=== PATIENT | female | born 1955 | race African-American/Black ===

== ENCOUNTER → 2016-11-05 | Outpatient (REF) | payer MEDICAID ==
[~2016-11-05] MED LIST: ACET-654 PO; AMLO10TA PO; AMLO5TAB2 PO; ATOR1TAB21 PO; ATOR40TA PO; BACL10TA PO; BACL10TA2 PO; CALC600T28 PO; CALC600T53 PO; CALC600T7 PO; COLA100C PO; COUM1TAB17 PO; FERR325T PO; GABA300C3 PO; GABA600T PO; HYDR200T3 PO; ISON300T4 PO; LIDO1OIN2 TOP; LISI10TA4 PO; MAPA325T2 PO; MILKSUS PO; PEG1POW PO; PYRI50TA PO; SENO8.6T10 PO; SERT25TA85 PO; ZOLO25TA PO
[2016-11-05 11:17] LABS: INR 2.64
== END ==
PROVIDERS: ATTEND Nurse Practitioner Family
DX: Z51.81 Encounter for therapeutic drug level monitoring (principal); Z79.01 Long term (current) use of anticoagulants; I63.9 Cerebral infarction, unspecified

== ENCOUNTER → 2016-11-26 | Outpatient (REF) | payer MEDICAID ==
[2016-11-26 09:39] LABS: INR 2.61
== END ==
PROVIDERS: ATTEND Nurse Practitioner Family
DX: Z51.81 Encounter for therapeutic drug level monitoring (principal); Z79.01 Long term (current) use of anticoagulants; Z86.73 Personal history of transient ischemic attack (TIA), and cerebral infarction without residual deficits

== ENCOUNTER → 2016-12-03 | Outpatient (REF) | payer MEDICAID ==
[2016-12-03 09:40] LABS: INR 2.55
== END ==
PROVIDERS: ATTEND Nurse Practitioner Family
DX: Z51.81 Encounter for therapeutic drug level monitoring (principal); S61.401A Unspecified open wound of right hand, initial encounter; X58.XXXA Exposure to other specified factors, initial encounter; Y92.9 Unspecified place or not applicable; Z79.01 Long term (current) use of anticoagulants

== ENCOUNTER → 2016-12-10 | Outpatient (REF) | payer MEDICAID ==
[2016-12-10 11:16] LABS: INR 4.9
== END ==
PROVIDERS: ATTEND Nurse Practitioner Family
DX: Z51.81 Encounter for therapeutic drug level monitoring (principal); Z79.01 Long term (current) use of anticoagulants; Z86.73 Personal history of transient ischemic attack (TIA), and cerebral infarction without residual deficits

== ENCOUNTER → 2016-12-16 | Outpatient (REF) | payer MEDICAID ==
[2016-12-16 11:02] LABS: INR 4.34
== END ==
PROVIDERS: ATTEND Nurse Practitioner Family
DX: Z51.81 Encounter for therapeutic drug level monitoring (principal); Z79.01 Long term (current) use of anticoagulants; Z86.73 Personal history of transient ischemic attack (TIA), and cerebral infarction without residual deficits

== ENCOUNTER → 2016-12-29 | Outpatient (CLI) | payer MEDICAID | LOC: M PT 09:46 | PROVIDERS: ATTEND Nurse Practitioner Family | DX: I69.359 Hemiplegia and hemiparesis following cerebral infarction affecting unspecified side (principal); R26.2 Difficulty in walking, not elsewhere classified ==

== ENCOUNTER → 2016-12-31 | Outpatient (REF) | payer MEDICAID ==
[~2016-12-31] MED LIST changes: +ALDA25TA4 PO; -COLA100C PO; +COLA100C3 PO; +COUM1TAB14 PO; +COUM2TAB10 PO; +GABA-282 PO; -GABA300C3 PO; +GLIP5TAB8 PO; +MELA5TAB14 PO; +NASA0.057; +REGL10TA6 PO; +SERT25TA PO; -SERT25TA85 PO; +SERT50TA PO; +ZOFR20TA PO
[2016-12-31 09:50] LABS: MEAN CORPUSCULAR HEMOGLOBIN 26.9 pg (27.0-33.0); MEAN CORPUSCULAR HGB CONC 32.2 g/dl (32.0-36.5); MEAN CORPUSCULAR VOLUME 83.4 fl (80.0-96.0); RED CELL DISTRIBUTION WIDTH 14.7 % (11.5-14.5); WHITE BLOOD COUNT 5.3 K/mm3 (4.0-10.0)
[2016-12-31 10:28] LABS: ALBUMIN 3.4 GM/DL (3.2-5.2); ALKALINE PHOSPHATASE 76 U/L (45-117); ALT/SGPT 38 U/L (12-78); ANION GAP 6 MEQ/L (8-16); AST/SGOT 25 U/L (15-37); BILIRUBIN,TOTAL 0.3 MG/DL (0.2-1.0); BLOOD UREA NITROGEN 14 MG/DL (7-18); CALCIUM LEVEL 8.4 MG/DL (8.8-10.2); CARBON DIOXIDE LEVEL 29 MEQ/L (21-32); CHLORIDE LEVEL 105 MEQ/L (98-107); CREATININE FOR GFR 0.97 MG/DL (0.55-1.02); GLOMERULAR FILTRATION RATE > 60.0 (>45); GLUCOSE, FASTING 178 MG/DL (80-110); POTASSIUM SERUM 4.5 MEQ/L (3.5-5.1); SODIUM LEVEL 140 MEQ/L (136-145); TOTAL PROTEIN 6.5 GM/DL (6.4-8.2)
== END ==
PROVIDERS: ATTEND Nurse Practitioner Family
DX: I10 Essential (primary) hypertension (principal)

== ENCOUNTER → 2017-02-04 | Outpatient (REF) | payer MEDICAID ==
[2017-02-04 10:38] LABS: INR 1.57
== END ==
PROVIDERS: ATTEND Nurse Practitioner Family
DX: Z51.81 Encounter for therapeutic drug level monitoring (principal); Z79.01 Long term (current) use of anticoagulants; Z86.73 Personal history of transient ischemic attack (TIA), and cerebral infarction without residual deficits

== ENCOUNTER → 2017-03-03 | Outpatient (REF) | payer MEDICAID ==
[2017-03-03 11:17] LABS: INR 1.95
== END ==
PROVIDERS: ATTEND Nurse Practitioner Family
DX: Z51.81 Encounter for therapeutic drug level monitoring (principal); Z79.01 Long term (current) use of anticoagulants; Z86.73 Personal history of transient ischemic attack (TIA), and cerebral infarction without residual deficits

== ENCOUNTER → 2017-03-23 | Outpatient (REF) | payer MEDICAID ==
[2017-03-23 18:42] LABS: CALCIUM OXALATE CRYSTALS SMALL
== END ==
PROVIDERS: ATTEND Nurse Practitioner Family
DX: N39.0 Urinary tract infection, site not specified (principal)

== ENCOUNTER → 2017-04-08 | Outpatient (REF) | payer MEDICAID ==
[2017-04-08 10:37] LABS: INR 2.86
== END ==
PROVIDERS: ATTEND Nurse Practitioner Family
DX: Z51.81 Encounter for therapeutic drug level monitoring (principal); Z79.01 Long term (current) use of anticoagulants; Z86.73 Personal history of transient ischemic attack (TIA), and cerebral infarction without residual deficits

== ENCOUNTER → 2017-05-06 | Outpatient (REF) | payer MEDICARE, MEDICAID ==
[~2017-05-06] MED LIST changes: -ACET-654 PO; +ACET1TAB17 PO; -ATOR40TA PO; +ATOR40TA75 PO; -BACL10TA PO; +BACL1TAB8 PO; +CALC1TAB74 PO; -CALC600T53 PO; -COLA100C3 PO; +COLA100C5 PO; -COUM2TAB10 PO; +COUM2TAB22 PO; +FERR1TAB8 PO; -FERR325T PO; -MELA5TAB14 PO; +MELA5TAB17 PO; +NASA0.0517; -NASA0.057
[2017-05-06 11:05] LABS: INR 2.35
== END ==
PROVIDERS: ATTEND Nurse Practitioner Family
DX: I48.91 Unspecified atrial fibrillation (principal)

== ENCOUNTER → 2017-06-03 | Outpatient (REF) | payer MEDICARE, MEDICAID ==
[2017-06-03 10:32] LABS: INR 2.18
== END ==
PROVIDERS: ATTEND Nurse Practitioner Family
DX: Z51.81 Encounter for therapeutic drug level monitoring (principal); Z79.01 Long term (current) use of anticoagulants; I48.2 Chronic atrial fibrillation

== ENCOUNTER → 2017-06-23 | Outpatient (REF) | payer MEDICARE, MEDICAID ==
[2017-06-23 11:26] LABS: MEAN CORPUSCULAR HGB CONC 31.8 g/dl (32.0-36.5); RED CELL DISTRIBUTION WIDTH 15.1 % (11.5-14.5); WHITE BLOOD COUNT 5.6 K/mm3 (4.0-10.0)
[2017-06-23 11:52] LABS: ALBUMIN 3.3 GM/DL (3.2-5.2); ALKALINE PHOSPHATASE 78 U/L (45-117); ALT/SGPT 39 U/L (12-78); ANION GAP 8 MEQ/L (8-16); AST/SGOT 23 U/L (15-37); BILIRUBIN,TOTAL 0.2 MG/DL (0.2-1.0); BLOOD UREA NITROGEN 12 MG/DL (7-18); CALCIUM LEVEL 8.9 MG/DL (8.8-10.2); CARBON DIOXIDE LEVEL 26 MEQ/L (21-32); CHLORIDE LEVEL 109 MEQ/L (98-107); CREATININE FOR GFR 0.95 MG/DL (0.55-1.02); GLOMERULAR FILTRATION RATE > 60.0 (>45); GLUCOSE, FASTING 122 MG/DL (80-110); POTASSIUM SERUM 4.4 MEQ/L (3.5-5.1); SODIUM LEVEL 143 MEQ/L (136-145); TOTAL PROTEIN 6.3 GM/DL (6.4-8.2)
== END ==
PROVIDERS: ATTEND Nurse Practitioner Family
DX: R13.10 Dysphagia, unspecified (principal); E11.9 Type 2 diabetes mellitus without complications

== ENCOUNTER → 2017-06-25 | Outpatient (CLI) | payer MEDICARE, MEDICAID ==
[~2017-06-25] MED LIST changes: +E-Z-PAQUE 96% w/w SUSP 176GM BTL As Ordered ONE; +VARIBAR NECTAR 40% w/v 240ML SUSP BTL As Ordered ONE; +VARIBAR PUDDING 40% w/v 230ML TUBE As Ordered ONE
--- NOTE | 2017-06-25 12:13 | REP ---
MODIFIED BARIUM SWALLOW: HISTORY: Dysphagia. History of stroke. Fluoroscopy time is 3 minutes 50 seconds. Cine fluoroscopy was utilized. FINDINGS: The study was performed in conjunction with the swallowing therapist. With the initial phase of the study, nectar consistency barium was given and there was some intraoral hesitancy. Mild laryngeal reflux was observed but no tracheal aspiration is seen. On the lateral radiograph there is degenerative disc disease at C4-5 and C5-6 and C6-7 with moderate anterior osteophyte formation at C5-6 and C6-7. These did not appear to interfere with deglutition. Subsequent ingestion of barium labeled material confirm the presence of a delay and hesitancy in intraoral transfer. Once initiated however, the swallowing reflex proceeded normally. No aspiration was seen. No other episodes of laryngeal penetration. IMPRESSION: Laryngeal reflux observed with thin liquid. There is delay in the oral and initiation phase of the barium swallow. Signed by Moises Muhammad MD 06/25/2017 01:59 P
== END ==
LOC: M RAD 10:21
PROVIDERS: ATTEND Nurse Practitioner Family
DX: R13.10 Dysphagia, unspecified (principal); K21.9 Gastro-esophageal reflux disease without esophagitis
CPT/HCPCS: 74230; 92611; G8996; G8997

== ENCOUNTER → 2017-07-01 | Outpatient (REF) | payer MEDICAID ==
[~2017-07-01] MED LIST changes: -E-Z-PAQUE 96% w/w SUSP 176GM BTL As Ordered ONE; -VARIBAR NECTAR 40% w/v 240ML SUSP BTL As Ordered ONE; -VARIBAR PUDDING 40% w/v 230ML TUBE As Ordered ONE
[2017-07-01 10:44] LABS: INR 1.98
== END ==
PROVIDERS: ATTEND Nurse Practitioner Family
DX: I48.91 Unspecified atrial fibrillation (principal)

== ENCOUNTER → 2017-07-14 | Outpatient (REF) | payer MEDICARE, MEDICAID ==
[2017-07-14 11:04] LABS: INR 2.53
== END ==
PROVIDERS: ATTEND Nurse Practitioner Family
DX: I48.91 Unspecified atrial fibrillation (principal)

== ENCOUNTER → 2017-08-11 | Outpatient (REF) | payer MEDICARE, MEDICAID ==
[2017-08-11 12:16] LABS: INR 2.48
== END ==
PROVIDERS: ATTEND Nurse Practitioner Family
DX: I48.91 Unspecified atrial fibrillation (principal)

== ENCOUNTER 2017-08-26 13:00 | Outpatient (RCR) | payer MEDICARE, MEDICAID | END 2017-09-01 | LOC: M ST 13:00 | PROVIDERS: ATTEND Nurse Practitioner Family | DX: R13.12 Dysphagia, oropharyngeal phase (principal) | CPT/HCPCS: 92526; 92610; G8996; G8997 ==

== ENCOUNTER 2017-09-02 12:50 | Outpatient (RCR) | payer MEDICARE, MEDICAID | END 2017-10-01 | LOC: M ST 12:50 | PROVIDERS: ATTEND Nurse Practitioner Family | DX: R13.12 Dysphagia, oropharyngeal phase (principal) | CPT/HCPCS: 92526; G8996; G8997; G8998 ==

== ENCOUNTER → 2017-09-08 | Outpatient (REF) | payer MEDICARE, MEDICAID ==
[2017-09-08 12:33] LABS: INR 2.01
== END ==
PROVIDERS: ATTEND Nurse Practitioner Family
DX: I48.91 Unspecified atrial fibrillation (principal)

== ENCOUNTER → 2017-09-23 | Outpatient (REF) | payer MEDICARE, MEDICAID | DX: F45.8 Other somatoform disorders (principal) | CPT/HCPCS: 70360 ==

== ENCOUNTER → 2017-09-29 | Outpatient (REF) | payer MEDICARE, MEDICAID ==
[2017-09-29 12:28] LABS: MEAN CORPUSCULAR HEMOGLOBIN 25.9 pg (27.0-33.0); MEAN CORPUSCULAR VOLUME 81.1 fl (80.0-96.0); PLATELET COUNT, AUTOMATED 292 10^3/uL (150-450); RED CELL DISTRIBUTION WIDTH 15.7 % (11.5-14.5); WHITE BLOOD COUNT 5.8 10^3/uL (4.0-10.0)
[2017-09-29 13:08] LABS: ALBUMIN 3.4 GM/DL (3.2-5.2); ALBUMIN/GLOBULIN RATIO 1.03 (1.00-1.93); ALKALINE PHOSPHATASE 69 U/L (45-117); ALT/SGPT 42 U/L (12-78); ANION GAP 11 MEQ/L (8-16); AST/SGOT 19 U/L (7-37); BILIRUBIN,TOTAL 0.2 MG/DL (0.2-1.0); BLOOD UREA NITROGEN 15 MG/DL (7-18); CALCIUM LEVEL 8.8 MG/DL (8.8-10.2); CARBON DIOXIDE LEVEL 25 MEQ/L (21-32); CHLORIDE LEVEL 106 MEQ/L (98-107); CREATININE FOR GFR 0.95 MG/DL (0.55-1.02); GLOMERULAR FILTRATION RATE > 60.0 (>45); GLUCOSE, FASTING 174 MG/DL (80-110); POTASSIUM SERUM 4.1 MEQ/L (3.5-5.1); SODIUM LEVEL 142 MEQ/L (136-145); TOTAL PROTEIN 6.7 GM/DL (6.4-8.2)
== END ==
PROVIDERS: ATTEND Nurse Practitioner Family
DX: E11.9 Type 2 diabetes mellitus without complications (principal)

== ENCOUNTER → 2017-10-06 | Outpatient (REF) | payer MEDICARE, MEDICAID ==
[2017-10-06 10:04] LABS: INR 2.56
== END ==
PROVIDERS: ATTEND Nurse Practitioner Family
DX: I48.91 Unspecified atrial fibrillation (principal); Z51.81 Encounter for therapeutic drug level monitoring; Z79.01 Long term (current) use of anticoagulants

== ENCOUNTER → 2017-11-03 | Outpatient (REF) | payer MEDICARE, MEDICAID ==
[2017-11-03 10:20] LABS: INR 2.73; PROTHROMBIN TIME 30.1 SECONDS (12.4-14.5)
== END ==
DX: I48.91 Unspecified atrial fibrillation (principal)
CPT/HCPCS: 85610

== ENCOUNTER → 2017-12-01 | Outpatient (REF) | payer MEDICARE, MEDICAID ==
[2017-12-01 11:29] LABS: HEMATOCRIT 38.7 % (36.0-47.0); HEMOGLOBIN 12.4 g/dl (12.0-16.0); MEAN CORPUSCULAR HEMOGLOBIN 25.8 pg (27.0-33.0); MEAN CORPUSCULAR VOLUME 80.6 fl (80.0-96.0); PLATELET COUNT, AUTOMATED 353 10^3/uL (150-450); RED CELL DISTRIBUTION WIDTH 15.4 % (11.5-14.5); WHITE BLOOD COUNT 6.5 10^3/uL (4.0-10.0)
[2017-12-01 11:40] LABS: INR 2.61
[2017-12-01 11:45] LABS: ESTIMATED AVERAGE GLUCOSE 123 MG/DL (60-110); HEMOGLOBIN A1c 5.9 %
[2017-12-01 12:00] LABS: ALBUMIN 4.3 GM/DL (3.2-5.2); ALBUMIN/GLOBULIN RATIO 1.26 (1.00-1.93); ALKALINE PHOSPHATASE 93 U/L (45-117); ALT/SGPT 49 U/L (12-78); ANION GAP 10 MEQ/L (8-16); AST/SGOT 27 U/L (7-37); BILIRUBIN,TOTAL 0.4 MG/DL (0.2-1.0); BLOOD UREA NITROGEN 14 MG/DL (7-18); CALCIUM LEVEL 8.9 MG/DL (8.8-10.2); CARBON DIOXIDE LEVEL 25 MEQ/L (21-32); CHLORIDE LEVEL 107 MEQ/L (98-107); CREATININE FOR GFR 1.16 MG/DL (0.55-1.30); GLOMERULAR FILTRATION RATE > 60.0 (>45); GLUCOSE, FASTING 100 MG/DL (70-100); POTASSIUM SERUM 4.1 MEQ/L (3.5-5.1); SODIUM LEVEL 142 MEQ/L (136-145); TOTAL PROTEIN 7.7 GM/DL (6.4-8.2)
== END ==
DX: I48.91 Unspecified atrial fibrillation (principal); R73.01 Impaired fasting glucose
CPT/HCPCS: 80053

== ENCOUNTER → 2017-12-29 | Outpatient (REF) | payer MEDICARE, MEDICAID ==
[2017-12-29 11:11] LABS: PROTHROMBIN TIME 23.4 SECONDS (12.4-14.5)
== END ==
DX: I48.91 Unspecified atrial fibrillation (principal)
CPT/HCPCS: 85610

== ENCOUNTER → 2018-02-09 | Outpatient (REF) | payer MEDICARE, MEDICAID ==
[2018-02-09 10:45] LABS: INR 2.52; PROTHROMBIN TIME 28.2 SECONDS (12.4-14.5)
== END ==
DX: I48.91 Unspecified atrial fibrillation (principal)
CPT/HCPCS: 85610

== ENCOUNTER → 2018-02-23 | Outpatient (REF) | payer MEDICARE, MEDICAID ==
[2018-02-23 10:53] LABS: PROTHROMBIN TIME 26.2 SECONDS (12.4-14.5)
== END ==
DX: I48.91 Unspecified atrial fibrillation (principal); Z51.81 Encounter for therapeutic drug level monitoring; Z79.01 Long term (current) use of anticoagulants
CPT/HCPCS: 85610

== ENCOUNTER → 2018-03-23 | Outpatient (REF) | payer MEDICARE, MEDICAID ==
[2018-03-23 09:56] LABS: INR 2.11; PROTHROMBIN TIME 24.4 SECONDS (12.4-14.5)
== END ==
DX: I48.91 Unspecified atrial fibrillation (principal); Z79.01 Long term (current) use of anticoagulants
CPT/HCPCS: 85610

== ENCOUNTER → 2018-04-20 | Outpatient (REF) | payer MEDICARE, MEDICAID ==
[2018-04-20 10:02] LABS: INR 2.84
== END ==
DX: I48.91 Unspecified atrial fibrillation (principal); Z79.01 Long term (current) use of anticoagulants
CPT/HCPCS: 85610

== ENCOUNTER → 2018-04-30 | Outpatient (REF) | payer MEDICARE, MEDICAID ==
[2018-04-30 10:50] LABS: ESTIMATED AVERAGE GLUCOSE 103 MG/DL (60-110); HEMOGLOBIN A1c 5.2 %
[2018-04-30 11:02] LABS: ALBUMIN 3.4 GM/DL (3.2-5.2); ALKALINE PHOSPHATASE 80 U/L (45-117); ALT/SGPT 43 U/L (12-78); ANION GAP 9 MEQ/L (8-16); AST/SGOT 22 U/L (7-37); BILIRUBIN,TOTAL 0.2 MG/DL (0.2-1.0); BLOOD UREA NITROGEN 12 MG/DL (7-18); CALCIUM LEVEL 8.4 MG/DL (8.8-10.2); CARBON DIOXIDE LEVEL 27 MEQ/L (21-32); CHLORIDE LEVEL 108 MEQ/L (98-107); CREATININE FOR GFR 0.89 MG/DL (0.55-1.30); GLOMERULAR FILTRATION RATE > 60.0 (>45); GLUCOSE, FASTING 127 MG/DL (70-100); POTASSIUM SERUM 4.5 MEQ/L (3.5-5.1); SODIUM LEVEL 144 MEQ/L (136-145); TOTAL PROTEIN 6.5 GM/DL (6.4-8.2)
== END ==
DX: E11.9 Type 2 diabetes mellitus without complications (principal)
CPT/HCPCS: 80053

== ENCOUNTER → 2018-05-18 | Outpatient (REF) | payer MEDICARE, MEDICAID ==
[2018-05-18 09:40] LABS: INR 2.43; PROTHROMBIN TIME 26.9 SECONDS (12.1-14.4)
== END ==
DX: I48.91 Unspecified atrial fibrillation (principal)
CPT/HCPCS: 85610

== ENCOUNTER 2018-06-25 17:07 | Emergency (ER) | payer MEDICARE, MEDICAID ==
[2018-06-25 18:29] LABS: BASO % 0.3 % (0.0-1.0); EOS # 0.1 10^3/uL (0.0-0.50); EOS % 1.2 % (0.0-3.0); HEMATOCRIT 39.9 % (36.0-47.0); HEMOGLOBIN 12.7 g/dl (12.0-15.5); IMMATURE GRANULOCYTE % 0.2 % (0-3.0); LYMPH # 3.5 10^3/uL (1.5-4.5); LYMPH % 54.4 % (24.0-44.0); MEAN CORPUSCULAR HEMOGLOBIN 25.9 pg (27.0-33.0); MEAN CORPUSCULAR HGB CONC 31.8 g/dl (32.0-36.5); MEAN CORPUSCULAR VOLUME 81.4 fl (80.0-96.0); MONO # 0.6 10^3/uL (0.0-0.8); MONO % 9.6 % (0.0-5.0); NEUTROPHILS # 2.2 10^3/uL (1.8-7.7); NEUTROPHILS % 34.3 % (36.0-66.0); PLATELET COUNT, AUTOMATED 315 10^3/uL (150-450); RED CELL DISTRIBUTION WIDTH 15.5 % (11.5-14.5); WHITE BLOOD COUNT 6.4 10^3/uL (4.0-10.0)
[2018-06-25 18:42] LABS: INR 2.62; PROTHROMBIN TIME 28.6 SECONDS (12.1-14.4)
[2018-06-25 18:43] LABS: PARTIAL THROMBOPLASTIN TIME 38.2 SECONDS (25.4-37.6)
[2018-06-25 18:51] LABS: ERYTHROCYTE SEDIMENTATION RATE 27 mm/hr (0-30)
[2018-06-25 18:58] LABS: ALBUMIN 3.7 GM/DL (3.2-5.2); ALBUMIN/GLOBULIN RATIO 0.93 (1.00-1.93); ALKALINE PHOSPHATASE 90 U/L (45-117); ALT/SGPT 46 U/L (12-78); ANION GAP 7 MEQ/L (8-16); AST/SGOT 24 U/L (7-37); BILIRUBIN,DIRECT < 0.1 MG/DL (0.0-0.2); BILIRUBIN,TOTAL 0.2 MG/DL (0.2-1.0); BLOOD UREA NITROGEN 15 MG/DL (7-18); C REACTIVE PROTEIN QUANTITATIV 1.18 MG/DL (0.00-0.30); CALCIUM LEVEL 9.2 MG/DL (8.8-10.2); CARBON DIOXIDE LEVEL 27 MEQ/L (21-32); CHLORIDE LEVEL 108 MEQ/L (98-107); CK-MB VALUE MASS < 1.0 NG/ML (<3.6); CPK CREATINE PHOSPHOKINASE 196 U/L (26-192); CREATININE FOR GFR 1.06 MG/DL (0.55-1.30); GLOMERULAR FILTRATION RATE > 60.0 (>45); GLUCOSE, FASTING 88 MG/DL (70-100); MB/CK RELATIVE INDEX 0.51 (< OR =4); SODIUM LEVEL 142 MEQ/L (136-145); TOTAL PROTEIN 7.7 GM/DL (6.4-8.2); TROPONIN I < 0.02 NG/ML (< 0.10)
[2018-06-25] MEDS: METOCLOPRAMIDE INJ 10MG/2ML VIAL (J2765) IV ×2 (19:15)
[2018-06-25] MEDS: KETOROLAC 30 MG/ML VIAL (J1885) IV ×2 (19:15)
== END 2018-06-25 22:48 | disposition home or self-care (01) ==
LOC: M ED 17:07
DX: R51 Headache (principal); I10 Essential (primary) hypertension; E78.5 Hyperlipidemia, unspecified; Z86.73 Personal history of transient ischemic attack (TIA), and cerebral infarction without residual deficits; M32.9 Systemic lupus erythematosus, unspecified
CPT/HCPCS: J1885

== ENCOUNTER → 2018-06-25 | Outpatient (REF) | payer MEDICARE, MEDICAID ==
[2018-06-25 10:37] LABS: INR 2.77; PROTHROMBIN TIME 29.8 SECONDS (12.1-14.4)
== END ==
DX: I48.91 Unspecified atrial fibrillation (principal)
CPT/HCPCS: 85610

== ENCOUNTER → 2018-07-20 | Outpatient (REF) | payer MEDICARE, MEDICAID ==
[2018-07-20 10:25] LABS: INR 2.64; PROTHROMBIN TIME 28.7 SECONDS (12.1-14.4)
== END ==
DX: I48.91 Unspecified atrial fibrillation (principal); Z79.01 Long term (current) use of anticoagulants
CPT/HCPCS: 85610

== ENCOUNTER → 2018-08-17 | Outpatient (REF) | payer MEDICARE, MEDICAID ==
[2018-08-17 10:09] LABS: INR 2.61; PROTHROMBIN TIME 28.5 SECONDS (12.1-14.4)
== END ==
DX: I48.91 Unspecified atrial fibrillation (principal)
CPT/HCPCS: 85610

== ENCOUNTER → 2018-09-14 | Outpatient (REF) | payer MEDICARE, MEDICAID ==
[2018-09-14 14:15] LABS: INR 2.74; PROTHROMBIN TIME 29.6 SECONDS (12.1-14.4)
== END ==
DX: I48.91 Unspecified atrial fibrillation (principal); Z79.01 Long term (current) use of anticoagulants
CPT/HCPCS: 85610

== ENCOUNTER → 2018-10-01 | Outpatient (CLI) | payer MEDICARE, MEDICAID | LOC: M SMT 13:14 | DX: M41.9 Scoliosis, unspecified (principal); M54.6 Pain in thoracic spine | CPT/HCPCS: 72072 ==

== ENCOUNTER → 2018-10-12 | Outpatient (REF) | payer MEDICARE, MEDICAID ==
[~2018-10-12] MED LIST changes: -ACET1TAB17 PO; +ACET1TAB55 PO; -AMLO5TAB2 PO; +AMLO5TAB4 PO; +COUM6TAB PO; -GABA-282 PO; +GABA-843 PO; +METF500T13 PO; +MILK12002 PO; -MILKSUS PO; +MUCI600T31 PO; +OMEP10CASR PO; -ZOFR20TA PO; +ZOFR4TAB16 PO; +ZOLO100T PO
[2018-10-12 10:10] LABS: HEMATOCRIT 37.6 % (36.0-47.0); HEMOGLOBIN 11.9 g/dl (12.0-15.5); MEAN CORPUSCULAR HEMOGLOBIN 25.6 pg (27.0-33.0); MEAN CORPUSCULAR HGB CONC 31.6 g/dl (32.0-36.5); MEAN CORPUSCULAR VOLUME 80.9 fl (80.0-96.0); PLATELET COUNT, AUTOMATED 312 10^3/uL (150-450); RED BLOOD COUNT 4.65 10^6/uL (4.00-5.40); WHITE BLOOD COUNT 5.7 10^3/uL (4.0-10.0)
[2018-10-12 10:25] LABS: INR 2.52; PROTHROMBIN TIME 27.7 SECONDS (12.1-14.4)
[2018-10-12 10:42] LABS: ALBUMIN 3.6 GM/DL (3.2-5.2); ALT/SGPT 68 U/L (12-78); BILIRUBIN,TOTAL 0.3 MG/DL (0.2-1.0); BLOOD UREA NITROGEN 18 MG/DL (7-18); CALCIUM LEVEL 8.7 MG/DL (8.8-10.2); CARBON DIOXIDE LEVEL 27 MEQ/L (21-32); CHLORIDE LEVEL 105 MEQ/L (98-107); CHOLESTEROL LEVEL 149 MG/DL (<200); CREATININE FOR GFR 1.03 MG/DL (0.55-1.30); GLOMERULAR FILTRATION RATE > 60.0 (>45); GLUCOSE, FASTING 115 MG/DL (70-100); HDL CHOLESTEROL 56 MG/DL (>40); LDL CHOLESTEROL 73 MG/DL (<100); NON-HDL-C 93 MG/DL; POTASSIUM SERUM 4.1 MEQ/L (3.5-5.1); SODIUM LEVEL 141 MEQ/L (136-145); TOTAL PROTEIN 6.8 GM/DL (6.4-8.2); TRIGLYCERIDES LEVEL 99 MG/DL (<150)
== END ==
PROVIDERS: ATTEND Nurse Practitioner Family
DX: I48.91 Unspecified atrial fibrillation (principal); Z79.899 Other long term (current) drug therapy

== ENCOUNTER 2018-12-06 11:29 | Day surgery (SDC) | payer MEDICARE, MEDICAID ==
[~2018-12-06] VITALS: Ht 165.1 cm; Wt 93.0 kg
[~2018-12-06 11:29] MED LIST changes: -AMLO5TAB4 PO; +AMLO5TAB6 PO; -GABA600T PO; +GABA600T4 PO; +LIDOCAINE 2% INJ 100 MG/5 ML SDV (FOR ANES.) As Ordered ONE; +MILK120011 PO; -MILK12002 PO; +NS 1,000 ML IV ONE; +PROPOFOL 200 MG/20 ML VIAL As Ordered ONE; +TYLE1TAB5 PO
--- NOTE | 2018-12-06 13:05 | ROOR ---
Patient Name: Meghan Brown Procedure Date: 12/06/2018 12:24 PM Date of : 1955 Age: 63 Room: [facility] Gender: Female Note Status: Finalized Procedure: Total Colonoscopy to Cecum + Cold Snare Polypectomy + Hemoclips Indications: High risk colon cancer surveillance: Personal history of colonic polyps, Last colonoscopy: 2015 Providers: Noé Sellers MD Referring MD: BONIFACIO HARRINGTON JR, MD Requesting Provider: Medicines: Monitored Anesthesia Care Complications: No immediate complications. Procedure: Pre-Anesthesia Assessment: - The heart rate, respiratory rate, oxygen saturations, blood pressure, adequacy of pulmonary ventilation, and response to care were monitored throughout the procedure. The Colonoscope was introduced through the anus and advanced to the cecum, identified by appendiceal orifice and ileocecal valve. The colonoscopy was performed without difficulty. The patient tolerated the procedure well. The quality of the bowel preparation was good. Findings: The perianal and digital rectal examinations were normal. Non-bleeding internal hemorrhoids were found during retroflexion. The hemorrhoids were small and Grade I (internal hemorrhoids that do not prolapse). Multiple small and large-mouthed diverticula were found in the recto-sigmoid colon, sigmoid colon and descending colon. A small polyp was found in the proximal ascending colon. The polyp was sessile. The polyp was removed with a cold snare. Resection and retrieval were complete. A large polyp was found in the distal ascending colon. The polyp was sessile. The polyp was removed with a cold snare. Polyp resection was incomplete. The resected tissue was retrieved. To prevent bleeding after the polypectomy, two hemostatic clips were successfully placed (MR conditional). There was no bleeding at the end of the procedure. The exam was otherwise without abnormality on direct and retroflexion views. Impression: - Non-bleeding internal hemorrhoids. - Diverticulosis in the recto-sigmoid colon, in the sigmoid colon and in the descending colon. - One small polyp in the proximal ascending colon, removed with a cold snare. Resected and retrieved. - One large polyp in the distal ascending colon, removed with a cold snare. Incomplete resection. Resected tissue retrieved. Clips (MR conditional) were placed. - The examination was otherwise normal on direct and retroflexion views. - The exam was otherwise normal to the cecum. Recommendation: - Patient has a contact number available for emergencies. The signs and symptoms of potential delayed complications were discussed with the patient. Return to normal activities tomorrow. Written discharge instructions were provided to the patient. - High fiber diet. - Discharge patient to home. - Resume Coumadin (warfarin) at prior dose today. - Await pathology results. - Telephone GI clinic for pathology results in 1 week. - Repeat colonoscopy in 3 months for surveillance based on pathology results. - Return to referring physician. - The findings and recommendations were discussed with the patient's family. Noé Sellers MD Noé Sellers MD 12/06/2018 1:04:53 PM This report has been signed electronically. Number of Addenda: 0 Note Initiated On: 12/06/2018 12:24 PM Estimated Blood Loss: Estimated blood loss: none.
[2018-12-06 14:30] VITALS: BP 143/78
== END 2018-12-06 16:05 | disposition home or self-care (01) ==
LOC: M OPP 11:29
PROVIDERS: ATTEND Internal Medicine Gastroenterology
DX: Z12.11 Encounter for screening for malignant neoplasm of colon (principal); Z86.010 Personal history of colon polyps; K64.0 First degree hemorrhoids; D12.2 Benign neoplasm of ascending colon; K57.30 Diverticulosis of large intestine without perforation or abscess without bleeding; I48.91 Unspecified atrial fibrillation; E11.9 Type 2 diabetes mellitus without complications; Z86.73 Personal history of transient ischemic attack (TIA), and cerebral infarction without residual deficits; Z79.899 Other long term (current) drug therapy; Z88.8 Allergy status to other drugs, medicaments and biological substances

== ENCOUNTER 2019-01-10 10:23 | Emergency (ER) | payer MEDICARE, MEDICAID ==
[~2019-01-10] VITALS: Ht 167.6 cm; Wt 88.6 kg
[~2019-01-10 10:23] MED LIST changes: -LIDOCAINE 2% INJ 100 MG/5 ML SDV (FOR ANES.) As Ordered ONE; -NS 1,000 ML IV ONE; -PROPOFOL 200 MG/20 ML VIAL As Ordered ONE
[2019-01-10] MEDS ORDERED: MORPHINE 2 MG/ML 1ML SYRINGE (J2270) IV ONE (11:00)
[2019-01-10] MEDS ORDERED: ONDANSETRON 4MG/2ML VIAL (J2405) IV ONE (11:00)
[2019-01-10 11:52] LABS: BASO % 0.5 % (0.0-1.0); EOS # 0.1 10^3/uL (0.0-0.50); EOS % 1.7 % (0.0-3.0); HEMATOCRIT 36.5 % (36.0-47.0); HEMOGLOBIN 11.5 g/dl (12.0-15.5); LYMPH # 2.8 10^3/uL (1.5-4.5); LYMPH % 46.9 % (24.0-44.0); MEAN CORPUSCULAR HEMOGLOBIN 25.4 pg (27.0-33.0); MEAN CORPUSCULAR HGB CONC 31.5 g/dl (32.0-36.5); MEAN CORPUSCULAR VOLUME 80.8 fl (80.0-96.0); MONO # 0.6 10^3/uL (0.0-0.8); MONO % 10.7 % (0.0-5.0); NEUTROPHILS # 2.4 10^3/uL (1.8-7.7); PLATELET COUNT, AUTOMATED 294 10^3/uL (150-450); RED BLOOD COUNT 4.52 10^6/uL (4.00-5.40); WHITE BLOOD COUNT 5.9 10^3/uL (4.0-10.0)
[2019-01-10 12:27] LABS: ALBUMIN 3.6 GM/DL (3.2-5.2); ALT/SGPT 46 U/L (12-78); BILIRUBIN,DIRECT < 0.1 MG/DL (0.0-0.2); BILIRUBIN,TOTAL 0.2 MG/DL (0.2-1.0); BLOOD UREA NITROGEN 15 MG/DL (7-18); CALCIUM LEVEL 8.6 MG/DL (8.8-10.2); CARBON DIOXIDE LEVEL 25 MEQ/L (21-32); CHLORIDE LEVEL 109 MEQ/L (98-107); CPK CREATINE PHOSPHOKINASE 259 U/L (26-192); CREATININE FOR GFR 1.24 MG/DL (0.55-1.30); GLOMERULAR FILTRATION RATE 56.5 (>45); GLUCOSE, FASTING 188 MG/DL (70-100); LIPASE 160 U/L (73-393); MB/CK RELATIVE INDEX 0.42 (< OR =4); SODIUM LEVEL 141 MEQ/L (136-145); TOTAL PROTEIN 7.2 GM/DL (6.4-8.2); TROPONIN I < 0.02 NG/ML (< 0.10)
[2019-01-10] MEDS ORDERED: COUM1TAB14 PO (12:39)
[2019-01-10] MEDS ORDERED: EUCE12CR TOP (12:39)
[2019-01-10] MEDS ORDERED: GABA-843 PO (12:39)
[2019-01-10] MEDS ORDERED: COUM6TAB PO (12:39)
[2019-01-10] MEDS ORDERED: SPIR-10 PO (12:39)
[2019-01-10] MEDS ORDERED: MELA2.5C3 PO (12:39)
[2019-01-10] MEDS ORDERED: HYDR25TAB PO (12:39)
[2019-01-10] MEDS ORDERED: MILK120011 PO (12:51)
[2019-01-10] MEDS ORDERED: MUCI600T31 PO (12:51)
[2019-01-10] MEDS ORDERED: GLIP5TAB8 PO (12:51)
[2019-01-10] MEDS ORDERED: SERT-138 PO (12:51)
[2019-01-10] MEDS ORDERED: ACET500T15 PO ×2 (12:51)
[2019-01-10] MEDS ORDERED: REGL10TA6 PO (12:51)
[2019-01-10] MEDS ORDERED: BENG1CRE3 TOP (12:51)
[2019-01-10] MEDS ORDERED: ATOR40TA75 PO (12:51)
[2019-01-10] MEDS ORDERED: ONDA4TAB5 PO (12:51)
[2019-01-10] MEDS ORDERED: MIRA3350 PO (12:51)
[2019-01-10] MEDS ORDERED: OCEA0.654 (12:51)
[2019-01-10] MEDS ORDERED: FERR1TAB8 PO (12:51)
[2019-01-10] MEDS ORDERED: VITA100T96 PO (12:51)
[2019-01-10] MEDS ORDERED: METF500T13 PO (12:51)
[2019-01-10] MEDS ORDERED: OMEP20CA3 PO (12:51)
[2019-01-10] MEDS ORDERED: TYLE1TAB5 PO (12:51)
[2019-01-10] MEDS ORDERED: HYDR200T3 PO (12:51)
[2019-01-10] MEDS ORDERED: MELA5TAB17 PO (12:51)
--- NOTE | 2019-01-10 15:05 | REP ---
LIMITED ABDOMINAL ULTRASOUND: 01/10/2019. CLINICAL HISTORY: Possible cholecystitis. COMPARISON: CT 07/24/2016. FINDINGS: Liver is homogeneous and hyperechoic throughout consistent with fatty infiltration. No focal hepatic mass. No significant intrahepatic biliary dilation or perihepatic ascites. The gallbladder shows normal wall thickness. There is no stone, sludge, pericholecystic fluid or sonographic Goncalves sign. The common bile duct is 7.5 mm, at or slightly above the upper limits of normal for age. No filling defects seen. That portion of pancreas seen is unremarkable but limited by bowel gas shadowing. Overall, no focal lesion seen. Right kidney 10.7 x 4.5 x 3.6 cm. No right upper quadrant free fluid. IMPRESSION: 1. Diffuse fatty infiltration liver without focal hepatic mass, any significant intrahepatic biliary dilatation nor adjacent ascites. 2. Gallbladder without stone, sludge, wall thickening or other acute finding. No sonographic Goncalves sign. 3. Common duct is 7.5 mm at or just above the upper limits of normal but without visible filling defect. 4. Pancreas limited in evaluation but those segments seen are unremarkable. The right kidney also unremarkable. Electronically Signed by Oscar Portillo MD 01/10/2019 07:56 P
[2019-01-10] MEDS ORDERED: ACETAMINOPHEN TAB 650MG DOSE (2X325MG) PO ONE (15:15)
[2019-01-10 17:40] VITALS: BP 140/73
== END 2019-01-10 17:45 | disposition home or self-care (01) ==
LOC: M ED 10:23 → EDBD 10:23 → M ED 17:45
DX: R10.9 Unspecified abdominal pain (principal); K76.0 Fatty (change of) liver, not elsewhere classified; E66.9 Obesity, unspecified; I10 Essential (primary) hypertension; I69.354 Hemiplegia and hemiparesis following cerebral infarction affecting left non-dominant side; E78.5 Hyperlipidemia, unspecified; M19.90 Unspecified osteoarthritis, unspecified site; M32.9 Systemic lupus erythematosus, unspecified; Z79.01 Long term (current) use of anticoagulants; Z79.899 Other long term (current) drug therapy; Z79.84 Long term (current) use of oral hypoglycemic drugs; Z98.890 Other specified postprocedural states; Z88.8 Allergy status to other drugs, medicaments and biological substances
CPT/HCPCS: 36415; 76705; 80048; 80076; 81001; 82550; 82553; 83690; 84484; 85025; 93041; 96374; 96375; 99284; J2270; J2405

== ENCOUNTER → 2019-01-25 | Outpatient (REF) | payer MEDICARE, MEDICAID ==
[~2019-01-25] MED LIST changes: +ACET500T15 PO; +BENG1CRE3 TOP; +EUCE12CR TOP; +HYDR25TAB PO; +MELA2.5C3 PO; +MIRA3350 PO; +OCEA0.654; +OMEP20CA3 PO; +ONDA4TAB5 PO; +SERT-138 PO; +SPIR-10 PO; +VITA100T96 PO
[2019-01-25 18:11] LABS: BASO % 0.3 % (0.0-1.0); EOS # 0.1 10^3/uL (0.0-0.50); LYMPH # 3.4 10^3/uL (1.5-4.5); LYMPH % 49.1 % (24.0-44.0); MEAN CORPUSCULAR HEMOGLOBIN 25.1 pg (27.0-33.0); MEAN CORPUSCULAR HGB CONC 31.6 g/dl (32.0-36.5); MEAN CORPUSCULAR VOLUME 79.5 fl (80.0-96.0); MONO # 0.7 10^3/uL (0.0-0.8); MONO % 9.4 % (0.0-5.0); NEUTROPHILS # 2.8 10^3/uL (1.8-7.7); NEUTROPHILS % 40.2 % (36.0-66.0); PLATELET COUNT, AUTOMATED 328 10^3/uL (150-450); RED BLOOD COUNT 4.78 10^6/uL (4.00-5.40)
[2019-01-25 18:48] LABS: ALBUMIN 4.1 GM/DL (3.2-5.2); BILIRUBIN,TOTAL 0.2 MG/DL (0.2-1.0); CALCIUM LEVEL 9.3 MG/DL (8.8-10.2); CHOLESTEROL RISK RATIO 2.728 (<5); CREATININE FOR GFR 1.17 MG/DL (0.55-1.30); FREE T4 0.83 NG/DL (0.76-1.46); GLOMERULAR FILTRATION RATE 49.9 (>45); MAGNESIUM LEVEL 1.9 MG/DL (1.8-2.4); PERCENT SATURATION 30.1 % (13.2-45.0); POTASSIUM SERUM 4.6 MEQ/L (3.5-5.1); THYROID STIMULATING HORMONE 2.22 uIU/ML (0.358-3.740); TOTAL PROTEIN 7.4 GM/DL (6.4-8.2)
[2019-01-25 18:50] LABS: APPEARANCE, URINE CLEAR (CLEAR); BACTERIA, URINE AUTO 1+ (NEGATIVE); BILIRUBIN, URINE AUTO NEGATIVE (NEGATIVE); BLOOD, URINE BLOOD 1+ (NEGATIVE); COLOR, URINE YELLOW (YELLOW); GLUCOSE, URINE (UA) AUTO 3+ mg/dL (NEGATIVE); KETONE, URINE AUTO NEGATIVE (NEGATIVE); LEUKOCYTE ESTERASE, URINE AUTO NEGATIVE (NEGATIVE); MUCUS, URINE SMALL (NEGATIVE); NITRITE, URINE AUTO NEGATIVE (NEGATIVE); PROTEIN, URINE AUTO NEGATIVE (NEGATIVE); RBC, URINE AUTO 9 /HPF (0-3); SPECIFIC GRAVITY URINE AUTO 1.023 (1.002-1.035); SQUAMOUS EPITHELIAL CELL UR AU 3 /HPF (0-6); UROBILINOGEN, URINE AUTO 0.2 mg/dL (0.0-2.0); WBC, URINE AUTO 0 /HPF (0-3)
[2019-01-25 18:55] LABS: MALB URINE SIEMENS 27.2 MG/L; MAU/CREAT RATIO 24.5 MCG/MG (0.0-30.0)
[2019-01-25 18:57] LABS: HEMOGLOBIN A1c 6.8 %
== END ==
LOC: M SFHCPLAZ 15:23
PROVIDERS: ATTEND Nurse Practitioner Family
DX: E11.9 Type 2 diabetes mellitus without complications (principal); D50.9 Iron deficiency anemia, unspecified; E78.5 Hyperlipidemia, unspecified; I10 Essential (primary) hypertension

== ENCOUNTER → 2019-02-15 | Outpatient (REF) | payer MEDICARE, MEDICAID ==
[~2019-02-15] MED LIST changes: -EUCE12CR TOP; +HYDR1CRE95 TOP; +ISON300T18 PO; -ISON300T4 PO; -PYRI50TA PO; +PYRI50TA5 PO; +SERT-141 PO; -SERT25TA PO; +SERT25TA85 PO; -SERT50TA PO; +VITA100T77 PO; -VITA100T96 PO
[2019-02-15 12:06] LABS: APPEARANCE, URINE HAZY (CLEAR); BACTERIA, URINE AUTO NEGATIVE (NEGATIVE); BILIRUBIN, URINE AUTO NEGATIVE (NEGATIVE); BLOOD, URINE BLOOD 1+ (NEGATIVE); COLOR, URINE YELLOW (YELLOW); GLUCOSE, URINE (UA) AUTO NEGATIVE (NEGATIVE); KETONE, URINE AUTO NEGATIVE (NEGATIVE); LEUKOCYTE ESTERASE, URINE AUTO NEGATIVE (NEGATIVE); MUCUS, URINE SMALL (NEGATIVE); NITRITE, URINE AUTO NEGATIVE (NEGATIVE); PROTEIN, URINE AUTO NEGATIVE (NEGATIVE); RBC, URINE AUTO 0 /HPF (0-3); SPECIFIC GRAVITY URINE AUTO 1.021 (1.002-1.035); SQUAMOUS EPITHELIAL CELL UR AU 3 /HPF (0-6); WBC, URINE AUTO 0 /HPF (0-3)
[2019-02-15 12:32] LABS: COMPLEMENT C3 170 MG/DL (90-180); COMPLEMENT C4 41 MG/DL (10-40); CPK CREATINE PHOSPHOKINASE 397 U/L (26-192); MB/CK RELATIVE INDEX 0.43 (< OR =4); TROPONIN I < 0.02 NG/ML (< 0.10)
[2019-02-17 00:06] LABS: ANA (HEP2) Negative (.)
== END ==
LOC: M SFHCPLAZ 09:41
PROVIDERS: ATTEND Nurse Practitioner Family
DX: M32.9 Systemic lupus erythematosus, unspecified (principal); R07.89 Other chest pain; I69.351 Hemiplegia and hemiparesis following cerebral infarction affecting right dominant side; Z51.81 Encounter for therapeutic drug level monitoring; Z79.01 Long term (current) use of anticoagulants

== ENCOUNTER → 2019-04-19 | Outpatient (REF) | payer MEDICARE, MEDICAID ==
[~2019-04-19] MED LIST changes: +CHLO25TA PO; +FLON1SPR NARES; +JARD1TAB3 PO; -MELA5TAB17 PO; +MELA5TAB31 PO; +MILKSUS3 PO; -OMEP20CA3 PO; +OMEP20CA4 PO; +SITA50TAB PO; +TELM1TAB33 PO; +WARF-23 PO; +ZANT150T40 PO
[2019-04-19 09:49] LABS: INR 1.53; PARTIAL THROMBOPLASTIN TIME 30.3 SECONDS (25.4-37.6); PROTHROMBIN TIME 18.6 SECONDS (12.1-14.4)
== END ==
PROVIDERS: ATTEND Nurse Practitioner Family
DX: Z79.01 Long term (current) use of anticoagulants (principal)

== ENCOUNTER → 2019-05-12 | Outpatient (REF) | payer MEDICARE, MEDICAID ==
[~2019-05-12] MED LIST changes: -FLON1SPR NARES; -TELM1TAB33 PO; -WARF-23 PO; -ZANT150T40 PO
[2019-05-12 15:57] LABS: BASO % 0.4 % (0.0-1.0); EOS # 0.1 10^3/uL (0.0-0.50); EOS % 1.6 % (0.0-3.0); HEMATOCRIT 40.3 % (36.0-47.0); HEMOGLOBIN 12.5 g/dl (12.0-15.5); LYMPH # 2.9 10^3/uL (1.5-4.5); LYMPH % 42.6 % (24.0-44.0); MEAN CORPUSCULAR HEMOGLOBIN 26.3 pg (27.0-33.0); MEAN CORPUSCULAR VOLUME 84.8 fl (80.0-96.0); MONO # 0.6 10^3/uL (0.0-0.8); MONO % 9.3 % (0.0-5.0); NEUTROPHILS # 3.1 10^3/uL (1.8-7.7); NEUTROPHILS % 45.8 % (36.0-66.0); PLATELET COUNT, AUTOMATED 321 10^3/uL (150-450); RED BLOOD COUNT 4.75 10^6/uL (4.00-5.40); WHITE BLOOD COUNT 6.9 10^3/uL (4.0-10.0)
[2019-05-12 16:03] LABS: INR 1.87; PROTHROMBIN TIME 21.3 SECONDS (11.8-14.0)
[2019-05-12 16:04] LABS: PARTIAL THROMBOPLASTIN TIME 34.2 SECONDS (25.0-38.4)
[2019-05-12 16:10] LABS: ALBUMIN 3.9 GM/DL (3.2-5.2); BILIRUBIN,TOTAL 0.2 MG/DL (0.2-1.0); CALCIUM LEVEL 9.4 MG/DL (8.8-10.2); CREATININE FOR GFR 1.26 MG/DL (0.55-1.30); GLOMERULAR FILTRATION RATE 45.8 (>45); MAGNESIUM LEVEL 2.1 MG/DL (1.8-2.4); POTASSIUM SERUM 4.2 MEQ/L (3.5-5.1); TOTAL PROTEIN 7.3 GM/DL (6.4-8.2)
[2019-05-12 16:24] LABS: HEMOGLOBIN A1c 5.4 %
== END ==
LOC: M SFHCPLAZ 12:58
PROVIDERS: ATTEND Family Medicine
DX: Z01.818 Encounter for other preprocedural examination (principal); E11.9 Type 2 diabetes mellitus without complications; I10 Essential (primary) hypertension; D50.9 Iron deficiency anemia, unspecified
CPT/HCPCS: 36415; 80053; 82607; 83036; 83735; 85025; 85046; 85610; 85730; G0463

== ENCOUNTER → 2019-05-19 | Outpatient (REF) | payer MEDICARE, MEDICAID ==
[2019-05-24 14:41] LABS: HPV HYBRID CAPTURE II Negative (Negative)
== END ==
LOC: M SFHCWAGY 13:46
PROVIDERS: ATTEND Nurse Practitioner Women's Health
DX: Z01.419 Encounter for gynecological examination (general) (routine) without abnormal findings (principal)
CPT/HCPCS: 87624; G0101; G0123

== ENCOUNTER → 2019-06-01 | Outpatient (REF) | payer MEDICARE, MEDICAID ==
[~2019-06-01] MED LIST changes: +FLON1SPR NARES; +TELM1TAB33 PO; +WARF-23 PO; +ZANT150T40 PO
[2019-06-01 11:41] LABS: INR 1.69; PROTHROMBIN TIME 19.6 SECONDS (11.8-14.0)
== END ==
PROVIDERS: ATTEND Nurse Practitioner Family
DX: I48.91 Unspecified atrial fibrillation (principal); Z79.01 Long term (current) use of anticoagulants

== ENCOUNTER → 2019-06-14 | Outpatient (REF) | payer MEDICARE, MEDICAID ==
[2019-06-14 10:00] LABS: INR 2.11; PROTHROMBIN TIME 23.5 SECONDS (11.8-14.0)
== END ==
PROVIDERS: ATTEND Nurse Practitioner Family
DX: Z51.81 Encounter for therapeutic drug level monitoring (principal); Z79.01 Long term (current) use of anticoagulants

== ENCOUNTER → 2019-06-15 | Outpatient (REF) | payer MEDICARE, MEDICAID ==
[~2019-06-15] MED LIST changes: +ACET-1146 PO; +CHLO125TA PO; +MELA1TAB9 PO; +METF-791 PO; +OMEP1CAP73 PO; -OMEP20CA4 PO; +OMEP40CA97 PO; +ONDA-83 PO; -ONDA4TAB5 PO
[2019-06-15 10:26] LABS: BASO % 0.5 % (0.0-1.0); EOS # 0.2 10^3/uL (0.0-0.50); EOS % 2.4 % (0.0-3.0); HEMATOCRIT 39.4 % (36.0-47.0); HEMOGLOBIN 12.5 g/dl (12.0-15.5); LYMPH # 3.1 10^3/uL (1.5-4.5); LYMPH % 50.2 % (24.0-44.0); MEAN CORPUSCULAR HEMOGLOBIN 26.3 pg (27.0-33.0); MEAN CORPUSCULAR HGB CONC 31.7 g/dl (32.0-36.5); MEAN CORPUSCULAR VOLUME 82.9 fl (80.0-96.0); MONO # 0.6 10^3/uL (0.0-0.8); MONO % 9.1 % (0.0-5.0); NEUTROPHILS # 2.3 10^3/uL (1.8-7.7); NEUTROPHILS % 37.6 % (36.0-66.0); PLATELET COUNT, AUTOMATED 336 10^3/uL (150-450); RED BLOOD COUNT 4.75 10^6/uL (4.00-5.40); WHITE BLOOD COUNT 6.2 10^3/uL (4.0-10.0)
[2019-06-15 10:40] LABS: INR 2.02; PARTIAL THROMBOPLASTIN TIME 34.8 SECONDS (25.0-38.4); PROTHROMBIN TIME 22.6 SECONDS (11.8-14.0)
[2019-06-15 11:06] LABS: ALBUMIN 3.6 GM/DL (3.2-5.2); BILIRUBIN,TOTAL 0.2 MG/DL (0.2-1.0); CALCIUM LEVEL 9.3 MG/DL (8.8-10.2); CHOLESTEROL RISK RATIO 2.982 (<5); CREATININE FOR GFR 1.1 MG/DL (0.55-1.30); FREE T4 0.8 NG/DL (0.76-1.46); GLOMERULAR FILTRATION RATE 53.4 (>45); MAGNESIUM LEVEL 2.3 MG/DL (1.8-2.4); POTASSIUM SERUM 4.4 MEQ/L (3.5-5.1); THYROID STIMULATING HORMONE 2.65 uIU/ML (0.358-3.740); TOTAL PROTEIN 6.9 GM/DL (6.4-8.2)
[2019-06-15 12:03] LABS: HEMOGLOBIN A1c 5.2 %
[2019-06-15 12:36] LABS: MALB URINE SIEMENS 23.7 MG/L; MAU/CREAT RATIO 23.2 MCG/MG (0.0-30.0)
== END ==
PROVIDERS: ATTEND Nurse Practitioner Family
DX: I10 Essential (primary) hypertension (principal); E78.5 Hyperlipidemia, unspecified; E11.9 Type 2 diabetes mellitus without complications; D50.9 Iron deficiency anemia, unspecified; Z79.01 Long term (current) use of anticoagulants; Z12.31 Encounter for screening mammogram for malignant neoplasm of breast; Z78.0 Asymptomatic menopausal state

== ENCOUNTER → 2019-06-15 | Outpatient (CLI) | payer MEDICARE, MEDICAID ==
[~2019-06-15] MED LIST changes: -ACET-1146 PO; -CHLO125TA PO; -MELA1TAB9 PO; -METF-791 PO; -OMEP1CAP73 PO; +OMEP20CA4 PO; -OMEP40CA97 PO; -ONDA-83 PO; +ONDA4TAB5 PO
--- NOTE | 2019-06-15 15:50 | REPMRS ---
Patient History The patient states she has not had a clinical breast exam in over a year. Patient is postmenopausal. No known family history of cancer. No Hormone Replacement Therapy Digital Woman Screen Mammo: June 15, 2019 - Exam #: [id number] Bilateral CC and MLO view(s) were taken. Technologist: Kay Márquez, Technologist Prior study comparison: May 15, 2016, bilateral digital mammo screening bilat, performed at [facility]. FINDINGS: There are scattered fibroglandular densities. There has been no change in the appearance of the mammogram from the prior studies. There is a mild amount of scattered fibroglandular density which is fairly symmetric. There is no interval development of dominant mass, architectural distortion, or grouped microcalcification suggestive of malignancy. 3-D tomosynthesis shows no additional findings. Assessment: BI-RADS/ACR category 1 mammogram. Negative Mammogram. Recommendation Routine screening mammogram of both breasts in 1 year (for women over age 40). This patient's Lifetime Breast Cancer Risk is estimated at 3.4 %. This mammogram was interpreted with the aid of an FDA-approved computer-aided dectection system. Electronically Signed By: Eriberto Muhammad MD 06/15/19 [id number]
== END ==
LOC: M WHC 11:06
PROVIDERS: ATTEND Nurse Practitioner Family
DX: Z12.31 Encounter for screening mammogram for malignant neoplasm of breast (principal); Z78.0 Asymptomatic menopausal state

== ENCOUNTER 2019-06-20 07:21 | Day surgery (SDC) | payer MEDICARE, MEDICAID ==
[~2019-06-20] VITALS: Ht 167.6 cm; Wt 95.3 kg
--- NOTE | 2019-06-20 09:43 | ROOR ---
Patient Name: Meghan Brown Procedure Date: 06/20/2019 8:53 AM Date of : 1955 Age: 64 Room: [facility] Gender: Female Note Status: Finalized Procedure: Total Colonoscopy to Cecum + Cold Snare Polypectomy + Hemoclips + APC Indications: High risk colon cancer surveillance: Personal history of adenoma with villous component Providers: Noé Sellers MD Referring MD: Rebecca Agrawal Requesting Provider: Medicines: Monitored Anesthesia Care Complications: No immediate complications. Procedure: Pre-Anesthesia Assessment: - The heart rate, respiratory rate, oxygen saturations, blood pressure, adequacy of pulmonary ventilation, and response to care were monitored throughout the procedure. The Colonoscope was introduced through the anus and advanced to the cecum, identified by appendiceal orifice and ileocecal valve. The colonoscopy was performed without difficulty. The patient tolerated the procedure well. The quality of the bowel preparation was excellent. Findings: The perianal and digital rectal examinations were normal. Non-bleeding internal hemorrhoids were found during retroflexion. The hemorrhoids were small and Grade I (internal hemorrhoids that do not prolapse). Multiple small and large-mouthed diverticula were found in the recto-sigmoid colon, sigmoid colon and descending colon. A large polyp was found in the ascending colon distal ascending colon. The polyp was sessile. The polyp was removed with a cold snare. Resection and retrieval were complete. Coagulation for tissue destruction using argon plasma at 0.8 liters/minute and 20 nix was successful. To prevent bleeding after the polypectomy, five hemostatic clips were successfully placed (MR conditional). There was no bleeding at the end of the procedure. The exam was otherwise without abnormality on direct and retroflexion views. Impression: - Non-bleeding internal hemorrhoids. - Diverticulosis in the recto-sigmoid colon, in the sigmoid colon and in the descending colon. - One large polyp in the ascending colon in the distal ascending colon, removed with a cold snare. Resected and retrieved. Treated with argon plasma coagulation (APC). Clips (MR conditional) were placed. - The examination was otherwise normal on direct and retroflexion views. - The exam was otherwise normal to the cecum. Recommendation: - Patient has a contact number available for emergencies. The signs and symptoms of potential delayed complications were discussed with the patient. Return to normal activities tomorrow. Written discharge instructions were provided to the patient. - High fiber diet. - Discharge patient to home. - Resume Coumadin (warfarin) at prior dose today. - Await pathology results. - Telephone GI clinic for pathology results in 1 week. - Repeat colonoscopy in 1 year for surveillance based on pathology results. - Return to referring physician. - The findings and recommendations were discussed with the patient's family. Noé Sellers MD Noé Sellers MD 06/20/2019 9:42:53 AM Electronically signed by Noé Sellers MD Number of Addenda: 0 Note Initiated On: 06/20/2019 8:53 AM Estimated Blood Loss: Estimated blood loss: none.
[2019-06-20 10:00] VITALS: BP 151/70
[2019-06-20] MEDS ORDERED: NS 1,000 ML IV ONE (14:00)
== END 2019-06-20 10:30 | disposition home or self-care (01) ==
LOC: M OPP 07:21
PROVIDERS: ATTEND Internal Medicine Gastroenterology
DX: Z86.010 Personal history of colon polyps (principal); K64.0 First degree hemorrhoids; D12.2 Benign neoplasm of ascending colon; K57.30 Diverticulosis of large intestine without perforation or abscess without bleeding; I48.91 Unspecified atrial fibrillation; I10 Essential (primary) hypertension; E11.9 Type 2 diabetes mellitus without complications; Z88.8 Allergy status to other drugs, medicaments and biological substances; Z79.01 Long term (current) use of anticoagulants; Z79.899 Other long term (current) drug therapy; Z09 Encounter for follow-up examination after completed treatment for conditions other than malignant neoplasm

== ENCOUNTER → 2019-07-19 | Outpatient (REF) | payer MEDICARE, MEDICAID ==
[~2019-07-19] MED LIST changes: +ACET-1146 PO; +CHLO125TA PO; +MELA1TAB9 PO; +METF-791 PO; +OMEP1CAP73 PO; -OMEP20CA4 PO; +OMEP40CA97 PO; +ONDA-83 PO; -ONDA4TAB5 PO
[2019-07-19 10:22] LABS: INR 2.37; PROTHROMBIN TIME 25.7 SECONDS (11.8-14.0)
== END ==
PROVIDERS: ATTEND Nurse Practitioner Family
DX: Z79.01 Long term (current) use of anticoagulants (principal)

== ENCOUNTER 2019-07-22 14:08 | Emergency (ER) | payer MEDICARE, MEDICAID ==
[~2019-07-22] VITALS: Ht 167.6 cm; Wt 70.9 kg
[~2019-07-22 14:08] MED LIST changes: -ACET-1146 PO; -CHLO125TA PO; -MELA1TAB9 PO; -METF-791 PO; -OMEP1CAP73 PO; +OMEP20CA4 PO; -OMEP40CA97 PO; -ONDA-83 PO; +ONDA4TAB5 PO
--- NOTE | 2019-07-22 14:40 | REP ---
CT BRAIN WITHOUT CONTRAST: CT brain performed without IV contrast. There is mild atrophy. There is an old left basal ganglia, internal capsule in centrum semiovale infarct which is unchanged since the prior study of 06/25/2018. There is no acute intracranial hemorrhage, midline shift or mass effect. There is some mixed vacuo dilatation of the lateral ventricle. No skull fracture is seen. There is no extra-axial fluid collection. IMPRESSION: No evidence of acute bleed or fracture. Old left-sided infarct unchanged. Electronically Signed by Larry Walls MD 07/22/2019 06:53 P
--- NOTE | 2019-07-22 14:47 | REP ---
CT CERVICAL SPINE WITHOUT CONTRAST: CT cervical spine performed in the axial plane. Sagittal and coronal reconstruction images are performed. There is no compression fracture or malalignment with normal cervical lordosis. There is no prevertebral soft tissue swelling. There is moderate spurring of C4-C7 both anteriorly and posteriorly with mild disc space narrowing and subchondral sclerosis at these levels. There is spurring and sclerosis at the posterior facet joints diffusely. No abnormal density is seen in the spinal canal. IMPRESSION: Diffuse degenerative changes. No fracture or dislocation. Electronically Signed by Larry Walls MD 07/22/2019 06:53 P
[2019-07-22] MEDS ORDERED: MELA1TAB9 PO (15:25)
[2019-07-22] MEDS ORDERED: ACET0.052 PO (15:25)
[2019-07-22] MEDS ORDERED: OMEP40CA2 PO (15:25)
[2019-07-22] MEDS ORDERED: METF-791 PO (15:25)
[2019-07-22] MEDS ORDERED: CHLO125TA PO (15:25)
[2019-07-22] MEDS ORDERED: MILKSUS3 PO (15:25)
[2019-07-22 15:41] LABS: BASO % 0.3 % (0.0-1.0); EOS # 0.1 10^3/uL (0.0-0.5); EOS % 1.5 % (0.0-3.0); HEMATOCRIT 39.4 % (36.0-47.0); HEMOGLOBIN 12.6 g/dl (12.0-15.5); LYMPH # 2.7 10^3/uL (1.5-5.0); LYMPH % 46.2 % (24.0-44.0); MEAN CORPUSCULAR VOLUME 81.2 fl (80.0-96.0); MONO # 0.5 10^3/uL (0.0-0.8); MONO % 9.2 % (0.0-5.0); NEUTROPHILS # 2.5 10^3/uL (1.5-8.5); NEUTROPHILS % 42.6 % (36.0-66.0); PLATELET COUNT, AUTOMATED 293 10^3/uL (150-450); RED BLOOD COUNT 4.85 10^6/uL (4.00-5.40); WHITE BLOOD COUNT 5.9 10^3/uL (4.0-10.0)
[2019-07-22 15:49] LABS: INR 1.99; PROTHROMBIN TIME 22.4 SECONDS (11.8-14.0)
[2019-07-22 15:50] LABS: PARTIAL THROMBOPLASTIN TIME 31.5 SECONDS (25.0-38.4)
--- NOTE | 2019-07-22 16:00 | REP ---
REASON: Pain after trauma. FINDINGS: No acute fracture or destructive osseous lesion. Electronically Signed by Lacho Kelly DO 07/22/2019 04:39 P
--- NOTE | 2019-07-22 16:01 | REP ---
Right humerus two views : There is no fracture or dislocation. Mineralization and joint spaces are normal. There are no calcifications or foreign bodies. Impression: Negative right humerus . Electronically Signed by Larry Rhoades MD 07/22/2019 03:52 P
--- NOTE | 2019-07-22 16:15 | REP ---
Left upper extremity duplex Doppler venous ultrasound. Real time compression and duplex Doppler evaluation of the left upper extremity deep venous system is performed. The left subclavian, jugular, axillary, brachial, basilic and cephalic veins are fully compressible where accessible with transducer pressure, and demonstrate no intraluminal thrombus and normal venous waveforms. There is no evidence of deep venous thrombosis. Impression: No evidence of deep venous thrombosis of the left upper extremity deep vein system. Electronically Signed by Larry Walls MD 07/22/2019 04:07 P
[2019-07-22 17:40] VITALS: BP 116/59
== END 2019-07-22 19:01 | disposition home or self-care (01) ==
LOC: EDBD 14:08 → M ED 14:08
DX: S09.90XA Unspecified injury of head, initial encounter (principal); S40.022A Contusion of left upper arm, initial encounter; W01.0XXA Fall on same level from slipping, tripping and stumbling without subsequent striking against object, initial encounter; Y92.121 Bathroom in nursing home as the place of occurrence of the external cause; E11.9 Type 2 diabetes mellitus without complications; I10 Essential (primary) hypertension; G47.00 Insomnia, unspecified; E78.9 Disorder of lipoprotein metabolism, unspecified; F33.9 Major depressive disorder, recurrent, unspecified; Z79.899 Other long term (current) drug therapy; Z79.84 Long term (current) use of oral hypoglycemic drugs; Z79.01 Long term (current) use of anticoagulants; Z88.8 Allergy status to other drugs, medicaments and biological substances; Z87.891 Personal history of nicotine dependence
CPT/HCPCS: 36415; 70450; 72125; 73060; 73090; 85025; 85610; 85730; 93971; 99284; G0463

== ENCOUNTER → 2019-07-26 | Outpatient (REF) | payer MEDICARE, MEDICAID ==
[~2019-07-26] MED LIST changes: +ACET0.052 PO; +CHLO125TA PO; +MELA1TAB9 PO; +METF-791 PO; +OMEP40CA2 PO
[2019-07-26 11:08] LABS: INR 2.49; PROTHROMBIN TIME 26.8 SECONDS (11.8-14.0)
== END ==
PROVIDERS: ATTEND Nurse Practitioner Family
DX: Z79.01 Long term (current) use of anticoagulants (principal)

== ENCOUNTER → 2019-08-16 | Outpatient (REF) | payer MEDICARE, MEDICAID ==
[2019-08-16 09:36] LABS: INR 2.02; PROTHROMBIN TIME 22.6 SECONDS (11.8-14.0)
== END ==
PROVIDERS: ATTEND Nurse Practitioner Family
DX: I48.91 Unspecified atrial fibrillation (principal)

== ENCOUNTER → 2019-08-31 | Outpatient (REF) | payer MEDICARE, MEDICAID ==
[~2019-08-31] MED LIST changes: +ACET-1146 PO; -ACET0.052 PO; -OMEP40CA2 PO; +OMEP40CA97 PO
[2019-08-31 10:13] LABS: HEMOGLOBIN A1c 8.9 %
[2019-08-31 10:23] LABS: CALCIUM LEVEL 10.3 MG/DL (8.8-10.2); CREATININE FOR GFR 1.43 MG/DL (0.55-1.30); GLOMERULAR FILTRATION RATE 39.5 (>45); POTASSIUM SERUM 3.6 MEQ/L (3.5-5.1); THYROID STIMULATING HORMONE 1.83 uIU/ML (0.358-3.740); THYROXINE (T4) 8.2 UG/DL (4.5-12.0)
== END ==
PROVIDERS: ATTEND Nurse Practitioner Family
DX: E11.9 Type 2 diabetes mellitus without complications (principal)

== ENCOUNTER → 2019-10-03 | Outpatient (REF) | payer MEDICARE, MEDICAID ==
[2019-10-03 15:50] LABS: ALBUMIN 3.9 GM/DL (3.2-5.2); BILIRUBIN,TOTAL 0.4 MG/DL (0.2-1.0); CALCIUM LEVEL 9.4 MG/DL (8.8-10.2); CREATININE FOR GFR 1.05 MG/DL (0.55-1.30); GLOMERULAR FILTRATION RATE 56.3 (>45); TOTAL PROTEIN 7.2 GM/DL (6.4-8.2)
[2019-10-03 15:58] LABS: HEMOGLOBIN A1c 8.1 %
== END ==
LOC: M SFHCPLAZ 13:41
PROVIDERS: ATTEND Nurse Practitioner Family
DX: E11.9 Type 2 diabetes mellitus without complications (principal)

== ENCOUNTER → 2019-10-12 | Outpatient (REF) | payer MEDICARE, MEDICAID ==
[~2019-10-12] MED LIST changes: +OMEP-172 PO; -OMEP20CA4 PO
== END ==
PROVIDERS: ATTEND Nurse Practitioner Family
DX: Z53.9 Procedure and treatment not carried out, unspecified reason (principal)

== ENCOUNTER → 2019-10-20 | Outpatient (REF) | payer MEDICARE, MEDICAID ==
[2019-10-20 10:04] LABS: BASO % 0.5 % (0.0-1.0); EOS # 0.1 10^3/uL (0.0-0.5); EOS % 2.2 % (0.0-3.0); HEMATOCRIT 37.3 % (36.0-47.0); HEMOGLOBIN 11.4 g/dl (12.0-15.5); LYMPH # 3.1 10^3/uL (1.5-5.0); LYMPH % 52.4 % (24.0-44.0); MEAN CORPUSCULAR HEMOGLOBIN 25.3 pg (27.0-33.0); MEAN CORPUSCULAR HGB CONC 30.6 g/dl (32.0-36.5); MEAN CORPUSCULAR VOLUME 82.9 fl (80.0-96.0); MONO # 0.6 10^3/uL (0.0-0.8); MONO % 10.1 % (0.0-5.0); NEUTROPHILS # 2.1 10^3/uL (1.5-8.5); NEUTROPHILS % 34.6 % (36.0-66.0); PLATELET COUNT, AUTOMATED 283 10^3/uL (150-450)
[2019-10-20 10:18] LABS: HEMOGLOBIN A1c 7.4 %
[2019-10-20 10:57] LABS: ALBUMIN 3.3 GM/DL (3.2-5.2); ALT/SGPT 20 U/L (12-78); BILIRUBIN,TOTAL 0.3 MG/DL (0.2-1.0); BLOOD UREA NITROGEN 19 MG/DL (7-18); CALCIUM LEVEL 8.8 MG/DL (8.8-10.2); CARBON DIOXIDE LEVEL 26 MEQ/L (21-32); CHLORIDE LEVEL 106 MEQ/L (98-107); CHOLESTEROL LEVEL 132 MG/DL (<200); CHOLESTEROL RISK RATIO 2.808 (<5); CREATININE FOR GFR 0.92 MG/DL (0.55-1.30); FERRITIN 129 NG/ML (8-252); FREE T4 0.68 NG/DL (0.76-1.46); GLOMERULAR FILTRATION RATE > 60.0 (>45); GLUCOSE, FASTING 73 MG/DL (70-100); HDL CHOLESTEROL 47 MG/DL (>40); LDL CHOLESTEROL 63 MG/DL (<100); NON-HDL-C 85 MG/DL; POTASSIUM SERUM 4.6 MEQ/L (3.5-5.1); SODIUM LEVEL 140 MEQ/L (136-145); TOTAL PROTEIN 6.3 GM/DL (6.4-8.2); TRIGLYCERIDES LEVEL 112 MG/DL (<150)
== END ==
PROVIDERS: ATTEND Nurse Practitioner Family
DX: D50.9 Iron deficiency anemia, unspecified (principal); I10 Essential (primary) hypertension; E78.5 Hyperlipidemia, unspecified; E11.9 Type 2 diabetes mellitus without complications

== ENCOUNTER → 2019-10-25 | Outpatient (REF) | payer MEDICARE, MEDICAID ==
[2019-10-27 10:23] LABS: INR 2.44; PROTHROMBIN TIME 26.3 SECONDS (11.8-14.0)
== END ==
PROVIDERS: ATTEND Nurse Practitioner Family
DX: Z51.81 Encounter for therapeutic drug level monitoring (principal); I69.359 Hemiplegia and hemiparesis following cerebral infarction affecting unspecified side; Z79.01 Long term (current) use of anticoagulants

== ENCOUNTER → 2019-10-27 | Outpatient (REF) | payer MEDICARE, MEDICAID | PROVIDERS: ATTEND Specialist | DX: Z51.81 Encounter for therapeutic drug level monitoring (principal); Z79.899 Other long term (current) drug therapy ==

== ENCOUNTER → 2019-11-24 | Outpatient (REF) | payer MEDICARE, MEDICAID ==
[~2019-11-24] MED LIST changes: -OMEP-172 PO; +OMEP1CAP73 PO; +ONDA-83 PO; -ONDA4TAB5 PO
[2019-11-24 10:14] LABS: INR 2.24; PROTHROMBIN TIME 24.6 SECONDS (11.8-14.0)
== END ==
PROVIDERS: ATTEND Nurse Practitioner Family
DX: Z51.81 Encounter for therapeutic drug level monitoring (principal)

== ENCOUNTER → 2019-12-22 | Outpatient (REF) | payer MEDICARE, MEDICAID ==
[2019-12-22 10:01] LABS: INR 2.34; PROTHROMBIN TIME 25.5 SECONDS (11.8-14.0)
== END ==
PROVIDERS: ATTEND Nurse Practitioner Family
DX: Z51.81 Encounter for therapeutic drug level monitoring (principal); Z79.01 Long term (current) use of anticoagulants

== ENCOUNTER → 2020-01-20 | Outpatient (REF) | payer MEDICARE, MEDICAID ==
[2020-01-20 10:10] LABS: INR 2.4
== END ==
PROVIDERS: ATTEND Nurse Practitioner Family
DX: I69.351 Hemiplegia and hemiparesis following cerebral infarction affecting right dominant side (principal); Z79.01 Long term (current) use of anticoagulants

== ENCOUNTER → 2020-02-17 | Outpatient (REF) | payer MEDICARE, MEDICAID ==
[2020-02-17 12:33] LABS: INR 2.83; PROTHROMBIN TIME 29.7 SECONDS (11.8-14.0)
== END ==
PROVIDERS: ATTEND Physician Assistant Medical
DX: Z51.81 Encounter for therapeutic drug level monitoring (principal); Z79.01 Long term (current) use of anticoagulants

== ENCOUNTER → 2020-02-29 | Outpatient (REF) | payer MEDICARE, MEDICAID ==
[2020-02-29 09:51] LABS: BASO % 0.5 % (0.0-1.0); EOS # 0.2 10^3/uL (0.0-0.5); EOS % 2.8 % (0.0-3.0); HEMATOCRIT 33.8 % (36.0-47.0); HEMOGLOBIN 10.6 g/dl (12.0-15.5); LYMPH % 48.3 % (24.0-44.0); MEAN CORPUSCULAR HEMOGLOBIN 25.8 pg (27.0-33.0); MEAN CORPUSCULAR HGB CONC 31.4 g/dl (32.0-36.5); MEAN CORPUSCULAR VOLUME 82.2 fl (80.0-96.0); MONO # 0.6 10^3/uL (0.0-0.8); MONO % 10.5 % (0.0-5.0); NEUTROPHILS # 2.3 10^3/uL (1.5-8.5); NEUTROPHILS % 37.6 % (36.0-66.0); PLATELET COUNT, AUTOMATED 299 10^3/uL (150-450); RED BLOOD COUNT 4.11 10^6/uL (4.00-5.40); WHITE BLOOD COUNT 6.1 10^3/uL (4.0-10.0)
== END ==
PROVIDERS: ATTEND Physician Assistant Medical
DX: I10 Essential (primary) hypertension (principal)

== ENCOUNTER → 2020-03-19 | Outpatient (REF) | payer MEDICARE, MEDICAID ==
[~2020-03-19] MED LIST changes: -MAPA325T2 PO; +MAPA325T8 PO; -METF-791 PO; +METF-838 PO
[2020-03-19 12:42] LABS: BASO % 0.4 % (0.0-1.0); EOS # 0.1 10^3/uL (0.0-0.5); EOS % 3.1 % (0.0-3.0); HEMATOCRIT 35.9 % (36.0-47.0); HEMOGLOBIN 11.1 g/dl (12.0-15.5); LYMPH # 2.3 10^3/uL (1.5-5.0); LYMPH % 50.1 % (24.0-44.0); MEAN CORPUSCULAR HEMOGLOBIN 25.6 pg (27.0-33.0); MEAN CORPUSCULAR HGB CONC 30.9 g/dl (32.0-36.5); MEAN CORPUSCULAR VOLUME 82.7 fl (80.0-96.0); MONO # 0.4 10^3/uL (0.0-0.8); MONO % 9.3 % (0.0-5.0); NEUTROPHILS # 1.7 10^3/uL (1.5-8.5); NEUTROPHILS % 36.9 % (36.0-66.0); PLATELET COUNT, AUTOMATED 297 10^3/uL (150-450); RED BLOOD COUNT 4.34 10^6/uL (4.00-5.40); WHITE BLOOD COUNT 4.5 10^3/uL (4.0-10.0)
[2020-03-19 12:54] LABS: INR 2.54; PROTHROMBIN TIME 27.2 SECONDS (11.8-14.0)
[2020-03-19 13:18] LABS: ALBUMIN 3.4 GM/DL (3.2-5.2); BILIRUBIN,TOTAL 0.2 MG/DL (0.2-1.0); CALCIUM LEVEL 8.6 MG/DL (8.8-10.2); CHOLESTEROL RISK RATIO 2.666 (<5); CREATININE FOR GFR 1.09 MG/DL (0.55-1.30); FREE T4 0.74 NG/DL (0.76-1.46); POTASSIUM SERUM 3.8 MEQ/L (3.5-5.1); THYROID STIMULATING HORMONE 0.852 uIU/ML (0.358-3.740); TOTAL PROTEIN 6.6 GM/DL (6.4-8.2)
[2020-03-19 13:34] LABS: HEMOGLOBIN A1c 4.3 %
== END ==
PROVIDERS: ATTEND Physician Assistant Medical
DX: Z51.81 Encounter for therapeutic drug level monitoring (principal); Z79.899 Other long term (current) drug therapy

== ENCOUNTER → 2020-04-03 | Outpatient (REF) | payer MEDICARE, MEDICAID ==
[~2020-04-03] MED LIST changes: -COUM1TAB14 PO; +COUM4TAB8 PO; -COUM6TAB PO; +COUM6TAB10 PO; +FAMO20TA PO; +GLIM2TAB4 PO
[2020-04-03 14:44] LABS: BASO % 0.3 % (0.0-1.0); EOS # 0.2 10^3/uL (0.0-0.5); EOS % 2.6 % (0.0-3.0); HEMATOCRIT 38.5 % (36.0-47.0); LYMPH # 3.3 10^3/uL (1.5-5.0); LYMPH % 43.4 % (24.0-44.0); MEAN CORPUSCULAR HEMOGLOBIN 25.9 pg (27.0-33.0); MEAN CORPUSCULAR HGB CONC 31.2 g/dl (32.0-36.5); MONO # 0.8 10^3/uL (0.0-0.8); MONO % 10.4 % (0.0-5.0); NEUTROPHILS # 3.3 10^3/uL (1.5-8.5); PLATELET COUNT, AUTOMATED 353 10^3/uL (150-450); RED BLOOD COUNT 4.64 10^6/uL (4.00-5.40); WHITE BLOOD COUNT 7.7 10^3/uL (4.0-10.0)
[2020-04-03 14:54] LABS: INR 2.45; PROTHROMBIN TIME 26.4 SECONDS (11.8-14.0)
[2020-04-03 14:55] LABS: PARTIAL THROMBOPLASTIN TIME 37.4 SECONDS (25.0-38.4)
[2020-04-03 14:59] LABS: HEMOGLOBIN A1c 4.8 %
[2020-04-03 15:07] LABS: ALBUMIN 3.9 GM/DL (3.2-5.2); BILIRUBIN,TOTAL 0.2 MG/DL (0.2-1.0); CALCIUM LEVEL 8.9 MG/DL (8.8-10.2); CREATININE FOR GFR 1.39 MG/DL (0.55-1.30); GLOMERULAR FILTRATION RATE 40.8 (>45); POTASSIUM SERUM 4.1 MEQ/L (3.5-5.1); TOTAL PROTEIN 7.5 GM/DL (6.4-8.2)
== END ==
LOC: M SFHCPLAZ 12:34
PROVIDERS: ATTEND Family Medicine
DX: D50.9 Iron deficiency anemia, unspecified (principal); N18.3 Chronic kidney disease, stage 3 (moderate); E11.9 Type 2 diabetes mellitus without complications; I48.0 Paroxysmal atrial fibrillation
CPT/HCPCS: 36415; 80053; 82728; 83036; 85025; 85046; 85610; 85730; G0463

== ENCOUNTER → 2020-04-07 | Outpatient (CLI) | payer MEDICARE, MEDICAID | LOC: M LABSMTC 08:47 | PROVIDERS: ATTEND Anesthesiology | DX: Z01.818 Encounter for other preprocedural examination (principal); Z11.59 Encounter for screening for other viral diseases | CPT/HCPCS: C9803; U0003 ==

== ENCOUNTER 2020-04-10 12:21 | Day surgery (SDC) | payer MEDICARE, MEDICAID ==
[~2020-04-10] VITALS: Ht 167.6 cm; Wt 88.5 kg
[~2020-04-10 12:21] MED LIST changes: +NS 1,000 ML IV ONE
[2020-04-10] MEDS ORDERED: propofoL 200 MG/20 ML VIAL As Ordered ONE ×2 (13:11→13:53)
[2020-04-10] MEDS ORDERED: LIDOCAINE 2% 100MG/5ML SDV (FOR ANES.) As Ordered ONE (13:11)
--- NOTE | 2020-04-10 14:14 | ROOR ---
Patient Name: Meghan Brown Procedure Date: 04/10/2020 1:24 PM Date of : 1955 Age: 64 Room: [facility] Gender: Female Note Status: Finalized Procedure: Total Colonoscopy to Cecum + Cold Snare Polypectomy Indications: High risk colon cancer surveillance: Personal history of adenoma with villous component Providers: Noé Sellers MD Referring MD: Rebecca Agrawal Requesting Provider: Medicines: Monitored Anesthesia Care Complications: No immediate complications. Procedure: Pre-Anesthesia Assessment: - The heart rate, respiratory rate, oxygen saturations, blood pressure, adequacy of pulmonary ventilation, and response to care were monitored throughout the procedure. The Colonoscope was introduced through the anus and advanced to the cecum, identified by appendiceal orifice and ileocecal valve. The colonoscopy was performed without difficulty. The patient tolerated the procedure well. The quality of the bowel preparation was excellent. Findings: The perianal and digital rectal examinations were normal. Non-bleeding internal hemorrhoids were found during retroflexion. The hemorrhoids were small and Grade I (internal hemorrhoids that do not prolapse). Multiple small-mouthed diverticula were found in the recto-sigmoid colon, sigmoid colon and descending colon. A large polyp was found in the proximal ascending colon. The polyp was carpet-like. The polyp was removed with a cold snare. Polyp resection was incomplete. The resected tissue was retrieved. The exam was otherwise without abnormality on direct and retroflexion views. Impression: - Non-bleeding internal hemorrhoids. - Diverticulosis in the recto-sigmoid colon, in the sigmoid colon and in the descending colon. - One large polyp in the proximal ascending colon, removed with a cold snare. Incomplete resection. Resected tissue retrieved. - The examination was otherwise normal on direct and retroflexion views. - The exam was otherwise normal to the cecum. Recommendation: - Patient has a contact number available for emergencies. The signs and symptoms of potential delayed complications were discussed with the patient. Return to normal activities tomorrow. Written discharge instructions were provided to the patient. - High fiber diet. - Discharge patient to home. - Continue present medications. - Await pathology results. - Telephone GI clinic for pathology results in 1 week. - Repeat colonoscopy in 3 months for surveillance based on pathology results. - Resume Coumadin (warfarin) at prior dose tomorrow. - Telephone GI clinic for pathology results in 1 week. Noé Sellers MD Noé Sellers MD 04/10/2020 2:13:53 PM Electronically signed by Noé Sellers MD Number of Addenda: 0 Note Initiated On: 04/10/2020 1:24 PM Estimated Blood Loss: Estimated blood loss: none.
[2020-04-10 15:03] VITALS: BP 117/72
== END 2020-04-10 15:05 | disposition home or self-care (01) ==
LOC: M OPP 12:21
PROVIDERS: ATTEND Internal Medicine Gastroenterology
DX: D12.2 Benign neoplasm of ascending colon (principal); K57.30 Diverticulosis of large intestine without perforation or abscess without bleeding; K64.0 First degree hemorrhoids; Z86.010 Personal history of colon polyps; D64.9 Anemia, unspecified; E11.9 Type 2 diabetes mellitus without complications; J44.9 Chronic obstructive pulmonary disease, unspecified; I48.91 Unspecified atrial fibrillation; Z79.01 Long term (current) use of anticoagulants; Z79.84 Long term (current) use of oral hypoglycemic drugs; Z79.899 Other long term (current) drug therapy; Z88.8 Allergy status to other drugs, medicaments and biological substances; Z91.040 Latex allergy status

== ENCOUNTER → 2020-04-23 | Outpatient (REF) | payer MEDICARE, MEDICAID ==
[~2020-04-23] MED LIST changes: -NS 1,000 ML IV ONE
[2020-04-23 11:13] LABS: INR 1.72; PROTHROMBIN TIME 19.9 SECONDS (11.8-14.0)
== END ==
PROVIDERS: ATTEND Physician Assistant Medical
DX: Z51.81 Encounter for therapeutic drug level monitoring (principal)

== ENCOUNTER → 2020-04-30 | Outpatient (REF) | payer MEDICARE, MEDICAID ==
[2020-04-30 11:08] LABS: INR 2.36; PROTHROMBIN TIME 25.6 SECONDS (11.8-14.0)
== END ==
PROVIDERS: ATTEND Physician Assistant Medical
DX: Z79.01 Long term (current) use of anticoagulants (principal)

== ENCOUNTER → 2020-05-28 | Outpatient (REF) | payer MEDICARE, MEDICAID ==
[~2020-05-28] MED LIST changes: +AMLO1TAB24 PO; -AMLO5TAB6 PO; +CALC-212 PO; -CALC600T7 PO; -MELA5TAB31 PO; +MELA5TAB36 PO; +METF-839 PO; +TRIA1CR80 TOP
[2020-06-22 20:44] LABS: INR 2.21
== END ==
LOC: M SFHCPLAZ 10:57
PROVIDERS: ATTEND Physician Assistant Medical
DX: Z79.01 Long term (current) use of anticoagulants (principal)

== ENCOUNTER → 2020-06-14 | Outpatient (REF) | payer MEDICARE, MEDICAID ==
[2020-08-25 10:34] LABS: INR 1.8; PROTHROMBIN TIME 21.3 SECONDS (12.5-14.3)
[2020-08-25 10:38] LABS: BASO % 0.3 % (0.0-1.0); EOS # 0.2 10^3/uL (0.0-0.5); EOS % 3.8 % (0.0-3.0); HEMATOCRIT 32.6 % (36.0-47.0); HEMOGLOBIN 10.2 g/dl (12.0-15.5); LYMPH # 2.7 10^3/uL (1.5-5.0); LYMPH % 46.3 % (24.0-44.0); MEAN CORPUSCULAR HEMOGLOBIN 25.5 pg (27.0-33.0); MEAN CORPUSCULAR HGB CONC 31.3 g/dl (32.0-36.5); MEAN CORPUSCULAR VOLUME 81.5 fl (80.0-96.0); MONO # 0.7 10^3/uL (0.0-0.8); MONO % 12.1 % (0.0-5.0); NEUTROPHILS # 2.2 10^3/uL (1.5-8.5); NEUTROPHILS % 37.5 % (36.0-66.0); PLATELET COUNT, AUTOMATED 275 10^3/uL (150-450); WHITE BLOOD COUNT 5.9 10^3/uL (4.0-10.0)
[2020-09-08 12:10] LABS: ALBUMIN 3.3 GM/DL (3.2-5.2); BILIRUBIN,TOTAL 0.3 MG/DL (0.2-1.0); CALCIUM LEVEL 8.9 MG/DL (8.8-10.2); CREATININE FOR GFR 1.2 MG/DL (0.55-1.30); GLOMERULAR FILTRATION RATE 48.1 (>45); POTASSIUM SERUM 3.8 MEQ/L (3.5-5.1); TOTAL PROTEIN 6.4 GM/DL (6.4-8.2)
== END ==
PROVIDERS: ATTEND Physician Assistant Medical
DX: Z79.01 Long term (current) use of anticoagulants (principal); E11.9 Type 2 diabetes mellitus without complications; I10 Essential (primary) hypertension

== ENCOUNTER → 2020-06-19 | Outpatient (REF) | payer MEDICARE, MEDICAID ==
[2020-08-08 19:07] LABS: INR 2.12; PROTHROMBIN TIME 24.2 SECONDS (12.5-14.3)
== END ==
PROVIDERS: ATTEND Family Medicine
DX: Z79.01 Long term (current) use of anticoagulants (principal)

== ENCOUNTER → 2020-06-28 | Outpatient (REF) | payer MEDICARE, MEDICAID ==
[2020-06-28 11:29] LABS: INR 2.37; PROTHROMBIN TIME 26.4 SECONDS (11.8-14.0)
== END ==
PROVIDERS: ATTEND Physician Assistant Medical
DX: Z79.01 Long term (current) use of anticoagulants (principal)

== ENCOUNTER → 2020-07-18 | Outpatient (REF) | payer MEDICARE, MEDICAID ==
[2020-07-18 11:26] LABS: INR 2.51; PROTHROMBIN TIME 27.7 SECONDS (11.8-14.0)
== END ==
PROVIDERS: ATTEND Physician Assistant Medical
DX: I48.91 Unspecified atrial fibrillation (principal)

== ENCOUNTER → 2020-08-15 | Outpatient (REF) | payer MEDICARE, MEDICAID ==
[2020-08-15 10:56] LABS: INR 2.31; PROTHROMBIN TIME 25.9 SECONDS (12.5-14.3)
== END ==
PROVIDERS: ATTEND Physician Assistant Medical
DX: I48.91 Unspecified atrial fibrillation (principal)

== ENCOUNTER 2020-08-17 07:05 | Emergency (ER) | payer MEDICARE, MEDICAID ==
[~2020-08-17] VITALS: Ht 167.6 cm; Wt 92.5 kg
[~2020-08-17 07:05] MED LIST changes: -METF-839 PO; -TRIA1CR80 TOP
[2020-08-17] MEDS ORDERED: NS 1,000 ML IV ONE (07:30)
[2020-08-17] MEDS ORDERED: ISOVUE-370 76% 100ML VIAL As Ordered ONE (07:45)
[2020-08-17 07:57] LABS: BASO % 0.3 % (0.0-1.0); EOS # 0.2 10^3/uL (0.0-0.5); EOS % 3.6 % (0.0-3.0); HEMATOCRIT 41.3 % (36.0-47.0); HEMOGLOBIN 13.1 g/dl (12.0-15.5); LYMPH # 2.2 10^3/uL (1.5-5.0); LYMPH % 32.6 % (24.0-44.0); MEAN CORPUSCULAR HEMOGLOBIN 25.4 pg (27.0-33.0); MEAN CORPUSCULAR HGB CONC 31.7 g/dl (32.0-36.5); MEAN CORPUSCULAR VOLUME 80.2 fl (80.0-96.0); MONO # 0.5 10^3/uL (0.0-0.8); NEUTROPHILS # 3.7 10^3/uL (1.5-8.5); NEUTROPHILS % 55.3 % (36.0-66.0); PLATELET COUNT, AUTOMATED 324 10^3/uL (150-450); RED BLOOD COUNT 5.15 10^6/uL (4.00-5.40); WHITE BLOOD COUNT 6.6 10^3/uL (4.0-10.0)
[2020-08-17] MEDS ORDERED: TRIA1CR80 TOP (08:10)
[2020-08-17] MEDS ORDERED: METF-839 PO (08:10)
[2020-08-17 08:14] LABS: ALBUMIN 3.9 GM/DL (3.2-5.2); ALT/SGPT 32 U/L (12-78); BILIRUBIN,DIRECT 0.1 MG/DL (0.0-0.2); BILIRUBIN,TOTAL 0.2 MG/DL (0.2-1.0); CK-MB VALUE MASS < 1.0 NG/ML (<3.6); CPK CREATINE PHOSPHOKINASE 127 U/L (26-192); LIPASE 262 U/L (73-393); MB/CK RELATIVE INDEX 0.79 (< OR =4); TOTAL PROTEIN 7.3 GM/DL (6.4-8.2); TROPONIN I < 0.02 NG/ML (< 0.10)
[2020-08-17] MEDS ORDERED: HumuLIN R (REGULAR) INSULIN (NovoLIN R) **100U/ML** PER UNIT IV ONE (09:15)
--- NOTE | 2020-08-17 09:20 | REPVR ---
PROCEDURE INFORMATION: Exam: CT Abdomen And Pelvis With Contrast Exam date and time: 08/17/2020 8:37 AM Age: 65 years old Clinical indication: Abdominal pain; Generalized TECHNIQUE: Imaging protocol: Computed tomography of the abdomen and pelvis with intravenous contrast. Coronal and sagittal reformats were created and reviewed. Radiation optimization: All CT scans at this facility use at least one of these dose optimization techniques: automated exposure control; mA and/or kV adjustment per patient size (includes targeted exams where dose is matched to clinical indication); or iterative reconstruction. Contrast material: ISOVUE 370; Contrast volume: 100 ml; Contrast route: INTRAVENOUS (IV); COMPARISON: CT ABD PELVIS WITH CONTRAST 07/24/2016 4:34 PM FINDINGS: Lungs: The visualized lung bases are unremarkable. Liver: The hepatic parenchyma is relatively diffusely hypoattenuating compared to the splenic parenchyma and while nonspecific, given the phase of intravenous contrast, hepatic steatosis is a possibility. Gallbladder and bile ducts: The gallbladder is contracted. No intrahepatic or extrahepatic bile duct dilation. Pancreas: Pancreas is unremarkable. Spleen: Spleen is unremarkable. Adrenals: Adrenal glands are unremarkable. Kidneys and ureters: Chronic focal atrophy of the left kidney lower pole anteriorly is redemonstrated. No hydronephrosis. No nephrolithiasis. Left kidney subcentimeter round hypoattenuating lesion is too small to characterize, probably a cyst. No ureteral calculus or abnormal dilation. Stomach and bowel: The stomach is decompressed; this limits evaluation of its wall thickness. Colonic diverticula are present without evidence of acute diverticulitis. Terminal ileal diverticula. No evidence of small bowel inflammation or obstruction. Appendix: The appendix is visualized and has a normal appearance. Intraperitoneal space: No free intraperitoneal fluid. No pneumoperitoneum. Vasculature: Vascular calcifications are noted within the anatomic pelvis. Atherosclerosis. No abdominal aortic aneurysm. Lymph nodes: No enlarged lymph nodes. Urinary bladder: Urinary bladder is unremarkable. Reproductive: The uterus and adenexa are unremarkable. Bones/joints: Multilevel degenerative spine disease. Bilateral hip osteoarthritis. Soft tissues: Unremarkable. IMPRESSION: 1. Bowel diverticulosis without evidence of acute diverticulitis. 2. Possible hepatic steatosis. Electronically signed by: Tyler Palacio On 08/17/2020 09:19:57 AM
[2020-08-17 09:53] LABS: INR 2.43
[2020-08-17] MEDS ORDERED: GLIM2TAB4 PO (13:22)
[2020-08-17] MEDS ORDERED: GLIMEPIRIDE 2 MG TAB PO STA (14:20)
[2020-08-17 15:15] VITALS: BP 153/80
--- NOTE | 2020-08-18 07:37 | ECGEPIP ---
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
== END 2020-08-17 15:41 | disposition home or self-care (01) ==
LOC: M ED 07:05
DX: E11.65 Type 2 diabetes mellitus with hyperglycemia (principal); R10.9 Unspecified abdominal pain; K57.30 Diverticulosis of large intestine without perforation or abscess without bleeding; I48.91 Unspecified atrial fibrillation; I10 Essential (primary) hypertension; E78.5 Hyperlipidemia, unspecified; M32.9 Systemic lupus erythematosus, unspecified; Z79.01 Long term (current) use of anticoagulants; Z79.84 Long term (current) use of oral hypoglycemic drugs; Z79.899 Other long term (current) drug therapy
CPT/HCPCS: 36415; 74177; 80047; 80076; 82550; 82553; 83605; 83690; 84484; 85025; 85610; 93005; 93041; 96361; 96374; 99285; Q9967

== ENCOUNTER → 2020-08-20 | Outpatient (REF) | payer MEDICARE, MEDICAID ==
[~2020-08-20] MED LIST changes: +METF-839 PO; +TRIA1CR80 TOP
[2020-08-20 13:42] LABS: ALBUMIN 3.6 GM/DL (3.2-5.2); BILIRUBIN,TOTAL 0.3 MG/DL (0.2-1.0); CALCIUM LEVEL 9.5 MG/DL (8.8-10.2); CREATININE FOR GFR 1.45 MG/DL (0.55-1.30); GLOMERULAR FILTRATION RATE 38.7 (>45); POTASSIUM SERUM 3.9 MEQ/L (3.5-5.1); TOTAL PROTEIN 6.9 GM/DL (6.4-8.2)
[2020-08-20 13:52] LABS: HEMOGLOBIN A1c 7.8 %
== END ==
PROVIDERS: ATTEND Nurse Practitioner Family
DX: R19.7 Diarrhea, unspecified (principal); E11.9 Type 2 diabetes mellitus without complications

== ENCOUNTER → 2020-09-04 | Outpatient (CLI) | payer MEDICARE, MEDICAID ==
--- NOTE | 2020-09-04 10:09 | REP ---
INDICATION: CKD. COMPARISON: Cortical atrophy the anterior cortex thinning right is is in alex the evidence little plaque since. FINDINGS: Scanning at the level of the urinary bladder shows no abnormality. There is a small bladder diverticulum seen. Renal cortical echogenicity pattern is normal bilaterally and contours are smooth. There is no evidence of hydronephrosis, cyst, mass, or calculus in either kidney. The right kidney measures 10.7 x 5.3 x 4.0 cm. Left renal dimensions are 10.0 x 5.1 x 4.9 cm. Renal artery Doppler sonography: Peak systolic flow velocity in the abdominal aorta at the level of the main renal arteries is recorded at 61.5 centimeters/second. This is normal. Peak systolic flow velocity in the left main renal artery is 102.5 centimeters/second and that in the right 127.7 centimeters/second. Renal to aortic flow velocity ratios are therefore normal measured at 2.1 on the right and 1.7 on the left. Resistive indices and acceleration times are measured in the intralobar arteries of the upper, mid, and lower pole of each kidney in these values are normal bilaterally. IMPRESSION: Normal urinary tract sonography. There is no evidence of renal artery stenosis. A small bladder diverticulum is noted incidentally. <Electronically signed by Eriberto Muhammad > 09/04/20 [id number]
== END ==
LOC: M RAD 07:56
PROVIDERS: ATTEND Nurse Practitioner Family
DX: N18.30 Chronic kidney disease, stage 3 unspecified (principal); N32.3 Diverticulum of bladder

== ENCOUNTER → 2020-09-11 | Outpatient (REF) | payer MEDICARE, MEDICAID ==
[2020-09-11 10:44] LABS: BASO % 0.7 % (0.0-1.0); EOS # 0.4 10^3/uL (0.0-0.5); EOS % 6.6 % (0.0-3.0); HEMATOCRIT 35.5 % (36.0-47.0); HEMOGLOBIN 11.1 g/dl (12.0-15.5); LYMPH # 2.6 10^3/uL (1.5-5.0); LYMPH % 46.9 % (24.0-44.0); MEAN CORPUSCULAR HEMOGLOBIN 25.2 pg (27.0-33.0); MEAN CORPUSCULAR HGB CONC 31.3 g/dl (32.0-36.5); MEAN CORPUSCULAR VOLUME 80.5 fl (80.0-96.0); MONO # 0.5 10^3/uL (0.0-0.8); MONO % 9.3 % (0.0-5.0); NEUTROPHILS % 36.3 % (36.0-66.0); PLATELET COUNT, AUTOMATED 245 10^3/uL (150-450); RED BLOOD COUNT 4.41 10^6/uL (4.00-5.40); WHITE BLOOD COUNT 5.5 10^3/uL (4.0-10.0)
[2020-09-11 10:52] LABS: INR 1.86; PROTHROMBIN TIME 21.8 SECONDS (12.5-14.3)
[2020-09-11 11:03] LABS: HEMOGLOBIN A1c 8.4 %
[2020-09-11 11:20] LABS: BLOOD UREA NITROGEN 16 MG/DL (7-18); CARBON DIOXIDE LEVEL 26 MEQ/L (21-32); CHLORIDE LEVEL 105 MEQ/L (98-107); CREATININE FOR GFR 0.98 MG/DL (0.55-1.30); GLOMERULAR FILTRATION RATE > 60.0 (>45); GLUCOSE, FASTING 326 MG/DL (70-100); POTASSIUM SERUM 4.2 MEQ/L (3.5-5.1); SODIUM LEVEL 139 MEQ/L (136-145)
[2020-09-11 11:21] LABS: ALBUMIN 3.1 GM/DL (3.2-5.2); ALT/SGPT 20 U/L (12-78); BILIRUBIN,TOTAL 0.3 MG/DL (0.2-1.0); CALCIUM LEVEL 8.6 MG/DL (8.8-10.2); CHOLESTEROL LEVEL 131 MG/DL (<200); CHOLESTEROL RISK RATIO 2.673 (<5); FREE T4 0.93 NG/DL (0.76-1.46); HDL CHOLESTEROL 49 MG/DL (>40); LDL CHOLESTEROL 66 MG/DL (<100); NON-HDL-C 82 MG/DL; TOTAL PROTEIN 5.7 GM/DL (6.4-8.2); TRIGLYCERIDES LEVEL 81 MG/DL (<150)
== END ==
PROVIDERS: ATTEND Nurse Practitioner Family
DX: E78.5 Hyperlipidemia, unspecified (principal); E11.9 Type 2 diabetes mellitus without complications; I10 Essential (primary) hypertension; D50.9 Iron deficiency anemia, unspecified; Z79.01 Long term (current) use of anticoagulants

== ENCOUNTER → 2020-09-18 | Outpatient (CLI) | payer MEDICARE, MEDICAID ==
--- NOTE | 2020-09-18 16:22 | REPMRS ---
Patient History The patient states she has not had a clinical breast exam in over a year. No known family history of cancer. No Hormone Replacement Therapy 3D TOMOSYNTHESIS WAS PERFORMED. The Sean Zamarripa lifetime risk for breast cancer is 3.3%. Volpara breast density c. Digital Woman Screen Mammo: September 18, 2020 - Exam #: [id number] Bilateral CC and MLO view(s) were taken. Technologist: Astrid Darby, Technologist Prior study comparison: June 15, 2019, bilateral digital woman screen mammo performed at [facility]. May 15, 2016, bilateral digital mammo screening bilat, performed at [facility]. FINDINGS: The breast tissue is heterogeneously dense. This may lower the sensitivity of mammography. There has been no change in the appearance of the mammogram from the prior studies. There is a moderate amount of residual fibroglandular tissue which is fairly symmetric. There is no interval development of dominant mass, areas of architectural distortion, or clustered microcalcification typical of malignancy. Assessment: BI-RADS/ACR category 1 mammogram. Negative Mammogram. Recommendation Routine screening mammogram in 1 year (for women over age 40). This mammogram was interpreted with the aid of an FDA-approved computer-aided dectection system. Electronically Signed By: Larry Walls MD 09/18/20 [id number]
== END ==
LOC: M WHC 12:36
PROVIDERS: ATTEND Nurse Practitioner Family
DX: Z12.31 Encounter for screening mammogram for malignant neoplasm of breast (principal)

== ENCOUNTER → 2020-09-26 | Outpatient (REF) | payer MEDICARE, MEDICAID ==
[2020-09-26 10:52] LABS: INR 2.1
== END ==
PROVIDERS: ATTEND Nurse Practitioner Family
DX: Z79.01 Long term (current) use of anticoagulants (principal)

== ENCOUNTER → 2020-10-17 | Outpatient (REF) | payer MEDICARE, MEDICAID | PROVIDERS: ATTEND Internal Medicine | DX: Z20.828 Contact with and (suspected) exposure to other viral communicable diseases (principal) ==

== ENCOUNTER → 2020-10-19 | Outpatient (REF) | payer MEDICARE, MEDICAID ==
[2020-10-19 15:10] LABS: INR 2.76; PROTHROMBIN TIME 29.8 SECONDS (12.5-14.3)
== END ==
PROVIDERS: ATTEND Nurse Practitioner Family
DX: Z51.81 Encounter for therapeutic drug level monitoring (principal); Z79.899 Other long term (current) drug therapy

== ENCOUNTER → 2020-10-22 | Outpatient (REF) | payer MEDICARE, MEDICAID | PROVIDERS: ATTEND Internal Medicine | DX: Z20.828 Contact with and (suspected) exposure to other viral communicable diseases (principal) ==

== ENCOUNTER → 2020-10-24 | Outpatient (REF) | payer MEDICARE, MEDICAID ==
[2020-10-24 11:16] LABS: INR 3.14
== END ==
PROVIDERS: ATTEND Nurse Practitioner Family
DX: Z51.81 Encounter for therapeutic drug level monitoring (principal); Z79.899 Other long term (current) drug therapy

== ENCOUNTER → 2020-10-29 | Outpatient (REF) | payer MEDICARE, MEDICAID | PROVIDERS: ATTEND Internal Medicine | DX: Z20.828 Contact with and (suspected) exposure to other viral communicable diseases (principal) ==

== ENCOUNTER → 2020-11-05 | Outpatient (REF) | payer MEDICARE, MEDICAID | PROVIDERS: ATTEND Internal Medicine | DX: Z11.52 Encounter for screening for COVID-19 (principal) ==

== ENCOUNTER → 2020-11-07 | Outpatient (CLI) | payer MEDICARE, MEDICAID ==
[~2020-11-07] MED LIST changes: +GABA-282 PO; -GABA-843 PO; +HYDR-3490 PO; -HYDR25TAB PO; +LISI10TA22 PO; -LISI10TA4 PO; -MELA2.5C3 PO; +MELA2.5C4 PO
--- NOTE | 2020-11-07 14:06 | REPPI ---
INDICATION: SHORTNESS OF BREATH COMPARISON: 06/25/2018 TECHNIQUE: PA and lateral. FINDINGS: The mediastinum and cardiac silhouette are normal. The lung figueroa are clear and without acute consolidation, effusion, or pneumothorax. The skeletal structures are intact and normal. IMPRESSION: No acute cardiopulmonary process. <Electronically signed by Bernabe Chery > 11/07/20 [id number]
[2020-11-07 15:26] LABS: BASO % 0.5 % (0.0-1.0); EOS # 0.5 10^3/uL (0.0-0.5); EOS % 6.1 % (0.0-3.0); HEMATOCRIT 40.7 % (36.0-47.0); HEMOGLOBIN 12.4 g/dl (12.0-15.5); LYMPH % 41.1 % (24.0-44.0); MEAN CORPUSCULAR HEMOGLOBIN 25.8 pg (27.0-33.0); MEAN CORPUSCULAR HGB CONC 30.5 g/dl (32.0-36.5); MEAN CORPUSCULAR VOLUME 84.6 fl (80.0-96.0); MONO # 0.6 10^3/uL (0.0-0.8); MONO % 8.7 % (0.0-5.0); NEUTROPHILS # 3.2 10^3/uL (1.5-8.5); NEUTROPHILS % 43.3 % (36.0-66.0); PLATELET COUNT, AUTOMATED 310 10^3/uL (150-450); RED BLOOD COUNT 4.81 10^6/uL (4.00-5.40); WHITE BLOOD COUNT 7.4 10^3/uL (4.0-10.0)
[2020-11-07 15:42] LABS: INR 4.07; PROTHROMBIN TIME 40.5 SECONDS (12.5-14.3)
== END ==
LOC: M PLAIMG 13:28
PROVIDERS: ATTEND Nurse Practitioner Family
DX: R06.02 Shortness of breath (principal); Z79.01 Long term (current) use of anticoagulants

== ENCOUNTER → 2020-11-09 | Outpatient (REF) | payer MEDICARE, MEDICAID ==
[~2020-11-09] MED LIST changes: -HYDR-3490 PO; +HYDR25TAB PO; -LISI10TA22 PO; +LISI10TA4 PO
[2020-11-09 09:54] LABS: INR 2.83; PROTHROMBIN TIME 30.4 SECONDS (12.5-14.3)
== END ==
PROVIDERS: ATTEND Nurse Practitioner Family
DX: Z79.01 Long term (current) use of anticoagulants (principal)

== ENCOUNTER → 2020-11-12 | Outpatient (REF) | payer MEDICARE, MEDICAID | PROVIDERS: ATTEND Internal Medicine | DX: Z20.822 Contact with and (suspected) exposure to COVID-19 (principal) ==

== ENCOUNTER → 2020-11-16 | Outpatient (CLI) | payer MEDICARE, MEDICAID | LOC: M LABSMTC 09:30 | PROVIDERS: ATTEND Anesthesiology | DX: Z01.812 Encounter for preprocedural laboratory examination (principal); Z20.822 Contact with and (suspected) exposure to COVID-19 ==

== ENCOUNTER → 2020-11-19 | Outpatient (REF) | payer MEDICARE, MEDICAID ==
[2020-11-19 12:14] LABS: INR 3.17; PROTHROMBIN TIME 33.3 SECONDS (12.5-14.3)
== END ==
PROVIDERS: ATTEND Nurse Practitioner Family
DX: Z79.01 Long term (current) use of anticoagulants (principal)

== ENCOUNTER → 2020-11-19 | Outpatient (REF) | payer MEDICARE, MEDICAID | PROVIDERS: ATTEND Internal Medicine | DX: Z20.822 Contact with and (suspected) exposure to COVID-19 (principal) ==

== ENCOUNTER 2020-11-21 06:35 | Day surgery (SDC) | payer MEDICARE, MEDICAID ==
[~2020-11-21] VITALS: Ht 167.6 cm; Wt 95.2 kg
[~2020-11-21 06:35] MED LIST changes: +HYDR-3490 PO; -HYDR25TAB PO; +LISI10TA22 PO; -LISI10TA4 PO; +NS 1,000 ML IV ONE
--- OUTSIDE RECORDS SUMMARY | 2020-11-21 06:40 | CCD ---
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 Active 351019545 Problem Diabetes mellitus, type 2 E11.9 Active 946786 06 Problem SLE (systemic lupus erythematosus) M32.9 Activ e 58935406 Problem Hyperlipidemia E78.5 Active 68952713 Problem Fe deficiency anemia D50.9 Active 07501701 Problem Insomnia G47.00 Active 302502238 Problem Essential hypertension I10 Active 44800048 Problem 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 Active 622844078 Problem senior care current use of anticoagulant Z79.01 A ctive 402523681 Problem Seasonal allergic rhinitis, unspecified trigger J3 0.2 Active 620714551 Problem Chronic kidney disease (CKD), stage 3 (moderate) N 18.3 Active 189482637 Problem Major depressive disorder F32.9 Active 536170 000 Problem Encounter for therapeutic drug level monitoring Z5 1.81 Active 623193831 Problem Gastroesophageal reflux disease K21.9 Active 484359564 Problem Chronic kidney disease, stage 3 N18.3 Active 350664979 Problem Paroxysmal atrial fibrillation I48.0 Active 2 78195298 Problem Tubulovillous adenoma of colon D12.6 Active 4 15986773 Problem Iron deficiency anemia, unspecified iron deficiency an emia type D50.9 Active 45102316 ALLERGIES Allergen (clinical drug ingredient) Drug/Non Drug Allergy do cumented on EMR Reaction Allergy Type Onset Date Status lisinopril Lisinopril([facility] Code:[address]-59) unknown Drug Allergy Active ENCOUNTERS from 1955 to 2020-11-10 Encounter Location Date Provider Diagnosis [facility] [address] [place] [address] Nov, 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 Z 79.01 ; Hemiplegia of dominant side following cerebrovascular accident (CVA) I69.359 and Encounter for therapeutic drug level monitoring Z51.81 IMMUNIZATIONS Vaccine Route Administration Date Status Influenza (Pharmacy Given) Unknown Aug 17, 2018 Admin istered Influenza (Pharmacy Given) Unknown Aug 27, 2017 Admin istered Influenza (Pharmacy Given) Unknown Oct 18, 2015 Admin istered SOCIAL HISTORY Tobacco Use: Social History Observation Description Date Details (start date - stop date) Former Smoker Sex Assigned At : Social History Observation Description Sex Assigned At Unknown Education: Question Answer Notes Level of Education: Not finished High School Language: Question Answer Notes Languages spoken: Nepali Anabaptism: Question Answer Notes Anabaptism No amish beliefs that would impact health care. Sexual Hx: Question Answer Notes Had sex in the last 12 months (vaginal, oral, or anal)? No LMP: post-menopause Have you ever had an STD? Yes Chlamydia? Yes Alcohol Screening: Question Answer Notes Did you have a drink containing alcohol in the past year? No Points 0 Interpretation Negative Tobacco Use: Question Answer Notes Are you a: former smoker How long has it been since you last smoked? 1-5 years REASON FOR REFERRAL No Information VITAL SIGNS No information MEDICATIONS Medication SIG (Take, Route, Frequency, Duration) Notes Start Da te End Date Status Sertraline HCl 100 MG 1 tablet Orally Once a day for 30 day(s) Active Flonase Allergy Relief 50 MCG/ACT 1 spray in each nost ril Nasally Once a day for 30 day(s) Active Famotidine 20 MG 1 tablet at bedtime Orally Once a day for 30 day(s) Active Omeprazole 40 MG 1 capsule 30 minutes before morning meal Orally Once a day for 30 day(s) Active Tylenol Extra Strength 500 MG 2 tablet Orally bid for 30 Days Sep, Active Tylenol PM Extra Strength 500-25 MG 2 tablet at bedti me Orally before bedtime as needed for sleep for 30 days May, Active Atorvastatin Calcium 40 MG 1 tablet Orally Once a day for 30 Days Active Melatonin 5 MG 1 tablet in the evening Orally Once a day for 30 day(s ) Active Telmisartan 20 MG 1 tab Orally Once a day for 30 day(s) Active Jardiance 25 MG 1 tablet Orally Once a day for 90 day(s) Active Lantus SoloStar 100 UNIT/ML 30 units Subcutaneous Daily for 30 D ays Aug, Active Hydroxychloroquine Sulfate 200 MG as directed Orally Daily for 3 0 Days Jan, Active MiraLax - 1 packet mixed with 8 ounces of fluid Or ally Once a day for 30 day(s) Active Gabapentin 100 MG 1 capsule Orally three times a day for 30 Days Active Warfarin Sodium 5 MG 1 tablet Orally Once a day for 14 day(s) Nov, Active Januvia 50 MG as directed Orally Act eligio Ferrous Sulfate 325 (65 Fe) MG 1 tablet Orally Once a day for 30 Days Active PROCEDURES No Information RESULTS No Results REASON FOR VISIT PT/INR MEDICAL (GENERAL) HISTORY Type Description Date Medical History T2DM NID Medical History Hyperlipidemia Medical History MDD Medical History SLE Medical History hypertension, essential Medical History ho 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 Sellers polyps-tubulovillus adenoma- repeat 12/2018 - tubular/tubulovillus adenoma 07/2016 Surgical History Tubal ligation Hospitalization History stroke 12/04/14 Goals Section No Information Health Concerns No Information MEDICAL EQUIPMENT No Information MENTAL STATUS No Information FUNCTIONAL STATUS No Information ASSESSMENTS Encounter Date Diagnosis Assessment Notes Treatment Notes Treatm ent Clinical Notes Nov, senior care current use of anticoagulant (ICD-10 - Z79.01) Nov, Hemiplegia of dominant side following cerebrovascular accident (CVA) (ICD-10 - I69.359) Nov, Encounter for therapeutic drug level celena lópez (ICD-10 - Z51.81) PLAN OF TREATMENT Medication Medication Name Sig Start Date Stop Date Warfarin Sodium 5 MG 1 tablet Orally Once a day for 14 day(s) Nov, Future Test Test Name Order Date PT-INR [id number] Next Appt Details Provider Name:Gloria Agrawal, 2020-0 5-11 02:30:00 PM, [address] [place], [address], Insurance Providers Payer Name Payer Address Payer Phone Insured Name Patient Relati onship to Insured Coverage Start Date Coverage End Date MEDICAID [employer] [address] [facility] [id number] [place] MEDICARE Part A and B [address] [place] [address] [place]
--- OUTSIDE RECORDS SUMMARY | 2020-11-21 06:40 | CCD ---
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 Active 134870037 Problem Diabetes mellitus, type 2 E11.9 Active 059013 06 Problem SLE (systemic lupus erythematosus) M32.9 Activ e 45641145 Problem Hyperlipidemia E78.5 Active 02930406 Problem Fe deficiency anemia D50.9 Active 44695257 Problem Insomnia G47.00 Active 512327386 Problem Essential hypertension I10 Active 99350717 Problem 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 Active 980590712 Problem alf current use of anticoagulant Z79.01 A ctive 711996432 Problem Seasonal allergic rhinitis, unspecified trigger J3 0.2 Active 685842904 Problem Chronic kidney disease (CKD), stage 3 (moderate) N 18.3 Active 148090265 Problem Major depressive disorder F32.9 Active 857850 000 Problem Encounter for therapeutic drug level monitoring Z5 1.81 Active 949402919 Problem Gastroesophageal reflux disease K21.9 Active 723611869 Problem Chronic kidney disease, stage 3 N18.3 Active 424338009 Problem Paroxysmal atrial fibrillation I48.0 Active 2 08554524 Problem Tubulovillous adenoma of colon D12.6 Active 4 14646952 Problem Iron deficiency anemia, unspecified iron deficiency an emia type D50.9 Active 27708674 ALLERGIES Allergen (clinical drug ingredient) Drug/Non Drug Allergy do cumented on EMR Reaction Allergy Type Onset Date Status lisinopril Lisinopril([facility] Code:[address]-96) unknown Drug Allergy Active ENCOUNTERS from 1955 to 2020-11-13 Encounter Location Date Provider Diagnosis [facility] [address] [place] [address] Nov, Gloria Agrawal Diabetes mellitus, type 2 E11.9 IMMUNIZATIONS Vaccine Route Administration Date Status Influenza [...] School Language: Question Answer Notes Languages spoken: Belarusian Yarsani: Question Answer Notes Yarsani No gnosticism beliefs that would impact health care. Sexual [...] Notes Start Da te End Date Status Flonase Allergy Relief 50 MCG/ACT 1 spray in each nost ril Nasally Once a day for 30 day(s) Active BD AutoShield Duo 30G X 5 MM as directed E11.9 Daily for 30 Days Nov, Active Omeprazole 40 MG 1 capsule 30 minutes before morning meal Orally Once a day for 30 day(s) Active Telmisartan 20 MG 1 tab Orally Once a day for 30 day(s) Active Sertraline HCl 100 MG 1 tablet Orally [...] a day for 30 day(s ) Active Hydroxychloroquine Sulfate 200 MG as directed Orally Daily for 3 0 Days Jan, Active Gabapentin 100 MG 1 capsule Orally three times a day for 30 Days Active MiraLax - 1 packet mixed with 8 ounces of fluid Or ally Once a day for 30 day(s) Active Lantus SoloStar 100 UNIT/ML 30 units Subcutaneous Daily for 30 D ays Aug, Active Jardiance 25 MG 1 tablet Orally Once a day for 90 day(s) Active Ferrous Sulfate 325 (65 Fe) MG 1 tablet Orally Once a day for 30 Days Active Warfarin Sodium 5 MG 1 tablet Orally Once a day for 14 day(s) Nov, Active Famotidine 20 MG 1 tablet at bedtime Orally Once a day for 30 day(s) Active Januvia 50 MG as directed Orally Once a day for 30 Days Active PROCEDURES No Information RESULTS No Results REASON FOR VISIT Meds MEDICAL (GENERAL) HISTORY Type Description Date Medical [...] Treatment Notes Treatm ent Clinical Notes Nov, Diabetes mellitus, type 2 (ICD-10 - E11.9) PLAN OF TREATMENT Medication Medication Name Sig Start Date Stop Date Lantus SoloStar 100 UNIT/ML 30 units Subcutaneous Daily for 30 Days Aug, Warfarin Sodium 5 MG 1 tablet Orally Once a day for 14 day(s) Nov, BD AutoShield Duo 30G X 5 MM as directed E11.9 Daily for 30 Days Nov, Januvia 50 MG as directed Orally Once a day for 30 Days Next Appt Details Provider Name:Gloria Agrawal, 2020-0 5-11 02:30:00 PM, [address] [place], [address], Insurance Providers Payer Name Payer Address Payer Phone Insured Name Patient Relati onship to Insured Coverage Start Date Coverage End Date MEDICAID [employer] [address] [facility] [id number] [place] MEDICARE Part A and B [address] [facility] [address] [phone] [place]
--- OUTSIDE RECORDS SUMMARY | 2020-11-21 06:40 | CCD ---
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 Active 174719836 Problem Diabetes mellitus, type 2 E11.9 Active 682111 06 Problem SLE (systemic lupus erythematosus) M32.9 Activ e 01489181 Problem Hyperlipidemia E78.5 Active 52615143 Problem Fe deficiency anemia D50.9 Active 69573866 Problem Insomnia G47.00 Active 603979936 Problem Essential hypertension I10 Active 11983110 Problem 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 Active 018256596 Problem retirement current use of anticoagulant Z79.01 A ctive 215878953 Problem Seasonal allergic rhinitis, unspecified trigger J3 0.2 Active 132230042 Problem Chronic kidney disease (CKD), stage 3 (moderate) N 18.3 Active 556434610 Problem Major depressive disorder F32.9 Active 262551 000 Problem Encounter for therapeutic drug level monitoring Z5 1.81 Active 741568283 Problem Gastroesophageal reflux disease K21.9 Active 152452350 Problem Chronic kidney disease, stage 3 N18.3 Active 354353297 Problem Paroxysmal atrial fibrillation I48.0 Active 2 17267492 Problem Tubulovillous adenoma of colon D12.6 Active 4 50102458 Problem Iron deficiency anemia, unspecified iron deficiency an emia type D50.9 Active 79051668 ALLERGIES Allergen (clinical drug ingredient) Drug/Non Drug Allergy do cumented on EMR Reaction Allergy Type Onset Date Status lisinopril Lisinopril([facility] Code:[address]-17) unknown Drug Allergy Active ENCOUNTERS from 1955 to 2020-11-10 Encounter Location Date Provider Diagnosis [facility] [address] [place] [address] Nov, Gloria Wilsonterell IMMUNIZATIONS Vaccine Route Administration Date Status Influenza [...] School Language: Question Answer Notes Languages spoken: Malawian Oriental Orthodox: Question Answer Notes Oriental Orthodox No episcopal beliefs that would impact health care. Sexual [...] No Information FUNCTIONAL STATUS No Information ASSESSMENTS No Information PLAN OF TREATMENT Medication Medication Name Sig Start Date Stop Date Warfarin Sodium 5 MG 1 tablet Orally Once a day for 14 day(s) Nov, Next Appt Details Provider Name:Gloria Agrawal, 2020-0 5-11 02:30:00 PM, [address] [place], [address], Insurance Providers Payer Name Payer Address Payer Phone Insured Name Patient Relati onship to Insured Coverage Start Date Coverage End Date MEDICAID [employer] [address] [facility] [address] [place] MEDICARE Part A and B [address] [facility] [address] [place] self
--- OUTSIDE RECORDS SUMMARY | 2020-11-21 06:40 | CCD ---
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 Active 454791584 Problem Diabetes mellitus, type 2 E11.9 Active 780716 06 Problem SLE (systemic lupus erythematosus) M32.9 Activ e 23646448 Problem Hyperlipidemia E78.5 Active 16096701 Problem Fe deficiency anemia D50.9 Active 37937804 Problem Insomnia G47.00 Active 213474384 Problem Essential hypertension I10 Active 26086818 Problem 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 Active 751000200 Problem 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 Z79.01 A ctive 777345422 Problem Seasonal allergic rhinitis, unspecified trigger J3 0.2 Active 113760126 Problem Chronic kidney disease (CKD), stage 3 (moderate) N 18.3 Active 087721809 Problem Major depressive disorder F32.9 Active 627513 000 Problem Encounter for therapeutic drug level monitoring Z5 1.81 Active 985000383 Problem Gastroesophageal reflux disease K21.9 Active 478737350 Problem Chronic kidney disease, stage 3 N18.3 Active 211437201 Problem Paroxysmal atrial fibrillation I48.0 Active 2 62592220 Problem Tubulovillous adenoma of colon D12.6 Active 4 49835845 Problem Iron deficiency anemia, unspecified iron deficiency an emia type D50.9 Active 37881786 ALLERGIES Allergen (clinical drug ingredient) Drug/Non Drug Allergy do cumented on EMR Reaction Allergy Type Onset Date Status lisinopril Lisinopril([facility] Code:[address]-14) unknown Drug Allergy Active ENCOUNTERS from 1955 to 2020-11-15 Encounter Location Date Provider Diagnosis [facility] [address] [place] [address] 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 (ICD-10 - Z79.) Addendum note to 11/07/2020: instruction on Warfaring prior to colonoscopy: The patient will take her last dose of warfarin 2 days before her procedure and restart it the PM of the procedure Nov, Hemiplegia of dominant side following cerebrovascular accident (CVA) (ICD-10 - I69.359) Nov, Colon cancer screening (ICD-10 - Z12.11) PLAN OF TREATMENT Medication Medication Name Sig [...] Orally Once a day for 30 Days Treatment Notes Assessment Notes Clinical Notes 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 A ddendum note to 11/07/2020: instruction on Warfaring prior to colonoscopy: The patient will take her last dose of warfarin 2 days before her procedure and restart it the PM of the procedure Next Appt Details Provider Name:Gloria Nghia, 2020-0 03-12 02:30:00 PM, [address] [place], [address], Insurance Providers Payer Name Payer Address Payer Phone Insured Name Patient Relati onship to Insured Coverage Start Date Coverage End Date MEDICAID [employer] [address] [facility] [id number] [place] MEDICARE Part A and B [address] [facility] [address] [phone] [place]
--- OUTSIDE RECORDS SUMMARY | 2020-11-21 06:40 | CCD ---
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 Active 152437892 Problem Diabetes mellitus, type 2 E11.9 Active 866165 06 Problem SLE (systemic lupus erythematosus) M32.9 Activ e 11417623 Problem Hyperlipidemia E78.5 Active 28361392 Problem Fe deficiency anemia D50.9 Active 85850866 Problem Insomnia G47.00 Active 250322871 Problem Essential hypertension I10 Active 85238958 Problem 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 Active 038321111 Problem residential current use of anticoagulant Z79.01 A ctive 073449468 Problem Seasonal allergic rhinitis, unspecified trigger J3 0.2 Active 335472765 Problem Chronic kidney disease (CKD), stage 3 (moderate) N 18.3 Active 445207009 Problem Major depressive disorder F32.9 Active 458740 000 Problem Encounter for therapeutic drug level monitoring Z5 1.81 Active 289123385 Problem Gastroesophageal reflux disease K21.9 Active 864864689 Problem Chronic kidney disease, stage 3 N18.3 Active 606790933 Problem Paroxysmal atrial fibrillation I48.0 Active 2 65545352 Problem Tubulovillous adenoma of colon D12.6 Active 4 78364528 Problem Iron deficiency anemia, unspecified iron deficiency an emia type D50.9 Active 78429150 ALLERGIES Allergen (clinical drug ingredient) Drug/Non Drug Allergy do cumented on EMR Reaction Allergy Type Onset Date Status lisinopril Lisinopril([facility] [place] Code:[address]-38) unknown Drug Allergy Active ENCOUNTERS from 1955 to 2020-10-22 Encounter Location Date Provider Diagnosis [facility] [place] [address] Oct, 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 Sexual [...] Notes Start Da te End Date Status Atorvastatin Calcium 40 MG 1 tablet Orally Once a day for 30 Days Active Sertraline HCl 100 MG 1 tablet Orally Once a day Unknown Warfarin Sodium 5 MG 1 tablet Orally Sun, Thu, Thu, Thursday for 3 0 day(s) Oct, Active Bengay Greaseless 10-15 % apply to affected right shou lder Externally bid for 30 Days Sep, Unknown MiraLax - 1 packet mixed with 8 ounces of fluid Or ally Once a day for 30 day(s) Unknown Atorvastatin Calcium 40 MG 1 tablet Orally Once a day Unknown Acetaminophen 500 MG 1 capsule as needed Orally every 6 hrs Unknown Melatonin 5 MG 1 tablet at bedtime as needed with food Orally Once a day Unknown Novuvia 50 MG 1 tablet Orally Once a day for 30 Days Unknown Sertraline HCl 100 MG 1 tablet Orally Once a day for 30 day(s) Unknown Lantus SoloStar 100 UNIT/ML 30 units Subcutaneous Daily for 30 D ays Aug, Unknown BD Ultra-fine Pen [place] 32G 4mm as directed E11.9 Daily for 30 Days Unknown Gabapentin 300 MG 1 cap Oral three times daily for 30 days Unknown Flonase Allergy Relief 50 MCG/ACT 1 spray in each nost ril Nasally Once a day for 30 Days Unknown Jardiance 25 MG 1 tablet Orally Once a day for 30 day(s) Unknown Warfarin Sodium 7.5 MG 1 tablet / Orally O nce a day / for 30 day(s) Sep, Active Omeprazole 40 MG 1 capsule Orally Once a day 30 minutes before lunch for 30 day(s) Unknown Famotidine 20 MG 1 tablet at bedtime Orally Once a day for 30 day(s) Active May Have - extension of santi chair fran trivedi to extend length for legs _ _ for 999 days March, Unknown Tylenol PM Extra Strength 500-25 MG 2 tablet at bedti me Orally before bedtime as needed for sleep for 30 days May, Unknown Tylenol Extra Strength 500 MG 2 tablet Orally bid for 30 Days Sep, Unknown Eucerin - as directed Externally Un known Jardiance 25 MG 1 tablet Orally Once a day for 90 day(s) Active Milk of Magnesia 400 MG/5ML 5 ml at least 4 hours betw een doses as needed Orally Four times a day Unknown Ferrous Sulfate 325 (65 Fe) MG 1 tablet Orally Once a day for 30 Days Active Telmisartan 20 MG 1 tab Orally Once a day for 30 day(s) Active Hydroxychloroquine Sulfate 200 MG 1 tablet with food or milk Orally Once a day Unknown Hydroxychloroquine Sulfate 200 MG as directed Orally Daily for 3 0 Days Jan, Active Gabapentin 100 MG 1 capsule Orally three times a day for 30 Days Active PROCEDURES [...] Notes Treatment Notes Treatm ent Clinical Notes Oct, 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 (ICD-10 - Z79.01) Oct, Hemiplegia of dominant side following cerebrovascular accident (CVA) (ICD-10 - I69.359) Oct, Gastroesophageal reflux disease (ICD-10 - K21.9) PLAN OF TREATMENT Medication Medication Name Sig Start Date Stop Date Hydroxychloroquine Sulfate 200 MG as directed Orally Daily f or 30 Days Jan, Gabapentin 100 MG 1 capsule Orally three times a day for 30 Days Ferrous Sulfate 325 (65 Fe) MG 1 tablet Orally Once a day for 30 Days Telmisartan 20 MG 1 tab Orally Once a day for 30 day(s) Atorvastatin Calcium 40 MG 1 tablet Orally Once a day for 30 Day s Warfarin Sodium 7.5 MG 1 tablet tu/Thurs Orally O nce a day /thurs for 30 day(s) Sep, Famotidine 20 MG 1 tablet at bedtime Orally Once a day for 30 da y(s) Warfarin Sodium 5 MG 1 tablet Orally Sun, Thu, Thu, Thursday f or 30 day(s) Oct, Jardiance 25 MG 1 tablet Orally Once a day for 90 day(s) Future Test Test Name Order Date PT-INR [id number] Next Appt Details Provider Name:Gloria Agrawal, 1- 01:00:00 PM, [address] [place], [address], Provider Name:Gloria Agrawal, 2020-0 03-12 02:30:00 PM, [address] [place], [address], Insurance Providers Payer Name Payer Address Payer Phone Insured Name Patient Relati onship to Insured Coverage Start Date Coverage End Date MEDICAID [employer] [address] [facility] [id number] [place] MEDICARE Part A and B [address] [facility] [phone] [phone] [place] self
--- OUTSIDE RECORDS SUMMARY | 2020-11-21 06:40 | CCD ---
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 Active 186279759 Problem Diabetes mellitus, type 2 E11.9 Active 746576 06 Problem SLE (systemic lupus erythematosus) M32.9 Activ e 17877867 Problem Hyperlipidemia E78.5 Active 90863690 Problem Fe deficiency anemia D50.9 Active 11673338 Problem Insomnia G47.00 Active 111168370 Problem Essential hypertension I10 Active 73602961 Problem 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 Active 429301426 Problem [facility] current use of anticoagulant Z79.01 A ctive 043931353 Problem Seasonal allergic rhinitis, unspecified trigger J3 0.2 Active 502896116 Problem Chronic kidney disease (CKD), stage 3 (moderate) N 18.3 Active 135644483 Problem Major depressive disorder F32.9 Active 779901 000 Problem Encounter for therapeutic drug level monitoring Z5 1.81 Active 066592359 Problem Gastroesophageal reflux disease K21.9 Active 275201988 Problem Chronic kidney disease, stage 3 N18.3 Active 513685690 Problem Paroxysmal atrial fibrillation I48.0 Active 2 08426866 Problem Tubulovillous adenoma of colon D12.6 Active 4 29120197 Problem Iron deficiency anemia, unspecified iron deficiency an emia type D50.9 Active 36170154 ALLERGIES Allergen (clinical drug ingredient) Drug/Non Drug Allergy do cumented on EMR Reaction Allergy Type Onset Date Status lisinopril Lisinopril([facility] [place] Code:[address]-79) unknown Drug Allergy Active ENCOUNTERS from 1955 to 2020-11-12 Encounter Location Date Provider Diagnosis [facility] Edgar [address] [place] [address] Nov, Gloria Agrawal Shortness of breath R06.02 ; [facility] c urrent use of anticoagulant Z79.01 ; Hemiplegia of dominant side following cerebrovascular accident (CVA) I69.359 and Insomnia G47.00 IMMUNIZATIONS Vaccine Route Administration Date Status Influenza [...] School Language: Question Answer Notes Languages spoken: Welsh Zoroastrian: Question Answer Notes Zoroastrian No anabaptist beliefs that would impact health care. Sexual [...] REASON FOR REFERRAL No Information VITAL SIGNS Weight 201 lbs Nov, Height 68 in Nov, BMI 30.56 kg/m2 Nov, Heart Rate 88 /min Nov, Respiratory Rate 18 /min Nov, Temperature 98.1 degrees Fahrenheit Nov, Oximetry 99 Nov, Blood pressure systolic 124 mm Hg Nov, Blood pressure diastolic 74 mm Hg Nov, MEDICATIONS Medication SIG (Take, Route, Frequency, Duration) [...] 30 Days Active PROCEDURES No Information RESULTS Component Value Reference Range NT-PRO BNP Reviewed date:11/07/2020 17:11:06 Interpretation: Performing Lab:[facility] LABORATORY [address] [facility] [address] , ,[place] [address] NT-PRO BNP 25 <125 CBC with Differential Reviewed date:11/07/2020 17:11:01 Interpretation: Performing Lab:[facility] access hospital LABORATORY [address] [facility] [address] , ,[facility] WHITE BLOOD COUNT 7.4 4.0-10.0 RED BLOOD COUNT 4.81 4.00-5.40 HEMOGLOBIN 12.4 12.0-15.5 HEMATOCRIT 40.7 36.0-47.0 MEAN CORPUSCULAR VOLUME 84.6 80.0-96.0 MEAN CORPUSCULAR HEMOGLOBIN 25.8 27.0-33.0 MEAN CORPUSCULAR HGB CONC 30.5 32.0-36.5 RED CELL DISTRIBUTION WIDTH 15.9 11.5-14.5 PLATELET COUNT, AUTOMATED 310 150-450 NEUTROPHILS % 43.3 36.0-66.0 LYMPH % 41.1 24.0-44.0 MONO % 8.7 0.0-5.0 EOS % 6.1 0.0-3.0 BASO % 0.5 0.0-1.0 NEUTROPHILS # 3.2 1.5-8.5 LYMPH # 3.0 1.5-5.0 MONO # 0.6 0.0-0.8 EOS # 0.5 0.0-0.5 BASO # 0.0 0.0-0.2 PT-INR Fingerstick Reviewed date:11/07/2020 13:45:48 Interpretation: Performing Lab:[facility], ,[facility] INR 6.1 Verified Patient's Name and Current Dose 1 7.5 Tue/thur/Sat Current Dose 2 5 mg ROW Tab Strength 5 mg/7.5 Indication for Anticoagulation Stroke Recent Bleeding no Internal QC Acceptable (Y/N) yes Therapeutic Range 2-3 Education Given (Date / Initials) New Dose 1 hold x2 days New Dose 2 Weekly Total Next PT-INR 3 days - - REASON FOR VISIT pre-op needs coumadin instructiions MEDICAL (GENERAL) HISTORY Type Description Date Medical [...] Treatment Notes Treatm ent Clinical Notes Nov, Shortness of breath (ICD-10 - R06.02) office O2 sat 99%. Labs/x-ray to risk stratify favor deconditioning contingency: cardiology/pulmonology Nov, [facility] current use of anticoagulant (ICD-10 - Z79.01) supratherpeutic range 6.1. obtain lab draw Hold today/tomorrow repeat lab 11/09/20 Nov, Hemiplegia of dominant side following cerebrovascular accident (CVA) (ICD-10 - I69.359) powered wheel chair Nov, Insomnia (ICD-10 - G47.00) given persistent ongoing insomnia and day time sleepiness. referral to pulmonology for Sleep study PLAN OF TREATMENT Medication Medication Name Sig Start Date Stop Date Warfarin Sodium 5 MG 1 tablet Orally Once a day for 14 day(s) Nov, Treatment Notes Assessment Notes Clinical Notes Shortness of breath office O2 sat 99%.La bs/x-ray to risk stratifyfavor deconditioningcontingency: cardiology/pulmonology [facility] current use of anticoagulant s upratherpeutic range 6.1. obtain lab drawHold today/tomorrowrepeat lab 11/09/20 Hemiplegia of dominant side following cerebrovascular accide nt (CVA) powered wheel chair Insomnia given persistent june oing insomnia and day time sleepiness.referral to pulmonology for Sleep study Treatment Notes Test Name Order Date Chest X-ray PA and lateral 2020-11-12 Future Test Test Name Order Date PT-INR [id number] PT-INR [id number] Next Appt Details Reason: Provider Name:Gloria Agrawal, 03-12 02:30:00 PM, [address] [place], [address], Insurance Providers Payer Name Payer Address Payer Phone Insured Name Patient Relati onship to Insured Coverage Start Date Coverage End Date MEDICARE Part A and B [facility] [address] [place] [phone] [place] MEDICA[employer] [address] [facility] [id number] [place] self
--- OUTSIDE RECORDS SUMMARY | 2020-11-21 06:41 | CCD ---
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 Active 875373597 Problem Diabetes mellitus, type 2 E11.9 Active 899708 06 Problem SLE (systemic lupus erythematosus) M32.9 Activ e 20007102 Problem Hyperlipidemia E78.5 Active 01327642 Problem Fe deficiency anemia D50.9 Active 30538287 Problem Insomnia G47.00 Active 356201280 Problem Essential hypertension I10 Active 91436832 Problem 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 Active 783851720 Problem half-way current use of anticoagulant Z79.01 A ctive 208977358 Problem Seasonal allergic rhinitis, unspecified trigger J3 0.2 Active 672115518 Problem Chronic kidney disease (CKD), stage 3 (moderate) N 18.3 Active 930771031 Problem Major depressive disorder F32.9 Active 944013 000 Problem Encounter for therapeutic drug level monitoring Z5 1.81 Active 597432910 Problem Gastroesophageal reflux disease K21.9 Active 185276896 Problem Chronic kidney disease, stage 3 N18.3 Active 288679132 Problem Paroxysmal atrial fibrillation I48.0 Active 2 50496703 Problem Tubulovillous adenoma of colon D12.6 Active 4 55332697 Problem Iron deficiency anemia, unspecified iron deficiency an emia type D50.9 Active 05161721 ALLERGIES Allergen (clinical drug ingredient) Drug/Non Drug Allergy do cumented on EMR Reaction Allergy Type Onset Date Status lisinopril Lisinopril([facility] Code:[address]-76) unknown Drug Allergy Active ENCOUNTERS from 1955 to 2020-10-10 Encounter Location Date Provider Diagnosis [facility] Edgar [address] [place] [address] Oct, Gloria Agrawal IMMUNIZATIONS Vaccine Route Administration Date Status Influenza [...] School Language: Question Answer Notes Languages spoken: British Rastafari: Question Answer Notes Rastafari No yazidism beliefs that would impact health care. Sexual [...] Once a day for 30 day(s) Unknown Melatonin 5 MG 1 tablet at bedtime as needed with food Orally Once a day Unknown MiraLax - 1 packet mixed with 8 ounces of fluid Or ally Once a day for 30 day(s) Unknown Gabapentin 100 MG 1 capsule Orally three times a day for 30 Days Unknown Tylenol PM Extra Strength 500-25 MG 2 tablet at bedti me Orally before bedtime as needed for sleep for 30 days May, Unknown Atorvastatin Calcium 40 MG 1 tablet Orally Once a day Unknown Hydroxychloroquine Sulfate 200 MG as directed Orally Daily Jan, Unknown Telmisartan 20 MG 1 tab Orally Once a day for 30 day(s) Unknown Januvia 50 MG 1 tablet Orally Once a day for 30 Days Unknown Omeprazole 40 MG 1 capsule Orally Once a day 30 minutes before lunch for 30 day(s) Unknown Lantus SoloStar 100 UNIT/ML 30 units Subcutaneous Daily for 30 D ays Aug, Unknown BD Ultra-fine Pen [place] 32G 4mm as directed E11.9 Daily for 30 Days Unknown Warfarin Sodium 5 MG 1 tablet Orally Sun, Thu, Wed, Thursday for 3 0 day(s) Oct, Active Warfarin Sodium 7.5 MG 1 tablet / Orally O nce a day / for 30 day(s) Sep, Active Flonase Allergy Relief 50 MCG/ACT 1 spray in each nost ril Nasally Once a day for 30 Days Unknown Ferrous Sulfate 325 (65 Fe) MG 1 tablet Orally Once a day Unknown Bengay Greaseless 10-15 % apply to affected right shou lder Externally bid for 30 Days Sep, Unknown Famotidine 20 MG 1 tablet at bedtime as needed Orally Onc e a day for 30 day(s) Unknown Atorvastatin Calcium 40 MG 1 tablet Orally Once a day for 30 Days Active Tylenol Extra Strength 500 MG 2 tablet Orally bid for 30 Days Sep, Unknown Sertraline HCl 100 MG 1 tablet Orally Once a day Unknown Gabapentin 300 MG 1 cap Oral three times daily for 30 days Unknown Acetaminophen 500 MG 1 capsule as needed Orally every 6 hrs Unknown May Have - extension of santi chair fran trivedi to extend length for legs _ _ for 999 days March, Unknown Milk of Magnesia 400 MG/5ML 5 ml at least 4 hours betw een doses as needed Orally Four times a day Unknown Jardiance 25 MG 1 tablet Orally Once a day for 90 day(s) Unknown Eucerin - as directed Externally Un known Jardiance 25 MG 1 tablet Orally Once a day for 30 day(s) Unknown Hydroxychloroquine Sulfate 200 MG 1 tablet with food or milk Orally Once a day Unknown PROCEDURES No Information RESULTS No Results REASON FOR VISIT colonoscopy MEDICAL (GENERAL) HISTORY Type Description Date Medical History T2DM NID Medical History Hyperlipidemia Medical History MDD Medical History SLE Medical History hypertension, essential Medical History ho 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 R Hemiplegia of RUE, hemiparesis [...] Warfarin Sodium 5 MG 1 tablet Orally Thu, Thu, Thu, Thursday f or 30 day(s) Oct, Warfarin Sodium 7.5 MG 1 tablet /Th Orally O nce a day Tu/th for 30 day(s) Sep, Atorvastatin Calcium 40 MG 1 tablet Orally Once a day for 30 Day s Next Appt Details Provider Name:Gloria Agrawal 1-06 01:00:00 PM, [address] [place] [address], [address], Provider Name:Gloria Agrawal 5-11 02:30:00 PM, [address] [place] [address], [phone], Insurance Providers Payer Name Payer Address Payer Phone Insured Name Patient Relati onship to Insured Coverage Start Date Coverage End Date MEDICARE Part A and B [address] [facility] [id number] [place] MEDICAID [employer] [address] [facility] [address] [place]
--- OUTSIDE RECORDS SUMMARY | 2020-11-21 06:41 | CCD ---
Author Author [facility] Organization 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 Active 724391392 Problem Diabetes mellitus, type 2 E11.9 Active 025608 06 Problem SLE (systemic lupus erythematosus) M32.9 Activ e 23156526 Problem Hyperlipidemia E78.5 Active 65963857 Problem Fe deficiency anemia D50.9 Active 06837273 Problem Insomnia G47.00 Active 457171901 Problem Essential hypertension I10 Active 93916935 Problem 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 Active 049392602 Problem half-way current use of anticoagulant Z79.01 A ctive 717749992 Problem Seasonal allergic rhinitis, unspecified trigger J3 0.2 Active 007083152 Problem Chronic kidney disease (CKD), stage 3 (moderate) N 18.3 Active 056051587 Problem Major depressive disorder F32.9 Active 915057 000 Problem Encounter for therapeutic drug level monitoring Z5 1.81 Active 634500690 Problem Gastroesophageal reflux disease K21.9 Active 696179240 Problem Chronic kidney disease, stage 3 N18.3 Active 795083040 Problem Paroxysmal atrial fibrillation I48.0 Active 2 43223850 Problem Tubulovillous adenoma of colon D12.6 Active 4 86688032 Problem Iron deficiency anemia, unspecified iron deficiency an emia type D50.9 Active 07220755 ALLERGIES Allergen (clinical drug ingredient) Drug/Non Drug Allergy do cumented on EMR Reaction Allergy Type Onset Date Status lisinopril Lisinopril([facility] Code:[address]-37) unknown Drug Allergy Active ENCOUNTERS from 1955 to 2020-10-12 Encounter Location Date Provider Diagnosis [facility] [place] [address] Oct, Gloria Agrawal SLE (systemic lupus erythematosus) M32.9 ; Chronic right shoulder pain M25.511 ; Diabetes mellitus, type 2 E11.9 and Essential hypertension I10 IMMUNIZATIONS Vaccine Route Administration Date Status Influenza [...] School Language: Question Answer Notes Languages spoken: Gambian Bahai: Question Answer Notes Bahai No anglican beliefs that would impact health care. Sexual [...] with food Orally Once a day Unknown Januvia 50 MG 1 tablet Orally Once a day for 30 Days Unknown Sertraline HCl 100 MG 1 tablet Orally Once a day for 30 day(s) Unknown Lantus SoloStar 100 UNIT/ML 30 units Subcutaneous Daily for 30 D ays Aug, Unknown BD Ultra-fine Pen [place] 32G 4mm as directed E11.9 Daily for 30 Days Unknown Gabapentin 300 MG 1 cap Oral three times daily for 30 days Unknown Flonase Allergy Relief 50 MCG/ACT 1 spray in each nost ril Nasally Once a day for 30 Days Unknown Ferrous Sulfate 325 (65 Fe) MG 1 tablet Orally Once a day for 30 Days Active Warfarin Sodium 7.5 MG 1 tablet tu/Th Orally O nce a day / for 30 day(s) Sep, Active Omeprazole 40 MG 1 capsule Orally Once a day 30 minutes before lunch for 30 day(s) Unknown Eucerin - as directed Externally Un known May Have - extension of santi chair fran semarc to extend length for legs _ _ for 999 days March, Unknown Tylenol PM Extra Strength 500-25 MG 2 tablet at bedti me Orally before bedtime as needed for sleep for 30 days May, Unknown Tylenol Extra Strength 500 MG 2 tablet Orally bid for 30 Days Sep, Unknown Jardiance 25 MG 1 tablet Orally Once a day for 30 day(s) Unknown Jardiance 25 MG 1 tablet Orally Once a day for 90 day(s) Active Milk of Magnesia 400 MG/5ML 5 ml at least 4 hours betw een doses as needed Orally Four times a day Unknown Hydroxychloroquine Sulfate 200 MG 1 tablet with food or milk Orally Once a day Unknown Telmisartan 20 MG 1 tab Orally Once a day for 30 day(s) Active Famotidine 20 MG 1 tablet at bedtime as needed Orally Onc e a day for 30 day(s) Active Hydroxychloroquine Sulfate 200 MG as directed Orally Daily for 3 0 Days Jan, Active Gabapentin 100 MG 1 capsule Orally three times a day for 30 Days Active PROCEDURES No Information RESULTS No Results REASON FOR VISIT Multiple refills MEDICAL (GENERAL) HISTORY Type Description Date Medical [...] Treatment Notes Treatm ent Clinical Notes Oct, SLE (systemic lupus erythematosus) (ICD-10 - M32 .9) Oct, Chronic right shoulder pain (ICD-10 - M25.511) Oct, Diabetes mellitus, type 2 (ICD-10 - E11.9) Oct, Essential hypertension (ICD-10 - I10) PLAN OF TREATMENT Medication Medication Name Sig Start Date Stop Date Hydroxychloroquine Sulfate 200 MG as directed Orally Daily f or 30 Days Jan, Gabapentin 100 MG 1 capsule Orally three times a day for 30 Days Famotidine 20 MG 1 tablet at bedtime as needed Orally Onc e a day for 30 day(s) Telmisartan 20 MG 1 tab Orally Once a day for 30 day(s) Atorvastatin Calcium 40 MG 1 tablet Orally Once a day for 30 Day s Warfarin Sodium 7.5 MG 1 tablet tu/Thurs Orally O nce a day Tu/thurs for 30 day(s) Sep, Ferrous Sulfate 325 (65 Fe) MG 1 tablet Orally Once a day for 30 Days Warfarin Sodium 5 MG 1 tablet Orally Sun, Thu, Thu, Thursday f or 30 day(s) Oct, Jardiance 25 MG 1 tablet Orally Once a day for 90 day(s) Next Appt Details Provider Name:Gloria Agrawal 2020-0 1-06 01:00:00 PM, [address] [place], [address], Provider Name:Gloria Agrawal 2020-03-12 02:30:00 PM, [address] [place], [address], Insurance Providers Payer Name Payer Address Payer Phone Insured Name Patient Relati onship to Insured Coverage Start Date Coverage End Date MEDICAID [id number] [address] [facility] [address] [place] MEDICARE Part A and B [address] [facility] [address] [phone] [place] self
--- OUTSIDE RECORDS SUMMARY | 2020-11-21 06:41 | CCD ---
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 Active 204349323 Problem Diabetes mellitus, type 2 E11.9 Active 974644 06 Problem SLE (systemic lupus erythematosus) M32.9 Activ e 26271090 Problem Hyperlipidemia E78.5 Active 35789162 Problem Fe deficiency anemia D50.9 Active 24038475 Problem Insomnia G47.00 Active 706874745 Problem Essential hypertension I10 Active 92623288 Problem 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 Active 925892686 Problem [facility] current use of anticoagulant Z79.01 A ctive 981981602 Problem Seasonal allergic rhinitis, unspecified trigger J3 0.2 Active 436100671 Problem Chronic kidney disease (CKD), stage 3 (moderate) N 18.3 Active 329930155 Problem Major depressive disorder F32.9 Active 373635 000 Problem Encounter for therapeutic drug level monitoring Z5 1.81 Active 467407087 Problem Gastroesophageal reflux disease K21.9 Active 658113256 Problem Chronic kidney disease, stage 3 N18.3 Active 242207510 Problem Paroxysmal atrial fibrillation I48.0 Active 2 05269170 Problem Tubulovillous adenoma of colon D12.6 Active 4 67461101 Problem Iron deficiency anemia, unspecified iron deficiency an emia type D50.9 Active 98092131 ALLERGIES Allergen (clinical drug ingredient) Drug/Non Drug Allergy do cumented on EMR Reaction Allergy Type Onset Date Status lisinopril Lisinopril([facility] Code:[address]-72) unknown Drug Allergy Active ENCOUNTERS from 1955 to 2020-09-24 Encounter Location Date Provider Diagnosis [facility] [place] [address] Sep, Gloria Agrawal IMMUNIZATIONS Vaccine Route Administration Date [...] School Language: Question Answer Notes Languages spoken: Maldivian Roman Catholic: Question Answer Notes Roman Catholic No temple beliefs that would impact health care. Sexual [...] Notes Start Da te End Date Status Januvia 50 MG 1 tablet Orally Once a day for 30 Days Active Sertraline HCl 100 MG 1 tablet Orally Once a day for 30 day(s) Active Omeprazole 40 MG 1 capsule Orally Once a day 30 minutes before lunch for 30 day(s) Active Hydroxychloroquine Sulfate 200 MG as directed Orally Daily Jan, Active Lantus SoloStar 100 UNIT/ML 30 units Subcutaneous Daily for 30 D ays Aug, Active Ferrous Sulfate 325 (65 Fe) MG 1 tablet Orally Once a day Active Telmisartan 20 MG 1 tab Orally Once a day for 30 day(s) Active Coumadin 4 MG 1 tablet Orally 6 mg Tues 4 mg ROW for 30 day(s) Active Milk of Magnesia 400 MG/5ML 5 ml at least 4 hours betw een doses as needed Orally Four times a day Active Jardiance 25 MG 1 tablet Orally Once a day for 30 day(s) Active Sertraline HCl 100 MG 1 tablet Orally Once a day Active Eucerin - as directed Externally Ac tive Flonase Allergy Relief 50 MCG/ACT 1 spray in each nost ril Nasally Once a day for 30 Days Active Famotidine 20 MG 1 tablet at bedtime as needed Orally Onc e a day for 30 day(s) Active Hydroxychloroquine Sulfate 200 MG 1 tablet with food or milk Orally Once a day Active May Have - extension of santi chair fran trivedi to extend length for legs _ _ for 999 days March, Active MiraLax - 1 packet mixed with 8 ounces of fluid Or ally Once a day for 30 day(s) Active Gabapentin 300 MG 1 cap Oral three times daily for 30 days Active Atorvastatin Calcium 40 MG 1 tablet Orally Once a day for 30 Days Active BD Ultra-fine Pen [place] 32G 4mm as directed E11.9 Daily for 30 Days Active Acetaminophen 500 MG 1 capsule as needed Orally every 6 hrs Active Atorvastatin Calcium 40 MG 1 tablet Orally Once a day Active Tylenol Extra Strength 500 MG 2 tablet Orally bid for 30 Days Sep, Active Tylenol PM Extra Strength 500-25 MG 2 tablet at bedti me Orally before bedtime as needed for sleep for 30 days May, Active Melatonin 5 MG 1 tablet at bedtime as needed with food Orally Once a day Active Warfarin Sodium 7.5 MG 1 tablet tues/Thurs Orally O nce a day Tu/thurs for 30 day(s) Sep, Active Gabapentin 100 MG 1 capsule Orally three times a day for 30 Days Active Jardiance 25 MG 1 tablet Orally Once a day for 90 day(s) Active Bengay Greaseless 10-15 % apply to affected right shou lder Externally bid for 30 Days Sep, Active PROCEDURES No Information RESULTS No Results REASON FOR VISIT Tylenol PM Extra Strength 500-25 MG Tablet MEDICAL (GENERAL) HISTORY Type Description Date Medical [...] Medication Name Sig Start Date Stop Date Gabapentin 100 MG 1 capsule Orally three times a day for 30 Days Bengay Greaseless 10-15 % apply to affected right shou lder Externally bid for 30 Days Sep, Hydroxychloroquine Sulfate 200 MG 1 tablet with food or milk Orally Once a day Melatonin 5 MG 1 tablet at bedtime as needed with food Orally O nce a day Telmisartan 20 MG 1 tab Orally Once a day for 30 day(s) Januvia 50 MG 1 tablet Orally Once a day for 30 Days Tylenol PM Extra Strength 500-25 MG 2 tablet at bedti me Orally before bedtime as needed for sleep for 30 days May, Atorvastatin Calcium 40 MG 1 tablet Orally Once a day Omeprazole 40 MG 1 capsule Orally Once a day 30 minutes before lunch for 30 day(s) Tylenol Extra Strength 500 MG 2 tablet Orally bid for 30 Days Sep, Lantus SoloStar 100 UNIT/ML 30 units Subcutaneous Daily for 30 Days Aug, BD Ultra-fine Pen [place] 32G 4mm as directed E11.9 Daily for 30 Days Jardiance 25 MG 1 tablet Orally Once a day for 30 day(s) Sertraline HCl 100 MG 1 tablet Orally Once a day Coumadin 4 MG 1 tablet Orally 6 mg Tues 4 mg ROW for 30 day(s) Next Appt Details Provider Name:Gloria Nghia, 5- 02:30:00 PM, [address] [place], [address], Insurance Providers Payer Name Payer Address Payer Phone Insured Name Patient Relati onship to Insured Coverage Start Date Coverage End Date MEDICAID [employer] [address] [facility] [address] [place] MEDICARE Part A and B [address] [facility] [address] [phone] [place] self
--- OUTSIDE RECORDS SUMMARY | 2020-11-21 06:41 | CCD ---
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 Active 075763586 Problem Diabetes mellitus, type 2 E11.9 Active 103930 06 Problem SLE (systemic lupus erythematosus) M32.9 Activ e 88891388 Problem Hyperlipidemia E78.5 Active 14119506 Problem Fe deficiency anemia D50.9 Active 60695555 Problem Insomnia G47.00 Active 944294361 Problem Essential hypertension I10 Active 82996421 Problem 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 Active 240773214 Problem senior care current use of anticoagulant Z79.01 A ctive 647111003 Problem Seasonal allergic rhinitis, unspecified trigger J3 0.2 Active 464963397 Problem Chronic kidney disease (CKD), stage 3 (moderate) N 18.3 Active 719907565 Problem Major depressive disorder F32.9 Active 912014 000 Problem Encounter for therapeutic drug level monitoring Z5 1.81 Active 916485128 Problem Gastroesophageal reflux disease K21.9 Active 412527747 Problem Chronic kidney disease, stage 3 N18.3 Active 346383233 Problem Paroxysmal atrial fibrillation I48.0 Active 2 43541586 Problem Tubulovillous adenoma of colon D12.6 Active 4 19576696 Problem Iron deficiency anemia, unspecified iron deficiency an emia type D50.9 Active 66052073 ALLERGIES Allergen (clinical drug ingredient) Drug/Non Drug Allergy do cumented on EMR Reaction Allergy Type Onset Date Status lisinopril Lisinopril([facility] Code:[address]-43) unknown Drug Allergy Active ENCOUNTERS from 1955 to 2020-10-06 Encounter Location Date Provider Diagnosis [facility] [place] [address] Oct, 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 (ICD-10 - Z79.01) Oct, Hemiplegia of dominant side following cerebrovascular accident (CVA) (ICD-10 - I69.359) Oct, Encounter for therapeutic drug level mon itoring (ICD-10 - Z51.81) PLAN OF TREATMENT Medication Medication Name Sig Start Date Stop Date Warfarin Sodium 7.5 MG 1 tablet tues/Thurs Orally O nce a day Tues/thurs for 30 day(s) Sep, Warfarin Sodium 5 MG 1 tablet Orally Once a day for 30 day(s) Oct, Atorvastatin Calcium 40 MG 1 tablet Orally Once a day for 30 Day s Treatment Notes Test Name Order Date PT-INR 2020-10-06 Future Test Test Name Order Date PT-INR [id number] Next Appt Details Provider Name:Gloria Lindoyane, 03-12 02:30:00 PM, [address] [place], [address], Insurance Providers Payer Name Payer Address Payer Phone Insured Name Patient Relati onship to Insured Coverage Start Date Coverage End Date MEDICARE Part A and B [address] [facility] [address] [phone] [place] MEDICAID [employer] [address] [facility] [address] [place]
--- OUTSIDE RECORDS SUMMARY | 2020-11-21 06:41 | CCD ---
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 Active 279397575 Problem Diabetes mellitus, type 2 E11.9 Active 520760 06 Problem SLE (systemic lupus erythematosus) M32.9 Activ e 46784221 Problem Hyperlipidemia E78.5 Active 32417996 Problem Fe deficiency anemia D50.9 Active 00512949 Problem Insomnia G47.00 Active 122810389 Problem Essential hypertension I10 Active 62388329 Problem 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 Active 648839677 Problem senior living current use of anticoagulant Z79.01 A ctive 283590898 Problem Seasonal allergic rhinitis, unspecified trigger J3 0.2 Active 920245820 Problem Chronic kidney disease (CKD), stage 3 (moderate) N 18.3 Active 244156617 Problem Major depressive disorder F32.9 Active 123284 000 Problem Encounter for therapeutic drug level monitoring Z5 1.81 Active 439209216 Problem Gastroesophageal reflux disease K21.9 Active 700551041 Problem Chronic kidney disease, stage 3 N18.3 Active 630978984 Problem Paroxysmal atrial fibrillation I48.0 Active 2 73913780 Problem Tubulovillous adenoma of colon D12.6 Active 4 00416754 Problem Iron deficiency anemia, unspecified iron deficiency an emia type D50.9 Active 26244260 ALLERGIES Allergen (clinical drug ingredient) Drug/Non Drug Allergy do cumented on EMR Reaction Allergy Type Onset Date Status lisinopril Lisinopril([facility] Code:[address]-85) unknown Drug Allergy Active ENCOUNTERS from 1955 to 2020-09-21 Encounter Location Date Provider Diagnosis [facility] [place] [address] Sep, Gloria Agrawal Hemiplegia of dominant side following ce rebrovascular accident (CVA) I69.359 ; Therapeutic drug monitoring Z51.81 and senior living current use of anticoagulant Z79.01 IMMUNIZATIONS Vaccine Route Administration Date Status Influenza [...] School Language: Question Answer Notes Languages spoken: Irish Confucianist: Question Answer Notes Confucianist No holiness beliefs that would impact health care. Sexual [...] Eucerin - as directed Externally Ac tive Tylenol PM Extra Strength 500-25 MG 2 tablet at bedti me Orally before bedtime as needed for sleep for 30 days May, Active Flonase Allergy Relief 50 MCG/ACT 1 spray in each nost ril Nasally Once a day for 30 Days Active Hydroxychloroquine Sulfate 200 MG 1 tablet [...] for 30 Days Active BD Ultra-fine Pen [place] 32G 4mm as directed E11.9 Daily for 30 Days Active Acetaminophen 500 MG 1 capsule as needed Orally every 6 hrs Active Atorvastatin Calcium 40 MG 1 tablet Orally Once a day Active Tylenol Extra Strength 500 MG 2 tablet Orally bid for 30 Days Sep, Active Famotidine 20 MG 1 tablet at bedtime as needed Orally Onc e a day for 30 day(s) Active Melatonin 5 MG 1 tablet at [...] Notes Treatment Notes Treatm ent Clinical Notes Sep, Hemiplegia of dominant side following cerebrovascular accident (CVA) (ICD-10 - I69.359) Sep, Therapeutic drug monitoring (ICD-10 - Z51.81) 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, 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 - Z79.01) PLAN OF TREATMENT Medication Medication Name Sig Start Date Stop Date Gabapentin 100 MG 1 capsule Orally three times a day for 30 Days Bengay Greaseless 10-15 % apply to affected right shou lder Externally bid for 30 Days 16 Sep, 2020 Hydroxychloroquine Sulfate 200 MG 1 tablet with food or milk Orally Once a day Melatonin 5 MG 1 tablet at bedtime as needed with food Orally O nce a day Lantus SoloStar 100 UNIT/ML 30 units Subcutaneous Daily for 30 Days 20 Aug, 2020 Telmisartan 20 MG 1 tab Orally Once a day for 30 day(s) Tylenol Extra Strength 500 MG 2 tablet Orally bid for 30 Days 1 8 Sep, 2020 Atorvastatin Calcium 40 MG 1 tablet Orally Once a day Januvia 50 MG 1 tablet Orally Once a day for 30 Days Omeprazole 40 MG 1 capsule Orally Once a day 30 minutes before lunch for 30 day(s) Jardiance 25 MG 1 tablet Orally Once a day for 30 day(s) Coumadin 4 MG 1 tablet Orally 6 mg Tues 4 mg ROW for 30 day(s) BD Ultra-fine Pen [place] 32G 4mm as directed E11.9 Daily for 30 Days Sertraline HCl 100 MG 1 tablet Orally Once a day Treatment Notes Test Name Order Date PT-INR 2020-09-21 Future Test Test Name Order Date PT-INR [id number] Next Appt Details Provider Name:Gloria Agrawal, 03-12 02:30:00 PM, [address] [place], [address], Insurance Providers Payer Name Payer Address Payer Phone Insured Name Patient Relati onship to Insured Coverage Start Date Coverage End Date MEDICARE Part A and B [address] [facility] [address] [phone] [place] MEDICAID [employer] [address] [facility] [id number] [place]
--- OUTSIDE RECORDS SUMMARY | 2020-11-21 06:41 | CCD ---
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 Active 218997366 Problem Diabetes mellitus, type 2 E11.9 Active 753610 06 Problem SLE (systemic lupus erythematosus) M32.9 Activ e 36451026 Problem Hyperlipidemia E78.5 Active 79365489 Problem Fe deficiency anemia D50.9 Active 97387066 Problem Insomnia G47.00 Active 972101779 Problem Essential hypertension I10 Active 01614374 Problem 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 Active 703536138 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 A ctive 675050076 Problem Seasonal allergic rhinitis, unspecified trigger J3 0.2 Active 559478891 Problem Chronic kidney disease (CKD), stage 3 (moderate) N 18.3 Active 753027582 Problem Major depressive disorder F32.9 Active 884827 000 Problem Encounter for therapeutic drug level monitoring Z5 1.81 Active 000899354 Problem Gastroesophageal reflux disease K21.9 Active 876080265 Problem Chronic kidney disease, stage 3 N18.3 Active 999654758 Problem Paroxysmal atrial fibrillation I48.0 Active 2 55214890 Problem Tubulovillous adenoma of colon D12.6 Active 4 15764812 Problem Iron deficiency anemia, unspecified iron deficiency an emia type D50.9 Active 42169873 ALLERGIES Allergen (clinical drug ingredient) Drug/Non Drug Allergy do cumented on EMR Reaction Allergy Type Onset Date Status lisinopril Lisinopril([facility] Code:[address]-31) unknown Drug Allergy Active ENCOUNTERS from 1955 to 2020-10-12 Encounter Location Date Provider Diagnosis [facility] [address] [place] [address] Oct, Gloria Agrawal Fe deficiency anemia D50.9 IMMUNIZATIONS Vaccine Route Administration Date Status Influenza [...] School Language: Question Answer Notes Languages spoken: Kittitian Hinduism: Question Answer Notes Hinduism No congregational beliefs that would impact health care. Sexual [...] D ays Aug, Unknown BD Ultra-fine Pen [place] 32G 4mm as directed E11.9 Daily for [...] tablet tues/Thurs Orally O nce a day Tu/th for 30 day(s) Sep, Active Omeprazole 40 [...] Information RESULTS No Results REASON FOR VISIT Iron MEDICAL (GENERAL) HISTORY Type Description Date Medical [...] Treatment Notes Treatm ent Clinical Notes Oct, Fe deficiency anemia (ICD-10 - D50.9) PLAN OF TREATMENT Medication Medication Name Sig [...] s Warfarin Sodium 7.5 MG 1 tablet /Thurs Orally O nce a day Tu/th for 30 day(s) Sep, Ferrous Sulfate 325 (65 Fe) MG 1 tablet Orally Once a day for 30 Days Warfarin Sodium 5 MG 1 tablet Orally Sun, Thu, Thu, Thursday f or 30 day(s) Oct, Jardiance 25 MG 1 tablet Orally Once a day for 90 day(s) Next Appt Details Provider Name:Gloria Agrawal 11-07 01:00:00 PM, [address] [place] [address], [phone], Provider Name:Gloria Agrawal - 02:30:00 PM, [address] [place] [address], [phone], Insurance Providers Payer Name Payer Address Payer Phone Insured Name Patient Relati onship to Insured Coverage Start Date Coverage End Date MEDICARE Part A and B [address] [place] [phone] GRAY JOHNSON MEDICAID [employer] [address] [facility] [address] GRAY JOHNSON self
--- OUTSIDE RECORDS SUMMARY | 2020-11-21 06:41 | CCD ---
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 Active 710956003 Problem Diabetes mellitus, type 2 E11.9 Active 458212 06 Problem SLE (systemic lupus erythematosus) M32.9 Activ e 18043107 Problem Hyperlipidemia E78.5 Active 26095327 Problem Fe deficiency anemia D50.9 Active 07726434 Problem Insomnia G47.00 Active 609639703 Problem Essential hypertension I10 Active 62165078 Problem 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 Active 022170035 Problem halfway current use of anticoagulant Z79.01 A ctive 243273519 Problem Seasonal allergic rhinitis, unspecified trigger J3 0.2 Active 278317982 Problem Chronic kidney disease (CKD), stage 3 (moderate) N 18.3 Active 201332398 Problem Major depressive disorder F32.9 Active 328904 000 Problem Encounter for therapeutic drug level monitoring Z5 1.81 Active 207920133 Problem Gastroesophageal reflux disease K21.9 Active 756257947 Problem Chronic kidney disease, stage 3 N18.3 Active 523437008 Problem Paroxysmal atrial fibrillation I48.0 Active 2 73015544 Problem Tubulovillous adenoma of colon D12.6 Active 4 31299932 Problem Iron deficiency anemia, unspecified iron deficiency an emia type D50.9 Active 32007772 ALLERGIES Allergen (clinical drug ingredient) Drug/Non Drug Allergy do cumented on EMR Reaction Allergy Type Onset Date Status lisinopril Lisinopril([facility] Code:[address]-89) unknown Drug Allergy Active ENCOUNTERS from 1955 to 2020-10-09 Encounter Location Date Provider Diagnosis [facility] [address] [place] [address] Oct, Gloria Agrawal IMMUNIZATIONS Vaccine Route Administration [...] School Language: Question Answer Notes Languages spoken: [place] Citizen Worship: Question Answer Notes Worship No orthodoxy beliefs that would impact health care. Sexual [...] D ays Aug, Unknown BD Ultra-fine Pen [place] 32G 4mm as directed E11.9 Daily for 30 Days Unknown Warfarin Sodium 5 MG 1 tablet Orally Sun, Thu, Wed, Thursday for 3 0 day(s) Oct, Active Warfarin Sodium 7.5 MG 1 tablet tu/ Orally O nce a day / for [...] RESULTS No Results REASON FOR VISIT coumadin clarification MEDICAL (GENERAL) HISTORY Type Description Date Medical [...] Oct, Warfarin Sodium 7.5 MG 1 tablet / Orally O nce a day Tu/th for 30 day(s) Sep, Atorvastatin Calcium 40 MG 1 tablet Orally Once a day for 30 Day s Next Appt Details Provider Name:Gloria Agrawal 1-06 01:00:00 PM, [address] [place] [address], [phone], Provider Name:Gloria Agrawal 5-11 02:30:00 PM, [address] [place] [address], [phone], Insurance Providers Payer Name Payer Address Payer Phone Insured Name Patient Relati onship to Insured Coverage Start Date Coverage End Date MEDICAID [employer] [address] [facility] [address] GARY BROWN MEDICARE Part A and B [address] [facility] [address] GRAY BROWN
--- OUTSIDE RECORDS SUMMARY | 2020-11-21 06:41 | CCD ---
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 Active 486640422 Problem Diabetes mellitus, type 2 E11.9 Active 632388 06 Problem SLE (systemic lupus erythematosus) M32.9 Activ e 80280002 Problem Hyperlipidemia E78.5 Active 98553797 Problem Fe deficiency anemia D50.9 Active 50580128 Problem Insomnia G47.00 Active 098588325 Problem Essential hypertension I10 Active 51116840 Problem 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 Active 200929772 Problem longterm current use of anticoagulant Z79.01 A ctive 281138547 Problem Seasonal allergic rhinitis, unspecified trigger J3 0.2 Active 198901279 Problem Chronic kidney disease (CKD), stage 3 (moderate) N 18.3 Active 464519757 Problem Major depressive disorder F32.9 Active 530144 000 Problem Encounter for therapeutic drug level monitoring Z5 1.81 Active 581273632 Problem Gastroesophageal reflux disease K21.9 Active 147884701 Problem Chronic kidney disease, stage 3 N18.3 Active 776017270 Problem Paroxysmal atrial fibrillation I48.0 Active 2 87931848 Problem Tubulovillous adenoma of colon D12.6 Active 4 12888555 Problem Iron deficiency anemia, unspecified iron deficiency an emia type D50.9 Active 31335989 ALLERGIES Allergen (clinical drug ingredient) Drug/Non Drug Allergy do cumented on EMR Reaction Allergy Type Onset Date Status lisinopril Lisinopril([facility] Code:[address]-50) unknown Drug Allergy Active ENCOUNTERS from 1955 to 2020-10-06 Encounter Location Date Provider Diagnosis [facility] [address] [facility] [place] [address] Oct, Gloria Agrawal IMMUNIZATIONS Vaccine Route Administration [...] School Language: Question Answer Notes Languages spoken: Swedish Evangelical: Question Answer Notes Evangelical No hinduism beliefs that would impact health care. Sexual [...] D ays Aug, Unknown BD Ultra-fine Pen [place] 32G 4mm as directed E11.9 Daily for 30 Days Unknown Warfarin Sodium 7.5 MG 1 tablet tues/Thurs Orally O nce a day Tues/thurs for 30 day(s) Sep, Active Warfarin Sodium [...] Information RESULTS No Results REASON FOR VISIT atorvastatin MEDICAL (GENERAL) HISTORY Type Description Date Medical [...] Day s Next Appt Details Provider Name:Gloria Kennedyangella, 1-0 5-11 02:30:00 PM, [address] [place], [address], Insurance Providers Payer Name Payer Address Payer Phone Insured Name Patient Relati onship to Insured Coverage Start Date Coverage End Date MEDICAID [employer] [address] [facility] [id number] GRAY BRWON MEDICARE Part A and B [address] [facility] [phone] GRAY BROWN
--- OUTSIDE RECORDS SUMMARY | 2020-11-21 06:41 | CCD ---
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 Active 654438939 Problem Diabetes mellitus, type 2 E11.9 Active 891950 06 Problem SLE (systemic lupus erythematosus) M32.9 Activ e 56274878 Problem Hyperlipidemia E78.5 Active 18235300 Problem Fe deficiency anemia D50.9 Active 57429675 Problem Insomnia G47.00 Active 296424023 Problem Essential hypertension I10 Active 14500746 Problem 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 Active 922072262 Problem custodial current use of anticoagulant Z79.01 A ctive 927954107 Problem Seasonal allergic rhinitis, unspecified trigger J3 0.2 Active 680610974 Problem Chronic kidney disease (CKD), stage 3 (moderate) N 18.3 Active 380489722 Problem Major depressive disorder F32.9 Active 711018 000 Problem Encounter for therapeutic drug level monitoring Z5 1.81 Active 303644839 Problem Gastroesophageal reflux disease K21.9 Active 079179738 Problem Chronic kidney disease, stage 3 N18.3 Active 654508210 Problem Paroxysmal atrial fibrillation I48.0 Active 2 29957439 Problem Tubulovillous adenoma of colon D12.6 Active 4 09892446 Problem Iron deficiency anemia, unspecified iron deficiency an emia type D50.9 Active 12448723 ALLERGIES Allergen (clinical drug ingredient) Drug/Non Drug Allergy do cumented on EMR Reaction Allergy Type Onset Date Status lisinopril Lisinopril([facility] Code:[address]-12) unknown Drug Allergy Active ENCOUNTERS from 1955 to 2020-09-20 Encounter Location Date Provider Diagnosis [facility] [address] [facility] [place] [address] Sep, Gloria Agrawal Diabetes mellitus, type 2 E11.9 ; Essent ial hypertension I10 ; Hemiplegia and hemiparesis f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.351 ; SLE (systemic lupus erythematosus) M32.9 ; Hyperlipidemia E78.5 ; custodial current use of anticoagulant Z79.01 ; Insomnia G47.00 ; Gastroesophageal reflux disease K21.9 ; Fe deficiency anemia D50.9 ; Major depressive disorder F32.9 ; Breast cancer screening Z12.31 ; Cervical cancer screening Z12.4 ; Colon cancer screening Z12.11 ; Chronic right shoulder pain M25.511 and Chronic kidney disease (CKD), stage 3 (moderate) N18.3 IMMUNIZATIONS Vaccine Route Administration Date Status Influenza [...] School Language: Question Answer Notes Languages spoken: Maori Roman Catholic: Question Answer Notes Roman Catholic No zoroastrianism beliefs that would impact health care. Sexual [...] No Information VITAL SIGNS Weight 201 lbs Sep, Height 68 in Sep, BMI 30.56 kg/m2 Sep, Heart Rate 92 /min Sep, Respiratory Rate 16 /min Sep, Temperature 98.6 degrees Fahrenheit Sep, Oximetry 98% Sep, Blood pressure systolic 144 mm Hg Sep, Blood pressure diastolic 78 mm Hg Sep, MEDICATIONS Medication SIG (Take, Route, Frequency, Duration) [...] for 30 Days Active BD Ultra-fine Pen [place] 32G 4mm as directed E11.9 Daily for [...] day / for 30 day(s) Sep, Active Gabapentin 100 MG 1 capsule Orally three times a day for 30 Days Active Jardiance 25 MG 1 tablet Orally Once a day for 90 day(s) Active Bengay Greaseless 10-15 % apply to affected right shou lder Externally bid for 30 Days Sep, Active PROCEDURES No Information RESULTS No Results REASON FOR VISIT 6 month f/u MEDICAL (GENERAL) HISTORY Type Description Date Medical [...] Treatment Notes Treatm ent Clinical Notes Sep, Diabetes mellitus, type 2 (ICD-10 - E11.9) 09/2020 Increase lantus to 30 units, jardiance 25mg, Januvia 50mg 08/2020 7.8 HBSs 500 given CKD decline renal function med adjusted. Insurance not covering Tresiba. lantus, 08/2020 stop metformin (GLADYS) REJI referral in place for Dr. Jorge 09/2020 8.4 08/2020 7.8 04/2020 4.8 06/2019 5.2 stop stagliptin, decrease met 750 Daily, continue jardiance 25 mg 03/2019 jard 25 QD, sitagliptin 50mg QD, Met 1000mg/daily 01/2019 Start jardiance, sitagliptin, continue Met 1000 daily (stop glipizide) 12/2018 Alc 6.8, Insulin 95.5, STEFANO 24 16 Sep, 2020 Essential hypertension (ICD-10 - I10) 09/2020 Renal US: No RAYMON 03/2019 Tolerating CTD 12.5, Telm 20 mg Stable HBPs therefore continue 01/2019 reviewed [facility] been on HCT, Spirno for HTN. no evidence of CHF (start ARB given DM, CTD) 06/2019 16, 1.1, k 4.4, Mg 2.2 12/2018 1.1, 16, K 4.6, Mg 1.6 16 Sep, 2020 Hemiplegia and 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 (ICD-10 - I69.351) continue use of walker for ambulation 03/22/2019 Meghan is ambulatory. Exhibits weakness or deformity of the foot, ankle and knee and has the potential for functional benefit with orthotic treatment. Meghan has been prefabricated AFO and it is not longer appropriated for her. she presents with a triplanar deformity while wearing the Prefabricated AFO. The condition necessitating the need for the orthosis is expected to exist for more than 6 months wheel chair use walker for ambulation R arm hemiplegia c R leg hemiparesis Independent c [facility] available in [facility] as of 11/2015 patient is continued on coumadin for therapeutic rx of Stroke. No documentation of A-fib. EKG tracing consistently with NSR. 08/2015 EKG: NSR Sep, SLE (systemic lupus erythematosus) (ICD-10 - M32 .9) stable on current regimen 01/2019 DANIEL hep2 negative, C3, C4 unremarkable. therefore consult to Rheum for consult opinion +/- to continue Hydroxychloroquine no initial labs/diagnosis records not available. Sep, Hyperlipidemia (ICD-10 - E78.5) continue current regimen 08/2020 89, 58, 128 12/2018 72, 59, 150 16 Sep, 2020 custodial current use of anticoagulant (ICD-10 - Z79.01) continue coumadin INR therapeutic range Sep, Insomnia (ICD-10 - G47.00) +/- effect on melatonin Sep, Gastroesophageal reflux disease (ICD-10 - K21.9) omepr 40mg, Sep, Fe deficiency anemia (ICD-10 - D50.9) stable on current regimen stop fe given constipation 06/2019 12.5 MCV 82.5, Ret 1.2 12/2018 12, MCV 79 , Ferr 198, TIBC 289 Sep, Major depressive disorder (ICD-10 - F32.9) stable mood Sep, Breast cancer screening (ICD-10 - Z12.31) 09/2020 order given 06/2019 Bi-rads 1` 05/2016 Bi-RADS - 1 Sep, Cervical cancer screening (ICD-10 - Z12.4) 05/2019 HPV/Pap: negative Sep, Colon cancer screening (ICD-10 - Z12.11) given pathology report patient due for 3month surveilllance scope. therefore referral to Dr. Sellers given ongoing RLQ pain/diarrhea although CTabd/pelvis unrevealing 04/2020: Proximal ascending colon, tubulovillous adenoma, biopsy/incomplete resection:Multiple fragments of villous and tubulovillous adenoma. 12/2018 Tubulovillous adneoma. repeat 03/[address] Church Sep, Chronic right shoulder pain (ICD-10 - M25.511) ongoing R shoulder blade pain add Bengay Favor R shoulder strain given RUE hemiplegia s/p Stroke defes further PT/OT 09/2018 thoracic spine x-ray: Normal 12/2015 R shoulder x-ray: normal Sep, Chronic kidney disease (CKD), stage 3 (m oderate) (ICD-10 - N18.3) 09/2020 Renal US: No RAYMON 08/2020 1.4/ 38 GFR 38 04/2020 1.3/ 40 GFR 40 03/2020 1.020 GFR 54 PLAN OF TREATMENT Medication Medication Name Sig [...] units Subcutaneous Daily for 30 Days Aug, Telmisartan 20 MG 1 tab Orally Once [...] ROW for 30 day(s) BD Ultra-fine Pen [place] 32G 4mm as directed E11.9 Daily for 30 Days Sertraline HCl 100 MG 1 tablet Orally Once a day Treatment Notes Assessment Notes Clinical Notes Chronic right shoulder pain ongoing R sh oulder blade pain add BengayFavor R shoulder strain given RUE hemiplegia s/p Strokedefes further PT/OT09/2018 thoracic spine x-ray: Normal12/2015 R shoulder x-ray: normal Diabetes mellitus, type 2 09/2020 Increa se lantus to 30 units, jardiance 25mg, Januvia 50mg08/2020 7.8 HBSs 500 given CKD decline renal function med adjusted. Insurance not covering Tresiba. lantus,08/2020 stop metformin (GLADYS)REJI referral in place for Dr. Jorge09/2020 8.410 7. 4. 5.2 stop stagliptin, decrease met 750 Daily, continue jardiance 25 mg03/2019 jard 25 QD, sitagliptin 50mg QD, Met 1000mg/daily01/2019 Start jardiance, sitagliptin, continue Met 1000 daily (stop glipizide)12/2018 Alc 6.8, Insulin 95.5, STEFANO 24 Colon cancer screening given pathology r eport patient due for 3month surveilllance scope. therefore referral to Dr. Sellers given ongoing RLQ pain/diarrheaalthough CTabd/pelvis unrevealing04/2020: Proximal ascending colon, tubulovillous adenoma, biopsy/incomplete resection:Multiple fragments of villous and tubulovillous adenoma.12/2018 Tubulovillous adneoma. repeat 03/[address] Church Essential hypertension 09/2020 Renal US: No RAS03/2019 Tolerating CTD 12.5, Telm 20 mg Stable HBPs therefore continue01/2019 reviewed [facility] been on HCT, Spirno for HTN. no evidence of CHF (start ARB given DM, CTD)06/2019 16, 1.1, k 4.4, Mg 2. 1.1, 16, K 4.6, Mg 1.6 Hemiplegia and hemiparesis following cer ebral infarction affecting right dominant side continue use of walker for a mbulation03/22/2019 Meghan is ambulatory. Exhibits weakness or deformity of the foot, ankle and knee and has the potential for functional benefit with orthotic treatment. Meghan has been prefabricated AFO and it is not longer appropriated for her. she presents with a triplanar deformity while wearing the Prefabricated AFO. The condition necessitating the need for the orthosis is expected to exist for more than 6 monthswheel chair usewalker for ambulationR arm hemiplegia c R leg hemiparesisIndependent c [facility] as of 11/2015 patient is continued on coumadin for therapeutic rx of Stroke.No documentation of A-fib. EKG tracing consistently with NSR.08/2015 EKG: NSR Chronic kidney disease (CKD), stage 3 (moderate) 09/2020 Renal US: No RAS10 1.4/ 38 GFR 386 1.3/ 40 GFR 405/2019 1.020 GFR 54 SLE (systemic lupus erythematosus) stabl e on current regimen01/2019 DANIEL hep2 negative, C3, C4 unremarkable. therefore consult to Rheum for consult opinion +/- to continue Hydroxychloroquineno initial labs/diagnosis records not availabl e. 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 12, MCV 79 , Ferr 198, TIBC 289 Major depressive disorder stable mood Treatment Notes Test Name Order Date PLZ Digital Mammo Screening Bilat 2020-09-20 Future Test Test Name Order Date Comprehensive Metabolic Profile (CMP) [id number] MICROALBUMIN RANDOM [id number] HEMOGLOBIN A1c [id number] MAGNESIUM LEVEL [id number] LIPID PANEL (CARDIAC RISK) [id number] Reticulocyte Count Sysmex [id number] FREE T4 & TSH PANEL [id number] Next Appt Details Med eval appt 03/2021 Reason: Provider Name:Gloria Wilsonterell, 03-12 02:30:00 PM, [address] [place], [address], Insurance Providers Payer Name Payer Address Payer Phone Insured Name Patient Relati onship to Insured Coverage Start Date Coverage End Date MEDICARE Part A and B [address] [facility] [id number] MEGHAN BROWN MEDICAID [facility] [address] [facility] [id number] MEGHAN BROWN
--- OUTSIDE RECORDS SUMMARY | 2020-11-21 06:41 | CCD ---
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 Active 858167572 Problem Diabetes mellitus, type 2 E11.9 Active 990828 06 Problem SLE (systemic lupus erythematosus) M32.9 Activ e 03714545 Problem Hyperlipidemia E78.5 Active 15825930 Problem Fe deficiency anemia D50.9 Active 93398308 Problem Insomnia G47.00 Active 629889641 Problem Essential hypertension I10 Active 41039696 Problem 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 Active 027053724 Problem nursing home current use of anticoagulant Z79.01 A ctive 584131122 Problem Seasonal allergic rhinitis, unspecified trigger J3 0.2 Active 674652525 Problem Chronic kidney disease (CKD), stage 3 (moderate) N 18.3 Active 591153338 Problem Major depressive disorder F32.9 Active 659363 000 Problem Encounter for therapeutic drug level monitoring Z5 1.81 Active 584026701 Problem Gastroesophageal reflux disease K21.9 Active 634119505 Problem Chronic kidney disease, stage 3 N18.3 Active 276712272 Problem Paroxysmal atrial fibrillation I48.0 Active 2 53091901 Problem Tubulovillous adenoma of colon D12.6 Active 4 37730512 Problem Iron deficiency anemia, unspecified iron deficiency an emia type D50.9 Active 31124082 ALLERGIES Allergen (clinical drug ingredient) Drug/Non Drug Allergy do cumented on EMR Reaction Allergy Type Onset Date Status lisinopril Lisinopril([facility] Code:[address]-36) unknown Drug Allergy Active ENCOUNTERS from 1955 to 2020-10-08 Encounter Location Date Provider Diagnosis [facility] [address] [place] [address] Oct, Gloria Agrawal IMMUNIZATIONS Vaccine Route Administration [...] School Language: Question Answer Notes Languages spoken: Moldovan Baptist: Question Answer Notes Baptist No holiness beliefs that would impact health [...] D ays Aug, Unknown BD Ultra-fine Pen [place] 32G 4mm as directed E11.9 Daily for [...] Information RESULTS No Results REASON FOR VISIT atorva needs refill MEDICAL (GENERAL) HISTORY Type Description Date Medical [...] Oct, Warfarin Sodium 7.5 MG 1 tablet tues/Th Orally O nce a day Tues/th for 30 day(s) Sep, Atorvastatin Calcium 40 MG 1 tablet Orally Once a day for 30 Day s Next Appt Details Provider Name:Gloria Kennedyangella, 2020-0 5-11 02:30:00 PM, [address] [place], [address], Insurance Providers Payer Name Payer Address Payer Phone Insured Name Patient Relati onship to Insured Coverage Start Date Coverage End Date MEDICAID [employer] [address] [facility] [id number] [place] MEDICARE Part A and B [address] [facility] [address] G[place] BROWN
--- OUTSIDE RECORDS SUMMARY | 2020-11-21 06:41 | CCD ---
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 Active 559798295 Problem Diabetes mellitus, type 2 E11.9 Active 182803 06 Problem SLE (systemic lupus erythematosus) M32.9 Activ e 54096244 Problem Hyperlipidemia E78.5 Active 80351378 Problem Fe deficiency anemia D50.9 Active 63114143 Problem Insomnia G47.00 Active 444457924 Problem Essential hypertension I10 Active 28309021 Problem 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 Active 338328805 Problem intermediate current use of anticoagulant Z79.01 A ctive 501486286 Problem Seasonal allergic rhinitis, unspecified trigger J3 0.2 Active 837332600 Problem Chronic kidney disease (CKD), stage 3 (moderate) N 18.3 Active 403650797 Problem Major depressive disorder F32.9 Active 481386 000 Problem Encounter for therapeutic drug level monitoring Z5 1.81 Active 049128540 Problem Gastroesophageal reflux disease K21.9 Active 881013978 Problem Chronic kidney disease, stage 3 N18.3 Active 323105546 Problem Paroxysmal atrial fibrillation I48.0 Active 2 87577333 Problem Tubulovillous adenoma of colon D12.6 Active 4 54716128 Problem Iron deficiency anemia, unspecified iron deficiency an emia type D50.9 Active 45179637 ALLERGIES Allergen (clinical drug ingredient) Drug/Non Drug Allergy do cumented on EMR Reaction Allergy Type Onset Date Status lisinopril Lisinopril([facility] Code:[address]-63) unknown Drug Allergy Active ENCOUNTERS from 1955 to 2020-09-19 Encounter Location Date Provider Diagnosis [facility] [place] [address] Sep, Gloria Agrawal IMMUNIZATIONS Vaccine Route Administration [...] School Language: Question Answer Notes Languages spoken: Colombian Sikhism: Question Answer Notes Sikhism No muslim beliefs that would impact health care. Sexual [...] for 30 Days Active BD Ultra-fine Pen [place] 32G 4mm as directed E11.9 Daily for [...] RESULTS No Results REASON FOR VISIT Tylenol ES MEDICAL (GENERAL) HISTORY Type Description Date Medical [...] tablet Orally bid for 30 Days Sep, Atorvastatin Calcium 40 MG 1 tablet [...] ROW for 30 day(s) BD Ultra-fine Pen [place] 32G 4mm as directed E11.9 Daily for 30 Days Sertraline HCl 100 MG 1 tablet Orally Once a day Next Appt Details Provider Name:Gloria Agrawal, 2020- 5-11 02:30:00 PM, [address] [place], [address], Insurance Providers Payer Name Payer Address Payer Phone Insured Name Patient Relati onship to Insured Coverage Start Date Coverage End Date MEDICARE Part A and B [address] [facility] [address] [phone] [facility] MEDICAID [employer] [address] [facility] [address] G[place] self
--- OUTSIDE RECORDS SUMMARY | 2020-11-21 06:42 | CCD ---
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 Active 373949617 Problem Diabetes mellitus, type 2 E11.9 Active 028707 06 Problem SLE (systemic lupus erythematosus) M32.9 Activ e 28146240 Problem Hyperlipidemia E78.5 Active 95022139 Problem Fe deficiency anemia D50.9 Active 94263944 Problem Insomnia G47.00 Active 121981454 Problem Essential hypertension I10 Active 45666681 Problem 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 Active 721661721 Problem senior care current use of anticoagulant Z79.01 A ctive 240513459 Problem Seasonal allergic rhinitis, unspecified trigger J3 0.2 Active 319407608 Problem Chronic kidney disease (CKD), stage 3 (moderate) N 18.3 Active 553417932 Problem Major depressive disorder F32.9 Active 652423 000 Problem Encounter for therapeutic drug level monitoring Z5 1.81 Active 633209760 Problem Gastroesophageal reflux disease K21.9 Active 524217729 Problem Chronic kidney disease, stage 3 N18.3 Active 123077191 Problem Paroxysmal atrial fibrillation I48.0 Active 2 32482754 Problem Tubulovillous adenoma of colon D12.6 Active 4 61778459 Problem Iron deficiency anemia, unspecified iron deficiency an emia type D50.9 Active 32840637 ALLERGIES Allergen (clinical drug ingredient) Drug/Non Drug Allergy do cumented on EMR Reaction Allergy Type Onset Date Status lisinopril Lisinopril([facility] Code:[address]-60) unknown Drug Allergy Active ENCOUNTERS from 1955 to 2020-08-22 Encounter Location Date Provider Diagnosis [facility] Edgar [facility] [place] [address] Aug, Gloria Agrawal IMMUNIZATIONS Vaccine Route Administration Date [...] School Language: Question Answer Notes Languages spoken: [place] Mosque: Question Answer Notes Mosque No zoroastrianism beliefs that would impact health [...] MEDICATIONS Medication SIG (Take, Route, Frequency, Duration) Start Date En d Date Status Lantus SoloStar 100 UNIT/ML 20 units Subcutaneous Daily for 30 Days Aug, Active Milk of Magnesia 400 MG/5ML 5 ml at least 4 hours betw een doses as needed Orally Four times a day Active Atorvastatin Calcium 40 MG 1 tablet Orally Once a day Active Acetaminophen 500 MG 1 capsule as needed Orally every 6 hrs Active Gabapentin 100 MG 1 capsule Orally three times a day for 30 Days Active Januvia 50 MG 1 tablet Orally Once a day for 30 Days Aug, Active Sertraline HCl 100 MG 1 tablet Orally Once a day for 30 day(s) Active Eucerin - as directed Externally Activ e May Have - extension of santi chair fran sey to extend length for legs _ _ for 999 days March, Active Hydroxychloroquine Sulfate 200 MG as directed Orally Daily Jan, Active BD Ultra-fine Pen [place] 32G 4mm as directed E11.9 Daily fo r 30 Days Aug, Active Melatonin 5 MG 1 tablet at bedtime as needed with food Orally Once a day Active Omeprazole 40 MG 1 capsule Orally Once a day 30 minutes before lunch for 30 day(s) Active Jardiance 25 MG 1 tablet Orally Once a day for 30 Days Active Ferrous Sulfate 325 (65 Fe) MG 1 tablet Orally Once a day Active Ferrous Sulfate 325 (65 Fe) MG 1 tablet Orally Once a day Active Gabapentin 300 MG 1 cap Oral three times daily for 30 days Active Chlorthalidone 25 MG 1/2 tab Orally every morning for 90 day(s) Active Hydroxychloroquine Sulfate 200 MG 1 tablet with food or milk Orally Once a day Active MiraLax - 1 packet mixed with 8 ounces of fluid Or ally Once a day for 30 day(s) Active Flonase Allergy Relief 50 MCG/ACT 1 spray in each nost ril Nasally Once a day for 30 Days Active Metformin HCl 500 MG 1 tab Orally bid for 30 Days Active Tylenol PM Extra Strength 500-25 MG 2 tablet at bedti me Orally before bedtime as needed for sleep for 30 days May, Active Coumadin 4 MG 1 tablet Orally 6 mg Tues 4 mg ROW Active Atorvastatin Calcium 40 MG 1 tablet Orally Once a day for 30 Days Active Telmisartan 20 MG 1 tab Orally Once a day for 30 day(s) Active Sertraline HCl 100 MG 1 tablet Orally Once a day Active Famotidine 20 MG 1 tablet at bedtime as needed Orally Onc e a day for 30 day(s) Active PROCEDURES No Information RESULTS No Results REASON FOR VISIT Medications MEDICAL (GENERAL) HISTORY Type Description Date Medical [...] Medication Name Sig Start Date Stop Date Telmisartan 20 MG 1 tab Orally Once a day for 30 day(s) Sertraline HCl 100 MG 1 tablet Orally Once a day Omeprazole 40 MG 1 capsule Orally Once a day 30 minutes before lunch for 30 day(s) Januvia 50 MG 1 tablet Orally Once a day for 30 Days Aug, 020 Coumadin 4 MG 1 tablet Orally 6 mg Tues 4 mg ROW BD Ultra-fine Pen [place] 32G 4mm as directed E11.9 Daily fo r 30 Days Aug, Hydroxychloroquine Sulfate 200 MG 1 tablet with food or milk Orally Once a day Gabapentin 100 MG 1 capsule Orally three times a day for 30 Days Ferrous Sulfate 325 (65 Fe) MG 1 tablet Orally Once a day Melatonin 5 MG 1 tablet at bedtime as needed with food Orally O nce a day Lantus SoloStar 100 UNIT/ML 20 units Subcutaneous Daily for 30 Days Aug, Atorvastatin Calcium 40 MG 1 tablet Orally Once a day Next Appt Details Provider Name:Gloria Agrawal 2019-11 11:00:00 AM, [address] [place], [address], Insurance Providers Payer Name Payer Address Payer Phone Insured Name Patient Relati onship to Insured Coverage Start Date Coverage End Date MEDICAID [employer] [place] [address] [facility] [id number] [phone] [place] MEDICARE Part A and B [address] [facility] [phone] G[place]
--- OUTSIDE RECORDS SUMMARY | 2020-11-21 06:42 | CCD ---
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 Active 704755554 Problem Diabetes mellitus, type 2 E11.9 Active 484058 06 Problem SLE (systemic lupus erythematosus) M32.9 Activ e 37904676 Problem Hyperlipidemia E78.5 Active 22746536 Problem Fe deficiency anemia D50.9 Active 95295765 Problem Insomnia G47.00 Active 233420615 Problem Essential hypertension I10 Active 96563213 Problem 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 Active 441386572 Problem long-term current use of anticoagulant Z79.01 A ctive 990848827 Problem Seasonal allergic rhinitis, unspecified trigger J3 0.2 Active 806828218 Problem Chronic kidney disease (CKD), stage 3 (moderate) N 18.3 Active 622268576 Problem Major depressive disorder F32.9 Active 098964 000 Problem Encounter for therapeutic drug level monitoring Z5 1.81 Active 082003563 Problem Gastroesophageal reflux disease K21.9 Active 341889698 Problem Chronic kidney disease, stage 3 N18.3 Active 724192437 Problem Paroxysmal atrial fibrillation I48.0 Active 2 20147168 Problem Tubulovillous adenoma of colon D12.6 Active 4 32329543 Problem Iron deficiency anemia, unspecified iron deficiency an emia type D50.9 Active 11046874 ALLERGIES Allergen (clinical drug ingredient) Drug/Non Drug Allergy do cumented on EMR Reaction Allergy Type Onset Date Status lisinopril Lisinopril([facility] Code:[address]-52) unknown Drug Allergy Active ENCOUNTERS from 1955 to 2020-08-25 Encounter Location Date Provider Diagnosis [facility] Edgar [facility] [place] [address] Aug, Gloria Agrawal Diabetes mellitus, type 2 E11.9 ; Diarrh ea, unspecified R19.7 ; Essential hypertension I10 ; Hemiplegia and hemiparesis f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.351 ; SLE (systemic lupus erythematosus) M32.9 ; Hyperlipidemia E78.5 ; long-term current use of anticoagulant Z79.01 ; Insomnia [...] School Language: Question Answer Notes Languages spoken: Anguillan Buddhism: Question Answer Notes Buddhism No scientologist beliefs that would impact health care. Sexual [...] FOR REFERRAL No Information VITAL SIGNS Weight 197.8 lbs Aug, Height 68 in Aug, BMI 30.07 kg/m2 Aug, Heart Rate 95 /min Aug, Respiratory Rate 18 /min Aug, Temperature 97.1 degrees Fahrenheit Aug, Oximetry 98 Aug, Blood pressure systolic 124 mm Hg Aug, Blood pressure diastolic 74 mm Hg Aug, MEDICATIONS Medication SIG (Take, Route, Frequency, Duration) [...] Eucerin - as directed Externally Activ e March Have - extension of santi chair fran trivedi to extend length for legs _ _ for 999 days March, Active Hydroxychloroquine Sulfate 200 MG as directed Orally Daily Jan, Active BD Ultra-fine Pen [place] 32G 4mm as directed E11.9 Daily fo [...] Information RESULTS No Results REASON FOR VISIT [facility] blood sugars MEDICAL (GENERAL) HISTORY Type Description Date Medical [...] STATUS No Information ASSESSMENTS Encounter Date Diagnosis Notes Aug, long-term current use of anticoagulant ( ICD-10 - Z79.01) Aug, Hyperlipidemia (ICD-10 - E78.5) Aug, Gastroesophageal reflux disease (ICD-10 - K21.9) Aug, Insomnia (ICD-10 - G47.00) Aug, Essential hypertension (ICD-10 - I10) Aug, Colon cancer screening (ICD-10 - Z12.11) Aug, Cervical cancer screening (ICD-10 - Z12. 4) Aug, SLE (systemic lupus erythematosus) (ICD- 10 - M32.9) Aug, Chronic kidney disease (CKD), stage 3 (m oderate) (ICD-10 - N18.3) Aug, Hemiplegia and 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 (ICD-10 - I69.351) Aug, Chronic right shoulder pain (ICD-10 - M2 5.511) Aug, Major depressive disorder (ICD-10 - F32. 9) Aug, Fe deficiency anemia (ICD-10 - D50.9) Aug, Diarrhea, unspecified (ICD-10 - R19.7) Aug, Diabetes mellitus, type 2 (ICD-10 - E11. 9) Aug, Breast cancer screening (ICD-10 - Z12.31 ) PLAN OF TREATMENT Medication Medication Name Sig [...] Tues 4 mg ROW BD Ultra-fine Pen [place] 32G 4mm as directed E11.9 Daily fo [...] day Treatment Notes Assessment Notes Clinical Notes Colon cancer screening given pathology r eport patient due for 3month surveilllance scope. therefore referral to Dr. Sellers given ongoing RLQ pain/diarrheaalthough CTabd/pelvis unrevealing04/2020: Proximal ascending colon, tubulovillous adenoma, biopsy/incomplete resection:Multiple fragments of villous and tubulovillous adenoma.12/2018 Tubulovillous adneoma. repeat 03/[address] Church Diabetes mellitus, type 2 08/2020 sudden spike of HBS08/2020 7.8 HBSs 500 given CKD decline renal function med adjusted. start Tresiba 15 units/ DPP4. stop metformin/jardiancecontinue HBS bid c/b in 3 days04/2020 4. 5.2 stop stagliptin, decrease met 750 Daily, continue jardiance 25 mg03/2019 jard 25 QD, sitagliptin 50mg QD, Met 1000mg/daily01/2019 Start jardiance, sitagliptin, continue Met 1000 daily (stop glipizide)12/2018 Alc 6.8, Insulin 95.5, STEFANO 24 Cervical cancer screening 05/2019 HPV/Pap : negative Diarrhea, unspecified obtain GI panel as per prior order08/17/2020 CT/Abd: Bowel diverticulosis without evidence of acute diverticulitis. Possible hepatic steatosis Chronic kidney disease (CKD), stage 3 (moderate) given progressive worsening Kidney impairement obtain Renal USmeds renally dosedavoid NSAIDS/Nephrotoxic agentsfavor Diabetic ydlfqvgkopb63/2020 1.4/ 38 GFR 386 1.3/ 40 GFR 405/2019 1.0/20 GFR 54 Essential hypertension 08/2020 stop CTD given CKD, continue Telmisartan03/2019 Tolerating CTD 12.5, Telm 20 mg Stable HBPs therefore continue01/2019 reviewed [facility] records been on HCT, Spirno for HTN. no evidence of CHF (start ARB given DM, CTD)06/2019 16, 1.1, k 4.4, Mg 2. 1.1, 16, K 4.6, Mg 1.6 Chronic right shoulder pain ongoing R sh oulder blade painFavor R shoulder strain given RUE hemiplegia s/p Strokedefes further PT/OT09/2018 thoracic spine x-ray: Normal12/2015 R shoulder x-ray: normal Hemiplegia and hemiparesis following cer ebral infarction affecting right dominant side 03/22/2019 Meghan is ambulat ory. Exhibits weakness or deformity of the foot, [...] ambulationR arm hemiplegia c [facility] is continued on coumadin for therapeutic rx of Stroke.No documentation of A-fib. EKG tracing consistently with NSR.08/2015 EKG: NSR SLE (systemic lupus erythematosus) stabl e on current regimen01/2019 DANIEL hep2 negative, C3, C4 unremarkable. therefore consult to Rheum for consult opinion +/- to continue Hydroxychloroquineno initial labs/diagnosis records not availabl e. 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 12, MCV 79 , Ferr 198, TIBC 289 Treatment Notes Test Name Order Date [facility] RENAL US WITH RENAL ARTERY DOPPLER 2020-08-25 PLZ Digital Mammo Screening Bilat 2020-08-25 Future Test Test Name Order Date Comprehensive Metabolic Profile (CMP) [id number] Next Appt Details 6 Weeks Reason: Provider Name:Gloria Agrawal 2019-11 11:00:00 AM, [address] [place], [address], Insurance Providers Payer Name Payer Address Payer Phone Insured Name Patient Relati onship to Insured Coverage Start Date Coverage End Date MEDICARE Part A and B [address] [facility] [id number] [phone] [place] MEDICAID [facility] [address] [facility] [id number] [place] BROWN
--- OUTSIDE RECORDS SUMMARY | 2020-11-21 06:42 | CCD ---
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 Active 562012511 Problem Diabetes mellitus, type 2 E11.9 Active 875898 06 Problem SLE (systemic lupus erythematosus) M32.9 Activ e 84986702 Problem Hyperlipidemia E78.5 Active 40243253 Problem Fe deficiency anemia D50.9 Active 05334833 Problem Insomnia G47.00 Active 449560758 Problem Essential hypertension I10 Active 13540948 Problem 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 Active 632631939 Problem intermediate current use of anticoagulant Z79.01 A ctive 251227938 Problem Seasonal allergic rhinitis, unspecified trigger J3 0.2 Active 693370330 Problem Chronic kidney disease (CKD), stage 3 (moderate) N 18.3 Active 907431565 Problem Major depressive disorder F32.9 Active 951303 000 Problem Encounter for therapeutic drug level monitoring Z5 1.81 Active 209307334 Problem Gastroesophageal reflux disease K21.9 Active 803188004 Problem Chronic kidney disease, stage 3 N18.3 Active 203753247 Problem Paroxysmal atrial fibrillation I48.0 Active 2 63132312 Problem Tubulovillous adenoma of colon D12.6 Active 4 84750080 Problem Iron deficiency anemia, unspecified iron deficiency an emia type D50.9 Active 87768586 ALLERGIES Allergen (clinical drug ingredient) Drug/Non Drug Allergy do cumented on EMR Reaction Allergy Type Onset Date Status lisinopril Lisinopril([facility] Code:[address]-45) unknown Drug Allergy Active ENCOUNTERS from 1955 to 2020-08-22 Encounter Location Date Provider Diagnosis [facility] [place] [address] Aug, Gloria Agrawal Paroxysmal atrial fibrillation I48.0 and Encounter for therapeutic drug level monitoring [...] Language: Question Answer Notes Languages spoken: French Baptism: Question Answer Notes Baptism No gnosticist beliefs that would impact health care. Sexual [...] Orally Daily Jan, Active BD Ultra-fine Pen [place] 32G 4mm as directed E11.9 Daily fo [...] Information RESULTS No Results REASON FOR VISIT inr MEDICAL (GENERAL) HISTORY Type Description Date Medical [...] Information ASSESSMENTS Encounter Date Diagnosis Notes Aug, Encounter for therapeutic drug level mon itoring (ICD-10 - Z51.81) Aug, Paroxysmal atrial fibrillation (ICD-10 - I48.0) PLAN OF TREATMENT Medication Medication Name Sig [...] Tues 4 mg ROW BD Ultra-fine Pen [place] 32G 4mm as directed E11.9 Daily fo [...] MG 1 tablet Orally Once a day Future Test Test Name Order Date PT-INR [id number] Next Appt Details Provider Name:Gloria Lindoyane, 2019-11 11:00:00 AM, [address] [place], [address], Insurance Providers Payer Name Payer Address Payer Phone Insured Name Patient Relati onship to Insured Coverage Start Date Coverage End Date MEDICARE Part A and B [address] [facility] [place] [place] [address] G[place] MEDICAID [employer] [address] [facility] [id number] [place]OWN
--- OUTSIDE RECORDS SUMMARY | 2020-11-21 06:42 | CCD ---
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 Active 943121029 Problem Diabetes mellitus, type 2 E11.9 Active 183506 06 Problem SLE (systemic lupus erythematosus) M32.9 Activ e 22003771 Problem Hyperlipidemia E78.5 Active 70464627 Problem Fe deficiency anemia D50.9 Active 93130520 Problem Insomnia G47.00 Active 434950555 Problem Essential hypertension I10 Active 82143447 Problem 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 Active 783346538 Problem assisted current use of anticoagulant Z79.01 A ctive 146252698 Problem Seasonal allergic rhinitis, unspecified trigger J3 0.2 Active 871435094 Problem Chronic kidney disease (CKD), stage 3 (moderate) N 18.3 Active 894827524 Problem Major depressive disorder F32.9 Active 116717 000 Problem Encounter for therapeutic drug level monitoring Z5 1.81 Active 937568075 Problem Gastroesophageal reflux disease K21.9 Active 635509946 Problem Chronic kidney disease, stage 3 N18.3 Active 327114978 Problem Paroxysmal atrial fibrillation I48.0 Active 2 95918790 Problem Tubulovillous adenoma of colon D12.6 Active 4 88126939 Problem Iron deficiency anemia, unspecified iron deficiency an emia type D50.9 Active 91113476 ALLERGIES Allergen (clinical drug ingredient) Drug/Non Drug Allergy do cumented on EMR Reaction Allergy Type Onset Date Status lisinopril Lisinopril([facility] Code:[id number]) unknown Drug Allergy Active ENCOUNTERS from 1955 to 2020-09-12 Encounter Location Date Provider Diagnosis [facility] [place] [address] Sep, 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 Sexual [...] Duration) Start Date En d Date Status Jardiance 25 MG 1 tablet Orally Once a day for 90 day(s) Active Acetaminophen 500 MG 1 capsule as needed Orally every 6 hrs Active Lantus SoloStar 100 UNIT/ML 30 units Subcutaneous Daily for 30 Days Aug, Active MiraLax - 1 packet mixed with 8 ounces of fluid Or ally Once a day for 30 day(s) Active Sertraline HCl 100 MG 1 tablet Orally Once a day for 30 day(s) Active Eucerin - as directed Externally Activ e Warfarin Sodium 7.5 MG 1 tablet tues/Thurs Orally O nce a day Tues/thurs for 30 day(s) 10 Sep, 2020 Active Milk of Magnesia 400 MG/5ML 5 ml at least 4 hours betw een doses as needed Orally Four times a day Active BD Ultra-fine Pen [place] 32G 4mm as directed E11.9 Daily fo r 30 Days Aug, Active Gabapentin 100 MG 1 capsule Orally three times a day for 30 Days Active Januvia 50 MG 1 tablet Orally Once a day for 30 Days Aug, Active May Have - extension of santi chair fran trivedi to extend length for legs _ _ for 999 days March, Active Chlorthalidone 25 MG 1/2 tab Orally every morning for 90 day(s) Active Melatonin 5 MG 1 tablet at bedtime as needed with food Orally Once a day Active Flonase Allergy Relief 50 MCG/ACT 1 spray in each nost ril Nasally Once a day for 30 Days Active Metformin HCl 500 MG 1 tab Orally bid for 30 Days Active Hydroxychloroquine Sulfate 200 MG 1 tablet with food or milk Orally Once a day Active Tylenol PM Extra Strength 500-25 MG 2 tablet at bedti me Orally before bedtime as needed for sleep for 30 days May, Active Ferrous Sulfate 325 (65 Fe) MG 1 tablet Orally Once a day Active Hydroxychloroquine Sulfate 200 MG as directed Orally Daily Jan, Active Ferrous Sulfate 325 (65 Fe) MG 1 tablet Orally Once a day Active Gabapentin 300 MG 1 cap Oral three times daily for 30 days Active Atorvastatin Calcium 40 MG 1 tablet Orally Once a day Active Omeprazole 40 MG 1 capsule Orally Once a day 30 minutes before lunch for 30 day(s) Active Coumadin 4 MG [...] AF, paroxysmal Surgical History Colonoscopy - Dr. Slelers polyps-tubulovillus adenoma- repeat 12/2018 - tubular/tubulovillus adenoma 07/2016 Surgical History Tubal ligation Hospitalization History stroke 12/04/14 Goals Section No Information Health Concerns No Information MEDICAL EQUIPMENT No Information MENTAL STATUS No Information FUNCTIONAL STATUS No Information ASSESSMENTS Encounter Date Diagnosis Notes Sep, Encounter for therapeutic drug level mon itoring (ICD-10 - Z51.81) Sep, Paroxysmal atrial fibrillation (ICD-10 - I48.0) Sep, Hemiplegia and 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 (ICD-10 - I69.351) Sep, assisted current use of anticoagulant ( ICD-10 - Z79.01) PLAN OF TREATMENT Medication Medication Name Sig Start Date Stop Date Telmisartan 20 MG 1 tab Orally Once a day for 30 day(s) Sertraline HCl 100 MG 1 tablet Orally Once a day Omeprazole 40 MG 1 capsule Orally Once a day 30 minutes before lunch for 30 day(s) Coumadin 4 MG 1 tablet Orally 6 mg Tues 4 mg ROW Warfarin Sodium 7.5 MG 1 tablet tues/Thurs Orally O nce a day Tu/thurs for 30 day(s) Sep, Jardiance 25 MG 1 tablet Orally Once a day for 90 day(s) Ferrous Sulfate 325 (65 Fe) MG 1 tablet Orally Once a day Melatonin 5 MG 1 tablet at bedtime as needed with food Orally O nce a day Lantus SoloStar 100 UNIT/ML 30 units Subcutaneous Daily for 30 Days Aug, Atorvastatin Calcium 40 MG 1 tablet Orally Once a day Gabapentin 100 MG 1 capsule Orally three times a day for 30 Days Januvia 50 MG 1 tablet Orally Once a day for 30 Days Aug, 020 Hydroxychloroquine Sulfate 200 MG 1 tablet with food or milk Orally Once a day BD Ultra-fine Pen [place] 32G 4mm as directed E11.9 Daily fo r 30 Days Aug, Treatment Notes Test Name Order Date PT-INR 2020-09-12 Future Test Test Name Order Date PT-INR [id number] Next Appt Details Provider Name:Gloria Agrawal, 2019-11 11:00:00 AM, [address] [place], [address], Insurance Providers Payer Name Payer Address Payer Phone Insured Name Patient Relati onship to Insured Coverage Start Date Coverage End Date MEDICARE Part A and B [address] [facility] [phone] [place] [employer] [facility] [address] [facility] [id number] [place]
--- OUTSIDE RECORDS SUMMARY | 2020-11-21 06:43 | CCD ---
Author Author [facility] Organization [facility] Address Unknown Phone Unavailable Care Team Providers Care Gunner'S Mate Name Role Phone Glenna Sellers MD Unavailable Unavailable Glenna Sellers MD Unavailable Unavailable Glenna Sellers MD Unavailable Unavailable Glenna Sellers MD Unavailable Unavailable Glenna Sellers MD Unavailable Unavailable Glenna Sellers MD Unavailable Unavailable Glenna Sellers MD Unavailable Unavailable Glenna Sellers MD Unavailable Unavailable Glenna Sellers MD Unavailable Unavailable Glenna Sellers MD Unavailable Unavailable Glenna Sellers MD Unavailable Unavailable Glenna Sellers MD Unavailable Unavailable Glenna Sellers MD Unavailable Unavailable Glenna Sellers MD Unavailable Unavailable Glenna Sellers MD Unavailable Unavailable Glenna Sellers MD Unavailable Unavailable Glenna Sellers MD Unavailable Unavailable Marlo, S Noé MD Unavailable Unavailable Marlo, S Noé MD Unavailable Unavailable Marlo, S Noé MD Unavailable Unavailable Marlo, S Noé MD Unavailable Unavailable Marlo, S Noé MD Unavailable Unavailable Marlo, S Noé MD Unavailable Unavailable Marlo, S Noé MD Unavailable Unavailable Marlo, S Noé MD Unavailable Unavailable Marlo, S Noé MD Unavailable Unavailable Marlo, S Noé MD Unavailable Unavailable Marlo, S Noé MD Unavailable Unavailable Marlo, S Noé MD Unavailable Unavailable Marlo, S Noé MD Unavailable Unavailable Marlo, S Noé MD Unavailable Unavailable Marlo, S Noé MD Unavailable Unavailable Marlo, S Noé MD Unavailable Unavailable Marlo, S Noé MD Unavailable Unavailable Marlo, S Noé MD Unavailable Unavailable Marlo, S Noé MD Unavailable Unavailable Marlo, S Noé MD Unavailable Unavailable Marlo, S Noé MD Unavailable Unavailable Marlo, S Noé MD Unavailable Unavailable Marlo, S Noé MD Unavailable Unavailable Marlo, S Noé MD Unavailable Unavailable Marlo, S Noé MD Unavailable Unavailable Marlo, S Noé MD Unavailable Unavailable Marlo, S Noé MD Unavailable Unavailable Marlo, S Noé MD Unavailable Unavailable Marlo, S Noé MD Unavailable Unavailable Marlo, S Noé MD Unavailable Unavailable Marlo, S Noé MD Unavailable Unavailable [facility] Unavailable Unavailable Re-disclosure Warning The records that you are about to access may contain information from federally-assisted alcohol or drug abuse programs. If such information is present, then the following federally mandated warning applies: This information has been disclosed to you from records protected by federal confidentiality rules (42 CFR part 2). The federal rules prohibit you from making any further disclosure of this information unless further disclosure is expressly permitted by the written consent of the person to whom it pertains or as otherwise permitted by 42 CFR part 2. A general authorization for the release of medical or other information is NOT sufficient for this purpose. The Federal rules restrict any use of the information to criminally investigate or prosecute any alcohol or drug abuse patient.The records that you are about to access may contain highly sensitive health information, the redisclosure of which is protected by Article 27-F of the [facility] Public Health law. If you continue you may have access to information: Regarding HIV / AIDS; Provided by facilities licensed or operated by the [facility] Office of Mental Health; or Provided by the [facility] Office for People With Developmental Disabilities. If such information is present, then the following [facility] mandated warning applies: This information has been disclosed to you from confidential records which are protected by state law. State law prohibits you from making any further disclosure of this information without the specific written consent of the person to whom it pertains, or as otherwise permitted by law. Any unauthorized further disclosure in violation of state law may result in a fine or correction sentence or both. A general authorization for the release of medical or other information is NOT sufficient authorization for further disc losure. Allergies and Adverse Reactions Type Description Substance Reaction Status Data Source(s ) lisinopril Lisinopril Lisinopril unknown Active eCW1 ([facility]) Family History Family Member Name Family Member Gender Family Member Status Date o f Status Description Data Source(s) Unknown Male Problem MEDENT ([facility]) Unknown Unknown Problem MEDENT ([facility], ) Encounters Encounter Providers Location Date Indications Data Source(s ) Unknown [address] [facility] [id number] 11/14/2020 12:00:00 AM EST eCW1 ([facility]) Unknown [address] [facility] [address] 11/13/2020 12:00:00 AM EST eCW1 ([facility]) Unknown [address] [facility] [address] 11/09/2020 12:00:00 AM EST eCW1 ([facility]) Unknown [address] [facility] [address] 11/08/2020 12:00:00 AM EST eCW1 ([facility]) Office Visit, Est Pt., Level 4 [address] [place] [address] 11/07/2020 12:00:00 AM EST eCW1 ([facility]) Unknown [address] [facility] [address] 10/22/2020 12:00:00 AM EST eCW1 ([facility]) Unknown [address] [facility] [place] [address] 10/12/2020 12:00:00 AM EST eCW1 ([facility]) [place] [address] [place] [address] 10/12/2020 12:00:00 AM EST eCW1 ([facility]) [place] [address] [place] [address] 10/09/2020 12:00:00 AM EST eCW1 ([facility]) Unknown [address] [place] [address] 10/08/2020 12:00:00 AM EST eCW1 ([facility]) [place] [address] [place] [address] 10/08/2020 12:00:00 AM EST eCW1 ([facility]) Unknown [address] [place] [place] [address] 10/05/2020 12:00:00 AM EST eCW1 ([facility]) Unknown [address] [place] [place] [address] 10/04/2020 12:00:00 AM EST eCW1 ([facility]) Unknown [address] [place] [place] [address] 09/24/2020 12:00:00 AM EST eCW1 ([facility]) [place] [address] [facility] [place] [address] 09/21/2020 12:00:00 AM EST eCW1 ([facility]) Unknown [address] [place] [place] [address] 09/19/2020 12:00:00 AM EST eCW1 ([facility]) Office Visit, Est Pt., Level 4 PC [address] [place] [address] 09/17/2020 12:00:00 AM EST eCW1 ([facility]) Unknown [address] [place] [place] [address] 09/11/2020 12:00:00 AM EST eCW1 ([facility]) Unknown [address] [place] [place] [address] 08/22/2020 12:00:00 AM EDT eCW1 ([facility]) Unknown [address] [place] [place] [address] 08/21/2020 12:00:00 AM EDT eCW1 ([facility]) Unknown [address] [place] [place] [address] 08/21/2020 12:00:00 AM EDT eCW1 ([facility]) Office Visit, Est Pt., Level 4 PC [address] [place] [address] 08/20/2020 12:00:00 AM EDT eCW1 ([facility]) Unknown [address] [place] [place] [address] 08/17/2020 12:00:00 AM EDT eCW1 ([facility]) Unknown [address] [place] [place] [address] 08/15/2020 12:00:00 AM EDT eCW1 ([facility]) Unknown [address] [place] [place] [address] 08/15/2020 12:00:00 AM EDT eCW1 ([facility]) Unknown [address] [place] [place] [address] 08/13/2020 12:00:00 AM EDT eCW1 ([facility]) Unknown [address] [place] [place] [address] 08/08/2020 12:00:00 AM EDT eCW1 ([facility]) Unknown [address] [place] [place] [address] 08/06/2020 12:00:00 AM EDT eCW1 ([facility]) Unknown [address] [place] [place] [address] 08/02/2020 12:00:00 AM EDT eCW1 ([facility]) [facility] [place] [address] [place] [address] 06/13/2020 12:00:00 AM EDT eCW1 ([facility]) Outpatient Attender: Noé Sellers MD Main Office 2020 10:45:00 AM EDT MEDENT ([facility]) Unknown [address] [place] [address] 04/23/2020 12:00:00 AM EDT eCW1 ([facility]) [facility] [place] [address] [place] [address] 04/19/2020 12:00:00 AM EDT eCW1 ([facility]) Outpatient Attender: ELSY DEWEY 04/10/2020 07:45:56 PM EDT [facility] Unknown [address] [place], [facility] [address] 04/10/2020 12:00:00 AM EDT eCW1 ([facility]) [facility] [address] [place] [address] 04/06/2020 12:00:00 AM EDT eCW1 ([facility]) Unknown [address] [place] [place] [address] 04/03/2020 12:00:00 AM EDT eCW1 ([facility]) Unknown [address] [place] [place] [address] 04/03/2020 12:00:00 AM EDT eCW1 ([facility]) Office Visit, Est Pt., Level 5 PC [address] [place] [address] 04/03/2020 12:00:00 AM EDT eCW1 ([facility]) Outpatient Attender: ELSY DEWEY 03/31/2020 12:14:11 AM EDT [facility] [address] [place] [place] [address] 03/29/2020 12:00:00 AM EDT eCW1 ([facility]) Outpatient Attender: Noé Sellers MD Main Office 03/27/2020 02:45:00 PM EDT MEDENT ([facility]) [facility] [address] [place] [address] 03/21/2020 12:00:00 AM EDT eCW1 ([facility]) [facility] [address] [place] [place] [address] 03/20/2020 12:00:00 AM EDT eCW1 ([facility]) [facility] [address] [place] [address], [place] [address] 03/19/2020 12:00:00 AM EDT eCW1 ([facility]) [facility] [address] [place] [place] [address] 03/19/2020 12:00:00 AM EDT eCW1 ([facility]) [facility] [address] [place] [place] [address] 03/14/2020 12:00:00 AM EDT eCW1 ([facility]) [facility] [address] [place] [address], [place] [address] 03/06/2020 12:00:00 AM EDT eCW1 ([facility]) [facility] [address] [place] [address], [place] [address] 03/01/2020 12:00:00 AM EDT eCW1 ([facility]) [facility] [address] [place] [address], [place] [address] 02/28/2020 12:00:00 AM EDT eCW1 ([facility]) [facility] [address] [place] [address], [place] [address] 02/23/2020 12:00:00 AM EDT eCW1 ([facility]) [facility] [address] [place] [address], [place] [address] 02/21/2020 12:00:00 AM EDT eCW1 ([facility]) [facility] [address] [place] [address], [place] [address] 02/17/2020 12:00:00 AM EDT eCW1 ([facility]) [facility] [address] [place] [address], [place] [address] 02/13/2020 12:00:00 AM EDT eCW1 ([facility]) [facility] [address] [place] [address], [place] [address] 02/10/2020 12:00:00 AM EDT eCW1 ([facility]) [facility] [address] [place] [address], [place] [address] 01/31/2020 12:00:00 AM EDT eCW1 ([facility]) [facility] [address] [place] [address], [place] [address] 01/27/2020 12:00:00 AM EDT eCW1 ([facility]) [facility] [address] [place] [address], [place] [address] 01/24/2020 12:00:00 AM EDT eCW1 ([facility]) [facility] [address] [place] [address], [place] [address] 01/20/2020 12:00:00 AM EDT eCW1 ([facility]) [facility] [address] [place] [address], [place] [address] 01/13/2020 12:00:00 AM EDT eCW1 ([facility]) [address] [address] 12/23/2019 12:00:00 AM EST eCW1 ([facility]) [facility] [address] [place] [address], [place] [address] 12/09/2019 12:00:00 AM EST eCW1 ([facility]) [address] [address] 12/01/2019 12:00:00 AM EST eCW1 ([facility]) [address] [address] 11/25/2019 12:00:00 AM EST eCW1 ([facility]) [facility] [address] [place] [address], [place] [address] 11/18/2019 12:00:00 AM EST eCW1 ([facility]) [facility] [address] [place] [address], [place] [address] 11/17/2019 12:00:00 AM EST eCW1 ([facility]) [facility] [address] [place] [address], [place] [address] 11/16/2019 12:00:00 AM EST eCW1 ([facility]) [facility] [address] [place] [address], [place] [address] 11/14/2019 12:00:00 AM EST eCW1 ([facility]) [address] [address] 11/01/2019 12:00:00 AM EST eCW1 ([facility]) [address] [address] 10/28/2019 12:00:00 AM EST eCW1 ([facility]) [address] [address] 10/20/2019 12:00:00 AM EST [facility]CW1 [facility] [address] [address] 10/12/2019 12:00:00 AM EST eCW1 ([facility]) [address] [address] 10/06/2019 12:00:00 AM EST eCW1 ([facility]) [address] [address] 10/03/2019 12:00:00 AM EST eCW1 ([facility]) [address] [address] 10/03/2019 12:00:00 AM EST eCW1 ([facility]) [facility] [place] [address] [place] [address] 10/03/2019 12:00:00 AM EST eCW1 ([facility]) [facility] [place] [address] [place] [address] 09/28/2019 12:00:00 AM EST eCW1 ([facility]) Immunizations Vaccine Date Status Description Data Source(s) INFLUENZA VIRUS VACCINE QUADRIVAL [id number](6 MOS AND UP)/PF 08/16/2020 12:00:00 AM EDT completed [facility] Medications Medication Brand Name Start Date Product Form Dose Route Admi nistrative Instructions Pharmacy Instructions Status Indications Reaction Description Data Source(s) BD AutoShield Duo 30G X 5 MM BD AutoShield Duo 30G X 5 MM 12:00:00 AM EST active BD AutoShield Duo 30G X 5 MM eCW1 ([facility]) BD AutoShield Duo 30G X 5 MM BD AutoShield Duo 30G X 5 MM 12:00:00 AM EST active BD AutoShield Duo 30G X 5 MM eCW1 ([facility]) Warfarin Sodium 5 MG Oral Tablet Warfarin Sodium 5 MG 2020 12:00:00 AM EST 1.0 {tablet} active Warfarin So dium 5 MG eCW1 ([facility]) Warfarin Sodium 5 MG Oral Tablet Warfarin Sodium 5 MG 2020 12:00:00 AM EST 1.0 {tablet} active Warfarin So dium 5 MG eCW1 ([facility]) Warfarin Sodium 5 MG Oral Tablet Warfarin Sodium 5 MG 2020 12:00:00 AM EST 1.0 {tablet} active Warfarin So dium 5 MG eCW1 ([facility]) Warfarin Sodium 5 MG Oral Tablet Warfarin Sodium 5 MG 2020 12:00:00 AM EST 1.0 {tablet} active Warfarin So dium 5 MG eCW1 ([facility]) Warfarin Sodium 5 MG Oral Tablet Warfarin Sodium 5 MG 01/08/ 2021 12:00:00 AM EST 1.0 {tablet} active Warfarin So dium 5 MG eCW1 ([facility]) Warfarin Sodium 5 MG Oral Tablet Warfarin Sodium 5 MG 2019 12:00:00 AM EST 1.0 {tablet} active Warfarin So dium 5 MG eCW1 ([facility]) Warfarin Sodium 5 MG Oral Tablet Warfarin Sodium 5 MG 2019 12:00:00 AM EST 1.0 {tablet} active Warfarin So dium 5 MG eCW1 ([facility]) Warfarin Sodium 5 MG Oral Tablet Warfarin Sodium 5 MG 2019 12:00:00 AM EST 1.0 {tablet} active Warfarin So dium 5 MG eCW1 ([facility]) Warfarin Sodium 5 MG Oral Tablet Warfarin Sodium 5 MG 2019 12:00:00 AM EST 1.0 {tablet} active Warfarin So dium 5 MG eCW1 ([facility]) Warfarin Sodium 5 MG Oral Tablet Warfarin Sodium 5 MG 2019 12:00:00 AM EST 1.0 {tablet} active Warfarin So dium 5 MG eCW1 ([facility]) Warfarin Sodium 5 MG Oral Tablet Warfarin Sodium 5 MG 2019 12:00:00 AM EST 1.0 {tablet} active Warfarin So dium 5 MG eCW1 ([facility]) Warfarin Sodium 5 MG Oral Tablet Warfarin Sodium 5 MG 2019 12:00:00 AM EST 1.0 {tablet} active Warfarin So dium 5 MG eCW1 ([facility]) Warfarin Sodium 5 MG Oral Tablet Warfarin Sodium 5 MG 2019 12:00:00 AM EST 1.0 {tablet} active Warfarin So dium 5 MG eCW1 ([facility]) Tylenol Extra Strength 500 MG Tylenol Extra Strength 500 MG 09/19/2020 12:00:00 AM EST 2.0 {tablet} active Tylenol Ext ra Strength 500 MG eCW1 ([facility]) Tylenol Extra Strength 500 MG Tylenol Extra Strength 500 MG 09/19/2020 12:00:00 AM EST 2.0 {tablet} active Tylenol Ext ra Strength 500 MG eCW1 ([facility]) Tylenol Extra Strength 500 MG Tylenol Extra Strength 500 MG 09/19/2020 12:00:00 AM EST 2.0 {tablet} active Tylenol Ext ra Strength 500 MG eCW1 ([facility]) Tylenol Extra Strength 500 MG Tylenol Extra Strength 500 MG 09/19/2020 12:00:00 AM EST 2.0 {tablet} active Tylenol Ext ra Strength 500 MG eCW1 ([facility]) Tylenol Extra Strength 500 MG Tylenol Extra Strength 500 MG 09/19/2020 12:00:00 AM EST 2.0 {tablet} active Tylenol Ext ra Strength 500 MG eCW1 ([facility]) Tylenol Extra Strength 500 MG Tylenol Extra Strength 500 MG 09/19/2020 12:00:00 AM EST 2.0 {tablet} active Tylenol Ext ra Strength 500 MG eCW1 ([facility]) Tylenol Extra Strength 500 MG Tylenol Extra Strength 500 MG 09/19/2020 12:00:00 AM EST 2.0 {tablet} active Tylenol Ext ra Strength 500 MG eCW1 ([facility]) Tylenol Extra Strength 500 MG Tylenol Extra Strength 500 MG 09/19/2020 12:00:00 AM EST 2.0 {tablet} active Tylenol Ext ra Strength 500 MG eCW1 ([facility]) Tylenol Extra Strength 500 MG Tylenol Extra Strength 500 MG 09/19/2020 12:00:00 AM EST 2.0 {tablet} active Tylenol Ext ra Strength 500 MG eCW1 ([facility]) Tylenol Extra Strength 500 MG Tylenol Extra Strength 500 MG 09/19/2020 12:00:00 AM EST 2.0 {tablet} active Tylenol Ext ra Strength 500 MG eCW1 ([facility]) Tylenol Extra Strength 500 MG Tylenol Extra Strength 500 MG 09/19/2020 12:00:00 AM EST 2.0 {tablet} active Tylenol Ext ra Strength 500 MG eCW1 ([facility]) Tylenol Extra Strength 500 MG Tylenol Extra Strength 500 MG 09/19/2020 12:00:00 AM EST 2.0 {tablet} active Tylenol Ext ra Strength 500 MG eCW1 ([facility]) Tylenol Extra Strength 500 MG Tylenol Extra Strength 500 MG 09/19/2020 12:00:00 AM EST 2.0 {tablet} active Tylenol Ext ra Strength 500 MG eCW1 ([facility]) Tylenol Extra Strength 500 MG Tylenol Extra Strength 500 MG 09/19/2020 12:00:00 AM EST 2.0 {tablet} active Tylenol Ext ra Strength 500 MG eCW1 ([facility]) Tylenol Extra Strength 500 MG Tylenol Extra Strength 500 MG 09/19/2020 12:00:00 AM EST 2.0 {tablet} active Tylenol Ext ra Strength 500 MG eCW1 ([facility]) Tylenol Extra Strength 500 MG Tylenol Extra Strength 500 MG 09/19/2020 12:00:00 AM EST 2.0 {tablet} active Tylenol Ext ra Strength 500 MG eCW1 ([facility]) Tylenol Extra Strength 500 MG Tylenol Extra Strength 500 MG 09/19/2020 12:00:00 AM EST 2.0 {tablet} active Tylenol Ext ra Strength 500 MG eCW1 ([facility]) Menthol 100 MG/ML / methyl salicylate 15 0 MG/ML Topical Cream Bengay Greaseless 10-15 % Bengay Greaseless 10-15 % 09/17/2020 12:00:00 AM EST active Bengay Greaseless 10-15 % eCW1 ([facility]) Menthol 100 MG/ML / methyl salicylate 15 0 MG/ML Topical Cream Bengay Greaseless 10-15 % Bengay Greaseless 10-15 % 09/17/2020 12:00:00 AM EST active Bengay Greaseless 10-15 % eCW1 ([facility]) Menthol 100 MG/ML / methyl salicylate 15 0 MG/ML Topical Cream Bengay Greaseless 10-15 % Bengay Greaseless 10-15 % 09/17/2020 12:00:00 AM EST active Bengay Greaseless 10-15 % eCW1 ([facility]) Menthol 100 MG/ML / methyl salicylate 15 0 MG/ML Topical Cream Bengay Greaseless 10-15 % Bengay Greaseless 10-15 % 09/17/2020 12:00:00 AM EST active Bengay Greaseless 10-15 % eCW1 ([facility]) Menthol 100 MG/ML / methyl salicylate 15 0 MG/ML Topical Cream Bengay Greaseless 10-15 % Bengay Greaseless 10-15 % 09/17/2020 12:00:00 AM EST active Bengay Greaseless 10-15 % eCW1 ([facility]) Menthol 100 MG/ML / methyl salicylate 15 0 MG/ML Topical Cream Bengay Greaseless 10-15 % Bengay Greaseless 10-15 % 09/17/2020 12:00:00 AM EST active Bengay Greaseless 10-15 % eCW1 ([facility]) Menthol 100 MG/ML / methyl salicylate 15 0 MG/ML Topical Cream Bengay Greaseless 10-15 % Bengay Greaseless 10-15 % 09/17/2020 12:00:00 AM EST active Bengay Greaseless 10-15 % eCW1 ([facility]) Menthol 100 MG/ML / methyl salicylate 15 0 MG/ML Topical Cream Bengay Greaseless 10-15 % Bengay Greaseless 10-15 % 09/17/2020 12:00:00 AM EST active Bengay Greaseless 10-15 % eCW1 ([facility]) Menthol 100 MG/ML / methyl salicylate 15 0 MG/ML Topical Cream Bengay Greaseless 10-15 % Bengay Greaseless 10-15 % 09/17/2020 12:00:00 AM EST active Bengay Greaseless 10-15 % eCW1 ([facility]) Menthol 100 MG/ML / methyl salicylate 15 0 MG/ML Topical Cream Bengay Greaseless 10-15 % Bengay Greaseless 10-15 % 09/17/2020 12:00:00 AM EST active Bengay Greaseless 10-15 % eCW1 ([facility]) Menthol 100 MG/ML / methyl salicylate 15 0 MG/ML Topical Cream Bengay Greaseless 10-15 % Bengay Greaseless 10-15 % 09/17/2020 12:00:00 AM EST active Bengay Greaseless 10-15 % eCW1 ([facility]) Menthol 100 MG/ML / methyl salicylate 15 0 MG/ML Topical Cream Bengay Greaseless 10-15 % Bengay Greaseless 10-15 % 09/17/2020 12:00:00 AM EST active Bengay Greaseless 10-15 % eCW1 ([facility]) Warfarin Sodium 7.5 MG Oral Tablet Warfarin Sodium 7.5 MG 12:00:00 AM EST active Warfarin Sodium 7 .5 MG eCW1 ([facility]) Warfarin Sodium 7.5 MG Oral Tablet Warfarin Sodium 7.5 MG 12:00:00 AM EST active Warfarin Sodium 7 .5 MG eCW1 ([facility]) Warfarin Sodium 7.5 MG Oral Tablet Warfarin Sodium 7.5 MG 12:00:00 AM EST active Warfarin Sodium 7 .5 MG eCW1 ([facility]) Warfarin Sodium 7.5 MG Oral Tablet Warfarin Sodium 7.5 MG 12:00:00 AM EST active Warfarin Sodium 7 .5 MG eCW1 ([facility]) Warfarin Sodium 7.5 MG Oral Tablet Warfarin Sodium 7.5 MG 12:00:00 AM EST active Warfarin Sodium 7 .5 MG eCW1 ([facility]) Warfarin Sodium 7.5 MG Oral Tablet Warfarin Sodium 7.5 MG 12:00:00 AM EST active Warfarin Sodium 7 .5 MG eCW1 ([facility]) Warfarin Sodium 7.5 MG Oral Tablet Warfarin Sodium 7.5 MG 12:00:00 AM EST active Warfarin Sodium 7 .5 MG eCW1 ([facility]) Warfarin Sodium 7.5 MG Oral Tablet Warfarin Sodium 7.5 MG 12:00:00 AM EST active Warfarin Sodium 7 .5 MG eCW1 ([facility]) Warfarin Sodium 7.5 MG Oral Tablet Warfarin Sodium 7.5 MG 12:00:00 AM EST active Warfarin Sodium 7 .5 MG eCW1 ([facility]) Warfarin Sodium 7.5 MG Oral Tablet Warfarin Sodium 7.5 MG 12:00:00 AM EST active Warfarin Sodium 7 .5 MG eCW1 ([facility]) Warfarin Sodium 7.5 MG Oral Tablet Warfarin Sodium 7.5 MG 12:00:00 AM EST active Warfarin Sodium 7 .5 MG eCW1 ([facility]) Warfarin Sodium 7.5 MG Oral Tablet Warfarin Sodium 7.5 MG 12:00:00 AM EST active Warfarin Sodium 7 .5 MG eCW1 ([facility]) Warfarin Sodium 7.5 MG Oral Tablet Warfarin Sodium 7.5 MG 12:00:00 AM EST active Warfarin Sodium 7 .5 MG eCW1 ([facility]) 3 ML Insulin Glargine 100 UNT/ML Pen Inj marlen [Lantus] Lantus SoloStar 100 UNIT/ML Lantus SoloStar 100 UNIT/ML 08/21/2020 12:00:00 AM EDT active Lantus SoloStar 100 UNIT/ML eCW1 (On license of [facility]) 3 ML Insulin Glargine 100 UNT/ML Pen Inj marlen [Lantus] Lantus SoloStar 100 UNIT/ML Lantus SoloStar 100 UNIT/ML 08/21/2020 12:00:00 AM EDT active Lantus SoloStar 100 UNIT/ML eCW1 (On license of [facility]) 3 ML Insulin Glargine 100 UNT/ML Pen Inj marlen [Lantus] Lantus SoloStar 100 UNIT/ML Lantus SoloStar 100 UNIT/ML 08/21/2020 12:00:00 AM EDT active Lantus SoloStar 100 UNIT/ML eCW1 (On license of [facility]) 3 ML Insulin Glargine 100 UNT/ML Pen Inj marlen [Lantus] Lantus SoloStar 100 UNIT/ML Lantus SoloStar 100 UNIT/ML 08/21/2020 12:00:00 AM EDT active Lantus SoloStar 100 UNIT/ML eCW1 (On license of [facility]) 3 ML Insulin Glargine 100 UNT/ML Pen Inj marlen [Lantus] Lantus SoloStar 100 UNIT/ML Lantus SoloStar 100 UNIT/ML 08/21/2020 12:00:00 AM EDT active Lantus SoloStar 100 UNIT/ML eCW1 (On license of [facility]) 3 ML Insulin Glargine 100 UNT/ML Pen Inj marlen [Lantus] Lantus SoloStar 100 UNIT/ML Lantus SoloStar 100 UNIT/ML 08/21/2020 12:00:00 AM EDT active Lantus SoloStar 100 UNIT/ML eCW1 (On license of [facility]) 3 ML Insulin Glargine 100 UNT/ML Pen Inj marlen [Lantus] Lantus SoloStar 100 UNIT/ML Lantus SoloStar 100 UNIT/ML 08/21/2020 12:00:00 AM EDT active Lantus SoloStar 100 UNIT/ML eCW1 (On license of [facility]) 3 ML Insulin Glargine 100 UNT/ML Pen Inj marlen [Lantus] Lantus SoloStar 100 UNIT/ML Lantus SoloStar 100 UNIT/ML 08/21/2020 12:00:00 AM EDT active Lantus SoloStar 100 UNIT/ML eCW1 (On license of [facility]) 3 ML Insulin Glargine 100 UNT/ML Pen Inj marlen [Lantus] Lantus SoloStar 100 UNIT/ML Lantus SoloStar 100 UNIT/ML 08/21/2020 12:00:00 AM EDT active Lantus SoloStar 100 UNIT/ML eCW1 (On license of [facility]) 3 ML Insulin Glargine 100 UNT/ML Pen Inj marlen [Lantus] Lantus SoloStar 100 UNIT/ML Lantus SoloStar 100 UNIT/ML 08/21/2020 12:00:00 AM EDT active Lantus SoloStar 100 UNIT/ML eCW1 (On license of [facility]) 3 ML Insulin Glargine 100 UNT/ML Pen Inj marlen [Lantus] Lantus SoloStar 100 UNIT/ML Lantus SoloStar 100 UNIT/ML 08/21/2020 12:00:00 AM EDT active Lantus SoloStar 100 UNIT/ML eCW1 (On license of [facility]) 3 ML Insulin Glargine 100 UNT/ML Pen Inj marlen [Lantus] Lantus SoloStar 100 UNIT/ML Lantus SoloStar 100 UNIT/ML 08/21/2020 12:00:00 AM EDT active Lantus SoloStar 100 UNIT/ML eCW1 (On license of [facility]) 3 ML Insulin Glargine 100 UNT/ML Pen Inj marlen [Lantus] Lantus SoloStar 100 UNIT/ML Lantus SoloStar 100 UNIT/ML 08/21/2020 12:00:00 AM EDT active Lantus SoloStar 100 UNIT/ML eCW1 (On license of [facility]) 3 ML Insulin Glargine 100 UNT/ML Pen Inj marlen [Lantus] Lantus SoloStar 100 UNIT/ML Lantus SoloStar 100 UNIT/ML 08/21/2020 12:00:00 AM EDT active Lantus SoloStar 100 UNIT/ML eCW1 (On license of [facility]) 3 ML Insulin Glargine 100 UNT/ML Pen Inj marlen [Lantus] Lantus SoloStar 100 UNIT/ML Lantus SoloStar 100 UNIT/ML 08/21/2020 12:00:00 AM EDT active Lantus SoloStar 100 UNIT/ML eCW1 (On license of [facility]) 3 ML Insulin Glargine 100 UNT/ML Pen Inj marlen [Lantus] Lantus SoloStar 100 UNIT/ML Lantus SoloStar 100 UNIT/ML 08/21/2020 12:00:00 AM EDT active Lantus SoloStar 100 UNIT/ML eCW1 (On license of [facility]) 3 ML Insulin Glargine 100 UNT/ML Pen Inj marlen [Lantus] Lantus SoloStar 100 UNIT/ML Lantus SoloStar 100 UNIT/ML 08/21/2020 12:00:00 AM EDT active Lantus SoloStar 100 UNIT/ML eCW1 (On license of [facility]) 3 ML Insulin Glargine 100 UNT/ML Pen Inj marlen [Lantus] Lantus SoloStar 100 UNIT/ML Lantus SoloStar 100 UNIT/ML 08/21/2020 12:00:00 AM EDT active Lantus SoloStar 100 UNIT/ML eCW1 (On license of [facility]) 3 ML Insulin Glargine 100 UNT/ML Pen Inj marlen [Lantus] Lantus SoloStar 100 UNIT/ML Lantus SoloStar 100 UNIT/ML 08/21/2020 12:00:00 AM EDT active Lantus SoloStar 100 UNIT/ML eCW1 (On license of [facility]) 3 ML Insulin Glargine 100 UNT/ML Pen Inj marlen [Lantus] Lantus SoloStar 100 UNIT/ML Lantus SoloStar 100 UNIT/ML 08/21/2020 12:00:00 AM EDT active Lantus SoloStar 100 UNIT/ML eCW1 (On license of [facility]) 3 ML Insulin Glargine 100 UNT/ML Pen Inj marlen [Lantus] Lantus SoloStar 100 UNIT/ML Lantus SoloStar 100 UNIT/ML 08/21/2020 12:00:00 AM EDT active Lantus SoloStar 100 UNIT/ML eCW1 (On license of [facility]) 3 ML Insulin Glargine 100 UNT/ML Pen Inj marlen [Lantus] Lantus SoloStar 100 UNIT/ML Lantus SoloStar 100 UNIT/ML 08/21/2020 12:00:00 AM EDT active Lantus SoloStar 100 UNIT/ML eCW1 (On license of [facility]) sitagliptin 50 MG Oral Tablet [Januvia] Januvia 50 MG Januvi a 50 MG 08/20/2020 12:00:00 AM EDT 1.0 {tablet} active Ja meghan 50 MG eCW1 ([facility]) BD Ultra-fine Pen Stout 32G 4mm UNK 08/20/2020 12:00:00 AM EDT active BD Ultra-fine Pen Stout 32G 4m m eCW1 ([facility]) sitagliptin 50 MG Oral Tablet [Januvia] Januvia 50 MG Januvi a 50 MG 08/20/2020 12:00:00 AM EDT 1.0 {tablet} active Ja meghan 50 MG eCW1 ([facility]) sitagliptin 50 MG Oral Tablet [Januvia] Januvia 50 MG Januvi a 50 MG 08/20/2020 12:00:00 AM EDT 1.0 {tablet} active Ja meghan 50 MG eCW1 ([facility]) BD Ultra-fine Pen Stout 32G 4mm UNK 08/20/2020 12:00:00 AM EDT active BD Ultra-fine Pen Stout 32G 4m m eCW1 ([facility]) sitagliptin 50 MG Oral Tablet [Januvia] Januvia 50 MG Januvi a 50 MG 08/20/2020 12:00:00 AM EDT 1.0 {tablet} active Ja meghan 50 MG eCW1 ([facility]) BD Ultra-fine Pen Stout 32G 4mm UNK 08/20/2020 12:00:00 AM EDT active BD Ultra-fine Pen Stout 32G 4m m eCW1 ([facility]) BD Ultra-fine Pen Stout 32G 4mm UNK 08/20/2020 12:00:00 AM EDT active BD Ultra-fine Pen Stout 32G 4m m eCW1 ([facility]) BD Ultra-fine Pen Stout 32G 4mm UNK 08/20/2020 12:00:00 AM EDT active BD Ultra-fine Pen Stout 32G 4m m eCW1 ([facility]) sitagliptin 50 MG Oral Tablet [Januvia] Januvia 50 MG Januvi a 50 MG 08/20/2020 12:00:00 AM EDT 1.0 {tablet} active Ja meghan 50 MG eCW1 ([facility]) Acetaminophen 500 MG / Diphenhydramine H ydrochloride 25 MG Oral Tablet [Tylenol PM] Tylenol PM Extra Strength 500-25 MG Tylenol PM Extra Strength 500-25 MG 05/02/2020 12:00:00 AM EDT 2.0 {tablet_at_bedtime} active Tylenol PM Extra Strength 500-25 MG eCW1 ([facility]) Acetaminophen 500 MG / Diphenhydramine H ydrochloride 25 MG Oral Tablet [Tylenol PM] Tylenol PM Extra Strength 500-25 MG Tylenol PM Extra Strength 500-25 MG 05/02/2020 12:00:00 AM EDT 2.0 {tablet_at_bedtime} active Tylenol PM Extra Strength 500-25 MG eCW1 ([facility]) Acetaminophen 500 MG / Diphenhydramine H ydrochloride 25 MG Oral Tablet [Tylenol PM] Tylenol PM Extra Strength 500-25 MG Tylenol PM Extra Strength 500-25 MG 05/02/2020 12:00:00 AM EDT 2.0 {tablet_at_bedtime} active Tylenol PM Extra Strength 500-25 MG eCW1 ([facility]) Acetaminophen 500 MG / Diphenhydramine H ydrochloride 25 MG Oral Tablet [Tylenol PM] Tylenol PM Extra Strength 500-25 MG Tylenol PM Extra Strength 500-25 MG 05/02/2020 12:00:00 AM EDT 2.0 {tablet_at_bedtime} active Tylenol PM Extra Strength 500-25 MG eCW1 ([facility]) Acetaminophen 500 MG / Diphenhydramine H ydrochloride 25 MG Oral Tablet [Tylenol PM] Tylenol PM Extra Strength 500-25 MG Tylenol PM Extra Strength 500-25 MG 05/02/2020 12:00:00 AM EDT 2.0 {tablet_at_bedtime} active Tylenol PM Extra Strength 500-25 MG eCW1 ([facility]) Acetaminophen 500 MG / Diphenhydramine H ydrochloride 25 MG Oral Tablet [Tylenol PM] Tylenol PM Extra Strength 500-25 MG Tylenol PM Extra Strength 500-25 MG 05/02/2020 12:00:00 AM EDT 2.0 {tablet_at_bedtime} active Tylenol PM Extra Strength 500-25 MG eCW1 ([facility]) Acetaminophen 500 MG / Diphenhydramine H ydrochloride 25 MG Oral Tablet [Tylenol PM] Tylenol PM Extra Strength 500-25 MG Tylenol PM Extra Strength 500-25 MG 05/02/2020 12:00:00 AM EDT 2.0 {tablet_at_bedtime} active Tylenol PM Extra Strength 500-25 MG eCW1 ([facility]) Acetaminophen 500 MG / Diphenhydramine H ydrochloride 25 MG Oral Tablet [Tylenol PM] Tylenol PM Extra Strength 500-25 MG Tylenol PM Extra Strength 500-25 MG 05/02/2020 12:00:00 AM EDT 2.0 {tablet_at_bedtime} active Tylenol PM Extra Strength 500-25 MG eCW1 ([facility]) Acetaminophen 500 MG / Diphenhydramine H ydrochloride 25 MG Oral Tablet [Tylenol PM] Tylenol PM Extra Strength 500-25 MG Tylenol PM Extra Strength 500-25 MG 05/02/2020 12:00:00 AM EDT 2.0 {tablet_at_bedtime} active Tylenol PM Extra Strength 500-25 MG eCW1 ([facility]) Acetaminophen 500 MG / Diphenhydramine H ydrochloride 25 MG Oral Tablet [Tylenol PM] Tylenol PM Extra Strength 500-25 MG Tylenol PM Extra Strength 500-25 MG 05/02/2020 12:00:00 AM EDT 2.0 {tablet_at_bedtime} active Tylenol PM Extra Strength 500-25 MG eCW1 ([facility]) Acetaminophen 500 MG / Diphenhydramine H ydrochloride 25 MG Oral Tablet [Tylenol PM] Tylenol PM Extra Strength 500-25 MG Tylenol PM Extra Strength 500-25 MG 05/02/2020 12:00:00 AM EDT 2.0 {tablet_at_bedtime} active Tylenol PM Extra Strength 500-25 MG eCW1 ([facility]) Acetaminophen 500 MG / Diphenhydramine H ydrochloride 25 MG Oral Tablet [Tylenol PM] Tylenol PM Extra Strength 500-25 MG Tylenol PM Extra Strength 500-25 MG 05/02/2020 12:00:00 AM EDT 2.0 {tablet_at_bedtime} active Tylenol PM Extra Strength 500-25 MG eCW1 ([facility]) Acetaminophen 500 MG / Diphenhydramine H ydrochloride 25 MG Oral Tablet [Tylenol PM] Tylenol PM Extra Strength 500-25 MG Tylenol PM Extra Strength 500-25 MG 05/02/2020 12:00:00 AM EDT 2.0 {tablet_at_bedtime} active Tylenol PM Extra Strength 500-25 MG eCW1 ([facility]) Acetaminophen 500 MG / Diphenhydramine H ydrochloride 25 MG Oral Tablet [Tylenol PM] Tylenol PM Extra Strength 500-25 MG Tylenol PM Extra Strength 500-25 MG 05/02/2020 12:00:00 AM EDT 2.0 {tablet_at_bedtime} active Tylenol PM Extra Strength 500-25 MG eCW1 ([facility]) Acetaminophen 500 MG / Diphenhydramine H ydrochloride 25 MG Oral Tablet [Tylenol PM] Tylenol PM Extra Strength 500-25 MG Tylenol PM Extra Strength 500-25 MG 05/02/2020 12:00:00 AM EDT 2.0 {tablet_at_bedtime} active Tylenol PM Extra Strength 500-25 MG eCW1 ([facility]) Acetaminophen 500 MG / Diphenhydramine H ydrochloride 25 MG Oral Tablet [Tylenol PM] Tylenol PM Extra Strength 500-25 MG Tylenol PM Extra Strength 500-25 MG 05/02/2020 12:00:00 AM EDT 2.0 {tablet_at_bedtime} active Tylenol PM Extra Strength 500-25 MG eCW1 ([facility]) Acetaminophen 500 MG / Diphenhydramine H ydrochloride 25 MG Oral Tablet [Tylenol PM] Tylenol PM Extra Strength 500-25 MG Tylenol PM Extra Strength 500-25 MG 05/02/2020 12:00:00 AM EDT 2.0 {tablet_at_bedtime} active Tylenol PM Extra Strength 500-25 MG eCW1 ([facility]) Acetaminophen 500 MG / Diphenhydramine H ydrochloride 25 MG Oral Tablet [Tylenol PM] Tylenol PM Extra Strength 500-25 MG Tylenol PM Extra Strength 500-25 MG 05/02/2020 12:00:00 AM EDT 2.0 {tablet_at_bedtime} active Tylenol PM Extra Strength 500-25 MG eCW1 ([facility]) Acetaminophen 500 MG / Diphenhydramine H ydrochloride 25 MG Oral Tablet [Tylenol PM] Tylenol PM Extra Strength 500-25 MG Tylenol PM Extra Strength 500-25 MG 05/02/2020 12:00:00 AM EDT 2.0 {tablet_at_bedtime} active Tylenol PM Extra Strength 500-25 MG eCW1 ([facility]) Acetaminophen 500 MG / Diphenhydramine H ydrochloride 25 MG Oral Tablet [Tylenol PM] Tylenol PM Extra Strength 500-25 MG Tylenol PM Extra Strength 500-25 MG 05/02/2020 12:00:00 AM EDT 2.0 {tablet_at_bedtime} active Tylenol PM Extra Strength 500-25 MG eCW1 ([facility]) Acetaminophen 500 MG / Diphenhydramine H ydrochloride 25 MG Oral Tablet [Tylenol PM] Tylenol PM Extra Strength 500-25 MG Tylenol PM Extra Strength 500-25 MG 05/02/2020 12:00:00 AM EDT 2.0 {tablet_at_bedtime} active Tylenol PM Extra Strength 500-25 MG eCW1 ([facility]) Acetaminophen 500 MG / Diphenhydramine H ydrochloride 25 MG Oral Tablet [Tylenol PM] Tylenol PM Extra Strength 500-25 MG Tylenol PM Extra Strength 500-25 MG 05/02/2020 12:00:00 AM EDT 2.0 {tablet_at_bedtime} active Tylenol PM Extra Strength 500-25 MG eCW1 ([facility]) Acetaminophen 500 MG / Diphenhydramine H ydrochloride 25 MG Oral Tablet [Tylenol PM] Tylenol PM Extra Strength 500-25 MG Tylenol PM Extra Strength 500-25 MG 05/02/2020 12:00:00 AM EDT 2.0 {tablet_at_bedtime} active Tylenol PM Extra Strength 500-25 MG eCW1 ([facility]) Acetaminophen 500 MG / Diphenhydramine H ydrochloride 25 MG Oral Tablet [Tylenol PM] Tylenol PM Extra Strength 500-25 MG Tylenol PM Extra Strength 500-25 MG 05/02/2020 12:00:00 AM EDT 2.0 {tablet_at_bedtime} active Tylenol PM Extra Strength 500-25 MG eCW1 ([facility]) Acetaminophen 500 MG / Diphenhydramine H ydrochloride 25 MG Oral Tablet [Tylenol PM] Tylenol PM Extra Strength 500-25 MG Tylenol PM Extra Strength 500-25 MG 05/02/2020 12:00:00 AM EDT 2.0 {tablet_at_bedtime} active Tylenol PM Extra Strength 500-25 MG eCW1 ([facility]) Acetaminophen 500 MG / Diphenhydramine H ydrochloride 25 MG Oral Tablet [Tylenol PM] Tylenol PM Extra Strength 500-25 MG Tylenol PM Extra Strength 500-25 MG 05/02/2020 12:00:00 AM EDT 2.0 {tablet_at_bedtime} active Tylenol PM Extra Strength 500-25 MG eCW1 ([facility]) Acetaminophen 500 MG / Diphenhydramine H ydrochloride 25 MG Oral Tablet [Tylenol PM] Tylenol PM Extra Strength 500-25 MG Tylenol PM Extra Strength 500-25 MG 05/02/2020 12:00:00 AM EDT 2.0 {tablet_at_bedtime} active Tylenol PM Extra Strength 500-25 MG eCW1 ([facility]) Acetaminophen 500 MG / Diphenhydramine H ydrochloride 25 MG Oral Tablet [Tylenol PM] Tylenol PM Extra Strength 500-25 MG Tylenol PM Extra Strength 500-25 MG 05/02/2020 12:00:00 AM EDT 2.0 {tablet_at_bedtime} active Tylenol PM Extra Strength 500-25 MG eCW1 ([facility]) Acetaminophen 500 MG / Diphenhydramine H ydrochloride 25 MG Oral Tablet [Tylenol PM] Tylenol PM Extra Strength 500-25 MG Tylenol PM Extra Strength 500-25 MG 05/02/2020 12:00:00 AM EDT 2.0 {tablet_at_bedtime} active Tylenol PM Extra Strength 500-25 MG eCW1 ([facility]) Suprep Bowel Prep Kit Suprep Bowel Prep Kit 03/27/2020 12:00:00 AM EDT completed MEDENT ([facility]) May Have - UNK 03/20/2020 12:00:00 AM EDT active May Have - eCW1 ([facility]) May Have - UNK 03/20/2020 12:00:00 AM EDT active May Have - eCW1 ([facility]) May Have - UNK 03/20/2020 12:00:00 AM EDT active May Have - eCW1 ([facility]) May Have - UNK 03/20/2020 12:00:00 AM EDT active May Have - eCW1 ([facility]) May Have - UNK 03/20/2020 12:00:00 AM EDT active May Have - eCW1 ([facility]) May Have - UNK 03/20/2020 12:00:00 AM EDT active May Have - eCW1 ([facility]) May Have - UNK 03/20/2020 12:00:00 AM EDT active May Have - eCW1 ([facility]) May Have - UNK 03/20/2020 12:00:00 AM EDT active May Have - eCW1 ([facility]) May Have - UNK 03/20/2020 12:00:00 AM EDT active May Have - eCW1 ([facility]) May Have - UNK 03/20/2020 12:00:00 AM EDT active May Have - eCW1 ([facility]) May Have - UNK 03/20/2020 12:00:00 AM EDT active May Have - eCW1 ([facility]) May Have - UNK 03/20/2020 12:00:00 AM EDT active May Have - eCW1 ([facility]) May Have - UNK 03/20/2020 12:00:00 AM EDT active extension of santi chair spenserey to extend length for legs eCW1 ([facility]) May Have - UNK 03/20/2020 12:00:00 AM EDT active May Have - eCW1 ([facility]) May Have - UNK 03/20/2020 12:00:00 AM EDT active May Have - eCW1 ([facility]) May Have - UNK 03/20/2020 12:00:00 AM EDT active May Have - eCW1 ([facility]) May Have - UNK 03/20/2020 12:00:00 AM EDT active May Have - eCW1 ([facility]) May Have - UNK 03/20/2020 12:00:00 AM EDT active May Have - eCW1 ([facility]) May Have - UNK 03/20/2020 12:00:00 AM EDT active May Have - eCW1 ([facility]) May Have - UNK 03/20/2020 12:00:00 AM EDT active May Have - eCW1 ([facility]) May Have - UNK 03/20/2020 12:00:00 AM EDT active May Have - eCW1 ([facility]) May Have - UNK 03/20/2020 12:00:00 AM EDT active May Have - eCW1 ([facility]) May Have - UNK 03/20/2020 12:00:00 AM EDT active May Have - eCW1 ([facility]) May Have - UNK 03/20/2020 12:00:00 AM EDT active May Have - eCW1 ([facility]) May Have - UNK 03/20/2020 12:00:00 AM EDT active May Have - eCW1 ([facility]) May Have - UNK 03/20/2020 12:00:00 AM EDT active May Have - eCW1 ([facility]) May Have - UNK 03/20/2020 12:00:00 AM EDT active May Have - eCW1 ([facility]) May Have - UNK 03/20/2020 12:00:00 AM EDT active May Have - eCW1 ([facility]) May Have - UNK 03/20/2020 12:00:00 AM EDT active May Have - eCW1 ([facility]) May Have - UNK 03/20/2020 12:00:00 AM EDT active May Have - eCW1 ([facility]) telmisartan 20 MG Oral Tablet Telmisartan 20 MG Telmisartan 20 MG 03/14/2020 12:00:00 AM EDT active Telmisar mock 20 MG eCW1 ([facility]) telmisartan 20 MG Oral Tablet Telmisartan 20 MG Telmisartan 20 MG 03/14/2020 12:00:00 AM EDT active Telmisar mock 20 MG eCW1 ([facility]) telmisartan 20 MG Oral Tablet Telmisartan 20 MG Telmisartan 20 MG 03/14/2020 12:00:00 AM EDT active 1 tab e CW1 ([facility]) telmisartan 20 MG Oral Tablet Telmisartan 20 MG Telmisartan 20 MG 03/14/2020 12:00:00 AM EDT active Telmisar mock 20 MG eCW1 ([facility]) telmisartan 20 MG Oral Tablet Telmisartan 20 MG Telmisartan 20 MG 03/14/2020 12:00:00 AM EDT active 1 tab e CW1 ([facility]) telmisartan 20 MG Oral Tablet Telmisartan 20 MG Telmisartan 20 MG 03/14/2020 12:00:00 AM EDT active Telmisar mock 20 MG eCW1 ([facility]) telmisartan 20 MG Oral Tablet Telmisartan 20 MG Telmisartan 20 MG 03/14/2020 12:00:00 AM EDT active Telmisar mock 20 MG eCW1 ([facility]) telmisartan 20 MG Oral Tablet Telmisartan 20 MG Telmisartan 20 MG 03/14/2020 12:00:00 AM EDT active Telmisar mock 20 MG eCW1 ([facility]) telmisartan 20 MG Oral Tablet Telmisartan 20 MG Telmisartan 20 MG 03/14/2020 12:00:00 AM EDT active Telmisar mock 20 MG eCW1 ([facility]) telmisartan 20 MG Oral Tablet Telmisartan 20 MG Telmisartan 20 MG 03/14/2020 12:00:00 AM EDT active Telmisar mock 20 MG eCW1 ([facility]) telmisartan 20 MG Oral Tablet Telmisartan 20 MG Telmisartan 20 MG 03/14/2020 12:00:00 AM EDT active Telmisar mock 20 MG eCW1 ([facility]) telmisartan 20 MG Oral Tablet Telmisartan 20 MG Telmisartan 20 MG 03/14/2020 12:00:00 AM EDT active Telmisar mock 20 MG eCW1 ([facility]) telmisartan 20 MG Oral Tablet Telmisartan 20 MG Telmisartan 20 MG 03/14/2020 12:00:00 AM EDT active Telmisar mock 20 MG eCW1 ([facility]) telmisartan 20 MG Oral Tablet Telmisartan 20 MG Telmisartan 20 MG 03/14/2020 12:00:00 AM EDT active Telmisar mock 20 MG eCW1 ([facility]) Hydroxychloroquine Sulfate 200 MG Oral Tablet Hydroxychloroq uine Sulfate 200 MG 02/28/2020 12:00:00 AM EDT active Hydroxychloroquine Sulfate 200 MG eCW1 ([facility]) Hydroxychloroquine Sulfate 200 MG Oral Tablet Hydroxychloroq uine Sulfate 200 MG 02/28/2020 12:00:00 AM EDT active Hydroxychloroquine Sulfate 200 MG eCW1 ([facility]) Hydroxychloroquine Sulfate 200 MG Oral Tablet Hydroxychloroq uine Sulfate 200 MG 02/28/2020 12:00:00 AM EDT active Hydroxychloroquine Sulfate 200 MG eCW1 ([facility]) Hydroxychloroquine Sulfate 200 MG Oral Tablet Hydroxychloroq uine Sulfate 200 MG 02/28/2020 12:00:00 AM EDT active Hydroxychloroquine Sulfate 200 MG eCW1 ([facility]) Hydroxychloroquine Sulfate 200 MG Oral Tablet Hydroxychloroq uine Sulfate 200 MG 02/28/2020 12:00:00 AM EDT active Hydroxychloroquine Sulfate 200 MG eCW1 ([facility]) Hydroxychloroquine Sulfate 200 MG Oral Tablet Hydroxychloroq uine Sulfate 200 MG 02/28/2020 12:00:00 AM EDT active as directed eCW1 ([facility]) Hydroxychloroquine Sulfate 200 MG Oral Tablet Hydroxychloroq uine Sulfate 200 MG 02/28/2020 12:00:00 AM EDT active Hydroxychloroquine Sulfate 200 MG eCW1 ([facility]) Hydroxychloroquine Sulfate 200 MG Oral Tablet Hydroxychloroq uine Sulfate 200 MG 02/28/2020 12:00:00 AM EDT active Hydroxychloroquine Sulfate 200 MG eCW1 ([facility]) Hydroxychloroquine Sulfate 200 MG Oral Tablet Hydroxychloroq uine Sulfate 200 MG 02/28/2020 12:00:00 AM EDT active Hydroxychloroquine Sulfate 200 MG eCW1 ([facility]) Hydroxychloroquine Sulfate 200 MG Oral Tablet Hydroxychloroq uine Sulfate 200 MG 02/28/2020 12:00:00 AM EDT active Hydroxychloroquine Sulfate 200 MG eCW1 ([facility]) Hydroxychloroquine Sulfate 200 MG Oral Tablet Hydroxychloroq uine Sulfate 200 MG 02/28/2020 12:00:00 AM EDT active Hydroxychloroquine Sulfate 200 MG eCW1 ([facility]) Hydroxychloroquine Sulfate 200 MG Oral Tablet Hydroxychloroq uine Sulfate 200 MG 02/28/2020 12:00:00 AM EDT active Hydroxychloroquine Sulfate 200 MG eCW1 ([facility]) Hydroxychloroquine Sulfate 200 MG Oral Tablet Hydroxychloroq uine Sulfate 200 MG 02/28/2020 12:00:00 AM EDT active Hydroxychloroquine Sulfate 200 MG eCW1 ([facility]) Hydroxychloroquine Sulfate 200 MG Oral Tablet Hydroxychloroq uine Sulfate 200 MG 02/28/2020 12:00:00 AM EDT active Hydroxychloroquine Sulfate 200 MG eCW1 ([facility]) Hydroxychloroquine Sulfate 200 MG Oral Tablet Hydroxychloroq uine Sulfate 200 MG 02/28/2020 12:00:00 AM EDT active as directed eCW1 ([facility]) Hydroxychloroquine Sulfate 200 MG Oral Tablet Hydroxychloroq uine Sulfate 200 MG 02/28/2020 12:00:00 AM EDT active Hydroxychloroquine Sulfate 200 MG eCW1 ([facility]) Hydroxychloroquine Sulfate 200 MG Oral Tablet Hydroxychloroq uine Sulfate 200 MG 02/28/2020 12:00:00 AM EDT active Hydroxychloroquine Sulfate 200 MG eCW1 ([facility]) Hydroxychloroquine Sulfate 200 MG Oral Tablet Hydroxychloroq uine Sulfate 200 MG 02/28/2020 12:00:00 AM EDT active Hydroxychloroquine Sulfate 200 MG eCW1 ([facility]) Hydroxychloroquine Sulfate 200 MG Oral Tablet Hydroxychloroq uine Sulfate 200 MG 02/28/2020 12:00:00 AM EDT active Hydroxychloroquine Sulfate 200 MG eCW1 ([facility]) Hydroxychloroquine Sulfate 200 MG Oral Tablet Hydroxychloroq uine Sulfate 200 MG 02/28/2020 12:00:00 AM EDT active Hydroxychloroquine Sulfate 200 MG eCW1 ([facility]) Hydroxychloroquine Sulfate 200 MG Oral Tablet Hydroxychloroq uine Sulfate 200 MG 02/28/2020 12:00:00 AM EDT active Hydroxychloroquine Sulfate 200 MG eCW1 ([facility]) Hydroxychloroquine Sulfate 200 MG Oral Tablet Hydroxychloroq uine Sulfate 200 MG 02/28/2020 12:00:00 AM EDT active Hydroxychloroquine Sulfate 200 MG eCW1 ([facility]) Hydroxychloroquine Sulfate 200 MG Oral Tablet Hydroxychloroq uine Sulfate 200 MG 02/28/2020 12:00:00 AM EDT active Hydroxychloroquine Sulfate 200 MG eCW1 ([facility]) Hydroxychloroquine Sulfate 200 MG Oral Tablet Hydroxychloroq uine Sulfate 200 MG 02/28/2020 12:00:00 AM EDT active Hydroxychloroquine Sulfate 200 MG eCW1 ([facility]) Hydroxychloroquine Sulfate 200 MG Oral Tablet Hydroxychloroq uine Sulfate 200 MG 02/28/2020 12:00:00 AM EDT active Hydroxychloroquine Sulfate 200 MG eCW1 ([facility]) Hydroxychloroquine Sulfate 200 MG Oral Tablet Hydroxychloroq uine Sulfate 200 MG 02/28/2020 12:00:00 AM EDT active Hydroxychloroquine Sulfate 200 MG eCW1 ([facility]) Hydroxychloroquine Sulfate 200 MG Oral Tablet Hydroxychloroq uine Sulfate 200 MG 02/28/2020 12:00:00 AM EDT active Hydroxychloroquine Sulfate 200 MG eCW1 ([facility]) Hydroxychloroquine Sulfate 200 MG Oral Tablet Hydroxychloroq uine Sulfate 200 MG 02/28/2020 12:00:00 AM EDT active Hydroxychloroquine Sulfate 200 MG eCW1 ([facility]) Hydroxychloroquine Sulfate 200 MG Oral Tablet Hydroxychloroq uine Sulfate 200 MG 02/28/2020 12:00:00 AM EDT active Hydroxychloroquine Sulfate 200 MG eCW1 ([facility]) Hydroxychloroquine Sulfate 200 MG Oral Tablet Hydroxychloroq uine Sulfate 200 MG 02/28/2020 12:00:00 AM EDT active Hydroxychloroquine Sulfate 200 MG eCW1 ([facility]) Hydroxychloroquine Sulfate 200 MG Oral Tablet Hydroxychloroq uine Sulfate 200 MG 02/28/2020 12:00:00 AM EDT active Hydroxychloroquine Sulfate 200 MG eCW1 ([facility]) Hydroxychloroquine Sulfate 200 MG Oral Tablet Hydroxychloroq uine Sulfate 200 MG 02/28/2020 12:00:00 AM EDT active Hydroxychloroquine Sulfate 200 MG eCW1 ([facility]) Hydroxychloroquine Sulfate 200 MG Oral Tablet Hydroxychloroq uine Sulfate 200 MG 02/28/2020 12:00:00 AM EDT active Hydroxychloroquine Sulfate 200 MG eCW1 ([facility]) Hydroxychloroquine Sulfate 200 MG Oral Tablet Hydroxychloroq uine Sulfate 200 MG 02/28/2020 12:00:00 AM EDT active Hydroxychloroquine Sulfate 200 MG eCW1 ([facility]) Hydroxychloroquine Sulfate 200 MG Oral Tablet Hydroxychloroq uine Sulfate 200 MG 02/28/2020 12:00:00 AM EDT active Hydroxychloroquine Sulfate 200 MG eCW1 ([facility]) Hydroxychloroquine Sulfate 200 MG Oral Tablet Hydroxychloroq uine Sulfate 200 MG 02/28/2020 12:00:00 AM EDT active Hydroxychloroquine Sulfate 200 MG eCW1 ([facility]) Omeprazole 40 MG Delayed Release Oral Capsule Omeprazole 40 MG 02/24/2020 12:00:00 AM EDT 1.0 {capsule} active O meprazole 40 MG eCW1 ([facility]) Omeprazole 40 MG Delayed Release Oral Capsule Omeprazole 40 MG 02/24/2020 12:00:00 AM EDT 1.0 {capsule} active O meprazole 40 MG eCW1 ([facility]) Omeprazole 40 MG Delayed Release Oral Capsule Omeprazole 40 MG 02/24/2020 12:00:00 AM EDT 1.0 {capsule} active O meprazole 40 MG eCW1 ([facility]) Omeprazole 40 MG Delayed Release Oral Capsule Omeprazole 40 MG 02/24/2020 12:00:00 AM EDT active 1 capsul e eCW1 ([facility]) Omeprazole 40 MG Delayed Release Oral Capsule Omeprazole 40 MG 02/24/2020 12:00:00 AM EDT 1.0 {capsule} active O meprazole 40 MG eCW1 ([facility]) Omeprazole 40 MG Delayed Release Oral Capsule Omeprazole 40 MG 02/24/2020 12:00:00 AM EDT 1.0 {capsule} active O meprazole 40 MG eCW1 ([facility]) Omeprazole 40 MG Delayed Release Oral Capsule Omeprazole 40 MG 02/24/2020 12:00:00 AM EDT 1.0 {capsule} active O meprazole 40 MG eCW1 ([facility]) Omeprazole 40 MG Delayed Release Oral Capsule Omeprazole 40 MG 02/24/2020 12:00:00 AM EDT 1.0 {capsule} active O meprazole 40 MG eCW1 ([facility]) Omeprazole 40 MG Delayed Release Oral Capsule Omeprazole 40 MG 02/24/2020 12:00:00 AM EDT 1.0 {capsule} active O meprazole 40 MG eCW1 ([facility]) Omeprazole 40 MG Delayed Release Oral Capsule Omeprazole 40 MG 02/24/2020 12:00:00 AM EDT 1.0 {capsule} active O meprazole 40 MG eCW1 ([facility]) Omeprazole 40 MG Delayed Release Oral Capsule Omeprazole 40 MG 02/24/2020 12:00:00 AM EDT active 1 capsul e eCW1 ([facility]) Omeprazole 40 MG Delayed Release Oral Capsule Omeprazole 40 MG 02/24/2020 12:00:00 AM EDT 1.0 {capsule} active O meprazole 40 MG eCW1 ([facility]) Omeprazole 40 MG Delayed Release Oral Capsule Omeprazole 40 MG 02/24/2020 12:00:00 AM EDT 1.0 {capsule} active O meprazole 40 MG eCW1 ([facility]) Omeprazole 40 MG Delayed Release Oral Capsule Omeprazole 40 MG 02/24/2020 12:00:00 AM EDT 1.0 {capsule} active O meprazole 40 MG eCW1 ([facility]) Melatonin 5 MG Melatonin 5 MG 02/21/2020 12:00:00 AM EDT 1.0 {tablet_at_bedtime_as_needed_with_food} active Melatonin 5 MG eCW1 ([facility]) Melatonin 5 MG Melatonin 5 MG 02/21/2020 12:00:00 AM EDT 1.0 {tablet_at_bedtime_as_needed_with_food} active Melatonin 5 MG eCW1 ([facility]) Melatonin 5 MG Melatonin 5 MG 02/21/2020 12:00:00 AM EDT active 1 tablet at bedtime as needed with food eCW1 ([facility]) Melatonin 5 MG Melatonin 5 MG 02/21/2020 12:00:00 AM EDT 1.0 {tablet_at_bedtime_as_needed_with_food} active Melatonin 5 MG eCW1 ([facility]) Melatonin 5 MG Melatonin 5 MG 02/21/2020 12:00:00 AM EDT 1.0 {tablet_at_bedtime_as_needed_with_food} active Melatonin 5 MG eCW1 ([facility]) Melatonin 5 MG Melatonin 5 MG 02/21/2020 12:00:00 AM EDT 1.0 {tablet_at_bedtime_as_needed_with_food} active Melatonin 5 MG eCW1 ([facility]) Melatonin 5 MG Melatonin 5 MG 02/21/2020 12:00:00 AM EDT 1.0 {tablet_at_bedtime_as_needed_with_food} active Melatonin 5 MG eCW1 ([facility]) Melatonin 5 MG Melatonin 5 MG 02/21/2020 12:00:00 AM EDT 1.0 {tablet_at_bedtime_as_needed_with_food} active Melatonin 5 MG eCW1 ([facility]) Melatonin 5 MG Melatonin 5 MG 02/21/2020 12:00:00 AM EDT 1.0 {tablet_at_bedtime_as_needed_with_food} active Melatonin 5 MG eCW1 ([facility]) Melatonin 5 MG Melatonin 5 MG 02/21/2020 12:00:00 AM EDT active 1 tablet at bedtime as needed with food eCW1 ([facility]) Melatonin 5 MG Melatonin 5 MG 02/21/2020 12:00:00 AM EDT 1.0 {tablet_at_bedtime_as_needed_with_food} active Melatonin 5 MG eCW1 ([facility]) Melatonin 5 MG Melatonin 5 MG 02/21/2020 12:00:00 AM EDT 1.0 {tablet_at_bedtime_as_needed_with_food} active Melatonin 5 MG eCW1 ([facility]) Melatonin 5 MG Melatonin 5 MG 02/21/2020 12:00:00 AM EDT 1.0 {tablet_at_bedtime_as_needed_with_food} active Melatonin 5 MG eCW1 ([facility]) Melatonin 5 MG Melatonin 5 MG 02/21/2020 12:00:00 AM EDT 1.0 {tablet_at_bedtime_as_needed_with_food} active Melatonin 5 MG eCW1 ([facility]) Famotidine 20 MG Oral Tablet Famotidine 20 MG 11/14/2019 12:00:[address] active 1 tablet at bedtime as ne eded eCW1 ([facility]) Famotidine 20 MG Oral Tablet Famotidine 20 MG 11/14/2019 12:00:[address] active 1 tablet eCW1 ([facility]) Insurance Providers Payer name Policy type / Coverage type Policy ID Covered constitution party ID Covered constitution party's relationship to poe Policy Poe Plan Information EMEDNY [id number] SP [id number] MEDICARE [id number] SP [id number] MEDICARE C [id number] S [id number] MEDICAID M [id number] Medicaid P [id number] S [id number] MEDICAID [id number] SP [id number] ANSI-Medicaid [id number] ANSI-Medicare Part B [id number] ANSI-Medicaid [id number] ANSI-Medicare Part B [id number] ANSI-Medicaid [id number] ANSI-Medicare Part B [id number] ANSI-Medicare Part B [id number] ANSI-Medicaid [id number] ANSI-Medicaid [id number] ANSI-Medicare Part B [id number] ANSI-Medicare Part B [id number] ANSI-Medicaid [id number] ANSI-Medicare Part B [id number] ANSI-Medicaid [id number] ANSI-Medicaid [id number] ANSI-Medicare Part B [id number] ANSI-Medicare Part B [id number] ANSI-Medicaid [id number] ANSI-Medicare Part B [id number] ANSI-Medicaid [id number] ANSI-Medicaid [id number] ANSI-Medicare Part B [id number] ANSI-Medicare Part B [id number] ANSI-Medicaid [id number] MEDICARE [id number] SP [id number] MEDICAID [id number] SP [id number] ANSI-Medicare Part B [id number] ANSI-Medicaid [id number] ANSI-Medicare Part B [id number] ANSI-Medicaid [id number] ANSI-Medicaid [id number] ANSI-Medicare Part B [id number] ANSI-Medicaid [id number] ANSI-Medicare Part B [id number] ANSI-Medicaid [id number] ANSI-Medicare Part B [id number] ANSI-Medicaid [id number] ANSI-Medicare Part B [id number] ANSI-Medicaid [id number] ANSI-Medicare Part B [id number] Medicaid [place] Medigap Part B [id number] Self [id number] Medicare [facility] Medicare Primary [id number] Self [id number] ANSI-Medicaid [id number] ANSI-Medicare Part B [id number] ANSI-Medicare Part B [id number] ANSI-Medicaid [id number] ANSI-Medicare Part B [id number] ANSI-Medicaid [id number] ANSI-Medicare Part B [id number] ANSI-Medicaid [id number] ANSI-Medicaid [id number] ANSI-Medicare Part B [id number] ANSI-Medicaid [id number] ANSI-Medicare Part B [id number] ANSI-Medicaid [id number] ANSI-Medicare Part B [id number] MEDICAID [id number] SP [id number] MEDICARE [id number] ANSI-Medicaid [id number] ANSI-Medicare Part B [id number] ANSI-Medicare Part B [id number] ANSI-Medicaid [id number] ANSI-Medicare Part B [id number] ANSI-Medicaid [id number] ANSI-Medicaid [id number] ANSI-Medicare Part B [id number] ANSI-Medicaid [id number] ANSI-Medicare Part B [id number] ANSI-Medicaid [id number] ANSI-Medicare Part B [id number] ANSI-Medicare Part B [id number] ANSI-Medicaid [id number] ANSI-Medicare Part B [id number] ANSI-Medicaid [id number] Medicaid [place] Med[place] Part B [id number] Self [id number] Medicare [facility] Medicare Primary [id number] Self [id number] Medicaid Medigap Part B [id number] Self [id number] Medicare [facility] Medicare Primary [id number] Self [id number] Medicaid Medigap Part B [id number] Self [id number] [place] Primary [id number] Self [id number] Medicaid Medigap Part B [id number] Self [id number] [place] Primary [id number] Self [id number] MEDICARE C [id number] S [id number] A Medicaid Medigap Part B [id number] Self [id number] [place] Primary [id number] Self [id number] Medicaid Medigap Part B [id number] Self [id number] [place] Primary [id number] Self [id number] Medicaid Medigap Part B [id number] Self [id number] [place] Primary [id number] Self [id number] [place] Medicare Primary [id number] Self [id number] Medicaid Medigap Part B [id number] Self [id number] [place] Primary [id number] Self [id number] MEDICAID M [id number] Self [id number] Medicaid Medicaid [id number] Self [id number] Medicaid Medicaid [id number] Self [id number] Medicaid Medicaid [id number] Self [id number] Medicaid Medicaid [id number] Self [id number] MEDICAID [id number] MEDICAID [id number] SP [id number] [facility] MCDHMO UNAVAILABLE SP UNAVAILABLE Medicaid Medicaid 1 1 Self 1 1 [facility] I [id number] Self [id number] [facility] Community Plan(Medicaid) [id number] 18 [id number] [facility] I [id number] Self [id number] [facility] I [id number] Self [id number] MEDICAID M [id number] Self [id number] [facility] [id number] Self [id number] [facility] Community Plan [id number] 18 [id number] [facility] PLAN [facility] [id number] Problems, Conditions, and Diagnoses Code Display Name Description Problem Type Effective Dates Data Source(s) Z51.81 [id number] Encounter for therapeutic drug level rinku toring Problem 08/22/2020 12:00:00 AM EDT eCW1 ([facility]) N18.3 Chronic kidney disease stage 3 Chronic k idney disease (CKD), stage 3 (moderate) Problem 08/20/2020 12:00:00 AM EDT eCW1 ([facility]) D50.9 [id number] Iron deficiency anemia, unspecif ied iron deficiency anemia type Problem 04/03/2020 12:00:00 AM EDT eCW1 ([facility]) D12.6 029956178 Tubulovillous adenoma of colon Problem 04/03/2020 12:00:00 AM EDT eCW1 ([facility]) D50.9 50651532 Iron deficiency anemia, unspecif ied iron deficiency anemia type Problem 04/03/2020 12:00:00 AM EDT eCW1 ([facility]) D12.6 384501875 Tubulovillous adenoma of colon Problem 04/03/2020 12:00:00 AM EDT eCW1 ([facility]) I48.0 954934736 Paroxysmal atrial fibrillation Problem 02/17/2020 12:00:00 AM EDT eCW1 ([facility]) I48.0 107934148 Paroxysmal atrial fibrillation Problem 02/17/2020 12:00:00 AM EDT eCW1 ([facility]) Surgeries/Procedures Procedure Description Date Indications Data Source(s) COLSC FLX PROX SPLENIC FLXR RMVL LES SNARE TQ 04/10/20 12:00:00 AM EDT [facility] ([facility]) Office Visit, Est Pt., Level 4 PC 03/20/2020 12:00:00 AM EDT eCW1 ([facility]) AntiCoag Mgmt Pt for Warfarin 03/19/2020 12:00:00 AM E DT eCW1 ([facility]) PHYSICIAN TELEPHONE EVALUATION 5-10 MIN 03/19/2020 12: 00:00 AM EDT eCW1 ([facility]) PHYSICIAN TELEPHONE EVALUATION 11-20 MIN 02/17/2020 12 :00:00 AM EDT eCW1 ([facility]) PROTHROMBIN TIME 11/01/2019 12:00:00 AM EST eCW1 ([facility]) Office Visit, Est Pt., Level 3 PC 10/03/2019 12:00:00 AM EST eCW1 ([facility]) Results ID Date Data Source [id number] 11/16/2020 10:00:00 AM EST [facility] Name Value Range Interpretation Code Description Data Cintia rce(s) Supporting Document(s) SARS coronavirus 2 RNA Not Detected [facility] [place] This lab was ordered by [facility] and reported by [facility]. ID Date Data Source [id number] 11/12/2020 06:00:00 AM EST [facility] Name Value Range Interpretation Code Description Data Cintia rce(s) Supporting Document(s) SARS coronavirus 2 RNA Not Detected [facility] [place] This lab was ordered by [facility] and reported by [facility]. ID Date Data Source CBC with Differential 11/07/2020 12:00:00 AM EST eCW1 ([facility]) Name Value Range Interpretation Code Description Data Cintia rce(s) Supporting Document(s) 7.4 4.0-10.0 WHITE BLOOD COUNT eCW1 (On license of [facility]) 4.81 4.00-5.40 RED BLOOD COUNT eCW1 ([facility]) 12.4 12.0-15.5 HEM[facility]GLOBIN [facility] 40.7 36.0-47.0 HEMATOCRIT eCW1 ([facility] 84.6 80.0-96.0 MEAN CORPUSCULAR VOLUME e CW1 ([facility]) 30.5 32.0-36.5 MEAN CORPUSCULAR HGB CONC eCW1 ([facility]) 25.8 27.0-33.0 MEAN CORPUSCULAR HEMOGLOB IN eCW1 ([facility]) 41.1 24.0-44.0 LYMPH % eCW1 ([facility]) 43.3 36.0-66.0 NEUTROPHILS % eCW1 ([facility]) 15.9 11.5-14.5 RED CELL DISTRIBUTION WID TH eCW1 ([facility]) 310 150-450 PLATELET COUNT, AUTOMATED eCW1 ([facility]) 8.7 0.0-5.0 MONO % eCW1 ([facility]) 0.5 0.0-1.0 BASO % eCW1 ([facility]) 6.1 0.0-3.0 EOS % eCW1 ([facility]) 3.2 1.5-8.5 NEUTROPHILS # eCW1 ([facility]) 0.5 0.0-0.5 EOS # [facility] [facility]) 0.0 0.0-0.2 BASO # eCW1 ([facility]) 0.6 0.0-0.8 MONO # eCW1 ([facility]) 3.0 1.5-5.0 LYMPH # eCW1 ([facility]) ID Date Data Source NT-PRO BNP 11/07/2020 12:00:00 AM EST eCW1 ([facility]) Name Value Range Interpretation Code Description Data Cintia rce(s) Supporting Document(s) 25 <125 NT[facility]PRO [facility] ID Date Data Source [id number] 11/05/2020 07:30:00 AM EST [facility] Name Value Range Interpretation Code Description Data Cintia rce(s) Supporting Document(s) SARS coronavirus 2 RNA Not Detected [facility] [place] This lab was ordered by [facility] and reported by [facility]. ID Date Data Source [id number] 10/29/2020 07:35:00 AM EST [facility] Name Value Range Interpretation Code Description Data Cintia rce(s) Supporting Document(s) SARS coronavirus 2 RNA [facility] This lab was ordered by [facility] and reported by [facility]. ID Date Data Source [id number] 10/22/2020 09:30:00 AM EST [facility] Name Value Range Interpretation Code Description Data Cintia rce(s) Supporting Document(s) SARS coronavirus 2 RNA [facility] This lab was ordered by [facility] and reported by [facility]. ID Date Data Source [id number] 10/17/2020 11:35:00 AM EST [facility] Name Value Range Interpretation Code Description Data Cintia rce(s) Supporting Document(s) SARS coronavirus 2 RNA [facility] This lab was ordered by [facility] and reported by [facility]. ID Date Data Source [id number] 10/17/2020 12:00:00 AM EST [facility] Name Value Range Interpretation Code Description Data Cintia rce(s) Supporting Document(s) SARS-CoV2 Rapid Antigen [facility] This lab was ordered by [facility] and reported by [facility]. ID Date Data Source [id number] 10/12/2020 02:42:00 PM EST [facility] Name Value Range Interpretation Code Description Data Cintia rce(s) Supporting Document(s) SARS coronavirus 2 RNA [facility] This lab was ordered by [facility] and reported by [facility]. ID Date Data Source [id number] 04/19/2020 12:00:00 AM EDT [facility] Name Value Range Interpretation Code Description Data Cintia rce(s) Supporting Document(s) 2019-nCoV N XXX Ql ALYSHA N2 [facility] [place] This lab was ordered by [facility] and reported by [facility]. ID Date Data Source [id number] 04/10/2020 01:43:00 PM EDT [facility] ([facility]) Name Value Range Interpretation Code Description Data Cintia rce(s) Supporting Document(s) Surgical pathology study Laboratory test result [facility]) FINAL DIAGNOSIS Proximal ascending colon, tubulovillous adenoma, biopsy/incomplete resection: Multiple fragments of villous and tubulovillous adenoma. 04/12/2020 - 143 CLINICAL DIAGNOSIS Tubulovillous adenoma, anemia, ascending colon polyp 04/11/2020 - 1057 GROSS DIAGNOSIS Received in formalin labeled "cold snare tubulovillous adenoma proximal ascending colon" is an approximately 1.5 x 1 x 0.8 cm aggregate of polyp fragments. Submitted all in one. LISSETTE 04/12/2020 - 143 Signed Nataly Frias MD 04/12/2020 143 ID Date Data Source [id number] 04/07/2020 12:00:00 AM EDT [facility] Name Value Range Interpretation Code Description Data Cintia rce(s) Supporting Document(s) SARS CORONAVIRUS 2 RNA [facility] This lab was ordered by [facility] and reported by [facility]. ID Date Data Source Comprehensive Metabolic Profile (CMP) 10/03/2019 12:00:00 AM EST eCW1 ([facility]) Name Value Range Interpretation Code Description Data Cintia rce(s) Supporting Document(s) 63 70-100 GLUCOSE, FASTING eCW1 ([facility]) 141 136-145 SODIUM LEVEL eCW1 ([facility]) 14 7-18 BLOOD UREA NITROGEN eCW1 ([facility]) 56.3 >45 GLOMERULAR FILTRATION RATE eCW 1 ([facility]) 1.05 0.55-1.30 CREATININE FOR GFR eCW1 ([facility]) 26 21-32 CARBON DIOXIDE LEVEL eCW1 ([facility]) 9.4 8.8-10.2 CALCIUM LEVEL eCW1 ([facility]) 4.0 3.5-5.1 POTASSIUM SERUM eCW1 ([facility]) 104 98-107 CHLORIDE LEVEL eCW1 ([facility]) 30 12-78 ALT/SGPT eCW1 ([facility]) 22 7-37 AST/SGOT eCW1 ([facility]) 81 45-117 ALKALINE PHOSPHATASE eCW1 ([facility]) 3.9 3.2-5.2 ALBUMIN eCW1 ([facility]) 1.18 1.00-1.93 ALBUMIN/GLOBULIN RATIO eCW1 ([facility]) 7.2 6.4-8.2 TOTAL PROTEIN eCW1 ([facility]) 0.4 0.2-1.0 BILIRUBIN,TOTAL eCW1 ([facility]) ID Date Data Source [id number] 10/03/2019 12:00:00 AM EST eCW1 ([facility]) Name Value Range Interpretation Code Description Data Cintia rce(s) Supporting Document(s) Hemoglobin A1c/Hemoglobin.total in Blood 8.1 HEMOGLOBIN A1c eCW1 ([facility]) Procedure Social History Code Duration Value Status Description Data Source(s ) Smoking 11/07/2020 12:00:00 AM EST Former Smoker completed Former Smoker eCW1 ([facility]) Smoking 11/07/2020 12:00:00 AM EST Former Smoker completed Former Smoker eCW1 ([facility]) Smoking 11/07/2020 12:00:00 AM EST Former Smoker completed Former Smoker eCW1 ([facility]) Smoking 11/07/2020 12:00:00 AM EST Former Smoker completed Former Smoker eCW1 ([facility]) Smoking 11/07/2020 12:00:00 AM EST Former Smoker completed Former Smoker eCW1 ([facility]) Smoking 09/26/2020 12:00:00 AM EST Former Smoker completed Former Smoker eCW1 ([facility]) Smoking 09/26/2020 12:00:00 AM EST Former Smoker completed Former Smoker eCW1 ([facility]) Smoking 09/26/2020 12:00:00 AM EST Former Smoker completed Former Smoker eCW1 ([facility]) Smoking 09/26/2020 12:00:00 AM EST Former Smoker completed Former Smoker eCW1 ([facility]) Smoking 09/26/2020 12:00:00 AM EST Former Smoker completed Former Smoker eCW1 ([facility]) Smoking 09/26/2020 12:00:00 AM EST Former Smoker completed Former Smoker eCW1 ([facility]) Smoking 09/26/2020 12:00:00 AM EST Former Smoker completed Former Smoker eCW1 ([facility]) Smoking 09/26/2020 12:00:00 AM EST Former Smoker completed Former Smoker eCW1 ([facility]) Smoking 09/17/2020 12:00:00 AM EST Former Smoker completed Former Smoker eCW1 ([facility]) Smoking 09/17/2020 12:00:00 AM EST Former Smoker completed Former Smoker eCW1 ([facility]) Smoking 09/17/2020 12:00:00 AM EST Former Smoker completed Former Smoker eCW1 ([facility]) Smoking 09/17/2020 12:00:00 AM EST Former Smoker completed Former Smoker eCW1 ([facility]) Smoking 08/20/2020 12:00:00 AM EDT Former Smoker completed Former Smoker eCW1 ([facility]) Smoking 08/20/2020 12:00:00 AM EDT Former Smoker completed Former Smoker eCW1 ([facility]) Smoking 08/20/2020 12:00:00 AM EDT Former Smoker completed Former Smoker eCW1 ([facility]) Smoking 08/20/2020 12:00:00 AM EDT Former Smoker completed Former Smoker eCW1 ([facility]) Smoking 08/20/2020 12:00:00 AM EDT Former Smoker completed Former Smoker eCW1 ([facility]) Smoking 04/03/2020 12:00:00 AM EDT Former Smoker completed Former Smoker eCW1 ([facility]) Smoking 04/03/2020 12:00:00 AM EDT Former Smoker completed Former Smoker eCW1 ([facility]) Smoking 04/03/2020 12:00:00 AM EDT Former Smoker completed Former Smoker eCW1 ([facility]) Smoking 04/03/2020 12:00:00 AM EDT Former Smoker completed Former Smoker eCW1 ([facility]) Smoking 04/03/2020 12:00:00 AM EDT Former Smoker completed Former Smoker eCW1 ([facility]) Smoking 04/03/2020 12:00:00 AM EDT Former Smoker completed Former Smoker eCW1 ([facility]) Smoking 04/03/2020 12:00:00 AM EDT Former Smoker completed Former Smoker eCW1 ([facility]) Smoking 04/03/2020 12:00:00 AM EDT Former Smoker completed Former Smoker eCW1 ([facility]) Smoking 04/03/2020 12:00:00 AM EDT Former Smoker completed Former Smoker eCW1 ([facility]) Smoking 04/03/2020 12:00:00 AM EDT Former Smoker completed Former Smoker eCW1 ([facility]) Smoking 04/03/2020 12:00:00 AM EDT Former Smoker completed Former Smoker eCW1 ([facility]) Vital Signs ID Date Data Source UNK Name Value Range Interpretation Code Description Data Source(s) Diastolic blood pressure 74 mm[Hg] 74 mm[Hg] eCW1 ([facility]) Systolic blood pressure 124 mm[Hg] 124 mm[Hg] e CW1 ([facility]) Body temperature 98.1 [degF] 98.1 [degF] eCW1 ( [facility]) Respiratory rate 18 /min 18 /min eCW1 ([facility]) Heart rate 88 /min 88 /min eCW1 ([facility]) Body mass index (BMI) [Ratio] 30.56 kg/m2 30.56 kg/m2 eCW1 ([facility]) Body height 68 [in_i] 68 [in_i] eCW1 ([facility]) Body weight 201 [lb_av] 201 [lb_av] eCW1 ([facility]) Diastolic blood pressure 78 mm[Hg] 78 mm[Hg] eCW1 ([facility]) Systolic blood pressure 144 mm[Hg] 144 mm[Hg] e CW1 ([facility]) Body temperature 98.6 [degF] 98.6 [degF] eCW1 ( [facility]) Respiratory rate 16 /min 16 /min eCW1 ([facility]) Heart rate 92 /min 92 /min eCW1 ([facility]) Body mass index (BMI) [Ratio] 30.56 kg/m2 30.56 kg/m2 eCW1 ([facility]) Body height 68 [in_i] 68 [in_i] eCW1 ([facility]) Body weight 201 [lb_av] 201 [lb_av] eCW1 ([facility]) Diastolic blood pressure 74 mm[Hg] 74 mm[Hg] eCW1 ([facility]) Systolic blood pressure 124 mm[Hg] 124 mm[Hg] e CW1 ([facility]) Body temperature 97.1 [degF] 97.1 [degF] eCW1 ( [facility]) Respiratory rate 18 /min 18 /min eCW1 ([facility]) Heart rate 95 /min 95 /min eCW1 ([facility]) Body mass index (BMI) [Ratio] 30.07 kg/m2 30.07 kg/m2 eCW1 ([facility]) Body height 68 [in_i] 68 [in_i] eCW1 ([facility]) Body weight 197.8 [lb_av] 197.8 [lb_av] eCW1 ([facility]) Systolic blood pressure 140 mm[Hg] 140 mm[Hg] M EDENT ([facility]) Body weight 203.00 [lb_av] 203.00 [lb_av] MEDEN T ([facility]) Body height 66 [in_i] 66 [in_i] [facility]) 5'6" Body weight 92.081 kg 92.081 kg [facility] ([facility] Body mass index (BMI) [Ratio] 32.8 kg/m2 32.8 k g/m2 [facility] ([facility]) Heart rate 80 /min 80 /min [facility] ([facility]) Diastolic blood pressure 91 mm[Hg] 91 mm[Hg] [facility] ([facility]) Diastolic blood pressure 62 mm[Hg] 62 mm[Hg] eCW1 ([facility]) Systolic blood pressure 120 mm[Hg] 120 mm[Hg] e CW1 ([facility]) Body temperature 99.0 [degF] 99.0 [degF] eCW1 ( [facility]) Respiratory rate 20 /min 20 /min eCW1 ([facility]) Heart rate 90 /min 90 /min eCW1 ([facility]) Body mass index (BMI) [Ratio] 30.38 kg/m2 30.38 kg/m2 eCW1 ([facility]) Body height 68 [in_i] 68 [in_i] eCW1 ([facility]) Body weight 199.8 [lb_av] 199.8 [lb_av] eCW1 ([facility]) Body weight 92.081 kg 92.081 kg MEDENT ([facility]) Body mass index (BMI) [Ratio] 32.8 kg/m2 32.8 k g/m2 [facility] ([facility]) Heart rate 83 /min 83 /min [facility] ([facility]) Diastolic blood pressure 75 mm[Hg] 75 mm[Hg] MEDENT ([facility]) Systolic blood pressure 114 mm[Hg] 114 mm[Hg] M EDENT ([facility]) Body weight 203.00 [lb_av] 203.00 [lb_av] MEDEN T ([facility]) Temp 96.8 Body height 66 [in_i] 66 [in_i] [facility] 5'6" Diastolic blood pressure 66 mm[Hg] 66 mm[Hg] eCW1 ([facility]) Systolic blood pressure 118 mm[Hg] 118 mm[Hg] e CW1 ([facility]) Body temperature 96.4 [degF] 96.4 [degF] eCW1 ( [facility]) Respiratory rate 17 /min 17 /min eCW1 ([facility]) Heart rate 102 /min 102 /min eCW1 ([facility]) Body mass index (BMI) [Ratio] 30.56 kg/m2 30.56 kg/m2 eCW1 ([facility]) Body height 68 [in_us] 68 [in_us] eCW1 ([facility]) Body weight Measured 201 [lb_av] 201 [lb_av] eC W1 ([facility]) Diastolic blood pressure 76 mm[Hg] 76 mm[Hg] eCW1 ([facility]) Systolic blood pressure 118 mm[Hg] 118 mm[Hg] e CW1 ([facility]) Body temperature 96.6 [degF] 96.6 [degF] eCW1 ( [facility]) Respiratory rate 18 /min 18 /min eCW1 ([facility]) Heart rate 100 /min 100 /min eCW1 ([facility]) Body mass index (BMI) [Ratio] 29.92 kg/m2 29.92 kg/m2 eCW1 ([facility]) Body height 68 [in_us] 68 [in_us] eCW1 ([facility]) Body weight Measured 196.8 [lb_av] 196.8 [lb_av ] eCW1 ([facility]) Patient Treatment Plan of Care Planned Activity Planned Date Details Description Data Source (s) BD AutoShield Duo 30G X 5 MM 11/13/2020 12:00:00 AM EST eCW1 ([facility]) BD AutoShield Duo 30G X 5 MM 11/13/2020 12:00:00 AM EST eCW1 ([facility]) Warfarin Sodium 5 MG Oral Tablet 11/09/2020 12:00:00 AM EST eCW1 ([facility]) Warfarin Sodium 5 MG Oral Tablet 11/09/2020 12:00:00 AM EST eCW1 ([facility]) Warfarin Sodium 5 MG Oral Tablet 11/09/2020 12:00:00 AM EST eCW1 ([facility]) Warfarin Sodium 5 MG Oral Tablet 11/09/2020 12:00:00 AM EST eCW1 ([facility]) Warfarin Sodium 5 MG Oral Tablet 11/09/2020 12:00:00 AM EST eCW1 ([facility]) Warfarin Sodium 5 MG Oral Tablet 10/08/2020 12:00:00 AM EST eCW1 ([facility]) Warfarin Sodium 5 MG Oral Tablet 10/08/2020 12:00:00 AM EST eCW1 ([facility]) Warfarin Sodium 5 MG Oral Tablet 10/08/2020 12:00:00 AM EST eCW1 ([facility]) Warfarin Sodium 5 MG Oral Tablet 10/08/2020 12:00:00 AM EST eCW1 ([facility]) Warfarin Sodium 5 MG Oral Tablet 10/08/2020 12:00:00 AM EST eCW1 ([facility]) Warfarin Sodium 5 MG Oral Tablet 10/08/2020 12:00:00 AM EST eCW1 ([facility]) Warfarin Sodium 5 MG Oral Tablet 10/05/2020 12:00:00 AM EST eCW1 ([facility]) Warfarin Sodium 5 MG Oral Tablet 10/05/2020 12:00:00 AM EST eCW1 ([facility]) Tylenol Extra Strength 500 MG 09/19/2020 12:00:00 AM EST eCW1 ([facility]) Tylenol Extra Strength 500 MG 09/19/2020 12:00:00 AM EST eCW1 ([facility]) Tylenol Extra Strength 500 MG 09/19/2020 12:00:00 AM EST eCW1 ([facility]) Tylenol Extra Strength 500 MG 09/19/2020 12:00:00 AM EST eCW1 ([facility]) Menthol 100 MG/ML / methyl salicylate 150 MG/ML Topica l Cream 09/17/2020 12:00:00 AM EST eCW1 ([facility]) Menthol 100 MG/ML / methyl salicylate 150 MG/ML Topica l Cream 09/17/2020 12:00:00 AM EST eCW1 ([facility]) Menthol 100 MG/ML / methyl salicylate 150 MG/ML Topica l Cream 09/17/2020 12:00:00 AM EST eCW1 ([facility]) Menthol 100 MG/ML / methyl salicylate 150 MG/ML Topica l Cream 09/17/2020 12:00:00 AM EST eCW1 ([facility]) Warfarin Sodium 7.5 MG Oral Tablet 09/11/2020 12:00:00 AM EST eCW1 ([facility]) Warfarin Sodium 7.5 MG Oral Tablet 09/11/2020 12:00:00 AM EST eCW1 ([facility]) Warfarin Sodium 7.5 MG Oral Tablet 09/11/2020 12:00:00 AM EST eCW1 ([facility]) Warfarin Sodium 7.5 MG Oral Tablet 09/11/2020 12:00:00 AM EST eCW1 ([facility]) Warfarin Sodium 7.5 MG Oral Tablet 09/11/2020 12:00:00 AM EST eCW1 ([facility]) Warfarin Sodium 7.5 MG Oral Tablet 09/11/2020 12:00:00 AM EST eCW1 ([facility]) Warfarin Sodium 7.5 MG Oral Tablet 09/11/2020 12:00:00 AM EST eCW1 ([facility]) Warfarin Sodium 7.5 MG Oral Tablet 09/11/2020 12:00:00 AM EST eCW1 ([facility]) Warfarin Sodium 7.5 MG Oral Tablet 09/11/2020 12:00:00 AM EST eCW1 ([facility]) 3 ML Insulin Glargine 100 UNT/ML Pen Injector [Lantus] 08/21/2020 12:00:00 AM EDT eCW1 ([facility]) 3 ML Insulin Glargine 100 UNT/ML Pen Injector [Lantus] 08/21/2020 12:00:00 AM EDT eCW1 ([facility]) 3 ML Insulin Glargine 100 UNT/ML Pen Injector [Lantus] 08/21/2020 12:00:00 AM EDT eCW1 ([facility]) 3 ML Insulin Glargine 100 UNT/ML Pen Injector [Lantus] 08/21/2020 12:00:00 AM EDT eCW1 ([facility]) 3 ML Insulin Glargine 100 UNT/ML Pen Injector [Lantus] 08/21/2020 12:00:00 AM EDT eCW1 ([facility]) 3 ML Insulin Glargine 100 UNT/ML Pen Injector [Lantus] 08/21/2020 12:00:00 AM EDT eCW1 ([facility]) 3 ML Insulin Glargine 100 UNT/ML Pen Injector [Lantus] 08/21/2020 12:00:00 AM EDT eCW1 ([facility]) 3 ML Insulin Glargine 100 UNT/ML Pen Injector [Lantus] 08/21/2020 12:00:00 AM EDT eCW1 ([facility]) 3 ML Insulin Glargine 100 UNT/ML Pen Injector [Lantus] 08/21/2020 12:00:00 AM EDT eCW1 ([facility]) 3 ML Insulin Glargine 100 UNT/ML Pen Injector [Lantus] 08/21/2020 12:00:00 AM EDT eCW1 ([facility]) 3 ML Insulin Glargine 100 UNT/ML Pen Injector [Lantus] 08/21/2020 12:00:00 AM EDT eCW1 ([facility]) sitagliptin 50 MG Oral Tablet [Januvia] 08/20/2020 12:00:00 AM EDT eCW1 ([facility]) BD Ultra-fine Pen Stout 32G 4mm 08/20/2020 12:00:00 AM EDT eCW1 ([facility]) BD Ultra-fine Pen Stout 32G 4mm 08/20/2020 12:00:00 AM EDT eCW1 ([facility]) sitagliptin 50 MG Oral Tablet [Januvia] 08/20/2020 12:00:00 AM EDT eCW1 ([facility]) BD Ultra-fine Pen Stout 32G 4mm 08/20/2020 12:00:00 AM EDT eCW1 ([facility]) sitagliptin 50 MG Oral Tablet [Januvia] 08/20/2020 12:00:00 AM EDT eCW1 ([facility]) BD Ultra-fine Pen Stout 32G 4mm 08/20/2020 12:00:00 AM EDT eCW1 ([facility]) sitagliptin 50 MG Oral Tablet [Januvia] 08/20/2020 12:00:00 AM EDT eCW1 ([facility]) BD Ultra-fine Pen Stout 32G 4mm 08/20/2020 12:00:00 AM EDT eCW1 ([facility]) sitagliptin 50 MG Oral Tablet [Januvia] 08/20/2020 12:00:00 AM EDT eCW1 ([facility]) Acetaminophen 500 MG / Diphenhydramine H ydrochloride 25 MG Oral Tablet [Tylenol PM] 05/02/2020 12:00:00 AM EDT eCW1 ([facility]) Acetaminophen 500 MG / Diphenhydramine H ydrochloride 25 MG Oral Tablet [Tylenol PM] 05/02/2020 12:00:00 AM EDT eCW1 ([facility]) Acetaminophen 500 MG / Diphenhydramine H ydrochloride 25 MG Oral Tablet [Tylenol PM] 05/02/2020 12:00:00 AM EDT eCW1 ([facility]) Acetaminophen 500 MG / Diphenhydramine H ydrochloride 25 MG Oral Tablet [Tylenol PM] 05/02/2020 12:00:00 AM EDT eCW1 ([facility]) Acetaminophen 500 MG / Diphenhydramine H ydrochloride 25 MG Oral Tablet [Tylenol PM] 05/02/2020 12:00:00 AM EDT eCW1 ([facility]) Acetaminophen 500 MG / Diphenhydramine H ydrochloride 25 MG Oral Tablet [Tylenol PM] 05/02/2020 12:00:00 AM EDT eCW1 ([facility]) Acetaminophen 500 MG / Diphenhydramine H ydrochloride 25 MG Oral Tablet [Tylenol PM] 05/02/2020 12:00:00 AM EDT eCW1 ([facility]) Acetaminophen 500 MG / Diphenhydramine H ydrochloride 25 MG Oral Tablet [Tylenol PM] 05/02/2020 12:00:00 AM EDT eCW1 ([facility]) May Have - 03/20/2020 12:00:00 AM EDT e CW1 ([facility]) telmisartan 20 MG Oral Tablet 03/14/2020 12:00:00 AM EDT eCW1 ([facility]) telmisartan 20 MG Oral Tablet 03/14/2020 12:00:00 AM EDT eCW1 ([facility]) telmisartan 20 MG Oral Tablet 03/14/2020 12:00:00 AM EDT eCW1 ([facility]) telmisartan 20 MG Oral Tablet 03/14/2020 12:00:00 AM EDT eCW1 ([facility]) telmisartan 20 MG Oral Tablet 03/14/2020 12:00:00 AM EDT eCW1 ([facility]) telmisartan 20 MG Oral Tablet 03/14/2020 12:00:00 AM EDT eCW1 ([facility]) telmisartan 20 MG Oral Tablet 03/14/2020 12:00:00 AM EDT eCW1 ([facility]) telmisartan 20 MG Oral Tablet 03/14/2020 12:00:00 AM EDT eCW1 ([facility]) telmisartan 20 MG Oral Tablet 03/14/2020 12:00:00 AM EDT eCW1 ([facility]) telmisartan 20 MG Oral Tablet 03/14/2020 12:00:00 AM EDT eCW1 ([facility]) telmisartan 20 MG Oral Tablet 03/14/2020 12:00:00 AM EDT eCW1 ([facility]) telmisartan 20 MG Oral Tablet 03/14/2020 12:00:00 AM EDT eCW1 ([facility]) telmisartan 20 MG Oral Tablet 03/14/2020 12:00:00 AM EDT eCW1 ([facility]) telmisartan 20 MG Oral Tablet 03/14/2020 12:00:00 AM EDT eCW1 ([facility]) Hydroxychloroquine Sulfate 200 MG Oral Tablet 02/28/2020 12:00:00 A M EDT eCW1 ([facility]) Hydroxychloroquine Sulfate 200 MG Oral Tablet 02/28/2020 12:00:00 A M EDT eCW1 ([facility]) Hydroxychloroquine Sulfate 200 MG Oral Tablet 02/28/2020 12:00:00 A M EDT eCW1 ([facility]) Hydroxychloroquine Sulfate 200 MG Oral Tablet 02/28/2020 12:00:00 A M EDT eCW1 ([facility]) Hydroxychloroquine Sulfate 200 MG Oral Tablet 02/28/2020 12:00:00 A M EDT eCW1 ([facility]) Hydroxychloroquine Sulfate 200 MG Oral Tablet 02/28/2020 12:00:00 A M EDT eCW1 ([facility]) Hydroxychloroquine Sulfate 200 MG Oral Tablet 02/28/2020 12:00:00 A M EDT eCW1 ([facility]) Hydroxychloroquine Sulfate 200 MG Oral Tablet 02/28/2020 12:00:00 A M EDT eCW1 ([facility]) Hydroxychloroquine Sulfate 200 MG Oral Tablet 02/28/2020 12:00:00 A M EDT eCW1 ([facility]) Hydroxychloroquine Sulfate 200 MG Oral Tablet 02/28/2020 12:00:00 A M EDT eCW1 ([facility]) Hydroxychloroquine Sulfate 200 MG Oral Tablet 02/28/2020 12:00:00 A M EDT eCW1 ([facility]) Hydroxychloroquine Sulfate 200 MG Oral Tablet 02/28/2020 12:00:00 A M EDT eCW1 ([facility]) Hydroxychloroquine Sulfate 200 MG Oral Tablet 02/28/2020 12:00:00 A M EDT eCW1 ([facility]) Hydroxychloroquine Sulfate 200 MG Oral Tablet 02/28/2020 12:00:00 A M EDT eCW1 ([facility]) Hydroxychloroquine Sulfate 200 MG Oral Tablet 02/28/2020 12:00:00 A M EDT eCW1 ([facility]) Hydroxychloroquine Sulfate 200 MG Oral Tablet 02/28/2020 12:00:00 A M EDT eCW1 ([facility]) Hydroxychloroquine Sulfate 200 MG Oral Tablet 02/28/2020 12:00:00 A M EDT eCW1 ([facility]) Omeprazole 40 MG Delayed Release Oral Capsule 02/24/2020 12:00:00 A M EDT eCW1 ([facility]) Melatonin 5 MG 02/21/2020 12:00:00 AM EDT eCW1 ([facility]) Melatonin 5 MG 02/21/2020 12:00:00 AM EDT eCW1 ([facility]) Famotidine 20 MG Oral Tablet 11/14/2019 12:00:00 AM EST eCW1 ([facility]) Famotidine 20 MG Oral Tablet 11/14/2019 12:00:00 AM EST eCW1 ([facility])
[2020-11-21] MEDS ORDERED: propofoL 200 MG/20 ML VIAL As Ordered ONE (07:15)
[2020-11-21] MEDS ORDERED: LIDOCAINE 2% 100MG/5ML SDV (FOR ANES.) As Ordered ONE ×2 (07:15→07:42)
--- NOTE | 2020-11-21 08:16 | ROOR ---
Patient Name: Meghan Brown Procedure Date: 11/21/2020 7:29 AM Date of : 1955 Age: 65 Room: [facility] Gender: Female Note Status: Finalized Procedure: Total Colonoscopy to Cecum + Cold Snare Polypectomy + APC Indications: High risk colon cancer surveillance: Personal history of colonic polyps, High risk colon cancer surveillance: Personal history of adenoma with villous component Providers: Noé Sellers MD Referring MD: Rebecca Agrawal Requesting Provider: Medicines: Monitored Anesthesia Care Complications: No immediate complications. Procedure: Pre-Anesthesia Assessment: - The heart rate, respiratory rate, oxygen saturations, blood pressure, adequacy of pulmonary ventilation, and response to care were monitored throughout the procedure. The Colonoscope was introduced through the anus and advanced to the cecum, identified by appendiceal orifice and ileocecal valve. The colonoscopy was performed without difficulty. The patient tolerated the procedure well. The quality of the bowel preparation was excellent. Findings: The perianal and digital rectal examinations were normal. Multiple small and large-mouthed diverticula were found in the recto-sigmoid colon, sigmoid colon and descending colon. A large polyp was found in the hepatic flexure. The polyp was carpet-like. The polyp was removed with a cold snare. Resection and retrieval were complete. Coagulation for tissue destruction using argon plasma at 0.8 liters/minute and 20 nix was successful. The exam was otherwise without abnormality on direct and retroflexion views. Impression: - Diverticulosis in the recto-sigmoid colon, in the sigmoid colon and in the descending colon. - One large polyp at the hepatic flexure, removed with a cold snare. Resected and retrieved. Treated with argon plasma coagulation (APC). - The examination was otherwise normal on direct and retroflexion views. - The exam was otherwise normal to the cecum. Recommendation: - Patient has a contact number available for emergencies. The signs and symptoms of potential delayed complications were discussed with the patient. Return to normal activities tomorrow. Written discharge instructions were provided to the patient. - High fiber diet. - Discharge patient to home. - Resume Coumadin (warfarin) at prior dose today. - Await pathology results. - Telephone GI clinic for pathology results in 1 week. - Return to my office in 3 months. - Repeat colonoscopy for surveillance based on pathology results. - The findings and recommendations were discussed with the patient. Procedure Code(s): --- Professional --- 22611, Colonoscopy, flexible; with ablation of tumor(s), polyp(s), or other lesion(s) (includes pre- and post-dilation and guide wire passage, when performed) Diagnosis Code(s): --- Professional --- K63.5, Polyp of colon Z86.010, Personal history of colonic polyps K57.30, Diverticulosis of large intestine without perforation or abscess without bleeding CPT copyright 2019 [employer]. All rights reserved. The codes documented in this report are preliminary and upon corporate scheduler review may be revised to meet current compliance requirements. Noé Sellers MD Noé Sellers MD 11/21/2020 8:15:36 AM Electronically signed by Noé Sellers MD Number of Addenda: 0 Note Initiated On: 11/21/2020 7:29 AM Estimated Blood Loss: Estimated blood loss: none.
[2020-11-21 09:45] VITALS: BP 132/86
== END 2020-11-21 11:30 | disposition home or self-care (01) ==
LOC: M OPP 06:35
PROVIDERS: ATTEND Internal Medicine Gastroenterology
DX: Z12.11 Encounter for screening for malignant neoplasm of colon (principal); Z86.010 Personal history of colon polyps; D12.3 Benign neoplasm of transverse colon; K57.30 Diverticulosis of large intestine without perforation or abscess without bleeding; I48.91 Unspecified atrial fibrillation; I10 Essential (primary) hypertension; E78.5 Hyperlipidemia, unspecified; E11.9 Type 2 diabetes mellitus without complications; R12 Heartburn; D50.9 Iron deficiency anemia, unspecified; M19.90 Unspecified osteoarthritis, unspecified site; M32.9 Systemic lupus erythematosus, unspecified; F41.9 Anxiety disorder, unspecified; F32.9 Major depressive disorder, single episode, unspecified; G47.00 Insomnia, unspecified; Z86.73 Personal history of transient ischemic attack (TIA), and cerebral infarction without residual deficits; Z79.01 Long term (current) use of anticoagulants; Z79.84 Long term (current) use of oral hypoglycemic drugs; Z79.899 Other long term (current) drug therapy; Z88.8 Allergy status to other drugs, medicaments and biological substances; Z91.040 Latex allergy status

== ENCOUNTER → 2020-11-23 | Outpatient (REF) | payer MEDICARE, MEDICAID ==
[~2020-11-23] MED LIST changes: -HYDR-3490 PO; +HYDR25TAB PO; -LISI10TA22 PO; +LISI10TA4 PO; -NS 1,000 ML IV ONE
[2020-11-23 10:38] LABS: INR 1.65; PROTHROMBIN TIME 19.9 SECONDS (12.5-14.3)
== END ==
PROVIDERS: ATTEND Nurse Practitioner Family
DX: I48.91 Unspecified atrial fibrillation (principal); Z79.899 Other long term (current) drug therapy

== ENCOUNTER → 2020-11-26 | Outpatient (REF) | payer MEDICARE, MEDICAID | PROVIDERS: ATTEND Internal Medicine | DX: Z20.822 Contact with and (suspected) exposure to COVID-19 (principal) ==

== ENCOUNTER → 2020-12-03 | Outpatient (REF) | payer MEDICARE, MEDICAID | PROVIDERS: ATTEND Internal Medicine | DX: Z11.52 Encounter for screening for COVID-19 (principal) ==

== ENCOUNTER → 2020-12-07 | Outpatient (REF) | payer MEDICARE, MEDICAID ==
[~2020-12-07] MED LIST changes: +HYDR-3490 PO; -HYDR25TAB PO; +LISI10TA22 PO; -LISI10TA4 PO
[2020-12-07 10:01] LABS: INR 2.57; PROTHROMBIN TIME 28.2 SECONDS (12.5-14.3)
== END ==
PROVIDERS: ATTEND Nurse Practitioner Family
DX: I69.359 Hemiplegia and hemiparesis following cerebral infarction affecting unspecified side (principal)

== ENCOUNTER → 2020-12-10 | Outpatient (REF) | payer MEDICARE, MEDICAID | PROVIDERS: ATTEND Internal Medicine | DX: Z20.822 Contact with and (suspected) exposure to COVID-19 (principal) ==

== ENCOUNTER → 2020-12-17 | Outpatient (REF) | payer MEDICARE, MEDICAID | PROVIDERS: ATTEND Internal Medicine | DX: Z20.822 Contact with and (suspected) exposure to COVID-19 (principal) ==

== ENCOUNTER → 2021-01-04 | Outpatient (REF) | payer MEDICARE, MEDICAID ==
[~2021-01-04] MED LIST changes: -PEG1POW PO; +POLY17PO18 PO
[2021-01-04 11:42] LABS: INR 2.51; PROTHROMBIN TIME 27.7 SECONDS (12.5-14.3)
== END ==
PROVIDERS: ATTEND Nurse Practitioner Family
DX: Z51.81 Encounter for therapeutic drug level monitoring (principal); Z79.01 Long term (current) use of anticoagulants

== ENCOUNTER → 2021-01-15 | Outpatient (REF) | payer MEDICARE, MEDICAID ==
[2021-01-15 11:22] LABS: ALBUMIN 3.3 GM/DL (3.2-5.2); BILIRUBIN,TOTAL 0.2 MG/DL (0.2-1.0); CALCIUM LEVEL 8.9 MG/DL (8.8-10.2); CREATININE FOR GFR 1.19 MG/DL (0.55-1.30); FREE T4 0.67 NG/DL (0.76-1.46); GLOMERULAR FILTRATION RATE 48.6 (>45); MAGNESIUM LEVEL 2.4 MG/DL (1.8-2.4); THYROID STIMULATING HORMONE 1.28 uIU/ML (0.358-3.740); TOTAL PROTEIN 6.3 GM/DL (6.4-8.2)
[2021-01-15 11:59] LABS: HEMOGLOBIN A1c 5.5 %
== END ==
PROVIDERS: ATTEND Nurse Practitioner Family
DX: E11.9 Type 2 diabetes mellitus without complications (principal); I10 Essential (primary) hypertension; E78.5 Hyperlipidemia, unspecified; D50.9 Iron deficiency anemia, unspecified

== ENCOUNTER → 2021-01-25 | Outpatient (CLI) | payer MEDICARE, MEDICAID ==
--- NOTE | 2021-01-25 17:27 | REPPI ---
INDICATION: BACK PAIN. COMPARISON: None. TECHNIQUE: Five views lumbosacral spine. The lateral view is limited as it is somewhat oblique. FINDINGS: There is no evidence of compression fracture or malalignment. There is mild diffuse spurring. There is mild disc space narrowing and subchondral sclerosis at L5-S1. There is sclerosis and spurring at the posterior facet joints at that level as well. The posterior elements appear intact. There are moderate degenerative changes at both hip joints. IMPRESSION: Degenerative changes without evidence of compression fracture or malalignment. <Electronically signed by Larry Walls > 01/25/21 [id number]
== END ==
LOC: M PLAIMG 15:06
PROVIDERS: ATTEND Nurse Practitioner Family
DX: M54.5 Low back pain (principal)

== ENCOUNTER → 2021-02-01 | Outpatient (REF) | payer MEDICARE, MEDICAID ==
[2021-02-01 12:21] LABS: INR 2.17; PROTHROMBIN TIME 24.7 SECONDS (12.5-14.3)
== END ==
PROVIDERS: ATTEND Nurse Practitioner Family
DX: Z79.01 Long term (current) use of anticoagulants (principal)

== ENCOUNTER → 2021-03-05 | Outpatient (REF) | payer MEDICARE, MEDICAID ==
[2021-03-05 10:55] LABS: INR 2.45; PROTHROMBIN TIME 27.2 SECONDS (12.5-14.3)
== END ==
PROVIDERS: ATTEND Nurse Practitioner Family
DX: G81.90 Hemiplegia, unspecified affecting unspecified side (principal); Z79.899 Other long term (current) drug therapy

== ENCOUNTER → 2021-03-08 | Outpatient (REF) | payer MEDICARE, MEDICAID ==
[2021-03-08 11:17] LABS: HEMOGLOBIN A1c 5.4 %
[2021-03-08 11:22] LABS: ALT/SGPT 22 U/L (12-78); BILIRUBIN,TOTAL 0.2 MG/DL (0.2-1.0); BLOOD UREA NITROGEN 11 MG/DL (7-18); CALCIUM LEVEL 8.8 MG/DL (8.8-10.2); CARBON DIOXIDE LEVEL 29 MEQ/L (21-32); CHLORIDE LEVEL 109 MEQ/L (98-107); CREATININE FOR GFR 0.98 MG/DL (0.55-1.30); GLOMERULAR FILTRATION RATE > 60.0 (>45); GLUCOSE, FASTING 136 MG/DL (70-100); SODIUM LEVEL 142 MEQ/L (136-145)
[2021-03-08 11:23] LABS: ALBUMIN 3.2 GM/DL (3.2-5.2); CHOLESTEROL LEVEL 162 MG/DL (<200); CHOLESTEROL RISK RATIO 3.375 (<5); HDL CHOLESTEROL 48 MG/DL (>40); LDL CHOLESTEROL 88 MG/DL (<100); MAGNESIUM LEVEL 2.2 MG/DL (1.8-2.4); NON-HDL-C 114 MG/DL; TOTAL PROTEIN 6.2 GM/DL (6.4-8.2); TRIGLYCERIDES LEVEL 129 MG/DL (<150)
== END ==
PROVIDERS: ATTEND Nurse Practitioner Family
DX: E11.9 Type 2 diabetes mellitus without complications (principal); I10 Essential (primary) hypertension; D50.9 Iron deficiency anemia, unspecified; E78.5 Hyperlipidemia, unspecified

== ENCOUNTER → 2021-03-15 | Outpatient (CLI) | payer MEDICARE, MEDICAID ==
--- NOTE | 2021-03-15 12:59 | REPVR ---
PROCEDURE INFORMATION: Exam: CT Head Without Contrast Exam date and time: 03/15/2021 12:42 PM Age: 65 years old Clinical indication: Other: Headaches TECHNIQUE: Imaging protocol: Computed tomography of the head without contrast. Radiation optimization: All CT scans at this facility use at least one of these dose optimization techniques: automated exposure control; mA and/or kV adjustment per patient size (includes targeted exams where dose is matched to clinical indication); or iterative reconstruction. COMPARISON: CT Head without contrast 07/22/2019 2:11 PM FINDINGS: Brain: Stable chronic hypodense infarction in the left deep frontal white matter extending into the basal ganglia with adjacent volume loss changes. There is mild ill-defined patchy hypodensity within the bilateral cerebral periventricular white matter, consistent with chronic microvascular ischemic changes. There is mild diffuse cerebral atrophy present, consistent with this patient's age. Cerebral ventricles: The ventricular system demonstrates mild diffuse compensatory enlargement. Bones/joints: Unremarkable. No acute fracture. Paranasal sinuses: Visualized sinuses are unremarkable. No fluid levels. Mastoid air cells: Visualized mastoid air cells are well aerated. Soft tissues: Unremarkable. IMPRESSION: 1. No acute infarction, masses or hemorrhage is seen. No acute intracranial abnormality is identified. 2. Diffuse age-related cerebral atrophy and mild chronic microvascular white matter ischemic changes. 3. There has been no adverse interval change since the previous study. 4. Stable chronic hypodense infarction in the left deep frontal white matter extending into the basal ganglia with adjacent volume loss changes. Electronically signed by: Krishna Phillip On 03/15/2021 12:59:35 PM
== END ==
LOC: M RAD 12:31
PROVIDERS: ATTEND Nurse Practitioner Family
DX: R51.9 Headache, unspecified (principal)

== ENCOUNTER → 2021-04-05 | Outpatient (REF) | payer MEDICARE, MEDICAID ==
[~2021-04-05] MED LIST changes: +AMBI5TAB PO; +ATOR80TA59 PO; +ECOT81TA5 PO; +EUCECRE8 TP; +GABA-1171 PO; +LANTINJ4 SC; +MUSCCRE9 EX; +OMEP40CA4 PO; -OMEP40CA97 PO; +QC A650T3 PO; +TELM1TAB35 PO; +TRAZ-186 PO; +TRAZ-252 PO
[2021-04-05 10:15] LABS: INR 2.4; PROTHROMBIN TIME 26.7 SECONDS (12.5-14.3)
== END ==
PROVIDERS: ATTEND Nurse Practitioner Family
DX: Z51.81 Encounter for therapeutic drug level monitoring (principal); Z79.899 Other long term (current) drug therapy

== ENCOUNTER 2021-04-07 13:27 | Emergency (ER) | payer MEDICARE, MEDICAID ==
[~2021-04-07] VITALS: Ht 167.6 cm; Wt 99.5 kg
[~2021-04-07 13:27] MED LIST changes: -AMBI5TAB PO; -ATOR80TA59 PO; -ECOT81TA5 PO; -EUCECRE8 TP; -GABA-1171 PO; -LANTINJ4 SC; -MUSCCRE9 EX; -OMEP40CA4 PO; +OMEP40CA97 PO; -QC A650T3 PO; -TELM1TAB35 PO; -TRAZ-186 PO; -TRAZ-252 PO
[2021-04-07 14:24] LABS: BASO % 0.3 % (0.0-1.0); EOS # 0.3 10^3/uL (0.0-0.5); EOS % 4.3 % (0.0-3.0); HEMOGLOBIN 11.7 g/dl (12.0-15.5); LYMPH # 2.5 10^3/uL (1.5-5.0); LYMPH % 40.8 % (24.0-44.0); MEAN CORPUSCULAR HEMOGLOBIN 25.2 pg (27.0-33.0); MEAN CORPUSCULAR HGB CONC 30.8 g/dl (32.0-36.5); MEAN CORPUSCULAR VOLUME 81.9 fl (80.0-96.0); MONO # 0.6 10^3/uL (0.0-0.8); MONO % 9.7 % (2.0-8.0); NEUTROPHILS # 2.7 10^3/uL (1.5-8.5); NEUTROPHILS % 44.7 % (36.0-66.0); PLATELET COUNT, AUTOMATED 286 10^3/uL (150-450); RED BLOOD COUNT 4.64 10^6/uL (4.00-5.40); WHITE BLOOD COUNT 6.1 10^3/uL (4.0-10.0)
[2021-04-07 15:06] LABS: ALBUMIN 3.6 GM/DL (3.2-5.2); ALT/SGPT 34 U/L (12-78); BILIRUBIN,DIRECT < 0.1 MG/DL (0.0-0.2); BILIRUBIN,TOTAL 0.4 MG/DL (0.2-1.0); BLOOD UREA NITROGEN 14 MG/DL (7-18); CALCIUM LEVEL 8.9 MG/DL (8.8-10.2); CARBON DIOXIDE LEVEL 27 MEQ/L (21-32); CHLORIDE LEVEL 110 MEQ/L (98-107); CREATININE FOR GFR 1.05 MG/DL (0.55-1.30); FREE T4 0.88 NG/DL (0.76-1.46); GLOMERULAR FILTRATION RATE 56.2 (>45); GLUCOSE, FASTING 99 MG/DL (70-100); LIPASE 127 U/L (73-393); POTASSIUM SERUM 4.1 MEQ/L (3.5-5.1); SODIUM LEVEL 143 MEQ/L (136-145); THYROID STIMULATING HORMONE 0.863 uIU/ML (0.358-3.740); TOTAL PROTEIN 6.9 GM/DL (6.4-8.2)
--- NOTE | 2021-04-07 15:10 | REP ---
INDICATION: injury COMPARISON: None. TECHNIQUE: AP and lateral views of the right femur. FINDINGS: Degenerative changes at the hip. Visualized portions of the femur are intact and without acute fracture. IMPRESSION: Limited examination without evidence for acute fracture. <Electronically signed by Bernabe Chery > 04/07/21 2201
--- NOTE | 2021-04-07 15:17 | REP ---
INDICATION: injury COMPARISON: None. TECHNIQUE: AP, lateral, bilateral oblique views of the right knee. FINDINGS: Age-related osteopenia and tricompartmental osteoarthritic degenerative changes. Lateral view demonstrates prepatellar swelling. No effusion. No acute fracture or dislocation. IMPRESSION: Degenerative changes. Soft tissue swelling. No acute fracture or dislocation. <Electronically signed by Bernabe Chery > 04/07/21 [id number]
--- NOTE | 2021-04-07 15:18 | REP ---
INDICATION: injury COMPARISON: None. TECHNIQUE: AP and lateral right tibia/fibula. FINDINGS: Age-related osteopenia and degenerative changes at the knee and ankle. No obvious acute fracture or dislocation. No subcutaneous emphysema or foreign body. IMPRESSION: . No obvious acute fracture or dislocation. <Electronically signed by Bernabe Chery > 04/07/21 4002
--- NOTE | 2021-04-07 15:19 | REP ---
INDICATION: CHEST PAIN COMPARISON: 11/07/2020 TECHNIQUE: Portable AP view of the chest FINDINGS: The mediastinum and cardiac silhouette are stable and within normal limits for portable technique. The lung figueroa are clear without acute consolidation, effusion, or pneumothorax. Skeletal structures are intact. IMPRESSION: No acute cardiopulmonary process appreciated. <Electronically signed by Bernabe Chery > 04/07/21 [id number]
--- NOTE | 2021-04-07 15:21 | REP ---
INDICATION: injury COMPARISON: None. TECHNIQUE: AP, lateral, bilateral oblique views right foot. FINDINGS: Age-related osteopenia and osteoarthritic degenerative changes including hallux valgus deformity. No obvious acute fracture or dislocation. No subcutaneous emphysema or foreign body. IMPRESSION: . No acute fracture or dislocation. <Electronically signed by Bernabe Chery > 04/07/21 [id number]
[2021-04-07 15:29] LABS: INR 2.89; PROTHROMBIN TIME 30.9 SECONDS (12.5-14.3)
[2021-04-07 15:30] LABS: PARTIAL THROMBOPLASTIN TIME 38.8 SECONDS (24.2-38.5)
[2021-04-07] MEDS ORDERED: ZOLO100T PO (18:55)
[2021-04-07] MEDS ORDERED: ECOT81TA5 PO (18:55)
[2021-04-07] MEDS ORDERED: AMBI5TAB PO (18:55)
[2021-04-07] MEDS ORDERED: ATOR80TA59 PO (18:55)
[2021-04-07] MEDS ORDERED: MUSCCRE9 EX (18:55)
[2021-04-07] MEDS ORDERED: TRAZ-252 PO (18:55)
[2021-04-07] MEDS ORDERED: TRAZ-186 PO (18:55)
[2021-04-07] MEDS ORDERED: QC A650T3 PO (18:57)
[2021-04-07] MEDS ORDERED: TELM1TAB35 PO (19:03)
[2021-04-07] MEDS ORDERED: EUCECRE8 TP (19:03)
[2021-04-07] MEDS ORDERED: LANTINJ4 SC (19:03)
[2021-04-07] MEDS ORDERED: SITA50TAB PO (19:03)
[2021-04-07] MEDS ORDERED: GABA-1171 PO (19:03)
--- NOTE | 2021-04-07 19:36 | ECGEPIP ---
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
--- NOTE | 2021-04-07 19:37 | ECGEPIP ---
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
[2021-04-07 21:51] VITALS: BP 166/69
== END 2021-04-07 22:30 | disposition home or self-care (01) ==
LOC: EDBD 13:27 → M ED 13:27
DX: S80.11XA Contusion of right lower leg, initial encounter (principal); V00.838A Other accident with motorized mobility scooter, initial encounter; R07.9 Chest pain, unspecified; M16.11 Unilateral primary osteoarthritis, right hip; M17.11 Unilateral primary osteoarthritis, right knee; E11.9 Type 2 diabetes mellitus without complications; I10 Essential (primary) hypertension; I48.91 Unspecified atrial fibrillation; E78.5 Hyperlipidemia, unspecified; M32.9 Systemic lupus erythematosus, unspecified; Z79.01 Long term (current) use of anticoagulants; Z79.84 Long term (current) use of oral hypoglycemic drugs; Z79.899 Other long term (current) drug therapy; Z91.040 Latex allergy status; Z79.82 Long term (current) use of aspirin

== ENCOUNTER → 2021-05-08 | Outpatient (REF) | payer MEDICARE, MEDICAID ==
[~2021-05-08] MED LIST changes: +AMBI5TAB PO; +ATOR80TA59 PO; +ECOT81TA5 PO; +EUCECRE8 TP; +GABA-1171 PO; +LANTINJ4 SC; +MUSCCRE9 EX; +OMEP40CA4 PO; -OMEP40CA97 PO; +QC A650T3 PO; +TELM1TAB35 PO; +TRAZ-186 PO; +TRAZ-252 PO
[2021-05-08 11:13] LABS: INR 2.97; PROTHROMBIN TIME 31.6 SECONDS (12.5-14.3)
== END ==
PROVIDERS: ATTEND Nurse Practitioner Family
DX: Z51.81 Encounter for therapeutic drug level monitoring (principal); Z79.01 Long term (current) use of anticoagulants

== ENCOUNTER → 2021-06-05 | Outpatient (REF) | payer MEDICARE, MEDICAID ==
[2021-06-05 11:01] LABS: INR 3.2
== END ==
PROVIDERS: ATTEND Nurse Practitioner Family
DX: Z51.81 Encounter for therapeutic drug level monitoring (principal); Z79.899 Other long term (current) drug therapy

== ENCOUNTER → 2021-07-03 | Outpatient (REF) | payer MEDICARE, MEDICAID ==
[~2021-07-03] MED LIST changes: +BISA10SU PR; +HYDR-643 PO; +SENN-52 PO; +SUCR1ORA PO
[2021-07-03 11:18] LABS: INR 3.25; PROTHROMBIN TIME 33.5 SECONDS (12.7-14.5)
== END ==
PROVIDERS: ATTEND Nurse Practitioner Family
DX: Z79.01 Long term (current) use of anticoagulants (principal)

== ENCOUNTER → 2021-07-24 | Outpatient (CLI) | payer MEDICARE, MEDICAID ==
[~2021-07-24] MED LIST changes: -BISA10SU PR; -SENN-52 PO; -SUCR1ORA PO
== END ==
LOC: M LABSMTC 09:19
PROVIDERS: ATTEND Anesthesiology
DX: Z01.812 Encounter for preprocedural laboratory examination (principal); Z20.822 Contact with and (suspected) exposure to COVID-19

== ENCOUNTER 2021-07-29 08:01 | Day surgery (SDC) | payer MEDICARE, MEDICAID ==
[~2021-07-29] VITALS: Ht 167.6 cm; Wt 99.3 kg
[~2021-07-29 08:01] MED LIST changes: +NS 1,000 ML IV ONE
[2021-07-29] MEDS ORDERED: propofoL 200 MG/20 ML VIAL As Ordered ONE ×2 (09:33→09:37)
[2021-07-29] MEDS ORDERED: LIDOCAINE 2% 100MG/5ML SDV (FOR ANES.) As Ordered ONE (09:33)
--- NOTE | 2021-07-29 09:43 | ROOR ---
Patient Name: Meghan Brown Procedure Date: 07/29/2021 9:19 AM Date of : 1955 Age: 66 Room: [facility] Gender: Female Note Status: Finalized Procedure: Total Colonoscopy to Cecum + Biopsy Polypectomy Indications: High risk colon cancer surveillance: Personal history of adenoma with villous component Providers: Noé Sellers MD Referring MD: Rebecca Agrawal Requesting Provider: Medicines: Monitored Anesthesia Care Complications: No immediate complications. Procedure: Pre-Anesthesia Assessment: - The heart rate, respiratory rate, oxygen saturations, blood pressure, adequacy of pulmonary ventilation, and response to care were monitored throughout the procedure. The Colonoscope was introduced through the anus and advanced to the cecum, identified by appendiceal orifice and ileocecal valve. The colonoscopy was performed without difficulty. The patient tolerated the procedure well. The quality of the bowel preparation was excellent. Findings: The perianal and digital rectal examinations were normal. Non-bleeding internal hemorrhoids were found during retroflexion. The hemorrhoids were small and Grade I (internal hemorrhoids that do not prolapse). Multiple small and large-mouthed diverticula were found in the recto-sigmoid colon, sigmoid colon and descending colon. A medium polyp was found in the proximal ascending colon. The polyp was carpet-like. Biopsies were taken with a cold forceps for histology. The exam was otherwise without abnormality on direct and retroflexion views. Impression: - Non-bleeding internal hemorrhoids. - Diverticulosis in the recto-sigmoid colon, in the sigmoid colon and in the descending colon. - One medium polyp in the proximal ascending colon. Biopsied. - The examination was otherwise normal on direct and retroflexion views. - The exam was otherwise normal to the cecum. Recommendation: - Patient has a contact number available for emergencies. The signs and symptoms of potential delayed complications were discussed with the patient. Return to normal activities tomorrow. Written discharge instructions were provided to the patient. - High fiber diet. - Discharge patient to home. - Continue present medications. - Await pathology results. - Telephone GI clinic for pathology results in 1 week. - Repeat colonoscopy for surveillance based on pathology results. - Return to referring physician. - Resume Coumadin (warfarin) at prior dose today. - The findings and recommendations were discussed with the patient. Procedure Code(s): --- Professional --- 26958, Colonoscopy, flexible; with biopsy, single or multiple Diagnosis Code(s): --- Professional --- Z86.010, Personal history of colonic polyps K64.0, First degree hemorrhoids K63.5, Polyp of colon K57.30, Diverticulosis of large intestine without perforation or abscess without bleeding CPT copyright 2019 [employer]. All rights reserved. The codes documented in this report are preliminary and upon net manager review may be revised to meet current compliance requirements. Noé Sellers MD Noé Sellers MD 07/29/2021 9:43:21 AM Electronically signed by Noé Sellers MD Number of Addenda: 0 Note Initiated On: 07/29/2021 9:19 AM Estimated Blood Loss: Estimated blood loss: none.
[2021-07-29 09:45] VITALS: BP 123/58
== END 2021-07-29 09:57 | disposition home or self-care (01) ==
LOC: M OPP 08:01
PROVIDERS: ATTEND Internal Medicine Gastroenterology
DX: Z86.010 Personal history of colon polyps (principal); D12.2 Benign neoplasm of ascending colon; K64.0 First degree hemorrhoids; K57.30 Diverticulosis of large intestine without perforation or abscess without bleeding; I10 Essential (primary) hypertension; E78.5 Hyperlipidemia, unspecified; E11.9 Type 2 diabetes mellitus without complications; K21.9 Gastro-esophageal reflux disease without esophagitis; M19.90 Unspecified osteoarthritis, unspecified site; F41.9 Anxiety disorder, unspecified; J44.9 Chronic obstructive pulmonary disease, unspecified; Z88.8 Allergy status to other drugs, medicaments and biological substances; Z91.040 Latex allergy status; Z79.01 Long term (current) use of anticoagulants; Z79.4 Long term (current) use of insulin; Z79.82 Long term (current) use of aspirin; Z79.899 Other long term (current) drug therapy

== ENCOUNTER → 2021-08-05 | Outpatient (REF) | payer MEDICARE, MEDICAID ==
[~2021-08-05] MED LIST changes: -NS 1,000 ML IV ONE
[2021-08-05 10:53] LABS: INR 2.3; PROTHROMBIN TIME 25.7 SECONDS (12.7-14.5)
== END ==
PROVIDERS: ATTEND Nurse Practitioner Family
DX: I48.91 Unspecified atrial fibrillation (principal)

== ENCOUNTER → 2021-09-04 | Outpatient (REF) | payer MEDICARE, MEDICAID ==
[2021-09-04 12:52] LABS: INR 2.98; PROTHROMBIN TIME 31.3 SECONDS (12.7-14.5)
== END ==
PROVIDERS: ATTEND Nurse Practitioner Family
DX: I48.91 Unspecified atrial fibrillation (principal)

== ENCOUNTER 2021-09-16 17:36 | Inpatient (IN) | payer MEDICARE, MEDICAID ==
[~2021-09-16] VITALS: Ht 167.6 cm; Wt 97.2 kg
[2021-09-16] VITALS (7 sets, daily range): BP systolic 141–175; BP diastolic 76–88
[~2021-09-16 17:36] MED LIST changes: -BISA10SU PR; -SENN-52 PO; -SUCR1ORA PO
[2021-09-16] MEDS ORDERED: PANTOPRAZOLE 40MG VIAL (C9113 PER 1) IV ONE (17:50)
[2021-09-16 18:18] LABS: HEMATOCRIT 24.1 % (36.0-47.0); MEAN CORPUSCULAR HEMOGLOBIN 17.6 pg (27.0-33.0); MEAN CORPUSCULAR VOLUME 65.3 fl (80.0-96.0); PLATELET COUNT, AUTOMATED 347 10^3/uL (150-450); RED BLOOD COUNT 3.69 10^6/uL (4.00-5.40); WHITE BLOOD COUNT 7.8 10^3/uL (4.0-10.0)
[2021-09-16 18:19] LABS: HEMOGLOBIN 6.5 g/dl (12.0-15.5)
[2021-09-16 18:34] LABS: INR 2.82
[2021-09-16 18:53] LABS: ALBUMIN 3.5 GM/DL (3.2-5.2); BILIRUBIN,TOTAL 0.2 MG/DL (0.2-1.0); CALCIUM LEVEL 8.7 MG/DL (8.8-10.2); CREATININE FOR GFR 1.24 MG/DL (0.55-1.30); GLOMERULAR FILTRATION RATE 46.2 (>45); POTASSIUM SERUM 4.4 MEQ/L (3.5-5.1); TOTAL PROTEIN 6.8 GM/DL (6.4-8.2)
[2021-09-16] MEDS ORDERED: GLUCOSE 4GM CHEW TABLET PO PRN (19:10)
[2021-09-16] MEDS ORDERED: LR 1,000 ML IV SCH (19:10)
[2021-09-16] MEDS ORDERED: GLUCAGON INJ 1MG VIAL SC PRN (19:10)
[2021-09-16] MEDS ORDERED: DEXTROSE 50% 50 ML SYRINGE IV PRN (19:10)
[2021-09-16] MEDS ORDERED: MAALOX 30 ML SUSP *UDC PO PRN (19:10)
[2021-09-16 19:11] LABS: RSV AMPLIFICATION NEGATIVE (NEGATIVE)
--- NOTE | 2021-09-16 19:17 | HPEPDOC ---
[facility] Medical History & Physical Date of Admission Sep 17, 2021 Date of Service: Sep 17, 2021 Attending Physician: LUIS ALBERTO MAZARIEGOS MD History and Physical CHIEF COMPLAINT: [66 y/o female c/o extreme fatigue x2 days] HISTORY OF PRESENT ILLNESS: [This is a 66 y/o female resident of [facility] with a pmh of cva w residual r side weakness, hld, a-fib on coumadin, htn, copd, gerd, ckd3, dm2, lupus, depression/anxiety who presents to our ED for evaluation of extreme fatigue for the past two days. Patient states that symptoms began suddenly and she simply feels very fatigued and has not had the energy to get out of bed for the past 2-3 days. Patient states that she has been experiencing some mild cold/flu symptoms such as runny nose, dry cough and some mild wheezing that she also feels as though are adding to her fatigue. Patient also admits to some abdominal bloating, dysuria. Patient admits to some recent runny green stools. Patient, at the time of my exam, denies any dizziness, lightheadedness, chest pain, palpitations, chest tightness, abd pain, n/v, constipation, pedal edema, calf pain. Per ED staff report from [facility], patient has been having dark stool for the past two days.] PAST MEDICAL HISTORY: 1. [See HPI PAST SURGICAL HISTORY: 1. [Tubal ligation]. SOCIAL HISTORY: Tobacco use:[Denies] ETOH: [Denies] Illicit drug use: [Denies] FAMILY HISTORY: Reviewed - none pertinent ALLERGIES: Please see below. REVIEW OF SYSTEMS: CONSTITUTIONAL: [See HPI]. HEENT: [See HPI]. CARDIOVASCULAR: [Denies chest pain, palpitations]. RESPIRATORY: [See HPI]. GASTROINTESTINAL: [See HPI]. GENITOURINARY: [Admits to dysuria]. SKIN: [Denies rash]. MUSCULOSKELETAL: [Denies acute joint/back pain]. NEUROLOGICAL: [Denies syncope, paresthesias]. ENDOCRINE: [Hx of DM]. HEMATOLOGIC/LYMPHATIC: [Denies hx of vte]. HOME MEDICATIONS: Please see below. PHYSICAL EXAMINATION: VITAL SIGNS: Please see below. GENERAL APPEARANCE: [This is a pleasant 66 y/o female who is alert and oriented to all questioning. She does not appear to be in any acute distress]. HEENT: [No mass or lesion. EOMI. No scleral icterus. Nares patent. Oral mucosa moist]. CARDIOVASCULAR: [Regular rate, rhythm. No murmurs, rubs, gallops]. LUNGS: [Good air flow b/l. No wheezing, rales, rhonchi]. ABDOMEN: [Soft, nontender]. MUSCULOSKELETAL: [No joint deformity noted]. EXTREMITIES: [Mild edema noted to R leg. Patient tells me this is chronic since her CVA. No overlying skin changes. Pulses intact]. NEUROLOGICAL: [Speech clear. A+Ox3. No focal deficits]. PSYCHIATRIC: [Mood and affect appear appropriate]. LABORATORY DATA: See below. IMAGING: [CT Abd/pelvis: FINDINGS: LUNG BASES: No infiltrate or effusion. - VASCULAR: Visualized cardiac size is at the upper end of normal. Trace pericardial effusion is seen. No abdominoaortic aneurysm, dissection or retroperitoneal hematoma. There is atherosclerosis. - PERITONEAL : No free air or free fluid. - GI: No hiatal hernia. The stomach contains some contrast and gas. The stomach is not sufficiently distended to evaluate wall thickening. The proximal duodenum appears slightly thick-walled. This could be artifactual secondary to insufficient distention. If there are related symptoms, consider dedicated evaluation. - No appearance of a small-bowel obstruction. No focal mesenteric inflammation. No mesenteric lymphadenopathy by size criteria. - Scattered fecal material and gas slightly distending portions of the colon and rectum could be correlated for mild constipation. Perianal inflammation cannot be excluded. There is diverticulosis but no evidence of acute diverticulitis.. The appendix does not appear inflamed. - HEPATOBILIARY, PANCREAS, SPLEEN: Hepatic length is 16 cm. Evaluation of hepatic parenchyma is slightly compromised by beam hardening artifacts. No calcified gallstones or significant biliary dilation. No pancreatic inflammation. Spleen not enlarged. - ADRENALS, KIDNEYS, BLADDER, RETROPERITONEAL: Adrenals within normal limits. No hydronephrosis. Symmetric renal enhancement. Areas of cortical thinning involving the left kidney may be related to scarring or developmental. No perivesical stranding. No bladder wall thickening. - PELVIC: No dominant cystic pelvic mass seen. Gas within the vagina may be iatrogenic. - MUSCULOSKELETAL: Tiny fat containing umbilical hernia. Subcutaneous stranding along the lateral aspects of the lower abdominal body wall bilaterally are of uncertain significance. This could be due to edema, cellulitis or soft tissue contusions. Degenerative changes of the spine are noted. Severe osteoarthritic changes of the hips. No acute fracture or suspicious bone lesion. - IMPRESSION: No free-air, free-fluid or focal mesenteric inflammation. Nonspecific gastrointestinal findings to be correlated clinically are discussed above. - Other incidental findings discussed above.] MICROBIOLOGY: Please see below. ASSESSMENT: [This is a 66 y/o female resident of [facility] with a pmh of cva w residual r side weakness, hld, a-fib on coumadin, htn, copd, gerd, ckd3, dm2, lupus, depression/anxiety who presents to our ED for evaluation of extreme fatigue for the past two days. Per ED staff report from [facility], patient has been having dark stool for the past two days. Patient's hb found to be acutely low at 6.5 in our ED]. . PLAN: 1. [Acute anemia - Unclear etiology at this time. Most likely slow gi bleed as patient is on warfarin. [facility] staff state patient was having dark stools, however patient tells different story. - Patient passed no dark stools or BRBPR in the ED - 2u prbc ordered - Repeat cbc in the am - GI panel, stool occult exams ordered - holding patient's coumadin d/t possible bleeding. Last INR 2.8 - protonix bid, carafate qid - ivf - admit to med surg for w/u and tx 2. Cold/flu sx - no fever/white count/adventitious lung sounds - Respiratory panel negative - supportive care 3. A-fib - pt rate controlled in the ed - holding patients coumadin as stated 4. DM2 - hypoglycemic protocol - sliding scale insulin - continue at home basal insulin - continue gabapentin 5. HLD - continue atorvastatin 6. HTN - continue telmisartan 7. GERD - continue famotidine 8. Lupus - continue plaquenil 9. Hx of cva - continue asa 10. Anxiety/depression - continue atarax, trazodone, zoloft, ambien DVT prophylaxis - mechanical for now]. Vital Signs Vital Signs Date Time Temp Pulse Resp B/P (MAP) Pulse Ox O2 Delivery O2 Flow Rate FiO2 09/16/21 18:36 79 100 09/16/21 18:30 143/76 (98) 09/16/21 17:49 98.0 98 Room Air Laboratory Data Labs 24H Laboratory Tests 2 09/16/21 18:08: Nucleated Red Blood Cells % (auto) 0.6H, Prothrombin Time 30.0H, Prothromb Time International Ratio 2.82, Anion Gap 4L, Glomerular Filtration Rate 46.2, Calcium Level 8.7L, Total Bilirubin 0.2, Aspartate Amino Transf (AST/SGOT) 23, Alanine Aminotransferase (ALT/SGPT) 24, Alkaline Phosphatase 93, Total Protein 6.8, Albumin 3.5, Albumin/Globulin Ratio 1.1L, Coronavirus (COVID-19)(PCR) NEGATIVE, Influenza Type A (RT-PCR) NEGATIVE, Influenza Type B (RT-PCR) NEGATIVE, Respiratory Syncytial Virus (PCR) NEGATIVE CBC/BMP Laboratory Tests 09/16/21 18:08 Home Medications Scheduled Acetaminophen (Acetaminophen 8 Hour) 650 Mg Tablet.er, 650 MG PO TID Aspirin (Ecotrin) 81 Mg Tablet.dr, 81 MG PO DAILY Atorvastatin Calcium (Atorvastatin Calcium) 80 Mg Tablet, 80 MG PO QHS Empagliflozin (Jardiance) 25 Mg Tablet, 25 MG PO DAILY Famotidine (Famotidine) 20 Mg Tablet, 20 MG PO QHS Fluticasone Propionate (Flonase Allergy Relief) 9.9 Ml [place].susp, 1 SPRAY [place]ARES DAILY Gabapentin (Gabapentin) 100 Mg Capsule, 100 MG PO TID Hydroxychloroquine Sulfate (Hydroxychloroquine Sulfate) 200 Mg Tab, 200 MG PO DAILY Insulin Glargine,Hum.rec.anlog (Lantus Solostar) 100 Unit/1 Ml Insuln.pen, 30 SC QHS Omeprazole (Omeprazole) 40 Mg Capsule.dr, 40 MG PO DAILY TAKES 30 MINUTES PRIOR TO LUNCH Sertraline Hcl (Zoloft) 100 Mg Tablet, 100 MG PO QHS Sitagliptin (Januvia) 50 Mg Tablet, 50 MG PO QHS Telmisartan (Telmisartan) 40 Mg Tablet, 40 MG PO DAILY Trazodone HCl (Trazodone HCl) 50 Mg Tablet, 50 MG PO QHS Triamcinolone Acet (Triamcinolone Acetonide 0.1% Crm) 80 Gm Cream..g., 1 DOSE TOP BID APPLY TO BACK Warfarin Sodium (Warfarin Sodium) 5 Mg Tablet, 5 MG PO QPM Zolpidem Tartrate (Ambien) 5 Mg Tablet, 5 MG PO QHS Scheduled PRN Hydroxyzine HCl (Hydroxyzine HCl) 10 Mg Tablet, 20 MG PO Q6HP PRN for ITCHING Lanolin Alcohol/Mo/W.pet/[place] (Eucerin Creme) 454 Gm Cream..g., 1 APPLIC TP BID PRN for ITCHING Magnesium Hydroxide (Milk of Magnesia) 400 Mg/5 Ml Oral.susp, 30 ML PO DAILY PRN for CONSTIPATION Methyl Salicylate/Menthol (Muscle Rub Cream) 85 Gm Cream..g., 1 APPLIC EX ASDI RECTED PRN for PAIN Polyethylene Glycol 3350 (Miralax) 1 Pow Pow, 17 GM PO DAILY PRN for CONSTIPATION Allergies Coded Allergies: lisinopril (Verified Allergy, Unknown, 09/16/21) latex (Verified Adverse Reaction, Unknown, does not like smell, 09/16/21) A-FIB/CHADSVASC A-FIB History Current/History of A-Fib/PAF?: Yes Current PO Anticoag Therapy: No (held for evaluation of bleeding) HIMA CARDOZA Sep 16, 2021 19:17
[2021-09-16] MEDS ORDERED: ISOVUE-370 76% 100ML VIAL As Ordered ONE (19:41)
[2021-09-16] MEDS: GASTROGRAFIN SOLUTION 30ML PO SCH (20:00)
--- OUTSIDE RECORDS SUMMARY | 2021-09-16 20:12 | CCD | Continuity of Care Document ---
Author Author Meghan SELLERS M.D. Organization Unknown Address [address] [place] [id number] Phone [phone] Care Team Providers Care Figure Model Name Role Phone Rebecca AgrawalP AUTM Problems Active Problems Provider Date Screening for malignant neoplasm of colon Noé guy M.D. Onset: 11/23/2018 Social History Type Date Description Comments Sex Unknown ETOH Use Denies alcohol use Tobacco Use Start: Unknown End: Unknown Patient is a former smoker QUIT 2014 Allergies and adverse reactions Active Allergies Criticality Reaction | Severity Comments Date Lisinopril Unable to assess criticality 04/30/2016 Latex Unable to assess criticality 03/27/2020 Medications Active Medications SIG Qnty Indications Ordering Provide r Date Suprep Bowel Prep Kit 17.5-3.13-1.6GM/177ML Solution use as directed 354ml Noé Sellers M.D. 07/24/2021 Jardiance 25mg Tablets Unknown Aspirin Ec Low Dose 81mg Tablets DR Unknown Flonase Allergy Relief 50mcg/Act Suspension Unknown Lantus Solostar 100U nit/ML Solution Pen-Inject Soosairayane,Ashley SR. [employer]BI[employer] MANAGER Warfarin Sodium 5mg Tablets Soosairayane,Rebecca Hyatt SR. [employer]BILE MANAGER Famotidine 20mg Tablets Soosairayane,Rebecca Hyatt [facility] Zolpidem Tartrate 5mg Tablets Soosairayane,Rebecca Hyatt SR. [employer] MOBILE MANAGER Trazodone HCL 50mg Tablets Soosairayane,Rebecca Hyatt [facility] Milk Of Magnesia 400mg/5ML Suspension Unknown Telmisartan 20mg Tablets Unknown Januvia 50mg Tablets Unknown Miralax 3350NF Powder mix one capful (17gm) in 8 ounces of water and drink once daily Unknown Eucerin Intensive Repair Lotion Unknown Gabapentin 300mg Capsules Unknown Omeprazole 20mg Capsules DR Unknown Acetaminophen Extra Strength 500mg/15ML Liquid Unknown Sertraline HCL 100mg Tablets Unknown Atorvastatin Calcium 40mg Tablets Unknown Hydroxychloroquine Sulfate 200mg T ablets Unknown Immunizations Description No Information Available Vital Signs Date Vital Result Comment 06/06/2021 11:54am Height 66 inches 5'6" Weight 217.00 lb Stated BP Systolic 125 mmHg BP Diastolic 76 mmHg Heart Rate 74 /min BMI (Body Mass Index) 35.0 kg/m2 Weight 98.431 kg Body Temperature 98.1 F 2020 11:44am Height 66 inches 5'6" Weight 203.00 lb BP Systolic 140 mmHg BP Diastolic 91 mmHg Heart Rate 80 /min BMI (Body Mass Index) 32.8 kg/m2 Weight 92.081 kg Results Test Acquired Date Facility Test Result H/L Range Note Laboratory test finding 07/29/2021 [facility] [address] [place] [address] Pathology Request For Service (SEE NOTE) 1, 2 1 FINAL DIAGNOSIS Mid ascending colon polyps, polypectomy: Tubular adenoma, fragments. 07/30/2021 - 104 CLINICAL DIAGNOSIS Right sided polyp 07/29/2021 - 1504 GROSS DIAGNOSIS Received in formalin labeled "mid ascending colon polyps" and consists of fragments of tissue 0.3 x 0.2 x 0.1 cm. in aggregate. All in one. -OA 07/29/2021 - 150 Signed OBIE CESPEDES MD 07/30/2021 1045 2 07/30/21 (ThuJul 30) 04:17 PM NOÉ SELLERS Tubular adenoma midascending colon Need to scope in 6 months Procedures Date Code Description Status 07/29/2021 63586 Colonoscopy Flexible W/Biopsy Co mpleted 06/06/2021 55916 Office/Outpatient Established Lo w MDM 20-29 Min Completed Medical Devices Description No Information Available Encounters Type Date Location Provider Dx Diagnosis Office Visit 06/06/2021 11:00a Main Office Noé Sellers M.D. D 37.4 Neoplasm of uncertain behavior of colon Assessments Date Code Description Provider 07/29/2021 Z86.010 Personal history of colonic poly ps Noé Sellers M.D. 07/29/2021 D12.2 Benign neoplasm of ascending col on Noé Sellers M.D. 07/29/2021 K64.0 First degree hemorrhoids Noé Sellers M.D. 07/29/2021 K57.30 Diverticulosis of la rge intestine without perforation or abscess without bleeding Noé Sellers M.D. 06/06/2021 D37.4 Neoplasm of uncertain behavior o f colon Noé Sellers M.D. Plan of Treatment 06/06/2021 - Noé Sellers M.D.* D37.4 Neoplasm of uncertain behavior of colon* Comments:* 66 yo female who presented for a colonoscopy due to a h/o colonic polyps-tubullovillous adenoma-hepatic flexure. Last scope was in 2020. Pt is c/o right sided abdominal pain. No weight loss, change in bowel habits, or rectal bleeding. No family h/o colon cancer. No h/o chest pain, or sob. Pt had a large sessile polyp in the ascending colon. This area of the colon has been worked on for 4 yrs. Path never shows dysplasia, only a tubullovillous adenoma. Pt has had a previous cva, with a dense deficit of her right side. Plan:1. Colonoscopy2. Informed consent given.3. Pt. advised to stop asa, plavix, and anticoagulation at least 3 to 5 days before the procedure. Functional Status Description No Information Available Mental Status Description No Information Available Referrals Description No Information Available
--- OUTSIDE RECORDS SUMMARY | 2021-09-16 20:12 | CCD ---
Author Author [facility] Organization [facility] Address Unknown Phone Unavailable Care Team Providers Care Cardiac Cath Lab Technologist Name Role Phone Gloria Agrawal Unavailable PROBLEMS Type Condition ICD9-CM Code GDV18-TY Code Onset Dates Condition S tatus W/U Status Risk SNOMED Code Notes Problem Diabetes mellitus, type 2 E11.9 Active confirmed 13956845 Problem SLE (systemic lupus erythematosus) M32.9 Activ e confirmed 13298416 Problem Major depressive disorder F32.9 Active confirmed 310201664 Problem Gastroesophageal reflux disease K21.9 Active confi rmed 605652081 Problem Fe deficiency anemia D50.9 Active confirmed 99193577 Problem 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 Active confirmed 355359475 Problem Essential hypertension I10 Active confirmed 62491375 Problem Hyperlipidemia E78.5 Active confirmed 90361 004 Problem snf current use of anticoagulant Z79.01 A ctive confirmed 975022231 Problem Seasonal allergic rhinitis, unspecified trigger J3 0.2 Active confirmed 790994766 Problem Chronic kidney disease, stage 3 N18.3 Active confi rmed 056207442 Problem Encounter for therapeutic drug level monitoring Z5 1.81 Active confirmed 812455175 Problem 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 Active confirmed 869787459 Problem Constipation K59.00 Active confirmed 0058951 8 Problem Insomnia G47.00 Active confirmed 509628618 Problem Paroxysmal atrial fibrillation I48.0 Active confir med 036016694 Problem Iron deficiency anemia, unspecified iron deficiency an emia type D50.9 Active confirmed 32622724 Problem Tubulovillous adenoma of colon D12.6 Active confir med 467505668 Problem Chronic kidney disease (CKD), stage 3 (moderate) N 18.3 Active confirmed 415779289 ALLERGIES Allergen (clinical drug ingredient) Drug/Non Drug Allergy do cumented on EMR Reaction Allergy Type Onset Date Status lisinopril Lisinopril([facility] Code:[address]-59) unknown Drug Allergy Active ENCOUNTERS from 1955 to 2021-07-05 Encounter Location Date Provider Diagnosis [address] [phone] [place] [address] Jul, Gloria Agrawal Insomnia G47.00 IMMUNIZATIONS Vaccine Route Administration Date Status Influenza Pharmacy Given Unknown Aug 17, 2018 Adminis tered Influenza Pharmacy Given Unknown Aug 27, 2017 Adminis tered Influenza Pharmacy Given Unknown Oct 18, 2015 Adminis tered SOCIAL HISTORY Tobacco Use: Social History Observation Description Date Details (start date - stop date) Former Smoker Sex Assigned At : Social History Observation Description Sex Assigned At Unknown Education: Question Answer Notes Level of Education: Not finished High School Language: Question Answer Notes Languages spoken: Uzbek Shinto: Question Answer Notes Shinto No faith beliefs that would impact health care. Sexual [...] Notes Start Da te End Date Status BD Ultra-fine Pen [place] 32G 4mm as directed E11.9 Daily for 30 Days Active Jardiance 25 MG 1 tablet Orally Once a day for 30 day(s) Active MiraLax 17 GM/SCOOP as directed Orally Once a day at HS for 30 D ays Dec, Active Omeprazole 40 MG 1 capsule Orally Once a day 30 minutes before lunch for 30 day(s) Active Atorvastatin Calcium 40 MG 1 tablet Orally Once a day Active Warfarin Sodium 5 MG 1 tablet Orally Once a day for 30 Days Nov, Active Hydroxychloroquine Sulfate 200 MG 1 tablet with food or milk Orally Once a day Active Lantus SoloStar 100 UNIT/ML 30 units Subcutaneous Daily for 30 Days Active Telmisartan 40 MG 1 tab Orally Once a day for 30 day(s) Active traMADol HCl 50 MG 1 tablet as needed Orally Once a day Apr, Active [place] Greaseless 10-15 % apply to affected right shou lder Externally bid for 30 Days Active Famotidine 20 MG 1 tablet Orally Once a day at HS Active Gabapentin 100 MG 1 cap Orally three times daily Active Sertraline HCl 100 MG 1 tablet Orally Once a day for 30 Days Active Tylenol 325 MG 2 tab Orally tid for 30 Days Active Flonase Allergy Relief 50 MCG/ACT 1 spray in each nost ril Nasally Once a day for 30 day(s) Active traZODone HCl 50 MG 1 tablet at bedtime as neede d Orally Once a day for 30 day(s) Active Eucerin - as directed Externally Ac tive Gabapentin 100 MG 1 capsule Orally three times a day for 30 Days Active Ambien 5 MG 1 tablet at bedtime Orally O nce a day as needed for insomnia. MDD=1 for 30 Days Jul, Active traZODone HCl 50 MG 1 tablet at bedtime as neede d Orally Once a day for 30 day(s) Active Milk of Magnesia 400 MG/5ML 5 ml at least 4 hours betw een doses as needed Orally Four times a day Active Hydroxychloroquine Sulfate 200 MG as directed Orally Daily for 3 0 Days Jan, Active Januvia 50 MG as directed Orally Once a day for 30 Days Active Aspirin 81 MG 1 tablet Orally Once a day for 30 day(s) March, Active Januvia 50 MG 1 tablet Orally Once a day for 30 Days Active PROCEDURES No Information RESULTS No Results REASON FOR VISIT refill MEDICAL (GENERAL) HISTORY Type Description Date [...] History Colonoscopy - Dr. Sellers polyps-tubulovillus adenoma- - tubular/tubulovillus adenoma 07/2016/12/2018/11/2020 Surgical History Tubal ligation Hospitalization History stroke 12/04/14 Goals Section No Information Health Concerns No Information MEDICAL EQUIPMENT No Information MENTAL STATUS No Information FUNCTIONAL STATUS No Information ASSESSMENTS Encounter Date Diagnosis Assessment Notes Treatment Notes Treatm ent Clinical Notes Jul, Insomnia (ICD-10 - G47.00) PLAN OF TREATMENT Medication Medication Name Sig Start Date Stop Date Aspirin 81 MG 1 tablet Orally Once a day for 30 day(s) March, Januvia 50 MG 1 tablet Orally Once a day for 30 Days Gabapentin 100 MG 1 capsule Orally three times a day for 30 Days Famotidine 20 MG 1 tablet Orally Once a day at HS BD Ultra-fine Pen [place] 32G 4mm as directed E11.9 Daily for 30 Days Jardiance 25 MG 1 tablet Orally Once a day for 30 day(s) MiraLax 17 GM/SCOOP as directed Orally Once a day at HS for 30 Days Dec, Omeprazole 40 MG 1 capsule Orally Once a day 30 minutes before lunch for 30 day(s) Warfarin Sodium 5 MG 1 tablet Orally Once a day for 30 Days 2020 Lantus SoloStar 100 UNIT/ML 30 units Subcutaneous Daily for 30 D ays Beng[place] Greaseless 10-15 % apply to affected right shou lder Externally bid for 30 Days Tylenol 325 MG 2 tab Orally tid for 30 Days Ambien 5 MG 1 tablet at bedtime Orally O nce a day as needed for insomnia. MDD=1 for 30 Days Jul, traMADol HCl 50 MG 1 tablet as needed Orally Once a day Apr, Hydroxychloroquine Sulfate 200 MG 1 tablet with food or milk Orally Once a day Telmisartan 40 MG 1 tab Orally Once a day for 30 day(s) Atorvastatin Calcium 40 MG 1 tablet Orally Once a day Sertraline HCl 100 MG 1 tablet Orally Once a day for 30 Days traZODone HCl 50 MG 1 tablet at bedtime as neede d Orally Once a day for 30 day(s) Next Appt Details Provider Name:Gloria Agrawal, 2020-11 02:30:00 PM, [address], , [place], [address], Insurance Providers Payer Name Payer Address Payer Phone Insured Name Patient Relati onship to Insured Coverage Start Date Coverage End Date MEDICARE Part A and B [address] [facility] [id number] [place] [employer] [address] [facility] [id number] [place] self
--- OUTSIDE RECORDS SUMMARY | 2021-09-16 20:12 | CCD ---
Author Author [facility] Organization [facility] Address Unknown Phone Unavailable Care Team Providers Care Manager Of Quality Name Role Phone Gloria Agrawal Unavailable PROBLEMS Type Condition ICD9-CM Code [id number] Code Onset Dates Condition S tatus W/U Status Risk SNOMED Code Notes Problem Diabetes mellitus, type 2 E11.9 Active confirmed 42151145 Problem SLE (systemic lupus erythematosus) M32.9 Activ e confirmed 54888057 Problem Major depressive disorder F32.9 Active confirmed 176915002 Problem Gastroesophageal reflux disease K21.9 Active confi rmed 898514870 Problem Fe deficiency anemia D50.9 Active confirmed 92284865 Problem 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 Active confirmed 842276283 Problem Essential hypertension I10 Active confirmed 01195232 Problem Hyperlipidemia E78.5 Active confirmed 35680 004 Problem [facility] current use of anticoagulant Z79.01 A ctive confirmed 091355254 Problem Seasonal allergic rhinitis, unspecified trigger J3 0.2 Active confirmed 571869556 Problem Chronic kidney disease, stage 3 N18.3 Active confi rmed 670481661 Problem Encounter for therapeutic drug level monitoring Z5 1.81 Active confirmed 047351092 Problem 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 Active confirmed 699744694 Problem Constipation K59.00 Active confirmed 6987236 8 Problem Insomnia G47.00 Active confirmed 263254295 Problem Paroxysmal atrial fibrillation I48.0 Active confir med 496085844 Problem Iron deficiency anemia, unspecified iron deficiency an emia type D50.9 Active confirmed 81602730 Problem Tubulovillous adenoma of colon D12.6 Active confir med 763144171 Problem Chronic kidney disease (CKD), stage 3 (moderate) N 18.3 Active confirmed 103430803 ALLERGIES Allergen (clinical drug ingredient) Drug/Non Drug Allergy do cumented on EMR Reaction Allergy Type Onset Date Status lisinopril Lisinopril([facility] Code:[address]-13) unknown Drug Allergy Active ENCOUNTERS from 1955 to 2021-07-02 Encounter Location Date Provider Diagnosis [address] [phone] [place] [address] Jun, Gloria Agrawla Diabetes mellitus, type 2 E1 1.9 IMMUNIZATIONS Vaccine Route Administration Date Status Influenza [...] School Language: Question Answer Notes Languages spoken: Libyan Yazidi: Question Answer Notes Yazidi No restorationist beliefs that would impact health care. Sexual [...] te End Date Status BD Ultra-fine Pen [place] 32G 4mm as directed E11.9 Daily for [...] Once a day for 30 day(s) Active Bengay Greaseless 10-15 % apply to affected right shou lder Externally bid for 30 Days Active traZODone HCl 50 MG 1 tablet at bedtime as neede d Orally Once a day for 30 day(s) Active Milk of Magnesia 400 MG/5ML 5 ml at least 4 hours betw een doses as needed Orally Four times a day Active Flonase Allergy Relief 50 MCG/ACT 1 spray in each nost ril Nasally Once a day for 30 day(s) Active Sertraline HCl 100 MG 1 tablet Orally Once a day for 30 Days Active Gabapentin 100 MG 1 capsule Orally three times a day for 30 Days Active traMADol HCl 50 MG 1 tablet as needed Orally Once a day Apr, Active traZODone HCl 50 MG 1 tablet at bedtime as neede d Orally Once a day for 30 day(s) Active Eucerin - as directed Externally Ac tive Famotidine 20 MG 1 tablet Orally Once a day at HS Active Gabapentin 100 MG 1 cap Orally three times daily Active Tylenol 325 MG 2 tab Orally tid for 30 Days Active Ambien 5 MG 1 tablet at bedtime Orally O nce a day as needed for insomnia. MDD=1 for 30 Days Jun, Active Hydroxychloroquine Sulfate 200 MG as directed [...] Information RESULTS No Results REASON FOR VISIT needles MEDICAL (GENERAL) HISTORY Type Description Date Medical [...] Notes Treatment Notes Treatm ent Clinical Notes Jun, Diabetes mellitus, type 2 (ICD-10 - E11.9) PLAN OF TREATMENT Medication Medication Name Sig Start Date Stop Date Aspirin 81 MG 1 tablet Orally Once a day for 30 day(s) March, Januvia 50 MG 1 tablet Orally Once a day for 30 Days Famotidine 20 MG 1 tablet Orally Once a day at HS Ambien 5 MG 1 tablet at bedtime Orally O nce a day as needed for insomnia. MDD=1 for 30 Days Jun, BD Ultra-fine Pen [place] 32G 4mm as directed E11.9 Daily for [...] units Subcutaneous Daily for 30 D ays Tylenol 325 MG 2 tab Orally tid for 30 Days Gabapentin 100 MG 1 capsule Orally three times a day for 30 Days traMADol HCl 50 MG 1 tablet as needed Orally Once a day Apr, Bengay Greaseless 10-15 % apply to affected right shou lder Externally bid for 30 Days Hydroxychloroquine Sulfate 200 MG 1 tablet with [...] Provider Name:Gloria Agrawal, 2020-11 02:30:00 PM, [address] [facility], , [place], [address], Insurance Providers Payer Name Payer Address Payer Phone Insured Name Patient Relati onship to Insured Coverage Start Date Coverage End Date MEDICARE Part A and B [address] [facility] [phone] [place] MEDICAID [employer] [address] [facility] [id number] [place] self
--- OUTSIDE RECORDS SUMMARY | 2021-09-16 20:12 | CCD ---
Author Author [facility] Organization [facility] Address Unknown Phone Unavailable Care Team Providers Care District Traffic Chief Name Role Phone Gloria Agrawal Unavailable PROBLEMS Type Condition ICD9-CM Code [id number] Code Onset Dates Condition S tatus W/U Status Risk SNOMED Code Notes Problem Diabetes mellitus, type 2 E11.9 Active confirmed 41013665 Problem SLE (systemic lupus erythematosus) M32.9 Activ e confirmed 10461812 Problem Major depressive disorder F32.9 Active confirmed 726155675 Problem Gastroesophageal reflux disease K21.9 Active confi rmed 838303513 Problem Fe deficiency anemia D50.9 Active confirmed 83553573 Problem 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 Active confirmed 575275450 Problem Essential hypertension I10 Active confirmed 90735218 Problem Hyperlipidemia E78.5 Active confirmed 01352 004 Problem [facility]f current use of anticoagulant Z79.01 A ctive confirmed 932013055 Problem Seasonal allergic rhinitis, unspecified trigger J3 0.2 Active confirmed 273277998 Problem Chronic kidney disease, stage 3 N18.3 Active confi rmed 899006458 Problem Encounter for therapeutic drug level monitoring Z5 1.81 Active confirmed 896314065 Problem 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 Active confirmed 242607510 Problem Constipation K59.00 Active confirmed 4111173 8 Problem Insomnia G47.00 Active confirmed 312920328 Problem Paroxysmal atrial fibrillation I48.0 Active confir med 672515443 Problem Iron deficiency anemia, unspecified iron deficiency an emia type D50.9 Active confirmed 77004517 Problem Tubulovillous adenoma of colon D12.6 Active confir med 608190827 Problem Chronic kidney disease (CKD), stage 3 (moderate) N 18.3 Active confirmed 004654854 ALLERGIES Allergen (clinical drug ingredient) Drug/Non Drug Allergy do cumented on EMR Reaction Allergy Type Onset Date Status lisinopril Lisinopril([facility] Code:[address]-66) unknown Drug Allergy Active ENCOUNTERS from 1955 to 2021-07-05 Encounter Location Date Provider Diagnosis [id number] [facility] [phone] [place] [address] Jul, Gloria Agrawal Hemiplegia of dominant side following cerebrovascular accident (CVA) I69.359 and watermelon inspector current use of anticoagulant Z79.01 IMMUNIZATIONS Vaccine [...] School Language: Question Answer Notes Languages spoken: Comoran Yazidism: Question Answer Notes Yazidism No protestant beliefs that would impact health care. Sexual [...] te End Date Status BD Ultra-fine Pen [place] 32G 4mm as directed E11.9 Daily for [...] Treatment Notes Treatm ent Clinical Notes Jul, Hemiplegia of dominant side following cerebrovascular accident (CVA) (ICD-10 - I69.359) Jul, watermelon inspector current use of anticoagulant (ICD-10 - Z79.01) [...] a day at HS BD Ultra-fine Pen [place] 32G 4mm as directed E11.9 Daily for [...] Orally Once a day for 30 day(s) Future Test Test Name Order Date PT-INR [id number] Next Appt Details Provider Name:Gloria Agrawal, 2020-11 02:30:00 PM, [address] [facility], , [place], [address], Insurance Providers Payer Name Payer Address Payer Phone Insured Name Patient Relati onship to Insured Coverage Start Date Coverage End Date MEDICARE Part A and B [address] [facility] [phone] [employer] MEDICAID [facility] [address] [facility] [address] [place] self
--- OUTSIDE RECORDS SUMMARY | 2021-09-16 20:12 | CCD ---
Author Author [facility] Organization [facility] Address Unknown Phone Unavailable Care Team Providers Care Tool Machine Shop Supervisor Name Role Phone Gloria Agrawal Unavailable PROBLEMS Type Condition ICD9-CM Code [id number] Code Onset Dates Condition S tatus W/U Status Risk SNOMED Code Notes Problem Diabetes mellitus, type 2 E11.9 Active confirmed 90446330 Problem SLE (systemic lupus erythematosus) M32.9 Activ e confirmed 72908727 Problem Major depressive disorder F32.9 Active confirmed 368550663 Problem Gastroesophageal reflux disease K21.9 Active confi rmed 670350432 Problem Fe deficiency anemia D50.9 Active confirmed 73306121 Problem 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 Active confirmed 096920571 Problem Essential hypertension I10 Active confirmed 29707299 Problem Hyperlipidemia E78.5 Active confirmed 10780 004 Problem [facility] current use of anticoagulant Z79.01 A ctive confirmed 864835413 Problem Seasonal allergic rhinitis, unspecified trigger J3 0.2 Active confirmed 964880747 Problem Chronic kidney disease, stage 3 N18.3 Active confi rmed 368896369 Problem Encounter for therapeutic drug level monitoring Z5 1.81 Active confirmed 007111190 Problem 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 Active confirmed 341630918 Problem Constipation K59.00 Active confirmed 3334742 8 Problem Insomnia G47.00 Active confirmed 106317804 Problem Paroxysmal atrial fibrillation I48.0 Active confir med 948184094 Problem Iron deficiency anemia, unspecified iron deficiency an emia type D50.9 Active confirmed 33578446 Problem Tubulovillous adenoma of colon D12.6 Active confir med 792786841 Problem Chronic kidney disease (CKD), stage 3 (moderate) N 18.3 Active confirmed 064780047 ALLERGIES Allergen (clinical drug ingredient) Drug/Non Drug Allergy do cumented on EMR Reaction Allergy Type Onset Date Status lisinopril Lisinopril([facility] Code:[address]-61) unknown Drug Allergy Active ENCOUNTERS from 1955 to 2021-06-17 Encounter Location Date Provider Diagnosis [address] [phone] [place] [address] Jun, Gloria Agrawal Essential hypertension I10 ; Insomnia G47.00 ; Major depressive disorder F32.9 ; Gastroesophageal reflux disease K21.9 and Diabetes mellitus, type 2 E11.9 IMMUNIZATIONS Vaccine [...] School Language: Question Answer Notes Languages spoken: Kenyan Hinduism: Question Answer Notes Hinduism No taoism beliefs that would impact health care. Sexual [...] Notes Start Da te End Date Status Hydroxychloroquine Sulfate 200 MG 1 tablet with food or milk Orally Once a day Active Jardiance 25 MG 1 tablet Orally Once a day for 30 day(s) Active MiraLax 17 GM/SCOOP as directed Orally Once a day at HS for 30 D ays Dec, Active Omeprazole 40 MG 1 capsule Orally Once a day 30 minutes before lunch for 30 day(s) Active Telmisartan 40 MG 1 tab Orally Once a day for 30 day(s) Active Warfarin Sodium 5 MG 1 tablet Orally Once a day for 30 Days Nov, Active Atorvastatin Calcium 40 MG 1 tablet Orally Once a day Active Lantus SoloStar 100 UNIT/ML 30 units Subcutaneous Daily for 30 Days Active traZODone HCl 50 [...] needed Orally Once a day Apr, Active BD Ultra-fine Pen [place] 32G 4mm as directed E11.9 Daily for 30 Days Active Eucerin - as directed Externally Ac [...] Treatment Notes Treatm ent Clinical Notes Jun, Essential hypertension (ICD-10 - I10) Jun, Insomnia (ICD-10 - G47.00) Jun, Major depressive disorder (ICD-10 - F32.9) Jun, Gastroesophageal reflux disease (ICD-10 - K21.9) Jun, Diabetes mellitus, type 2 (ICD-10 - [...] for insomnia. MDD=1 for 30 Days Jun, Hydroxychloroquine Sulfate 200 MG 1 tablet with food or milk Orally Once a day Jardiance 25 MG 1 tablet Orally Once [...] shou lder Externally bid for 30 Days Atorvastatin Calcium 40 MG 1 tablet Orally Once a day traZODone HCl 50 MG 1 tablet at bedtime as neede d Orally Once a day for 30 day(s) Telmisartan 40 MG 1 tab Orally Once a day for 30 day(s) Sertraline HCl 100 MG 1 tablet Orally Once a day for 30 Days BD Ultra-fine Pen [place] 32G 4mm as directed E11.9 Daily for 30 Days Next Appt Details Provider Name:Gloria Agrawal, 2020-11 02:30:00 PM, [address] [facility], , [place], [address], Insurance Providers Payer Name Payer Address Payer Phone Insured Name Patient Relati onship to Insured Coverage Start Date Coverage End Date MEDICARE Part A and B [address] [facility] [phone] [employer] MEDICAID [employer] [address] [facility] [address] [place]
--- OUTSIDE RECORDS SUMMARY | 2021-09-16 20:12 | CCD ---
Author Author [facility] Organization [facility] Address Unknown Phone Unavailable Care Team Providers Care Map And Chart Mounter Name Role Phone Gloria Agrawal Unavailable PROBLEMS Type Condition ICD9-CM Code [id number] Code Onset Dates Condition S tatus W/U Status Risk SNOMED Code Notes Problem Diabetes mellitus, type 2 E11.9 Active confirmed 47870350 Problem SLE (systemic lupus erythematosus) M32.9 Activ e confirmed 14829833 Problem Major depressive disorder F32.9 Active confirmed 231221103 Problem Gastroesophageal reflux disease K21.9 Active confi rmed 934856050 Problem Fe deficiency anemia D50.9 Active confirmed 71242563 Problem 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 Active confirmed 212888288 Problem Essential hypertension I10 Active confirmed 30625810 Problem Hyperlipidemia E78.5 Active confirmed 14415 004 Problem shelter current use of anticoagulant Z79.01 A ctive confirmed 940727459 Problem Seasonal allergic rhinitis, unspecified trigger J3 0.2 Active confirmed 913032591 Problem Chronic kidney disease, stage 3 N18.3 Active confi rmed 270198394 Problem Encounter for therapeutic drug level monitoring Z5 1.81 Active confirmed 449689739 Problem 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 Active confirmed 695366324 Problem Constipation K59.00 Active confirmed 2803353 8 Problem Insomnia G47.00 Active confirmed 913771766 Problem Paroxysmal atrial fibrillation I48.0 Active confir med 288413711 Problem Iron deficiency anemia, unspecified iron deficiency an emia type D50.9 Active confirmed 93105097 Problem Tubulovillous adenoma of colon D12.6 Active confir med 719316337 Problem Chronic kidney disease (CKD), stage 3 (moderate) N 18.3 Active confirmed 425942619 ALLERGIES Allergen (clinical drug ingredient) Drug/Non Drug Allergy do cumented on EMR Reaction Allergy Type Onset Date Status lisinopril Lisinopril([facility] Code:[address]-88) unknown Drug Allergy Active ENCOUNTERS from 1955 to 2021-08-26 Encounter Location Date Provider Diagnosis [address] [phone] [place] [address] Aug, Gloria Wilsontacosyane Hyperlipidemia E78.5 ; Diabe wendy mellitus, type 2 E11.9 and SLE (systemic lupus erythematosus) M32.9 IMMUNIZATIONS Vaccine Route Administration Date Status Influenza [...] School Language: Question Answer Notes Languages spoken: Omani Congregation: Question Answer Notes Congregation No evangelical beliefs that would impact health care. Sexual [...] for 30 Days Active BD Ultra-fine Pen [place] 32G 4mm as directed E11.9 Daily for 30 Days Active traZODone HCl 50 MG 1 tablet at bedtime as neede d Orally Once a day for 30 day(s) Active Hydroxychloroquine Sulfate 200 MG 1 tablet with food o r milk Orally Once a day for 30 Days Active Omeprazole 40 MG 1 capsule Orally Once a day 30 minutes before lunch for 30 day(s) Active Atorvastatin Calcium 40 MG 1 tablet Orally Once a day for 30 Days Active Eucerin - as directed Externally Ac tive Gabapentin 100 MG 1 cap Orally three times daily for 30 Days Active Jardiance 25 MG 1 tablet Orally Once a day for 30 day(s) Active traMADol HCl 50 MG 1 tablet as needed Orally Once a day Apr, Active Bengay Greaseless 10-15 % apply to affected right shou lder Externally bid for 30 Days Active Famotidine 20 MG 1 tablet Orally Once a day at HS Active MiraLax 17 GM/SCOOP as directed Orally Once a day at HS for 30 D ays Dec, Active Lantus SoloStar 100 UNIT/ML 30 units Subcutaneous Daily for 30 Days Active Tylenol 325 MG 2 tab Orally tid for 30 Days Active Flonase Allergy Relief 50 MCG/ACT 1 spray in each nost ril Nasally Once a day for 30 day(s) Active Ambien 5 MG 1 tablet at bedtime Orally O nce a day as needed for insomnia. MDD=1 for 30 Days Aug, Active Warfarin Sodium 5 MG 1 tablet Orally Once a day for 30 Days Nov, Active Gabapentin 100 MG 1 capsule Orally three times a day for 30 Days Active Telmisartan 40 MG [...] Information RESULTS No Results REASON FOR VISIT refills MEDICAL (GENERAL) HISTORY Type Description Date [...] Notes Treatment Notes Treatm ent Clinical Notes Aug, Hyperlipidemia (ICD-10 - E78.5) Aug, Diabetes mellitus, type 2 (ICD-10 - E11.9) Aug, SLE (systemic lupus erythematosus) (ICD-10 - M32 .9) PLAN OF TREATMENT Medication Medication Name Sig Start Date Stop Date Aspirin 81 MG 1 tablet Orally Once a day for 30 day(s) March, Januvia 50 MG 1 tablet Orally Once a day for 30 Days Gabapentin 100 MG 1 capsule Orally three times a day for 30 Days Famotidine 20 MG 1 tablet Orally Once a day at HS traZODone HCl 50 MG 1 tablet at bedtime as neede d Orally Once a day for 30 day(s) Hydroxychloroquine Sulfate 200 MG 1 tablet with food o r milk Orally Once a day for 30 Days Telmisartan 40 MG 1 tab Orally Once a day for 30 day(s) Warfarin Sodium 5 MG 1 tablet Orally Once a day for 30 Days 2020 Gabapentin 100 MG 1 cap Orally three times daily for 30 Days BD Ultra-fine Pen [place] 32G 4mm as directed E11.9 Daily for 30 Days Bengay Greaseless 10-15 % apply to affected right shou lder Externally bid for 30 Days Tylenol 325 MG 2 tab Orally tid for 30 Days Atorvastatin Calcium 40 MG 1 tablet Orally Once a day for 30 Day s MiraLax 17 GM/SCOOP as directed Orally Once a day at HS for 30 Days Dec, traMADol HCl 50 MG 1 tablet as needed Orally Once a day Apr, Sertraline HCl 100 MG 1 tablet Orally Once a day for 30 Days Jardiance 25 MG 1 tablet Orally Once a day for 30 day(s) Omeprazole 40 MG 1 capsule Orally Once a day 30 minutes before lunch for 30 day(s) Lantus SoloStar 100 UNIT/ML 30 units Subcutaneous Daily for 30 D ays Ambien 5 MG 1 tablet at bedtime Orally O nce a day as needed for insomnia. MDD=1 for 30 Days Aug, Next Appt Details Provider Name:Gloria Agrawal, 2020-11 02:30:00 PM, [address] [facility], , [place], [address], Insurance Providers Payer Name Payer Address Payer Phone Insured Name Patient Relati onship to Insured Coverage Start Date Coverage End Date MEDICARE Part A and B [address] [facility] [phone] [place] MEDICAID [employer] [address] [facility] [address] [place]
--- OUTSIDE RECORDS SUMMARY | 2021-09-16 20:12 | CCD ---
Continuity of Care Document (CCD) Created on: 07/30/2021 Meghan Brown External Reference #: [id number] : 1955 Sex: Female Author Author Meghan SELLERS M.D. Organization Unknown Address [address] [place] [address] Phone [phone] Care Team Providers Care Examiner Rating Clerk Name Role Phone Rebecca AgrawalP AUTM [phone] Problems Active Problems Provider Date Screening for [...] Lantus Solostar 100U nit/ML Solution Pen-Inject Soosairayane,Ashley [employer] Warfarin Sodium 5mg Tablets Soosairayane,Rebecca Hyatt [employer] Famotidine 20mg Tablets Soosairayane,Rebecca Hyatt [facility] Zolpidem Tartrate 5mg Tablets Soosairayane,Rebecca Hyatt [employer] Trazodone HCL 50mg Tablets Soosairayane,Rebecca Hyatt [facility] Milk Of Magnesia 400mg/5ML Suspension Unknown Telmisartan [...] H/L Range Note Laboratory test finding 07/29/2021 [facility] [address] [place] [address] Pathology Request For Service (SEE NOTE) 1, [...] months Procedures Date Code Description Status 07/29/2021 88541 Colonoscopy Flexible W/Biopsy Co mpleted 06/06/2021 01398 Office/Outpatient Established Lo w MDM 20-29 Min [...]
--- OUTSIDE RECORDS SUMMARY | 2021-09-16 20:12 | CCD ---
Author Author [facility] Organization [facility] Address Unknown Phone Unavailable Care Team Providers Care Financial Accounting Manager Name Role Phone Jovan Nguyen Unavailable PROBLEMS Type Condition ICD9-CM Code QKI82-EL Code Onset Dates Condition S tatus W/U Status Risk SNOMED Code Notes Problem Diabetes mellitus, type 2 E11.9 Active confirmed 72916627 Problem SLE (systemic lupus erythematosus) M32.9 Activ e confirmed 72027804 Problem Major depressive disorder F32.9 Active confirmed 822778759 Problem Gastroesophageal reflux disease K21.9 Active confi rmed 885768288 Problem Fe deficiency anemia D50.9 Active confirmed 65097477 Problem 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 Active confirmed 394688589 Problem Essential hypertension I10 Active confirmed 50887436 Problem Hyperlipidemia E78.5 Active confirmed 09088 004 Problem manager linux current use of anticoagulant Z79.01 A ctive confirmed 108969418 Problem Seasonal allergic rhinitis, unspecified trigger J3 0.2 Active confirmed 818572080 Problem Chronic kidney disease, stage 3 N18.3 Active confi rmed 061697089 Problem Encounter for therapeutic drug level monitoring Z5 1.81 Active confirmed 806464792 Problem 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 Active confirmed 476471564 Problem Constipation K59.00 Active confirmed 4029629 8 Problem Insomnia G47.00 Active confirmed 443728276 Problem Paroxysmal atrial fibrillation I48.0 Active confir med 861876476 Problem Iron deficiency anemia, unspecified iron deficiency an emia type D50.9 Active confirmed 30836568 Problem Tubulovillous adenoma of colon D12.6 Active confir med 471863877 Problem Chronic kidney disease (CKD), stage 3 (moderate) N 18.3 Active confirmed 222319498 ALLERGIES Allergen (clinical drug ingredient) Drug/Non Drug Allergy do cumented on EMR Reaction Allergy Type Onset Date Status lisinopril Lisinopril([facility] Code:[address]-14) unknown Drug Allergy Active ENCOUNTERS from 1955 to 2021-08-28 Encounter Location Date Provider Diagnosis [address] [phone] [place] [address] Aug, Jovan Nguyen Hyperlipidemia E78.5 IMMUNIZATIONS Vaccine Route Administration Date Status Influenza [...] School Language: Question Answer Notes Languages spoken: Azerbaijani Jehovah'S Witness: Question Answer Notes Jehovah'S Witness No anabaptist beliefs that would impact health [...] Notes Start Da te End Date Status traZODone HCl 50 MG 1 tablet at [...] a day for 30 Days Nov, Active Eucerin - as directed Externally Ac tive Atorvastatin Calcium 80 MG 1 tablet Orally Once a day for 30 day (s) Aug, Active Sertraline HCl 100 MG 1 tablet Orally Once a day for 30 Days Active BD Ultra-fine Pen [place] 32G 4mm as directed E11.9 Daily for 30 Days Active Omeprazole 40 MG 1 capsule Orally Once a day 30 minutes before lunch for 30 day(s) Active Bengay Greaseless 10-15 [...] insomnia. MDD=1 for 30 Days Aug, Active Gabapentin 100 MG 1 capsule Orally three times a day for 30 Days Active traMADol HCl 50 MG 1 tablet as needed Orally Once a day Apr, Active Jardiance 25 MG 1 tablet Orally Once a day for 30 day(s) Active Lantus SoloStar 100 UNIT/ML 30 units Subcutaneous Daily for 30 Days Active Famotidine 20 MG 1 tablet Orally Once a day at HS Active MiraLax 17 GM/SCOOP as directed Orally Once a day at HS for 30 D ays Dec, Active Tylenol 325 MG 2 tab Orally tid for 30 Days Active Januvia 50 MG as directed Orally Once a day for 30 Days Active Aspirin 81 MG 1 tablet Orally Once a day for 30 day(s) March, Active Hydroxychloroquine Sulfate 200 MG as directed Orally Daily for 3 0 Days Jan, Active Januvia 50 MG 1 tablet Orally Once a day for 30 Days Active Gabapentin 100 MG 1 cap Orally three times daily for 30 Days Active PROCEDURES No Information RESULTS No Results REASON FOR VISIT Med clarification MEDICAL (GENERAL) HISTORY Type Description Date [...] Clinical Notes Aug, Hyperlipidemia (ICD-10 - E78.5) PLAN OF TREATMENT Medication Medication Name Sig Start Date Stop Date Januvia 50 MG 1 tablet Orally Once a day for 30 Days Gabapentin 100 MG 1 cap Orally three times daily for 30 Days Famotidine 20 MG 1 tablet Orally Once a day at HS Aspirin 81 MG 1 tablet Orally Once a day for 30 day(s) March, Telmisartan 40 MG 1 tab Orally Once a day for 30 day(s) Warfarin Sodium 5 MG 1 tablet Orally Once a day for 30 Days 2020 MiraLax 17 GM/SCOOP as directed Orally Once a day at HS for 30 Days Dec, Lantus SoloStar 100 UNIT/ML 30 units Subcutaneous Daily for 30 D ays BD Ultra-fine Pen [place] 32G 4mm as directed E11.9 Daily for 30 Days Hydroxychloroquine Sulfate 200 MG 1 tablet with food o r milk Orally Once a day for 30 Days Tylenol 325 MG 2 tab Orally tid for 30 Days Gabapentin 100 MG 1 capsule Orally three times a day for 30 Days Atorvastatin Calcium 80 MG 1 tablet Orally Once a day for 30 day(s) Aug, traMADol HCl 50 MG 1 tablet as needed Orally Once a day Apr, Bengay Greaseless 10-15 % apply to affected right shou lder Externally bid for 30 Days traZODone HCl 50 MG 1 tablet at bedtime as neede d Orally Once a day for 30 day(s) Omeprazole 40 MG 1 capsule Orally Once a day 30 minutes before lunch for 30 day(s) Sertraline HCl 100 MG 1 tablet Orally Once a day for 30 Days Ambien 5 MG 1 tablet at bedtime Orally O nce a day as needed for insomnia. MDD=1 for 30 Days Aug, Jardiance 25 MG 1 tablet Orally Once a day for 30 day(s) Next Appt Details Provider Name:Gloria Agrawal, 2020-11 02:30:00 PM, [address] [facility], , [place], [address], Insurance Providers Payer Name Payer Address Payer Phone Insured Name Patient Relati onship to Insured Coverage Start Date Coverage End Date MEDICAID [employer] [address] [facility] [id number] [place] MEDICARE Part A and B [address] [facility] [address] [place] self
--- OUTSIDE RECORDS SUMMARY | 2021-09-16 20:12 | CCD ---
Author Author [facility] Organization [facility] Address Unknown Phone Unavailable Care Team Providers Care Nascar Racer Name Role Phone Gloria Agrawal Unavailable PROBLEMS Type Condition ICD9-CM Code [id number] Code Onset Dates Condition S tatus W/U Status Risk SNOMED Code Notes Problem Diabetes mellitus, type 2 E11.9 Active confirmed 72886024 Problem SLE (systemic lupus erythematosus) M32.9 Activ e confirmed 39197479 Problem Major depressive disorder F32.9 Active confirmed 886314769 Problem Gastroesophageal reflux disease K21.9 Active confi rmed 724568526 Problem Fe deficiency anemia D50.9 Active confirmed 20251539 Problem 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 Active confirmed 076160686 Problem Essential hypertension I10 Active confirmed 55216214 Problem Hyperlipidemia E78.5 Active confirmed 45447 004 Problem prison current use of anticoagulant Z79.01 A ctive confirmed 941289557 Problem Seasonal allergic rhinitis, unspecified trigger J3 0.2 Active confirmed 354773817 Problem Chronic kidney disease, stage 3 N18.3 Active confi rmed 751975120 Problem Encounter for therapeutic drug level monitoring Z5 1.81 Active confirmed 942585129 Problem 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 Active confirmed 566767039 Problem Constipation K59.00 Active confirmed 1677116 8 Problem Insomnia G47.00 Active confirmed 072521435 Problem Paroxysmal atrial fibrillation I48.0 Active confir med 999198841 Problem Iron deficiency anemia, unspecified iron deficiency an emia type D50.9 Active confirmed 80593411 Problem Tubulovillous adenoma of colon D12.6 Active confir med 005871617 Problem Chronic kidney disease (CKD), stage 3 (moderate) N 18.3 Active confirmed 035212812 ALLERGIES Allergen (clinical drug ingredient) Drug/Non Drug Allergy do cumented on EMR Reaction Allergy Type Onset Date Status lisinopril Lisinopril([facility] Code:[address]-55) unknown Drug Allergy Active ENCOUNTERS from 1955 to 2021-08-06 Encounter Location Date Provider Diagnosis [address] [phone] [place] [address] Aug, Gloria Agrawal Insomnia G47.00 IMMUNIZATIONS Vaccine Route [...] School Language: Question Answer Notes Languages spoken: Spanish Christian: Question Answer Notes Christian No jainism beliefs that would impact health care. Sexual [...] or milk Orally Once a day Active Ambien 5 MG 1 tablet at bedtime Orally O nce a day as needed for insomnia. MDD=1 for 30 Days Aug, Active BD Ultra-fine Pen [place] 32G 4mm as directed E11.9 Daily for 30 Days Active Jardiance 25 MG 1 tablet Orally Once a day for 30 day(s) Active Telmisartan 40 MG [...] 1 cap Orally three times daily Active Eucerin - as directed Externally Ac tive Tylenol 325 MG 2 tab Orally tid for 30 Days Active Flonase Allergy Relief 50 MCG/ACT 1 spray in each nost ril Nasally Once a day for 30 day(s) Active Sertraline HCl 100 MG 1 tablet Orally Once a day for 30 Days Active Omeprazole 40 MG 1 capsule Orally Once a day 30 minutes before lunch for 30 day(s) Active Gabapentin 100 MG 1 capsule Orally three times a day for 30 Days Active MiraLax 17 GM/SCOOP as directed Orally Once a day at HS for 30 D ays Dec, Active traZODone HCl 50 MG 1 tablet [...] Treatment Notes Treatm ent Clinical Notes Aug, Insomnia (ICD-10 - G47.00) PLAN OF TREATMENT [...] tablet Orally Once a day at HS Hydroxychloroquine Sulfate 200 MG 1 tablet with food or milk Orally Once a day Ambien 5 MG 1 tablet at bedtime Orally O nce a day as needed for insomnia. MDD=1 for 30 Days Aug, BD Ultra-fine Pen [place] 32G 4mm as directed E11.9 Daily for [...] 2 tab Orally tid for 30 Days MiraLax 17 GM/SCOOP as directed Orally Once a day at HS for 30 Days Dec, traMADol HCl 50 MG 1 tablet as needed Orally Once a day Apr, Atorvastatin Calcium 40 MG 1 tablet Orally [...] Provider Name:Gloria Agrawal, 2020-11 02:30:00 PM, [address] [facility], , [place], [address], Insurance Providers Payer Name Payer Address Payer Phone Insured Name Patient Relati onship to Insured Coverage Start Date Coverage End Date MEDICARE Part A and B [address] [facility] [id number] [place] MEDICAID [employer] [address] [facility] [id number] [place] self
--- OUTSIDE RECORDS SUMMARY | 2021-09-16 20:12 | CCD ---
Author Author [facility] Organization [facility] Address Unknown Phone Unavailable Care Team Providers Care Identification Clerk Name Role Phone Gloria Agrawal Unavailable PROBLEMS Type Condition ICD9-CM Code OMS25-PD Code Onset Dates Condition S tatus W/U Status Risk SNOMED Code Notes Problem Diabetes mellitus, type 2 E11.9 Active confirmed 89927908 Problem SLE (systemic lupus erythematosus) M32.9 Activ e confirmed 41495245 Problem Major depressive disorder F32.9 Active confirmed 893729531 Problem Gastroesophageal reflux disease K21.9 Active confi rmed 799446822 Problem Fe deficiency anemia D50.9 Active confirmed 05061265 Problem 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 Active confirmed 804437449 Problem Essential hypertension I10 Active confirmed 17368346 Problem Hyperlipidemia E78.5 Active confirmed 91316 004 Problem [facility] current use of anticoagulant Z79.01 A ctive confirmed 722291390 Problem Seasonal allergic rhinitis, unspecified trigger J3 0.2 Active confirmed 437448740 Problem Chronic kidney disease, stage 3 N18.3 Active confi rmed 568621605 Problem Encounter for therapeutic drug level monitoring Z5 1.81 Active confirmed 702842042 Problem 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 Active confirmed 053786256 Problem Constipation K59.00 Active confirmed 9930807 8 Problem Insomnia G47.00 Active confirmed 438591860 Problem Paroxysmal atrial fibrillation I48.0 Active confir med 784769879 Problem Iron deficiency anemia, unspecified iron deficiency an emia type D50.9 Active confirmed 95279619 Problem Tubulovillous adenoma of colon D12.6 Active confir med 743620273 Problem Chronic kidney disease (CKD), stage 3 (moderate) N 18.3 Active confirmed 456912339 ALLERGIES Allergen (clinical drug ingredient) Drug/Non Drug Allergy do cumented on EMR Reaction Allergy Type Onset Date Status lisinopril Lisinopril([facility]NOTE 2] Code:[address]-02) unknown Drug Allergy Active ENCOUNTERS from 1955 to 2021-09-12 Encounter Location Date Provider Diagnosis [place] [id number] [phone] [place] [address] Sep, Gloria Kennedyangella Diabetes mellitus, type 2 E1 1.9 ; Essential hypertension I10 ; Hemiplegia and hemiparesis f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.351 ; SLE (systemic lupus erythematosus) M32.9 ; Hyperlipidemia E78.5 ; Insomnia G47.00 ; Gastroesophageal reflux disease K21.9 ; Fe deficiency anemia D50.9 ; Major depressive disorder F32.9 ; Cervical cancer screening Z12.4 ; Colon cancer screening Z12.11 ; Chronic right shoulder pain M25.511 ; Chronic kidney disease (CKD), stage 3 (moderate) N18.3 ; Tubulovillous adenoma polyp of colon D12.6 and Constipation K59.00 IMMUNIZATIONS Vaccine Route Administration Date Status Influenza [...] School Language: Question Answer Notes Languages spoken: Puerto Rican Methodist: Question Answer Notes Methodist No jehovah's witness beliefs that would impact health care. Sexual [...] FOR REFERRAL No Information VITAL SIGNS Weight 218 lbs Sep, Weight-kg 98.88 kg Sep, Height 68 in Sep, BMI 33.14 kg/m2 Sep, Heart Rate 102 /min Sep, Respiratory Rate 18 /min Sep, Temperature 97.4 degrees Fahrenheit Sep, Oximetry 97% Sep, Blood pressure systolic 134 mm Hg Sep, Blood pressure diastolic 80 mm Hg Sep, MEDICATIONS Medication SIG (Take, Route, Frequency, Duration) Notes Start Da te End Date Status Flonase Allergy Relief 50 MCG/ACT 1 spray in each nost ril Nasally Once a day for 30 day(s) Active Gabapentin 100 MG 1 cap Orally three times daily for 30 Days Active Atorvastatin Calcium 40 MG 1 tablet Orally Once a day Active Hydroxychloroquine Sulfate 200 MG as directed Orally Daily for 3 0 Days Jan, Active Warfarin Sodium 5 MG 1 tablet Orally Once a day for 30 Days Nov, Active Atorvastatin Calcium 80 MG 1 tablet Orally Once a day for 30 day (s) Aug, Active traMADol HCl 50 MG 1 tablet as needed Orally Once a day Active Jardiance 25 MG 1 tablet Orally Once a day for 30 day(s) Active BD Ultra-fine Pen [place] 32G 4mm as directed E11.9 Daily for 30 Days Active traZODone HCl 50 MG 1 tablet at bedtime as neede d Orally Once a day for 30 day(s) Active MiraLax 17 GM/SCOOP as directed Orally Once a day at HS for 30 Days Active Famotidine 20 MG 1 tablet Orally Once a day at HS Active Sertraline HCl 100 MG 1 tablet Orally Once a day Active Lantus SoloStar 100 UNIT/ML 30 units Subcutaneous Daily for 30 Days Active Milk of Magnesia 400 MG/5ML 5 ml at least 4 hours betw een doses as needed Orally Four times a day Active traZODone HCl 50 MG 1 tablet at bedtime as neede d Orally Once a day for 30 day(s) Active Januvia 50 MG 1 tablet Orally Once a day for 30 Days Active Januvia [...] or milk Orally Once a day Active Eucerin - as directed Externally Ac tive Ambien 5 MG 1 tablet at bedtime Orally Once a day Active Gabapentin 100 MG 1 capsule Orally three times a day for 30 Days Active Aspirin 81 MG 1 tablet Orally Once a day for 30 day(s) Active Bengay Greaseless 10-15 % apply to affected right shou lder Externally bid for 30 Days Active Tylenol 325 MG 2 tab Orally tid for 30 Days Active PROCEDURES No Information RESULTS No Results REASON FOR VISIT MED EVAL MEDICAL (GENERAL) HISTORY Type Description Date Medical [...] Diabetes mellitus, type 2 (ICD-10 - E11.9) Advised exercise/dietary hernán MENDOZA referral in place for Dr. Jorge lantus to 30 units, jardiance 25mg, Januvia 50mg 12/2020 A1c 5.5 , increase weight gain17 ibs in 2 months 08/2020 7.8 HBSs 500 given GLADYS med adjusted. stop metformin, CTD. (Insurance not covering Tresiba) therefore lantus 09/2020 8.4 08/2020 7.8 04/2020 4.8 08 Sep, 2021 Essential hypertension (ICD-10 - I10) 12/2020 elevated 150/90 increase to 40mg contingency: amlodipine 09/2020 Renal US: No RAYMON 03/2019 Tolerating CTD 12.5, Telm 20 mg Stable HBPs therefore continue 01/2019 reviewed [facility] been on HCT, Spirno for HTN. no evidence of CHF (start ARB given DM, CTD) 06/2019 16, 1.1, k 4.4, Mg 2.2 12/2018 1.1, 16, K 4.6, Mg 1.6 Sep, Hemiplegia and hemiparesis f ollowing cerebral [...] AD[facility] available in [facility] as of 11/2015 patient is continued on coumadin for therapeutic rx of Stroke. No documentation of A-fib. EKG tracing consistently with NSR. 08/2015 EKG: NSR Sep, SLE (systemic lupus erythematosus) (ICD-10 - M32 .9) stable on current regimen Needs REJI given [facility] use of high risk medication ] 01/2019 DANIEL hep2 negative, C3, C4 unremarkable. therefore consult to Rheum for consult opinion +/- to continue Hydroxychloroquine no initial labs/diagnosis records not available. Sep, Hyperlipidemia (ICD-10 - E78.5) continue current regimen 12/2020 85, 59, 166 06/2019 89, 58, 128 12/2018 72, 59, 150 Sep, Insomnia (ICD-10 - G47.00) stable on current regimen Sep, Gastroesophageal reflux disease (ICD-10 - K21.9) omepr 40mg, Sep, Fe deficiency anemia (ICD-10 - D50.9) 06/2019 12.5 MCV 82.5, Ret 1.2 12/2018 12, MCV 79 , Ferr 198, TIBC 289 Sep, Major depressive disorder (ICD-10 - F32.9) stable mood Sep, Cervical cancer screening (ICD-10 - Z12.4) 05/2019 HPV/Pap: negative Sep, Colon cancer screening (ICD-10 - Z12.11) 11/2020: pathology: tubulovillous fragment. 11/2020: Diverticulosis in the recto-sigmoid colon, in the sigmoid colon and in the descending colon.One large polyp at the hepatic flexure, removed with a cold snare. Resected and retrieved. Treated with argon plasma coagulation (APC). 04/2020: Proximal ascending colon, tubulovillous adenoma, biopsy/incomplete resection: Multiple fragments of villous and tubulovillous adenoma. 12/2018 [...] 38 04/2020 1.3/ 40 GFR 40 03/2020 1.0/20 GFR 54 Sep, Tubulovillous adenoma polyp of colon (ICD-10 - D 12.6) 11/2020: pathology: tubulovillous fragment. 11/2020: Diverticulosis in the recto-sigmoid colon, in the sigmoid colon and in the descending colon.One large polyp at the hepatic flexure, removed with a cold snare. Resected and retrieved. Treated with argon plasma coagulation (APC). 04/2020: Proximal ascending colon, tubulovillous adenoma, biopsy/incomplete resection: Multiple fragments of villous and tubulovillous adenoma. Sep, Constipation (ICD-10 - K59.00) miralax daily PLAN OF TREATMENT Medication Medication Name Sig Start Date Stop Date Bengay Greaseless 10-15 % apply to affected right shou lder Externally bid for 30 Days Tylenol 325 MG 2 tab Orally tid for 30 Days Aspirin 81 MG 1 tablet Orally Once a day for 30 day(s) Gabapentin 100 MG 1 capsule Orally three times a day for 30 Days MiraLax 17 GM/SCOOP as directed Orally Once a day at HS for 30 D ays Omeprazole 40 MG 1 capsule Orally Once a day 30 minutes before lunch for 30 day(s) Famotidine 20 MG 1 tablet Orally Once a day at HS BD Ultra-fine Pen [place] 32G 4mm as directed E11.9 Daily for 30 Days Jardiance 25 MG 1 tablet Orally Once a day for 30 day(s) Sertraline HCl 100 MG 1 tablet Orally Once a day Ambien 5 MG 1 tablet at bedtime Orally Once a day traZODone HCl 50 MG 1 tablet at bedtime as neede d Orally Once a day for 30 day(s) Telmisartan 40 MG 1 tab Orally Once a day for 30 day(s) Januvia 50 MG 1 tablet Orally Once a day for 30 Days Hydroxychloroquine Sulfate 200 MG 1 tablet with food or milk Orally Once a day Lantus SoloStar 100 UNIT/ML 30 units Subcutaneous Daily for 30 D ays traMADol HCl 50 MG 1 tablet as needed Orally Once a day Atorvastatin Calcium 40 MG 1 tablet Orally Once a day Treatment Notes Assessment Notes Clinical Notes Tubulovillous adenoma polyp of colon 11/03 021: pathology: tubulovillous fragment.11/2020: Diverticulosis in the recto-sigmoid colon, in the sigmoid colon and in the descending colon.One large polyp at the hepatic flexure, removed with a cold snare. Resected and retrieved. Treated with argon plasma coagulation (APC).04/2020: Proximal ascending colon, tubulovillous adenoma, biopsy/incomplete resection: Multiple fragments of villous and tubulovillous adenoma. Diabetes mellitus, type 2 Advised exerci se/dietary chagnesDEE referral in place for Dr. Russo to 30 units, jardiance 25mg, Januvia 50mg12/2020 A1c 5.5 , increase weight gain17 ibs in 2 eidgjs67/2020 7.8 HBSs 500 given GLADYS med adjusted. stop metformin, CTD. (Insurance not covering Tresiba) therefore pswqyq16/2020 8.410 7. 4.8 Chronic kidney disease (CKD), stage 3 (moderate) 09/2020 Renal US: No RAS08/2020 1.4/ 38 GFR 386/2019 1.3/ 40 GFR 405/2019 1.0/20 GFR 54 Essential hypertension 12/2020 elevated 1 50/90 increase to 40mgcontingency: zymcmuwotz84/2020 Renal US: No RAS03/2019 Tolerating CTD 12.5, Telm 20 mg Stable HBPs therefore continue01/2019 reviewed [facility] records been on HCT, Spirno for [...] ambulationR arm hemiplegia c [facility] as of 11/2015 patient is continued on coumadin for therapeutic rx of Stroke.No documentation of A-fib. EKG tracing consistently with NSR.08/2015 EKG: NSR Constipation miralax daily SLE (systemic lupus erythematosus) stabl e on current regimenNeeds REJI given [facility] use of high risk medication]01/2019 DANIEL hep2 negative, C3, C4 unremarkable. therefore consult to Rheum for consult opinion +/- to continue Hydroxychloroquineno initial labs/diagnosis records not available. Hyperlipidemia continue current reg imen12/2020 85, 59, 1668 89, 58, 1283/2019 72, 59, 150 Insomnia stable on current re gimen Gastroesophageal reflux disease omepr 40 mg, Chronic right shoulder pain ongoing R sh oulder blade pain add BengayFavor R shoulder strain given RUE hemiplegia s/p Strokedefes further PT/OT09/2018 thoracic spine x-ray: Normal12/2015 R shoulder x-ray: normal Colon cancer screening 11/2020: pathology : tubulovillous fragment.11/2020: Diverticulosis in the recto-sigmoid colon, in the sigmoid colon and in the descending colon.One large polyp at the hepatic flexure, removed with a cold snare. Resected and retrieved. Treated with argon plasma coagulation (APC).04/2020: Proximal ascending colon, tubulovillous adenoma, biopsy/incomplete resection: Multiple fragments of villous and tubulovillous adenoma.12/2018 Tubulovillous adneoma. repeat 03/[address] Church Fe deficiency anemia 06/2019 12.5 MCV 82. 5, Ret 1. 12, MCV 79 , Ferr 198, TIBC 289 Major depressive disorder stable mood Cervical cancer screening 05/2019 HPV/Pap : negative Pending Tests Test Name Order Date HEMOGLOBIN A1c 2021-09-09 Comprehensive Metabolic Profile (CMP) 2021-09-09 MICROALBUMIN RANDOM 2021-09-09 CBC with Differential 2021-09-09 FERRITIN 2021-09-09 LIPID PANEL (CARDIAC RISK) 2021-09-09 FREE T4 & TSH PANEL 2021-09-09 Next Appt Details 6 Months Reason: Provider Name:Gloriamarc Agrawal, 03-11 11:00:00 AM, [address], , [place], [address], Insurance Providers Payer Name Payer Address Payer Phone Insured Name Patient Relati onship to Insured Coverage Start Date Coverage End Date MEDICAID [employer] [address] [facility] [address] [place] MEDICARE Part A and B [address] [facility] [id number] [place]
--- OUTSIDE RECORDS SUMMARY | 2021-09-16 20:12 | CCD | Continuity of Care Document ---
Author Author Meghan SELLERS M.D. Organization Unknown Address [address] [place] [address] Phone [phone] Care Team Providers Care House Detective Name Role Phone Rebecca AgrawalP AUTM Problems [...] Lantus Solostar 100U nit/ML Solution Pen-Inject Soosairayane,Ashley SCENE AND LIGHTING DESIGN LECTURER Warfarin Sodium 5mg Tablets Soosairayane,Rebecca Hyatt [employer] AND L[employer] DESIGN LECTURER Famotidine 20mg Tablets Soosairayane,Rebecca Hyatt [facility] Zolpidem Tartrate 5mg Tablets Soosairayane,Rebecca Hyatt [employer]ENE AND LIGHTING DESIGN LECTURER Trazodone HCL 50mg Tablets Soosairayane,Rebecca Hyatt [facility] Milk Of Magnesia 400mg/5ML Suspension Unknown [...] H/L Range Note Laboratory test finding 07/29/2021 [facility] [address] [place] [address] Pathology Request For Service (SEE NOTE) 1, [...] months Procedures Date Code Description Status 07/29/2021 23776 Colonoscopy Flexible W/Biopsy Co mpleted 06/06/2021 72378 Office/Outpatient Established Lo w MDM 20-29 Min [...]
--- OUTSIDE RECORDS SUMMARY | 2021-09-16 20:12 | CCD ---
Author Author [facility] Organization [facility] Address Unknown Phone Unavailable Care Team Providers Care Architectural Design Lecturer Name Role Phone Gloria Agrawal Unavailable PROBLEMS Type Condition ICD9-CM Code [id number] Code Onset Dates Condition S tatus W/U Status Risk SNOMED Code Notes Problem Diabetes mellitus, type 2 E11.9 Active confirmed 25058456 Problem SLE (systemic lupus erythematosus) M32.9 Activ e confirmed 50211453 Problem Major depressive disorder F32.9 Active confirmed 707310094 Problem Gastroesophageal reflux disease K21.9 Active confi rmed 815168762 Problem Fe deficiency anemia D50.9 Active confirmed 67143020 Problem 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 Active confirmed 969655779 Problem Essential hypertension I10 Active confirmed 61497160 Problem Hyperlipidemia E78.5 Active confirmed 66435 004 Problem longterm current use of anticoagulant Z79.01 A ctive confirmed 605059865 Problem Seasonal allergic rhinitis, unspecified trigger J3 0.2 Active confirmed 210567402 Problem Chronic kidney disease, stage 3 N18.3 Active confi rmed 220711154 Problem Encounter for therapeutic drug level monitoring Z5 1.81 Active confirmed 694076353 Problem 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 Active confirmed 453918731 Problem Constipation K59.00 Active confirmed 2871919 8 Problem Insomnia G47.00 Active confirmed 668993430 Problem Paroxysmal atrial fibrillation I48.0 Active confir med 593696898 Problem Iron deficiency anemia, unspecified iron deficiency an emia type D50.9 Active confirmed 76888607 Problem Tubulovillous adenoma of colon D12.6 Active confir med 025800131 Problem Chronic kidney disease (CKD), stage 3 (moderate) N 18.3 Active confirmed 049161238 ALLERGIES Allergen (clinical drug ingredient) Drug/Non Drug Allergy do cumented on EMR Reaction Allergy Type Onset Date Status lisinopril Lisinopril([facility] Code:[address]-43) unknown Drug Allergy Active ENCOUNTERS from 1955 to 2021-08-07 Encounter Location Date Provider Diagnosis [place] [id number] [facility] [phone] [place] [address] Aug, Gloria Wilsontacosyane Hemiplegia of dominant side following cerebrovascular accident (CVA) I69.359 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 Z79.01 IMMUNIZATIONS Vaccine [...] School Language: Question Answer Notes Languages spoken: Lao Voodoo: Question Answer Notes Voodoo No orthodoxy beliefs that would impact health [...] 30 Days Aug, Active BD Ultra-fine Pen [place] 32G 4mm as directed E11.9 Daily for [...] Treatment Notes Treatm ent Clinical Notes Aug, Hemiplegia of dominant side following cerebrovascular accident (CVA) (ICD-10 - I69.359) Aug, intermediate project manager current use of anticoagulant (ICD-10 - Z79.01) [...] for 30 Days Aug, BD Ultra-fine Pen [place] 32G 4mm as directed E11.9 Daily for [...] Orally Once a day for 30 Days Future Test Test Name Order Date PT-INR [id number] Next Appt Details Provider Name:Gloria Agrawal, 2020-11 02:30:00 PM, [address] [facility], , [place], [address], Insurance Providers Payer Name Payer Address Payer Phone Insured Name Patient Relati onship to Insured Coverage Start Date Coverage End Date MEDICAID [facility] [address] [facility] [id number] [place] MEDICARE Part A and B [address] [facility] [id number] [place] self
--- OUTSIDE RECORDS SUMMARY | 2021-09-16 20:12 | CCD ---
Author Author [facility] Organization [facility] Address Unknown Phone Unavailable Care Team Providers Care Sign Manufacturer Name Role Phone Gloria Agrawal Unavailable PROBLEMS Type Condition ICD9-CM Code ZAU23-TD Code Onset Dates Condition S tatus W/U Status Risk SNOMED Code Notes Problem Diabetes mellitus, type 2 E11.9 Active confirmed 18966980 Problem SLE (systemic lupus erythematosus) M32.9 Activ e confirmed 46774955 Problem Major depressive disorder F32.9 Active confirmed 555135694 Problem Gastroesophageal reflux disease K21.9 Active confi rmed 988408781 Problem Fe deficiency anemia D50.9 Active confirmed 45611853 Problem 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 Active confirmed 465014244 Problem Essential hypertension I10 Active confirmed 82480179 Problem Hyperlipidemia E78.5 Active confirmed 82954 004 Problem FDC current use of anticoagulant Z79.01 A ctive confirmed 134530517 Problem Seasonal allergic rhinitis, unspecified trigger J3 0.2 Active confirmed 009992090 Problem Chronic kidney disease, stage 3 N18.3 Active confi rmed 803259733 Problem Encounter for therapeutic drug level monitoring Z5 1.81 Active confirmed 598678862 Problem 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 Active confirmed 493665775 Problem Constipation K59.00 Active confirmed 8913577 8 Problem Insomnia G47.00 Active confirmed 763166746 Problem Paroxysmal atrial fibrillation I48.0 Active confir med 759832637 Problem Iron deficiency anemia, unspecified iron deficiency an emia type D50.9 Active confirmed 16553529 Problem Tubulovillous adenoma of colon D12.6 Active confir med 365797248 Problem Chronic kidney disease (CKD), stage 3 (moderate) N 18.3 Active confirmed 302221401 ALLERGIES Allergen (clinical drug ingredient) Drug/Non Drug Allergy do cumented on EMR Reaction Allergy Type Onset Date Status lisinopril Lisinopril([facility] Code:[address]-56) unknown Drug Allergy Active ENCOUNTERS from 1955 to 2021-09-03 Encounter Location Date Provider Diagnosis [address] [phone] [place] [address] Sep, Gloria Agrawal Insomnia G47.00 IMMUNIZATIONS Vaccine Route [...] School Language: Question Answer Notes Languages spoken: Yakut Mandaen: Question Answer Notes Mandaen No zoroastrian beliefs that would impact health care. Sexual [...] Notes Start Da te End Date Status Telmisartan 40 MG 1 tab Orally Once a day for 30 day(s) Active Hydroxychloroquine Sulfate 200 MG 1 tablet with food o r milk Orally Once a day for 30 Days Active Ambien 5 MG 1 tablet at bedtime Orally O nce a day as needed for insomnia. MDD=1 for 30 Days Sep, Active Warfarin Sodium 5 MG 1 tablet Orally Once a day for 30 Days Nov, Active Sertraline HCl 100 MG 1 tablet Orally Once a day for 30 Days Active Atorvastatin Calcium 80 MG 1 tablet Orally Once a day for 30 day (s) Aug, Active traZODone HCl 50 MG 1 tablet at bedtime as neede d Orally Once a day for 30 day(s) Active BD Ultra-fine Pen [place] 32G 4mm as directed E11.9 Daily for 30 Days Active Eucerin - as directed Externally Ac tive Beng[place] Greaseless 10-15 % apply to affected [...] needed Orally Once a day Apr, Active Omeprazole 40 MG 1 capsule Orally Once a day 30 minutes before lunch for 30 day(s) Active Lantus SoloStar 100 [...] Treatment Notes Treatm ent Clinical Notes Sep, Insomnia (ICD-10 - G47.00) PLAN OF TREATMENT Medication Medication Name Sig Start Date Stop Date Januvia 50 MG 1 tablet Orally Once a day for 30 Days Gabapentin 100 MG 1 cap Orally three times daily for 30 Days Famotidine 20 MG 1 tablet Orally Once a day at HS Aspirin 81 MG 1 tablet Orally Once a day for 30 day(s) March, Ambien 5 MG 1 tablet at bedtime Orally O nce a day as needed for insomnia. MDD=1 for 30 Days Sep, Warfarin Sodium 5 MG 1 tablet Orally Once a day for 30 Days 2020 MiraLax 17 GM/SCOOP as directed Orally Once a day at HS for 30 Days Dec, Lantus SoloStar 100 UNIT/ML 30 units Subcutaneous Daily for 30 D ays BD Ultra-fine Pen [place] 32G 4mm as directed E11.9 Daily for [...] shou lder Externally bid for 30 Days Telmisartan 40 MG 1 tab Orally Once a day for 30 day(s) Sertraline HCl 100 MG 1 tablet Orally Once a day for 30 Days traZODone HCl 50 MG 1 tablet at bedtime as neede d Orally Once a day for 30 day(s) Jardiance 25 MG 1 tablet Orally Once a day for 30 day(s) Omeprazole 40 MG 1 capsule Orally Once a day 30 minutes before lunch for 30 day(s) Next Appt Details Provider Name:Gloria Agrawal, 2020-11 02:30:00 PM, [address] [facility], , [place], [address], Insurance Providers Payer Name Payer Address Payer Phone Insured Name Patient Relati onship to Insured Coverage Start Date Coverage End Date MEDICAID [employer] [address] [facility] [id number] [place] MEDICARE Part A and B [address] [facility] [phone] [place]
--- OUTSIDE RECORDS SUMMARY | 2021-09-16 20:14 | CCD ---
Author Author [facility] Organization [facility] Address Unknown Phone Unavailable Care Team Providers Care Assistant Operator Name Role Phone Glenna Sellers MD Unavailable [...] Unavailable Unavailable Glenna Sellers MD Unavailable Unavailable MarloGlenna MD Unavailable Unavailable Marlo S Noé YOO Unavailable Unavailable Marlo, S Noé MD Unavailable Unavailable Marlo S Noé YOO Unavailable Unavailable Marlo, S Noé YOO Unavailable Unavailable Marlo S Noé MD Unavailable Unavailable Marlo, S Noé MD Unavailable Unavailable Marlo, S Noé MD Unavailable Unavailable Marlo, S Noé MD Unavailable Unavailable Marlo, S Noé MD Unavailable Unavailable Marlo, S Noé MD Unavailable Unavailable Marlo, S Noé MD Unavailable Unavailable Marlo, S Noé MD Unavailable Unavailable Marlo, S Noé MD Unavailable Unavailable Marlo, S Noé Unavailable Unavailable Marlo, S Noé MD Unavailable Unavailable Marlo, S Noé MD Unavailable Unavailable Marlo, S Noé YOO Unavailable Unavailable Marlo, S Noé YOO Unavailable Unavailable Marlo, S Noé YOO Unavailable Unavailable Marlo, S Noé YOO Unavailable Unavailable Marlo, S Noé MD Unavailable Unavailable Marlo, S Noé YOO Unavailable Unavailable Marlo, S Noé YOO Unavailable Unavailable Marlo S Noé YOO Unavailable Unavailable Marlo S Noé YOO Unavailable Unavailable Marlo S Noé YOO Unavailable Unavailable Marlo S Noé YOO Unavailable Unavailable Marlo S Noé YOO Unavailable Unavailable Marlo, S Noé YOO Unavailable Unavailable Marlo, S Noé YOO Unavailable Unavailable Hegard, Josselyn DATA WAREHOUSE ARCHITECT Unavailable Unavailable Hegard, Josselyn DATA WAREHOUSE ARCHITECT Unavailable Unavailable Hegard, Josselyn DATA WAREHOUSE ARCHITECT Unavailable Unavailable Hegard, Josselyn DATA WAREHOUSE ARCHITECT Unavailable Unavailable Hegard, Josselyn DATA WAREHOUSE ARCHITECT Unavailable Unavailable Hegard, Josselyn DATA WAREHOUSE ARCHITECT Unavailable Unavailable Hegard, Josselyn DATA WAREHOUSE ARCHITECT Unavailable Unavailable Hegard, Josselyn DATA WAREHOUSE ARCHITECT Unavailable Unavailable Hegard, Josselyn DATA WAREHOUSE ARCHITECT Unavailable Unavailable Hegard, Josselyn DATA WAREHOUSE ARCHITECT Unavailable Unavailable Hegard, Josselyn DATA WAREHOUSE ARCHITECT Unavailable Unavailable Hegard, Josselyn DATA WAREHOUSE ARCHITECT Unavailable Unavailable Hegard, Josselyn DATA WAREHOUSE ARCHITECT Unavailable Unavailable Hegard, Josselyn DATA WAREHOUSE ARCHITECT Unavailable Unavailable Hegard, Josselyn DATA WAREHOUSE ARCHITECT Unavailable Unavailable Hegard, Josselyn DATA WAREHOUSE ARCHITECT Unavailable Unavailable Hegard, Josselyn DATA WAREHOUSE ARCHITECT Unavailable Unavailable Re-disclosure Warning The records that [...] is protected by Article 27-F of the [facility] Public Health law. If you continue you may have access to information: Regarding HIV / AIDS; Provided by facilities licensed or operated by the [facility] Office of Mental Health; or Provided by the [facility] Office for People With Developmental Disabilities. If such information is present, then the following [facility] mandated warning applies: This information has [...] law may result in a fine or care home sentence or both. A general authorization for the release of medical or other information is NOT sufficient authorization for further disc losure. Family History Family Member Name Family Member Gender Family Member Status Date o f Status Description Data Source(s) Unknown Male Problem MEDENT ([facility]) Unknown Unknown Problem MEDENT ([facility], ) Encounters Encounter Providers Location Date Indications Data Source(s ) Office Visit, Est Pt., Level [address] PC [address] [place] [address] 09/09/2021 12:00:00 AM EST eCW1 ([facility]) Unknown [address] [facility] [address] 09/04/2021 12:00:00 AM EDT eCW1 ([facility]) Unknown [address] [facility] [address] 09/03/2021 12:00:00 AM EDT [facility] [place] [address] [facility] [address] 08/29/2021 12:00:00 AM EDT eCW1 ([facility] [place] [address] [facility] [address] 08/27/2021 12:00:00 AM EDT eCW1 ([facility]) [place] [address] [facility] [address] 08/26/2021 12:00:00 AM EDT eCW1 ([facility]) Unknown [address] [facility] [address] 08/07/2021 12:00:00 AM EDT eCW1 ([facility]) [place] [address] [facility] [place] [address] 08/06/2021 12:00:00 AM EDT eCW1 ([facility]) [place] [address] [facility] [place] [address] 07/05/2021 12:00:00 AM EDT eCW1 ([facility]) Unknown [address] [facility] [place] [address] 07/03/2021 12:00:00 AM EDT eCW1 ([facility]) [place] [address] [facility] [address] 07/02/2021 12:00:00 AM EDT eCW1 ([facility]) Unknown [address] [facility] [place] [address] 06/17/2021 12:00:00 AM EDT eCW1 ([facility]) Outpatient Attender: Noé Sellers MD Main Office 06/06/2021 11:00:00 AM EDT MEDENT ([facility]) (PT/INR TV) Telephone Encounter Visit [address] [place] [address] 06/05/2021 12:00:00 AM EDT eCW1 ([facility]) Unknown [address] [facility] [place] [address] 06/03/2021 12:00:00 AM EDT [facility]CW1 [facility] Outpatient Attender: Josselyn GALLEGOP Main Office 0 05/30/2021 11:15:00 AM EDT MEDENT ([facility]) Office Visit, Est Pt., Level 4 PC [address] [place] [address] 05/24/2021 12:00:00 AM EDT eCW1 ([facility]) Unknown [address] [facility] [address] 05/09/2021 12:00:00 AM EDT eCW1 [facility] Office Visit, Est Pt., Level 3 PC [address] [place] [address] 04/15/2021 12:00:00 AM EDT eCW1 ([facility]) Unknown [address] [facility] [address] 04/10/2021 12:00:00 AM EDT eCW1 [facility] Unknown [address] [facility] [address] 04/10/2021 12:00:00 AM EDT eCW1 [facility] Unknown [address] [facility] [address] 03/29/2021 12:00:00 AM EDT eCW1 ([facility] Office Visit, Est Pt., Level 4 PC [address] [place] [address] 03/12/2021 12:00:00 AM EDT eCW1 ([facility]) Unknown [address] [facility] [address] 03/05/2021 12:00:00 AM EDT eCW1 ([facility] Unknown [address] [place] [address] 03/05/2021 12:00:00 AM EDT eCW1 [facility]) Unknown [address] [facility] [place] [address] 03/05/2021 12:00:00 AM EDT eCW1 ([facility]) Unknown [address] [facility] [place] [address] 02/05/2021 12:00:00 AM EDT eCW1 ([facility]) Unknown [address] [facility] [place] [address] 01/24/2021 12:00:00 AM EDT eCW1 ([facility]) Unknown [address] [facility] [place] [address] 01/23/2021 12:00:00 AM EDT eCW1 ([facility]) Office Visit, Est Pt., Level 4 PC [address] [place] [address] 01/22/2021 12:00:00 AM EDT eCW1 ([facility]) Unknown [address] [facility] [place] [address] 01/11/2021 12:00:00 AM EST eCW1 ([facility]) Unknown [address] [facility] [address] 01/07/2021 12:00:00 AM EST eCW1 ([facility]) Unknown [address] [facility] [place] [address] 01/04/2021 12:00:00 AM EST eCW1 ([facility]) Unknown [address] [facility] [address] 01/02/2021 12:00:00 AM EST eCW1 ([facility]) Unknown [address] [facility] [place] [address] 01/01/2021 12:00:00 AM EST eCW1 ([facility]) Unknown [address] [facility] [place] [address] 12/31/2020 12:00:00 AM EST eCW1 ([facility]) Unknown [address] [facility] [place] [address] 12/24/2020 12:00:00 AM EST eCW1 ([facility]) Unknown [address] [facility] [place] [address] 12/17/2020 12:00:00 AM EST eCW1 ([facility]) Unknown [address] [facility] [place] [address] 12/07/2020 12:00:00 AM EST eCW1 ([facility]) Unknown [address] [facility] [place] [address] 11/30/2020 12:00:00 AM EST eCW1 ([facility]) Unknown [address] [facility] [place] [address] 11/23/2020 12:00:00 AM EST eCW1 ([facility]) Unknown [address] [facility] [place] [address] 11/14/2020 12:00:00 AM EST eCW1 ([facility]) Unknown [address] [facility] [place] [address] 11/13/2020 12:00:00 AM EST eCW1 ([facility]) Unknown [address] [facility] [place] [address] 11/09/2020 12:00:00 AM EST eCW1 ([facility]) Unknown [address] [facility] [place] [address] 11/08/2020 12:00:00 AM EST eCW1 ([facility]) Office Visit, Est Pt., Level 4 PC [address] [place] [address] 11/07/2020 12:00:00 AM EST eCW1 ([facility]) Unknown [address] [facility] [place] [address] 10/22/2020 12:00:00 AM EST eCW1 ([facility]) Unknown [address] [facility] [place] [address] 10/12/2020 12:00:00 AM EST eCW1 ([facility]) Unknown [address] [facility] [place] [address] 10/12/2020 12:00:00 AM EST eCW1 ([facility]) Unknown [address] [facility] [place] [address] 10/09/2020 12:00:00 AM EST eCW1 ([facility]) Unknown [address] [facility] [place] [address] 10/08/2020 12:00:00 AM EST eCW1 ([facility]) Unknown [address] [facility] [place] [address] 10/08/2020 12:00:00 AM EST eCW1 ([facility]) Unknown [address] [facility] [place] [address] 10/05/2020 12:00:00 AM EST eCW1 ([facility]) Unknown [address] [facility] [place] [address] 10/04/2020 12:00:00 AM EST eCW1 ([facility]) Unknown [address] [facility] [place] [address] 09/24/2020 12:00:00 AM EST [facility]CW1 [facility] [place] [address] [facility] [place] [address] 09/21/2020 12:00:00 AM EST eCW1 ([facility]) Unknown [address] [facility] [place] [address] 09/19/2020 12:00:00 AM EST eCW1 ([facility]) Office Visit, Est Pt., Level 4 PC [address] [place] [address] 09/17/2020 12:00:00 AM EST eCW1 ([facility]) Unknown [address] [facility] [place] [address] 09/11/2020 12:00:00 AM EST eCW1 ([facility]) Unknown [address] [facility] [place] [address] 08/22/2020 12:00:00 AM EDT eCW1 ([facility]) Unknown [address] [facility] [place] [address] 08/21/2020 12:00:00 AM EDT [facility] [place] [address] [facility] [place] [address] 08/21/2020 12:00:00 AM EDT eCW1 ([facility]) Office Visit, Est Pt., Level 4 PC [address] [place] [address] 08/20/2020 12:00:00 AM EDT eCW1 ([facility]) Unknown [address] [facility] [place] [address] 08/17/2020 12:00:00 AM EDT eCW1 [facility] Unknown [address] [facility] [place] [address] 08/15/2020 12:00:00 AM EDT eCW1 [facility]) Unknown [address] [facility] [place] [address] 08/15/2020 12:00:00 AM EDT eCW1 ([facility]) Unknown [address] [facility] [place] [address] 08/13/2020 12:00:00 AM EDT eCW1 [facility]) [place] [address] [facility] [place] [address] 08/08/2020 12:00:00 AM EDT eCW1 ([facility]) Unknown [address] [facility] [place] [address] 08/06/2020 12:00:00 AM EDT eCW1 ([facility]) Unknown [address] [facility] [place] [address] 08/02/2020 12:00:00 AM EDT eCW1 [facility]) Immunizations Vaccine Date Status Description Data Source(s) COVID-19 VACCINE Moderna 04/24/2021 12:00:00 AM EDT completed [facility] Vaccine Series Complete: YESThis Data wa s Submitted to [facility] Via [employer]. COVID-19 VACCINE Moderna 03/21/2021 12:00:00 AM EDT completed [facility] Vaccine Series Complete: NOThis Data was Submitted to [facility] Via [employer]. INFLUENZA VIRUS VACCINE QUADRIVAL [id number](6 MOS AND UP)/PF 08/16/2020 12:00:00 AM EDT completed [facility] Medications Medication Brand Name Start Date Product Form Dose Route Admi nistrative Instructions Pharmacy Instructions Status Indications Reaction Description Data Source(s) Zolpidem tartrate 5 MG Oral Tablet [Ambien] Ambien 5 MG Ambi en 5 MG 09/03/2021 12:00:00 AM EDT 1.0 {tablet_at_bedtime} active Ambien 5 MG eCW1 ([facility]) Zolpidem tartrate 5 MG Oral Tablet [Ambien] Ambien 5 MG Ambi en 5 MG 09/03/2021 12:00:00 AM EDT 1.0 {tablet_at_bedtime} active Ambien 5 MG eCW1 ([facility]) atorvastatin 80 MG Oral Tablet Atorvastatin Calcium 80 MG Atorvastatin Calcium 80 MG 08/28/2021 12:00:00 AM EDT 1.0 {tablet} activ e Atorvastatin Calcium 80 MG eCW1 ([facility]) atorvastatin 80 MG Oral Tablet Atorvastatin Calcium 80 MG Atorvastatin Calcium 80 MG 08/28/2021 12:00:00 AM EDT 1.0 {tablet} activ e Atorvastatin Calcium 80 MG eCW1 ([facility]) atorvastatin 80 MG Oral Tablet Atorvastatin Calcium 80 MG Atorvastatin Calcium 80 MG 08/28/2021 12:00:00 AM EDT 1.0 {tablet} activ e Atorvastatin Calcium 80 MG eCW1 ([facility]) atorvastatin 80 MG Oral Tablet Atorvastatin Calcium 80 MG Atorvastatin Calcium 80 MG 08/28/2021 12:00:00 AM EDT 1.0 {tablet} activ e Atorvastatin Calcium 80 MG eCW1 ([facility]) atorvastatin 80 MG Oral Tablet Atorvastatin Calcium 80 MG Atorvastatin Calcium 80 MG 08/28/2021 12:00:00 AM EDT 1.0 {tablet} activ e Atorvastatin Calcium 80 MG eCW1 ([facility]) Zolpidem tartrate 5 MG Oral Tablet [Ambien] Ambien 5 MG Ambi en 5 MG 08/06/2021 12:00:00 AM EDT 1.0 {tablet_at_bedtime} active Ambien 5 MG eCW1 ([facility]) Zolpidem tartrate 5 MG Oral Tablet [Ambien] Ambien 5 MG Ambi en 5 MG 08/06/2021 12:00:00 AM EDT 1.0 {tablet_at_bedtime} active Ambien 5 MG eCW1 ([facility]) Zolpidem tartrate 5 MG Oral Tablet [Ambien] Ambien 5 MG Ambi en 5 MG 08/06/2021 12:00:00 AM EDT 1.0 {tablet_at_bedtime} active Ambien 5 MG eCW1 ([facility]) Zolpidem tartrate 5 MG Oral Tablet [Ambien] Ambien 5 MG Ambi en 5 MG 08/06/2021 12:00:00 AM EDT 1.0 {tablet_at_bedtime} active Ambien 5 MG eCW1 ([facility]) Zolpidem tartrate 5 MG Oral Tablet [Ambien] Ambien 5 MG Ambi en 5 MG 08/06/2021 12:00:00 AM EDT 1.0 {tablet_at_bedtime} active Ambien 5 MG eCW1 ([facility]) Suprep Bowel Prep Kit Suprep Bowel Prep Kit 07/24/2021 12:00:00 AM EDT active MEDENT ([facility]) Zolpidem tartrate 5 MG Oral Tablet [Ambien] Ambien 5 MG Ambi en 5 MG 07/05/2021 12:00:00 AM EDT 1.0 {tablet_at_bedtime} active Ambien 5 MG eCW1 ([facility]) Zolpidem tartrate 5 MG Oral Tablet [Ambien] Ambien 5 MG Ambi en 5 MG 07/05/2021 12:00:00 AM EDT 1.0 {tablet_at_bedtime} active Ambien 5 MG eCW1 ([facility]) Zolpidem tartrate 5 MG Oral Tablet [Ambien] Ambien 5 MG Ambi en 5 MG 06/03/2021 12:00:00 AM EDT 1.0 {tablet_at_bedtime} active Ambien 5 MG eCW1 ([facility]) Zolpidem tartrate 5 MG Oral Tablet [Ambien] Ambien 5 MG Ambi en 5 MG 06/03/2021 12:00:00 AM EDT 1.0 {tablet_at_bedtime} active Ambien 5 MG eCW1 ([facility]) Zolpidem tartrate 5 MG Oral Tablet [Ambien] Ambien 5 MG Ambi en 5 MG 06/03/2021 12:00:00 AM EDT 1.0 {tablet_at_bedtime} active Ambien 5 MG eCW1 ([facility]) Zolpidem tartrate 5 MG Oral Tablet [Ambien] Ambien 5 MG Ambi en 5 MG 06/03/2021 12:00:00 AM EDT 1.0 {tablet_at_bedtime} active Ambien 5 MG eCW1 ([facility]) Hydroxyzine Hydrochloride 10 MG Oral Tablet Hydroxyzine HCL 05/30/2021 12:00:00 AM EDT ORAL active [facility] ([facility]) tramadol hydrochloride 50 MG Oral Tablet traMADol HCl 50 MG traMADol HCl 50 MG 04/10/2021 12:00:00 AM EDT 1.0 {tablet_as_needed} active traMADol HCl 50 MG eCW1 ([facility]) tramadol hydrochloride 50 MG Oral Tablet traMADol HCl 50 MG traMADol HCl 50 MG 04/10/2021 12:00:00 AM EDT 1.0 {tablet_as_needed} active traMADol HCl 50 MG eCW1 ([facility]) tramadol hydrochloride 50 MG Oral Tablet traMADol HCl 50 MG traMADol HCl 50 MG 04/10/2021 12:00:00 AM EDT 1.0 {tablet_as_needed} active traMADol HCl 50 MG eCW1 ([facility]) tramadol hydrochloride 50 MG Oral Tablet traMADol HCl 50 MG traMADol HCl 50 MG 04/10/2021 12:00:00 AM EDT 1.0 {tablet_as_needed} active traMADol HCl 50 MG eCW1 ([facility]) tramadol hydrochloride 50 MG Oral Tablet traMADol HCl 50 MG traMADol HCl 50 MG 04/10/2021 12:00:00 AM EDT 1.0 {tablet_as_needed} active traMADol HCl 50 MG eCW1 ([facility]) tramadol hydrochloride 50 MG Oral Tablet traMADol HCl 50 MG traMADol HCl 50 MG 04/10/2021 12:00:00 AM EDT 1.0 {tablet_as_needed} active traMADol HCl 50 MG eCW1 ([facility]) tramadol hydrochloride 50 MG Oral Tablet traMADol HCl 50 MG traMADol HCl 50 MG 04/10/2021 12:00:00 AM EDT 1.0 {tablet_as_needed} active traMADol HCl 50 MG eCW1 ([facility]) tramadol hydrochloride 50 MG Oral Tablet traMADol HCl 50 MG traMADol HCl 50 MG 04/10/2021 12:00:00 AM EDT 1.0 {tablet_as_needed} active traMADol HCl 50 MG eCW1 ([facility]) tramadol hydrochloride 50 MG Oral Tablet traMADol HCl 50 MG traMADol HCl 50 MG 04/10/2021 12:00:00 AM EDT 1.0 {tablet_as_needed} active traMADol HCl 50 MG eCW1 ([facility]) tramadol hydrochloride 50 MG Oral Tablet traMADol HCl 50 MG traMADol HCl 50 MG 04/10/2021 12:00:00 AM EDT 1.0 {tablet_as_needed} active traMADol HCl 50 MG eCW1 ([facility]) tramadol hydrochloride 50 MG Oral Tablet traMADol HCl 50 MG traMADol HCl 50 MG 04/10/2021 12:00:00 AM EDT 1.0 {tablet_as_needed} active traMADol HCl 50 MG eCW1 ([facility]) tramadol hydrochloride 50 MG Oral Tablet traMADol HCl 50 MG traMADol HCl 50 MG 04/10/2021 12:00:00 AM EDT 1.0 {tablet_as_needed} active traMADol HCl 50 MG eCW1 ([facility]) tramadol hydrochloride 50 MG Oral Tablet traMADol HCl 50 MG traMADol HCl 50 MG 04/10/2021 12:00:00 AM EDT 1.0 {tablet_as_needed} active traMADol HCl 50 MG eCW1 ([facility]) tramadol hydrochloride 50 MG Oral Tablet traMADol HCl 50 MG traMADol HCl 50 MG 04/10/2021 12:00:00 AM EDT 1.0 {tablet_as_needed} active traMADol HCl 50 MG eCW1 ([facility]) tramadol hydrochloride 50 MG Oral Tablet traMADol HCl 50 MG traMADol HCl 50 MG 04/10/2021 12:00:00 AM EDT 1.0 {tablet_as_needed} active traMADol HCl 50 MG eCW1 ([facility]) tramadol hydrochloride 50 MG Oral Tablet traMADol HCl 50 MG traMADol HCl 50 MG 04/10/2021 12:00:00 AM EDT 1.0 {tablet_as_needed} active traMADol HCl 50 MG eCW1 ([facility]) tramadol hydrochloride 50 MG Oral Tablet traMADol HCl 50 MG traMADol HCl 50 MG 04/10/2021 12:00:00 AM EDT 1.0 {tablet_as_needed} active traMADol HCl 50 MG eCW1 ([facility]) tramadol hydrochloride 50 MG Oral Tablet traMADol HCl 50 MG traMADol HCl 50 MG 04/10/2021 12:00:00 AM EDT 1.0 {tablet_as_needed} active traMADol HCl 50 MG eCW1 ([facility]) Aspirin 81 MG Delayed Release Oral Tablet Aspirin 81 MG 03/12/2021 12:00:00 AM EDT 1.0 {tablet} active Aspirin 81 MG eCW1 ([facility]) Aspirin 81 MG Delayed Release Oral Tablet Aspirin 81 MG 03/12/2021 12:00:00 AM EDT 1.0 {tablet} active Aspirin 81 MG eCW1 ([facility]) Aspirin 81 MG Delayed Release Oral Tablet Aspirin 81 MG 03/12/2021 12:00:00 AM EDT 1.0 {tablet} active Aspirin 81 MG eCW1 ([facility]) Aspirin 81 MG Delayed Release Oral Tablet Aspirin 81 MG 03/12/2021 12:00:00 AM EDT 1.0 {tablet} active Aspirin 81 MG eCW1 ([facility]) Aspirin 81 MG Delayed Release Oral Tablet Aspirin 81 MG 03/12/2021 12:00:00 AM EDT 1.0 {tablet} active Aspirin 81 MG eCW1 ([facility]) Zolpidem tartrate 5 MG Oral Tablet [Ambien] Ambien 5 MG Ambi en 5 MG 03/12/2021 12:00:00 AM EDT 1.0 {tablet_at_bedtime} active Ambien 5 MG eCW1 ([facility]) Aspirin 81 MG Delayed Release Oral Tablet Aspirin 81 MG 03/12/2021 12:00:00 AM EDT 1.0 {tablet} active Aspirin 81 MG eCW1 ([facility]) Aspirin 81 MG Delayed Release Oral Tablet Aspirin 81 MG 03/12/2021 12:00:00 AM EDT 1.0 {tablet} active Aspirin 81 MG eCW1 ([facility]) Aspirin 81 MG Delayed Release Oral Tablet Aspirin 81 MG 03/12/2021 12:00:00 AM EDT 1.0 {tablet} active Aspirin 81 MG eCW1 ([facility]) Aspirin 81 MG Delayed Release Oral Tablet Aspirin 81 MG 03/12/2021 12:00:00 AM EDT 1.0 {tablet} active Aspirin 81 MG eCW1 ([facility]) Aspirin 81 MG Delayed Release Oral Tablet Aspirin 81 MG 03/12/2021 12:00:00 AM EDT 1.0 {tablet} active Aspirin 81 MG eCW1 ([facility]) Zolpidem tartrate 5 MG Oral Tablet [Ambien] Ambien 5 MG Ambi en 5 MG 03/12/2021 12:00:00 AM EDT 1.0 {tablet_at_bedtime} active Ambien 5 MG eCW1 ([facility]) Zolpidem tartrate 5 MG Oral Tablet [Ambien] Ambien 5 MG Ambi en 5 MG 03/12/2021 12:00:00 AM EDT 1.0 {tablet_at_bedtime} active Ambien 5 MG eCW1 ([facility]) Aspirin 81 MG Delayed Release Oral Tablet Aspirin 81 MG 03/12/2021 12:00:00 AM EDT 1.0 {tablet} active Aspirin 81 MG eCW1 ([facility]) Aspirin 81 MG Delayed Release Oral Tablet Aspirin 81 MG 03/12/2021 12:00:00 AM EDT 1.0 {tablet} active Aspirin 81 MG eCW1 ([facility]) Aspirin 81 MG Delayed Release Oral Tablet Aspirin 81 MG 03/12/2021 12:00:00 AM EDT 1.0 {tablet} active Aspirin 81 MG eCW1 ([facility]) Zolpidem tartrate 5 MG Oral Tablet [Ambien] Ambien 5 MG Ambi en 5 MG 03/12/2021 12:00:00 AM EDT 1.0 {tablet_at_bedtime} active Ambien 5 MG eCW1 ([facility]) Aspirin 81 MG Delayed Release Oral Tablet Aspirin 81 MG 03/12/2021 12:00:00 AM EDT 1.0 {tablet} active Aspirin 81 MG eCW1 ([facility]) Aspirin 81 MG Delayed Release Oral Tablet Aspirin 81 MG 03/12/2021 12:00:00 AM EDT 1.0 {tablet} active Aspirin 81 MG eCW1 ([facility]) Aspirin 81 MG Delayed Release Oral Tablet Aspirin 81 MG 03/12/2021 12:00:00 AM EDT 1.0 {tablet} active Aspirin 81 MG eCW1 ([facility]) Aspirin 81 MG Delayed Release Oral Tablet Aspirin 81 MG 03/12/2021 12:00:00 AM EDT 1.0 {tablet} active Aspirin 81 MG eCW1 ([facility]) Zolpidem tartrate 5 MG Oral Tablet [Ambien] Ambien 5 MG Ambi en 5 MG 03/12/2021 12:00:00 AM EDT 1.0 {tablet_at_bedtime} active Ambien 5 MG eCW1 ([facility]) Aspirin 81 MG Delayed Release Oral Tablet Aspirin 81 MG 03/12/2021 12:00:00 AM EDT 1.0 {tablet} active Aspirin 81 MG eCW1 ([facility]) Aspirin 81 MG Delayed Release Oral Tablet Aspirin 81 MG 03/12/2021 12:00:00 AM EDT 1.0 {tablet} active Aspirin 81 MG eCW1 ([facility]) Zolpidem tartrate 5 MG Oral Tablet [Ambien] Ambien 5 MG Ambi en 5 MG 03/12/2021 12:00:00 AM EDT 1.0 {tablet_at_bedtime} active Ambien 5 MG eCW1 ([facility]) Zolpidem tartrate 5 MG Oral Tablet [Ambien] Ambien 5 MG Ambi en 5 MG 03/12/2021 12:00:00 AM EDT 1.0 {tablet_at_bedtime} active Ambien 5 MG eCW1 ([facility]) Aspirin 81 MG Delayed Release Oral Tablet Aspirin 81 MG 03/12/2021 12:00:00 AM EDT 1.0 {tablet} active Aspirin 81 MG eCW1 ([facility]) 8 HR Acetaminophen 650 MG Extended Release Oral Tablet Acetaminophen ER 650 MG Acetaminophen ER 650 MG 01/24/2021 12:00:00 AM EDT active Acetaminophen ER 650 MG eCW1 ([facility]) 8 HR Acetaminophen 650 MG Extended Release Oral Tablet Acetaminophen ER 650 MG Acetaminophen ER 650 MG 01/24/2021 12:00:00 AM EDT active Acetaminophen ER 650 MG eCW1 ([facility]) 8 HR Acetaminophen 650 MG Extended Release Oral Tablet Acetaminophen ER 650 MG Acetaminophen ER 650 MG 01/24/2021 12:00:00 AM EDT active Acetaminophen ER 650 MG eCW1 ([facility]) 8 HR Acetaminophen 650 MG Extended Release Oral Tablet Acetaminophen ER 650 MG Acetaminophen ER 650 MG 01/24/2021 12:00:00 AM EDT active Acetaminophen ER 650 MG eCW1 ([facility]) 8 HR Acetaminophen 650 MG Extended Release Oral Tablet Acetaminophen ER 650 MG Acetaminophen ER 650 MG 01/24/2021 12:00:00 AM EDT active Acetaminophen ER 650 MG eCW1 ([facility]) 8 HR Acetaminophen 650 MG Extended Release Oral Tablet Acetaminophen ER 650 MG Acetaminophen ER 650 MG 01/24/2021 12:00:00 AM EDT active Acetaminophen ER 650 MG eCW1 ([facility]) Acetaminophen 325 MG Oral Tablet [Tylenol] Tylenol 325 MG Ty lenol 325 MG 01/23/2021 12:00:00 AM EDT active Tylenol 325 MG eCW1 ([facility]) Acetaminophen 325 MG Oral Tablet [Tylenol] Tylenol 325 MG Ty lenol 325 MG 01/23/2021 12:00:00 AM EDT active Tylenol 325 MG eCW1 ([facility]) Acetaminophen 325 MG Oral Tablet [Tylenol] Tylenol 325 MG Ty lenol 325 MG 01/23/2021 12:00:00 AM EDT active Tylenol 325 MG eCW1 ([facility]) Acetaminophen 325 MG Oral Tablet [Tylenol] Tylenol 325 MG Ty lenol 325 MG 01/23/2021 12:00:00 AM EDT active Tylenol 325 MG eCW1 ([facility]) Acetaminophen 325 MG Oral Tablet [Tylenol] Tylenol 325 MG Ty lenol 325 MG 01/23/2021 12:00:00 AM EDT active Tylenol 325 MG eCW1 ([facility]) Acetaminophen 325 MG Oral Tablet [Tylenol] Tylenol 325 MG Ty lenol 325 MG 01/23/2021 12:00:00 AM EDT active Tylenol 325 MG eCW1 ([facility]) Acetaminophen 325 MG Oral Tablet [Tylenol] Tylenol 325 MG Ty lenol 325 MG 01/23/2021 12:00:00 AM EDT active Tylenol 325 MG eCW1 ([facility]) Trazodone Hydrochloride 50 MG Oral Tablet TraZODone HC l 50 MG TraZODone HCl 50 MG 01/22/2021 12:00:00 AM EDT 1.0 {tablet_at_bedtime_as_needed} active TraZODone HCl 50 MG eCW1 ([facility]) Trazodone Hydrochloride 50 MG Oral Tablet TraZODone HC l 50 MG TraZODone HCl 50 MG 01/22/2021 12:00:00 AM EDT 1.0 {tablet_at_bedtime_as_needed} active TraZODone HCl 50 MG eCW1 ([facility]) Trazodone Hydrochloride 50 MG Oral Tablet TraZODone HC l 50 MG TraZODone HCl 50 MG 01/22/2021 12:00:00 AM EDT 1.0 {tablet_at_bedtime_as_needed} active TraZODone HCl 50 MG eCW1 ([facility]) Trazodone Hydrochloride 50 MG Oral Tablet TraZODone HC l 50 MG TraZODone HCl 50 MG 01/22/2021 12:00:00 AM EDT 1.0 {tablet_at_bedtime_as_needed} active TraZODone HCl 50 MG eCW1 ([facility]) Trazodone Hydrochloride 50 MG Oral Tablet TraZODone HC l 50 MG TraZODone HCl 50 MG 01/22/2021 12:00:00 AM EDT 1.0 {tablet_at_bedtime_as_needed} active TraZODone HCl 50 MG eCW1 ([facility]) Trazodone Hydrochloride 50 MG Oral Tablet TraZODone HC l 50 MG TraZODone HCl 50 MG 01/22/2021 12:00:00 AM EDT 1.0 {tablet_at_bedtime_as_needed} active TraZODone HCl 50 MG eCW1 ([facility]) Trazodone Hydrochloride 50 MG Oral Tablet TraZODone HC l 50 MG TraZODone HCl 50 MG 01/22/2021 12:00:00 AM EDT 1.0 {tablet_at_bedtime_as_needed} active TraZODone HCl 50 MG eCW1 ([facility]) POLYETHYLENE GLYCOL 3350 142 MG/ML Oral Solution [Celeste lax] MiraLax 17 GM/SCOOP MiraLax 17 GM/SCOOP 01/01/2021 12:00:00 AM EST active MiraLax 17 GM/SCOOP eCW1 ([facility]) POLYETHYLENE GLYCOL 3350 142 MG/ML Oral Solution [Celeste lax] MiraLax 17 GM/SCOOP MiraLax 17 GM/SCOOP 01/01/2021 12:00:00 AM EST active MiraLax 17 GM/SCOOP eCW1 ([facility]) POLYETHYLENE GLYCOL 3350 142 MG/ML Oral Solution [Celeste lax] MiraLax 17 GM/SCOOP MiraLax 17 GM/SCOOP 01/01/2021 12:00:00 AM EST active MiraLax 17 GM/SCOOP eCW1 ([facility]) POLYETHYLENE GLYCOL 3350 142 MG/ML Oral Solution [Celeste lax] MiraLax 17 GM/SCOOP MiraLax 17 GM/SCOOP 01/01/2021 12:00:00 AM EST active MiraLax 17 GM/SCOOP eCW1 ([facility]) POLYETHYLENE GLYCOL 3350 142 MG/ML Oral Solution [Celeste lax] MiraLax 17 GM/SCOOP MiraLax 17 GM/SCOOP 01/01/2021 12:00:00 AM EST active MiraLax 17 GM/SCOOP eCW1 ([facility]) POLYETHYLENE GLYCOL 3350 142 MG/ML Oral Solution [Celeste lax] MiraLax 17 GM/SCOOP MiraLax 17 GM/SCOOP 01/01/2021 12:00:00 AM EST active MiraLax 17 GM/SCOOP eCW1 ([facility]) POLYETHYLENE GLYCOL 3350 142 MG/ML Oral Solution [Celeste lax] MiraLax 17 GM/SCOOP MiraLax 17 GM/SCOOP 01/01/2021 12:00:00 AM EST active MiraLax 17 GM/SCOOP eCW1 ([facility]) POLYETHYLENE GLYCOL 3350 142 MG/ML Oral Solution [Celeste lax] MiraLax 17 GM/SCOOP MiraLax 17 GM/SCOOP 01/01/2021 12:00:00 AM EST active MiraLax 17 GM/SCOOP eCW1 ([facility]) POLYETHYLENE GLYCOL 3350 142 MG/ML Oral Solution [Celeste lax] MiraLax 17 GM/SCOOP MiraLax 17 GM/SCOOP 01/01/2021 12:00:00 AM EST active MiraLax 17 GM/SCOOP eCW1 ([facility]) POLYETHYLENE GLYCOL 3350 142 MG/ML Oral Solution [Celeste lax] MiraLax 17 GM/SCOOP MiraLax 17 GM/SCOOP 01/01/2021 12:00:00 AM EST active MiraLax 17 GM/SCOOP eCW1 ([facility]) POLYETHYLENE GLYCOL 3350 142 MG/ML Oral Solution [Celeste lax] MiraLax 17 GM/SCOOP MiraLax 17 GM/SCOOP 01/01/2021 12:00:00 AM EST active MiraLax 17 GM/SCOOP eCW1 ([facility]) POLYETHYLENE GLYCOL 3350 142 MG/ML Oral Solution [Celeste lax] MiraLax 17 GM/SCOOP MiraLax 17 GM/SCOOP 01/01/2021 12:00:00 AM EST active MiraLax 17 GM/SCOOP eCW1 ([facility]) POLYETHYLENE GLYCOL 3350 142 MG/ML Oral Solution [Celeste lax] MiraLax 17 GM/SCOOP MiraLax 17 GM/SCOOP 01/01/2021 12:00:00 AM EST active MiraLax 17 GM/SCOOP eCW1 ([facility]) POLYETHYLENE GLYCOL 3350 142 MG/ML Oral Solution [Celeste lax] MiraLax 17 GM/SCOOP MiraLax 17 GM/SCOOP 01/01/2021 12:00:00 AM EST active MiraLax 17 GM/SCOOP eCW1 ([facility]) POLYETHYLENE GLYCOL 3350 142 MG/ML Oral Solution [Celeste lax] MiraLax 17 GM/SCOOP MiraLax 17 GM/SCOOP 01/01/2021 12:00:00 AM EST active MiraLax 17 GM/SCOOP eCW1 ([facility]) POLYETHYLENE GLYCOL 3350 142 MG/ML Oral Solution [Celeste lax] MiraLax 17 GM/SCOOP MiraLax 17 GM/SCOOP 01/01/2021 12:00:00 AM EST active MiraLax 17 GM/SCOOP eCW1 ([facility]) POLYETHYLENE GLYCOL 3350 142 MG/ML Oral Solution [Celeste lax] MiraLax 17 GM/SCOOP MiraLax 17 GM/SCOOP 01/01/2021 12:00:00 AM EST active MiraLax 17 GM/SCOOP eCW1 ([facility]) POLYETHYLENE GLYCOL 3350 142 MG/ML Oral Solution [Celeste lax] MiraLax 17 GM/SCOOP MiraLax 17 GM/SCOOP 01/01/2021 12:00:00 AM EST active MiraLax 17 GM/SCOOP eCW1 ([facility]) POLYETHYLENE GLYCOL 3350 142 MG/ML Oral Solution [Celeste lax] MiraLax 17 GM/SCOOP MiraLax 17 GM/SCOOP 01/01/2021 12:00:00 AM EST active MiraLax 17 GM/SCOOP eCW1 ([facility]) POLYETHYLENE GLYCOL 3350 142 MG/ML Oral Solution [Celeste lax] MiraLax 17 GM/SCOOP MiraLax 17 GM/SCOOP 01/01/2021 12:00:00 AM EST active MiraLax 17 GM/SCOOP eCW1 ([facility]) POLYETHYLENE GLYCOL 3350 142 MG/ML Oral Solution [Celeste lax] MiraLax 17 GM/SCOOP MiraLax 17 GM/SCOOP 01/01/2021 12:00:00 AM EST active MiraLax 17 GM/SCOOP eCW1 ([facility]) POLYETHYLENE GLYCOL 3350 142 MG/ML Oral Solution [Celeste lax] MiraLax 17 GM/SCOOP MiraLax 17 GM/SCOOP 01/01/2021 12:00:00 AM EST active MiraLax 17 GM/SCOOP eCW1 ([facility]) POLYETHYLENE GLYCOL 3350 142 MG/ML Oral Solution [Celeste lax] MiraLax 17 GM/SCOOP MiraLax 17 GM/SCOOP 01/01/2021 12:00:00 AM EST active MiraLax 17 GM/SCOOP eCW1 ([facility]) POLYETHYLENE GLYCOL 3350 142 MG/ML Oral Solution [Celeste lax] MiraLax 17 GM/SCOOP MiraLax 17 GM/SCOOP 01/01/2021 12:00:00 AM EST active MiraLax 17 GM/SCOOP eCW1 ([facility]) POLYETHYLENE GLYCOL 3350 142 MG/ML Oral Solution [Celeste lax] MiraLax 17 GM/SCOOP MiraLax 17 GM/SCOOP 01/01/2021 12:00:00 AM EST active MiraLax 17 GM/SCOOP eCW1 ([facility]) POLYETHYLENE GLYCOL 3350 142 MG/ML Oral Solution [Celeste lax] MiraLax 17 GM/SCOOP MiraLax 17 GM/SCOOP 01/01/2021 12:00:00 AM EST active MiraLax 17 GM/SCOOP eCW1 ([facility]) May Have - UNK 12/24/2020 12:00:00 AM EST active May Have - eCW1 ([facility]) May Have - UNK 12/24/2020 12:00:00 AM EST active May Have - eCW1 ([facility]) May Have - UNK 12/24/2020 12:00:00 AM EST active May Have - eCW1 ([facility]) May Have - UNK 12/24/2020 12:00:00 AM EST active May Have - eCW1 ([facility]) May Have - UNK 12/24/2020 12:00:00 AM EST active May Have - eCW1 ([facility]) May Have - UNK 12/24/2020 12:00:00 AM EST active May Have - eCW1 ([facility]) May Have - UNK 12/24/2020 12:00:00 AM EST active May Have - eCW1 ([facility]) May Have 1 UNK 11/30/2020 12:00:00 AM EST active May Have 1 eCW1 ([facility]) May Have 1 UNK 11/30/2020 12:00:00 AM EST active May Have 1 eCW1 ([facility]) May Have 1 UNK 11/30/2020 12:00:00 AM EST active May Have 1 eCW1 ([facility]) May Have 1 UNK 11/30/2020 12:00:00 AM EST active May Have 1 eCW1 ([facility]) May Have 1 UNK 11/30/2020 12:00:00 AM EST active May Have 1 eCW1 ([facility]) May Have 1 UNK 11/30/2020 12:00:00 AM EST active May Have 1 eCW1 ([facility]) May Have 1 UNK 11/30/2020 12:00:00 AM EST active May Have 1 eCW1 ([facility]) May Have 1 UNK 11/30/2020 12:00:00 AM EST active May Have 1 eCW1 ([facility]) May Have 1 UNK 11/30/2020 12:00:00 AM EST active May Have 1 eCW1 ([facility]) May Have 1 UNK 11/30/2020 12:00:00 AM EST active May Have 1 eCW1 ([facility]) BD AutoShield Duo 30G X 5 MM BD AutoShield Duo 30G X 5 MM 12:00:00 AM EST active BD AutoShield Duo 30G X 5 MM eCW1 ([facility]) BD AutoShield Duo 30G X 5 MM BD AutoShield Duo 30G X 5 MM 12:00:00 AM EST active BD AutoShield Duo 30G X 5 MM eCW1 ([facility]) BD AutoShield Duo 30G X 5 MM BD AutoShield Duo 30G X 5 MM 12:00:00 AM EST active BD AutoShield Duo 30G X 5 MM eCW1 ([facility]) BD AutoShield Duo 30G X 5 MM BD AutoShield Duo 30G X 5 MM 12:00:00 AM EST active BD AutoShield Duo 30G X 5 MM eCW1 ([facility]) BD AutoShield Duo 30G X 5 MM BD AutoShield Duo 30G X 5 MM 12:00:00 AM EST active BD AutoShield Duo 30G X 5 MM eCW1 ([facility]) BD AutoShield Duo 30G X 5 MM BD AutoShield Duo 30G X 5 MM 12:00:00 AM EST active BD AutoShield Duo 30G X 5 MM eCW1 ([facility]) BD AutoShield Duo 30G X 5 MM BD AutoShield Duo 30G X 5 MM 12:00:00 AM EST active BD AutoShield Duo 30G X 5 MM eCW1 ([facility]) BD AutoShield Duo 30G X 5 MM BD AutoShield Duo 30G X 5 MM 12:00:00 AM EST active BD AutoShield Duo 30G X 5 MM eCW1 ([facility]) BD AutoShield Duo 30G X 5 MM BD AutoShield Duo 30G X 5 MM 12:00:00 AM EST active BD AutoShield Duo 30G X 5 MM eCW1 ([facility]) BD AutoShield Duo 30G X 5 MM BD AutoShield Duo 30G X 5 MM 12:00:00 AM EST active BD AutoShield Duo 30G X 5 MM eCW1 ([facility]) BD AutoShield Duo 30G X 5 MM BD AutoShield Duo 30G X 5 MM 12:00:00 AM EST active BD AutoShield Duo 30G X 5 MM eCW1 ([facility]) BD AutoShield Duo 30G X 5 MM BD AutoShield Duo 30G X 5 MM 12:00:00 AM EST active BD AutoShield Duo 30G X 5 MM eCW1 ([facility]) BD AutoShield Duo 30G X 5 MM BD AutoShield Duo 30G X 5 MM 12:00:00 AM EST active BD AutoShield Duo 30G X 5 MM eCW1 ([facility]) Warfarin Sodium 5 MG Oral Tablet Warfarin Sodium 5 MG 2020 12:00:00 AM EST 1.0 {tablet} active Warfarin So dium 5 MG eCW1 ([facility]) Warfarin Sodium 5 MG Oral Tablet Warfarin Sodium 5 MG 2020 12:00:00 AM EST 1.0 {tablet} active Warfarin So dium 5 MG eCW1 ([facility]) Warfarin Sodium 5 MG Oral Tablet Warfarin Sodium 5 MG 2020 12:00:00 AM EST 1.0 {tablet} active Warfarin So dium 5 MG eCW1 ([facility]) Warfarin Sodium 5 MG Oral Tablet Warfarin Sodium 5 MG 2020 12:00:00 AM EST 1.0 {tablet} active Warfarin So dium 5 MG eCW1 ([facility]) Warfarin Sodium 5 MG Oral Tablet Warfarin Sodium 5 MG 2020 12:00:00 AM EST 1.0 {tablet} active Warfarin So dium 5 MG eCW1 ([facility]) Warfarin Sodium 5 MG Oral Tablet Warfarin Sodium 5 MG 2020 12:00:00 AM EST 1.0 {tablet} active Warfarin So dium 5 MG eCW1 ([facility]) Warfarin Sodium 5 MG Oral Tablet Warfarin Sodium 5 MG 2020 12:00:00 AM EST 1.0 {tablet} active Warfarin So dium 5 MG eCW1 ([facility]) Warfarin Sodium 5 MG Oral Tablet Warfarin Sodium 5 MG 2020 12:00:00 AM EST 1.0 {tablet} active Warfarin So dium 5 MG eCW1 ([facility]) Warfarin Sodium 5 MG Oral Tablet Warfarin Sodium 5 MG 2020 12:00:00 AM EST 1.0 {tablet} active Warfarin So dium 5 MG eCW1 ([facility]) Warfarin Sodium 5 MG Oral Tablet Warfarin Sodium 5 MG 2020 12:00:00 AM EST 1.0 {tablet} active Warfarin So dium 5 MG eCW1 ([facility]) Warfarin Sodium 5 MG Oral Tablet Warfarin Sodium 5 MG 2020 12:00:00 AM EST 1.0 {tablet} active Warfarin So dium 5 MG eCW1 ([facility]) Warfarin Sodium 5 MG Oral Tablet Warfarin Sodium 5 MG 2020 12:00:00 AM EST 1.0 {tablet} active Warfarin So dium 5 MG eCW1 ([facility]) Warfarin Sodium 5 MG Oral Tablet Warfarin Sodium 5 MG 2020 12:00:00 AM EST 1.0 {tablet} active Warfarin So dium 5 MG eCW1 ([facility]) Warfarin Sodium 5 MG Oral Tablet Warfarin Sodium 5 MG 2020 12:00:00 AM EST 1.0 {tablet} active Warfarin So dium 5 MG eCW1 ([facility]) Warfarin Sodium 5 MG Oral Tablet Warfarin Sodium 5 MG 2020 12:00:00 AM EST 1.0 {tablet} active Warfarin So dium 5 MG eCW1 ([facility]) Warfarin Sodium 5 MG Oral Tablet Warfarin Sodium 5 MG 2020 12:00:00 AM EST 1.0 {tablet} active Warfarin So dium 5 MG eCW1 ([facility]) Warfarin Sodium 5 MG Oral Tablet Warfarin Sodium 5 MG 2020 12:00:00 AM EST 1.0 {tablet} active Warfarin So dium 5 MG eCW1 ([facility]) Warfarin Sodium 5 MG Oral Tablet Warfarin Sodium 5 MG 2020 12:00:00 AM EST 1.0 {tablet} active Warfarin So dium 5 MG eCW1 ([facility]) Warfarin Sodium 5 MG Oral Tablet Warfarin Sodium 5 MG 2020 12:00:00 AM EST 1.0 {tablet} active Warfarin So dium 5 MG eCW1 ([facility]) Warfarin Sodium 5 MG Oral Tablet Warfarin Sodium 5 MG 2020 12:00:00 AM EST 1.0 {tablet} active Warfarin So dium 5 MG eCW1 ([facility]) Warfarin Sodium 5 MG Oral Tablet Warfarin Sodium 5 MG 2020 12:00:00 AM EST 1.0 {tablet} active Warfarin So dium 5 MG eCW1 ([facility]) Warfarin Sodium 5 MG Oral Tablet Warfarin Sodium 5 MG 2020 12:00:00 AM EST 1.0 {tablet} active Warfarin So dium 5 MG eCW1 ([facility]) Warfarin Sodium 5 MG Oral Tablet Warfarin Sodium 5 MG 2020 12:00:00 AM EST 1.0 {tablet} active Warfarin So dium 5 MG eCW1 ([facility]) Warfarin Sodium 5 MG Oral Tablet Warfarin Sodium 5 MG 2020 12:00:00 AM EST 1.0 {tablet} active Warfarin So dium 5 MG eCW1 ([facility]) Warfarin Sodium 5 MG Oral Tablet Warfarin Sodium 5 MG 2020 12:00:00 AM EST 1.0 {tablet} active Warfarin So dium 5 MG eCW1 ([facility]) Warfarin Sodium 5 MG Oral Tablet Warfarin Sodium 5 MG 2020 12:00:00 AM EST 1.0 {tablet} active Warfarin So dium 5 MG eCW1 ([facility]) Warfarin Sodium 5 MG Oral Tablet Warfarin Sodium 5 MG 2020 12:00:00 AM EST 1.0 {tablet} active Warfarin So dium 5 MG eCW1 ([facility]) Warfarin Sodium 5 MG Oral Tablet Warfarin Sodium 5 MG 2020 12:00:00 AM EST 1.0 {tablet} active Warfarin So dium 5 MG eCW1 ([facility]) Warfarin Sodium 5 MG Oral Tablet Warfarin Sodium 5 MG 2020 12:00:00 AM EST 1.0 {tablet} active Warfarin So dium 5 MG eCW1 ([facility]) Warfarin Sodium 5 MG Oral Tablet Warfarin Sodium 5 MG 2020 12:00:00 AM EST 1.0 {tablet} active Warfarin So dium 5 MG eCW1 ([facility]) Warfarin Sodium 5 MG Oral Tablet Warfarin Sodium 5 MG 2020 12:00:00 AM EST 1.0 {tablet} active Warfarin So dium 5 MG eCW1 ([facility]) Warfarin Sodium 5 MG Oral Tablet Warfarin Sodium 5 MG 2020 12:00:00 AM EST 1.0 {tablet} active Warfarin So dium 5 MG eCW1 ([facility]) Warfarin Sodium 5 MG Oral Tablet Warfarin Sodium 5 MG 2020 12:00:00 AM EST 1.0 {tablet} active Warfarin So dium 5 MG eCW1 ([facility]) Warfarin Sodium 5 MG Oral Tablet Warfarin Sodium 5 MG 2020 12:00:00 AM EST 1.0 {tablet} active Warfarin So dium 5 MG eCW1 ([facility]) Warfarin Sodium 5 MG Oral Tablet Warfarin Sodium 5 MG 2020 12:00:00 AM EST 1.0 {tablet} active Warfarin So dium 5 MG eCW1 ([facility]) Warfarin Sodium 5 MG Oral Tablet Warfarin Sodium 5 MG 2020 12:00:00 AM EST 1.0 {tablet} active Warfarin So dium 5 MG eCW1 ([facility]) Warfarin Sodium 5 MG Oral Tablet Warfarin Sodium 5 MG 2020 12:00:00 AM EST 1.0 {tablet} active Warfarin So dium 5 MG eCW1 ([facility]) Suprep Bowel Prep Kit Suprep Bowel Prep Kit 11/05/2020 12:00:00 AM EST active [facility] ([facility]) Warfarin Sodium 5 MG Oral Tablet Warfarin Sodium 5 MG 2019 12:00:00 AM EST 1.0 {tablet} active Warfarin So dium 5 MG eCW1 ([facility]) Warfarin Sodium 5 MG Oral Tablet Warfarin Sodium 5 MG 2019 12:00:00 AM EST 1.0 {tablet} active Warfarin So dium 5 MG eCW1 ([facility]) Warfarin Sodium 5 MG Oral Tablet Warfarin Sodium 5 MG 2019 12:00:00 AM EST 1.0 {tablet} active Warfarin So dium 5 MG eCW1 ([facility]) Warfarin Sodium 5 MG Oral Tablet Warfarin Sodium 5 MG 2019 12:00:00 AM EST 1.0 {tablet} active Warfarin So dium 5 MG eCW1 ([facility]) Warfarin Sodium 5 MG Oral Tablet Warfarin Sodium 5 MG 2019 12:00:00 AM EST 1.0 {tablet} active Warfarin So dium 5 MG eCW1 ([facility]) Warfarin Sodium 5 MG Oral Tablet Warfarin Sodium 5 MG 2019 12:00:00 AM EST 1.0 {tablet} active Warfarin So dium 5 MG eCW1 ([facility]) Warfarin Sodium 5 MG Oral Tablet Warfarin Sodium 5 MG 2019 12:00:00 AM EST 1.0 {tablet} active Warfarin So dium 5 MG eCW1 ([facility]) Warfarin Sodium 5 MG Oral Tablet Warfarin Sodium 5 MG 2019 12:00:00 AM EST 1.0 {tablet} active Warfarin So dium 5 MG eCW1 ([facility]) Tylenol Extra Strength 500 MG Tylenol Extra Strength 500 MG 09/19/2020 12:00:00 AM EST 2.0 {tablet} active Tylenol Ext ra Strength 500 MG eCW1 ([facility]) Tylenol Extra Strength 500 MG Tylenol Extra Strength 500 MG 09/19/2020 12:00:00 AM EST 2.0 {tablet} active Tylenol Ext ra Strength 500 MG eCW1 ([facility]) Tylenol Extra Strength 500 MG Tylenol Extra Strength 500 MG 09/19/2020 12:00:00 AM EST 2.0 {tablet} active Tylenol Ext ra Strength 500 MG eCW1 ([facility]) Tylenol Extra Strength 500 MG Tylenol Extra Strength 500 MG 09/19/2020 12:00:00 AM EST 2.0 {tablet} active Tylenol Ext ra Strength 500 MG eCW1 ([facility]) Tylenol Extra Strength 500 MG Tylenol Extra Strength 500 MG 09/19/2020 12:00:00 AM EST 2.0 {tablet} active Tylenol Ext ra Strength 500 MG eCW1 ([facility]) Tylenol Extra Strength 500 MG Tylenol Extra Strength 500 MG 09/19/2020 12:00:00 AM EST 2.0 {tablet} active Tylenol Ext ra Strength 500 MG eCW1 ([facility]) Tylenol Extra Strength 500 MG Tylenol Extra Strength 500 MG 09/19/2020 12:00:00 AM EST 2.0 {tablet} active Tylenol Ext ra Strength 500 MG eCW1 ([facility]) Tylenol Extra Strength 500 MG Tylenol Extra Strength 500 MG 09/19/2020 12:00:00 AM EST 2.0 {tablet} active Tylenol Ext ra Strength 500 MG eCW1 ([facility]) Tylenol Extra Strength 500 MG Tylenol Extra Strength 500 MG 09/19/2020 12:00:00 AM EST 2.0 {tablet} active Tylenol Ext ra Strength 500 MG eCW1 ([facility]) Tylenol Extra Strength 500 MG Tylenol Extra Strength 500 MG 09/19/2020 12:00:00 AM EST 2.0 {tablet} active Tylenol Ext ra Strength 500 MG eCW1 ([facility]) Tylenol Extra Strength 500 MG Tylenol Extra Strength 500 MG 09/19/2020 12:00:00 AM EST 2.0 {tablet} active Tylenol Ext ra Strength 500 MG eCW1 ([facility]) Tylenol Extra Strength 500 MG Tylenol Extra Strength 500 MG 09/19/2020 12:00:00 AM EST 2.0 {tablet} active Tylenol Ext ra Strength 500 MG eCW1 ([facility]) Tylenol Extra Strength 500 MG Tylenol Extra Strength 500 MG 09/19/2020 12:00:00 AM EST 2.0 {tablet} active Tylenol Ext ra Strength 500 MG eCW1 ([facility]) Tylenol Extra Strength 500 MG Tylenol Extra Strength 500 MG 09/19/2020 12:00:00 AM EST 2.0 {tablet} active Tylenol Ext ra Strength 500 MG eCW1 ([facility]) Tylenol Extra Strength 500 MG Tylenol Extra Strength 500 MG 09/19/2020 12:00:00 AM EST 2.0 {tablet} active Tylenol Ext ra Strength 500 MG eCW1 ([facility]) Tylenol Extra Strength 500 MG Tylenol Extra Strength 500 MG 09/19/2020 12:00:00 AM EST 2.0 {tablet} active Tylenol Ext ra Strength 500 MG eCW1 ([facility]) Tylenol Extra Strength 500 MG Tylenol Extra Strength 500 MG 09/19/2020 12:00:00 AM EST 2.0 {tablet} active Tylenol Ext ra Strength 500 MG eCW1 ([facility]) Tylenol Extra Strength 500 MG Tylenol Extra Strength 500 MG 09/19/2020 12:00:00 AM EST 2.0 {tablet} active Tylenol Ext ra Strength 500 MG eCW1 ([facility]) Tylenol Extra Strength 500 MG Tylenol Extra Strength 500 MG 09/19/2020 12:00:00 AM EST 2.0 {tablet} active Tylenol Ext ra Strength 500 MG eCW1 ([facility]) Tylenol Extra Strength 500 MG Tylenol Extra Strength 500 MG 09/19/2020 12:00:00 AM EST 2.0 {tablet} active Tylenol Ext ra Strength 500 MG eCW1 ([facility]) Tylenol Extra Strength 500 MG Tylenol Extra Strength 500 MG 09/19/2020 12:00:00 AM EST 2.0 {tablet} active Tylenol Ext ra Strength 500 MG eCW1 ([facility]) Tylenol Extra Strength 500 MG Tylenol Extra Strength 500 MG 09/19/2020 12:00:00 AM EST 2.0 {tablet} active Tylenol Ext ra Strength 500 MG eCW1 ([facility]) Tylenol Extra Strength 500 MG Tylenol Extra Strength 500 MG 09/19/2020 12:00:00 AM EST 2.0 {tablet} active Tylenol Ext ra Strength 500 MG eCW1 ([facility]) Tylenol Extra Strength 500 MG Tylenol Extra Strength 500 MG 09/19/2020 12:00:00 AM EST 2.0 {tablet} active Tylenol Ext ra Strength 500 MG eCW1 ([facility]) Tylenol Extra Strength 500 MG Tylenol Extra Strength 500 MG 09/19/2020 12:00:00 AM EST 2.0 {tablet} active Tylenol Ext ra Strength 500 MG eCW1 ([facility]) Tylenol Extra Strength 500 MG Tylenol Extra Strength 500 MG 09/19/2020 12:00:00 AM EST 2.0 {tablet} active Tylenol Ext ra Strength 500 MG eCW1 ([facility]) Tylenol Extra Strength 500 MG Tylenol Extra Strength 500 MG 09/19/2020 12:00:00 AM EST 2.0 {tablet} active Tylenol Ext ra Strength 500 MG eCW1 ([facility]) Tylenol Extra Strength 500 MG Tylenol Extra Strength 500 MG 09/19/2020 12:00:00 AM EST 2.0 {tablet} active Tylenol Ext ra Strength 500 MG eCW1 ([facility]) Menthol 100 MG/ML / methyl salicylate 15 0 MG/ML Topical Cream Bengay Greaseless 10-15 % Bengay Greaseless 10-15 % 09/17/2020 12:00:00 AM EST active Bengay Greaseless 10-15 % eCW1 ([facility]) Menthol 100 MG/ML / methyl salicylate 15 0 MG/ML Topical Cream Bengay Greaseless 10-15 % Bengay Greaseless 10-15 % 09/17/2020 12:00:00 AM EST active Bengay Greaseless 10-15 % eCW1 ([facility]) Menthol 100 MG/ML / methyl salicylate 15 0 MG/ML Topical Cream Bengay Greaseless 10-15 % Bengay Greaseless 10-15 % 09/17/2020 12:00:00 AM EST active Bengay Greaseless 10-15 % eCW1 ([facility]) Menthol 100 MG/ML / methyl salicylate 15 0 MG/ML Topical Cream Bengay Greaseless 10-15 % Bengay Greaseless 10-15 % 09/17/2020 12:00:00 AM EST active Bengay Greaseless 10-15 % eCW1 ([facility]) Menthol 100 MG/ML / methyl salicylate 15 0 MG/ML Topical Cream Bengay Greaseless 10-15 % Bengay Greaseless 10-15 % 09/17/2020 12:00:00 AM EST active Bengay Greaseless 10-15 % eCW1 ([facility]) Menthol 100 MG/ML / methyl salicylate 15 0 MG/ML Topical Cream Bengay Greaseless 10-15 % Bengay Greaseless 10-15 % 09/17/2020 12:00:00 AM EST active Bengay Greaseless 10-15 % eCW1 ([facility]) Menthol 100 MG/ML / methyl salicylate 15 0 MG/ML Topical Cream Bengay Greaseless 10-15 % Bengay Greaseless 10-15 % 09/17/2020 12:00:00 AM EST active Bengay Greaseless 10-15 % eCW1 ([facility]) Menthol 100 MG/ML / methyl salicylate 15 0 MG/ML Topical Cream Bengay Greaseless 10-15 % Bengay Greaseless 10-15 % 09/17/2020 12:00:00 AM EST active Bengay Greaseless 10-15 % eCW1 ([facility]) Menthol 100 MG/ML / methyl salicylate 15 0 MG/ML Topical Cream Bengay Greaseless 10-15 % Bengay Greaseless 10-15 % 09/17/2020 12:00:00 AM EST active Bengay Greaseless 10-15 % eCW1 ([facility]) Menthol 100 MG/ML / methyl salicylate 15 0 MG/ML Topical Cream Bengay Greaseless 10-15 % Bengay Greaseless 10-15 % 09/17/2020 12:00:00 AM EST active Bengay Greaseless 10-15 % eCW1 ([facility]) Menthol 100 MG/ML / methyl salicylate 15 0 MG/ML Topical Cream Bengay Greaseless 10-15 % Bengay Greaseless 10-15 % 09/17/2020 12:00:00 AM EST active Bengay Greaseless 10-15 % eCW1 ([facility]) Menthol 100 MG/ML / methyl salicylate 15 0 MG/ML Topical Cream Bengay Greaseless 10-15 % Bengay Greaseless 10-15 % 09/17/2020 12:00:00 AM EST active Bengay Greaseless 10-15 % eCW1 ([facility]) Warfarin Sodium 7.5 MG Oral Tablet Warfarin Sodium 7.5 MG 12:00:00 AM EST active Warfarin Sodium 7 .5 MG eCW1 ([facility]) Warfarin Sodium 7.5 MG Oral Tablet Warfarin Sodium 7.5 MG 12:00:00 AM EST active Warfarin Sodium 7 .5 MG eCW1 ([facility]) Warfarin Sodium 7.5 MG Oral Tablet Warfarin Sodium 7.5 MG 12:00:00 AM EST active Warfarin Sodium 7 .5 MG eCW1 ([facility]) Warfarin Sodium 7.5 MG Oral Tablet Warfarin Sodium 7.5 MG 12:00:00 AM EST active Warfarin Sodium 7 .5 MG eCW1 ([facility]) Warfarin Sodium 7.5 MG Oral Tablet Warfarin Sodium 7.5 MG 12:00:00 AM EST active Warfarin Sodium 7 .5 MG eCW1 ([facility]) Warfarin Sodium 7.5 MG Oral Tablet Warfarin Sodium 7.5 MG 12:00:00 AM EST active Warfarin Sodium 7 .5 MG eCW1 ([facility]) Warfarin Sodium 7.5 MG Oral Tablet Warfarin Sodium 7.5 MG 12:00:00 AM EST active Warfarin Sodium 7 .5 MG eCW1 ([facility]) Warfarin Sodium 7.5 MG Oral Tablet Warfarin Sodium 7.5 MG 12:00:00 AM EST active Warfarin Sodium 7 .5 MG eCW1 ([facility]) Warfarin Sodium 7.5 MG Oral Tablet Warfarin Sodium 7.5 MG 12:00:00 AM EST active Warfarin Sodium 7 .5 MG eCW1 ([facility]) Warfarin Sodium 7.5 MG Oral Tablet Warfarin Sodium 7.5 MG 12:00:00 AM EST active Warfarin Sodium 7 .5 MG eCW1 ([facility]) Warfarin Sodium 7.5 MG Oral Tablet Warfarin Sodium 7.5 MG 12:00:00 AM EST active Warfarin Sodium 7 .5 MG eCW1 ([facility]) Warfarin Sodium 7.5 MG Oral Tablet Warfarin Sodium 7.5 MG 12:00:00 AM EST active Warfarin Sodium 7 .5 MG eCW1 ([facility]) Warfarin Sodium 7.5 MG Oral Tablet Warfarin Sodium 7.5 MG 12:00:00 AM EST active Warfarin Sodium 7 .5 MG eCW1 ([facility]) doxycycline hyclate 100 MG Oral Tablet Doxycycline Hyclate 1 11/03/2019 12:00:00 AM EST ORAL active MEDENT ([facility]) 3 ML Insulin Glargine 100 UNT/ML Pen Inj marlen [Lantus] Lantus SoloStar 100 UNIT/ML Lantus SoloStar 100 UNIT/ML 08/21/2020 12:00:00 AM EDT active Lantus SoloStar 100 UNIT/ML eCW1 ([facility]) 3 ML Insulin Glargine 100 UNT/ML Pen Inj marlen [Lantus] Lantus SoloStar 100 UNIT/ML Lantus SoloStar 100 UNIT/ML 08/21/2020 12:00:00 AM EDT active Lantus SoloStar 100 UNIT/ML eCW1 ([facility]) 3 ML Insulin Glargine 100 UNT/ML Pen Inj marlen [Lantus] Lantus SoloStar 100 UNIT/ML Lantus SoloStar 100 UNIT/ML 08/21/2020 12:00:00 AM EDT active Lantus SoloStar 100 UNIT/ML eCW1 ([facility]) 3 ML Insulin Glargine 100 UNT/ML Pen Inj marlen [Lantus] Lantus SoloStar 100 UNIT/ML Lantus SoloStar 100 UNIT/ML 08/21/2020 12:00:00 AM EDT active Lantus SoloStar 100 UNIT/ML eCW1 ([facility]) 3 ML Insulin Glargine 100 UNT/ML Pen Inj marlen [Lantus] Lantus SoloStar 100 UNIT/ML Lantus SoloStar 100 UNIT/ML 08/21/2020 12:00:00 AM EDT active Lantus SoloStar 100 UNIT/ML eCW1 ([facility]) 3 ML Insulin Glargine 100 UNT/ML Pen Inj marlen [Lantus] Lantus SoloStar 100 UNIT/ML Lantus SoloStar 100 UNIT/ML 08/21/2020 12:00:00 AM EDT active Lantus SoloStar 100 UNIT/ML eCW1 ([facility]) 3 ML Insulin Glargine 100 UNT/ML Pen Inj marlen [Lantus] Lantus SoloStar 100 UNIT/ML Lantus SoloStar 100 UNIT/ML 08/21/2020 12:00:00 AM EDT active Lantus SoloStar 100 UNIT/ML eCW1 ([facility]) 3 ML Insulin Glargine 100 UNT/ML Pen Inj marlen [Lantus] Lantus SoloStar 100 UNIT/ML Lantus SoloStar 100 UNIT/ML 08/21/2020 12:00:00 AM EDT active Lantus SoloStar 100 UNIT/ML eCW1 ([facility]) 3 ML Insulin Glargine 100 UNT/ML Pen Inj marlen [Lantus] Lantus SoloStar 100 UNIT/ML Lantus SoloStar 100 UNIT/ML 08/21/2020 12:00:00 AM EDT active Lantus SoloStar 100 UNIT/ML eCW1 ([facility]) 3 ML Insulin Glargine 100 UNT/ML Pen Inj marlen [Lantus] Lantus SoloStar 100 UNIT/ML Lantus SoloStar 100 UNIT/ML 08/21/2020 12:00:00 AM EDT active Lantus SoloStar 100 UNIT/ML eCW1 ([facility]) 3 ML Insulin Glargine 100 UNT/ML Pen Inj marlen [Lantus] Lantus SoloStar 100 UNIT/ML Lantus SoloStar 100 UNIT/ML 08/21/2020 12:00:00 AM EDT active Lantus SoloStar 100 UNIT/ML eCW1 ([facility]) 3 ML Insulin Glargine 100 UNT/ML Pen Inj marlen [Lantus] Lantus SoloStar 100 UNIT/ML Lantus SoloStar 100 UNIT/ML 08/21/2020 12:00:00 AM EDT active Lantus SoloStar 100 UNIT/ML eCW1 ([facility]) 3 ML Insulin Glargine 100 UNT/ML Pen Inj marlen [Lantus] Lantus SoloStar 100 UNIT/ML Lantus SoloStar 100 UNIT/ML 08/21/2020 12:00:00 AM EDT active Lantus SoloStar 100 UNIT/ML eCW1 ([facility]) 3 ML Insulin Glargine 100 UNT/ML Pen Inj marlen [Lantus] Lantus SoloStar 100 UNIT/ML Lantus SoloStar 100 UNIT/ML 08/21/2020 12:00:00 AM EDT active Lantus SoloStar 100 UNIT/ML eCW1 ([facility]) 3 ML Insulin Glargine 100 UNT/ML Pen Inj marlen [Lantus] Lantus SoloStar 100 UNIT/ML Lantus SoloStar 100 UNIT/ML 08/21/2020 12:00:00 AM EDT active Lantus SoloStar 100 UNIT/ML eCW1 ([facility]) 3 ML Insulin Glargine 100 UNT/ML Pen Inj marlen [Lantus] Lantus SoloStar 100 UNIT/ML Lantus SoloStar 100 UNIT/ML 08/21/2020 12:00:00 AM EDT active Lantus SoloStar 100 UNIT/ML eCW1 ([facility]) 3 ML Insulin Glargine 100 UNT/ML Pen Inj marlen [Lantus] Lantus SoloStar 100 UNIT/ML Lantus SoloStar 100 UNIT/ML 08/21/2020 12:00:00 AM EDT active Lantus SoloStar 100 UNIT/ML eCW1 ([facility]) 3 ML Insulin Glargine 100 UNT/ML Pen Inj marlen [Lantus] Lantus SoloStar 100 UNIT/ML Lantus SoloStar 100 UNIT/ML 08/21/2020 12:00:00 AM EDT active Lantus SoloStar 100 UNIT/ML eCW1 ([facility]) 3 ML Insulin Glargine 100 UNT/ML Pen Inj mralen [Lantus] Lantus SoloStar 100 UNIT/ML Lantus SoloStar 100 UNIT/ML 08/21/2020 12:00:00 AM EDT active Lantus SoloStar 100 UNIT/ML eCW1 ([facility]) 3 ML Insulin Glargine 100 UNT/ML Pen Inj marlen [Lantus] Lantus SoloStar 100 UNIT/ML Lantus SoloStar 100 UNIT/ML 08/21/2020 12:00:00 AM EDT active Lantus SoloStar 100 UNIT/ML eCW1 ([facility]) 3 ML Insulin Glargine 100 UNT/ML Pen Inj marlen [Lantus] Lantus SoloStar 100 UNIT/ML Lantus SoloStar 100 UNIT/ML 08/21/2020 12:00:00 AM EDT active Lantus SoloStar 100 UNIT/ML eCW1 ([facility]) 3 ML Insulin Glargine 100 UNT/ML Pen Inj marlen [Lantus] Lantus SoloStar 100 UNIT/ML Lantus SoloStar 100 UNIT/ML 08/21/2020 12:00:00 AM EDT active Lantus SoloStar 100 UNIT/ML eCW1 ([facility]) 3 ML Insulin Glargine 100 UNT/ML Pen Inj marlen [Lantus] Lantus SoloStar 100 UNIT/ML Lantus SoloStar 100 UNIT/ML 08/21/2020 12:00:00 AM EDT active Lantus SoloStar 100 UNIT/ML eCW1 ([facility]) 3 ML Insulin Glargine 100 UNT/ML Pen Inj marlen [Lantus] Lantus SoloStar 100 UNIT/ML Lantus SoloStar 100 UNIT/ML 08/21/2020 12:00:00 AM EDT active Lantus SoloStar 100 UNIT/ML eCW1 ([facility]) 3 ML Insulin Glargine 100 UNT/ML Pen Inj marlen [Lantus] Lantus SoloStar 100 UNIT/ML Lantus SoloStar 100 UNIT/ML 08/21/2020 12:00:00 AM EDT active Lantus SoloStar 100 UNIT/ML eCW1 ([facility]) 3 ML Insulin Glargine 100 UNT/ML Pen Inj marlen [Lantus] Lantus SoloStar 100 UNIT/ML Lantus SoloStar 100 UNIT/ML 08/21/2020 12:00:00 AM EDT active Lantus SoloStar 100 UNIT/ML eCW1 ([facility]) 3 ML Insulin Glargine 100 UNT/ML Pen Inj marlen [Lantus] Lantus SoloStar 100 UNIT/ML Lantus SoloStar 100 UNIT/ML 08/21/2020 12:00:00 AM EDT active Lantus SoloStar 100 UNIT/ML eCW1 ([facility]) 3 ML Insulin Glargine 100 UNT/ML Pen Inj marlen [Lantus] Lantus SoloStar 100 UNIT/ML Lantus SoloStar 100 UNIT/ML 08/21/2020 12:00:00 AM EDT active Lantus SoloStar 100 UNIT/ML eCW1 ([facility]) 3 ML Insulin Glargine 100 UNT/ML Pen Inj marlen [Lantus] Lantus SoloStar 100 UNIT/ML Lantus SoloStar 100 UNIT/ML 08/21/2020 12:00:00 AM EDT active Lantus SoloStar 100 UNIT/ML eCW1 ([facility]) 3 ML Insulin Glargine 100 UNT/ML Pen Inj marlen [Lantus] Lantus SoloStar 100 UNIT/ML Lantus SoloStar 100 UNIT/ML 08/21/2020 12:00:00 AM EDT active Lantus SoloStar 100 UNIT/ML eCW1 ([facility]) 3 ML Insulin Glargine 100 UNT/ML Pen Inj marlen [Lantus] Lantus SoloStar 100 UNIT/ML Lantus SoloStar 100 UNIT/ML 08/21/2020 12:00:00 AM EDT active Lantus SoloStar 100 UNIT/ML eCW1 ([facility]) 3 ML Insulin Glargine 100 UNT/ML Pen Inj marlen [Lantus] Lantus SoloStar 100 UNIT/ML Lantus SoloStar 100 UNIT/ML 08/21/2020 12:00:00 AM EDT active Lantus SoloStar 100 UNIT/ML eCW1 ([facility]) 3 ML Insulin Glargine 100 UNT/ML Pen Inj marlen [Lantus] Lantus SoloStar 100 UNIT/ML Lantus SoloStar 100 UNIT/ML 08/21/2020 12:00:00 AM EDT active Lantus SoloStar 100 UNIT/ML eCW1 ([facility]) BD Ultra-fine Pen [place] 32G 4mm UNK 08/20/2020 12:00:00 AM EDT active BD Ultra-fine Pen [place] 32G 4m m eCW1 ([facility]) BD Ultra-fine Pen [place] 32G 4mm UNK 08/20/2020 12:00:00 AM EDT active BD Ultra-fine Pen [place] 32G 4m m eCW1 ([facility]) sitagliptin 50 MG Oral Tablet [Januvia] Januvia 50 MG Januvi a 50 MG 08/20/2020 12:00:00 AM EDT 1.0 {tablet} active Ja meghan 50 MG eCW1 ([facility]) BD Ultra-fine Pen [place] 32G 4mm UNK 08/20/2020 12:00:00 AM EDT active BD Ultra-fine Pen [place] 32G 4m m eCW1 ([facility]) sitagliptin 50 MG Oral Tablet [Januvia] Januvia 50 MG Januvi a 50 MG 08/20/2020 12:00:00 AM EDT 1.0 {tablet} active Ja meghan 50 MG eCW1 ([facility]) sitagliptin 50 MG Oral Tablet [Januvia] Januvia 50 MG Januvi a 50 MG 08/20/2020 12:00:00 AM EDT 1.0 {tablet} active Ja meghan 50 MG eCW1 ([facility]) sitagliptin 50 MG Oral Tablet [Januvia] Januvia 50 MG Januvi a 50 MG 08/20/2020 12:00:00 AM EDT 1.0 {tablet} active Ja meghan 50 MG eCW1 ([facility]) sitagliptin 50 MG Oral Tablet [Novuvia] Januvia 50 MG Januvi a 50 MG 08/20/2020 12:00:00 AM EDT 1.0 {tablet} active Ja meghan 50 MG eCW1 ([facility]) BD Ultra-fine Pen [place] 32G 4mm UNK 08/20/2020 12:00:00 AM EDT active BD Ultra-fine Pen [place] 32G 4m m eCW1 ([facility]) BD Ultra-fine Pen [place] 32G 4mm UNK 08/20/2020 12:00:00 AM EDT active BD Ultra-fine Pen [place] 32G 4m m eCW1 ([facility]) Colloidal oatmeal 10 MG/ML Topical Cream [Eucerin Ecze ma Relief] Eucerin Eczema Relief 07/18/2020 12:00:00 AM EDT active MEDENT ([facility]) Insurance Providers Payer name Policy type / Coverage type Policy ID Covered alliance party ID Covered alliance party's relationship to matt Policy Matt Plan Information [facility] I [id number] Self [id number] [facility] [id number] Self [id number] MEDICAID M [id number] Self [id number] [facility] I [id number] Self [id number] [facility] I [id number] Self [id number] MEDICAID M [id number] Self [id number] Medicaid P [id number] S [id number] MEDICAID [id number] SP [id number] MEDICAID [id number] SP [id number] MEDICAID [id number] SP [id number] MEDICARE [id number] SP [id number] A MEDICAID [id number] ANSI-Medicare Part B [id number] ANSI-Medicaid [id number] ANSI-Medicaid [id number] ANSI-Medicare Part B [id number] ANSI-Medicare Part B [id number] ANSI-Medicaid [id number] ANSI-Medicare Part B [id number] ANSI-Medicaid [id number] ANSI-Medicaid [id number] ANSI-Medicare Part B [id number] ANSI-Medicare Part B [id number] ANSI-Medicaid [id number] ANSI-Medicare Part B [id number] ANSI-Medicaid [id number] ANSI-Medicaid [id number] ANSI-Medicare Part B [id number] ANSI-Medicare Part B [id number] ANSI-Medicaid [id number] MEDICARE [id number] SP [id number] A ANSI-Medicare Part B [id number] ANSI-Medicaid [id number] ANSI-Medicare Part B [id number] ANSI-Medicaid [id number] ANSI-Medicaid [id number] ANSI-Medicare Part B [id number] ANSI-Medicaid [id number] ANSI-Medicare Part B [id number] ANSI-Medicaid [id number] ANSI-Medicare Part B [id number] ANSI-Medicaid [id number] ANSI-Medicare Part B [id number] ANSI-Medicaid [id number] ANSI-Medicare Part B [id number] Medicaid [facility] Part B [id number] Self [id number] Medicare [employer] [employer] Primary [id number] Self [id number] ANSI-Medicaid [id number] ANSI-Medicare Part B [id number] ANSI-Medicare Part B [id number] ANSI-Medicaid [id number] ANSI-Medicare Part B [id number] ANSI-Medicaid [id number] ANSI-Medicare Part B [id number] ANSI-Medicaid [id number] ANSI-Medicaid [id number] ANSI-Medicare Part B [id number] ANSI-Medicaid [id number] ANSI-Medicare Part B [id number] ANSI-Medicaid [id number] ANSI-Medicare Part B [id number] ANSI-Medicaid [id number] ANSI-Medicare Part B [id number] ANSI-Medicare Part B [id number] ANSI-Medicaid [id number] ANSI-Medicare Part B [id number] ANSI-Medicaid [id number] ANSI-Medicaid [id number] ANSI-Medicare Part B [id number] ANSI-Medicaid [id number] ANSI-Medicare Part B [id number] ANSI-Medicaid [id number] ANSI-Medicare Part B [id number] ANSI-Medicare Part B [id number] ANSI-Medicaid [id number] ANSI-Medicare Part B [id number] ANSI-Medicaid [id number] Medicaid ID [place] Part B [id number]9 .[id number] Self [id number] [place] [id number] 2.0.1.852999.3.227.99.6619.10972.0 Self [id number] Medicaid Medigap Part B [id number] 84.0 Self [id number] Medicare Natl Govt Serv Medicare Primary [id number] Self [id number] Medicaid Medigap Part B [id number]1 84.0 Self [id number] Medicare Natl Govt Serv Medicare Primary [id number] Self [id number] Medicaid Medigap Part B [id number]1 84.0 Self [id number] Medicare [facility] Govt Serv Medicare Primary [id number] 2..840.1.305694.3.227.99.4595.09845.0 Self [id number] MEDICARE C [id number] S [id number] A Medicaid Medigap Part B [id number]595.281 84.0 Self [id number] Medicare [facility] Govt Serv Medicare Primary [id number]595.03729.0 Self [id number] Medicaid Medigap Part B [id number] 2.840.1.447942.3.227.99.4595.281 84.0 Self [id number] Medicare [facility] Medicare Primary [id number] 2.840.1.273151.3.227.99.4595.84243.0 Self [id number] Medicaid Medigap Part B [id number]595.281 84.0 Self [id number] Medicare [facility] Medicare Primary [id number]595.70304.0 Self [id number] [place] Primary [id number] 2.840.1.106222.3.227.99.8646.334386.0 Self [id number] Medicaid Medigap Part B [id number] 2.840.1.001578.3.227.99.4595.281 84.0 Self [id number] Medicare [facility] Govt Servic Medicare Primary [id number] 2.840.1.503036.3.227.99.4595.05283.0 Self [id number] Medicaid Medicaid [id number] 2.840.1.366308.3.227.99.4595.30996.0 Self [id number] Medicaid Medicaid [id number]9.4595.42489.0 Self [id number] Medicaid Medicaid [id number] 2.16.840.1.758259.3.227.99.4595.90364.0 Self [id number] Medicaid Medicaid [id number] 2.16.840.1.093902.3.227.99.4595.20833.0 Self [id number] [facility] PLAN MCDHMO UNAVAILABLE SP UNAVAILABLE Medicaid Medicaid 1 1 2.16.840.1.300680.3.227.99.4595.89981.0 Self 1 1 [facility] Community Plan(Medicaid) [id number] 18 [id number] [facility] Plan [id number] 18 [id number] [facility] MEDICAID [id number] SP [id number] M [facility] PLAN [facility] [id number] S [id number] MEDICARE [id number] SP [id number] [place] [id number] SP [id number] MEDICARE C [id number] S [id number] MEDICAID M [id number] S [id number] MEDICAID [id number] SP [id number] ANS-Medicaid [id number] ANSI-Medicare Part [id number] ANSI-Medicaid [id number] ANSI-Medicare Part B [id number] ANSI-Medicaid [id number] [facility] [id number] Problems, Conditions, and Diagnoses Code Display Name Description Problem Type Effective Dates Data Source(s) K59.00 Constipation Constipation Problem 05/24/2021 12:00:00 A M EDT eCW1 ([facility]) Z51.81 [id number] Encounter for therapeutic drug level rinku toring Problem 08/22/2020 12:00:00 AM EDT eCW1 ([facility]) N18.3 Chronic kidney disease stage 3 Chronic k idney disease (CKD), stage 3 (moderate) Problem 08/20/2020 12:00:00 AM EDT eCW1 ([facility]) Surgeries/Procedures Procedure Description Date Indications Data Source(s) COLONOSCOPY W/BIOPSY SINGLE/MULTIPLE 07/29/2021 12:00: 00 AM EDT MEDENT ([facility]) OFFICE OUTPATIENT VISIT 15 MINUTES 06/06/2021 12:00:00 AM EDT MEDENT ([facility]) INCISION & DRAINAGE ABSCESS SIMPLE/SINGLE 05/30/2021 1 2:00:00 AM EDT MEDENT ([facility]) OFFICE OUTPATIENT VISIT 25 MINUTES 05/30/2021 12:00:00 AM EDT MEDENT ([facility]) COLSC FLX PROX SPLENIC FLXR RMVL LES SNARE TQ 11/21/19 12:00:00 AM EST MEDENT ([facility]) Results ID Date Data Source [id number] 07/29/2021 09:38:00 AM EDT MEDENT ([facility]) Name Value Range Interpretation Code Description Data Cintia rce(s) Supporting Document(s) Surgical pathology study Laboratory test result MEDENT ([facility]) FINAL DIAGNOSIS Mid ascending colon polyps, polypectomy: Tubular adenoma, fragments. 07/30/2021 - 1044 CLINICAL DIAGNOSIS Right sided polyp 07/29/2021 - 1505 GROSS DIAGNOSIS Received in formalin labeled "mid ascending colon polyps" and consists of fragments of tissue 0.3 x 0.2 x 0.1 cm. in aggregate. All in one. -OA 07/29/2021 - 1505 Signed OBIE CESPEDES MD 07/30/2021 1045 ID Date Data Source [id number] 07/24/2021 09:15:00 AM EDT [facility] Name Value Range Interpretation Code Description Data Cintia rce(s) Supporting Document(s) SARS-CoV-2 (COVID-19) RNA [Presence] in Respiratory specimen by ALYSHA with probe detection Not Detected [facility] This lab was ordered by [facility] and reported by [employer]. ID Date Data Source [facility] CT Head without contrast 03/15/2021 12:00:00 AM EDT eCW1 ([facility]) Name Value Range Interpretation Code Description Data Cintia rce(s) Supporting Document(s) [facility] CT Head without contrast e CW1 ([facility]) ID Date Data Source PLZ SPINE LS COMPLETE 01/25/2021 12:00:00 AM EDT eCW1 ([facility]) Name Value Range Interpretation Code Description Data Cintia rce(s) Supporting Document(s) PLZ SPINE LS COMPLETE eCW1 ([facility]) ID Date Data Source [id number] 12/17/2020 10:00:00 AM EST [facility] Name Value Range Interpretation Code Description Data Cintia rce(s) Supporting Document(s) SARS coronavirus 2 RNA Not Detected [facility] This lab was ordered by [facility] and reported by [facility]. ID Date Data Source [id number] 12/10/2020 09:30:00 AM EST [facility] Name Value Range Interpretation Code Description Data Cintia rce(s) Supporting Document(s) SARS coronavirus 2 RNA Not Detected [facility] This lab was ordered by [facility] and reported by [facility]. ID Date Data Source [id number] 12/03/2020 09:00:00 AM EST [facility] Name Value Range Interpretation Code Description Data Cintia rce(s) Supporting Document(s) SARS coronavirus 2 RNA Not Detected [facility] This lab was ordered by [facility] and reported by [facility]. ID Date Data Source [id number] 11/26/2020 01:00:00 PM EST [facility] Name Value Range Interpretation Code Description Data Cintia rce(s) Supporting Document(s) SARS coronavirus 2 RNA Not Detected [facility] This lab was ordered by [facility] and reported by [facility]. ID Date Data Source [id number] 11/21/2020 08:07:00 AM EST MEDENT ([facility]) Name Value Range Interpretation Code Description Data Cintia rce(s) Supporting Document(s) Surgical pathology study [facility] FINAL DIAGNOSIS Colon, hepatic flexure polyp, polypectomy: Fragments of tubulovillous adenoma 11/22/2020 - 1137 CLINICAL DIAGNOSIS H/O tubulovillous adenoma hepatic flexure 11/21/2020 - 1416 GROSS DIAGNOSIS Received in formalin labeled "polyp hepatic flexure" and consists of multiple fragments of tissue 0.5 x 0.5 x 0.2 cm. in aggregate. All in one. -OA 11/22/2020 - 1137 Signed OBIE CESPEDES MD 11/22/2020 1138 ID Date Data Source [id number] 11/19/2020 06:25:00 AM EST [facility] Name Value Range Interpretation Code Description Data Cintia rce(s) Supporting Document(s) SARS coronavirus 2 RNA Not Detected [facility] This lab was ordered by [facility] and reported by [facility]. ID Date Data Source [id number] 11/16/2020 10:00:00 AM EST [facility] Name Value Range Interpretation Code Description Data Cintia rce(s) Supporting Document(s) SARS coronavirus 2 RNA Not Detected [facility] This lab was ordered by [facility] and reported by [facility]. ID Date Data Source [id number] 11/12/2020 06:00:00 AM EST [facility] Name Value Range Interpretation Code Description Data Cintia rce(s) Supporting Document(s) SARS coronavirus 2 RNA Not Detected [facility] This lab was ordered by [facility] and reported by [facility]. ID Date Data Source CBC with Differential 11/07/2020 12:00:00 AM EST eCW1 ([facility]) Name Value Range Interpretation Code Description Data Cintia rce(s) Supporting Document(s) 7.4 4.0-10.0 WHITE BLOOD COUNT eCW1 ([facility]) 4.81 4.00-5.40 RED BLOOD COUNT eCW1 ([facility]) 12.4 12.0-15.5 HEMOGLOBIN eCW1 ([facility]) 40.7 36.0-47.0 HEMATOCRIT eCW1 ([facility]) 84.6 80.0-96.0 MEAN CORPUSCULAR VOLUME e CW1 ([facility]) 30.5 32.0-36.5 MEAN CORPUSCULAR HGB CONC eCW1 ([facility]) 25.8 27.0-33.0 MEAN CORPUSCULAR HEMOGLOB IN eCW1 ([facility]) 41.1 24.0-44.0 LYMPH % eCW1 ([facility]) 43.3 36.0-66.0 NEUTROPHILS % eCW1 ([facility]) 15.9 11.5-14.5 RED CELL DISTRIBUTION WID TH eCW1 ([facility]) 310 150-450 PLATELET COUNT, AUTOMATED eCW1 ([facility]) 8.7 0.0-5.0 MONO % eCW1 ([facility]) 0.5 0.0-1.0 BASO % eCW1 ([facility]) 6.1 0.0-3.0 EOS % eCW1 ([facility]) 3.2 1.5-8.5 NEUTROPHILS # eCW1 ([facility]) 0.5 0.0-0.5 EOS # eCW1 ([facility]) 0.0 0.0-0.2 BASO # eCW1 ([facility]) 0.6 0.0-0.8 MONO # eCW1 ([facility]) 3.0 1.5-5.0 LYMPH # eCW1 ([facility]) ID Date Data Source [id number] 11/07/2020 12:00:00 AM EST eCW1 ([facility]) Name Value Range Interpretation Code Description Data Cintia rce(s) Supporting Document(s) 25 <125 NT-PRO BNP eCW1 ([facility]) ID Date Data Source [id number] 11/05/2020 07:30:00 AM EST [facility] Name Value Range Interpretation Code Description Data Cintia rce(s) Supporting Document(s) SARS coronavirus 2 RNA Not Detected [facility] This lab was ordered by [facility] and reported by [facility]. ID Date Data Source [id number] 10/29/2020 07:35:00 AM EST [facility] Name Value Range Interpretation Code Description Data Cintia rce(s) Supporting Document(s) SARS coronavirus 2 RNA [facility] This lab was ordered by [facility] and reported by [facility]. ID Date Data Source [id number] 10/22/2020 09:30:00 AM EST [facility] Name Value Range Interpretation Code Description Data Cintia rce(s) Supporting Document(s) SARS coronavirus 2 RNA [facility] This lab was ordered by [facility] and reported by [facility]. ID Date Data Source [id number] 10/17/2020 11:35:00 AM EST [facility] Name Value Range Interpretation Code Description Data Cintia rce(s) Supporting Document(s) SARS coronavirus 2 RNA [facility] This lab was ordered by [facility] and reported by [facility]. ID Date Data Source [id number] 10/17/2020 12:00:00 AM EST [facility] Name Value Range Interpretation Code Description Data Cintia rce(s) Supporting Document(s) SARS-CoV2 Rapid Antigen [facility] This lab was ordered by [facility] and reported by [facility]. ID Date Data Source [id number] 10/12/2020 02:42:00 PM EST [facility] Name Value Range Interpretation Code Description Data Cintia rce(s) Supporting Document(s) SARS coronavirus 2 RNA [facility] This lab was ordered by [facility] and reported by [facility]. Procedure Social History Code Duration Value Status Description Data Source(s ) Smoking 09/09/2021 12:00:00 AM EST Former Smoker completed Former Smoker eCW1 ([facility]) Smoking 05/24/2021 12:00:00 AM EDT Former Smoker completed Former Smoker eCW1 ([facility]) Smoking 05/24/2021 12:00:00 AM EDT Former Smoker completed Former Smoker eCW1 ([facility]) Smoking 05/24/2021 12:00:00 AM EDT Former Smoker completed Former Smoker eCW1 ([facility]) Smoking 05/24/2021 12:00:00 AM EDT Former Smoker completed Former Smoker eCW1 ([facility]) Smoking 05/24/2021 12:00:00 AM EDT Former Smoker completed Former Smoker eCW1 ([facility]) Smoking 05/24/2021 12:00:00 AM EDT Former Smoker completed Former Smoker eCW1 ([facility]) Smoking 05/24/2021 12:00:00 AM EDT Former Smoker completed Former Smoker eCW1 ([facility]) Smoking 05/24/2021 12:00:00 AM EDT Former Smoker completed Former Smoker eCW1 ([facility]) Smoking 05/24/2021 12:00:00 AM EDT Former Smoker completed Former Smoker eCW1 ([facility]) Smoking 05/24/2021 12:00:00 AM EDT Former Smoker completed Former Smoker eCW1 ([facility]) Smoking 05/24/2021 12:00:00 AM EDT Former Smoker completed Former Smoker eCW1 ([facility]) Smoking 05/24/2021 12:00:00 AM EDT Former Smoker completed Former Smoker eCW1 ([facility]) Smoking 05/24/2021 12:00:00 AM EDT Former Smoker completed Former Smoker eCW1 ([facility]) Smoking 05/24/2021 12:00:00 AM EDT Former Smoker completed Former Smoker eCW1 ([facility]) Smoking 04/15/2021 12:00:00 AM EDT Former Smoker completed Former Smoker eCW1 ([facility]) Smoking 04/15/2021 12:00:00 AM EDT Former Smoker completed Former Smoker eCW1 ([facility]) Smoking 03/12/2021 12:00:00 AM EDT Former Smoker completed Former Smoker eCW1 ([facility]) Smoking 03/12/2021 12:00:00 AM EDT Former Smoker completed Former Smoker eCW1 ([facility]) Smoking 03/12/2021 12:00:00 AM EDT Former Smoker completed Former Smoker eCW1 ([facility]) Smoking 03/12/2021 12:00:00 AM EDT Former Smoker completed Former Smoker eCW1 ([facility]) Smoking 01/23/2021 12:00:00 AM EDT Former Smoker completed Former Smoker eCW1 ([facility]) Smoking 01/23/2021 12:00:00 AM EDT Former Smoker completed Former Smoker eCW1 ([facility]) Smoking 01/23/2021 12:00:00 AM EDT Former Smoker completed Former Smoker eCW1 ([facility]) Smoking 01/23/2021 12:00:00 AM EDT Former Smoker completed Former Smoker eCW1 ([facility]) Smoking 01/23/2021 12:00:00 AM EDT Former Smoker completed Former Smoker eCW1 ([facility]) Smoking 01/23/2021 12:00:00 AM EDT Former Smoker completed Former Smoker eCW1 ([facility]) Smoking 01/23/2021 12:00:00 AM EDT Former Smoker completed Former Smoker eCW1 ([facility]) Smoking 11/07/2020 12:00:00 AM EST Former Smoker completed Former Smoker eCW1 ([facility]) Smoking 11/07/2020 12:00:00 AM EST Former Smoker completed Former Smoker eCW1 ([facility]) Smoking 11/07/2020 12:00:00 AM EST Former Smoker completed Former Smoker eCW1 ([facility]) Smoking 11/07/2020 12:00:00 AM EST Former Smoker completed Former Smoker eCW1 ([facility]) Smoking 11/07/2020 12:00:00 AM EST Former Smoker completed Former Smoker eCW1 ([facility]) Smoking 11/07/2020 12:00:00 AM EST Former Smoker completed Former Smoker eCW1 ([facility]) Smoking 11/07/2020 12:00:00 AM EST Former Smoker completed Former Smoker eCW1 ([facility]) Smoking 11/07/2020 12:00:00 AM EST Former Smoker completed Former Smoker eCW1 ([facility]) Smoking 11/07/2020 12:00:00 AM EST Former Smoker completed Former Smoker eCW1 ([facility]) Smoking 11/07/2020 12:00:00 AM EST Former Smoker completed Former Smoker eCW1 ([facility]) Smoking 11/07/2020 12:00:00 AM EST Former Smoker completed Former Smoker eCW1 ([facility]) Smoking 11/07/2020 12:00:00 AM EST Former Smoker completed Former Smoker eCW1 ([facility]) Smoking 11/07/2020 12:00:00 AM EST Former Smoker completed Former Smoker eCW1 ([facility]) Smoking 11/07/2020 12:00:00 AM EST Former Smoker completed Former Smoker eCW1 ([facility]) Smoking 11/07/2020 12:00:00 AM EST Former Smoker completed Former Smoker eCW1 ([facility]) Smoking 11/07/2020 12:00:00 AM EST Former Smoker completed Former Smoker eCW1 ([facility]) Smoking 09/26/2020 12:00:00 AM EST Former Smoker completed Former Smoker eCW1 ([facility]) Smoking 09/26/2020 12:00:00 AM EST Former Smoker completed Former Smoker eCW1 ([facility]) Smoking 09/26/2020 12:00:00 AM EST Former Smoker completed Former Smoker eCW1 ([facility]) Smoking 09/26/2020 12:00:00 AM EST Former Smoker completed Former Smoker eCW1 ([facility]) Smoking 09/26/2020 12:00:00 AM EST Former Smoker completed Former Smoker eCW1 ([facility]) Smoking 09/26/2020 12:00:00 AM EST Former Smoker completed Former Smoker eCW1 ([facility]) Smoking 09/26/2020 12:00:00 AM EST Former Smoker completed Former Smoker eCW1 ([facility]) Smoking 09/26/2020 12:00:00 AM EST Former Smoker completed Former Smoker eCW1 ([facility]) Smoking 09/17/2020 12:00:00 AM EST Former Smoker completed Former Smoker eCW1 ([facility]) Smoking 09/17/2020 12:00:00 AM EST Former Smoker completed Former Smoker eCW1 ([facility]) Smoking 09/17/2020 12:00:00 AM EST Former Smoker completed Former Smoker eCW1 ([facility]) Smoking 09/17/2020 12:00:00 AM EST Former Smoker completed Former Smoker eCW1 ([facility]) Smoking 08/20/2020 12:00:00 AM EDT Former Smoker completed Former Smoker eCW1 ([facility]) Smoking 08/20/2020 12:00:00 AM EDT Former Smoker completed Former Smoker eCW1 ([facility]) Smoking 08/20/2020 12:00:00 AM EDT Former Smoker completed Former Smoker eCW1 ([facility]) Smoking 08/20/2020 12:00:00 AM EDT Former Smoker completed Former Smoker eCW1 ([facility]) Smoking 08/20/2020 12:00:00 AM EDT Former Smoker completed Former Smoker eCW1 ([facility]) Vital Signs ID Date Data Source UNK Name Value Range Interpretation Code Description Data Source(s) Body weight 218 [lb_av] 218 [lb_av] eCW1 ([facility]) Body weight 98.88 kg 98.88 kg eCW1 ([facility]) Body height 68 [in_i] 68 [in_i] W1 ([facility]) Body mass index (BMI) [Ratio] 33.14 kg/m2 33.14 kg/m2 W1 ([facility]) Body temperature 97.4 [degF] 97.4 [degF] W1 ( [facility]) Systolic blood pressure 134 mm[Hg] 134 mm[Hg] e CW1 ([facility]) Diastolic blood pressure 80 mm[Hg] 80 mm[Hg] eCW1 ([facility]) Heart rate 102 /min 102 /min eCW1 ([facility]) Respiratory rate 18 /min 18 /min eCW1 ([facility]) Body height 66 [in_i] 66 [in_i] MEDENT ([facility]) 5'6" Body weight 217.00 [lb_av] 217.00 [lb_av] MEDEN T ([facility]) Stated Diastolic blood pressure 76 mm[Hg] 76 mm[Hg] MEDENT ([facility]) Heart rate 74 /min 74 /min [facility] ([facility]) Systolic blood pressure 125 mm[Hg] 125 mm[Hg] M EDENT ([facility]) Body mass index (BMI) [Ratio] 35.0 kg/m2 35.0 k g/m2 MEDENT ([facility]) Body weight 98.431 kg 98.431 kg MEDENT ([facility]) Body temperature 98.1 [degF] 98.1 [degF] MEDENT ([facility]) Systolic blood pressure 130 mm[Hg] 130 mm[Hg] M EDENT ([facility]) Diastolic blood pressure 65 mm[Hg] 65 mm[Hg] MEDENT ([facility]) Body temperature 97.0 [degF] 97.0 [degF] MEDENT ([facility]) Heart rate 68 /min 68 /min MEDENT ([facility]) Body weight 216 [lb_av] 216 [lb_av] eCW1 ([facility]) Body height 68 [in_i] 68 [in_i] eCW1 ([facility]) Body mass index (BMI) [Ratio] 32.84 kg/m2 32.84 kg/m2 eCW1 ([facility]) Heart rate 78 /min 78 /min eCW1 ([facility]) Respiratory rate 18 /min 18 /min eCW1 ([facility]) Body temperature 98.3 [degF] 98.3 [degF] eCW1 ( [facility]) Systolic blood pressure 134 mm[Hg] 134 mm[Hg] e CW1 ([facility]) Diastolic blood pressure 62 mm[Hg] 62 mm[Hg] eCW1 ([facility]) Body weight 216 [lb_av] 216 [lb_av] eCW1 ([facility]) Body height 68 [in_i] 68 [in_i] eCW1 ([facility]) Body mass index (BMI) [Ratio] 32.84 kg/m2 32.84 kg/m2 eCW1 ([facility]) Heart rate 98 /min 98 /min eCW1 ([facility]) Respiratory rate 18 /min 18 /min eCW1 ([facility]) Body temperature 98.1 [degF] 98.1 [degF] eCW1 ( [facility]) Systolic blood pressure 140 mm[Hg] 140 mm[Hg] e CW1 ([facility]) Diastolic blood pressure 90 mm[Hg] 90 mm[Hg] eCW1 ([facility]) Body weight 219 [lb_av] 219 [lb_av] eCW1 ([facility]) Body height 68 [in_i] 68 [in_i] eCW1 ([facility]) Body mass index (BMI) [Ratio] 33.30 kg/m2 33.30 kg/m2 eCW1 ([facility]) Heart rate 103 /min 103 /min eCW1 ([facility]) Respiratory rate 18 /min 18 /min eCW1 ([facility]) Body temperature 97.8 [degF] 97.8 [degF] eCW1 ( [facility]) Systolic blood pressure 140 mm[Hg] 140 mm[Hg] e CW1 ([facility]) Diastolic blood pressure 80 mm[Hg] 80 mm[Hg] eCW1 ([facility]) Body weight 218.8 [lb_av] 218.8 [lb_av] eCW1 ([facility]) Body height 68 [in_i] 68 [in_i] eCW1 ([facility]) Body mass index (BMI) [Ratio] 33.26 kg/m2 33.26 kg/m2 eCW1 ([facility]) Heart rate 100 /min 100 /min eCW1 ([facility]) Respiratory rate 18 /min 18 /min eCW1 ([facility]) Body temperature 98 [degF] 98 [degF] eCW1 ([facility]) Systolic blood pressure 150 mm[Hg] 150 mm[Hg] e CW1 ([facility]) Diastolic blood pressure 90 mm[Hg] 90 mm[Hg] eCW1 ([facility]) Body height 68 [in_i] 68 [in_i] eCW1 ([facility]) Body weight 201 [lb_av] 201 [lb_av] eCW1 ([facility]) Body mass index (BMI) [Ratio] 30.56 kg/m2 30.56 kg/m2 eCW1 ([facility]) Heart rate 88 /min 88 /min eCW1 ([facility]) Respiratory rate 18 /min 18 /min eCW1 ([facility]) Body temperature 98.1 [degF] 98.1 [degF] eCW1 ( [facility]) Systolic blood pressure 124 mm[Hg] 124 mm[Hg] e CW1 ([facility]) Diastolic blood pressure 74 mm[Hg] 74 mm[Hg] eCW1 ([facility]) Body weight 190.00 [lb_av] 190.00 [lb_av] MEDEN T ([facility]) Body temperature 98.9 [degF] 98.9 [degF] MEDENT ([facility]) Respiratory rate 17 /min 17 /min MEDENT ( [facility]) Diastolic blood pressure 78 mm[Hg] 78 mm[Hg] eCW1 ([facility]) Body weight 201 [lb_av] 201 [lb_av] eCW1 ([facility]) Body height 68 [in_i] 68 [in_i] eCW1 ([facility]) Body mass index (BMI) [Ratio] 30.56 kg/m2 30.56 kg/m2 eCW1 ([facility]) Heart rate 92 /min 92 /min eCW1 ([facility]) Respiratory rate 16 /min 16 /min eCW1 ([facility]) Body temperature 98.6 [degF] 98.6 [degF] eCW1 ( [facility]) Systolic blood pressure 144 mm[Hg] 144 mm[Hg] e CW1 ([facility]) Body weight 197.8 [lb_av] 197.8 [lb_av] eCW1 ([facility]) Body height 68 [in_i] 68 [in_i] eCW1 ([facility]) Body mass index (BMI) [Ratio] 30.07 kg/m2 30.07 kg/m2 eCW1 ([facility]) Heart rate 95 /min 95 /min eCW1 ([facility]) Systolic blood pressure 124 mm[Hg] 124 mm[Hg] e CW1 ([facility]) Diastolic blood pressure 74 mm[Hg] 74 mm[Hg] eCW1 ([facility]) Respiratory rate 18 /min 18 /min eCW1 ([facility]) Body temperature 97.1 [degF] 97.1 [degF] eCW1 ( [facility]) Patient Treatment Plan of Care Planned Activity Planned Date Details Description Data Source (s) Zolpidem tartrate 5 MG Oral Tablet [Ambien] 09/03/2021 12:00:00 AM EDT eCW1 ([facility]) Zolpidem tartrate 5 MG Oral Tablet [Ambien] 09/03/2021 12:00:00 AM EDT eCW1 ([facility]) atorvastatin 80 MG Oral Tablet 08/28/2021 12:00:00 AM EDT eCW1 ([facility]) atorvastatin 80 MG Oral Tablet 08/28/2021 12:00:00 AM EDT eCW1 ([facility]) atorvastatin 80 MG Oral Tablet 08/28/2021 12:00:00 AM EDT eCW1 ([facility]) atorvastatin 80 MG Oral Tablet 08/28/2021 12:00:00 AM EDT eCW1 ([facility]) Zolpidem tartrate 5 MG Oral Tablet [Ambien] 08/06/2021 12:00:00 AM EDT eCW1 ([facility]) Zolpidem tartrate 5 MG Oral Tablet [Ambien] 08/06/2021 12:00:00 AM EDT eCW1 ([facility]) Zolpidem tartrate 5 MG Oral Tablet [Ambien] 08/06/2021 12:00:00 AM EDT eCW1 ([facility]) Zolpidem tartrate 5 MG Oral Tablet [Ambien] 08/06/2021 12:00:00 AM EDT eCW1 ([facility]) Zolpidem tartrate 5 MG Oral Tablet [Ambien] 08/06/2021 12:00:00 AM EDT eCW1 ([facility]) Zolpidem tartrate 5 MG Oral Tablet [Ambien] 07/05/2021 12:00:00 AM EDT eCW1 ([facility]) Zolpidem tartrate 5 MG Oral Tablet [Ambien] 07/05/2021 12:00:00 AM EDT eCW1 ([facility]) Zolpidem tartrate 5 MG Oral Tablet [Ambien] 06/03/2021 12:00:00 AM EDT eCW1 ([facility]) Zolpidem tartrate 5 MG Oral Tablet [Ambien] 06/03/2021 12:00:00 AM EDT eCW1 ([facility]) Zolpidem tartrate 5 MG Oral Tablet [Ambien] 06/03/2021 12:00:00 AM EDT eCW1 ([facility]) Zolpidem tartrate 5 MG Oral Tablet [Ambien] 06/03/2021 12:00:00 AM EDT eCW1 ([facility]) tramadol hydrochloride 50 MG Oral Tablet 04/10/2021 12:00:00 AM EDT eCW1 ([facility]) tramadol hydrochloride 50 MG Oral Tablet 04/10/2021 12:00:00 AM EDT eCW1 ([facility]) tramadol hydrochloride 50 MG Oral Tablet 04/10/2021 12:00:00 AM EDT eCW1 ([facility]) tramadol hydrochloride 50 MG Oral Tablet 04/10/2021 12:00:00 AM EDT eCW1 ([facility]) tramadol hydrochloride 50 MG Oral Tablet 04/10/2021 12:00:00 AM EDT eCW1 ([facility]) tramadol hydrochloride 50 MG Oral Tablet 04/10/2021 12:00:00 AM EDT eCW1 ([facility]) tramadol hydrochloride 50 MG Oral Tablet 04/10/2021 12:00:00 AM EDT eCW1 ([facility]) tramadol hydrochloride 50 MG Oral Tablet 04/10/2021 12:00:00 AM EDT eCW1 ([facility]) tramadol hydrochloride 50 MG Oral Tablet 04/10/2021 12:00:00 AM EDT eCW1 ([facility]) tramadol hydrochloride 50 MG Oral Tablet 04/10/2021 12:00:00 AM EDT eCW1 ([facility]) tramadol hydrochloride 50 MG Oral Tablet 04/10/2021 12:00:00 AM EDT eCW1 ([facility]) tramadol hydrochloride 50 MG Oral Tablet 04/10/2021 12:00:00 AM EDT eCW1 ([facility]) tramadol hydrochloride 50 MG Oral Tablet 04/10/2021 12:00:00 AM EDT eCW1 ([facility]) tramadol hydrochloride 50 MG Oral Tablet 04/10/2021 12:00:00 AM EDT eCW1 ([facility]) tramadol hydrochloride 50 MG Oral Tablet 04/10/2021 12:00:00 AM EDT eCW1 ([facility]) tramadol hydrochloride 50 MG Oral Tablet 04/10/2021 12:00:00 AM EDT eCW1 ([facility]) Aspirin 81 MG Delayed Release Oral Tablet 03/12/2021 12:00:00 AM ED T eCW1 ([facility]) Aspirin 81 MG Delayed Release Oral Tablet 03/12/2021 12:00:00 AM ED T eCW1 ([facility]) Aspirin 81 MG Delayed Release Oral Tablet 03/12/2021 12:00:00 AM ED T eCW1 ([facility]) Aspirin 81 MG Delayed Release Oral Tablet 03/12/2021 12:00:00 AM ED T eCW1 ([facility]) Aspirin 81 MG Delayed Release Oral Tablet 03/12/2021 12:00:00 AM ED T eCW1 ([facility]) Aspirin 81 MG Delayed Release Oral Tablet 03/12/2021 12:00:00 AM ED T eCW1 ([facility]) Aspirin 81 MG Delayed Release Oral Tablet 03/12/2021 12:00:00 AM ED T eCW1 ([facility]) Aspirin 81 MG Delayed Release Oral Tablet 03/12/2021 12:00:00 AM ED T eCW1 ([facility]) Aspirin 81 MG Delayed Release Oral Tablet 03/12/2021 12:00:00 AM ED T eCW1 ([facility]) Aspirin 81 MG Delayed Release Oral Tablet 03/12/2021 12:00:00 AM ED T eCW1 ([facility]) Aspirin 81 MG Delayed Release Oral Tablet 03/12/2021 12:00:00 AM ED T eCW1 ([facility]) Aspirin 81 MG Delayed Release Oral Tablet 03/12/2021 12:00:00 AM ED T eCW1 ([facility]) Zolpidem tartrate 5 MG Oral Tablet [Ambien] 03/12/2021 12:00:00 AM EDT eCW1 ([facility]) Aspirin 81 MG Delayed Release Oral Tablet 03/12/2021 12:00:00 AM ED T eCW1 ([facility]) Aspirin 81 MG Delayed Release Oral Tablet 03/12/2021 12:00:00 AM ED T eCW1 ([facility]) Aspirin 81 MG Delayed Release Oral Tablet 03/12/2021 12:00:00 AM ED T eCW1 ([facility]) Aspirin 81 MG Delayed Release Oral Tablet 03/12/2021 12:00:00 AM ED T eCW1 ([facility]) Zolpidem tartrate 5 MG Oral Tablet [Ambien] 03/12/2021 12:00:00 AM EDT eCW1 ([facility]) Zolpidem tartrate 5 MG Oral Tablet [Ambien] 03/12/2021 12:00:00 AM EDT eCW1 ([facility]) Zolpidem tartrate 5 MG Oral Tablet [Ambien] 03/12/2021 12:00:00 AM EDT eCW1 ([facility]) Zolpidem tartrate 5 MG Oral Tablet [Ambien] 03/12/2021 12:00:00 AM EDT eCW1 ([facility]) Zolpidem tartrate 5 MG Oral Tablet [Ambien] 03/12/2021 12:00:00 AM EDT eCW1 ([facility]) Aspirin 81 MG Delayed Release Oral Tablet 03/12/2021 12:00:00 AM ED T eCW1 ([facility]) Zolpidem tartrate 5 MG Oral Tablet [Ambien] 03/12/2021 12:00:00 AM EDT eCW1 ([facility]) Aspirin 81 MG Delayed Release Oral Tablet 03/12/2021 12:00:00 AM ED T eCW1 ([facility]) 8 HR Acetaminophen 650 MG Extended Release Oral Tablet 01/24/2021 12:00:00 AM EDT eCW1 ([facility]) 8 HR Acetaminophen 650 MG Extended Release Oral Tablet 01/24/2021 12:00:00 AM EDT eCW1 ([facility]) 8 HR Acetaminophen 650 MG Extended Release Oral Tablet 01/24/2021 12:00:00 AM EDT eCW1 ([facility]) 8 HR Acetaminophen 650 MG Extended Release Oral Tablet 01/24/2021 12:00:00 AM EDT eCW1 ([facility]) 8 HR Acetaminophen 650 MG Extended Release Oral Tablet 01/24/2021 12:00:00 AM EDT eCW1 ([facility]) 8 HR Acetaminophen 650 MG Extended Release Oral Tablet 01/24/2021 12:00:00 AM EDT eCW1 ([facility]) Acetaminophen 325 MG Oral Tablet [Tylenol] 01/23/2021 12:00:00 AM E DT eCW1 ([facility]) Acetaminophen 325 MG Oral Tablet [Tylenol] 01/23/2021 12:00:00 AM E DT eCW1 ([facility]) Acetaminophen 325 MG Oral Tablet [Tylenol] 01/23/2021 12:00:00 AM E DT eCW1 ([facility]) Acetaminophen 325 MG Oral Tablet [Tylenol] 01/23/2021 12:00:00 AM E DT eCW1 ([facility]) Acetaminophen 325 MG Oral Tablet [Tylenol] 01/23/2021 12:00:00 AM E DT eCW1 ([facility]) Acetaminophen 325 MG Oral Tablet [Tylenol] 01/23/2021 12:00:00 AM E DT eCW1 ([facility]) Acetaminophen 325 MG Oral Tablet [Tylenol] 01/23/2021 12:00:00 AM E DT eCW1 ([facility]) Trazodone Hydrochloride 50 MG Oral Tablet 01/22/2021 12:00:00 AM ED T eCW1 ([facility]) Trazodone Hydrochloride 50 MG Oral Tablet 01/22/2021 12:00:00 AM ED T eCW1 ([facility]) Trazodone Hydrochloride 50 MG Oral Tablet 01/22/2021 12:00:00 AM ED T eCW1 ([facility]) Trazodone Hydrochloride 50 MG Oral Tablet 01/22/2021 12:00:00 AM ED T eCW1 ([facility]) Trazodone Hydrochloride 50 MG Oral Tablet 01/22/2021 12:00:00 AM ED T eCW1 ([facility]) Trazodone Hydrochloride 50 MG Oral Tablet 01/22/2021 12:00:00 AM ED T eCW1 ([facility]) Trazodone Hydrochloride 50 MG Oral Tablet 01/22/2021 12:00:00 AM ED T eCW1 ([facility]) POLYETHYLENE GLYCOL 3350 142 MG/ML Oral Solution [Celeste lax] 01/01/2021 12:00:00 AM EST eCW1 ([facility]) POLYETHYLENE GLYCOL 3350 142 MG/ML Oral Solution [Celeste lax] 01/01/2021 12:00:00 AM EST eCW1 ([facility]) POLYETHYLENE GLYCOL 3350 142 MG/ML Oral Solution [Celeste lax] 01/01/2021 12:00:00 AM EST eCW1 ([facility]) POLYETHYLENE GLYCOL 3350 142 MG/ML Oral Solution [Celeste lax] 01/01/2021 12:00:00 AM EST eCW1 ([facility]) POLYETHYLENE GLYCOL 3350 142 MG/ML Oral Solution [Celeste lax] 01/01/2021 12:00:00 AM EST eCW1 ([facility]) POLYETHYLENE GLYCOL 3350 142 MG/ML Oral Solution [Celeste lax] 01/01/2021 12:00:00 AM EST eCW1 ([facility]) POLYETHYLENE GLYCOL 3350 142 MG/ML Oral Solution [Celeste lax] 01/01/2021 12:00:00 AM EST eCW1 ([facility]) POLYETHYLENE GLYCOL 3350 142 MG/ML Oral Solution [Celeste lax] 01/01/2021 12:00:00 AM EST eCW1 ([facility]) POLYETHYLENE GLYCOL 3350 142 MG/ML Oral Solution [Celeste lax] 01/01/2021 12:00:00 AM EST eCW1 ([facility]) POLYETHYLENE GLYCOL 3350 142 MG/ML Oral Solution [Celeste lax] 01/01/2021 12:00:00 AM EST eCW1 ([facility]) POLYETHYLENE GLYCOL 3350 142 MG/ML Oral Solution [Celeste lax] 01/01/2021 12:00:00 AM EST eCW1 ([facility]) POLYETHYLENE GLYCOL 3350 142 MG/ML Oral Solution [Celeste lax] 01/01/2021 12:00:00 AM EST eCW1 ([facility]) POLYETHYLENE GLYCOL 3350 142 MG/ML Oral Solution [Celeste lax] 01/01/2021 12:00:00 AM EST eCW1 ([facility]) POLYETHYLENE GLYCOL 3350 142 MG/ML Oral Solution [Celeste lax] 01/01/2021 12:00:00 AM EST eCW1 ([facility]) POLYETHYLENE GLYCOL 3350 142 MG/ML Oral Solution [Celeste lax] 01/01/2021 12:00:00 AM EST eCW1 ([facility]) POLYETHYLENE GLYCOL 3350 142 MG/ML Oral Solution [Celeste lax] 01/01/2021 12:00:00 AM EST eCW1 ([facility]) POLYETHYLENE GLYCOL 3350 142 MG/ML Oral Solution [Celeste lax] 01/01/2021 12:00:00 AM EST eCW1 ([facility]) POLYETHYLENE GLYCOL 3350 142 MG/ML Oral Solution [Celeste lax] 01/01/2021 12:00:00 AM EST eCW1 ([facility]) POLYETHYLENE GLYCOL 3350 142 MG/ML Oral Solution [Celeste lax] 01/01/2021 12:00:00 AM EST eCW1 ([facility]) POLYETHYLENE GLYCOL 3350 142 MG/ML Oral Solution [Celeste lax] 01/01/2021 12:00:00 AM EST eCW1 ([facility]) May Have - 12/24/2020 12:00:00 AM EST e CW1 ([facility]) May Have - 12/24/2020 12:00:00 AM EST e CW1 ([facility]) May Have - 12/24/2020 12:00:00 AM EST e CW1 ([facility]) May Have - 12/24/2020 12:00:00 AM EST e CW1 ([facility]) May Have - 12/24/2020 12:00:00 AM EST e CW1 ([facility]) May Have - 12/24/2020 12:00:00 AM EST e CW1 ([facility]) May Have - 12/24/2020 12:00:00 AM EST e CW1 ([facility]) May Have 1 11/30/2020 12:00:00 AM EST e CW1 ([facility]) May Have 11/30/2020 12:00:00 AM EST e CW1 ([facility]) May Have 1 11/30/2020 12:00:00 AM EST e CW1 ([facility]) May Have 11/30/2020 12:00:00 AM EST e CW1 ([facility]) May Have 1 11/30/2020 12:00:00 AM EST e CW1 ([facility]) May Have 11/30/2020 12:00:00 AM EST e CW1 ([facility]) May Have 11/30/2020 12:00:00 AM EST e CW1 ([facility]) May Have 11/30/2020 12:00:00 AM EST e CW1 ([facility]) May Have 11/30/2020 12:00:00 AM EST e CW1 ([facility]) May Have 11/30/2020 12:00:00 AM EST e CW1 ([facility]) BD AutoShield Duo 30G X 5 MM 11/13/2020 12:00:00 AM EST eCW1 ([facility]) BD AutoShield Duo 30G X 5 MM 11/13/2020 12:00:00 AM EST eCW1 ([facility]) BD AutoShield Duo 30G X 5 MM 11/13/2020 12:00:00 AM EST eCW1 ([facility]) BD AutoShield Duo 30G X 5 MM 11/13/2020 12:00:00 AM EST eCW1 ([facility]) BD AutoShield Duo 30G X 5 MM 11/13/2020 12:00:00 AM EST eCW1 ([facility]) BD AutoShield Duo 30G X 5 MM 11/13/2020 12:00:00 AM EST eCW1 ([facility]) BD AutoShield Duo 30G X 5 MM 11/13/2020 12:00:00 AM EST eCW1 ([facility]) BD AutoShield Duo 30G X 5 MM 11/13/2020 12:00:00 AM EST eCW1 ([facility]) BD AutoShield Duo 30G X 5 MM 11/13/2020 12:00:00 AM EST eCW1 ([facility]) BD AutoShield Duo 30G X 5 MM 11/13/2020 12:00:00 AM EST eCW1 ([facility]) BD AutoShield Duo 30G X 5 MM 11/13/2020 12:00:00 AM EST eCW1 ([facility]) BD AutoShield Duo 30G X 5 MM 11/13/2020 12:00:00 AM EST eCW1 ([facility]) BD AutoShield Duo 30G X 5 MM 11/13/2020 12:00:00 AM EST eCW1 ([facility]) Warfarin Sodium 5 MG Oral Tablet 11/09/2020 12:00:00 AM EST eCW1 ([facility]) Warfarin Sodium 5 MG Oral Tablet 11/09/2020 12:00:00 AM EST eCW1 ([facility]) Warfarin Sodium 5 MG Oral Tablet 11/09/2020 12:00:00 AM EST eCW1 ([facility]) Warfarin Sodium 5 MG Oral Tablet 11/09/2020 12:00:00 AM EST eCW1 ([facility]) Warfarin Sodium 5 MG Oral Tablet 11/09/2020 12:00:00 AM EST eCW1 ([facility]) Warfarin Sodium 5 MG Oral Tablet 11/09/2020 12:00:00 AM EST eCW1 ([facility]) Warfarin Sodium 5 MG Oral Tablet 11/09/2020 12:00:00 AM EST eCW1 ([facility]) Warfarin Sodium 5 MG Oral Tablet 11/09/2020 12:00:00 AM EST eCW1 ([facility]) Warfarin Sodium 5 MG Oral Tablet 11/09/2020 12:00:00 AM EST eCW1 ([facility]) Warfarin Sodium 5 MG Oral Tablet 11/09/2020 12:00:00 AM EST eCW1 ([facility]) Warfarin Sodium 5 MG Oral Tablet 11/09/2020 12:00:00 AM EST eCW1 ([facility]) Warfarin Sodium 5 MG Oral Tablet 11/09/2020 12:00:00 AM EST eCW1 ([facility]) Warfarin Sodium 5 MG Oral Tablet 11/09/2020 12:00:00 AM EST eCW1 ([facility]) Warfarin Sodium 5 MG Oral Tablet 11/09/2020 12:00:00 AM EST eCW1 ([facility]) Warfarin Sodium 5 MG Oral Tablet 11/09/2020 12:00:00 AM EST eCW1 ([facility]) Warfarin Sodium 5 MG Oral Tablet 11/09/2020 12:00:00 AM EST eCW1 ([facility]) Warfarin Sodium 5 MG Oral Tablet 11/09/2020 12:00:00 AM EST eCW1 ([facility]) Warfarin Sodium 5 MG Oral Tablet 11/09/2020 12:00:00 AM EST eCW1 ([facility]) Warfarin Sodium 5 MG Oral Tablet 11/09/2020 12:00:00 AM EST eCW1 ([facility]) Warfarin Sodium 5 MG Oral Tablet 11/09/2020 12:00:00 AM EST eCW1 ([facility]) Warfarin Sodium 5 MG Oral Tablet 11/09/2020 12:00:00 AM EST eCW1 ([facility]) Warfarin Sodium 5 MG Oral Tablet 11/09/2020 12:00:00 AM EST eCW1 ([facility]) Warfarin Sodium 5 MG Oral Tablet 11/09/2020 12:00:00 AM EST eCW1 ([facility]) Warfarin Sodium 5 MG Oral Tablet 11/09/2020 12:00:00 AM EST eCW1 ([facility]) Warfarin Sodium 5 MG Oral Tablet 11/09/2020 12:00:00 AM EST eCW1 ([facility]) Warfarin Sodium 5 MG Oral Tablet 11/09/2020 12:00:00 AM EST eCW1 ([facility]) Warfarin Sodium 5 MG Oral Tablet 11/09/2020 12:00:00 AM EST eCW1 ([facility]) Warfarin Sodium 5 MG Oral Tablet 10/08/2020 12:00:00 AM EST eCW1 ([facility]) Warfarin Sodium 5 MG Oral Tablet 10/08/2020 12:00:00 AM EST eCW1 ([facility]) Warfarin Sodium 5 MG Oral Tablet 10/08/2020 12:00:00 AM EST eCW1 ([facility]) Warfarin Sodium 5 MG Oral Tablet 10/08/2020 12:00:00 AM EST eCW1 ([facility]) Warfarin Sodium 5 MG Oral Tablet 10/08/2020 12:00:00 AM EST eCW1 ([facility]) Warfarin Sodium 5 MG Oral Tablet 10/08/2020 12:00:00 AM EST eCW1 ([facility]) Warfarin Sodium 5 MG Oral Tablet 10/05/2020 12:00:00 AM EST eCW1 ([facility]) Warfarin Sodium 5 MG Oral Tablet 10/05/2020 12:00:00 AM EST eCW1 ([facility]) Tylenol Extra Strength 500 MG 09/19/2020 12:00:00 AM EST eCW1 ([facility]) Tylenol Extra Strength 500 MG 09/19/2020 12:00:00 AM EST eCW1 ([facility]) Tylenol Extra Strength 500 MG 09/19/2020 12:00:00 AM EST eCW1 ([facility]) Tylenol Extra Strength 500 MG 09/19/2020 12:00:00 AM EST eCW1 ([facility]) Menthol 100 MG/ML / methyl salicylate 150 MG/ML Topica l Cream 09/17/2020 12:00:00 AM EST eCW1 ([facility]) Menthol 100 MG/ML / methyl salicylate 150 MG/ML Topica l Cream 09/17/2020 12:00:00 AM EST eCW1 ([facility]) Menthol 100 MG/ML / methyl salicylate 150 MG/ML Topica l Cream 09/17/2020 12:00:00 AM EST eCW1 ([facility]) Menthol 100 MG/ML / methyl salicylate 150 MG/ML Topica l Cream 09/17/2020 12:00:00 AM EST eCW1 ([facility]) Warfarin Sodium 7.5 MG Oral Tablet 09/11/2020 12:00:00 AM EST eCW1 ([facility]) Warfarin Sodium 7.5 MG Oral Tablet 09/11/2020 12:00:00 AM EST eCW1 ([facility]) Warfarin Sodium 7.5 MG Oral Tablet 09/11/2020 12:00:00 AM EST eCW1 ([facility]) Warfarin Sodium 7.5 MG Oral Tablet 09/11/2020 12:00:00 AM EST eCW1 ([facility]) Warfarin Sodium 7.5 MG Oral Tablet 09/11/2020 12:00:00 AM EST eCW1 ([facility]) Warfarin Sodium 7.5 MG Oral Tablet 09/11/2020 12:00:00 AM EST eCW1 ([facility]) Warfarin Sodium 7.5 MG Oral Tablet 09/11/2020 12:00:00 AM EST eCW1 ([facility]) Warfarin Sodium 7.5 MG Oral Tablet 09/11/2020 12:00:00 AM EST eCW1 ([facility]) Warfarin Sodium 7.5 MG Oral Tablet 09/11/2020 12:00:00 AM EST eCW1 ([facility]) 3 ML Insulin Glargine 100 UNT/ML Pen Injector [Lantus] 08/21/2020 12:00:00 AM EDT eCW1 ([facility]) 3 ML Insulin Glargine 100 UNT/ML Pen Injector [Lantus] 08/21/2020 12:00:00 AM EDT eCW1 ([facility]) 3 ML Insulin Glargine 100 UNT/ML Pen Injector [Lantus] 08/21/2020 12:00:00 AM EDT eCW1 ([facility]) 3 ML Insulin Glargine 100 UNT/ML Pen Injector [Lantus] 08/21/2020 12:00:00 AM EDT eCW1 ([facility]) 3 ML Insulin Glargine 100 UNT/ML Pen Injector [Lantus] 08/21/2020 12:00:00 AM EDT eCW1 ([facility]) 3 ML Insulin Glargine 100 UNT/ML Pen Injector [Lantus] 08/21/2020 12:00:00 AM EDT eCW1 ([facility]) 3 ML Insulin Glargine 100 UNT/ML Pen Injector [Lantus] 08/21/2020 12:00:00 AM EDT eCW1 ([facility]) 3 ML Insulin Glargine 100 UNT/ML Pen Injector [Lantus] 08/21/2020 12:00:00 AM EDT eCW1 ([facility]) 3 ML Insulin Glargine 100 UNT/ML Pen Injector [Lantus] 08/21/2020 12:00:00 AM EDT eCW1 ([facility]) 3 ML Insulin Glargine 100 UNT/ML Pen Injector [Lantus] 08/21/2020 12:00:00 AM EDT eCW1 ([facility]) 3 ML Insulin Glargine 100 UNT/ML Pen Injector [Lantus] 08/21/2020 12:00:00 AM EDT eCW1 ([facility]) 3 ML Insulin Glargine 100 UNT/ML Pen Injector [Lantus] 08/21/2020 12:00:00 AM EDT eCW1 ([facility]) 3 ML Insulin Glargine 100 UNT/ML Pen Injector [Lantus] 08/21/2020 12:00:00 AM EDT eCW1 ([facility]) 3 ML Insulin Glargine 100 UNT/ML Pen Injector [Lantus] 08/21/2020 12:00:00 AM EDT eCW1 ([facility]) 3 ML Insulin Glargine 100 UNT/ML Pen Injector [Lantus] 08/21/2020 12:00:00 AM EDT eCW1 ([facility]) 3 ML Insulin Glargine 100 UNT/ML Pen Injector [Lantus] 08/21/2020 12:00:00 AM EDT eCW1 ([facility]) 3 ML Insulin Glargine 100 UNT/ML Pen Injector [Lantus] 08/21/2020 12:00:00 AM EDT eCW1 ([facility]) 3 ML Insulin Glargine 100 UNT/ML Pen Injector [Lantus] 08/21/2020 12:00:00 AM EDT eCW1 ([facility]) 3 ML Insulin Glargine 100 UNT/ML Pen Injector [Lantus] 08/21/2020 12:00:00 AM EDT eCW1 ([facility]) 3 ML Insulin Glargine 100 UNT/ML Pen Injector [Lantus] 08/21/2020 12:00:00 AM EDT eCW1 ([facility]) 3 ML Insulin Glargine 100 UNT/ML Pen Injector [Lantus] 08/21/2020 12:00:00 AM EDT eCW1 ([facility]) 3 ML Insulin Glargine 100 UNT/ML Pen Injector [Lantus] 08/21/2020 12:00:00 AM EDT eCW1 ([facility]) sitagliptin 50 MG Oral Tablet [Januvia] 08/20/2020 12:00:00 AM EDT eCW1 ([facility]) BD Ultra-fine Pen [place] 32G 4mm 08/20/2020 12:00:00 AM EDT eCW1 ([facility]) BD Ultra-fine Pen [place] 32G 4mm 08/20/2020 12:00:00 AM EDT eCW1 ([facility]) sitagliptin 50 MG Oral Tablet [Januvia] 08/20/2020 12:00:00 AM EDT eCW1 ([facility]) BD Ultra-fine Pen [place] 32G 4mm 08/20/2020 12:00:00 AM EDT eCW1 ([facility]) sitagliptin 50 MG Oral Tablet [Novuvia] 08/20/2020 12:00:00 AM EDT eCW1 ([facility]) BD Ultra-fine Pen [place] 32G 4mm 08/20/2020 12:00:00 AM EDT eCW1 ([facility]) sitagliptin 50 MG Oral Tablet [Novuvia] 08/20/2020 12:00:00 AM EDT eCW1 ([facility]) BD Ultra-fine Pen [place] 32G 4mm 08/20/2020 12:00:00 AM EDT eCW1 ([facility]) sitagliptin 50 MG Oral Tablet [Novuvia] 08/20/2020 12:00:00 AM EDT eCW1 ([facility])
[2021-09-16] MEDS ORDERED: HOME MED LIST COMPLETE! XX SCH (20:15)
--- OUTSIDE RECORDS SUMMARY | 2021-09-16 20:16 | CCD ---
Author Author [facility] Organization [facility] Address Unknown Phone Unavailable Care Team Providers Care Manager Of Warehouse Name Role Phone Glenna Sellers MD Unavailable [...] Unavailable Marlo, S Noé MD Unavailable Unavailable Malro, S Noé Unavailable Unavailable Marlo, S Noé [...] S Noé YOO Unavailable Unavailable Hegard, Josselyn DISPATCHER REFINERY Unavailable Unavailable Hegard, Josselyn DISPATCHER REFINERY Unavailable Unavailable Hegard, Josselyn DISPATCHER REFINERY Unavailable Unavailable Hegard, Josselyn DISPATCHER REFINERY Unavailable Unavailable Hegard, Josselyn DISPATCHER REFINERY Unavailable Unavailable Hegard, Josselyn DISPATCHER REFINERY Unavailable Unavailable Hegard, Josselyn DISPATCHER REFINERY Unavailable Unavailable Hegard, Josselyn DISPATCHER REFINERY Unavailable Unavailable Hegard, Josselyn DISPATCHER REFINERY Unavailable Unavailable Hegard, Josselyn DISPATCHER REFINERY Unavailable Unavailable Hegard, Josselyn DISPATCHER REFINERY Unavailable Unavailable Hegard, Josselyn DISPATCHER REFINERY Unavailable Unavailable Hegard, Josselyn DISPATCHER REFINERY Unavailable Unavailable Hegard, Josselyn DISPATCHER REFINERY Unavailable Unavailable Hegard, Josselyn DISPATCHER REFINERY Unavailable Unavailable Hegard, Josselyn DISPATCHER REFINERY Unavailable Unavailable Hegard, Josselyn DISPATCHER REFINERY Unavailable Unavailable Re-disclosure Warning The records that [...] is protected by Article 27-F of the [facility] Public Health law. If you continue you may have access to information: Regarding HIV / AIDS; Provided by facilities licensed or operated by the [facility] Office of Mental Health; or Provided by the [facility] Office for People With Developmental Disabilities. If such information is present, then the following [facility] mandated warning applies: This information has [...] law may result in a fine or long-term sentence or both. A general authorization for the release of medical or other information is NOT sufficient authorization for further disc losure. Family History Family Member Name Family Member Gender Family Member Status Date o f Status Description Data Source(s) Unknown Male Problem MEDENT ([facility]) Unknown Unknown Problem MEDENT ([facility], ) Encounters Encounter Providers Location Date Indications Data Source(s ) Office Visit, Est Pt., Level 4 PC [address] [place] [address] 09/09/2021 12:00:00 AM EST eCW1 ([facility]) Unknown [address] [facility] [address] 09/04/2021 12:00:00 AM EDT eCW1 ([facility] hospital) Unknown [address] [facility] [address] 09/03/2021 12:00:00 AM EDT eCW1 ([facility]) [place] [address] [facility] [address] 08/29/2021 12:00:00 AM EDT eCW1 ([facility]) [place] [address] [facility] [address] 08/27/2021 12:00:00 AM EDT eCW1 ([facility]) [place] [address] [facility] [address] 08/26/2021 12:00:00 AM EDT eCW1 ([facility]) Unknown [address] [facility] [address] 08/07/2021 12:00:00 AM EDT eCW1 ([facility]) [place] [address] [facility] [address] 08/06/2021 12:00:00 AM EDT eCW1 ([facility]) Unknown [address] [facility] [place] [address] 07/05/2021 12:00:00 AM EDT eCW1 ([facility]) Unknown [address] [facility] [place] [address] 07/03/2021 12:00:00 AM EDT eCW1 ([facility]) [place] [address] [facility] [address] 07/02/2021 12:00:00 AM EDT eCW1 ([facility]) Unknown [address] [facility] [place] [address] 06/17/2021 12:00:00 AM EDT eCW1 ([facility]) Outpatient Attender: Noé Sellers MD Main Office 06/06/2021 11:00:00 AM EDT MEDENT ([facility]) (PT/INR TV) Telephone Encounter Visit [address] [place] [address] 06/05/2021 12:00:00 AM EDT eCW1 ([facility]) Unknown [address] [facility] [place] [address] 06/03/2021 12:00:00 AM EDT eCW1 ([facility]) Outpatient Attender: Josselyn GALLEGOP Main Office 0 05/30/2021 11:15:00 AM EDT MEDENT ([facility]) Office Visit, Est Pt., Level 4 PC [address] [place] [address] 05/24/2021 12:00:00 AM EDT eCW1 ([facility]) Unknown [address] [facility] [address] 05/09/2021 12:00:00 AM EDT eCW1 ([facility] Office Visit, Est Pt., Level 3 PC [address] [place] [address] 04/15/2021 12:00:00 AM EDT eCW1 ([facility]) Unknown [address] [facility] [address] 04/10/2021 12:00:00 AM EDT eCW1 ([facility]) Unknown [address] [facility] [address] 04/10/2021 12:00:00 AM EDT eCW1 ([facility]) Unknown [address] [facility] [address] 03/29/2021 12:00:00 AM EDT eCW1 ([facility]) Office Visit, Est Pt., Level 4 PC [address] [place] [address] 03/12/2021 12:00:00 AM EDT eCW1 ([facility]) Unknown [address] [facility] [address] 03/05/2021 12:00:00 AM EDT eCW1 ([facility]) Unknown [address] [place] [address] 03/05/2021 12:00:00 AM EDT eCW1 ([facility]) Unknown [address] [facility] [place] [address] 03/05/2021 12:00:00 AM EDT eCW1 ([facility]) [place] [address] [facility] [address] 02/05/2021 12:00:00 AM EDT eCW1 ([facility]) Unknown [address] [facility] [address] 01/24/2021 12:00:00 AM EDT eCW1 ([facility]) Unknown [address] [facility] [address] 01/23/2021 12:00:00 AM EDT eCW1 ([facility]) Office Visit, Est Pt., Level 4 PC [address] [place] [address] 01/22/2021 12:00:00 AM EDT eCW1 ([facility]) Unknown [address] [facility] [address] 01/11/2021 12:00:00 AM EST eCW1 ([facility]) Unknown [address] [facility] [address] 01/07/2021 12:00:00 AM EST eCW1 ([facility]) Unknown [address] [facility] [address] 01/04/2021 12:00:00 AM EST eCW1 ([facility]) Unknown [address] [facility] [address] 01/02/2021 12:00:00 AM EST eCW1 ([facility]) Unknown [address] [facility] [address] 01/01/2021 12:00:00 AM EST eCW1 ([facility]) Unknown [address] [facility] [address] 12/31/2020 12:00:00 AM EST eCW1 ([facility]) Unknown [address] [facility] [address] 12/24/2020 12:00:00 AM EST eCW1 ([facility]) Unknown [address] [facility] [address] 12/17/2020 12:00:00 AM EST eCW1 ([facility]) Unknown [address] [facility] [address] 12/07/2020 12:00:00 AM EST eCW1 ([facility]) Unknown [address] [facility] [address] 11/30/2020 12:00:00 AM EST eCW1 ([facility]) Unknown [address] [facility] [address] 11/23/2020 12:00:00 AM EST eCW1 ([facility]) Unknown [address] [facility] [address] 11/14/2020 12:00:00 AM EST eCW1 ([facility]) Unknown [address] [facility] [place] [address] 11/13/2020 12:00:00 AM EST eCW1 ([facility]) Unknown [address] [facility] [address] 11/09/2020 12:00:00 AM EST eCW1 ([facility]) Unknown [address] [facility] [place] [address] 11/08/2020 12:00:00 AM EST eCW1 ([facility]) Office Visit, Est Pt., Level 4 PC [address] [place] [address] 11/07/2020 12:00:00 AM EST eCW1 ([facility]) Unknown [address] [facility] [place] [address] 10/22/2020 12:00:00 AM EST eCW1 ([facility]) Unknown [address] [facility] [place] [address] 10/12/2020 12:00:00 AM EST eCW1 ([facility]) Unknown [address] [facility] [place] [address] 10/12/2020 12:00:00 AM EST eCW1 ([facility]) Unknown [address] [facility] [place] [address] 10/09/2020 12:00:00 AM EST eCW1 ([facility]) Unknown [address] [facility] [place] [address] 10/08/2020 12:00:00 AM EST eCW1 ([facility]) Unknown [address] [facility] [place] [address] 10/08/2020 12:00:00 AM EST eCW1 ([facility]) Unknown [address] [facility] [place] [address] 10/05/2020 12:00:00 AM EST eCW1 ([facility]) Unknown [address] [facility] [place] [address] 10/04/2020 12:00:00 AM EST eCW1 ([facility]) Unknown [address] [facility] [place] [address] 09/24/2020 12:00:00 AM EST [facility]CW[facility] [place] [address] [facility] [place] [address] 09/21/2020 12:00:00 AM EST eCW1 [facility]) Unknown [address] [facility] [place] [address] 09/19/2020 12:00:00 AM EST eCW1 ([facility]) Office Visit, Est Pt., Level 4 PC [address] [place] [address] 09/17/2020 12:00:00 AM EST eCW1 ([facility]) Unknown [address] [facility] [place] [address] 09/11/2020 12:00:00 AM EST eCW1 ([facility]) Unknown [address] [facility] [place] [address] 08/22/2020 12:00:00 AM EDT eCW1 ([facility]) [place] [address] [facility] [place] [address] 08/21/2020 12:00:00 AM EDT eCW1 ([facility]) [place] [address] [facility] [place] [address] 08/21/2020 12:00:00 AM EDT eCW1 ([facility]) Office Visit, Est Pt., Level 4 PC [address] [place] [address] 08/20/2020 12:00:00 AM EDT eCW1 ([facility]) Unknown [address] [facility] [place] [address] 08/17/2020 12:00:00 AM EDT eCW1 ([facility]) Unknown [address] [facility] [place] [address] 08/15/2020 12:00:00 AM EDT eCW1 ([facility]) Unknown [address] [facility] [place] [address] 08/15/2020 12:00:00 AM EDT eCW1 ([facility]) Unknown [address] [facility] [address] 08/13/2020 12:00:00 AM EDT eCW1 ([facility]) Unknown [address] [facility] [place] [address] 08/08/2020 12:00:00 AM EDT eCW1 ([facility]) Unknown [address] [facility] [place] [address] 08/06/2020 12:00:00 AM EDT eCW1 ([facility]) Unknown [address] [facility] [place] [address] 08/02/2020 12:00:00 AM EDT eCW1 ([facility]) Immunizations Vaccine Date Status Description Data Source(s) COVID-19 VACCINE Moderna 04/24/2021 12:00:00 AM EDT completed [facility] Vaccine Series Complete: YESThis Data wa s Submitted to [facility] [employer]. COVID-19 VACCINE Moderna 03/21/2021 12:00:00 AM EDT completed [facility] Vaccine Series Complete: NOThis Data was Submitted to [facility] [employer]. INFLUENZA VIRUS VACCINE QUADRIVAL [id number](6 MOS AND UP)/PF 08/16/2020 12:00:00 AM EDT completed [facility] Medications Medication Brand Name Start Date Product Form Dose Route Admi nistrative Instructions Pharmacy Instructions Status Indications Reaction Description Data Source(s) Zolpidem tartrate 5 MG Oral Tablet [Ambien] Ambien 5 MG Ambi en 5 MG 09/03/2021 12:00:00 AM EDT 1.0 {tablet_at_bedtime} active Ambien 5 MG eCW1 ([facility]) Zolpidem tartrate 5 MG Oral Tablet [Ambien] Ambien 5 MG Ambi en 5 MG 09/03/2021 12:00:00 AM EDT 1.0 {tablet_at_bedtime} active Ambien 5 MG eCW1 ([facility]) atorvastatin 80 MG Oral Tablet Atorvastatin Calcium 80 MG Atorvastatin Calcium 80 MG 08/28/2021 12:00:00 AM EDT 1.0 {tablet} activ e Atorvastatin Calcium 80 MG eCW1 ([facility]) atorvastatin 80 MG Oral Tablet Atorvastatin Calcium 80 MG Atorvastatin Calcium 80 MG 08/28/2021 12:00:00 AM EDT 1.0 {tablet} activ e Atorvastatin Calcium 80 MG eCW1 ([facility]) atorvastatin 80 MG Oral Tablet Atorvastatin Calcium 80 MG Atorvastatin Calcium 80 MG 08/28/2021 12:00:00 AM EDT 1.0 {tablet} activ e Atorvastatin Calcium 80 MG eCW1 ([facility]) atorvastatin 80 MG Oral Tablet Atorvastatin Calcium 80 MG Atorvastatin Calcium 80 MG 08/28/2021 12:00:00 AM EDT 1.0 {tablet} activ e Atorvastatin Calcium 80 MG eCW1 ([facility]) atorvastatin 80 MG Oral Tablet Atorvastatin Calcium 80 MG Atorvastatin Calcium 80 MG 08/28/2021 12:00:00 AM EDT 1.0 {tablet} activ e Atorvastatin Calcium 80 MG eCW1 ([facility]) Zolpidem tartrate 5 MG Oral Tablet [Ambien] Ambien 5 MG Ambi en 5 MG 08/06/2021 12:00:00 AM EDT 1.0 {tablet_at_bedtime} active Ambien 5 MG eCW1 ([facility]) Zolpidem tartrate 5 MG Oral Tablet [Ambien] Ambien 5 MG Ambi en 5 MG 08/06/2021 12:00:00 AM EDT 1.0 {tablet_at_bedtime} active Ambien 5 MG eCW1 ([facility]) Zolpidem tartrate 5 MG Oral Tablet [Ambien] Ambien 5 MG Ambi en 5 MG 08/06/2021 12:00:00 AM EDT 1.0 {tablet_at_bedtime} active Ambien 5 MG eCW1 ([facility]) Zolpidem tartrate 5 MG Oral Tablet [Ambien] Ambien 5 MG Ambi en 5 MG 08/06/2021 12:00:00 AM EDT 1.0 {tablet_at_bedtime} active Ambien 5 MG eCW1 ([facility]) Zolpidem tartrate 5 MG Oral Tablet [Ambien] Ambien 5 MG Ambi en 5 MG 08/06/2021 12:00:00 AM EDT 1.0 {tablet_at_bedtime} active Ambien 5 MG eCW1 ([facility]) Suprep Bowel Prep Kit Suprep Bowel Prep Kit 07/24/2021 12:00:00 AM EDT active MEDENT ([facility]) Zolpidem tartrate 5 MG Oral Tablet [Ambien] Ambien 5 MG Ambi en 5 MG 07/05/2021 12:00:00 AM EDT 1.0 {tablet_at_bedtime} active Ambien 5 MG eCW1 ([facility]) Zolpidem tartrate 5 MG Oral Tablet [Ambien] Ambien 5 MG Ambi en 5 MG 07/05/2021 12:00:00 AM EDT 1.0 {tablet_at_bedtime} active Ambien 5 MG eCW1 ([facility]) Zolpidem tartrate 5 MG Oral Tablet [Ambien] Ambien 5 MG Ambi en 5 MG 06/03/2021 12:00:00 AM EDT 1.0 {tablet_at_bedtime} active Ambien 5 MG eCW1 ([facility]) Zolpidem tartrate 5 MG Oral Tablet [Ambien] Ambien 5 MG Ambi en 5 MG 06/03/2021 12:00:00 AM EDT 1.0 {tablet_at_bedtime} active Ambien 5 MG eCW1 ([facility]) Zolpidem tartrate 5 MG Oral Tablet [Ambien] Ambien 5 MG Ambi en 5 MG 06/03/2021 12:00:00 AM EDT 1.0 {tablet_at_bedtime} active Ambien 5 MG eCW1 ([facility]) Zolpidem tartrate 5 MG Oral Tablet [Ambien] Ambien 5 MG Ambi en 5 MG 06/03/2021 12:00:00 AM EDT 1.0 {tablet_at_bedtime} active Ambien 5 MG eCW1 ([facility]) Hydroxyzine Hydrochloride 10 MG Oral Tablet Hydroxyzine HCL 05/30/2021 12:00:00 AM EDT ORAL active [facility]ENT ([facility]) tramadol hydrochloride 50 MG Oral Tablet traMADol HCl 50 MG traMADol HCl 50 MG 04/10/2021 12:00:00 AM EDT 1.0 {tablet_as_needed} active traMADol HCl 50 MG eCW1 ([facility]) tramadol hydrochloride 50 MG Oral Tablet traMADol HCl 50 MG traMADol HCl 50 MG 04/10/2021 12:00:00 AM EDT 1.0 {tablet_as_needed} active traMADol HCl 50 MG eCW1 ([facility]) tramadol hydrochloride 50 MG Oral Tablet traMADol HCl 50 MG traMADol HCl 50 MG 04/10/2021 12:00:00 AM EDT 1.0 {tablet_as_needed} active traMADol HCl 50 MG eCW1 ([facility]) tramadol hydrochloride 50 MG Oral Tablet traMADol HCl 50 MG traMADol HCl 50 MG 04/10/2021 12:00:00 AM EDT 1.0 {tablet_as_needed} active traMADol HCl 50 MG eCW1 ([facility]) tramadol hydrochloride 50 MG Oral Tablet traMADol HCl 50 MG traMADol HCl 50 MG 04/10/2021 12:00:00 AM EDT 1.0 {tablet_as_needed} active traMADol HCl 50 MG eCW1 ([facility]) tramadol hydrochloride 50 MG Oral Tablet traMADol HCl 50 MG traMADol HCl 50 MG 04/10/2021 12:00:00 AM EDT 1.0 {tablet_as_needed} active traMADol HCl 50 MG eCW1 ([facility]) tramadol hydrochloride 50 MG Oral Tablet traMADol HCl 50 MG traMADol HCl 50 MG 04/10/2021 12:00:00 AM EDT 1.0 {tablet_as_needed} active traMADol HCl 50 MG eCW1 ([facility]) tramadol hydrochloride 50 MG Oral Tablet traMADol HCl 50 MG traMADol HCl 50 MG 04/10/2021 12:00:00 AM EDT 1.0 {tablet_as_needed} active traMADol HCl 50 MG eCW1 ([facility]) tramadol hydrochloride 50 MG Oral Tablet traMADol HCl 50 MG traMADol HCl 50 MG 04/10/2021 12:00:00 AM EDT 1.0 {tablet_as_needed} active traMADol HCl 50 MG eCW1 ([facility]) tramadol hydrochloride 50 MG Oral Tablet traMADol HCl 50 MG traMADol HCl 50 MG 04/10/2021 12:00:00 AM EDT 1.0 {tablet_as_needed} active traMADol HCl 50 MG eCW1 ([facility]) tramadol hydrochloride 50 MG Oral Tablet traMADol HCl 50 MG traMADol HCl 50 MG 04/10/2021 12:00:00 AM EDT 1.0 {tablet_as_needed} active traMADol HCl 50 MG eCW1 ([facility]) tramadol hydrochloride 50 MG Oral Tablet traMADol HCl 50 MG traMADol HCl 50 MG 04/10/2021 12:00:00 AM EDT 1.0 {tablet_as_needed} active traMADol HCl 50 MG eCW1 ([facility]) tramadol hydrochloride 50 MG Oral Tablet traMADol HCl 50 MG traMADol HCl 50 MG 04/10/2021 12:00:00 AM EDT 1.0 {tablet_as_needed} active traMADol HCl 50 MG eCW1 ([facility]) tramadol hydrochloride 50 MG Oral Tablet traMADol HCl 50 MG traMADol HCl 50 MG 04/10/2021 12:00:00 AM EDT 1.0 {tablet_as_needed} active traMADol HCl 50 MG eCW1 ([facility]) tramadol hydrochloride 50 MG Oral Tablet traMADol HCl 50 MG traMADol HCl 50 MG 04/10/2021 12:00:00 AM EDT 1.0 {tablet_as_needed} active traMADol HCl 50 MG eCW1 ([facility]) tramadol hydrochloride 50 MG Oral Tablet traMADol HCl 50 MG traMADol HCl 50 MG 04/10/2021 12:00:00 AM EDT 1.0 {tablet_as_needed} active traMADol HCl 50 MG eCW1 ([facility]) tramadol hydrochloride 50 MG Oral Tablet traMADol HCl 50 MG traMADol HCl 50 MG 04/10/2021 12:00:00 AM EDT 1.0 {tablet_as_needed} active traMADol HCl 50 MG eCW1 ([facility]) tramadol hydrochloride 50 MG Oral Tablet traMADol HCl 50 MG traMADol HCl 50 MG 04/10/2021 12:00:00 AM EDT 1.0 {tablet_as_needed} active traMADol HCl 50 MG eCW1 ([facility]) Aspirin 81 MG Delayed Release Oral Tablet Aspirin 81 MG 03/12/2021 12:00:00 AM EDT 1.0 {tablet} active Aspirin 81 MG eCW1 ([facility]) Aspirin 81 MG Delayed Release Oral Tablet Aspirin 81 MG 03/12/2021 12:00:00 AM EDT 1.0 {tablet} active Aspirin 81 MG eCW1 ([facility]) Aspirin 81 MG Delayed Release Oral Tablet Aspirin 81 MG 03/12/2021 12:00:00 AM EDT 1.0 {tablet} active Aspirin 81 MG eCW1 ([facility]) Aspirin 81 MG Delayed Release Oral Tablet Aspirin 81 MG 03/12/2021 12:00:00 AM EDT 1.0 {tablet} active Aspirin 81 MG eCW1 ([facility]) Aspirin 81 MG Delayed Release Oral Tablet Aspirin 81 MG 03/12/2021 12:00:00 AM EDT 1.0 {tablet} active Aspirin 81 MG eCW1 ([facility]) Zolpidem tartrate 5 MG Oral Tablet [Ambien] Ambien 5 MG Ambi en 5 MG 03/12/2021 12:00:00 AM EDT 1.0 {tablet_at_bedtime} active Ambien 5 MG eCW1 ([facility]) Aspirin 81 MG Delayed Release Oral Tablet Aspirin 81 MG 03/12/2021 12:00:00 AM EDT 1.0 {tablet} active Aspirin 81 MG eCW1 ([facility]) Aspirin 81 MG Delayed Release Oral Tablet Aspirin 81 MG 03/12/2021 12:00:00 AM EDT 1.0 {tablet} active Aspirin 81 MG eCW1 ([facility]) Aspirin 81 MG Delayed Release Oral Tablet Aspirin 81 MG 03/12/2021 12:00:00 AM EDT 1.0 {tablet} active Aspirin 81 MG eCW1 ([facility]) Aspirin 81 MG Delayed Release Oral Tablet Aspirin 81 MG 03/12/2021 12:00:00 AM EDT 1.0 {tablet} active Aspirin 81 MG eCW1 ([facility]) Aspirin 81 MG Delayed Release Oral Tablet Aspirin 81 MG 03/12/2021 12:00:00 AM EDT 1.0 {tablet} active Aspirin 81 MG eCW1 ([facility]) Zolpidem tartrate 5 MG Oral Tablet [Ambien] Ambien 5 MG Ambi en 5 MG 03/12/2021 12:00:00 AM EDT 1.0 {tablet_at_bedtime} active Ambien 5 MG eCW1 ([facility]) Zolpidem tartrate 5 MG Oral Tablet [Ambien] Ambien 5 MG Ambi en 5 MG 03/12/2021 12:00:00 AM EDT 1.0 {tablet_at_bedtime} active Ambien 5 MG eCW1 ([facility]) Aspirin 81 MG Delayed Release Oral Tablet Aspirin 81 MG 03/12/2021 12:00:00 AM EDT 1.0 {tablet} active Aspirin 81 MG eCW1 ([facility]) Aspirin 81 MG Delayed Release Oral Tablet Aspirin 81 MG 03/12/2021 12:00:00 AM EDT 1.0 {tablet} active Aspirin 81 MG eCW1 ([facility]) Aspirin 81 MG Delayed Release Oral Tablet Aspirin 81 MG 03/12/2021 12:00:00 AM EDT 1.0 {tablet} active Aspirin 81 MG eCW1 ([facility]) Zolpidem tartrate 5 MG Oral Tablet [Ambien] Ambien 5 MG Ambi en 5 MG 03/12/2021 12:00:00 AM EDT 1.0 {tablet_at_bedtime} active Ambien 5 MG eCW1 ([facility]) Aspirin 81 MG Delayed Release Oral Tablet Aspirin 81 MG 03/12/2021 12:00:00 AM EDT 1.0 {tablet} active Aspirin 81 MG eCW1 ([facility]) Aspirin 81 MG Delayed Release Oral Tablet Aspirin 81 MG 03/12/2021 12:00:00 AM EDT 1.0 {tablet} active Aspirin 81 MG eCW1 ([facility]) Aspirin 81 MG Delayed Release Oral Tablet Aspirin 81 MG 03/12/2021 12:00:00 AM EDT 1.0 {tablet} active Aspirin 81 MG eCW1 ([facility]) Aspirin 81 MG Delayed Release Oral Tablet Aspirin 81 MG 03/12/2021 12:00:00 AM EDT 1.0 {tablet} active Aspirin 81 MG eCW1 ([facility]) Zolpidem tartrate 5 MG Oral Tablet [Ambien] Ambien 5 MG Ambi en 5 MG 03/12/2021 12:00:00 AM EDT 1.0 {tablet_at_bedtime} active Ambien 5 MG eCW1 ([facility]) Aspirin 81 MG Delayed Release Oral Tablet Aspirin 81 MG 03/12/2021 12:00:00 AM EDT 1.0 {tablet} active Aspirin 81 MG eCW1 ([facility]) Aspirin 81 MG Delayed Release Oral Tablet Aspirin 81 MG 03/12/2021 12:00:00 AM EDT 1.0 {tablet} active Aspirin 81 MG eCW1 ([facility]) Zolpidem tartrate 5 MG Oral Tablet [Ambien] Ambien 5 MG Ambi en 5 MG 03/12/2021 12:00:00 AM EDT 1.0 {tablet_at_bedtime} active Ambien 5 MG eCW1 ([facility]) Zolpidem tartrate 5 MG Oral Tablet [Ambien] Ambien 5 MG Ambi en 5 MG 03/12/2021 12:00:00 AM EDT 1.0 {tablet_at_bedtime} active Ambien 5 MG eCW1 ([facility] [place]) Aspirin 81 MG Delayed Release Oral Tablet Aspirin 81 MG 03/12/2021 12:00:00 AM EDT 1.0 {tablet} active Aspirin 81 MG eCW1 ([facility] [place]) 8 HR Acetaminophen 650 MG Extended Release Oral Tablet Acetaminophen ER 650 MG Acetaminophen ER 650 MG 01/24/2021 12:00:00 AM EDT active Acetaminophen ER 650 MG eCW1 ([facility] [place]) 8 HR Acetaminophen 650 MG Extended Release Oral Tablet Acetaminophen ER 650 MG Acetaminophen ER 650 MG 01/24/2021 12:00:00 AM EDT active Acetaminophen ER 650 MG eCW1 ([facility]) 8 HR Acetaminophen 650 MG Extended Release Oral Tablet Acetaminophen ER 650 MG Acetaminophen ER 650 MG 01/24/2021 12:00:00 AM EDT active Acetaminophen ER 650 MG eCW1 ([facility]) 8 HR Acetaminophen 650 MG Extended Release Oral Tablet Acetaminophen ER 650 MG Acetaminophen ER 650 MG 01/24/2021 12:00:00 AM EDT active Acetaminophen ER 650 MG eCW1 ([facility]) 8 HR Acetaminophen 650 MG Extended Release Oral Tablet Acetaminophen ER 650 MG Acetaminophen ER 650 MG 01/24/2021 12:00:00 AM EDT active Acetaminophen ER 650 MG eCW1 ([facility]) 8 HR Acetaminophen 650 MG Extended Release Oral Tablet Acetaminophen ER 650 MG Acetaminophen ER 650 MG 01/24/2021 12:00:00 AM EDT active Acetaminophen ER 650 MG eCW1 ([facility]) Acetaminophen 325 MG Oral Tablet [Tylenol] Tylenol 325 MG Ty lenol 325 MG 01/23/2021 12:00:00 AM EDT active Tylenol 325 MG eCW1 ([facility]) Acetaminophen 325 MG Oral Tablet [Tylenol] Tylenol 325 MG Ty lenol 325 MG 01/23/2021 12:00:00 AM EDT active Tylenol 325 MG eCW1 ([facility]) Acetaminophen 325 MG Oral Tablet [Tylenol] Tylenol 325 MG Ty lenol 325 MG 01/23/2021 12:00:00 AM EDT active Tylenol 325 MG eCW1 ([facility]) Acetaminophen 325 MG Oral Tablet [Tylenol] Tylenol 325 MG Ty lenol 325 MG 01/23/2021 12:00:00 AM EDT active Tylenol 325 MG eCW1 ([facility]) Acetaminophen 325 MG Oral Tablet [Tylenol] Tylenol 325 MG Ty lenol 325 MG 01/23/2021 12:00:00 AM EDT active Tylenol 325 MG eCW1 ([facility]) Acetaminophen 325 MG Oral Tablet [Tylenol] Tylenol 325 MG Ty lenol 325 MG 01/23/2021 12:00:00 AM EDT active Tylenol 325 MG eCW1 ([facility]) Acetaminophen 325 MG Oral Tablet [Tylenol] Tylenol 325 MG Ty lenol 325 MG 01/23/2021 12:00:00 AM EDT active Tylenol 325 MG eCW1 ([facility]) Trazodone Hydrochloride 50 MG Oral Tablet TraZODone HC l 50 MG TraZODone HCl 50 MG 01/22/2021 12:00:00 AM EDT 1.0 {tablet_at_bedtime_as_needed} active TraZODone HCl 50 MG eCW1 ([facility]) Trazodone Hydrochloride 50 MG Oral Tablet TraZODone HC l 50 MG TraZODone HCl 50 MG 01/22/2021 12:00:00 AM EDT 1.0 {tablet_at_bedtime_as_needed} active TraZODone HCl 50 MG eCW1 ([facility]) Trazodone Hydrochloride 50 MG Oral Tablet TraZODone HC l 50 MG TraZODone HCl 50 MG 01/22/2021 12:00:00 AM EDT 1.0 {tablet_at_bedtime_as_needed} active TraZODone HCl 50 MG eCW1 ([facility]) Trazodone Hydrochloride 50 MG Oral Tablet TraZODone HC l 50 MG TraZODone HCl 50 MG 01/22/2021 12:00:00 AM EDT 1.0 {tablet_at_bedtime_as_needed} active TraZODone HCl 50 MG eCW1 ([facility]) Trazodone Hydrochloride 50 MG Oral Tablet TraZODone HC l 50 MG TraZODone HCl 50 MG 01/22/2021 12:00:00 AM EDT 1.0 {tablet_at_bedtime_as_needed} active TraZODone HCl 50 MG eCW1 ([facility]) Trazodone Hydrochloride 50 MG Oral Tablet TraZODone HC l 50 MG TraZODone HCl 50 MG 01/22/2021 12:00:00 AM EDT 1.0 {tablet_at_bedtime_as_needed} active TraZODone HCl 50 MG eCW1 ([facility]) Trazodone Hydrochloride 50 MG Oral Tablet TraZODone HC l 50 MG TraZODone HCl 50 MG 01/22/2021 12:00:00 AM EDT 1.0 {tablet_at_bedtime_as_needed} active TraZODone HCl 50 MG eCW1 ([facility]) POLYETHYLENE GLYCOL 3350 142 MG/ML Oral Solution [Celeste lax] MiraLax 17 GM/SCOOP MiraLax 17 GM/SCOOP 01/01/2021 12:00:00 AM EST active MiraLax 17 GM/SCOOP eCW1 ([facility]) POLYETHYLENE GLYCOL 3350 142 MG/ML Oral Solution [Celeste lax] MiraLax 17 GM/SCOOP MiraLax 17 GM/SCOOP 01/01/2021 12:00:00 AM EST active MiraLax 17 GM/SCOOP eCW1 ([facility]) POLYETHYLENE GLYCOL 3350 142 MG/ML Oral Solution [Celeste lax] MiraLax 17 GM/SCOOP MiraLax 17 GM/SCOOP 01/01/2021 12:00:00 AM EST active MiraLax 17 GM/SCOOP eCW1 ([facility]) POLYETHYLENE GLYCOL 3350 142 MG/ML Oral Solution [Celeste lax] MiraLax 17 GM/SCOOP MiraLax 17 GM/SCOOP 01/01/2021 12:00:00 AM EST active MiraLax 17 GM/SCOOP eCW1 ([facility]) POLYETHYLENE GLYCOL 3350 142 MG/ML Oral Solution [Celeste lax] MiraLax 17 GM/SCOOP MiraLax 17 GM/SCOOP 01/01/2021 12:00:00 AM EST active MiraLax 17 GM/SCOOP eCW1 ([facility]) POLYETHYLENE GLYCOL 3350 142 MG/ML Oral Solution [Celeste lax] MiraLax 17 GM/SCOOP MiraLax 17 GM/SCOOP 01/01/2021 12:00:00 AM EST active MiraLax 17 GM/SCOOP eCW1 ([facility]) POLYETHYLENE GLYCOL 3350 142 MG/ML Oral Solution [Celeste lax] MiraLax 17 GM/SCOOP MiraLax 17 GM/SCOOP 01/01/2021 12:00:00 AM EST active MiraLax 17 GM/SCOOP eCW1 ([facility]) POLYETHYLENE GLYCOL 3350 142 MG/ML Oral Solution [Celeste lax] MiraLax 17 GM/SCOOP MiraLax 17 GM/SCOOP 01/01/2021 12:00:00 AM EST active MiraLax 17 GM/SCOOP eCW1 ([facility]) POLYETHYLENE GLYCOL 3350 142 MG/ML Oral Solution [Celeste lax] MiraLax 17 GM/SCOOP MiraLax 17 GM/SCOOP 01/01/2021 12:00:00 AM EST active MiraLax 17 GM/SCOOP eCW1 ([facility]) POLYETHYLENE GLYCOL 3350 142 MG/ML Oral Solution [Celeste lax] MiraLax 17 GM/SCOOP MiraLax 17 GM/SCOOP 01/01/2021 12:00:00 AM EST active MiraLax 17 GM/SCOOP eCW1 ([facility]) POLYETHYLENE GLYCOL 3350 142 MG/ML Oral Solution [Celeste lax] MiraLax 17 GM/SCOOP MiraLax 17 GM/SCOOP 01/01/2021 12:00:00 AM EST active MiraLax 17 GM/SCOOP eCW1 ([facility]) POLYETHYLENE GLYCOL 3350 142 MG/ML Oral Solution [Celeste lax] MiraLax 17 GM/SCOOP MiraLax 17 GM/SCOOP 01/01/2021 12:00:00 AM EST active MiraLax 17 GM/SCOOP eCW1 ([facility]) POLYETHYLENE GLYCOL 3350 142 MG/ML Oral Solution [Celeste lax] MiraLax 17 GM/SCOOP MiraLax 17 GM/SCOOP 01/01/2021 12:00:00 AM EST active MiraLax 17 GM/SCOOP eCW1 ([facility]) POLYETHYLENE GLYCOL 3350 142 MG/ML Oral Solution [Celeste lax] MiraLax 17 GM/SCOOP MiraLax 17 GM/SCOOP 01/01/2021 12:00:00 AM EST active MiraLax 17 GM/SCOOP eCW1 ([facility]) POLYETHYLENE GLYCOL 3350 142 MG/ML Oral Solution [Celeste lax] MiraLax 17 GM/SCOOP MiraLax 17 GM/SCOOP 01/01/2021 12:00:00 AM EST active MiraLax 17 GM/SCOOP eCW1 ([facility]) POLYETHYLENE GLYCOL 3350 142 MG/ML Oral Solution [Celeste lax] MiraLax 17 GM/SCOOP MiraLax 17 GM/SCOOP 01/01/2021 12:00:00 AM EST active MiraLax 17 GM/SCOOP eCW1 ([facility]) POLYETHYLENE GLYCOL 3350 142 MG/ML Oral Solution [Celeste lax] MiraLax 17 GM/SCOOP MiraLax 17 GM/SCOOP 01/01/2021 12:00:00 AM EST active MiraLax 17 GM/SCOOP eCW1 ([facility]) POLYETHYLENE GLYCOL 3350 142 MG/ML Oral Solution [Celeste lax] MiraLax 17 GM/SCOOP MiraLax 17 GM/SCOOP 01/01/2021 12:00:00 AM EST active MiraLax 17 GM/SCOOP eCW1 ([facility]) POLYETHYLENE GLYCOL 3350 142 MG/ML Oral Solution [Celeste lax] MiraLax 17 GM/SCOOP MiraLax 17 GM/SCOOP 01/01/2021 12:00:00 AM EST active MiraLax 17 GM/SCOOP eCW1 ([facility]) POLYETHYLENE GLYCOL 3350 142 MG/ML Oral Solution [Celeste lax] MiraLax 17 GM/SCOOP MiraLax 17 GM/SCOOP 01/01/2021 12:00:00 AM EST active MiraLax 17 GM/SCOOP eCW1 ([facility]) POLYETHYLENE GLYCOL 3350 142 MG/ML Oral Solution [Celeste lax] MiraLax 17 GM/SCOOP MiraLax 17 GM/SCOOP 01/01/2021 12:00:00 AM EST active MiraLax 17 GM/SCOOP eCW1 ([facility]) POLYETHYLENE GLYCOL 3350 142 MG/ML Oral Solution [Celeste lax] MiraLax 17 GM/SCOOP MiraLax 17 GM/SCOOP 01/01/2021 12:00:00 AM EST active MiraLax 17 GM/SCOOP eCW1 ([facility]) POLYETHYLENE GLYCOL 3350 142 MG/ML Oral Solution [Celeste lax] MiraLax 17 GM/SCOOP MiraLax 17 GM/SCOOP 01/01/2021 12:00:00 AM EST active MiraLax 17 GM/SCOOP eCW1 ([facility]) POLYETHYLENE GLYCOL 3350 142 MG/ML Oral Solution [Celeste lax] MiraLax 17 GM/SCOOP MiraLax 17 GM/SCOOP 01/01/2021 12:00:00 AM EST active MiraLax 17 GM/SCOOP eCW1 ([facility]) POLYETHYLENE GLYCOL 3350 142 MG/ML Oral Solution [Celeste lax] MiraLax 17 GM/SCOOP MiraLax 17 GM/SCOOP 01/01/2021 12:00:00 AM EST active MiraLax 17 GM/SCOOP eCW1 ([facility]) POLYETHYLENE GLYCOL 3350 142 MG/ML Oral Solution [Celeste lax] MiraLax 17 GM/SCOOP MiraLax 17 GM/SCOOP 01/01/2021 12:00:00 AM EST active MiraLax 17 GM/SCOOP eCW1 ([facility]) May Have - UNK 12/24/2020 12:00:00 AM EST active May Have - eCW1 ([facility]) May Have - UNK 12/24/2020 12:00:00 AM EST active May Have - eCW1 ([facility]) May Have - UNK 12/24/2020 12:00:00 AM EST active May Have - eCW1 ([facility]) May Have - UNK 12/24/2020 12:00:00 AM EST active May Have - eCW1 ([facility]) May Have - UNK 12/24/2020 12:00:00 AM EST active May Have - eCW1 ([facility]) May Have - UNK 12/24/2020 12:00:00 AM EST active May Have - eCW1 ([facility]) May Have - UNK 12/24/2020 12:00:00 AM EST active May Have - eCW1 ([facility]) May Have 1 UNK 11/30/2020 12:00:00 AM EST active May Have 1 eCW1 ([facility]) May Have 1 UNK 11/30/2020 12:00:00 AM EST active May Have 1 eCW1 ([facility]) May Have 1 UNK 11/30/2020 12:00:00 AM EST active May Have 1 eCW1 ([facility]) May Have 1 UNK 11/30/2020 12:00:00 AM EST active May Have 1 eCW1 ([facility]) May Have 1 UNK 11/30/2020 12:00:00 AM EST active May Have 1 eCW1 ([facility]) May Have 1 UNK 11/30/2020 12:00:00 AM EST active May Have 1 eCW1 ([facility]) May Have 1 UNK 11/30/2020 12:00:00 AM EST active May Have 1 eCW1 ([facility]) May Have 1 UNK 11/30/2020 12:00:00 AM EST active May Have 1 eCW1 ([facility]) May Have 1 UNK 11/30/2020 12:00:00 AM EST active May Have 1 eCW1 ([facility]) May Have 1 UNK 11/30/2020 12:00:00 AM EST active May Have 1 eCW1 ([facility]) BD AutoShield Duo 30G X 5 MM BD AutoShield Duo 30G X 5 MM 12:00:00 AM EST active BD AutoShield Duo 30G X 5 MM eCW1 ([facility]) BD AutoShield Duo 30G X 5 MM BD AutoShield Duo 30G X 5 MM 12:00:00 AM EST active BD AutoShield Duo 30G X 5 MM eCW1 ([facility]) BD AutoShield Duo 30G X 5 MM BD AutoShield Duo 30G X 5 MM 12:00:00 AM EST active BD AutoShield Duo 30G X 5 MM eCW1 ([facility]) BD AutoShield Duo 30G X 5 MM BD AutoShield Duo 30G X 5 MM 12:00:00 AM EST active BD AutoShield Duo 30G X 5 MM eCW1 ([facility]) BD AutoShield Duo 30G X 5 MM BD AutoShield Duo 30G X 5 MM 12:00:00 AM EST active BD AutoShield Duo 30G X 5 MM eCW1 ([facility]) BD AutoShield Duo 30G X 5 MM BD AutoShield Duo 30G X 5 MM 12:00:00 AM EST active BD AutoShield Duo 30G X 5 MM eCW1 ([facility]) BD AutoShield Duo 30G X 5 MM BD AutoShield Duo 30G X 5 MM 12:00:00 AM EST active BD AutoShield Duo 30G X 5 MM eCW1 ([facility]) BD AutoShield Duo 30G X 5 MM BD AutoShield Duo 30G X 5 MM 12:00:00 AM EST active BD AutoShield Duo 30G X 5 MM eCW1 ([facility]) BD AutoShield Duo 30G X 5 MM BD AutoShield Duo 30G X 5 MM 12:00:00 AM EST active BD AutoShield Duo 30G X 5 MM eCW1 ([facility]) BD AutoShield Duo 30G X 5 MM BD AutoShield Duo 30G X 5 MM 12:00:00 AM EST active BD AutoShield Duo 30G X 5 MM eCW1 ([facility]) BD AutoShield Duo 30G X 5 MM BD AutoShield Duo 30G X 5 MM 12:00:00 AM EST active BD AutoShield Duo 30G X 5 MM eCW1 ([facility]) BD AutoShield Duo 30G X 5 MM BD AutoShield Duo 30G X 5 MM 12:00:00 AM EST active BD AutoShield Duo 30G X 5 MM eCW1 ([facility]) BD AutoShield Duo 30G X 5 MM BD AutoShield Duo 30G X 5 MM 12:00:00 AM EST active BD AutoShield Duo 30G X 5 MM eCW1 ([facility]) Warfarin Sodium 5 MG Oral Tablet Warfarin Sodium 5 MG 2020 12:00:00 AM EST 1.0 {tablet} active Warfarin So dium 5 MG eCW1 ([facility]) Warfarin Sodium 5 MG Oral Tablet Warfarin Sodium 5 MG 2020 12:00:00 AM EST 1.0 {tablet} active Warfarin So dium 5 MG eCW1 ([facility]) Warfarin Sodium 5 MG Oral Tablet Warfarin Sodium 5 MG 2020 12:00:00 AM EST 1.0 {tablet} active Warfarin So dium 5 MG eCW1 ([facility]) Warfarin Sodium 5 MG Oral Tablet Warfarin Sodium 5 MG 2020 12:00:00 AM EST 1.0 {tablet} active Warfarin So dium 5 MG eCW1 ([facility]) Warfarin Sodium 5 MG Oral Tablet Warfarin Sodium 5 MG 2020 12:00:00 AM EST 1.0 {tablet} active Warfarin So dium 5 MG eCW1 ([facility]) Warfarin Sodium 5 MG Oral Tablet Warfarin Sodium 5 MG 2020 12:00:00 AM EST 1.0 {tablet} active Warfarin So dium 5 MG eCW1 ([facility]) Warfarin Sodium 5 MG Oral Tablet Warfarin Sodium 5 MG 2020 12:00:00 AM EST 1.0 {tablet} active Warfarin So dium 5 MG eCW1 ([facility]) Warfarin Sodium 5 MG Oral Tablet Warfarin Sodium 5 MG 2020 12:00:00 AM EST 1.0 {tablet} active Warfarin So dium 5 MG eCW1 ([facility]) Warfarin Sodium 5 MG Oral Tablet Warfarin Sodium 5 MG 2020 12:00:00 AM EST 1.0 {tablet} active Warfarin So dium 5 MG eCW1 ([facility]) Warfarin Sodium 5 MG Oral Tablet Warfarin Sodium 5 MG 2020 12:00:00 AM EST 1.0 {tablet} active Warfarin So dium 5 MG eCW1 ([facility]) Warfarin Sodium 5 MG Oral Tablet Warfarin Sodium 5 MG 2020 12:00:00 AM EST 1.0 {tablet} active Warfarin So dium 5 MG eCW1 ([facility]) Warfarin Sodium 5 MG Oral Tablet Warfarin Sodium 5 MG 2020 12:00:00 AM EST 1.0 {tablet} active Warfarin So dium 5 MG eCW1 ([facility]) Warfarin Sodium 5 MG Oral Tablet Warfarin Sodium 5 MG 2020 12:00:00 AM EST 1.0 {tablet} active Warfarin So dium 5 MG eCW1 ([facility]) Warfarin Sodium 5 MG Oral Tablet Warfarin Sodium 5 MG 2020 12:00:00 AM EST 1.0 {tablet} active Warfarin So dium 5 MG eCW1 ([facility]) Warfarin Sodium 5 MG Oral Tablet Warfarin Sodium 5 MG 2020 12:00:00 AM EST 1.0 {tablet} active Warfarin So dium 5 MG eCW1 ([facility]) Warfarin Sodium 5 MG Oral Tablet Warfarin Sodium 5 MG 2020 12:00:00 AM EST 1.0 {tablet} active Warfarin So dium 5 MG eCW1 ([facility]) Warfarin Sodium 5 MG Oral Tablet Warfarin Sodium 5 MG 2020 12:00:00 AM EST 1.0 {tablet} active Warfarin So dium 5 MG eCW1 ([facility]) Warfarin Sodium 5 MG Oral Tablet Warfarin Sodium 5 MG 2020 12:00:00 AM EST 1.0 {tablet} active Warfarin So dium 5 MG eCW1 ([facility]) Warfarin Sodium 5 MG Oral Tablet Warfarin Sodium 5 MG 2020 12:00:00 AM EST 1.0 {tablet} active Warfarin So dium 5 MG eCW1 ([facility]) Warfarin Sodium 5 MG Oral Tablet Warfarin Sodium 5 MG 2020 12:00:00 AM EST 1.0 {tablet} active Warfarin So dium 5 MG eCW1 ([facility]) Warfarin Sodium 5 MG Oral Tablet Warfarin Sodium 5 MG 2020 12:00:00 AM EST 1.0 {tablet} active Warfarin So dium 5 MG eCW1 ([facility]) Warfarin Sodium 5 MG Oral Tablet Warfarin Sodium 5 MG 2020 12:00:00 AM EST 1.0 {tablet} active Warfarin So dium 5 MG eCW1 ([facility]) Warfarin Sodium 5 MG Oral Tablet Warfarin Sodium 5 MG 2020 12:00:00 AM EST 1.0 {tablet} active Warfarin So dium 5 MG eCW1 ([facility]) Warfarin Sodium 5 MG Oral Tablet Warfarin Sodium 5 MG 2020 12:00:00 AM EST 1.0 {tablet} active Warfarin So dium 5 MG eCW1 ([facility]) Warfarin Sodium 5 MG Oral Tablet Warfarin Sodium 5 MG 2020 12:00:00 AM EST 1.0 {tablet} active Warfarin So dium 5 MG eCW1 ([facility]) Warfarin Sodium 5 MG Oral Tablet Warfarin Sodium 5 MG 2020 12:00:00 AM EST 1.0 {tablet} active Warfarin So dium 5 MG eCW1 ([facility]) Warfarin Sodium 5 MG Oral Tablet Warfarin Sodium 5 MG 2020 12:00:00 AM EST 1.0 {tablet} active Warfarin So dium 5 MG eCW1 ([facility]) Warfarin Sodium 5 MG Oral Tablet Warfarin Sodium 5 MG 2020 12:00:00 AM EST 1.0 {tablet} active Warfarin So dium 5 MG eCW1 ([facility]) Warfarin Sodium 5 MG Oral Tablet Warfarin Sodium 5 MG 2020 12:00:00 AM EST 1.0 {tablet} active Warfarin So dium 5 MG eCW1 ([facility]) Warfarin Sodium 5 MG Oral Tablet Warfarin Sodium 5 MG 2020 12:00:00 AM EST 1.0 {tablet} active Warfarin So dium 5 MG eCW1 ([facility]) Warfarin Sodium 5 MG Oral Tablet Warfarin Sodium 5 MG 2020 12:00:00 AM EST 1.0 {tablet} active Warfarin So dium 5 MG eCW1 ([facility]) Warfarin Sodium 5 MG Oral Tablet Warfarin Sodium 5 MG 2020 12:00:00 AM EST 1.0 {tablet} active Warfarin So dium 5 MG eCW1 ([facility]) Warfarin Sodium 5 MG Oral Tablet Warfarin Sodium 5 MG 2020 12:00:00 AM EST 1.0 {tablet} active Warfarin So dium 5 MG eCW1 ([facility]) Warfarin Sodium 5 MG Oral Tablet Warfarin Sodium 5 MG 2020 12:00:00 AM EST 1.0 {tablet} active Warfarin So dium 5 MG eCW1 ([facility]) Warfarin Sodium 5 MG Oral Tablet Warfarin Sodium 5 MG 2020 12:00:00 AM EST 1.0 {tablet} active Warfarin So dium 5 MG eCW1 ([facility]) Warfarin Sodium 5 MG Oral Tablet Warfarin Sodium 5 MG 2020 12:00:00 AM EST 1.0 {tablet} active Warfarin So dium 5 MG eCW1 ([facility]) Warfarin Sodium 5 MG Oral Tablet Warfarin Sodium 5 MG 2020 12:00:00 AM EST 1.0 {tablet} active Warfarin So dium 5 MG eCW1 ([facility]) Suprep Bowel Prep Kit Suprep Bowel Prep Kit 11/05/2020 12:00:00 AM EST active [facility] ([facility]) Warfarin Sodium 5 MG Oral Tablet Warfarin Sodium 5 MG 2019 12:00:00 AM EST 1.0 {tablet} active Warfarin So dium 5 MG eCW1 ([facility]) Warfarin Sodium 5 MG Oral Tablet Warfarin Sodium 5 MG 2019 12:00:00 AM EST 1.0 {tablet} active Warfarin So dium 5 MG eCW1 ([facility]) Warfarin Sodium 5 MG Oral Tablet Warfarin Sodium 5 MG 2019 12:00:00 AM EST 1.0 {tablet} active Warfarin So dium 5 MG eCW1 ([facility]) Warfarin Sodium 5 MG Oral Tablet Warfarin Sodium 5 MG 2019 12:00:00 AM EST 1.0 {tablet} active Warfarin So dium 5 MG eCW1 ([facility]) Warfarin Sodium 5 MG Oral Tablet Warfarin Sodium 5 MG 2019 12:00:00 AM EST 1.0 {tablet} active Warfarin So dium 5 MG eCW1 ([facility]) Warfarin Sodium 5 MG Oral Tablet Warfarin Sodium 5 MG 2019 12:00:00 AM EST 1.0 {tablet} active Warfarin So dium 5 MG eCW1 ([facility]) Warfarin Sodium 5 MG Oral Tablet Warfarin Sodium 5 MG 2019 12:00:00 AM EST 1.0 {tablet} active Warfarin So dium 5 MG eCW1 ([facility]) Warfarin Sodium 5 MG Oral Tablet Warfarin Sodium 5 MG 2019 12:00:00 AM EST 1.0 {tablet} active Warfarin So dium 5 MG eCW1 ([facility]) Tylenol Extra Strength 500 MG Tylenol Extra Strength 500 MG 09/19/2020 12:00:00 AM EST 2.0 {tablet} active Tylenol Ext ra Strength 500 MG eCW1 ([facility]) Tylenol Extra Strength 500 MG Tylenol Extra Strength 500 MG 09/19/2020 12:00:00 AM EST 2.0 {tablet} active Tylenol Ext ra Strength 500 MG eCW1 ([facility]) Tylenol Extra Strength 500 MG Tylenol Extra Strength 500 MG 09/19/2020 12:00:00 AM EST 2.0 {tablet} active Tylenol Ext ra Strength 500 MG eCW1 ([facility]) Tylenol Extra Strength 500 MG Tylenol Extra Strength 500 MG 09/19/2020 12:00:00 AM EST 2.0 {tablet} active Tylenol Ext ra Strength 500 MG eCW1 ([facility]) Tylenol Extra Strength 500 MG Tylenol Extra Strength 500 MG 09/19/2020 12:00:00 AM EST 2.0 {tablet} active Tylenol Ext ra Strength 500 MG eCW1 ([facility]) Tylenol Extra Strength 500 MG Tylenol Extra Strength 500 MG 09/19/2020 12:00:00 AM EST 2.0 {tablet} active Tylenol Ext ra Strength 500 MG eCW1 ([facility]) Tylenol Extra Strength 500 MG Tylenol Extra Strength 500 MG 09/19/2020 12:00:00 AM EST 2.0 {tablet} active Tylenol Ext ra Strength 500 MG eCW1 ([facility]) Tylenol Extra Strength 500 MG Tylenol Extra Strength 500 MG 09/19/2020 12:00:00 AM EST 2.0 {tablet} active Tylenol Ext ra Strength 500 MG eCW1 ([facility]) Tylenol Extra Strength 500 MG Tylenol Extra Strength 500 MG 09/19/2020 12:00:00 AM EST 2.0 {tablet} active Tylenol Ext ra Strength 500 MG eCW1 ([facility]) Tylenol Extra Strength 500 MG Tylenol Extra Strength 500 MG 09/19/2020 12:00:00 AM EST 2.0 {tablet} active Tylenol Ext ra Strength 500 MG eCW1 ([facility]) Tylenol Extra Strength 500 MG Tylenol Extra Strength 500 MG 09/19/2020 12:00:00 AM EST 2.0 {tablet} active Tylenol Ext ra Strength 500 MG eCW1 ([facility]) Tylenol Extra Strength 500 MG Tylenol Extra Strength 500 MG 09/19/2020 12:00:00 AM EST 2.0 {tablet} active Tylenol Ext ra Strength 500 MG eCW1 ([facility]) Tylenol Extra Strength 500 MG Tylenol Extra Strength 500 MG 09/19/2020 12:00:00 AM EST 2.0 {tablet} active Tylenol Ext ra Strength 500 MG eCW1 ([facility]) Tylenol Extra Strength 500 MG Tylenol Extra Strength 500 MG 09/19/2020 12:00:00 AM EST 2.0 {tablet} active Tylenol Ext ra Strength 500 MG eCW1 ([facility]) Tylenol Extra Strength 500 MG Tylenol Extra Strength 500 MG 09/19/2020 12:00:00 AM EST 2.0 {tablet} active Tylenol Ext ra Strength 500 MG eCW1 ([facility]) Tylenol Extra Strength 500 MG Tylenol Extra Strength 500 MG 09/19/2020 12:00:00 AM EST 2.0 {tablet} active Tylenol Ext ra Strength 500 MG eCW1 ([facility]) Tylenol Extra Strength 500 MG Tylenol Extra Strength 500 MG 09/19/2020 12:00:00 AM EST 2.0 {tablet} active Tylenol Ext ra Strength 500 MG eCW1 ([facility]) Tylenol Extra Strength 500 MG Tylenol Extra Strength 500 MG 09/19/2020 12:00:00 AM EST 2.0 {tablet} active Tylenol Ext ra Strength 500 MG eCW1 ([facility]) Tylenol Extra Strength 500 MG Tylenol Extra Strength 500 MG 09/19/2020 12:00:00 AM EST 2.0 {tablet} active Tylenol Ext ra Strength 500 MG eCW1 ([facility]) Tylenol Extra Strength 500 MG Tylenol Extra Strength 500 MG 09/19/2020 12:00:00 AM EST 2.0 {tablet} active Tylenol Ext ra Strength 500 MG eCW1 ([facility]) Tylenol Extra Strength 500 MG Tylenol Extra Strength 500 MG 09/19/2020 12:00:00 AM EST 2.0 {tablet} active Tylenol Ext ra Strength 500 MG eCW1 ([facility] [place]) Tylenol Extra Strength 500 MG Tylenol Extra Strength 500 MG 09/19/2020 12:00:00 AM EST 2.0 {tablet} active Tylenol Ext ra Strength 500 MG eCW1 ([facility] [place]) Tylenol Extra Strength 500 MG Tylenol Extra Strength 500 MG 09/19/2020 12:00:00 AM EST 2.0 {tablet} active Tylenol Ext ra Strength 500 MG eCW1 ([facility] [place]) Tylenol Extra Strength 500 MG Tylenol Extra Strength 500 MG 09/19/2020 12:00:00 AM EST 2.0 {tablet} active Tylenol Ext ra Strength 500 MG eCW1 ([facility] [place]) Tylenol Extra Strength 500 MG Tylenol Extra Strength 500 MG 09/19/2020 12:00:00 AM EST 2.0 {tablet} active Tylenol Ext ra Strength 500 MG eCW1 ([facility] [place]) Tylenol Extra Strength 500 MG Tylenol Extra Strength 500 MG 09/19/2020 12:00:00 AM EST 2.0 {tablet} active Tylenol Ext ra Strength 500 MG eCW1 ([facility] [place]) Tylenol Extra Strength 500 MG Tylenol Extra Strength 500 MG 09/19/2020 12:00:00 AM EST 2.0 {tablet} active Tylenol Ext ra Strength 500 MG [facility]CW[facility] [place]) Tylenol Extra Strength 500 MG Tylenol Extra Strength 500 MG 09/19/2020 12:00:00 AM EST 2.0 {tablet} active Tylenol Ext ra Strength 500 MG eCW1 ([facility] [place]) Menthol 100 MG/ML / methyl salicylate 15 0 MG/ML Topical Cream Bengay Greaseless 10-15 % Bengay Greaseless 10-15 % 09/17/2020 12:00:00 AM EST active Bengay Greaseless 10-15 % eCW1 ([facility] Menthol 100 MG/ML / methyl salicylate 15 0 MG/ML Topical Cream Bengay Greaseless 10-15 % Bengay Greaseless 10-15 % 09/17/2020 12:00:00 AM EST active Bengay Greaseless 10-15 % eCW1 ([facility]) Menthol 100 MG/ML / methyl salicylate 15 0 MG/ML Topical Cream Bengay Greaseless 10-15 % Bengay Greaseless 10-15 % 09/17/2020 12:00:00 AM EST active Bengay Greaseless 10-15 % eCW1 ([facility]) Menthol 100 MG/ML / methyl salicylate 15 0 MG/ML Topical Cream Bengay Greaseless 10-15 % Bengay Greaseless 10-15 % 09/17/2020 12:00:00 AM EST active Bengay Greaseless 10-15 % eCW1 ([facility]) Menthol 100 MG/ML / methyl salicylate 15 0 MG/ML Topical Cream Bengay Greaseless 10-15 % Bengay Greaseless 10-15 % 09/17/2020 12:00:00 AM EST active Bengay Greaseless 10-15 % eCW1 ([facility]) Menthol 100 MG/ML / methyl salicylate 15 0 MG/ML Topical Cream Bengay Greaseless 10-15 % Bengay Greaseless 10-15 % 09/17/2020 12:00:00 AM EST active Bengay Greaseless 10-15 % eCW1 ([facility]) Menthol 100 MG/ML / methyl salicylate 15 0 MG/ML Topical Cream Bengay Greaseless 10-15 % Bengay Greaseless 10-15 % 09/17/2020 12:00:00 AM EST active Bengay Greaseless 10-15 % eCW1 ([facility] hospital) Menthol 100 MG/ML / methyl salicylate 15 0 MG/ML Topical Cream Bengay Greaseless 10-15 % Bengay Greaseless 10-15 % 09/17/2020 12:00:00 AM EST active Bengay Greaseless 10-15 % eCW1 ([facility] hospital) Menthol 100 MG/ML / methyl salicylate 15 0 MG/ML Topical Cream Bengay Greaseless 10-15 % Bengay Greaseless 10-15 % 09/17/2020 12:00:00 AM EST active Bengay Greaseless 10-15 % eCW1 ([facility] hospital) Menthol 100 MG/ML / methyl salicylate 15 0 MG/ML Topical Cream Bengay Greaseless 10-15 % Bengay Greaseless 10-15 % 09/17/2020 12:00:00 AM EST active Bengay Greaseless 10-15 % eCW1 ([facility] hospital) Menthol 100 MG/ML / methyl salicylate 15 0 MG/ML Topical Cream Bengay Greaseless 10-15 % Bengay Greaseless 10-15 % 09/17/2020 12:00:00 AM EST active Bengay Greaseless 10-15 % eCW1 ([facility] hospital) Menthol 100 MG/ML / methyl salicylate 15 0 MG/ML Topical Cream Bengay Greaseless 10-15 % Bengay Greaseless 10-15 % 09/17/2020 12:00:00 AM EST active Bengay Greaseless 10-15 % eCW1 (Critical [facility] hospital) Warfarin Sodium 7.5 MG Oral Tablet Warfarin Sodium 7.5 MG 12:00:00 AM EST active Warfarin Sodium 7 .5 MG eCW1 ([facility] [place]) Warfarin Sodium 7.5 MG Oral Tablet Warfarin Sodium 7.5 MG 12:00:00 AM EST active Warfarin Sodium 7 .5 MG eCW1 ([facility] [place]) Warfarin Sodium 7.5 MG Oral Tablet Warfarin Sodium 7.5 MG 12:00:00 AM EST active Warfarin Sodium 7 .5 MG eCW1 ([facility] [place]) Warfarin Sodium 7.5 MG Oral Tablet Warfarin Sodium 7.5 MG 12:00:00 AM EST active Warfarin Sodium 7 .5 MG eCW1 ([facility] [place]) Warfarin Sodium 7.5 MG Oral Tablet Warfarin Sodium 7.5 MG 12:00:00 AM EST active Warfarin Sodium 7 .5 MG eCW1 ([facility] [place]) Warfarin Sodium 7.5 MG Oral Tablet Warfarin Sodium 7.5 MG 12:00:00 AM EST active Warfarin Sodium 7 .5 MG eCW1 ([facility] [place]) Warfarin Sodium 7.5 MG Oral Tablet Warfarin Sodium 7.5 MG 12:00:00 AM EST active Warfarin Sodium 7 .5 MG eCW1 ([facility] [place]) Warfarin Sodium 7.5 MG Oral Tablet Warfarin Sodium 7.5 MG 12:00:00 AM EST active Warfarin Sodium 7 .5 MG eCW1 ([facility] [place]) Warfarin Sodium 7.5 MG Oral Tablet Warfarin Sodium 7.5 MG 12:00:00 AM EST active Warfarin Sodium 7 .5 MG eCW1 ([facility] [place]) Warfarin Sodium 7.5 MG Oral Tablet Warfarin Sodium 7.5 MG 12:00:00 AM EST active Warfarin Sodium 7 .5 MG eCW1 ([facility] [place]) Warfarin Sodium 7.5 MG Oral Tablet Warfarin Sodium 7.5 MG 12:00:00 AM EST active Warfarin Sodium 7 .5 MG eCW1 ([facility] [place]) Warfarin Sodium 7.5 MG Oral Tablet Warfarin Sodium 7.5 MG 12:00:00 AM EST active Warfarin Sodium 7 .5 MG eCW1 ([facility] [place]) Warfarin Sodium 7.5 MG Oral Tablet Warfarin Sodium 7.5 MG 12:00:00 AM EST active Warfarin Sodium 7 .5 MG eCW1 ([facility] [place]) doxycycline hyclate 100 MG Oral Tablet Doxycycline Hyclate 1 11/03/2019 12:00:00 AM EST ORAL active [facility] ([facility]) 3 ML Insulin Glargine 100 UNT/ML Pen Inj marlen [Lantus] Lantus SoloStar 100 UNIT/ML Lantus SoloStar 100 UNIT/ML 08/21/2020 12:00:00 AM EDT active Lantus SoloStar 100 UNIT/ML eCW1 ([facility]) 3 ML Insulin Glargine 100 UNT/ML Pen Inj marlen [Lantus] Lantus SoloStar 100 UNIT/ML Lantus SoloStar 100 UNIT/ML 08/21/2020 12:00:00 AM EDT active Lantus SoloStar 100 UNIT/ML eCW1 ([facility]) 3 ML Insulin Glargine 100 UNT/ML Pen Inj marlen [Lantus] Lantus SoloStar 100 UNIT/ML Lantus SoloStar 100 UNIT/ML 08/21/2020 12:00:00 AM EDT active Lantus SoloStar 100 UNIT/ML eCW1 ([facility]) 3 ML Insulin Glargine 100 UNT/ML Pen Inj marlen [Lantus] Lantus SoloStar 100 UNIT/ML Lantus SoloStar 100 UNIT/ML 08/21/2020 12:00:00 AM EDT active Lantus SoloStar 100 UNIT/ML eCW1 ([facility]) 3 ML Insulin Glargine 100 UNT/ML Pen Inj marlen [Lantus] Lantus SoloStar 100 UNIT/ML Lantus SoloStar 100 UNIT/ML 08/21/2020 12:00:00 AM EDT active Lantus SoloStar 100 UNIT/ML eCW1 ([facility]) 3 ML Insulin Glargine 100 UNT/ML Pen Inj marlen [Lantus] Lantus SoloStar 100 UNIT/ML Lantus SoloStar 100 UNIT/ML 08/21/2020 12:00:00 AM EDT active Lantus SoloStar 100 UNIT/ML eCW1 ([facility]) 3 ML Insulin Glargine 100 UNT/ML Pen Inj marlen [Lantus] Lantus SoloStar 100 UNIT/ML Lantus SoloStar 100 UNIT/ML 08/21/2020 12:00:00 AM EDT active Lantus SoloStar 100 UNIT/ML eCW1 ([facility]) 3 ML Insulin Glargine 100 UNT/ML Pen Inj marlen [Lantus] Lantus SoloStar 100 UNIT/ML Lantus SoloStar 100 UNIT/ML 08/21/2020 12:00:00 AM EDT active Lantus SoloStar 100 UNIT/ML eCW1 ([facility]) 3 ML Insulin Glargine 100 UNT/ML Pen Inj marlen [Lantus] Lantus SoloStar 100 UNIT/ML Lantus SoloStar 100 UNIT/ML 08/21/2020 12:00:00 AM EDT active Lantus SoloStar 100 UNIT/ML eCW1 ([facility]) 3 ML Insulin Glargine 100 UNT/ML Pen Inj marlen [Lantus] Lantus SoloStar 100 UNIT/ML Lantus SoloStar 100 UNIT/ML 08/21/2020 12:00:00 AM EDT active Lantus SoloStar 100 UNIT/ML eCW1 ([facility]) 3 ML Insulin Glargine 100 UNT/ML Pen Inj marlen [Lantus] Lantus SoloStar 100 UNIT/ML Lantus SoloStar 100 UNIT/ML 08/21/2020 12:00:00 AM EDT active Lantus SoloStar 100 UNIT/ML eCW1 ([facility]) 3 ML Insulin Glargine 100 UNT/ML Pen Inj marlen [Lantus] Lantus SoloStar 100 UNIT/ML Lantus SoloStar 100 UNIT/ML 08/21/2020 12:00:00 AM EDT active Lantus SoloStar 100 UNIT/ML eCW1 ([facility]) 3 ML Insulin Glargine 100 UNT/ML Pen Inj marlen [Lantus] Lantus SoloStar 100 UNIT/ML Lantus SoloStar 100 UNIT/ML 08/21/2020 12:00:00 AM EDT active Lantus SoloStar 100 UNIT/ML eCW1 ([facility]) 3 ML Insulin Glargine 100 UNT/ML Pen Inj marlen [Lantus] Lantus SoloStar 100 UNIT/ML Lantus SoloStar 100 UNIT/ML 08/21/2020 12:00:00 AM EDT active Lantus SoloStar 100 UNIT/ML eCW1 ([facility]) 3 ML Insulin Glargine 100 UNT/ML Pen Inj marlen [Lantus] Lantus SoloStar 100 UNIT/ML Lantus SoloStar 100 UNIT/ML 08/21/2020 12:00:00 AM EDT active Lantus SoloStar 100 UNIT/ML eCW1 ([facility]) 3 ML Insulin Glargine 100 UNT/ML Pen Inj marlen [Lantus] Lantus SoloStar 100 UNIT/ML Lantus SoloStar 100 UNIT/ML 08/21/2020 12:00:00 AM EDT active Lantus SoloStar 100 UNIT/ML eCW1 ([facility]) 3 ML Insulin Glargine 100 UNT/ML Pen Inj marlen [Lantus] Lantus SoloStar 100 UNIT/ML Lantus SoloStar 100 UNIT/ML 08/21/2020 12:00:00 AM EDT active Lantus SoloStar 100 UNIT/ML eCW1 ([facility]) 3 ML Insulin Glargine 100 UNT/ML Pen Inj marlen [Lantus] Lantus SoloStar 100 UNIT/ML Lantus SoloStar 100 UNIT/ML 08/21/2020 12:00:00 AM EDT active Lantus SoloStar 100 UNIT/ML eCW1 ([facility]) 3 ML Insulin Glargine 100 UNT/ML Pen Inj marlen [Lantus] Lantus SoloStar 100 UNIT/ML Lantus SoloStar 100 UNIT/ML 08/21/2020 12:00:00 AM EDT active Lantus SoloStar 100 UNIT/ML eCW1 ([facility]) 3 ML Insulin Glargine 100 UNT/ML Pen Inj marlen [Lantus] Lantus SoloStar 100 UNIT/ML Lantus SoloStar 100 UNIT/ML 08/21/2020 12:00:00 AM EDT active Lantus SoloStar 100 UNIT/ML eCW1 ([facility]) 3 ML Insulin Glargine 100 UNT/ML Pen Inj marlen [Lantus] Lantus SoloStar 100 UNIT/ML Lantus SoloStar 100 UNIT/ML 08/21/2020 12:00:00 AM EDT active Lantus SoloStar 100 UNIT/ML eCW1 ([facility]) 3 ML Insulin Glargine 100 UNT/ML Pen Inj marlen [Lantus] Lantus SoloStar 100 UNIT/ML Lantus SoloStar 100 UNIT/ML 08/21/2020 12:00:00 AM EDT active Lantus SoloStar 100 UNIT/ML eCW1 ([facility]) 3 ML Insulin Glargine 100 UNT/ML Pen Inj marlen [Lantus] Lantus SoloStar 100 UNIT/ML Lantus SoloStar 100 UNIT/ML 08/21/2020 12:00:00 AM EDT active Lantus SoloStar 100 UNIT/ML eCW1 ([facility]) 3 ML Insulin Glargine 100 UNT/ML Pen Inj marlen [Lantus] Lantus SoloStar 100 UNIT/ML Lantus SoloStar 100 UNIT/ML 08/21/2020 12:00:00 AM EDT active Lantus SoloStar 100 UNIT/ML eCW1 ([facility]) 3 ML Insulin Glargine 100 UNT/ML Pen Inj marlen [Lantus] Lantus SoloStar 100 UNIT/ML Lantus SoloStar 100 UNIT/ML 08/21/2020 12:00:00 AM EDT active Lantus SoloStar 100 UNIT/ML eCW1 ([facility]) 3 ML Insulin Glargine 100 UNT/ML Pen Inj marlen [Lantus] Lantus SoloStar 100 UNIT/ML Lantus SoloStar 100 UNIT/ML 08/21/2020 12:00:00 AM EDT active Lantus SoloStar 100 UNIT/ML eCW1 ([facility]) 3 ML Insulin Glargine 100 UNT/ML Pen Inj marlen [Lantus] Lantus SoloStar 100 UNIT/ML Lantus SoloStar 100 UNIT/ML 08/21/2020 12:00:00 AM EDT active Lantus SoloStar 100 UNIT/ML eCW1 ([facility]) 3 ML Insulin Glargine 100 UNT/ML Pen Inj marlen [Lantus] Lantus SoloStar 100 UNIT/ML Lantus SoloStar 100 UNIT/ML 08/21/2020 12:00:00 AM EDT active Lantus SoloStar 100 UNIT/ML eCW1 ([facility]) 3 ML Insulin Glargine 100 UNT/ML Pen Inj marlen [Lantus] Lantus SoloStar 100 UNIT/ML Lantus SoloStar 100 UNIT/ML 08/21/2020 12:00:00 AM EDT active Lantus SoloStar 100 UNIT/ML eCW1 ([facility]) 3 ML Insulin Glargine 100 UNT/ML Pen Inj marlen [Lantus] Lantus SoloStar 100 UNIT/ML Lantus SoloStar 100 UNIT/ML 08/21/2020 12:00:00 AM EDT active Lantus SoloStar 100 UNIT/ML eCW1 ([facility]) 3 ML Insulin Glargine 100 UNT/ML Pen Inj marlen [Lantus] Lantus SoloStar 100 UNIT/ML Lantus SoloStar 100 UNIT/ML 08/21/2020 12:00:00 AM EDT active Lantus SoloStar 100 UNIT/ML eCW1 ([facility]) 3 ML Insulin Glargine 100 UNT/ML Pen Inj marlen [Lantus] Lantus SoloStar 100 UNIT/ML Lantus SoloStar 100 UNIT/ML 08/21/2020 12:00:00 AM EDT active Lantus SoloStar 100 UNIT/ML eCW1 ([facility]) 3 ML Insulin Glargine 100 UNT/ML Pen Inj marlen [Lantus] Lantus SoloStar 100 UNIT/ML Lantus SoloStar 100 UNIT/ML 08/21/2020 12:00:00 AM EDT active Lantus SoloStar 100 UNIT/ML eCW1 ([facility]) BD Ultra-fine Pen [place] 32G 4mm UNK 08/20/2020 12:00:00 AM EDT active BD Ultra-fine Pen [place] 32G 4m m eCW1 ([facility] [place]) BD Ultra-fine Pen [place] 32G 4mm UNK 08/20/2020 12:00:00 AM EDT active BD Ultra-fine Pen [place] 32G 4m m eCW1 ([facility] [place]) sitagliptin 50 MG Oral Tablet [Januvia] Januvia 50 MG Januvi a 50 MG 08/20/2020 12:00:00 AM EDT 1.0 {tablet} active Ja meghan 50 MG eCW1 ([facility] [place]) BD Ultra-fine Pen [place] 32G 4mm UNK 08/20/2020 12:00:00 AM EDT active BD Ultra-fine Pen [place] 32G 4m m eCW1 ([facility] [place]) sitagliptin 50 MG Oral Tablet [Januvia] Januvia 50 MG Januvi a 50 MG 08/20/2020 12:00:00 AM EDT 1.0 {tablet} active Ja meghan 50 MG eCW1 ([facility] [place]) sitagliptin 50 MG Oral Tablet [Januvia] Januvia 50 MG Januvi a 50 MG 08/20/2020 12:00:00 AM EDT 1.0 {tablet} active Ja meghan 50 MG eCW1 ([facility] [place]) sitagliptin 50 MG Oral Tablet [Januvia] Januvia 50 MG Januvi a 50 MG 08/20/2020 12:00:00 AM EDT 1.0 {tablet} active Ja meghan 50 MG eCW1 ([facility] [place]) sitagliptin 50 MG Oral Tablet [Novuvia] Januvia 50 MG Januvi a 50 MG 08/20/2020 12:00:00 AM EDT 1.0 {tablet} active Ja meghan 50 MG eCW1 ([facility] [place]) BD Ultra-fine Pen [place] 32G 4mm UNK 08/20/2020 12:00:00 AM EDT active BD Ultra-fine Pen [place] 32G 4m m eCW1 ([facility] [place]) BD Ultra-fine Pen [place] 32G 4mm UNK 08/20/2020 12:00:00 AM EDT active BD Ultra-fine Pen [place] 32G 4m m eCW1 ([facility] [place]) Colloidal oatmeal 10 MG/ML Topical Cream [Eucerin Ecze ma Relief] Eucerin Eczema Relief 07/18/2020 12:00:00 AM EDT active [facility] ([facility]) Insurance Providers Payer name Policy type / Coverage type Policy ID Covered alliance party ID Covered alliance party's relationship to matt Policy Matt Plan Information [facility] I [id number] Self [id number] [facility] [id number] Self [id number] MEDICAID M [id number] Self [id number] [facility] I [id number] Self [id number] [facility] I [id number] Self [id number] MEDICAID M [id number] Self [id number] Medicaid P [id number] S [id number] MEDICAID [id number] SP [id number] MEDICAID [id number] SP [id number] MEDICAID [id number] SP [id number] MEDICARE [id number] SP [id number] A MEDICAID [id number] SP [id number] ANSI-Medicare Part B [id number] ANSI-Medicaid [id number] ANSI-Medicaid [id number] ANSI-Medicare Part B [id number] ANSI-Medicare Part B [id number] ANSI-Medicaid [id number] ANSI-Medicare Part B [id number] ANSI-Medicaid [id number] ANSI-Medicaid [id number] ANSI-Medicare Part B [id number] ANSI-Medicare Part B [id number] ANSI-Medicaid [id number] ANSI-Medicare Part B [id number] ANSI-Medicaid [id number] ANSI-Medicaid [id number] ANSI-Medicare Part B [id number] ANSI-Medicare Part B [id number] ANSI-Medicaid [id number] MEDICARE [id number] SP [id number] A ANSI-Medicare Part B [id number] ANSI-Medicaid [id number] ANSI-Medicare Part B [id number] ANSI-Medicaid [id number] ANSI-Medicaid [id number] ANSI-Medicare Part B [id number] ANSI-Medicaid [id number] ANSI-Medicare Part B [id number] ANSI-Medicaid [id number] ANSI-Medicare Part B [id number] ANSI-Medicaid [id number] ANSI-Medicare Part B [id number] ANSI-Medicaid [id number] ANSI-Medicare Part B [id number] [facility] [id number] Self [id number] Medicare [employer] Primary [id number] Self [id number] ANSI-Medicaid [id number] ANSI-Medicare Part B [id number] ANSI-Medicare Part B [id number] ANSI-Medicaid [id number] ANSI-Medicare Part B [id number] ANSI-Medicaid [id number] ANSI-Medicare Part B [id number] ANSI-Medicaid [id number] ANSI-Medicaid [id number] ANSI-Medicare Part B [id number] ANSI-Medicaid [id number] ANSI-Medicare Part B [id number] ANSI-Medicaid [id number] ANSI-Medicare Part B [id number] ANSI-Medicaid [id number] ANSI-Medicare Part B [id number] ANSI-Medicare Part B [id number] ANSI-Medicaid [id number] ANSI-Medicare Part B [id number] ANSI-Medicaid [id number] ANSI-Medicaid [id number] ANSI-Medicare Part B [id number] ANSI-Medicaid [id number] ANSI-Medicare Part B [id number] ANSI-Medicaid [id number] ANSI-Medicare Part B [id number] ANSI-Medicare Part B [id number] ANSI-Medicaid [id number] ANSI-Medicare Part B [id number] ANSI-Medicaid [id number] [place] Part B [id number] Self [id number] [place] [id number]9.68657.0 Self [id number] Medicaid [place] Part B [id number] 84.0 Self [id number] Medicare [facility]l Govt [facility] Medicare Primary [id number] Self [id number] Medicaid Medigap Part B [id number] 84.0 Self [id number] Medicare Natl Govt Serv Medicare Primary [id number] .[id number].0 Self [id number] Medicaid Medigap Part B [id number] .[id number] 84.0 Self [id number] Medicare [facility] Medicare Primary [id number] 2..840.1.457396.3.227.99.4595.50525.0 Self [id number] MEDICARE C [id number] S [id number] A Medicaid Medigap Part B [id number] 2.840.1.391965.3.227.99.4595.281 84.0 Self [id number] Medicare [facility] Medicare Primary [id number] 2.840.1.280005.3.227.99.4595.79505.0 Self [id number] Medicaid Medigap Part B [id number] 2.840.1.186431.3.227.99.4595.281 84.0 Self [id number] Medicare [facility] Medicare Primary [id number] 2.840.1.441079.3.227.99.4595.65023.0 Self [id number] Medicaid Medigap Part B [id number] 2.840.1.557775.3.227.99.4595.281 84.0 Self [id number] Medicare [facility] Medicare Primary [id number]595.12089.0 Self [id number] [place] Primary [id number]646.609961.0 Self [id number] Medicaid Medigap Part B [id number] 2.840.1.649162.3.227.99.4595.281 84.0 Self [id number] Medicare [facility] Medicare Primary [id number] 2.840.1.461776.3.227.99.4595.66179.0 Self [id number] Medicaid Medicaid [id number] 2.840.1.331489.3.227.99.4595.57707.0 Self [id number] Medicaid Medicaid [id number] 2.16.840.1.252355.3.227.99.4595.66147.0 Self [id number] Medicaid Medicaid [id number]9.4595.18668.0 Self [id number] Medicaid Medicaid [id number]9.4595.05657.0 Self [id number] [facility] PL[facility] MCD[facility] UNAVAILABLE SP UNAVAILABLE Medicaid Medicaid 1 1 [id number]9.4595.36696.0 Self 1 1 [facility] Community Plan(Medicaid) [id number] 18 [id number] [facility] Plan [id number] 18 [id number] [facility] MEDICAID [id number] SP [id number] M [facility] PLAN [facility] [id number] S [id number] MEDICARE [id number] SP [id number] [place] [id number] SP [id number] MEDICARE C [id number] S [id number] MEDICAID M [id number] S [id number] MEDICAID [id number] SP [id number] ANS-Medicaid [id number] ANSI-Medicare Part B [id number] ANSI-Medicaid [id number] ANSI-Medicare Part B [id number] ANSI-Medicaid [id number] [facility] [id number] Problems, Conditions, and Diagnoses Code Display Name Description Problem Type Effective Dates Data Source(s) K59.00 Constipation Constipation Problem 05/24/2021 12:00:00 A M EDT eCW1 ([facility]) Z51.81 [id number] Encounter for therapeutic drug level rinku toring Problem 08/22/2020 12:00:00 AM EDT eCW1 ([facility]) N18.3 Chronic kidney disease stage 3 Chronic k idney disease (CKD), stage 3 (moderate) Problem 08/20/2020 12:00:00 AM EDT eCW1 ([facility]) Surgeries/Procedures Procedure Description Date Indications Data Source(s) COLONOSCOPY W/BIOPSY SINGLE/MULTIPLE 07/29/2021 12:00: 00 AM EDT MEDENT ([facility]) OFFICE OUTPATIENT VISIT 15 MINUTES 06/06/2021 12:00:00 AM EDT MEDENT ([facility]) INCISION & DRAINAGE ABSCESS SIMPLE/SINGLE 05/30/2021 1 2:00:00 AM EDT MEDENT ([facility]) OFFICE OUTPATIENT VISIT 25 MINUTES 05/30/2021 12:00:00 AM EDT MEDENT ([facility]) COLSC FLX PROX SPLENIC FLXR RMVL LES SNARE TQ 11/21/19 12:00:00 AM EST [facility] ([facility]) Results ID Date Data Source [id number] 07/29/2021 09:38:00 AM EDT MED[facility] ([facility]) Name Value Range Interpretation Code Description Data Cintia rce(s) Supporting Document(s) Surgical pathology study Laboratory test result MEDENT ([facility]) FINAL DIAGNOSIS Mid ascending colon polyps, polypectomy: Tubular adenoma, fragments. 07/30/2021 - 1044 CLINICAL DIAGNOSIS Right sided polyp 07/29/2021 - 1505 GROSS DIAGNOSIS Received in formalin labeled "mid ascending colon polyps" and consists of fragments of tissue 0.3 x 0.2 x 0.1 cm. in aggregate. All in one. -OA 07/29/2021 - 1505 Signed OBIE CESPEDES MD 07/30/2021 1045 ID Date Data Source [id number] 07/24/2021 09:15:00 AM EDT [facility] Name Value Range Interpretation Code Description Data Cintia rce(s) Supporting Document(s) SARS-CoV-2 (COVID-19) RNA [Presence] in Respiratory specimen by ALYSHA with probe detection Not Detected [facility] This lab was ordered by [facility] and reported by [facility]. ID Date Data Source [facility] Head without contrast 03/15/2021 12:00:00 AM EDT eCW1 ([facility]) Name Value Range Interpretation Code Description Data Cintia rce(s) Supporting Document(s) [facility] CT Head without contrast e CW1 ([facility]) ID Date Data Source PLZ SPINE LS COMPLETE 01/25/2021 12:00:00 AM EDT eCW1 (Replaced by [facility]) Name Value Range Interpretation Code Description Data Cintia rce(s) Supporting Document(s) PLZ SPINE LS COMPLETE eCW1 ([facility]) ID Date Data Source [id number] 12/17/2020 10:00:00 AM EST [facility] Name Value Range Interpretation Code Description Data Cintia rce(s) Supporting Document(s) SARS coronavirus 2 RNA Not Detected [facility] This lab was ordered by [facility] and reported by [facility]. ID Date Data Source [id number] 12/10/2020 09:30:00 AM EST [facility] Name Value Range Interpretation Code Description Data Cintia rce(s) Supporting Document(s) SARS coronavirus 2 RNA Not Detected [facility] This lab was ordered by [facility] and reported by [facility]. ID Date Data Source [id number] 12/03/2020 09:00:00 AM EST [facility] Name Value Range Interpretation Code Description Data Cintia rce(s) Supporting Document(s) SARS coronavirus 2 RNA Not Detected [facility] This lab was ordered by [facility] and reported by [facility]. ID Date Data Source [id number] 11/26/2020 01:00:00 PM EST [facility] Name Value Range Interpretation Code Description Data Cintia rce(s) Supporting Document(s) SARS coronavirus 2 RNA Not Detected [facility] This lab was ordered by [facility] and reported by [facility]. ID Date Data Source [id number] 11/21/2020 08:07:00 AM EST [facility] ([facility]) Name Value Range Interpretation Code Description Data Cintia rce(s) Supporting Document(s) Surgical pathology study Laboratory test result [facility] ([facility]) FINAL DIAGNOSIS Colon, hepatic flexure polyp, polypectomy: [...] MD 11/22/2020 1138 ID Date Data Source [id number] 11/19/2020 06:25:00 AM EST [facility] Name Value Range Interpretation Code Description Data Cintia rce(s) Supporting Document(s) SARS coronavirus 2 RNA Not Detected [facility] This lab was ordered by [facility] and reported by [facility]. ID Date Data Source [id number] 11/16/2020 10:00:00 AM EST [facility] Name Value Range Interpretation Code Description Data Cintia rce(s) Supporting Document(s) SARS coronavirus 2 RNA Not Detected [facility] This lab was ordered by [facility] and reported by [facility]. ID Date Data Source [id number] 11/12/2020 06:00:00 AM EST [facility] Name Value Range Interpretation Code Description Data Cintia rce(s) Supporting Document(s) SARS coronavirus 2 RNA Not Detected [facility] This lab was ordered by [facility] and reported by [facility]. ID Date Data Source CBC with Differential 11/07/2020 12:00:00 AM EST eCW1 ([facility]) Name Value Range Interpretation Code Description Data Cintia rce(s) Supporting Document(s) 7.4 4.0-10.0 WHITE BLOOD COUNT eCW1 ([facility]) 4.81 4.00-5.40 RED BLOOD COUNT eCW1 ([facility]) 12.4 12.0-15.5 HEMOGLOBIN eCW1 ([facility]) 40.7 36.0-47.0 HEMATOCRIT eCW1 ([facility]) 84.6 80.0-96.0 MEAN CORPUSCULAR VOLUME e CW1 ([facility]) 30.5 32.0-36.5 MEAN CORPUSCULAR HGB CONC eCW1 ([facility]) 25.8 27.0-33.0 MEAN CORPUSCULAR HEMOGLOB IN eCW1 ([facility]) 41.1 24.0-44.0 LYMPH % eCW1 ([facility]) 43.3 36.0-66.0 NEUTROPHILS % eCW1 ([facility]) 15.9 11.5-14.5 RED CELL DISTRIBUTION WID TH eCW1 ([facility]) 310 150-450 PLATELET COUNT, AUTOMATED eCW1 ([facility]) 8.7 0.0-5.0 MONO % eCW1 ([facility]) 0.5 0.0-1.0 BASO % eCW1 ([facility]) 6.1 0.0-3.0 EOS % eCW1 ([facility]) 3.2 1.5-8.5 NEUTROPHILS # eCW1 ([facility]) 0.5 0.0-0.5 EOS # eCW1 ([facility]) 0.0 0.0-0.2 BASO # eCW1 ([facility]) 0.6 0.0-0.8 MONO # eCW1 ([facility]) 3.0 1.5-5.0 LYMPH # eCW1 ([facility]) ID Date Data Source NT-PRO BNP 11/07/2020 12:00:00 AM EST eCW1 ([facility]) Name Value Range Interpretation Code Description Data Cintia rce(s) Supporting Document(s) 25 <125 NT-PRO BNP eCW1 ([facility]) ID Date Data Source [id number] 11/05/2020 07:30:00 AM EST [facility] Name Value Range Interpretation Code Description Data Cintia rce(s) Supporting Document(s) SARS coronavirus 2 RNA Not Detected [facility] This lab was ordered by [facility] and reported by [facility]. ID Date Data Source [id number] 10/29/2020 07:35:00 AM EST [facility] Name Value Range Interpretation Code Description Data Cintia rce(s) Supporting Document(s) SARS coronavirus 2 RNA [facility] This lab was ordered by [facility] and reported by [facility]. ID Date Data Source [id number] 10/22/2020 09:30:00 AM EST [facility] Name Value Range Interpretation Code Description Data Cintia rce(s) Supporting Document(s) SARS coronavirus 2 RNA [facility] This lab was ordered by [facility] and reported by [facility]. ID Date Data Source [id number] 10/17/2020 11:35:00 AM EST [facility] Name Value Range Interpretation Code Description Data Cintia rce(s) Supporting Document(s) SARS coronavirus 2 RNA [facility] This lab was ordered by [facility] and reported by [facility]. ID Date Data Source [id number] 10/17/2020 12:00:00 AM EST [facility] Name Value Range Interpretation Code Description Data Cintia rce(s) Supporting Document(s) SARS-CoV2 Rapid Antigen [facility] This lab was ordered by [facility] and reported by [facility]. ID Date Data Source [id number] 10/12/2020 02:42:00 PM EST [facility] Name Value Range Interpretation Code Description Data Cintia rce(s) Supporting Document(s) SARS coronavirus 2 RNA [facility] This lab was ordered by [facility] and reported by [facility]. Procedure Social History Code Duration Value Status Description Data Source(s ) Smoking 09/09/2021 12:00:00 AM EST Former Smoker completed Former Smoker eCW1 ([facility]) Smoking 05/24/2021 12:00:00 AM EDT Former Smoker completed Former Smoker eCW1 ([facility]) Smoking 05/24/2021 12:00:00 AM EDT Former Smoker completed Former Smoker eCW1 ([facility]) Smoking 05/24/2021 12:00:00 AM EDT Former Smoker completed Former Smoker eCW1 ([facility]) Smoking 05/24/2021 12:00:00 AM EDT Former Smoker completed Former Smoker eCW1 ([facility]) Smoking 05/24/2021 12:00:00 AM EDT Former Smoker completed Former Smoker eCW1 ([facility]) Smoking 05/24/2021 12:00:00 AM EDT Former Smoker completed Former Smoker eCW1 ([facility]) Smoking 05/24/2021 12:00:00 AM EDT Former Smoker completed Former Smoker eCW1 ([facility]) Smoking 05/24/2021 12:00:00 AM EDT Former Smoker completed Former Smoker eCW1 ([facility]) Smoking 05/24/2021 12:00:00 AM EDT Former Smoker completed Former Smoker eCW1 ([facility]) Smoking 05/24/2021 12:00:00 AM EDT Former Smoker completed Former Smoker eCW1 ([facility]) Smoking 05/24/2021 12:00:00 AM EDT Former Smoker completed Former Smoker eCW1 ([facility]) Smoking 05/24/2021 12:00:00 AM EDT Former Smoker completed Former Smoker eCW1 ([facility]) Smoking 05/24/2021 12:00:00 AM EDT Former Smoker completed Former Smoker eCW1 ([facility]) Smoking 05/24/2021 12:00:00 AM EDT Former Smoker completed Former Smoker eCW1 ([facility]) Smoking 04/15/2021 12:00:00 AM EDT Former Smoker completed Former Smoker eCW1 ([facility]) Smoking 04/15/2021 12:00:00 AM EDT Former Smoker completed Former Smoker eCW1 ([facility]) Smoking 03/12/2021 12:00:00 AM EDT Former Smoker completed Former Smoker eCW1 ([facility]) Smoking 03/12/2021 12:00:00 AM EDT Former Smoker completed Former Smoker eCW1 ([facility]) Smoking 03/12/2021 12:00:00 AM EDT Former Smoker completed Former Smoker eCW1 ([facility]) Smoking 03/12/2021 12:00:00 AM EDT Former Smoker completed Former Smoker eCW1 ([facility]) Smoking 01/23/2021 12:00:00 AM EDT Former Smoker completed Former Smoker eCW1 ([facility]) Smoking 01/23/2021 12:00:00 AM EDT Former Smoker completed Former Smoker eCW1 ([facility]) Smoking 01/23/2021 12:00:00 AM EDT Former Smoker completed Former Smoker eCW1 ([facility]) Smoking 01/23/2021 12:00:00 AM EDT Former Smoker completed Former Smoker eCW1 ([facility]) Smoking 01/23/2021 12:00:00 AM EDT Former Smoker completed Former Smoker eCW1 ([facility]) Smoking 01/23/2021 12:00:00 AM EDT Former Smoker completed Former Smoker eCW1 ([facility]) Smoking 01/23/2021 12:00:00 AM EDT Former Smoker completed Former Smoker eCW1 ([facility]) Smoking 11/07/2020 12:00:00 AM EST Former Smoker completed Former Smoker eCW1 ([facility]) Smoking 11/07/2020 12:00:00 AM EST Former Smoker completed Former Smoker eCW1 ([facility]) Smoking 11/07/2020 12:00:00 AM EST Former Smoker completed Former Smoker eCW1 ([facility]) Smoking 11/07/2020 12:00:00 AM EST Former Smoker completed Former Smoker eCW1 ([facility]) Smoking 11/07/2020 12:00:00 AM EST Former Smoker completed Former Smoker eCW1 ([facility]) Smoking 11/07/2020 12:00:00 AM EST Former Smoker completed Former Smoker eCW1 ([facility]) Smoking 11/07/2020 12:00:00 AM EST Former Smoker completed Former Smoker eCW1 ([facility]) Smoking 11/07/2020 12:00:00 AM EST Former Smoker completed Former Smoker eCW1 ([facility]) Smoking 11/07/2020 12:00:00 AM EST Former Smoker completed Former Smoker eCW1 ([facility]) Smoking 11/07/2020 12:00:00 AM EST Former Smoker completed Former Smoker eCW1 ([facility]) Smoking 11/07/2020 12:00:00 AM EST Former Smoker completed Former Smoker eCW1 ([facility]) Smoking 11/07/2020 12:00:00 AM EST Former Smoker completed Former Smoker eCW1 ([facility]) Smoking 11/07/2020 12:00:00 AM EST Former Smoker completed Former Smoker eCW1 ([facility]) Smoking 11/07/2020 12:00:00 AM EST Former Smoker completed Former Smoker eCW1 ([facility]) Smoking 11/07/2020 12:00:00 AM EST Former Smoker completed Former Smoker eCW1 ([facility]) Smoking 11/07/2020 12:00:00 AM EST Former Smoker completed Former Smoker eCW1 ([facility]) Smoking 09/26/2020 12:00:00 AM EST Former Smoker completed Former Smoker eCW1 ([facility]) Smoking 09/26/2020 12:00:00 AM EST Former Smoker completed Former Smoker eCW1 ([facility]) Smoking 09/26/2020 12:00:00 AM EST Former Smoker completed Former Smoker eCW1 ([facility]) Smoking 09/26/2020 12:00:00 AM EST Former Smoker completed Former Smoker eCW1 ([facility]) Smoking 09/26/2020 12:00:00 AM EST Former Smoker completed Former Smoker eCW1 ([facility]) Smoking 09/26/2020 12:00:00 AM EST Former Smoker completed Former Smoker eCW1 ([facility]) Smoking 09/26/2020 12:00:00 AM EST Former Smoker completed Former Smoker eCW1 ([facility]) Smoking 09/26/2020 12:00:00 AM EST Former Smoker completed Former Smoker eCW1 ([facility]) Smoking 09/17/2020 12:00:00 AM EST Former Smoker completed Former Smoker eCW1 ([facility]) Smoking 09/17/2020 12:00:00 AM EST Former Smoker completed Former Smoker eCW1 ([facility]) Smoking 09/17/2020 12:00:00 AM EST Former Smoker completed Former Smoker eCW1 ([facility]) Smoking 09/17/2020 12:00:00 AM EST Former Smoker completed Former Smoker eCW1 ([facility]) Smoking 08/20/2020 12:00:00 AM EDT Former Smoker completed Former Smoker eCW1 ([facility]) Smoking 08/20/2020 12:00:00 AM EDT Former Smoker completed Former Smoker eCW1 ([facility]) Smoking 08/20/2020 12:00:00 AM EDT Former Smoker completed Former Smoker eCW1 ([facility]) Smoking 08/20/2020 12:00:00 AM EDT Former Smoker completed Former Smoker eCW1 ([facility]) Smoking 08/20/2020 12:00:00 AM EDT Former Smoker completed Former Smoker eCW1 ([facility]) Vital Signs ID Date Data Source UNK Name Value Range Interpretation Code Description Data Source(s) Body weight 218 [lb_av] 218 [lb_av] eCW1 (Replaced by [facility]) Body weight 98.88 kg 98.88 kg eCW1 ([facility]) Body height 68 [in_i] 68 [in_i] eCW1 ([facility]) Body mass index (BMI) [Ratio] 33.14 kg/m2 33.14 kg/m2 eCW1 ([facility]) Heart rate 102 /min 102 /min eCW1 ([facility]) Respiratory rate 18 /min 18 /min eCW1 ([facility]) Body temperature 97.4 [degF] 97.4 [degF] eCW1 ( [facility]) Systolic blood pressure 134 mm[Hg] 134 mm[Hg] e CW1 ([facility]) Diastolic blood pressure 80 mm[Hg] 80 mm[Hg] eCW1 ([facility]) Body height 66 [in_i] 66 [in_i] [facility] 5'6" Body weight 217.00 [lb_av] 217.00 [lb_av] MEDEN T ([facility]) Stated Systolic blood pressure 125 mm[Hg] 125 mm[Hg] M EDENT ([facility]) Diastolic blood pressure 76 mm[Hg] 76 mm[Hg] [facility] ([facility]) Heart rate 74 /min 74 /min [facility] ([facility]) Body mass index (BMI) [Ratio] 35.0 kg/m2 35.0 k g/m2 MEDENT ([facility]) Body weight 98.431 kg 98.431 kg [facility] ([facility]) Body temperature 98.1 [degF] 98.1 [degF] MEDENT ([facility]) Diastolic blood pressure 65 mm[Hg] 65 mm[Hg] [facility] ([facility] Body temperature 97.0 [degF] 97.0 [degF] MEDENT ([facility]) Heart rate 68 /min 68 /min MEDENT ([facility]) Systolic blood pressure 130 mm[Hg] 130 mm[Hg] M EDENT ([facility]) Body weight 216 [lb_av] 216 [lb_av] eCW1 (Replaced by [facility]) Body height 68 [in_i] 68 [in_i] eCW1 ([facility]) Body mass index (BMI) [Ratio] 32.84 kg/m2 32.84 kg/m2 eCW1 ([facility]) Heart rate 78 /min 78 /min eCW1 ([facility]) Respiratory rate 18 /min 18 /min eCW1 ([facility]) Body temperature 98.3 [degF] 98.3 [degF] eCW1 ( [facility]) Systolic blood pressure 134 mm[Hg] 134 mm[Hg] e CW1 ([facility]) Diastolic blood pressure 62 mm[Hg] 62 mm[Hg] eCW1 ([facility]) Body weight 216 [lb_av] 216 [lb_av] eCW1 (Replaced by [facility]) Body height 68 [in_i] 68 [in_i] eCW1 ([facility]) Body mass index (BMI) [Ratio] 32.84 kg/m2 32.84 kg/m2 eCW1 ([facility]) Heart rate 98 /min 98 /min eCW1 ([facility]) Respiratory rate 18 /min 18 /min eCW1 ([facility]) Body temperature 98.1 [degF] 98.1 [degF] eCW1 ( [facility]) Systolic blood pressure 140 mm[Hg] 140 mm[Hg] e CW1 ([facility]) Diastolic blood pressure 90 mm[Hg] 90 mm[Hg] eCW1 ([facility]) Body weight 219 [lb_av] 219 [lb_av] eCW1 (Replaced by [facility]) Body height 68 [in_i] 68 [in_i] eCW1 ([facility]) Body mass index (BMI) [Ratio] 33.30 kg/m2 33.30 kg/m2 eCW1 ([facility]) Heart rate 103 /min 103 /min eCW1 ([facility]) Respiratory rate 18 /min 18 /min eCW1 ([facility]) Body temperature 97.8 [degF] 97.8 [degF] eCW1 ( [facility]) Systolic blood pressure 140 mm[Hg] 140 mm[Hg] e CW1 ([facility]) Diastolic blood pressure 80 mm[Hg] 80 mm[Hg] eCW1 ([facility]) Body weight 218.8 [lb_av] 218.8 [lb_av] eCW1 ([facility]) Body height 68 [in_i] 68 [in_i] eCW1 ([facility]) Body mass index (BMI) [Ratio] 33.26 kg/m2 33.26 kg/m2 eCW1 ([facility]) Heart rate 100 /min 100 /min eCW1 ([facility]) Respiratory rate 18 /min 18 /min eCW1 ([facility]) Body temperature 98 [degF] 98 [degF] eCW1 ([facility]) Systolic blood pressure 150 mm[Hg] 150 mm[Hg] e CW1 ([facility]) Diastolic blood pressure 90 mm[Hg] 90 mm[Hg] eCW1 ([facility]) Body weight 201 [lb_av] 201 [lb_av] eCW1 (Replaced by [facility]) Body height 68 [in_i] 68 [in_i] eCW1 ([facility]) Body mass index (BMI) [Ratio] 30.56 kg/m2 30.56 kg/m2 eCW1 ([facility]) Heart rate 88 /min 88 /min eCW1 ([facility]) Respiratory rate 18 /min 18 /min eCW1 ([facility]) Body temperature 98.1 [degF] 98.1 [degF] eCW1 ( [facility]) Systolic blood pressure 124 mm[Hg] 124 mm[Hg] e CW1 ([facility]) Diastolic blood pressure 74 mm[Hg] 74 mm[Hg] eCW1 ([facility]) Body weight 190.00 [lb_av] 190.00 [lb_av] MEDEN T ([facility]) Body temperature 98.9 [degF] 98.9 [degF] MEDENT ([facility]) Respiratory rate 17 /min 17 /min MEDENT ( [facility]) Body weight 201 [lb_av] 201 [lb_av] eCW1 (Replaced by [facility]) Body height 68 [in_i] 68 [in_i] eCW1 ([facility]) Body mass index (BMI) [Ratio] 30.56 kg/m2 30.56 kg/m2 eCW1 ([facility]) Heart rate 92 /min 92 /min eCW1 ([facility]) Respiratory rate 16 /min 16 /min eCW1 ([facility]) Body temperature 98.6 [degF] 98.6 [degF] eCW1 ( [facility]) Systolic blood pressure 144 mm[Hg] 144 mm[Hg] e CW1 ([facility]) Diastolic blood pressure 78 mm[Hg] 78 mm[Hg] eCW1 ([facility]) Body weight 197.8 [lb_av] 197.8 [lb_av] eCW1 ([facility]) Body height 68 [in_i] 68 [in_i] eCW1 ([facility]) Body mass index (BMI) [Ratio] 30.07 kg/m2 30.07 kg/m2 eCW1 ([facility]) Heart rate 95 /min 95 /min eCW1 ([facility]) Respiratory rate 18 /min 18 /min eCW1 ([facility]) Body temperature 97.1 [degF] 97.1 [degF] eCW1 ( [facility]) Systolic blood pressure 124 mm[Hg] 124 mm[Hg] e CW1 ([facility]) Diastolic blood pressure 74 mm[Hg] 74 mm[Hg] eCW1 ([facility]) Patient Treatment Plan of Care Planned Activity Planned Date Details Description Data Source (s) Zolpidem tartrate 5 MG Oral Tablet [Ambien] 09/03/2021 12:00:00 AM EDT eCW1 ([facility]) Zolpidem tartrate 5 MG Oral Tablet [Ambien] 09/03/2021 12:00:00 AM EDT eCW1 ([facility]) atorvastatin 80 MG Oral Tablet 08/28/2021 12:00:00 AM EDT eCW1 ([facility]) atorvastatin 80 MG Oral Tablet 08/28/2021 12:00:00 AM EDT eCW1 ([facility]) atorvastatin 80 MG Oral Tablet 08/28/2021 12:00:00 AM EDT eCW1 ([facility]) atorvastatin 80 MG Oral Tablet 08/28/2021 12:00:00 AM EDT eCW1 ([facility]) Zolpidem tartrate 5 MG Oral Tablet [Ambien] 08/06/2021 12:00:00 AM EDT eCW1 ([facility]) Zolpidem tartrate 5 MG Oral Tablet [Ambien] 08/06/2021 12:00:00 AM EDT eCW1 ([facility]) Zolpidem tartrate 5 MG Oral Tablet [Ambien] 08/06/2021 12:00:00 AM EDT eCW1 ([facility]) Zolpidem tartrate 5 MG Oral Tablet [Ambien] 08/06/2021 12:00:00 AM EDT eCW1 ([facility]) Zolpidem tartrate 5 MG Oral Tablet [Ambien] 08/06/2021 12:00:00 AM EDT eCW1 ([facility]) Zolpidem tartrate 5 MG Oral Tablet [Ambien] 07/05/2021 12:00:00 AM EDT eCW1 ([facility]) Zolpidem tartrate 5 MG Oral Tablet [Ambien] 07/05/2021 12:00:00 AM EDT eCW1 ([facility]) Zolpidem tartrate 5 MG Oral Tablet [Ambien] 06/03/2021 12:00:00 AM EDT eCW1 ([facility]) Zolpidem tartrate 5 MG Oral Tablet [Ambien] 06/03/2021 12:00:00 AM EDT eCW1 ([facility]) Zolpidem tartrate 5 MG Oral Tablet [Ambien] 06/03/2021 12:00:00 AM EDT eCW1 ([facility]) Zolpidem tartrate 5 MG Oral Tablet [Ambien] 06/03/2021 12:00:00 AM EDT eCW1 ([facility]) tramadol hydrochloride 50 MG Oral Tablet 04/10/2021 12:00:00 AM EDT eCW1 ([facility]) tramadol hydrochloride 50 MG Oral Tablet 04/10/2021 12:00:00 AM EDT eCW1 ([facility]) tramadol hydrochloride 50 MG Oral Tablet 04/10/2021 12:00:00 AM EDT eCW1 ([facility]) tramadol hydrochloride 50 MG Oral Tablet 04/10/2021 12:00:00 AM EDT eCW1 ([facility]) tramadol hydrochloride 50 MG Oral Tablet 04/10/2021 12:00:00 AM EDT eCW1 ([facility]) tramadol hydrochloride 50 MG Oral Tablet 04/10/2021 12:00:00 AM EDT eCW1 ([facility]) tramadol hydrochloride 50 MG Oral Tablet 04/10/2021 12:00:00 AM EDT eCW1 ([facility]) tramadol hydrochloride 50 MG Oral Tablet 04/10/2021 12:00:00 AM EDT eCW1 ([facility]) tramadol hydrochloride 50 MG Oral Tablet 04/10/2021 12:00:00 AM EDT eCW1 ([facility]) tramadol hydrochloride 50 MG Oral Tablet 04/10/2021 12:00:00 AM EDT eCW1 ([facility]) tramadol hydrochloride 50 MG Oral Tablet 04/10/2021 12:00:00 AM EDT eCW1 ([facility]) tramadol hydrochloride 50 MG Oral Tablet 04/10/2021 12:00:00 AM EDT eCW1 ([facility]) tramadol hydrochloride 50 MG Oral Tablet 04/10/2021 12:00:00 AM EDT eCW1 ([facility]) tramadol hydrochloride 50 MG Oral Tablet 04/10/2021 12:00:00 AM EDT eCW1 ([facility]) tramadol hydrochloride 50 MG Oral Tablet 04/10/2021 12:00:00 AM EDT eCW1 ([facility]) tramadol hydrochloride 50 MG Oral Tablet 04/10/2021 12:00:00 AM EDT eCW1 ([facility]) Aspirin 81 MG Delayed Release Oral Tablet 03/12/2021 12:00:00 AM ED T eCW1 ([facility]) Aspirin 81 MG Delayed Release Oral Tablet 03/12/2021 12:00:00 AM ED T eCW1 ([facility]) Aspirin 81 MG Delayed Release Oral Tablet 03/12/2021 12:00:00 AM ED T eCW1 ([facility]) Aspirin 81 MG Delayed Release Oral Tablet 03/12/2021 12:00:00 AM ED T eCW1 ([facility]) Aspirin 81 MG Delayed Release Oral Tablet 03/12/2021 12:00:00 AM ED T eCW1 ([facility]) Aspirin 81 MG Delayed Release Oral Tablet 03/12/2021 12:00:00 AM ED T eCW1 ([facility]) Aspirin 81 MG Delayed Release Oral Tablet 03/12/2021 12:00:00 AM ED T eCW1 ([facility]) Aspirin 81 MG Delayed Release Oral Tablet 03/12/2021 12:00:00 AM ED T eCW1 ([facility]) Aspirin 81 MG Delayed Release Oral Tablet 03/12/2021 12:00:00 AM ED T eCW1 ([facility]) Aspirin 81 MG Delayed Release Oral Tablet 03/12/2021 12:00:00 AM ED T eCW1 ([facility]) Aspirin 81 MG Delayed Release Oral Tablet 03/12/2021 12:00:00 AM ED T eCW1 ([facility]) Aspirin 81 MG Delayed Release Oral Tablet 03/12/2021 12:00:00 AM ED T eCW1 ([facility]) Zolpidem tartrate 5 MG Oral Tablet [Ambien] 03/12/2021 12:00:00 AM EDT eCW1 ([facility]) Aspirin 81 MG Delayed Release Oral Tablet 03/12/2021 12:00:00 AM ED T eCW1 ([facility]) Aspirin 81 MG Delayed Release Oral Tablet 03/12/2021 12:00:00 AM ED T eCW1 ([facility]) Aspirin 81 MG Delayed Release Oral Tablet 03/12/2021 12:00:00 AM ED T eCW1 ([facility]) Aspirin 81 MG Delayed Release Oral Tablet 03/12/2021 12:00:00 AM ED T eCW1 ([facility]) Zolpidem tartrate 5 MG Oral Tablet [Ambien] 03/12/2021 12:00:00 AM EDT eCW1 ([facility]) Zolpidem tartrate 5 MG Oral Tablet [Ambien] 03/12/2021 12:00:00 AM EDT eCW1 ([facility]) Zolpidem tartrate 5 MG Oral Tablet [Ambien] 03/12/2021 12:00:00 AM EDT eCW1 ([facility]) Zolpidem tartrate 5 MG Oral Tablet [Ambien] 03/12/2021 12:00:00 AM EDT eCW1 ([facility]) Zolpidem tartrate 5 MG Oral Tablet [Ambien] 03/12/2021 12:00:00 AM EDT eCW1 ([facility]) Aspirin 81 MG Delayed Release Oral Tablet 03/12/2021 12:00:00 AM ED T eCW1 ([facility]) Zolpidem tartrate 5 MG Oral Tablet [Ambien] 03/12/2021 12:00:00 AM EDT eCW1 ([facility]) Aspirin 81 MG Delayed Release Oral Tablet 03/12/2021 12:00:00 AM ED T eCW1 ([facility]) 8 HR Acetaminophen 650 MG Extended Release Oral Tablet 01/24/2021 12:00:00 AM EDT eCW1 ([facility]) 8 HR Acetaminophen 650 MG Extended Release Oral Tablet 01/24/2021 12:00:00 AM EDT eCW1 ([facility]) 8 HR Acetaminophen 650 MG Extended Release Oral Tablet 01/24/2021 12:00:00 AM EDT eCW1 ([facility]) 8 HR Acetaminophen 650 MG Extended Release Oral Tablet 01/24/2021 12:00:00 AM EDT eCW1 ([facility]) 8 HR Acetaminophen 650 MG Extended Release Oral Tablet 01/24/2021 12:00:00 AM EDT eCW1 ([facility]) 8 HR Acetaminophen 650 MG Extended Release Oral Tablet 01/24/2021 12:00:00 AM EDT eCW1 ([facility]) Acetaminophen 325 MG Oral Tablet [Tylenol] 01/23/2021 12:00:00 AM E DT eCW1 ([facility]) Acetaminophen 325 MG Oral Tablet [Tylenol] 01/23/2021 12:00:00 AM E DT eCW1 ([facility]) Acetaminophen 325 MG Oral Tablet [Tylenol] 01/23/2021 12:00:00 AM E DT eCW1 ([facility]) Acetaminophen 325 MG Oral Tablet [Tylenol] 01/23/2021 12:00:00 AM E DT eCW1 ([facility]) Acetaminophen 325 MG Oral Tablet [Tylenol] 01/23/2021 12:00:00 AM E DT eCW1 ([facility]) Acetaminophen 325 MG Oral Tablet [Tylenol] 01/23/2021 12:00:00 AM E DT eCW1 ([facility]) Acetaminophen 325 MG Oral Tablet [Tylenol] 01/23/2021 12:00:00 AM E DT eCW1 ([facility]) Trazodone Hydrochloride 50 MG Oral Tablet 01/22/2021 12:00:00 AM ED T eCW1 ([facility]) Trazodone Hydrochloride 50 MG Oral Tablet 01/22/2021 12:00:00 AM ED T eCW1 ([facility]) Trazodone Hydrochloride 50 MG Oral Tablet 01/22/2021 12:00:00 AM ED T eCW1 ([facility]) Trazodone Hydrochloride 50 MG Oral Tablet 01/22/2021 12:00:00 AM ED T eCW1 ([facility]) Trazodone Hydrochloride 50 MG Oral Tablet 01/22/2021 12:00:00 AM ED T eCW1 ([facility]) Trazodone Hydrochloride 50 MG Oral Tablet 01/22/2021 12:00:00 AM ED T eCW1 ([facility]) Trazodone Hydrochloride 50 MG Oral Tablet 01/22/2021 12:00:00 AM ED T eCW1 ([facility]) POLYETHYLENE GLYCOL 3350 142 MG/ML Oral Solution [Celeste lax] 01/01/2021 12:00:00 AM EST eCW1 ([facility]) POLYETHYLENE GLYCOL 3350 142 MG/ML Oral Solution [Celeste lax] 01/01/2021 12:00:00 AM EST eCW1 ([facility]) POLYETHYLENE GLYCOL 3350 142 MG/ML Oral Solution [Celeste lax] 01/01/2021 12:00:00 AM EST eCW1 ([facility]) POLYETHYLENE GLYCOL 3350 142 MG/ML Oral Solution [Celeste lax] 01/01/2021 12:00:00 AM EST eCW1 ([facility]) POLYETHYLENE GLYCOL 3350 142 MG/ML Oral Solution [Celeste lax] 01/01/2021 12:00:00 AM EST eCW1 ([facility]) POLYETHYLENE GLYCOL 3350 142 MG/ML Oral Solution [Celeste lax] 01/01/2021 12:00:00 AM EST eCW1 ([facility]) POLYETHYLENE GLYCOL 3350 142 MG/ML Oral Solution [Celeste lax] 01/01/2021 12:00:00 AM EST eCW1 ([facility]) POLYETHYLENE GLYCOL 3350 142 MG/ML Oral Solution [Celeste lax] 01/01/2021 12:00:00 AM EST eCW1 ([facility]) POLYETHYLENE GLYCOL 3350 142 MG/ML Oral Solution [Celeste lax] 01/01/2021 12:00:00 AM EST eCW1 ([facility]) POLYETHYLENE GLYCOL 3350 142 MG/ML Oral Solution [Celeste lax] 01/01/2021 12:00:00 AM EST eCW1 ([facility]) POLYETHYLENE GLYCOL 3350 142 MG/ML Oral Solution [Celeste lax] 01/01/2021 12:00:00 AM EST eCW1 ([facility]) POLYETHYLENE GLYCOL 3350 142 MG/ML Oral Solution [Celeste lax] 01/01/2021 12:00:00 AM EST eCW1 ([facility]) POLYETHYLENE GLYCOL 3350 142 MG/ML Oral Solution [Celeste lax] 01/01/2021 12:00:00 AM EST eCW1 ([facility]) POLYETHYLENE GLYCOL 3350 142 MG/ML Oral Solution [Celeste lax] 01/01/2021 12:00:00 AM EST eCW1 ([facility]) POLYETHYLENE GLYCOL 3350 142 MG/ML Oral Solution [Celeste lax] 01/01/2021 12:00:00 AM EST eCW1 ([facility]) POLYETHYLENE GLYCOL 3350 142 MG/ML Oral Solution [Celeste lax] 01/01/2021 12:00:00 AM EST eCW1 ([facility]) POLYETHYLENE GLYCOL 3350 142 MG/ML Oral Solution [Celeste lax] 01/01/2021 12:00:00 AM EST eCW1 ([facility]) POLYETHYLENE GLYCOL 3350 142 MG/ML Oral Solution [Celeste lax] 01/01/2021 12:00:00 AM EST eCW1 ([facility]) POLYETHYLENE GLYCOL 3350 142 MG/ML Oral Solution [Celeste lax] 01/01/2021 12:00:00 AM EST eCW1 ([facility]) POLYETHYLENE GLYCOL 3350 142 MG/ML Oral Solution [Celeste lax] 01/01/2021 12:00:00 AM EST eCW1 ([facility]) May Have - 12/24/2020 12:00:00 AM EST e CW1 ([facility]) May Have - 12/24/2020 12:00:00 AM EST e CW1 ([facility]) May Have - 12/24/2020 12:00:00 AM EST e CW1 ([facility]) May Have - 12/24/2020 12:00:00 AM EST e CW1 ([facility]) May Have - 12/24/2020 12:00:00 AM EST e CW1 ([facility]) May Have - 12/24/2020 12:00:00 AM EST e CW1 ([facility]) May Have - 12/24/2020 12:00:00 AM EST e CW1 ([facility]) May Have 1 11/30/2020 12:00:00 AM EST e CW1 ([facility]) May Have 11/30/2020 12:00:00 AM EST e CW1 ([facility]) May Have 1 11/30/2020 12:00:00 AM EST e CW1 ([facility]) May Have 11/30/2020 12:00:00 AM EST e CW1 ([facility]) May Have 1 11/30/2020 12:00:00 AM EST e CW1 ([facility]) May Have 11/30/2020 12:00:00 AM EST e CW1 ([facility]) May Have 11/30/2020 12:00:00 AM EST e CW1 ([facility]) May Have 11/30/2020 12:00:00 AM EST e CW1 ([facility]) May Have 11/30/2020 12:00:00 AM EST e CW1 ([facility]) May Have 11/30/2020 12:00:00 AM EST e CW1 ([facility]) BD AutoShield Duo 30G X 5 MM 11/13/2020 12:00:00 AM EST eCW1 ([facility]) BD AutoShield Duo 30G X 5 MM 11/13/2020 12:00:00 AM EST eCW1 ([facility]) BD AutoShield Duo 30G X 5 MM 11/13/2020 12:00:00 AM EST eCW1 ([facility]) BD AutoShield Duo 30G X 5 MM 11/13/2020 12:00:00 AM EST eCW1 ([facility]) BD AutoShield Duo 30G X 5 MM 11/13/2020 12:00:00 AM EST eCW1 ([facility]) BD AutoShield Duo 30G X 5 MM 11/13/2020 12:00:00 AM EST eCW1 ([facility]) BD AutoShield Duo 30G X 5 MM 11/13/2020 12:00:00 AM EST eCW1 ([facility]) BD AutoShield Duo 30G X 5 MM 11/13/2020 12:00:00 AM EST eCW1 ([facility]) BD AutoShield Duo 30G X 5 MM 11/13/2020 12:00:00 AM EST eCW1 ([facility]) BD AutoShield Duo 30G X 5 MM 11/13/2020 12:00:00 AM EST eCW1 ([facility]) BD AutoShield Duo 30G X 5 MM 11/13/2020 12:00:00 AM EST eCW1 ([facility]) BD AutoShield Duo 30G X 5 MM 11/13/2020 12:00:00 AM EST eCW1 ([facility]) BD AutoShield Duo 30G X 5 MM 11/13/2020 12:00:00 AM EST eCW1 ([facility]) Warfarin Sodium 5 MG Oral Tablet 11/09/2020 12:00:00 AM EST eCW1 ([facility]) Warfarin Sodium 5 MG Oral Tablet 11/09/2020 12:00:00 AM EST eCW1 ([facility]) Warfarin Sodium 5 MG Oral Tablet 11/09/2020 12:00:00 AM EST eCW1 ([facility]) Warfarin Sodium 5 MG Oral Tablet 11/09/2020 12:00:00 AM EST eCW1 ([facility]) Warfarin Sodium 5 MG Oral Tablet 11/09/2020 12:00:00 AM EST eCW1 ([facility]) Warfarin Sodium 5 MG Oral Tablet 11/09/2020 12:00:00 AM EST eCW1 ([facility]) Warfarin Sodium 5 MG Oral Tablet 11/09/2020 12:00:00 AM EST eCW1 ([facility]) Warfarin Sodium 5 MG Oral Tablet 11/09/2020 12:00:00 AM EST eCW1 ([facility]) Warfarin Sodium 5 MG Oral Tablet 11/09/2020 12:00:00 AM EST eCW1 ([facility]) Warfarin Sodium 5 MG Oral Tablet 11/09/2020 12:00:00 AM EST eCW1 ([facility]) Warfarin Sodium 5 MG Oral Tablet 11/09/2020 12:00:00 AM EST eCW1 ([facility]) Warfarin Sodium 5 MG Oral Tablet 11/09/2020 12:00:00 AM EST eCW1 ([facility]) Warfarin Sodium 5 MG Oral Tablet 11/09/2020 12:00:00 AM EST eCW1 ([facility]) Warfarin Sodium 5 MG Oral Tablet 11/09/2020 12:00:00 AM EST eCW1 ([facility]) Warfarin Sodium 5 MG Oral Tablet 11/09/2020 12:00:00 AM EST eCW1 ([facility]) Warfarin Sodium 5 MG Oral Tablet 11/09/2020 12:00:00 AM EST eCW1 ([facility]) Warfarin Sodium 5 MG Oral Tablet 11/09/2020 12:00:00 AM EST eCW1 ([facility]) Warfarin Sodium 5 MG Oral Tablet 11/09/2020 12:00:00 AM EST eCW1 ([facility]) Warfarin Sodium 5 MG Oral Tablet 11/09/2020 12:00:00 AM EST eCW1 ([facility]) Warfarin Sodium 5 MG Oral Tablet 11/09/2020 12:00:00 AM EST eCW1 ([facility]) Warfarin Sodium 5 MG Oral Tablet 11/09/2020 12:00:00 AM EST eCW1 ([facility]) Warfarin Sodium 5 MG Oral Tablet 11/09/2020 12:00:00 AM EST eCW1 ([facility]) Warfarin Sodium 5 MG Oral Tablet 11/09/2020 12:00:00 AM EST eCW1 ([facility]) Warfarin Sodium 5 MG Oral Tablet 11/09/2020 12:00:00 AM EST eCW1 ([facility]) Warfarin Sodium 5 MG Oral Tablet 11/09/2020 12:00:00 AM EST eCW1 ([facility]) Warfarin Sodium 5 MG Oral Tablet 11/09/2020 12:00:00 AM EST eCW1 ([facility]) Warfarin Sodium 5 MG Oral Tablet 11/09/2020 12:00:00 AM EST eCW1 ([facility]) Warfarin Sodium 5 MG Oral Tablet 10/08/2020 12:00:00 AM EST eCW1 ([facility]) Warfarin Sodium 5 MG Oral Tablet 10/08/2020 12:00:00 AM EST eCW1 ([facility]) Warfarin Sodium 5 MG Oral Tablet 10/08/2020 12:00:00 AM EST eCW1 ([facility]) Warfarin Sodium 5 MG Oral Tablet 10/08/2020 12:00:00 AM EST eCW1 ([facility]) Warfarin Sodium 5 MG Oral Tablet 10/08/2020 12:00:00 AM EST eCW1 ([facility]) Warfarin Sodium 5 MG Oral Tablet 10/08/2020 12:00:00 AM EST eCW1 ([facility]) Warfarin Sodium 5 MG Oral Tablet 10/05/2020 12:00:00 AM EST eCW1 ([facility]) Warfarin Sodium 5 MG Oral Tablet 10/05/2020 12:00:00 AM EST eCW1 ([facility]) Tylenol Extra Strength 500 MG 09/19/2020 12:00:00 AM EST eCW1 ([facility]) Tylenol Extra Strength 500 MG 09/19/2020 12:00:00 AM EST eCW1 ([facility]) Tylenol Extra Strength 500 MG 09/19/2020 12:00:00 AM EST eCW1 ([facility]) Tylenol Extra Strength 500 MG 09/19/2020 12:00:00 AM EST eCW1 ([facility]) Menthol 100 MG/ML / methyl salicylate 150 MG/ML Topica l Cream 09/17/2020 12:00:00 AM EST eCW1 ([facility]) Menthol 100 MG/ML / methyl salicylate 150 MG/ML Topica l Cream 09/17/2020 12:00:00 AM EST eCW1 ([facility]) Menthol 100 MG/ML / methyl salicylate 150 MG/ML Topica l Cream 09/17/2020 12:00:00 AM EST eCW1 ([facility]) Menthol 100 MG/ML / methyl salicylate 150 MG/ML Topica l Cream 09/17/2020 12:00:00 AM EST eCW1 ([facility]) Warfarin Sodium 7.5 MG Oral Tablet 09/11/2020 12:00:00 AM EST eCW1 ([facility]) Warfarin Sodium 7.5 MG Oral Tablet 09/11/2020 12:00:00 AM EST eCW1 ([facility]) Warfarin Sodium 7.5 MG Oral Tablet 09/11/2020 12:00:00 AM EST eCW1 ([facility]) Warfarin Sodium 7.5 MG Oral Tablet 09/11/2020 12:00:00 AM EST eCW1 ([facility]) Warfarin Sodium 7.5 MG Oral Tablet 09/11/2020 12:00:00 AM EST eCW1 ([facility]) Warfarin Sodium 7.5 MG Oral Tablet 09/11/2020 12:00:00 AM EST eCW1 ([facility]) Warfarin Sodium 7.5 MG Oral Tablet 09/11/2020 12:00:00 AM EST eCW1 ([facility]) Warfarin Sodium 7.5 MG Oral Tablet 09/11/2020 12:00:00 AM EST eCW1 ([facility]) Warfarin Sodium 7.5 MG Oral Tablet 09/11/2020 12:00:00 AM EST eCW1 ([facility]) 3 ML Insulin Glargine 100 UNT/ML Pen Injector [Lantus] 08/21/2020 12:00:00 AM EDT eCW1 ([facility]) 3 ML Insulin Glargine 100 UNT/ML Pen Injector [Lantus] 08/21/2020 12:00:00 AM EDT eCW1 ([facility]) 3 ML Insulin Glargine 100 UNT/ML Pen Injector [Lantus] 08/21/2020 12:00:00 AM EDT eCW1 ([facility]) 3 ML Insulin Glargine 100 UNT/ML Pen Injector [Lantus] 08/21/2020 12:00:00 AM EDT eCW1 ([facility]) 3 ML Insulin Glargine 100 UNT/ML Pen Injector [Lantus] 08/21/2020 12:00:00 AM EDT eCW1 ([facility]) 3 ML Insulin Glargine 100 UNT/ML Pen Injector [Lantus] 08/21/2020 12:00:00 AM EDT eCW1 ([facility]) 3 ML Insulin Glargine 100 UNT/ML Pen Injector [Lantus] 08/21/2020 12:00:00 AM EDT eCW1 ([facility]) 3 ML Insulin Glargine 100 UNT/ML Pen Injector [Lantus] 08/21/2020 12:00:00 AM EDT eCW1 ([facility]) 3 ML Insulin Glargine 100 UNT/ML Pen Injector [Lantus] 08/21/2020 12:00:00 AM EDT eCW1 ([facility]) 3 ML Insulin Glargine 100 UNT/ML Pen Injector [Lantus] 08/21/2020 12:00:00 AM EDT eCW1 ([facility]) 3 ML Insulin Glargine 100 UNT/ML Pen Injector [Lantus] 08/21/2020 12:00:00 AM EDT eCW1 ([facility]) 3 ML Insulin Glargine 100 UNT/ML Pen Injector [Lantus] 08/21/2020 12:00:00 AM EDT eCW1 ([facility]) 3 ML Insulin Glargine 100 UNT/ML Pen Injector [Lantus] 08/21/2020 12:00:00 AM EDT eCW1 ([facility]) 3 ML Insulin Glargine 100 UNT/ML Pen Injector [Lantus] 08/21/2020 12:00:00 AM EDT eCW1 ([facility]) 3 ML Insulin Glargine 100 UNT/ML Pen Injector [Lantus] 08/21/2020 12:00:00 AM EDT eCW1 ([facility]) 3 ML Insulin Glargine 100 UNT/ML Pen Injector [Lantus] 08/21/2020 12:00:00 AM EDT eCW1 ([facility]) 3 ML Insulin Glargine 100 UNT/ML Pen Injector [Lantus] 08/21/2020 12:00:00 AM EDT eCW1 ([facility]) 3 ML Insulin Glargine 100 UNT/ML Pen Injector [Lantus] 08/21/2020 12:00:00 AM EDT eCW1 ([facility]) 3 ML Insulin Glargine 100 UNT/ML Pen Injector [Lantus] 08/21/2020 12:00:00 AM EDT eCW1 ([facility]) 3 ML Insulin Glargine 100 UNT/ML Pen Injector [Lantus] 08/21/2020 12:00:00 AM EDT eCW1 ([facility]) 3 ML Insulin Glargine 100 UNT/ML Pen Injector [Lantus] 08/21/2020 12:00:00 AM EDT eCW1 ([facility]) 3 ML Insulin Glargine 100 UNT/ML Pen Injector [Lantus] 08/21/2020 12:00:00 AM EDT eCW1 ([facility]) sitagliptin 50 MG Oral Tablet [Januvia] 08/20/2020 12:00:00 AM EDT eCW1 ([facility]) BD Ultra-fine Pen [place] 32G 4mm 08/20/2020 12:00:00 AM EDT eCW1 ([facility]) BD Ultra-fine Pen [place] 32G 4mm 08/20/2020 12:00:00 AM EDT eCW1 ([facility]) sitagliptin 50 MG Oral Tablet [Januvia] 08/20/2020 12:00:00 AM EDT eCW1 ([facility]) BD Ultra-fine Pen [place] 32G 4mm 08/20/2020 12:00:00 AM EDT eCW1 ([facility]) sitagliptin 50 MG Oral Tablet [Novuvia] 08/20/2020 12:00:00 AM EDT eCW1 ([facility]) BD Ultra-fine Pen [place] 32G 4mm 08/20/2020 12:00:00 AM EDT eCW1 ([facility]) sitagliptin 50 MG Oral Tablet [Novuvia] 08/20/2020 12:00:00 AM EDT eCW1 ([facility]) BD Ultra-fine Pen [place] 32G 4mm 08/20/2020 12:00:00 AM EDT eCW1 ([facility]) sitagliptin 50 MG Oral Tablet [Novuvia] 08/20/2020 12:00:00 AM EDT eCW1 ([facility])
[2021-09-16] MEDS ORDERED: FAMOTIDINE 20 MG TAB PO SCH (21:00)
[2021-09-16] MEDS ORDERED: ANALGESIC BALM CRM 3OZ TOP PRN (21:45)
[2021-09-16] MEDS ORDERED: hydrOXYzine 10 MG TAB PO PRN (21:45)
[2021-09-17] VITALS (9 sets, daily range): BP systolic 120–142; BP diastolic 72–88
[2021-09-17] MEDS: GASTROGRAFIN SOLUTION 30ML PO SCH (00:28)
[2021-09-17] MEDS: LEVEMIR (INSULIN DETEMIR) 1 UNITS/0.01ML SC SCH ×2 (00:29→22:52)
[2021-09-17] MEDS: HumaLOG INSULIN (NovoLOG) PER UNIT SC SCH ×5 (00:29→22:42)
[2021-09-17] MEDS: SERTRALINE 100 MG TAB PO SCH ×2 (00:37→23:01)
[2021-09-17] MEDS: GABAPENTIN 100 MG CAP PO SCH ×4 (00:38→23:01)
[2021-09-17] MEDS: SUCRALFATE SUSP 1GM/10ML UD PO SCH ×6 (00:38→23:00)
[2021-09-17] MEDS: traZODone 50 MG TAB PO SCH ×2 (00:38→23:01)
[2021-09-17] MEDS: zolPIDEM TARTRATE 5 MG TAB PO SCH ×2 (00:38→23:01)
[2021-09-17] MEDS: ATORVASTATIN 20 MG TAB PO SCH ×2 (00:38→23:01)
--- NOTE | 2021-09-17 01:01 | REPVR ---
PROCEDURE INFORMATION: Exam: CT Abdomen And Pelvis With Contrast Exam date and time: 09/16/2021 11:36 PM Age: 66 years old Clinical indication: Other: Gi bleed TECHNIQUE: Imaging protocol: Computed tomography of the abdomen and pelvis with contrast. Radiation optimization: All CT scans at this facility use at least one of these dose optimization techniques: automated exposure control; mA and/or kV adjustment per patient size (includes targeted exams where dose is matched to clinical indication); or iterative reconstruction. Contrast material: ISOVUE 370; Contrast volume: 100 ml; Contrast route: INTRAVENOUS (IV); COMPARISON: CT ABD/PEL W/IV CONTRAST ONLY 08/17/2020 8:33 AM FINDINGS: LUNG BASES: No infiltrate or effusion. - VASCULAR: Visualized cardiac size is at the upper end of normal. Trace pericardial effusion is seen. No abdominoaortic aneurysm, dissection or retroperitoneal hematoma. There is atherosclerosis. - PERITONEAL : No free air or free fluid. - GI: No hiatal hernia. The stomach contains some contrast and gas. The stomach is not sufficiently distended to evaluate wall thickening. The proximal duodenum appears slightly thick-walled. This could be artifactual secondary to insufficient distention. If there are related symptoms, consider dedicated evaluation. - No appearance of a small-bowel obstruction. No focal mesenteric inflammation. No mesenteric lymphadenopathy by size criteria. - Scattered fecal material and gas slightly distending portions of the colon and rectum could be correlated for mild constipation. Perianal inflammation cannot be excluded. There is diverticulosis but no evidence of acute diverticulitis.. The appendix does not appear inflamed. - HEPATOBILIARY, PANCREAS, SPLEEN: Hepatic length is 16 cm. Evaluation of hepatic parenchyma is slightly compromised by beam hardening artifacts. No calcified gallstones or significant biliary dilation. No pancreatic inflammation. Spleen not enlarged. - ADRENALS, KIDNEYS, BLADDER, RETROPERITONEAL: Adrenals within normal limits. No hydronephrosis. Symmetric renal enhancement. Areas of cortical thinning involving the left kidney may be related to scarring or developmental. No perivesical stranding. No bladder wall thickening. - PELVIC: No dominant cystic pelvic mass seen. Gas within the vagina may be iatrogenic. - MUSCULOSKELETAL: Tiny fat containing umbilical hernia. Subcutaneous stranding along the lateral aspects of the lower abdominal body wall bilaterally are of uncertain significance. This could be due to edema, cellulitis or soft tissue contusions. Degenerative changes of the spine are noted. Severe osteoarthritic changes of the hips. No acute fracture or suspicious bone lesion. - IMPRESSION: No free-air, free-fluid or focal mesenteric inflammation. Nonspecific gastrointestinal findings to be correlated clinically are discussed above. - Other incidental findings discussed above. Electronically signed by: Adriano Rodriguez On 09/17/2021 01:00:26 AM
[2021-09-17 06:54] LABS: CALCIUM LEVEL 8.6 MG/DL (8.8-10.2); CREATININE FOR GFR 1.11 MG/DL (0.55-1.30); GLOMERULAR FILTRATION RATE 52.5 (>45); MAGNESIUM LEVEL 2.3 MG/DL (1.8-2.4); POTASSIUM SERUM 4.2 MEQ/L (3.5-5.1)
[2021-09-17 06:56] LABS: INR 2.6; PROTHROMBIN TIME 28.2 SECONDS (12.7-14.5)
[2021-09-17 06:58] LABS: PERCENT SATURATION 6.2 % (13.2-45.0)
[2021-09-17 07:01] LABS: HEMATOCRIT 31.4 % (36.0-47.0); MEAN CORPUSCULAR HEMOGLOBIN 20.6 pg (27.0-33.0); MEAN CORPUSCULAR HGB CONC 29.3 g/dl (32.0-36.5); MEAN CORPUSCULAR VOLUME 70.4 fl (80.0-96.0); PLATELET COUNT, AUTOMATED 309 10^3/uL (150-450); RED BLOOD COUNT 4.46 10^6/uL (4.00-5.40); WHITE BLOOD COUNT 9.5 10^3/uL (4.0-10.0)
[2021-09-17 07:05] LABS: HEMOGLOBIN 9.2 g/dl (12.0-15.5)
[2021-09-17] MEDS: PANTOPRAZOLE 40MG VIAL (C9113 PER 1) IV SCH ×2 (08:40→23:00)
[2021-09-17] MEDS: FLUTICASONE PROP 0.05% NASAL SPRAY 16 GM (FLONASE) NARES SCH (08:41)
[2021-09-17] MEDS: ASPIRIN 81MG ENTERIC TABLET PO SCH (08:41)
[2021-09-17] MEDS: HYDROXYCHLOROQUINE 200 MG TAB PO SCH (08:41)
[2021-09-17 09:41] LABS: FOLATE 8.8 NG/ML (>5.4)
[2021-09-17] MEDS ORDERED: IRON SUCROSE 500 MG in NS 250 ML IV ONE (11:00)
--- NOTE | 2021-09-17 11:18 | ECGEPIP ---
[facility] - ED Test Date: 2021-09-16 Pat Name: GRAY JOHNSON Department: Room: [place] [address] Gender: Female Ways Operator: vitaliy : 1955 Requested By: Airam Stroud Order Number: [id number] Reading MD: Rufus Pizano Measurements Intervals [place] Rate: 79 P: 50 GA: 152 QRS: 15 QRSD: 76 T: 43 QT: 406 QTc: 465 Interpretive Statements Normal sinus rhythm POOR R WAVE PROGRESSION NSTTW ABNORMALITY(S) SIMILAR TO 04/07/21 Electronically Signed on 09-17-2021 11:18:17 EST by Rufus Pizano
[2021-09-17 12:15] LABS: HEMATOCRIT 31.3 % (36.0-47.0); HEMOGLOBIN 9.2 g/dl (12.0-15.5)
--- NOTE | 2021-09-17 13:01 | IPNPDOC ---
Subjective Date Seen The patient was seen on 09/17/21. Subjective Chief Complaint/HPI Patient complains of generalized abdominal pain more in the both the lower quadrants. Denies any diarrhea. Complains of green-colored urine. No fever or chills. Does not feel any dizziness or lightheadedness. Does not have much appetite and still feels bloated Objective Physical Examination General Exam: Positive: Alert, Cooperative, No Acute Distress Eye Exam: Positive: PERRLA, Conjunctiva & lids normal, EOMI; Negative: Sclera icteric ENT Exam: Positive: Atraumatic, Mucous membr. moist/pink, Pharynx Normal Neck Exam: Positive: Supple; Negative: JVD, thyromegaly Chest Exam: Positive: Clear to auscultation, Normal air movement Abdomen Exam: Positive: BS Hyperactive, Soft, Tenderness (In both the lower quadrants and in the left periumbilical region) Extremity Exam: Negative: Clubbing, Cyanosis, Edema Skin Exam: Positive: Nl turgor and temperature; Negative: Rash, Breakdown Psych Exam: Positive: Memory Intact, Oriented x 3 Assessment /Plan Assessment This is a 66 y/o female resident of [facility] assisted with a pmh of JOSE MANUEL w residual right sided weakness, hld, a-fib on coumadin, htn, copd, gerd, ckd3, dm2, lupus, depression/anxiety, tubulovillous adenomas of the ascending colon with 5 colonoscopies in the past 2 years who presents to our ED for evaluation of extreme fatigue for the past two days. Patient states that symptoms began suddenly and she simply feels very fatigued and has not had the energy to get out of bed for the past 2-3 days. Patient also admits to some abdominal bloating, dysuria and some recent runny green stools. Patient was found to have a hemoglobin of 6.2. Patient was admitted for symptomatic anemia Symptomatic anemia Suspected to be due to slow GI bleed causing posthemorrhagic anemia GIB possibly secondary to anticoagulant coumadin. Last colonoscopy in July 2021 where she was found to have 1 tubular adenoma in the ascending colon, diverticulosis of the sigmoid colon and rectosigmoid. She does have history of multiple tubulovillous adenomas in the ascending colon and had received 5 colonoscopies with polypectomies in the last 2 years. Received 2 unit of PRBC with appropriate response Will keep the patient on liquid diet Monitor H&H every 6 hours Coumadin held due to suspected GIB Severe iron deficiency Likely from GI losses We will give IV Venofer A-fib pt rate controlled in the ed holding patients coumadin DM2 hypoglycemic protocol, sliding scale insulin continue at home basal insulin continue gabapentin HLD continue atorvastatin HTN Will hold telmisartan at present blood pressure is controlled GERD We will give PPI in place of famotidine Lupus continue plaquenil Hx of cva continue asa Anxiety/depression continue atarax, trazodone, zoloft, ambien Plan/VTE VTE Prophylaxis Ordered?: Yes VS, I&O, 24H, Fishbone Vital Signs/I&O Vital Signs Date Time Temp Pulse Resp B/P (MAP) Pulse Ox O2 Delivery O2 Flow Rate FiO2 09/17/21 06:00 98.2 71 16 139/72 (94) 98 Room Air I&O- Last 24 Hours up to 6 AM 09/17/21 06:00 Intake Total 800 ml Balance 800 ml Laboratory Data 24H LABS Laboratory Tests 2 09/16/21 18:08: Nucleated Red Blood Cells % (auto) 0.6H, Prothrombin Time 30.0H, Prothromb Time International Ratio 2.82, Anion Gap 4L, Glomerular Filtration Rate 46.2, Calcium Level 8.7L, Total Bilirubin 0.2, Aspartate Amino Transf (AST/SGOT) 23, Alanine Aminotransferase (ALT/SGPT) 24, Alkaline Phosphatase 93, Total Protein 6.8, Albumin 3.5, Albumin/Globulin Ratio 1.1L, Coronavirus (COVID-19)(PCR) NEGATIVE, Influenza Type A (RT-PCR) NEGATIVE, Influenza Type B (RT-PCR) NEGATIVE, Respiratory Syncytial Virus (PCR) NEGATIVE 09/17/21 05:54: Nucleated Red Blood Cells % (auto) 0.4H, Prothrombin Time 28.2H, Prothromb Time International Ratio 2.60, Anion Gap 3L, Glomerular Filtration Rate 52.5, Calcium Level 8.6L, Magnesium Level 2.3, Iron Level 24L, Total Iron Binding Capacity 388, Transferrin % Saturation 6.2L, Ferritin 4L, Vitamin B12 Level 690, Folate 8.8 09/17/21 08:46: Methicillin-Resist S.aureus DNA PCR NOT DETECTED 09/17/21 11:23: Urine Color YELLOW, Urine Appearance CLEAR, Urine pH 6.0, Urine Specific [place] 1.030, Urine Protein NEGATIVE, Urine Glucose (UA) 3+H, Urine Ketones NEGATIVE, Urine Blood 1+H, Urine Nitrite NEGATIVE, Urine Bilirubin NEGATIVE, Urine Urobilinogen 0.2, Urine Leukocyte Esterase TRACEH, Urine WBC (Auto) 9H, Urine RBC (Auto) 3, Urine Hyaline Casts (Auto) 0, Urine Bacteria (Auto) 1+H, Urine Squamous Epithelial Cells 1, Urine Mucus (Auto) LARGE, Urine Sperm (Auto) 09/17/21 11:48: Bedside Glucose (Misc Panel) 82 CBC/BMP Laboratory Tests 09/16/21 18:08 09/17/21 05:54 09/17/21 11:57 Microbiology Microbiology 09/17/21 Urine Culture, Received Pending Ameena Bartholomew MD Sep 17, 2021 13:01
[2021-09-17] MEDS: ACETAMINOPHEN TAB 650MG DOSE (2X325MG) PO PRN (17:12)
[2021-09-17 18:19] LABS: HEMATOCRIT 34.2 % (36.0-47.0); HEMOGLOBIN 10.1 g/dl (12.0-15.5)
[2021-09-18 00:43] LABS: HEMATOCRIT 32.1 % (36.0-47.0); HEMOGLOBIN 9.3 g/dl (12.0-15.5)
[2021-09-18 06:00] VITALS: BP 127/69
[2021-09-18] MEDS: HumaLOG INSULIN (NovoLOG) PER UNIT SC SCH ×4 (07:30→21:00)
[2021-09-18] MEDS: ASPIRIN 81MG ENTERIC TABLET PO SCH (08:33)
[2021-09-18] MEDS: SUCRALFATE SUSP 1GM/10ML UD PO SCH ×4 (08:33→21:25)
[2021-09-18] MEDS: GABAPENTIN 100 MG CAP PO SCH ×3 (08:34→21:25)
[2021-09-18] MEDS: FLUTICASONE PROP 0.05% NASAL SPRAY 16 GM (FLONASE) NARES SCH (08:34)
[2021-09-18] MEDS: HYDROXYCHLOROQUINE 200 MG TAB PO SCH (08:34)
[2021-09-18] MEDS: PANTOPRAZOLE 40MG VIAL (C9113 PER 1) IV SCH ×2 (08:34→21:25)
[2021-09-18] MEDS: FERROUS SULFATE 325MG TAB PO SCH ×2 (08:44→21:25)
[2021-09-18 08:55] VITALS: BP 127/59
[2021-09-18] MEDS ORDERED: MIRALAX *UNIT DOSE* 17GM PACKET PO SCH (09:00)
[2021-09-18 09:11] LABS: HEMATOCRIT 32.3 % (36.0-47.0); HEMOGLOBIN 9.5 g/dl (12.0-15.5); MEAN CORPUSCULAR HEMOGLOBIN 20.5 pg (27.0-33.0); MEAN CORPUSCULAR HGB CONC 29.4 g/dl (32.0-36.5); MEAN CORPUSCULAR VOLUME 69.6 fl (80.0-96.0); PLATELET COUNT, AUTOMATED 335 10^3/uL (150-450); RED BLOOD COUNT 4.64 10^6/uL (4.00-5.40); WHITE BLOOD COUNT 9.2 10^3/uL (4.0-10.0)
[2021-09-18 09:21] LABS: INR 2.07; PROTHROMBIN TIME 23.7 SECONDS (12.7-14.5)
[2021-09-18 09:38] LABS: CALCIUM LEVEL 9.2 MG/DL (8.8-10.2); CREATININE FOR GFR 1.13 MG/DL (0.55-1.30); GLOMERULAR FILTRATION RATE 51.4 (>45); MAGNESIUM LEVEL 2.3 MG/DL (1.8-2.4); POTASSIUM SERUM 4.2 MEQ/L (3.5-5.1)
[2021-09-18] MEDS ORDERED: BISACODYL 10 MG SUPP PR ONE (10:15)
--- NOTE | 2021-09-18 10:43 | IPNPDOC ---
Subjective Date Seen The patient was seen on 09/18/21. Subjective Chief Complaint/HPI Patient complains of abdominal pain mainly on the right lower quadrant and right lumbar region. Reports its crampy and and moves all around the abdomen from the right to the left side. She also complains of constipation and having hard stools. Poor appetite. Objective Physical Examination General Exam: Positive: Alert, Cooperative, No Acute Distress Eye Exam: Positive: PERRLA, Conjunctiva & lids normal, EOMI; Negative: Sclera icteric ENT Exam: Positive: Atraumatic, Mucous membr. moist/pink, Pharynx Normal Neck Exam: Positive: Supple; Negative: JVD, thyromegaly Chest Exam: Positive: Clear to auscultation, Normal air movement Abdomen Exam: Positive: BS Hyperactive, Soft, Tenderness (In both the lower quadrants and in the right lower quadrant worst) Extremity Exam: Negative: Clubbing, Cyanosis, Edema Skin Exam: Positive: Nl turgor and temperature; Negative: Rash, Breakdown Psych Exam: Positive: Memory Intact, Oriented x 3 Assessment /Plan Assessment This is a 66 y/o female resident of [facility] assisted with a pmh of CVA w residual right sided weakness, hld, a-fib on coumadin, htn, copd, gerd, ckd3, dm2, lupus, depression/anxiety, tubulovillous adenomas of the ascending colon with 5 colonoscopies in the past 2 years who presents to our ED for evaluation of extreme fatigue for the past two days. Patient states that symptoms began suddenly and she simply feels very fatigued and has not had the energy to get out of bed for the past 2-3 days. Patient also admits to some abdominal bloating, dysuria and some recent runny green stools. Patient was found to have a hemoglobin of 6.2. Patient was admitted for symptomatic anemia Symptomatic anemia Suspected to be due to slow GI bleed causing posthemorrhagic anemia GIB secondary to anticoagulant coumadin. Last colonoscopy in July 2021 where she was found to have 1 tubular adenoma in the ascending colon, diverticulosis of the sigmoid colon and rectosigmoid. She does have history of multiple tubulovillous adenomas in the ascending colon and had received 5 colonoscopies with polypectomies in the last 2 years. Received 2 unit of PRBC with appropriate response Will keep the patient on liquid diet Monitor H&H every 6 hours Coumadin held due to suspected GIB Follow-up with Dr. Sellers as an outpatient. Severe iron deficiency Likely from GI losses We will give IV Venofer Chronic abdominal pain Going on for several months CT abdomen and pelvis on admission only showed some thickening of the wall of the duodenum there were no other acute findings. Showed some constipation and diverticulosis. Patient has had multiple colonoscopies in the past 2 years. May need an EGD. Follows with GI Will need an early appointment within the next 1 month A-fib pt rate controlled in the ed holding patients coumadin DM2 hypoglycemic protocol, sliding scale insulin continue at home basal insulin continue gabapentin HLD continue atorvastatin HTN Will hold telmisartan at present blood pressure is controlled GERD We will give PPI in place of famotidine Lupus continue plaquenil Hx of cva continue asa Anxiety/depression continue atarax, trazodone, zoloft, ambien Plan/VTE VTE Prophylaxis Ordered?: Yes VS, I&O, 24H, Fishbone Vital Signs/I&O Vital Signs Date Time Temp Pulse Resp B/P (MAP) Pulse Ox O2 Delivery O2 Flow Rate FiO2 09/18/21 08:55 98.5 82 16 127/59 (81) 94 Room Air I&O- Last 24 Hours up to 6 AM 09/18/21 06:00 Intake Total 1585 ml Output Total 1050 ml Balance 535 ml Laboratory Data 24H LABS Laboratory Tests 2 09/17/21 11:23: Urine Color YELLOW, Urine Appearance CLEAR, Urine pH 6.0, Urine Specific [place] 1.030, Urine Protein NEGATIVE, Urine Glucose (UA) 3+H, Urine Ketones NEGATIVE, Urine Blood 1+H, Urine Nitrite NEGATIVE, Urine Bilirubin NEGATIVE, Urine Urobilinogen 0.2, Urine Leukocyte Esterase TRACEH, Urine WBC (Auto) 9H, Urine RBC (Auto) 3, Urine Hyaline Casts (Auto) 0, Urine Bacteria (Auto) 1+H, Urine Squamous Epithelial Cells 1, Urine Mucus (Auto) LARGE, Urine Sperm (Auto) 09/17/21 11:48: Bedside Glucose (Misc Panel) 82 09/17/21 15:25: Lab Scanned Report Transfusion Record 09/17/21 16:37: Bedside Glucose (Misc Panel) 86 09/17/21 21:15: Bedside Glucose (Misc Panel) 134H 09/18/21 08:46: Nucleated Red Blood Cells % (auto) 1.0H, Prothrombin Time 23.7H, Prothromb Time International Ratio 2.07, Anion Gap 5L, Glomerular Filtration Rate 51.4, Calcium Level 9.2, Magnesium Level 2.3 CBC/BMP Laboratory Tests 09/17/21 11:57 09/17/21 17:56 09/17/21 23:50 09/18/21 08:46 Microbiology Microbiology 09/17/21 Urine Culture - Final, Complete RayAmeena MD Sep 18, 2021 10:43
[2021-09-18 11:54] LABS: HEMATOCRIT 34.4 % (36.0-47.0)
[2021-09-18 15:19] VITALS: BP 128/70
[2021-09-18 18:08] LABS: HEMATOCRIT 32.6 % (36.0-47.0); HEMOGLOBIN 9.4 g/dl (12.0-15.5)
[2021-09-18] MEDS: LEVEMIR (INSULIN DETEMIR) 1 UNITS/0.01ML SC SCH (21:00)
[2021-09-18] MEDS: ATORVASTATIN 20 MG TAB PO SCH (21:25)
[2021-09-18] MEDS: SERTRALINE 100 MG TAB PO SCH (21:25)
[2021-09-18] MEDS: traZODone 50 MG TAB PO SCH (21:25)
[2021-09-18] MEDS: zolPIDEM TARTRATE 5 MG TAB PO SCH (21:25)
[2021-09-18 22:00] VITALS: BP 148/68
[2021-09-19] MEDS: SUCRALFATE SUSP 1GM/10ML UD PO SCH ×4 (07:30→21:00)
[2021-09-19] MEDS: HumaLOG INSULIN (NovoLOG) PER UNIT SC SCH ×4 (07:30→21:00)
[2021-09-19 08:07] VITALS: BP 115/59
[2021-09-19 08:27] LABS: HEMATOCRIT 30.6 % (36.0-47.0); HEMOGLOBIN 8.7 g/dl (12.0-15.5); MEAN CORPUSCULAR HGB CONC 28.4 g/dl (32.0-36.5); MEAN CORPUSCULAR VOLUME 70.3 fl (80.0-96.0); PLATELET COUNT, AUTOMATED 336 10^3/uL (150-450); RED BLOOD COUNT 4.35 10^6/uL (4.00-5.40); WHITE BLOOD COUNT 8.6 10^3/uL (4.0-10.0)
[2021-09-19 08:41] LABS: INR 1.53; PROTHROMBIN TIME 18.9 SECONDS (12.7-14.5)
[2021-09-19] MEDS: PANTOPRAZOLE 40MG VIAL (C9113 PER 1) IV SCH ×2 (08:46→21:07)
[2021-09-19 08:56] LABS: CALCIUM LEVEL 8.9 MG/DL (8.8-10.2); CREATININE FOR GFR 1.13 MG/DL (0.55-1.30); GLOMERULAR FILTRATION RATE 51.4 (>45); MAGNESIUM LEVEL 2.1 MG/DL (1.8-2.4); POTASSIUM SERUM 4.1 MEQ/L (3.5-5.1)
[2021-09-19] MEDS: FERROUS SULFATE 325MG TAB PO SCH ×2 (09:08→21:06)
[2021-09-19] MEDS: ASPIRIN 81MG ENTERIC TABLET PO SCH (09:08)
[2021-09-19] MEDS: FLUTICASONE PROP 0.05% NASAL SPRAY 16 GM (FLONASE) NARES SCH (09:08)
[2021-09-19] MEDS: GABAPENTIN 100 MG CAP PO SCH ×3 (09:08→21:06)
[2021-09-19] MEDS: SENOKOT S TAB PO SCH ×2 (09:08→21:06)
[2021-09-19] MEDS: HYDROXYCHLOROQUINE 200 MG TAB PO SCH (09:08)
--- NOTE | 2021-09-19 09:40 | IPNPDOC ---
Subjective Date Seen The patient was seen on 09/19/21. Subjective Chief Complaint/HPI Complains of abdominal pain on the right iliac fossa and right lumbar region. Reports she always has pains and soreness on the right side of the abdomen. Also complains of nausea after she took MiraLAX. She did have 1 bowel movement yesterday which was hard. Objective Physical Examination General Exam: Positive: Alert, Cooperative, No Acute Distress Eye Exam: Positive: PERRLA, Conjunctiva & lids normal, EOMI; Negative: Sclera icteric ENT Exam: Positive: Atraumatic, Mucous membr. moist/pink, Pharynx Normal Neck Exam: Positive: Supple; Negative: JVD, thyromegaly Chest Exam: Positive: Clear to auscultation, Normal air movement Abdomen Exam: Positive: BS Hyperactive, Soft, Tenderness (In both the lower quadrants and in the right lower quadrant worst) Extremity Exam: Negative: Clubbing, Cyanosis, Edema Skin Exam: Positive: Nl turgor and temperature; Negative: Rash, Breakdown Psych Exam: Positive: Memory Intact, Oriented x 3 Assessment /Plan Assessment This is a 66 y/o female resident of [facility] assisted with a pmh of JOSE MANUEL w residual right sided weakness, hld, a-fib on coumadin, htn, copd, gerd, ckd3, dm2, lupus, depression/anxiety, tubulovillous adenomas of the ascending colon with 5 colonoscopies in the past 2 years who presents to our ED for evaluation of extreme fatigue for the past two days. Patient states that symptoms began suddenly and she simply feels very fatigued and has not had the energy to get out of bed for the past 2-3 days. Patient also admits to some abdominal bloating, dysuria and some recent runny green stools. Patient was found to have a hemoglobin of 6.2. Patient was admitted for symptomatic anemia Symptomatic anemia Suspected to be due to slow GI bleed causing posthemorrhagic anemia GIB secondary to anticoagulant coumadin. Last colonoscopy in July 2021 where she was found to have 1 tubular adenoma in the ascending colon, diverticulosis of the sigmoid colon and rectosigmoid. She does have history of multiple tubulovillous adenomas in the ascending colon and had received 5 colonoscopies with polypectomies in the last 2 years. Received 2 unit of PRBC with appropriate response Coumadin held due to suspected GIB Follow-up with Dr. Sellers as an outpatient. Severe iron deficiency from GI losses Got IV Venofer Continue with ferrous sulfate Chronic abdominal pain Going on for several months off and on the right iliac fossa and right lumbar region. Says is worse in the past [address] abdomen and pelvis on admission only showed some thickening of the wall of the duodenum there were no other acute findings. Showed some constipation and diverticulosis. She complains of constipation Patient has had multiple colonoscopies in the past 2 years. May need an EGD. Follows with GI Will need an early appointment within the next 1 month Continue with bowel regimen with senna, docusate, Dulcolax suppository. He does not like the MiraLAX as she reported that it gives her cramps. A-fib pt rate controlled in the ed holding patients coumadin DM2 hypoglycemic protocol, sliding scale insulin continue at home basal insulin continue gabapentin HLD continue atorvastatin HTN Will hold telmisartan at present blood pressure is controlled GERD We will give PPI in place of famotidine Lupus continue plaquenil Hx of cva continue asa Anxiety/depression continue atarax, trazodone, zoloft, ambien Disposition continued rehab Plan/VTE VTE Prophylaxis Ordered?: Yes VS, I&O, 24H, Fishbone Vital Signs/I&O Vital Signs Date Time Temp Pulse Resp B/P (MAP) Pulse Ox O2 Delivery O2 Flow Rate FiO2 09/19/21 08:07 98.2 90 16 115/59 (77) 97 Room Air I&O- Last 24 Hours up to 6 AM 09/19/21 06:00 Intake Total 710 ml Output Total 200 ml Balance 510 ml Laboratory Data 24H LABS Laboratory Tests 2 09/18/21 11:14: Bedside Glucose (Misc Panel) 105 09/18/21 17:34: Bedside Glucose (Misc Panel) 92 09/18/21 19:46: Bedside Glucose (Misc Panel) 131H 09/19/21 07:28: Bedside Glucose (Misc Panel) 107 09/19/21 07:39: Nucleated Red Blood Cells % (auto) 2.7H, Prothrombin Time 18.9H, Prothromb Time International Ratio 1.53, Anion Gap 7L, Glomerular Filtration Rate 51.4, Calcium Level 8.9, Magnesium Level 2.1 CBC/BMP Laboratory Tests 09/18/21 11:30 09/18/21 17:51 09/19/21 07:39 Microbiology Microbiology 09/17/21 Urine Culture - Final, Complete Ameena Bartholomew MD Sep 19, 2021 09:40
[2021-09-19] MEDS: TELMISARTAN 20 MG TAB PO SCH (12:27)
[2021-09-19 14:00] VITALS: BP 116/56
[2021-09-19] MEDS: BISACODYL 10 MG SUPP PR SCH (14:30)
[2021-09-19] MEDS: LEVEMIR (INSULIN DETEMIR) 1 UNITS/0.01ML SC SCH (21:00)
[2021-09-19] MEDS: SERTRALINE 100 MG TAB PO SCH (21:06)
[2021-09-19] MEDS: traZODone 50 MG TAB PO SCH (21:06)
[2021-09-19] MEDS: zolPIDEM TARTRATE 5 MG TAB PO SCH (21:06)
[2021-09-19] MEDS: ATORVASTATIN 20 MG TAB PO SCH (21:06)
[2021-09-19] MEDS: ACETAMINOPHEN TAB 650MG DOSE (2X325MG) PO PRN (21:14)
[2021-09-19 22:00] VITALS: BP 156/78
[2021-09-20 06:00] VITALS: BP 134/70
[2021-09-20] MEDS: SUCRALFATE SUSP 1GM/10ML UD PO SCH ×2 (07:30→12:00)
[2021-09-20] MEDS: HumaLOG INSULIN (NovoLOG) PER UNIT SC SCH ×2 (07:30→12:42)
[2021-09-20 08:16] LABS: HEMATOCRIT 30.1 % (36.0-47.0); HEMOGLOBIN 8.8 g/dl (12.0-15.5); MEAN CORPUSCULAR HEMOGLOBIN 20.5 pg (27.0-33.0); MEAN CORPUSCULAR HGB CONC 29.2 g/dl (32.0-36.5); MEAN CORPUSCULAR VOLUME 70.2 fl (80.0-96.0); PLATELET COUNT, AUTOMATED 353 10^3/uL (150-450); RED BLOOD COUNT 4.29 10^6/uL (4.00-5.40); WHITE BLOOD COUNT 7.6 10^3/uL (4.0-10.0)
[2021-09-20 08:26] LABS: INR 1.14; PROTHROMBIN TIME 15.1 SECONDS (12.7-14.5)
[2021-09-20 08:40] LABS: CALCIUM LEVEL 8.8 MG/DL (8.8-10.2); CREATININE FOR GFR 1.08 MG/DL (0.55-1.30); GLOMERULAR FILTRATION RATE 54.2 (>45); MAGNESIUM LEVEL 2.1 MG/DL (1.8-2.4); POTASSIUM SERUM 3.9 MEQ/L (3.5-5.1)
[2021-09-20] MEDS: BISACODYL 10 MG SUPP PR SCH (09:00)
[2021-09-20] MEDS ORDERED: SUCR1ORA PO (09:19)
[2021-09-20] MEDS ORDERED: OMEP40CA4 PO (09:19)
[2021-09-20] MEDS ORDERED: BISA10SU PR (09:19)
[2021-09-20] MEDS ORDERED: FERR1TAB8 PO (09:19)
[2021-09-20] MEDS ORDERED: SENN-52 PO (09:19)
--- NOTE | 2021-09-20 09:31 | DS.PDOC ---
Discharge Summary General Date of Admission Sep 16, 2021 at 19:10 Date of Discharge 09/20/21 Discharge Summary PROCEDURES PERFORMED DURING STAY: [None]. 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 HOSPITAL COURSE: This is a 66 y/o female resident of [facility] assisted living with a pmh of CVA w residual right sided weakness, hld, a-fib on coumadin, htn, copd, gerd, ckd3, dm2, lupus, depression/anxiety, tubulovillous adenomas of the as cending colon with 5 colonoscopies in the past 2 years who presents to our ED for evaluation of extreme fatigue for the past two days. Patient states that symptoms began suddenly and she simply feels very fatigued and has not had the energy to get out of bed for the past 2-3 days. Patient also admits to some abdominal bloating, dysuria and some recent runny green stools. Patient was found to have a hemoglobin of 6.2. Patient was admitted for symptomatic anemia Symptomatic anemia Suspected to be due to slow GI bleed causing posthemorrhagic anemia GIB secondary to anticoagulant coumadin. Last colonoscopy in July 2021 where she was found to have 1 tubular adenoma in the ascending colon, diverticulosis of the sigmoid colon and rectosigmoid. She does have history of multiple tubulovillous adenomas in the ascending colon and had received 5 colonoscopies with polypectomies in the last 2 years. Received 2 unit of PRBC with appropriate response Follow-up with Dr. Sellers as an outpatient. Continue PPI twice daily, sucralfate. Coumadin stopped Severe iron deficiency from GI losses Got IV Venofer 500mg Continue with ferrous sulfate Chronic abdominal pain Going on for several months off and on the right iliac fossa and right lumbar region. Says is worse in the past [address] abdomen and pelvis on admission only showed some thickening of the wall of the duodenum there were no other acute findings. Showed some constipation and diverticulosis. She complains of constipation Patient has had multiple colonoscopies in the past 2 years. May need an EGD as well as colonoscopy again. Follows with GI Continue with bowel regimen with senna, docusate, Dulcolax suppository. She does not like the MiraLAX as she reported that it gives her abdomen cramps and makes her nauseous. A-fib pt rate controlled in the ed holding patients coumadin DM2 hypoglycemic protocol, sliding scale insulin continue at home basal insulin continue gabapentin HLD continue atorvastatin HTN Continue telmisartan GERD Continue PPI twice daily, sucralfate Lupus continue plaquenil Hx of cva continue asa Anxiety/depression continue atarax, trazodone, zoloft, ambien DISCHARGE MEDICATIONS: Please see below. ALLERGIES: Please see below. PHYSICAL EXAMINATION ON DISCHARGE: VITAL SIGNS: Please see below. General Exam: Positive: Alert, Cooperative, No Acute Distress Eye Exam: Positive: PERRLA, Conjunctiva & lids normal, EOMI; Negative: Sclera icteric ENT Exam: Positive: Atraumatic, Mucous membr. moist/pink, Pharynx Normal Neck Exam: Positive: Supple; Negative: JVD, thyromegaly Chest Exam: Positive: Clear to auscultation, Normal air movement Abdomen Exam: Positive: BS Hyperactive, Soft, Tenderness (In both the lower quadrants and in the right lower quadrant worst) Extremity Exam: Negative: Clubbing, Cyanosis, Edema Skin Exam: Positive: Nl turgor and temperature; Negative: Rash, Breakdown Psych Exam: Positive: Memory Intact, Oriented x 3 LABORATORY DATA: Please see below. IMAGING: CT abdomen and pelvis with IV contrast only: FINDINGS: LUNG BASES: No infiltrate or effusion. - VASCULAR: Visualized cardiac size is at the upper end of normal. Trace pericardial effusion is seen. No abdominoaortic aneurysm, dissection or retroperitoneal hematoma. There is atherosclerosis. - PERITONEAL : No free air or free fluid. - GI: No hiatal hernia. The stomach contains some contrast and gas. The stomach is not sufficiently distended to evaluate wall thickening. The proximal duodenum appears slightly thick-walled. This could be artifactual secondary to insufficient distention. If there are related symptoms, consider dedicated evaluation. No appearance of a small-bowel obstruction. No focal mesenteric inflammation. No mesenteric lymphadenopathy by size criteria. - Scattered fecal material and gas slightly distending portions of the colon and rectum could be correlated for mild constipation. Perianal inflammation cannot be excluded. There is diverticulosis but no evidence of acute diverticulitis.. The appendix does not appear inflamed. - HEPATOBILIARY, PANCREAS, SPLEEN: Hepatic length is 16 cm. Evaluation of hepatic parenchyma is slightly compromised by beam hardening artifacts. No calcified gallstones or significant biliary dilation. No pancreatic inflammation. Spleen not enlarged. - ADRENALS, KIDNEYS, BLADDER, RETROPERITONEAL: Adrenals within normal limits. No hydronephrosis. Symmetric renal enhancement. Areas of cortical thinning involving the left kidney may be related to scarring or developmental. No perivesical stranding. No bladder wall thickening. - PELVIC: No dominant cystic pelvic mass seen. Gas within the vagina may be iatrogenic. - MUSCULOSKELETAL: Tiny fat containing umbilical hernia. Subcutaneous stranding along the lateral aspects of the lower abdominal body wall bilaterally are of uncertain significance. This could be due to edema, cellulitis or soft tissue contusions. Degenerative changes of the spine are noted. Severe osteoarthritic changes of the hips. No acute fracture or suspicious bone lesion. - IMPRESSION: No free-air, free-fluid or focal mesenteric inflammation. Nonspecific gastrointestinal findings to be correlated clinically are discussed above. ACTIVITY: [As tolerated]. DIET: Carb consistent mechanical soft DISCHARGE PLAN: [facility] subacute rehab DISCHARGE INSTRUCTIONS: Follow-up in with GI in 1 to 2 weeks Will need outpatient endoscopy and colonoscopy for evaluation of GI bleed and iron deficiency DISCHARGE CONDITION: [Stable]. TIME SPENT ON DISCHARGE: 40 minutes. Vital Signs/I&Os Vital Signs Date Time Temp Pulse Resp B/P (MAP) Pulse Ox O2 Delivery O2 Flow Rate FiO2 09/20/21 06:00 97.7 68 17 134/70 (91) 97 Room Air I&O- Last 24 Hours up to 6 AM 09/20/21 06:00 Intake Total 1480 ml Balance 1480 ml Laboratory Data Labs 24H Laboratory Tests 2 09/19/21 11:14: Bedside Glucose (Misc Panel) 125H 09/19/21 16:57: Bedside Glucose (Misc Panel) 106 09/19/21 19:40: Bedside Glucose (Misc Panel) 112 09/20/21 07:38: Nucleated Red Blood Cells % (auto) 2.1H, Prothrombin Time 15.1H, Prothromb Time International Ratio 1.14, Anion Gap 6L, Glomerular Filtration Rate 54.2, Calcium Level 8.8, Magnesium Level 2.1 CBC/BMP Laboratory Tests 09/20/21 07:38 FSBS Laboratory Tests Test 09/19/21 11:14 09/19/21 16:57 09/19/21 19:40 Range/Units Bedside Glucose (Misc Panel) 125 106 112 80-115 MG/DL Microbiology Microbiology 09/19/21 Stool Occult Blood (ADIS) - Final, Complete 09/17/21 Urine Culture - Final, Complete Discharge Medications Scheduled Acetaminophen (Acetaminophen 8 Hour) 650 Mg Tablet.er, 650 MG PO TID, (Reported) Aspirin (Ecotrin) 81 Mg Tablet.dr, 81 MG PO DAILY, (Reported) Atorvastatin Calcium (Atorvastatin Calcium) 80 Mg Tablet, 80 MG PO QHS, (Reported) Empagliflozin (Jardiance) 25 Mg Tablet, 25 MG PO DAILY, (Reported) Famotidine (Famotidine) 20 Mg Tablet, 20 MG PO QHS, (Reported) Ferrous Sulfate (Ferrous Sulfate) 325 Mg Tablet, 325 MG PO DAILY Fluticasone Propionate (Flonase Allergy Relief) 9.9 Ml [place].susp, 1 SPRAY NARES DAILY, (Reported) Gabapentin (Gabapentin) 100 Mg Capsule, 100 MG PO TID, (Reported) Hydroxychloroquine Sulfate (Hydroxychloroquine Sulfate) 200 Mg Tab, 200 MG PO DAILY, (Reported) Insulin Glargine,Hum.rec.anlog (Lantus Solostar) 100 Unit/1 Ml Insuln.pen, 30 SC QHS, (Reported) Omeprazole (Omeprazole) 40 Mg Capsule.dr, 40 MG PO BID TAKES 30 MINUTES PRIOR TO LUNCH Sennosides/Docusate Sodium (Senna Plus Tablet) 1 Each Tablet, 1 TAB PO BID Sertraline Hcl (Zoloft) 100 Mg Tablet, 100 MG PO QHS, (Reported) Sitagliptin (Januvia) 50 Mg Tablet, 50 MG PO QHS, (Reported) Sucralfate (Sucralfate) 1 Gm/10 Ml Oral.susp, 1 GM PO ACHS Telmisartan (Telmisartan) 40 Mg Tablet, 40 MG PO DAILY, (Reported) Trazodone HCl (Trazodone HCl) 50 Mg Tablet, 50 MG PO QHS, (Reported) Triamcinolone Acet (Triamcinolone Acetonide 0.1% Crm) 80 Gm Cream..g., 1 DOSE TOP BID, (Reported) APPLY TO BACK Zolpidem Tartrate (Ambien) 5 Mg Tablet, 5 MG PO QHS, (Reported) Scheduled PRN Bisacodyl (Bisacodyl) 10 Mg Supp.rect, 10 MG [place] DAILY PRN for CONSTIPATION Hydroxyzine HCl (Hydroxyzine HCl) 10 Mg Tablet, 20 MG PO Q6HP PRN for ITCHING, (Reported) Lanolin Alcohol/Mo/W.pet/[place] (Eucerin Creme) 454 Gm Cream..g., 1 APPLIC TP BID PRN for ITCHING, (Reported) Magnesium Hydroxide (Milk of Magnesia) 400 Mg/5 Ml Oral.susp, 30 ML PO DAILY PRN for CONSTIPATION, (Reported) Methyl Salicylate/Menthol (Muscle Rub Cream) 85 Gm Cream..g., 1 APPLIC EX ASDIRECTED PRN for PAIN, (Reported) Polyethylene Glycol 3350 (Miralax) 1 Pow Pow, 17 GM PO DAILY PRN for CONSTIPATION, (Reported) Allergies Coded Allergies: lisinopril (Verified Allergy, Unknown, 09/16/21) latex (Verified Adverse Reaction, Unknown, does not like smell, 09/16/21) Ameena Bartholomew MD Sep 20, 2021 09:31
[2021-09-20] MEDS: GABAPENTIN 100 MG CAP PO SCH (09:36)
[2021-09-20] MEDS: ASPIRIN 81MG ENTERIC TABLET PO SCH (09:37)
[2021-09-20] MEDS: FLUTICASONE PROP 0.05% NASAL SPRAY 16 GM (FLONASE) NARES SCH (09:37)
[2021-09-20] MEDS: PANTOPRAZOLE 40MG VIAL (C9113 PER 1) IV SCH (09:37)
[2021-09-20] MEDS: FERROUS SULFATE 325MG TAB PO SCH (09:37)
[2021-09-20] MEDS: HYDROXYCHLOROQUINE 200 MG TAB PO SCH (09:37)
[2021-09-20] MEDS: TELMISARTAN 20 MG TAB PO SCH (09:37)
[2021-09-20] MEDS: SENOKOT S TAB PO SCH (09:37)
[2021-09-20] MEDS ORDERED: PREVNAR 13 VACCINE SYRINGE IM ONE (16:00)
== END 2021-09-20 13:00 | DRG 813 ==
LOC: EDBD 17:36 → EDSEX 17:36 → M ED 17:36 → M ED INP 19:10 → ENRESERV 21:47 → M MSPAV 23:05
PROVIDERS: ADMIT Family Medicine; ATTEND Internal Medicine Nephrology
PROC: 30233N1 Transfusion of Nonautologous Red Blood Cells into Peripheral Vein, Percutaneous Approach (ICD-10-PCS; principal; 2021-09-16)
DX: D68.32 Hemorrhagic disorder due to extrinsic circulating anticoagulants (principal); K92.2 Gastrointestinal hemorrhage, unspecified; I69.351 Hemiplegia and hemiparesis following cerebral infarction affecting right dominant side; I48.20 Chronic atrial fibrillation, unspecified; D50.0 Iron deficiency anemia secondary to blood loss (chronic); I12.9 Hypertensive chronic kidney disease with stage 1 through stage 4 chronic kidney disease, or unspecified chronic kidney disease; J44.9 Chronic obstructive pulmonary disease, unspecified; N18.30 Chronic kidney disease, stage 3 unspecified; M32.9 Systemic lupus erythematosus, unspecified; E11.22 Type 2 diabetes mellitus with diabetic chronic kidney disease; F41.9 Anxiety disorder, unspecified; F32.9 Major depressive disorder, single episode, unspecified; Z79.01 Long term (current) use of anticoagulants; K21.9 Gastro-esophageal reflux disease without esophagitis; Z79.82 Long term (current) use of aspirin; Z79.899 Other long term (current) drug therapy; Z79.4 Long term (current) use of insulin; Z91.040 Latex allergy status; Z88.8 Allergy status to other drugs, medicaments and biological substances

== ENCOUNTER → 2021-09-16 | Outpatient (REF) | payer MEDICARE, MEDICAID ==
[~2021-09-16] MED LIST changes: +BISA10SU PR; +SENN-52 PO; +SUCR1ORA PO
[2021-09-16 14:39] LABS: BASO # 0.1 10^3/uL (0.0-0.2); BASO % 1.1 % (0.0-1.0); EOS # 0.3 10^3/uL (0.0-0.5); EOS % 5.3 % (0.0-3.0); HEMATOCRIT 23.5 % (36.0-47.0); LYMPH # 2.3 10^3/uL (1.5-5.0); MEAN CORPUSCULAR HEMOGLOBIN 17.4 pg (27.0-33.0); MEAN CORPUSCULAR HGB CONC 26.4 g/dl (32.0-36.5); MONO # 0.7 10^3/uL (0.0-0.8); MONO % 11.8 % (2.0-8.0); NEUTROPHILS # 2.2 10^3/uL (1.5-8.5); NEUTROPHILS % 40.4 % (36.0-66.0); PLATELET COUNT, AUTOMATED 309 10^3/uL (150-450); RED BLOOD COUNT 3.56 10^6/uL (4.00-5.40); WHITE BLOOD COUNT 5.5 10^3/uL (4.0-10.0)
[2021-09-16 15:07] LABS: ALBUMIN 3.2 GM/DL (3.2-5.2); BILIRUBIN,TOTAL 0.3 MG/DL (0.2-1.0); CALCIUM LEVEL 8.6 MG/DL (8.8-10.2); CHOLESTEROL RISK RATIO 2.755 (<5); CREATININE FOR GFR 1.07 MG/DL (0.55-1.30); FREE T4 0.86 NG/DL (0.76-1.46); GLOMERULAR FILTRATION RATE 54.8 (>45); POTASSIUM SERUM 4.8 MEQ/L (3.5-5.1); THYROID STIMULATING HORMONE 0.78 uIU/ML (0.358-3.740); TOTAL PROTEIN 6.3 GM/DL (6.4-8.2)
[2021-09-16 16:40] LABS: HEMOGLOBIN 6.2 g/dl (12.0-15.5)
== END ==
PROVIDERS: ATTEND Nurse Practitioner Family
DX: E11.9 Type 2 diabetes mellitus without complications (principal); I10 Essential (primary) hypertension; D50.9 Iron deficiency anemia, unspecified; E78.5 Hyperlipidemia, unspecified

== ENCOUNTER → 2021-09-23 | Outpatient (REF) | payer MEDICARE, MEDICAID ==
[~2021-09-23] MED LIST changes: +BISA10SU PR; +SENN-52 PO; +SUCR1ORA PO
[2021-09-23 10:52] LABS: HEMATOCRIT 33.7 % (36.0-47.0); HEMOGLOBIN 9.6 g/dl (12.0-15.5); MEAN CORPUSCULAR HEMOGLOBIN 20.6 pg (27.0-33.0); MEAN CORPUSCULAR HGB CONC 28.5 g/dl (32.0-36.5); MEAN CORPUSCULAR VOLUME 72.5 fl (80.0-96.0); PLATELET COUNT, AUTOMATED 386 10^3/uL (150-450); RED BLOOD COUNT 4.65 10^6/uL (4.00-5.40); WHITE BLOOD COUNT 8.5 10^3/uL (4.0-10.0)
[2021-09-23 11:12] LABS: CALCIUM LEVEL 9.2 MG/DL (8.8-10.2); CREATININE FOR GFR 1.26 MG/DL (0.55-1.30); GLOMERULAR FILTRATION RATE 45.4 (>45); POTASSIUM SERUM 4.3 MEQ/L (3.5-5.1)
== END ==
PROVIDERS: ATTEND Nurse Practitioner Family
DX: K92.2 Gastrointestinal hemorrhage, unspecified (principal); Z22.322 Carrier or suspected carrier of Methicillin resistant Staphylococcus aureus

== ENCOUNTER → 2021-09-23 | Outpatient (REF) | payer MEDICARE, MEDICAID | PROVIDERS: ATTEND Nurse Practitioner Family | DX: Z22.322 Carrier or suspected carrier of Methicillin resistant Staphylococcus aureus (principal) ==

== ENCOUNTER → 2021-09-30 | Outpatient (REF) | payer MEDICARE, MEDICAID ==
[2021-09-30 11:10] LABS: HEMATOCRIT 34.9 % (36.0-47.0); HEMOGLOBIN 9.9 g/dl (12.0-15.5); MEAN CORPUSCULAR HGB CONC 28.4 g/dl (32.0-36.5); MEAN CORPUSCULAR VOLUME 73.9 fl (80.0-96.0); PLATELET COUNT, AUTOMATED 373 10^3/uL (150-450); RED BLOOD COUNT 4.72 10^6/uL (4.00-5.40); WHITE BLOOD COUNT 6.6 10^3/uL (4.0-10.0)
[2021-09-30 11:39] LABS: CALCIUM LEVEL 9.1 MG/DL (8.8-10.2); CREATININE FOR GFR 1.16 MG/DL (0.55-1.30); GLOMERULAR FILTRATION RATE 49.9 (>45); POTASSIUM SERUM 4.1 MEQ/L (3.5-5.1)
== END ==
PROVIDERS: ATTEND Nurse Practitioner Family
DX: D50.0 Iron deficiency anemia secondary to blood loss (chronic) (principal); K92.2 Gastrointestinal hemorrhage, unspecified

== ENCOUNTER → 2021-10-02 | Outpatient (REF) | payer MEDICARE, MEDICAID ==
[2021-10-02 17:27] LABS: HEMATOCRIT 35.5 % (36.0-47.0); HEMOGLOBIN 10.2 g/dl (12.0-15.5); MEAN CORPUSCULAR HEMOGLOBIN 21.3 pg (27.0-33.0); MEAN CORPUSCULAR HGB CONC 28.7 g/dl (32.0-36.5); PLATELET COUNT, AUTOMATED 409 10^3/uL (150-450); WHITE BLOOD COUNT 8.7 10^3/uL (4.0-10.0)
[2021-10-02 17:32] LABS: CREATININE FOR GFR 1.08 MG/DL (0.55-1.30); GLOMERULAR FILTRATION RATE 54.2 (>45); POTASSIUM SERUM 4.3 MEQ/L (3.5-5.1)
== END ==
PROVIDERS: ATTEND Nurse Practitioner Family
DX: D50.0 Iron deficiency anemia secondary to blood loss (chronic) (principal); K92.2 Gastrointestinal hemorrhage, unspecified

== ENCOUNTER → 2021-10-07 | Outpatient (REF) | payer MEDICARE, MEDICAID ==
[2021-10-07 11:04] LABS: HEMATOCRIT 37.3 % (36.0-47.0); HEMOGLOBIN 10.8 g/dl (12.0-15.5); MEAN CORPUSCULAR HEMOGLOBIN 21.7 pg (27.0-33.0); MEAN CORPUSCULAR VOLUME 74.9 fl (80.0-96.0); PLATELET COUNT, AUTOMATED 360 10^3/uL (150-450); RED BLOOD COUNT 4.98 10^6/uL (4.00-5.40); WHITE BLOOD COUNT 6.9 10^3/uL (4.0-10.0)
[2021-10-07 12:25] LABS: CREATININE FOR GFR 0.99 MG/DL (0.55-1.30); GLOMERULAR FILTRATION RATE 59.9 (>45); POTASSIUM SERUM 4.2 MEQ/L (3.5-5.1)
== END ==
PROVIDERS: ATTEND Internal Medicine
DX: K92.2 Gastrointestinal hemorrhage, unspecified (principal)

== ENCOUNTER → 2021-10-14 | Outpatient (REF) | payer MEDICARE, MEDICAID ==
[~2021-10-14] MED LIST changes: +DICY20TA20 PO; +FERR325T3 PO
[2021-10-14 10:48] LABS: HEMATOCRIT 38.7 % (36.0-47.0); HEMOGLOBIN 11.5 g/dl (12.0-15.5); MEAN CORPUSCULAR HEMOGLOBIN 22.5 pg (27.0-33.0); MEAN CORPUSCULAR HGB CONC 29.7 g/dl (32.0-36.5); MEAN CORPUSCULAR VOLUME 75.9 fl (80.0-96.0); PLATELET COUNT, AUTOMATED 298 10^3/uL (150-450)
[2021-10-14 11:14] LABS: CREATININE FOR GFR 1.06 MG/DL (0.55-1.30); GLOMERULAR FILTRATION RATE 55.4 (>45); POTASSIUM SERUM 4.3 MEQ/L (3.5-5.1)
== END ==
PROVIDERS: ATTEND Nurse Practitioner Family
DX: K92.2 Gastrointestinal hemorrhage, unspecified (principal)

== ENCOUNTER → 2021-10-21 | Outpatient (REF) | payer MEDICARE, MEDICAID ==
[~2021-10-21] MED LIST changes: -DICY20TA20 PO; -FERR325T3 PO
[2021-10-21 11:24] LABS: BASO % 0.5 % (0.0-1.0); EOS # 0.3 10^3/uL (0.0-0.5); EOS % 3.2 % (0.0-3.0); HEMATOCRIT 39.3 % (36.0-47.0); HEMOGLOBIN 11.5 g/dl (12.0-15.5); LYMPH # 2.3 10^3/uL (1.5-5.0); LYMPH % 28.8 % (24.0-44.0); MEAN CORPUSCULAR HEMOGLOBIN 22.5 pg (27.0-33.0); MEAN CORPUSCULAR HGB CONC 29.3 g/dl (32.0-36.5); MEAN CORPUSCULAR VOLUME 77.1 fl (80.0-96.0); MONO # 0.6 10^3/uL (0.0-0.8); MONO % 7.6 % (2.0-8.0); NEUTROPHILS # 4.7 10^3/uL (1.5-8.5); NEUTROPHILS % 59.6 % (36.0-66.0); PLATELET COUNT, AUTOMATED 316 10^3/uL (150-450); WHITE BLOOD COUNT 7.9 10^3/uL (4.0-10.0)
== END ==
PROVIDERS: ATTEND Internal Medicine Gastroenterology
DX: D64.9 Anemia, unspecified (principal); K21.9 Gastro-esophageal reflux disease without esophagitis; I69.351 Hemiplegia and hemiparesis following cerebral infarction affecting right dominant side

== ENCOUNTER → 2021-10-21 | Outpatient (CLI) | payer MEDICARE, MEDICAID | LOC: M WHC 13:12 → EEVIPCON 14:30 | PROVIDERS: ATTEND Nurse Practitioner Family | DX: Z12.31 Encounter for screening mammogram for malignant neoplasm of breast (principal); K21.9 Gastro-esophageal reflux disease without esophagitis; D50.9 Iron deficiency anemia, unspecified; I69.351 Hemiplegia and hemiparesis following cerebral infarction affecting right dominant side | CPT/HCPCS: 77063; 77067; G0463 ==

== ENCOUNTER → 2021-10-23 | Outpatient (REF) | payer MEDICARE, MEDICAID ==
[2021-10-23 11:47] LABS: BASO % 0.6 % (0.0-1.0); EOS # 0.2 10^3/uL (0.0-0.5); EOS % 3.4 % (0.0-3.0); HEMATOCRIT 37.5 % (36.0-47.0); HEMOGLOBIN 10.9 g/dl (12.0-15.5); LYMPH # 2.4 10^3/uL (1.5-5.0); LYMPH % 34.2 % (24.0-44.0); MEAN CORPUSCULAR HEMOGLOBIN 22.5 pg (27.0-33.0); MEAN CORPUSCULAR HGB CONC 29.1 g/dl (32.0-36.5); MEAN CORPUSCULAR VOLUME 77.5 fl (80.0-96.0); MONO # 0.7 10^3/uL (0.0-0.8); NEUTROPHILS # 3.6 10^3/uL (1.5-8.5); NEUTROPHILS % 51.5 % (36.0-66.0); PLATELET COUNT, AUTOMATED 308 10^3/uL (150-450); RED BLOOD COUNT 4.84 10^6/uL (4.00-5.40)
[2021-10-23 12:36] LABS: ANISOCYTOSIS 4+; OVALOCYTES 2+; POIKILOCYTOSIS 3+; TARGET CELLS 2+
[2021-10-23 12:37] LABS: POLYCHROMASIA 1+; SCHISTOCYTES 1+
[2021-10-23 12:38] LABS: PLATELET ESTIMATE NORMAL (NORMAL)
== END ==
PROVIDERS: ATTEND Nurse Practitioner Family
DX: D50.9 Iron deficiency anemia, unspecified (principal)

== ENCOUNTER → 2021-12-04 | Outpatient (REF) | payer MEDICARE, MEDICAID ==
[2021-12-04 13:22] LABS: INR 3.16; PROTHROMBIN TIME 32.7 SECONDS (12.7-14.5)
== END ==
PROVIDERS: ATTEND Nurse Practitioner Family
DX: Z51.81 Encounter for therapeutic drug level monitoring (principal)

== ENCOUNTER → 2021-12-11 | Outpatient (REF) | payer MEDICARE, MEDICAID ==
[2021-12-11 10:21] LABS: INR 2.89; PROTHROMBIN TIME 30.6 SECONDS (12.7-14.5)
== END ==
PROVIDERS: ATTEND Nurse Practitioner Family
DX: Z51.81 Encounter for therapeutic drug level monitoring (principal); Z79.899 Other long term (current) drug therapy

== ENCOUNTER → 2021-12-30 | Outpatient (CLI) | payer MEDICARE, MEDICAID ==
[~2021-12-30] MED LIST changes: +DICY20TA20 PO; +FERR325T3 PO
== END ==
LOC: M LABSMTC 09:33
PROVIDERS: ATTEND Anesthesiology
DX: Z01.812 Encounter for preprocedural laboratory examination (principal); Z20.822 Contact with and (suspected) exposure to COVID-19

== ENCOUNTER 2022-01-03 09:38 | Day surgery (SDC) | payer MEDICARE, MEDICAID ==
[~2022-01-03] VITALS: Ht 167.6 cm; Wt 95.7 kg
[~2022-01-03 09:38] MED LIST changes: +LIDOCAINE 2% 100MG/5ML SDV (FOR ANES.) As Ordered ONE; +NS 1,000 ML IV ONE; +propofoL 200 MG/20 ML VIAL As Ordered ONE
[2022-01-03] MEDS ORDERED: propofoL 200 MG/20 ML VIAL As Ordered ONE ×3 (11:44→12:03)
[2022-01-03 12:30] VITALS: BP 121/60
== END 2022-01-03 14:05 | disposition home or self-care (01) ==
LOC: M OPP 09:38
PROVIDERS: ATTEND Internal Medicine Gastroenterology
DX: D50.9 Iron deficiency anemia, unspecified (principal); K63.5 Polyp of colon; K57.30 Diverticulosis of large intestine without perforation or abscess without bleeding; K64.0 First degree hemorrhoids; Z86.010 Personal history of colon polyps

== ENCOUNTER → 2022-01-08 | Outpatient (REF) | payer MEDICARE, MEDICAID ==
[~2022-01-08] MED LIST changes: -LIDOCAINE 2% 100MG/5ML SDV (FOR ANES.) As Ordered ONE; -NS 1,000 ML IV ONE; -propofoL 200 MG/20 ML VIAL As Ordered ONE
[2022-01-08 10:10] LABS: INR 1.21; PROTHROMBIN TIME 15.7 SECONDS (12.7-14.5)
== END ==
PROVIDERS: ATTEND Nurse Practitioner Family
DX: Z51.81 Encounter for therapeutic drug level monitoring (principal)

== ENCOUNTER → 2022-01-15 | Outpatient (REF) | payer MEDICARE, MEDICAID ==
[2022-01-15 10:01] LABS: INR 2.3; PROTHROMBIN TIME 25.7 SECONDS (12.7-14.5)
== END ==
PROVIDERS: ATTEND Nurse Practitioner Family
DX: Z51.81 Encounter for therapeutic drug level monitoring (principal)

== ENCOUNTER → 2022-02-12 | Outpatient (REF) | payer MEDICARE, MEDICAID ==
[2022-02-12 11:23] LABS: INR 2.52; PROTHROMBIN TIME 27.5 SECONDS (12.7-14.5)
== END ==
PROVIDERS: ATTEND Nurse Practitioner Family
DX: Z79.01 Long term (current) use of anticoagulants (principal)

== ENCOUNTER → 2022-03-05 | Outpatient (CLI) | payer MEDICARE, MEDICAID | LOC: M PLAIMG 12:13 | PROVIDERS: ATTEND Physician Assistant Medical | DX: R51.9 Headache, unspecified (principal) ==

== ENCOUNTER → 2022-03-10 | Outpatient (REF) | payer MEDICARE, MEDICAID ==
[2022-03-10 10:26] LABS: BASO % 0.7 % (0.0-1.0); EOS # 0.2 10^3/uL (0.0-0.5); EOS % 2.6 % (0.0-3.0); HEMATOCRIT 37.5 % (36.0-47.0); HEMOGLOBIN 11.4 g/dl (12.0-15.5); LYMPH # 2.8 10^3/uL (1.5-5.0); LYMPH % 45.4 % (24.0-44.0); MEAN CORPUSCULAR HEMOGLOBIN 24.5 pg (27.0-33.0); MEAN CORPUSCULAR HGB CONC 30.4 g/dl (32.0-36.5); MEAN CORPUSCULAR VOLUME 80.5 fl (80.0-96.0); MONO # 0.6 10^3/uL (0.0-0.8); MONO % 10.3 % (2.0-8.0); NEUTROPHILS # 2.5 10^3/uL (1.5-8.5); NEUTROPHILS % 40.8 % (36.0-66.0); PLATELET COUNT, AUTOMATED 268 10^3/uL (150-450); RED BLOOD COUNT 4.66 10^6/uL (4.00-5.40); WHITE BLOOD COUNT 6.1 10^3/uL (4.0-10.0)
[2022-03-10 10:35] LABS: INR 2.54; PROTHROMBIN TIME 27.7 SECONDS (12.7-14.5)
[2022-03-10 11:00] LABS: ALBUMIN 3.3 GM/DL (3.2-5.2); BILIRUBIN,TOTAL 0.2 MG/DL (0.2-1.0); CALCIUM LEVEL 8.5 MG/DL (8.8-10.2); CHOLESTEROL RISK RATIO 2.875 (<5); CREATININE FOR GFR 1.11 MG/DL (0.55-1.30); FREE T4 0.86 NG/DL (0.76-1.46); GLOMERULAR FILTRATION RATE 52.5 (>45); POTASSIUM SERUM 3.9 MEQ/L (3.5-5.1); THYROID STIMULATING HORMONE 1.08 uIU/ML (0.358-3.740); TOTAL PROTEIN 6.3 GM/DL (6.4-8.2)
[2022-03-10 11:12] LABS: HEMOGLOBIN A1c 5.2 %
== END ==
PROVIDERS: ATTEND Nurse Practitioner Family
DX: E11.9 Type 2 diabetes mellitus without complications (principal); I10 Essential (primary) hypertension; D50.9 Iron deficiency anemia, unspecified; E78.5 Hyperlipidemia, unspecified

== ENCOUNTER → 2022-04-09 | Outpatient (REF) | payer MEDICARE, MEDICAID ==
[2022-04-09 10:42] LABS: INR 2.82
== END ==
PROVIDERS: ATTEND Family Medicine
DX: I48.0 Paroxysmal atrial fibrillation (principal)

== ENCOUNTER → 2022-04-18 | Outpatient (REF) | payer MEDICARE, MEDICAID ==
[~2022-04-18] MED LIST changes: +METO1TAB32 PO
== END ==
PROVIDERS: ATTEND Nurse Practitioner Family
DX: Z01.818 Encounter for other preprocedural examination (principal)

== ENCOUNTER 2022-04-23 10:54 | Day surgery (SDC) | payer MEDICARE, MEDICAID ==
[~2022-04-23] VITALS: Ht 170.2 cm; Wt 98.8 kg
[~2022-04-23 10:54] MED LIST changes: +LIDOCAINE 2% 100MG/5ML SDV (FOR ANES.) As Ordered ONE; +NS 1,000 ML IV ONE; +propofoL 200 MG/20 ML VIAL As Ordered ONE
[2022-04-23 13:35] VITALS: BP 176/81
== END 2022-04-23 13:45 | disposition home or self-care (01) ==
LOC: M OPP 10:54
PROVIDERS: ATTEND Internal Medicine Gastroenterology
DX: Z86.010 Personal history of colon polyps (principal); D12.2 Benign neoplasm of ascending colon; K57.30 Diverticulosis of large intestine without perforation or abscess without bleeding; K64.0 First degree hemorrhoids; Z79.01 Long term (current) use of anticoagulants; Z79.02 Long term (current) use of antithrombotics/antiplatelets; Z79.1 Long term (current) use of non-steroidal anti-inflammatories (NSAID); Z79.4 Long term (current) use of insulin; Z79.82 Long term (current) use of aspirin; Z79.891 Long term (current) use of opiate analgesic; Z79.899 Other long term (current) drug therapy; Z88.8 Allergy status to other drugs, medicaments and biological substances; Z91.040 Latex allergy status; Z87.891 Personal history of nicotine dependence; Z87.19 Personal history of other diseases of the digestive system

== ENCOUNTER → 2022-05-07 | Outpatient (REF) | payer MEDICARE, MEDICAID ==
[~2022-05-07] MED LIST changes: +ACET-907 PO; +ASPI-161 PO; +CARA1TAB6 PO; +EUCECRE8 TOP; -EUCECRE8 TP; +FLON1SPR; -FLON1SPR NARES; -LIDOCAINE 2% 100MG/5ML SDV (FOR ANES.) As Ordered ONE; +MAGN400T2 PO; +MIRA1POW3 PO; -MUSCCRE9 EX; +MUSCCRE9 EXT; -NS 1,000 ML IV ONE; +POTA-151 PO; +SENN-23 PO; +ZOLP10TA2 PO; -propofoL 200 MG/20 ML VIAL As Ordered ONE
[2022-05-07 10:38] LABS: INR 2.16; PROTHROMBIN TIME 24.5 SECONDS (12.7-14.5)
== END ==
PROVIDERS: ATTEND Nurse Practitioner Family
DX: Z51.81 Encounter for therapeutic drug level monitoring (principal)

== ENCOUNTER 2022-05-08 20:21 | Inpatient (IN) | payer MEDICARE, MEDICAID ==
[~2022-05-08] VITALS: Ht 167.6 cm; Wt 99.8 kg
[~2022-05-08 20:21] MED LIST changes: -ACET-907 PO; -ASPI-161 PO; -CARA1TAB6 PO; -MAGN400T2 PO; -MIRA1POW3 PO; -POTA-151 PO; -SENN-23 PO; -ZOLP10TA2 PO
[2022-05-08 22:42] LABS: BASO % 0.3 % (0.0-1.0); EOS # 0.2 10^3/uL (0.0-0.5); EOS % 1.2 % (0.0-3.0); HEMATOCRIT 32.3 % (36.0-47.0); HEMOGLOBIN 9.8 g/dl (12.0-15.5); LYMPH # 4.4 10^3/uL (1.5-5.0); LYMPH % 35.2 % (24.0-44.0); MEAN CORPUSCULAR HEMOGLOBIN 24.3 pg (27.0-33.0); MEAN CORPUSCULAR HGB CONC 30.3 g/dl (32.0-36.5); MONO # 1.1 10^3/uL (0.0-0.8); MONO % 8.8 % (2.0-8.0); NEUTROPHILS # 6.7 10^3/uL (1.5-8.5); NEUTROPHILS % 54.2 % (36.0-66.0); PLATELET COUNT, AUTOMATED 251 10^3/uL (150-450); RED BLOOD COUNT 4.04 10^6/uL (4.00-5.40); WHITE BLOOD COUNT 12.4 10^3/uL (4.0-10.0)
[2022-05-08 23:09] LABS: INR 2.48; PROTHROMBIN TIME 27.2 SECONDS (12.7-14.5)
[2022-05-08 23:16] LABS: ALBUMIN 3.1 GM/DL (3.2-5.2); ALT/SGPT 21 U/L (12-78); AMYLASE 113 U/L (25-115); BILIRUBIN,DIRECT < 0.1 MG/DL (0.0-0.2); BILIRUBIN,TOTAL 0.2 MG/DL (0.2-1.0); LIPASE 138 U/L (73-393)
[2022-05-08 23:21] LABS: RSV AMPLIFICATION NEGATIVE (NEGATIVE)
[2022-05-09] VITALS (10 sets, daily range): BP systolic 114–160; BP diastolic 62–79
[2022-05-09] MEDS ORDERED: PANTOPRAZOLE 40MG VIAL IV ONE (00:10)
[2022-05-09] MEDS ORDERED: SUCRALFATE SUSP 1GM/10ML UD PO ONE (00:10)
[2022-05-09] MEDS ORDERED: CARA1TAB6 PO (00:27)
[2022-05-09] MEDS ORDERED: SENN-23 PO (00:27)
[2022-05-09] MEDS ORDERED: ZOLP10TA2 PO (00:27)
[2022-05-09] MEDS ORDERED: ACET-907 PO ×2 (00:27)
[2022-05-09] MEDS ORDERED: ASPI-161 PO (00:27)
[2022-05-09] MEDS ORDERED: MIRA1POW3 PO (00:27)
[2022-05-09] MEDS ORDERED: HOME MED LIST COMPLETE! XX SCH (00:30)
[2022-05-09] MEDS: NS 1,000 ML IV SCH ×2 (03:50→16:41)
[2022-05-09 05:01] LABS: HEMATOCRIT 30.7 % (36.0-47.0); HEMOGLOBIN 9.4 g/dl (12.0-15.5)
[2022-05-09] MEDS ORDERED: PHYTONADIONE 2.5 MG **1/2 TAB PO ONE ×2 (05:10→11:00)
[2022-05-09] MEDS ORDERED: DEXTROSE 50% 50 ML SYRINGE IV PRN (05:15)
[2022-05-09] MEDS ORDERED: GLUCOSE 4GM CHEW TABLET PO PRN (05:15)
[2022-05-09] MEDS ORDERED: GLUCAGON INJ 1MG VIAL SC PRN (05:15)
[2022-05-09 05:23] LABS: ALBUMIN 2.7 GM/DL (3.2-5.2); BILIRUBIN,TOTAL 0.2 MG/DL (0.2-1.0); CALCIUM LEVEL 7.9 MG/DL (8.8-10.2); CREATININE FOR GFR 1.11 MG/DL (0.55-1.30); GLOMERULAR FILTRATION RATE 52.5 (>45); POTASSIUM SERUM 4.5 MEQ/L (3.5-5.1); TOTAL PROTEIN 5.9 GM/DL (6.4-8.2)
[2022-05-09] MEDS: INSULIN LISPRO (NovoLOG) PER UNIT SC SCH ×3 (06:24→17:01)
[2022-05-09 08:21] LABS: INR 2.38; PROTHROMBIN TIME 26.4 SECONDS (12.7-14.5)
[2022-05-09 08:37] LABS: PERCENT SATURATION 14.1 % (13.2-45.0)
[2022-05-09] MEDS ORDERED: LEVEMIR (INSULIN DETEMIR) 1 UNITS/0.01ML SC SCH (09:00)
[2022-05-09] MEDS: PANTOPRAZOLE 40MG VIAL IV SCH ×2 (09:27→22:38)
[2022-05-09] MEDS ORDERED: PIPERACILLIN/TAZOBACTAM SOD 4.5 GM in D5W MINI-BAG PLUS 50 ML IV ONE (12:30)
[2022-05-09] MEDS ORDERED: MOM 30ML SUSPENSION UDC PO PRN (15:45)
[2022-05-09 15:57] LABS: HEMATOCRIT 25.8 % (36.0-47.0); HEMOGLOBIN 7.9 g/dl (12.0-15.5)
[2022-05-09] MEDS ORDERED: PHYTONADIONE 5 MG TAB PO ONE (16:25)
[2022-05-09] MEDS: METOPROLOL SUCC *XL* 25MG TAB (TopROL *XL*) PO SCH (16:40)
[2022-05-09] MEDS: OMEPRAZOLE 20MG CAP PO SCH (16:40)
[2022-05-09] MEDS: GABAPENTIN 100 MG CAP PO SCH ×2 (16:40→22:40)
[2022-05-09] MEDS: SUCRALFATE 1 GM TAB PO SCH ×2 (16:45→22:40)
[2022-05-09] MEDS ORDERED: ANALGESIC BALM CRM 3OZ EXT PRN (21:00)
[2022-05-09] MEDS: FAMOTIDINE 20 MG TAB PO SCH (22:39)
[2022-05-09] MEDS: PIPERACILLIN/TAZOBACTAM SOD 4.5 GM in D5W MINI-BAG PLUS 50 ML IV SCH (22:39)
[2022-05-09] MEDS: SENOKOT S TAB PO SCH (22:40)
[2022-05-09] MEDS: ATORVASTATIN 20 MG TAB PO SCH (22:40)
[2022-05-09] MEDS: SERTRALINE 100 MG TAB PO SCH (22:40)
[2022-05-10] VITALS (7 sets, daily range): BP systolic 119–164; BP diastolic 56–78
[2022-05-10] MEDS: INSULIN LISPRO (NovoLOG) PER UNIT SC SCH ×5 (00:34→23:52)
[2022-05-10] MEDS: PIPERACILLIN/TAZOBACTAM SOD 4.5 GM in D5W MINI-BAG PLUS 50 ML IV SCH ×4 (01:01→20:14)
[2022-05-10] MEDS: NS 1,000 ML IV SCH ×3 (02:13→23:00)
[2022-05-10 08:06] LABS: HEMATOCRIT 30.9 % (36.0-47.0)
[2022-05-10 08:07] LABS: HEMOGLOBIN 10.2 g/dl (12.0-15.5)
[2022-05-10 08:30] LABS: BASO # 0.1 10^3/uL (0.0-0.2); BASO % 0.4 % (0.0-1.0); EOS # 0.3 10^3/uL (0.0-0.5); EOS % 1.8 % (0.0-3.0); LYMPH % 28.2 % (24.0-44.0); MEAN CORPUSCULAR HEMOGLOBIN 26.4 pg (27.0-33.0); MEAN CORPUSCULAR HGB CONC 31.9 g/dl (32.0-36.5); MEAN CORPUSCULAR VOLUME 82.6 fl (80.0-96.0); MONO % 11.2 % (2.0-8.0); NEUTROPHILS # 8.3 10^3/uL (1.5-8.5); PLATELET COUNT, AUTOMATED 205 10^3/uL (150-450); RED BLOOD COUNT 3.79 10^6/uL (4.00-5.40); WHITE BLOOD COUNT 14.3 10^3/uL (4.0-10.0)
[2022-05-10 08:50] LABS: ALBUMIN 2.9 GM/DL (3.2-5.2); BILIRUBIN,TOTAL 0.8 MG/DL (0.2-1.0); CALCIUM LEVEL 8.1 MG/DL (8.8-10.2); CREATININE FOR GFR 1.07 MG/DL (0.55-1.30); GLOMERULAR FILTRATION RATE 54.8 (>45); MAGNESIUM LEVEL 2.2 MG/DL (1.8-2.4); POTASSIUM SERUM 4.7 MEQ/L (3.5-5.1); TOTAL PROTEIN 5.6 GM/DL (6.4-8.2)
[2022-05-10] MEDS: GABAPENTIN 100 MG CAP PO SCH ×3 (08:56→20:14)
[2022-05-10] MEDS: PANTOPRAZOLE 40MG VIAL IV SCH ×2 (08:56→20:14)
[2022-05-10] MEDS: SUCRALFATE 1 GM TAB PO SCH ×4 (08:56→20:14)
[2022-05-10] MEDS: METOPROLOL SUCC *XL* 25MG TAB (TopROL *XL*) PO SCH (08:57)
[2022-05-10] MEDS: HYDROXYCHLOROQUINE 200 MG TAB PO SCH (08:57)
[2022-05-10] MEDS: OMEPRAZOLE 20MG CAP PO SCH (08:57)
[2022-05-10 08:58] LABS: MONO # 1.6 10^3/uL (0.0-0.8)
[2022-05-10] MEDS: FLUTICASONE PROP 0.05% NASAL SPRAY 16 GM (FLONASE) SCH (08:58)
[2022-05-10] MEDS: SENOKOT S TAB PO SCH ×2 (09:00→20:15)
[2022-05-10] MEDS: TELMISARTAN 20 MG TAB PO SCH (09:08)
[2022-05-10 10:11] LABS: INR 1.38; PROTHROMBIN TIME 17.4 SECONDS (12.7-14.5)
[2022-05-10] MEDS: MORPHINE 2 MG/ML 1ML VIAL IV PRN ×2 (11:09→16:17)
[2022-05-10 12:37] LABS: BASO % 0.3 % (0.0-1.0); EOS # 0.3 10^3/uL (0.0-0.5); EOS % 2.5 % (0.0-3.0); HEMATOCRIT 30.4 % (36.0-47.0); HEMOGLOBIN 9.8 g/dl (12.0-15.5); LYMPH # 3.3 10^3/uL (1.5-5.0); LYMPH % 30.1 % (24.0-44.0); MEAN CORPUSCULAR HEMOGLOBIN 26.3 pg (27.0-33.0); MEAN CORPUSCULAR HGB CONC 32.2 g/dl (32.0-36.5); MEAN CORPUSCULAR VOLUME 81.7 fl (80.0-96.0); MONO # 0.9 10^3/uL (0.0-0.8); MONO % 8.5 % (2.0-8.0); NEUTROPHILS # 6.4 10^3/uL (1.5-8.5); NEUTROPHILS % 57.9 % (36.0-66.0); PLATELET COUNT, AUTOMATED 182 10^3/uL (150-450); RED BLOOD COUNT 3.72 10^6/uL (4.00-5.40)
[2022-05-10] MEDS: FAMOTIDINE 20 MG TAB PO SCH (20:14)
[2022-05-10] MEDS: ATORVASTATIN 20 MG TAB PO SCH (20:14)
[2022-05-10] MEDS: SERTRALINE 100 MG TAB PO SCH (20:14)
[2022-05-11] VITALS: BP 143/64
[2022-05-11] MEDS: PIPERACILLIN/TAZOBACTAM SOD 4.5 GM in D5W MINI-BAG PLUS 50 ML IV SCH ×4 (01:30→21:06)
[2022-05-11 04:00] VITALS: BP 178/70
[2022-05-11] MEDS: INSULIN LISPRO (NovoLOG) PER UNIT SC SCH ×3 (05:34→17:41)
[2022-05-11 07:57] VITALS: BP 144/63
[2022-05-11 08:11] LABS: BASO % 0.4 % (0.0-1.0); EOS # 0.4 10^3/uL (0.0-0.5); EOS % 4.1 % (0.0-3.0); HEMATOCRIT 26.8 % (36.0-47.0); HEMOGLOBIN 8.7 g/dl (12.0-15.5); LYMPH # 2.4 10^3/uL (1.5-5.0); LYMPH % 28.2 % (24.0-44.0); MEAN CORPUSCULAR HEMOGLOBIN 26.9 pg (27.0-33.0); MEAN CORPUSCULAR HGB CONC 32.5 g/dl (32.0-36.5); MEAN CORPUSCULAR VOLUME 82.7 fl (80.0-96.0); MONO # 0.8 10^3/uL (0.0-0.8); NEUTROPHILS # 4.8 10^3/uL (1.5-8.5); NEUTROPHILS % 56.7 % (36.0-66.0); RED BLOOD COUNT 3.24 10^6/uL (4.00-5.40); WHITE BLOOD COUNT 8.4 10^3/uL (4.0-10.0)
[2022-05-11] MEDS: NS 1,000 ML IV SCH ×2 (08:34→20:15)
[2022-05-11] MEDS: PANTOPRAZOLE 40MG VIAL IV SCH ×2 (08:34→21:07)
[2022-05-11] MEDS: OMEPRAZOLE 20MG CAP PO SCH (08:34)
[2022-05-11] MEDS: HYDROXYCHLOROQUINE 200 MG TAB PO SCH (08:35)
[2022-05-11] MEDS: TELMISARTAN 20 MG TAB PO SCH (08:35)
[2022-05-11] MEDS: FERROUS SULFATE 325MG TAB PO SCH (08:35)
[2022-05-11] MEDS: GABAPENTIN 100 MG CAP PO SCH ×3 (08:35→21:07)
[2022-05-11] MEDS: METOPROLOL SUCC *XL* 25MG TAB (TopROL *XL*) PO SCH (08:36)
[2022-05-11] MEDS: SENOKOT S TAB PO SCH ×2 (08:37→21:07)
[2022-05-11] MEDS: SUCRALFATE 1 GM TAB PO SCH ×4 (08:37→21:07)
[2022-05-11 08:40] LABS: ALBUMIN 2.9 GM/DL (3.2-5.2); BILIRUBIN,TOTAL 0.4 MG/DL (0.2-1.0); CALCIUM LEVEL 8.2 MG/DL (8.8-10.2); CREATININE FOR GFR 0.99 MG/DL (0.55-1.30); GLOMERULAR FILTRATION RATE 59.9 (>45); MAGNESIUM LEVEL 2.1 MG/DL (1.8-2.4); POTASSIUM SERUM 4.3 MEQ/L (3.5-5.1); TOTAL PROTEIN 5.4 GM/DL (6.4-8.2)
[2022-05-11] MEDS: FLUTICASONE PROP 0.05% NASAL SPRAY 16 GM (FLONASE) SCH (09:21)
[2022-05-11 12:01] VITALS: BP 152/67
[2022-05-11 16:07] VITALS: BP 150/65
[2022-05-11 16:59] LABS: BASO % 0.3 % (0.0-1.0); EOS # 0.3 10^3/uL (0.0-0.5); EOS % 3.3 % (0.0-3.0); HEMATOCRIT 28.1 % (36.0-47.0); HEMOGLOBIN 9.1 g/dl (12.0-15.5); LYMPH # 2.6 10^3/uL (1.5-5.0); LYMPH % 27.7 % (24.0-44.0); MEAN CORPUSCULAR HEMOGLOBIN 26.8 pg (27.0-33.0); MEAN CORPUSCULAR HGB CONC 32.4 g/dl (32.0-36.5); MEAN CORPUSCULAR VOLUME 82.9 fl (80.0-96.0); MONO # 0.8 10^3/uL (0.0-0.8); MONO % 8.3 % (2.0-8.0); NEUTROPHILS # 5.6 10^3/uL (1.5-8.5); NEUTROPHILS % 60.2 % (36.0-66.0); PLATELET COUNT, AUTOMATED 192 10^3/uL (150-450); RED BLOOD COUNT 3.39 10^6/uL (4.00-5.40); WHITE BLOOD COUNT 9.3 10^3/uL (4.0-10.0)
[2022-05-11 20:00] VITALS: BP 142/64
[2022-05-11] MEDS: SERTRALINE 100 MG TAB PO SCH (21:07)
[2022-05-11] MEDS: FAMOTIDINE 20 MG TAB PO SCH (21:07)
[2022-05-11] MEDS: ATORVASTATIN 20 MG TAB PO SCH (21:07)
[2022-05-12] VITALS (10 sets, daily range): BP systolic 128–184; BP diastolic 60–95
[2022-05-12] MEDS: NORCO, ANEXSIA 5/325MG TABLET (HYDROcodone/ACETAMINOPHEN) PO PRN ×2 (00:02→08:15)
[2022-05-12] MEDS: PIPERACILLIN/TAZOBACTAM SOD 4.5 GM in D5W MINI-BAG PLUS 50 ML IV SCH ×4 (02:12→20:35)
[2022-05-12 05:30] LABS: BASO % 0.3 % (0.0-1.0); EOS # 0.3 10^3/uL (0.0-0.5); EOS % 3.4 % (0.0-3.0); HEMATOCRIT 24.5 % (36.0-47.0); HEMOGLOBIN 7.8 g/dl (12.0-15.5); LYMPH # 2.9 10^3/uL (1.5-5.0); LYMPH % 36.4 % (24.0-44.0); MEAN CORPUSCULAR HEMOGLOBIN 26.3 pg (27.0-33.0); MEAN CORPUSCULAR HGB CONC 31.8 g/dl (32.0-36.5); MEAN CORPUSCULAR VOLUME 82.5 fl (80.0-96.0); MONO # 0.8 10^3/uL (0.0-0.8); MONO % 10.1 % (2.0-8.0); NEUTROPHILS # 3.9 10^3/uL (1.5-8.5); NEUTROPHILS % 49.5 % (36.0-66.0); PLATELET COUNT, AUTOMATED 185 10^3/uL (150-450); RED BLOOD COUNT 2.97 10^6/uL (4.00-5.40); WHITE BLOOD COUNT 7.8 10^3/uL (4.0-10.0)
[2022-05-12 05:50] LABS: CREATININE FOR GFR 1.1 MG/DL (0.55-1.30); GLOMERULAR FILTRATION RATE 53.1 (>45); MAGNESIUM LEVEL 1.8 MG/DL (1.8-2.4); POTASSIUM SERUM 3.5 MEQ/L (3.5-5.1)
[2022-05-12] MEDS: INSULIN LISPRO (NovoLOG) PER UNIT SC SCH ×5 (05:55→23:14)
[2022-05-12] MEDS: SUCRALFATE 1 GM TAB PO SCH ×4 (08:14→20:39)
[2022-05-12] MEDS: PANTOPRAZOLE 40MG VIAL IV SCH ×2 (08:14→20:35)
[2022-05-12] MEDS: OMEPRAZOLE 20MG CAP PO SCH (08:15)
[2022-05-12] MEDS: HYDROXYCHLOROQUINE 200 MG TAB PO SCH (08:16)
[2022-05-12] MEDS: TELMISARTAN 20 MG TAB PO SCH (08:16)
[2022-05-12] MEDS: METOPROLOL SUCC *XL* 25MG TAB (TopROL *XL*) PO SCH (08:16)
[2022-05-12] MEDS: SENOKOT S TAB PO SCH ×2 (08:16→20:39)
[2022-05-12] MEDS: GABAPENTIN 100 MG CAP PO SCH ×3 (08:16→20:39)
[2022-05-12] MEDS: FLUTICASONE PROP 0.05% NASAL SPRAY 16 GM (FLONASE) SCH (08:17)
[2022-05-12] MEDS ORDERED: ISOVUE-370 76% 100ML VIAL As Ordered ONE (10:20)
[2022-05-12] MEDS: GASTROGRAFIN SOLUTION 30ML PO SCH ×2 (11:15→11:54)
[2022-05-12] MEDS: NS 1,000 ML IV SCH ×2 (11:50→21:50)
[2022-05-12] MEDS: SERTRALINE 100 MG TAB PO SCH (20:39)
[2022-05-12] MEDS: ATORVASTATIN 20 MG TAB PO SCH (20:39)
[2022-05-12] MEDS: FAMOTIDINE 20 MG TAB PO SCH (20:39)
[2022-05-13] VITALS (9 sets, daily range): BP systolic 139–200; BP diastolic 69–100
[2022-05-13] MEDS: PIPERACILLIN/TAZOBACTAM SOD 4.5 GM in D5W MINI-BAG PLUS 50 ML IV SCH ×4 (01:19→20:14)
[2022-05-13 03:02] LABS: BASO % 0.1 % (0.0-1.0); EOS # 0.3 10^3/uL (0.0-0.5); EOS % 3.4 % (0.0-3.0); HEMATOCRIT 33.3 % (36.0-47.0); LYMPH # 1.9 10^3/uL (1.5-5.0); LYMPH % 22.5 % (24.0-44.0); MEAN CORPUSCULAR HEMOGLOBIN 28.2 pg (27.0-33.0); MEAN CORPUSCULAR HGB CONC 33.3 g/dl (32.0-36.5); MEAN CORPUSCULAR VOLUME 84.5 fl (80.0-96.0); MONO # 0.9 10^3/uL (0.0-0.8); MONO % 10.1 % (2.0-8.0); NEUTROPHILS # 5.4 10^3/uL (1.5-8.5); NEUTROPHILS % 63.5 % (36.0-66.0); PLATELET COUNT, AUTOMATED 176 10^3/uL (150-450); RED BLOOD COUNT 3.94 10^6/uL (4.00-5.40); WHITE BLOOD COUNT 8.5 10^3/uL (4.0-10.0)
[2022-05-13 03:11] LABS: HEMOGLOBIN 11.1 g/dl (12.0-15.5)
[2022-05-13 03:23] LABS: CALCIUM LEVEL 8.3 MG/DL (8.8-10.2); CREATININE FOR GFR 1.02 MG/DL (0.55-1.30); GLOMERULAR FILTRATION RATE 57.9 (>45); MAGNESIUM LEVEL 1.8 MG/DL (1.8-2.4); POTASSIUM SERUM 3.2 MEQ/L (3.5-5.1)
[2022-05-13] MEDS ORDERED: hydrALAZINE 20MG/ML 1ML VIAL (J0360 PER 20MG) IV ONE (05:00)
[2022-05-13] MEDS: INSULIN LISPRO (NovoLOG) PER UNIT SC SCH ×4 (05:04→23:15)
[2022-05-13] MEDS ORDERED: POTASSIUM CHLORIDE 10% LIQ 20 MEQ/15 ML UDC PO ONE (06:00)
[2022-05-13] MEDS: MORPHINE 2 MG/ML 1ML VIAL IV PRN (06:10)
[2022-05-13] MEDS ORDERED: POTASSIUM CHLORIDE 10MEQ SR TABLET PO ONE (08:00)
[2022-05-13] MEDS: PANTOPRAZOLE 40MG VIAL IV SCH ×2 (08:19→20:14)
[2022-05-13] MEDS: TELMISARTAN 20 MG TAB PO SCH (08:20)
[2022-05-13] MEDS: FERROUS SULFATE 325MG TAB PO SCH (08:20)
[2022-05-13] MEDS: METOPROLOL SUCC *XL* 25MG TAB (TopROL *XL*) PO SCH (08:20)
[2022-05-13] MEDS: GABAPENTIN 100 MG CAP PO SCH ×3 (08:20→20:19)
[2022-05-13] MEDS: HYDROXYCHLOROQUINE 200 MG TAB PO SCH (08:20)
[2022-05-13] MEDS: OMEPRAZOLE 20MG CAP PO SCH (08:21)
[2022-05-13] MEDS: SENOKOT S TAB PO SCH ×2 (08:21→20:19)
[2022-05-13] MEDS: SUCRALFATE 1 GM TAB PO SCH ×4 (08:21→20:19)
[2022-05-13] MEDS: FLUTICASONE PROP 0.05% NASAL SPRAY 16 GM (FLONASE) SCH (08:23)
[2022-05-13] MEDS: NS 1,000 ML IV SCH ×2 (08:23→20:18)
[2022-05-13] MEDS ORDERED: GOLYTELY SOLN 4000 ML BTL PO ONE (14:00)
[2022-05-13] MEDS: FAMOTIDINE 20 MG TAB PO SCH (20:19)
[2022-05-13] MEDS: SERTRALINE 100 MG TAB PO SCH (20:19)
[2022-05-13] MEDS: ATORVASTATIN 20 MG TAB PO SCH (20:19)
[2022-05-13] MEDS: zolPIDEM TARTRATE 5 MG TAB PO SCH (20:19)
[2022-05-14] MEDS: PIPERACILLIN/TAZOBACTAM SOD 4.5 GM in D5W MINI-BAG PLUS 50 ML IV SCH ×4 (01:40→20:28)
[2022-05-14 04:00] VITALS: BP 186/84
[2022-05-14] MEDS ORDERED: hydrALAZINE 20MG/ML 1ML VIAL (J0360 PER 20MG) IV ONE (05:00)
[2022-05-14] MEDS: INSULIN LISPRO (NovoLOG) PER UNIT SC SCH ×4 (05:06→23:56)
[2022-05-14 05:30] VITALS: BP 164/77
[2022-05-14] MEDS: NS 1,000 ML IV SCH ×3 (05:54→20:28)
[2022-05-14 05:57] LABS: BASO % 0.2 % (0.0-1.0); EOS # 0.3 10^3/uL (0.0-0.5); EOS % 2.9 % (0.0-3.0); HEMATOCRIT 36.6 % (36.0-47.0); HEMOGLOBIN 12.5 g/dl (12.0-15.5); LYMPH # 2.6 10^3/uL (1.5-5.0); LYMPH % 30.1 % (24.0-44.0); MEAN CORPUSCULAR HEMOGLOBIN 28.7 pg (27.0-33.0); MEAN CORPUSCULAR HGB CONC 34.2 g/dl (32.0-36.5); MEAN CORPUSCULAR VOLUME 83.9 fl (80.0-96.0); MONO # 0.9 10^3/uL (0.0-0.8); MONO % 10.4 % (2.0-8.0); NEUTROPHILS # 4.9 10^3/uL (1.5-8.5); NEUTROPHILS % 56.1 % (36.0-66.0); PLATELET COUNT, AUTOMATED 226 10^3/uL (150-450); RED BLOOD COUNT 4.36 10^6/uL (4.00-5.40); WHITE BLOOD COUNT 8.7 10^3/uL (4.0-10.0)
[2022-05-14 06:19] LABS: BLOOD UREA NITROGEN 5 MG/DL (7-18); CALCIUM LEVEL 8.5 MG/DL (8.8-10.2); CARBON DIOXIDE LEVEL 23 MEQ/L (21-32); CHLORIDE LEVEL 114 MEQ/L (98-107); CREATININE FOR GFR 0.95 MG/DL (0.55-1.30); GLOMERULAR FILTRATION RATE > 60.0 (>45); GLUCOSE, FASTING 89 MG/DL (70-100); MAGNESIUM LEVEL 1.8 MG/DL (1.8-2.4); POTASSIUM SERUM 3.3 MEQ/L (3.5-5.1); SODIUM LEVEL 143 MEQ/L (136-145)
[2022-05-14] MEDS ORDERED: KCL 10MEQ/100ML SWI (KRUN) 10 MEQ in IV 1 EA IV ONE (07:00)
[2022-05-14] MEDS: SUCRALFATE 1 GM TAB PO SCH ×4 (07:30→20:28)
[2022-05-14] MEDS ORDERED: hydrALAZINE 20MG/ML 1ML VIAL (J0360 PER 20MG) IV PRN (07:40)
[2022-05-14] MEDS ORDERED: POTASSIUM CHLORIDE 10MEQ SR TABLET PO ONE (07:45)
[2022-05-14 07:59] VITALS: BP 154/72
[2022-05-14] MEDS: PANTOPRAZOLE 40MG VIAL IV SCH ×2 (09:06→20:28)
[2022-05-14] MEDS: GABAPENTIN 100 MG CAP PO SCH ×3 (09:07→20:29)
[2022-05-14] MEDS: OMEPRAZOLE 20MG CAP PO SCH (09:07)
[2022-05-14] MEDS: METOPROLOL SUCC *XL* 25MG TAB (TopROL *XL*) PO SCH (09:07)
[2022-05-14] MEDS: SENOKOT S TAB PO SCH ×2 (09:07→20:28)
[2022-05-14] MEDS: FLUTICASONE PROP 0.05% NASAL SPRAY 16 GM (FLONASE) SCH (09:08)
[2022-05-14] MEDS: HYDROXYCHLOROQUINE 200 MG TAB PO SCH (10:01)
[2022-05-14] MEDS: TELMISARTAN 20 MG TAB PO SCH (10:01)
[2022-05-14 11:59] VITALS: BP 178/80
[2022-05-14] MEDS ORDERED: LIDOCAINE 2% MDV 20ML VIAL As Ordered ONE (14:34)
[2022-05-14] MEDS ORDERED: propofoL 200 MG/20 ML VIAL As Ordered ONE (14:36)
[2022-05-14] MEDS ORDERED: LABETALOL 100MG/20ML VIAL As Ordered ONE (14:38)
[2022-05-14 15:35] VITALS: BP 136/91
[2022-05-14] MEDS: ATORVASTATIN 20 MG TAB PO SCH (20:28)
[2022-05-14] MEDS: SERTRALINE 100 MG TAB PO SCH (20:28)
[2022-05-14] MEDS: FAMOTIDINE 20 MG TAB PO SCH (20:29)
[2022-05-14 21:00] VITALS: BP 145/79
[2022-05-14] MEDS: zolPIDEM TARTRATE 5 MG TAB PO SCH (21:43)
[2022-05-15] MEDS: PIPERACILLIN/TAZOBACTAM SOD 4.5 GM in D5W MINI-BAG PLUS 50 ML IV SCH ×4 (02:25→20:35)
[2022-05-15 06:00] VITALS: BP 135/82
[2022-05-15 06:22] LABS: BASO % 0.2 % (0.0-1.0); EOS # 0.2 10^3/uL (0.0-0.5); EOS % 2.3 % (0.0-3.0); HEMATOCRIT 32.6 % (36.0-47.0); HEMOGLOBIN 10.9 g/dl (12.0-15.5); LYMPH # 2.1 10^3/uL (1.5-5.0); LYMPH % 25.3 % (24.0-44.0); MEAN CORPUSCULAR HEMOGLOBIN 28.6 pg (27.0-33.0); MEAN CORPUSCULAR HGB CONC 33.4 g/dl (32.0-36.5); MEAN CORPUSCULAR VOLUME 85.6 fl (80.0-96.0); MONO % 11.5 % (2.0-8.0); NEUTROPHILS % 60.3 % (36.0-66.0); PLATELET COUNT, AUTOMATED 225 10^3/uL (150-450); RED BLOOD COUNT 3.81 10^6/uL (4.00-5.40); WHITE BLOOD COUNT 8.4 10^3/uL (4.0-10.0)
[2022-05-15 06:31] LABS: INR 1.05; PROTHROMBIN TIME 14.1 SECONDS (12.7-14.5)
[2022-05-15 06:32] LABS: PARTIAL THROMBOPLASTIN TIME 25.7 SECONDS (25.9-37.0)
[2022-05-15 07:10] LABS: CALCIUM LEVEL 8.3 MG/DL (8.8-10.2); CREATININE FOR GFR 1.03 MG/DL (0.55-1.30); GLOMERULAR FILTRATION RATE 57.3 (>45); MAGNESIUM LEVEL 1.8 MG/DL (1.8-2.4); POTASSIUM SERUM 3.3 MEQ/L (3.5-5.1)
[2022-05-15] MEDS: INSULIN LISPRO (NovoLOG) PER UNIT SC SCH ×3 (07:12→16:55)
[2022-05-15] MEDS: OMEPRAZOLE 20MG CAP PO SCH (08:29)
[2022-05-15] MEDS: SUCRALFATE 1 GM TAB PO SCH ×4 (08:29→20:34)
[2022-05-15] MEDS: PANTOPRAZOLE 40MG VIAL IV SCH ×2 (08:29→20:34)
[2022-05-15] MEDS: SENOKOT S TAB PO SCH ×2 (08:29→20:34)
[2022-05-15] MEDS: HYDROXYCHLOROQUINE 200 MG TAB PO SCH (08:29)
[2022-05-15] MEDS: FERROUS SULFATE 325MG TAB PO SCH (08:29)
[2022-05-15] MEDS: GABAPENTIN 100 MG CAP PO SCH ×3 (08:30→20:34)
[2022-05-15] MEDS: TELMISARTAN 20 MG TAB PO SCH (08:30)
[2022-05-15] MEDS: METOPROLOL SUCC *XL* 25MG TAB (TopROL *XL*) PO SCH (08:30)
[2022-05-15] MEDS ORDERED: NITAZOXANIDE 500 MG TAB (ALINIA) PO SCH (09:00)
[2022-05-15] MEDS: FLUTICASONE PROP 0.05% NASAL SPRAY 16 GM (FLONASE) SCH (09:23)
[2022-05-15 14:00] VITALS: BP 122/75
[2022-05-15] MEDS: zolPIDEM TARTRATE 5 MG TAB PO SCH (20:34)
[2022-05-15] MEDS: SERTRALINE 100 MG TAB PO SCH (20:34)
[2022-05-15] MEDS: FAMOTIDINE 20 MG TAB PO SCH (20:34)
[2022-05-15] MEDS: ATORVASTATIN 20 MG TAB PO SCH (20:35)
[2022-05-15 22:00] VITALS: BP 130/74
[2022-05-15] MEDS: NORCO, ANEXSIA 5/325MG TABLET (HYDROcodone/ACETAMINOPHEN) PO PRN (23:56)
[2022-05-16 05:52] LABS: BASO % 0.1 % (0.0-1.0); EOS # 0.2 10^3/uL (0.0-0.5); EOS % 2.6 % (0.0-3.0); HEMATOCRIT 33.2 % (36.0-47.0); LYMPH # 2.2 10^3/uL (1.5-5.0); LYMPH % 26.5 % (24.0-44.0); MEAN CORPUSCULAR HEMOGLOBIN 28.4 pg (27.0-33.0); MEAN CORPUSCULAR HGB CONC 33.1 g/dl (32.0-36.5); MEAN CORPUSCULAR VOLUME 85.6 fl (80.0-96.0); MONO # 0.9 10^3/uL (0.0-0.8); MONO % 11.2 % (2.0-8.0); NEUTROPHILS # 4.9 10^3/uL (1.5-8.5); NEUTROPHILS % 59.4 % (36.0-66.0); PLATELET COUNT, AUTOMATED 242 10^3/uL (150-450); RED BLOOD COUNT 3.88 10^6/uL (4.00-5.40); WHITE BLOOD COUNT 8.3 10^3/uL (4.0-10.0)
[2022-05-16 06:00] VITALS: BP 134/64
[2022-05-16] MEDS: INSULIN LISPRO (NovoLOG) PER UNIT SC SCH ×3 (06:00→12:00)
[2022-05-16 06:02] LABS: INR 0.93; PROTHROMBIN TIME 12.9 SECONDS (12.7-14.5)
[2022-05-16 06:03] LABS: PARTIAL THROMBOPLASTIN TIME 25.8 SECONDS (25.9-37.0)
[2022-05-16 06:15] LABS: CALCIUM LEVEL 8.3 MG/DL (8.8-10.2); CREATININE FOR GFR 1.01 MG/DL (0.55-1.30); GLOMERULAR FILTRATION RATE 58.6 (>45); MAGNESIUM LEVEL 1.7 MG/DL (1.8-2.4); POTASSIUM SERUM 3.1 MEQ/L (3.5-5.1)
[2022-05-16] MEDS ORDERED: MAGN400T2 PO (08:09)
[2022-05-16] MEDS ORDERED: POTA-151 PO (08:13)
[2022-05-16] MEDS ORDERED: POTASSIUM CHLORIDE 10MEQ SR TABLET PO ONE (08:20)
[2022-05-16] MEDS: SENOKOT S TAB PO SCH (09:00)
[2022-05-16] MEDS ORDERED: MAGNESIUM OXIDE 400MG TAB (MAG-OX) PO SCH (09:00)
[2022-05-16] MEDS: SUCRALFATE 1 GM TAB PO SCH ×2 (09:03→12:07)
[2022-05-16] MEDS: PANTOPRAZOLE 40MG VIAL IV SCH (09:03)
[2022-05-16] MEDS: HYDROXYCHLOROQUINE 200 MG TAB PO SCH (09:03)
[2022-05-16] MEDS: TELMISARTAN 20 MG TAB PO SCH (09:03)
[2022-05-16 09:04] VITALS: BP 134/64
[2022-05-16] MEDS: METOPROLOL SUCC *XL* 25MG TAB (TopROL *XL*) PO SCH (09:04)
[2022-05-16] MEDS: OMEPRAZOLE 20MG CAP PO SCH (09:04)
[2022-05-16] MEDS: GABAPENTIN 100 MG CAP PO SCH (09:04)
[2022-05-16] MEDS: FLUTICASONE PROP 0.05% NASAL SPRAY 16 GM (FLONASE) SCH (09:05)
== END 2022-05-16 13:13 | disposition home or self-care (01) | DRG 920 ==
LOC: EDBD 20:21 → M ED 20:21 → M ED INP 05-09 03:50 → ENRESERV 05-09 15:06 → M PCU 05-09 16:06 → M MSPAV 05-14 13:40
PROVIDERS: ADMIT Internal Medicine; ATTEND Internal Medicine
PROC: 30233N1 Transfusion of Nonautologous Red Blood Cells into Peripheral Vein, Percutaneous Approach (ICD-10-PCS; 2022-05-09)
PROC: 0W3P8ZZ Control Bleeding in Gastrointestinal Tract, Via Natural or Artificial Opening Endoscopic (ICD-10-PCS; principal; 2022-05-14 14:00)
DX: K91.840 Postprocedural hemorrhage of a digestive system organ or structure following a digestive system procedure (principal); K92.1 Melena; I48.20 Chronic atrial fibrillation, unspecified; D62 Acute posthemorrhagic anemia; I69.351 Hemiplegia and hemiparesis following cerebral infarction affecting right dominant side; K63.3 Ulcer of intestine; M32.9 Systemic lupus erythematosus, unspecified; J44.9 Chronic obstructive pulmonary disease, unspecified; E11.22 Type 2 diabetes mellitus with diabetic chronic kidney disease; E11.42 Type 2 diabetes mellitus with diabetic polyneuropathy; I12.9 Hypertensive chronic kidney disease with stage 1 through stage 4 chronic kidney disease, or unspecified chronic kidney disease; K21.9 Gastro-esophageal reflux disease without esophagitis; N18.30 Chronic kidney disease, stage 3 unspecified; E78.5 Hyperlipidemia, unspecified; K57.30 Diverticulosis of large intestine without perforation or abscess without bleeding; F32.A Depression, unspecified; F41.9 Anxiety disorder, unspecified; Z79.01 Long term (current) use of anticoagulants; Z79.82 Long term (current) use of aspirin; Z91.040 Latex allergy status; Z88.8 Allergy status to other drugs, medicaments and biological substances; Z79.899 Other long term (current) drug therapy; Z87.891 Personal history of nicotine dependence; Z79.4 Long term (current) use of insulin

== ENCOUNTER → 2022-05-19 | Outpatient (REF) | payer MEDICARE, MEDICAID ==
[~2022-05-19] MED LIST changes: +ACET-907 PO; +ASPI-161 PO; +CARA1TAB6 PO; +MAGN400T2 PO; +MIRA1POW3 PO; +POTA-151 PO; +SENN-23 PO; +ZOLP10TA2 PO
[2022-05-19 10:40] LABS: MAGNESIUM LEVEL 2.1 MG/DL (1.8-2.4)
== END ==
PROVIDERS: ATTEND Physician Assistant Medical
DX: K92.2 Gastrointestinal hemorrhage, unspecified (principal); I48.91 Unspecified atrial fibrillation

== ENCOUNTER → 2022-05-21 | Outpatient (REF) | payer MEDICARE, MEDICAID | PROVIDERS: ATTEND Nurse Practitioner Family | DX: I48.0 Paroxysmal atrial fibrillation (principal); Z53.8 Procedure and treatment not carried out for other reasons ==

== ENCOUNTER → 2022-05-26 | Outpatient (REF) | payer MEDICARE, MEDICAID ==
[2022-05-26 10:33] LABS: INR 1.47; PROTHROMBIN TIME 18.2 SECONDS (12.7-14.5)
== END ==
PROVIDERS: ATTEND Nurse Practitioner Family
DX: I48.91 Unspecified atrial fibrillation (principal)

== ENCOUNTER → 2022-05-27 | Outpatient (CLI) | payer MEDICARE, MEDICAID ==
[2022-05-27 18:27] LABS: BASO # 0.1 10^3/uL (0.0-0.2); BASO % 0.6 % (0.0-1.0); EOS # 0.2 10^3/uL (0.0-0.5); EOS % 1.8 % (0.0-3.0); HEMATOCRIT 41.7 % (36.0-47.0); HEMOGLOBIN 12.9 g/dl (12.0-15.5); LYMPH # 3.4 10^3/uL (1.5-5.0); MEAN CORPUSCULAR HEMOGLOBIN 27.4 pg (27.0-33.0); MEAN CORPUSCULAR HGB CONC 30.9 g/dl (32.0-36.5); MEAN CORPUSCULAR VOLUME 88.5 fl (80.0-96.0); MONO % 9.3 % (2.0-8.0); NEUTROPHILS # 5.7 10^3/uL (1.5-8.5); PLATELET COUNT, AUTOMATED 368 10^3/uL (150-450); RED BLOOD COUNT 4.71 10^6/uL (4.00-5.40); WHITE BLOOD COUNT 10.3 10^3/uL (4.0-10.0)
[2022-05-27 19:13] LABS: ALBUMIN 3.7 GM/DL (3.2-5.2); BILIRUBIN,TOTAL 0.2 MG/DL (0.2-1.0); CALCIUM LEVEL 9.4 MG/DL (8.8-10.2); CREATININE FOR GFR 1.11 MG/DL (0.55-1.30); GLOMERULAR FILTRATION RATE 52.4 (>45)
== END ==
LOC: M PLALAB 14:40
PROVIDERS: ATTEND Physician Assistant Medical
DX: N18.30 Chronic kidney disease, stage 3 unspecified (principal); K92.2 Gastrointestinal hemorrhage, unspecified

== ENCOUNTER → 2022-06-18 | Outpatient (REF) | payer MEDICARE, MEDICAID ==
[2022-06-18 11:50] LABS: BASO % 0.6 % (0.0-1.0); EOS # 0.2 10^3/uL (0.0-0.5); EOS % 2.7 % (0.0-3.0); HEMATOCRIT 38.6 % (36.0-47.0); HEMOGLOBIN 12.1 g/dl (12.0-15.5); LYMPH # 2.5 10^3/uL (1.5-5.0); LYMPH % 35.1 % (24.0-44.0); MEAN CORPUSCULAR HEMOGLOBIN 27.2 pg (27.0-33.0); MEAN CORPUSCULAR HGB CONC 31.3 g/dl (32.0-36.5); MEAN CORPUSCULAR VOLUME 86.7 fl (80.0-96.0); MONO # 0.7 10^3/uL (0.0-0.8); MONO % 9.2 % (2.0-8.0); NEUTROPHILS # 3.7 10^3/uL (1.5-8.5); NEUTROPHILS % 52.1 % (36.0-66.0); PLATELET COUNT, AUTOMATED 264 10^3/uL (150-450); RED BLOOD COUNT 4.45 10^6/uL (4.00-5.40); WHITE BLOOD COUNT 7.2 10^3/uL (4.0-10.0)
[2022-06-18 12:03] LABS: INR 2.17; PROTHROMBIN TIME 24.6 SECONDS (12.7-14.5)
[2022-06-18 13:00] LABS: ALBUMIN 3.1 GM/DL (3.2-5.2); BILIRUBIN,TOTAL 0.3 MG/DL (0.2-1.0); CALCIUM LEVEL 9.1 MG/DL (8.8-10.2); CREATININE FOR GFR 1.08 MG/DL (0.55-1.30); POTASSIUM SERUM 4.3 MEQ/L (3.5-5.1); TOTAL PROTEIN 6.1 GM/DL (6.4-8.2)
== END ==
PROVIDERS: ATTEND Physician Assistant Medical
DX: N18.30 Chronic kidney disease, stage 3 unspecified (principal); K92.2 Gastrointestinal hemorrhage, unspecified; I48.91 Unspecified atrial fibrillation

== ENCOUNTER → 2022-07-23 | Outpatient (REF) | payer MEDICARE, MEDICAID ==
[2022-07-24 13:02] LABS: APPEARANCE, URINE MANUAL HAZY (CLEAR); COLOR, URINE MANUAL YELLOW (YELLOW); PROTEIN, URINE MANUAL TRACE mg/dL (NEGATIVE)
[2022-07-24 13:03] LABS: BILIRUBIN, URINE MANUAL NEGATIVE (NEGATIVE); BLOOD URINE MANUAL POSITIVE (NEGATIVE); GLUCOSE, URINE (UA) MANUAL 4+(1000 MG/DL) mg/dL (NEGATIVE); KETONE, URINE MANUAL NEGATIVE (NEGATIVE); LEUKOCYTE ESTERASE, URINE MAN POSITIVE (NEGATIVE); NITRITE, URINE MANUAL POSITIVE (NEGATIVE); UROBILINOGEN, URINE MANUAL NORMAL (NORMAL)
[2022-07-24 13:15] LABS: BACTERIA, URINE LARGE AMOUNT; WBC, URINE TNTC /hpf (0-3)
[2022-07-24 13:16] LABS: SQUAMOUS EPITHELIAL CELL URINE SMALL AMOUNT /hpf (SMALL AMT)
[2022-07-24 13:17] LABS: HYALINE CAST, URINE NONE SEEN /lpf (0-1); MUCUS, URINE SMALL AMOUNT (NEGATIVE)
[2022-07-24 13:48] LABS: MALB URINE SIEMENS 56.9 MG/L; MAU/CREAT RATIO 43.1 MCG/MG (0.0-30.0)
== END ==
LOC: M SFHCPLAZ 10:07
PROVIDERS: ATTEND Nurse Practitioner Family
DX: R35.0 Frequency of micturition (principal); E11.9 Type 2 diabetes mellitus without complications

== ENCOUNTER → 2022-08-18 | Outpatient (REF) | payer MEDICARE, MEDICAID ==
[2022-08-18 10:31] LABS: BASO % 0.3 % (0.0-1.0); EOS # 0.3 10^3/uL (0.0-0.5); EOS % 4.1 % (0.0-3.0); HEMATOCRIT 36.1 % (36.0-47.0); HEMOGLOBIN 10.8 g/dl (12.0-15.5); LYMPH # 2.6 10^3/uL (1.5-5.0); LYMPH % 41.9 % (24.0-44.0); MEAN CORPUSCULAR HEMOGLOBIN 25.1 pg (27.0-33.0); MEAN CORPUSCULAR HGB CONC 29.9 g/dl (32.0-36.5); MONO # 0.7 10^3/uL (0.0-0.8); MONO % 11.1 % (2.0-8.0); NEUTROPHILS # 2.6 10^3/uL (1.5-8.5); NEUTROPHILS % 42.3 % (36.0-66.0); PLATELET COUNT, AUTOMATED 305 10^3/uL (150-450); WHITE BLOOD COUNT 6.1 10^3/uL (4.0-10.0)
[2022-08-18 10:51] LABS: INR 2.36; PROTHROMBIN TIME 26.2 SECONDS (12.5-14.5)
[2022-08-18 10:53] LABS: HEMOGLOBIN A1c 5.6 %
[2022-08-18 11:14] LABS: CHOLESTEROL RISK RATIO 2.66 (<5)
[2022-08-18 12:01] LABS: TOTAL 25(OH) VITAMIN D 17.8 NG/ML (30.0-100.0)
== END ==
PROVIDERS: ATTEND Nurse Practitioner Family
DX: E11.9 Type 2 diabetes mellitus without complications (principal); I10 Essential (primary) hypertension; E53.8 Deficiency of other specified B group vitamins; Z51.81 Encounter for therapeutic drug level monitoring; Z79.899 Other long term (current) drug therapy

== ENCOUNTER → 2022-08-20 | Outpatient (REF) | payer MEDICARE, MEDICAID ==
[2022-08-21 12:11] LABS: APPEARANCE, URINE MANUAL HAZY (CLEAR); COLOR, URINE MANUAL YELLOW (YELLOW)
[2022-08-21 12:15] LABS: BILIRUBIN, URINE MANUAL NEGATIVE (NEGATIVE); GLUCOSE, URINE (UA) MANUAL 4+(1000 MG/DL) mg/dL (NEGATIVE); KETONE, URINE MANUAL NEGATIVE (NEGATIVE); PROTEIN, URINE MANUAL TRACE mg/dL (NEGATIVE); UROBILINOGEN, URINE MANUAL NORMAL (NORMAL)
[2022-08-21 12:16] LABS: BLOOD URINE MANUAL POSITIVE (NEGATIVE); LEUKOCYTE ESTERASE, URINE MAN POSITIVE (NEGATIVE); NITRITE, URINE MANUAL POSITIVE (NEGATIVE)
[2022-08-21 12:27] LABS: BACTERIA, URINE LARGE AMOUNT
[2022-08-21 12:28] LABS: HYALINE CAST, URINE NONE SEEN /lpf (0-1); RBC, URINE 0-1 /hpf (0-3); SQUAMOUS EPITHELIAL CELL URINE SMALL AMOUNT /hpf (SMALL AMT)
== END ==
LOC: M SFHCPLAZ 09:46
PROVIDERS: ATTEND Nurse Practitioner Family
DX: R35.0 Frequency of micturition (principal)

== ENCOUNTER → 2022-09-02 | Outpatient (REF) | payer MEDICARE, MEDICAID | PROVIDERS: ATTEND Nurse Practitioner Family | DX: Z20.822 Contact with and (suspected) exposure to COVID-19 (principal) ==

== ENCOUNTER → 2022-09-15 | Outpatient (REF) | payer MEDICARE, MEDICAID ==
[2022-09-15 12:08] LABS: INR 2.79; PROTHROMBIN TIME 29.9 SECONDS (12.5-14.5)
== END ==
PROVIDERS: ATTEND Nurse Practitioner Family
DX: Z51.81 Encounter for therapeutic drug level monitoring (principal)

== ENCOUNTER → 2022-10-22 | Outpatient (REF) | payer MEDICARE, MEDICAID ==
[2022-10-22 12:19] LABS: PROTHROMBIN TIME 31.6 SECONDS (12.5-14.5)
== END ==
PROVIDERS: ATTEND Nurse Practitioner Family
DX: I48.91 Unspecified atrial fibrillation (principal)

== ENCOUNTER → 2022-11-05 | Outpatient (REF) | payer MEDICARE, MEDICAID ==
[2022-11-05 21:20] LABS: APPEARANCE, URINE MANUAL HAZY (CLEAR)
[2022-11-05 21:21] LABS: COLOR, URINE MANUAL LT YELLOW (YELLOW)
[2022-11-05 21:22] LABS: BILIRUBIN, URINE MANUAL NEGATIVE (NEGATIVE); BLOOD URINE MANUAL POSITIVE (NEGATIVE); GLUCOSE, URINE (UA) MANUAL 4+(1000 MG/DL) mg/dL (NEGATIVE); KETONE, URINE MANUAL NEGATIVE (NEGATIVE); LEUKOCYTE ESTERASE, URINE MAN POSITIVE (NEGATIVE); NITRITE, URINE MANUAL POSITIVE (NEGATIVE); PH,URINE MAN 5.5 UNITS (5.0 - 7.0); PROTEIN, URINE MANUAL NEGATIVE (NEGATIVE); SPECIFIC GRAVITY,URINE MANUAL 1.015 (1.002-1.035); UROBILINOGEN, URINE MANUAL NORMAL (NORMAL)
[2022-11-05 21:51] LABS: SQUAMOUS EPITHELIAL CELL URINE SMALL AMOUNT /hpf (SMALL AMT); WBC, URINE 40-50 /hpf (0-3)
[2022-11-05 21:52] LABS: BACTERIA, URINE LARGE AMOUNT; HYALINE CAST, URINE NONE SEEN /lpf (0-1)
== END ==
PROVIDERS: ATTEND Nurse Practitioner Family
DX: N39.0 Urinary tract infection, site not specified (principal); D64.9 Anemia, unspecified

== ENCOUNTER → 2022-11-05 | Outpatient (REF) | payer MEDICARE, MEDICAID ==
[2022-11-05 11:21] LABS: BASO % 0.5 % (0.0-1.0); EOS # 0.1 10^3/uL (0.0-0.5); EOS % 2.6 % (0.0-3.0); HEMATOCRIT 33.8 % (36.0-47.0); HEMOGLOBIN 9.8 g/dl (12.0-15.5); LYMPH # 2.3 10^3/uL (1.5-5.0); LYMPH % 41.6 % (24.0-44.0); MEAN CORPUSCULAR HEMOGLOBIN 23.7 pg (27.0-33.0); MEAN CORPUSCULAR VOLUME 81.6 fl (80.0-96.0); MONO # 0.6 10^3/uL (0.0-0.8); NEUTROPHILS # 2.4 10^3/uL (1.5-8.5); NEUTROPHILS % 44.1 % (36.0-66.0); PLATELET COUNT, AUTOMATED 324 10^3/uL (150-450); RED BLOOD COUNT 4.14 10^6/uL (4.00-5.40); WHITE BLOOD COUNT 5.5 10^3/uL (4.0-10.0)
== END ==
PROVIDERS: ATTEND Internal Medicine Gastroenterology
DX: D64.9 Anemia, unspecified (principal)

== ENCOUNTER → 2022-11-12 | Outpatient (CLI) | payer MEDICARE, MEDICAID ==
[2022-11-12 15:28] LABS: BASO % 0.6 % (0.0-1.0); EOS # 0.1 10^3/uL (0.0-0.5); HEMATOCRIT 36.2 % (36.0-47.0); HEMOGLOBIN 10.6 g/dl (12.0-15.5); LYMPH # 2.7 10^3/uL (1.5-5.0); LYMPH % 38.8 % (24.0-44.0); MEAN CORPUSCULAR HEMOGLOBIN 23.6 pg (27.0-33.0); MEAN CORPUSCULAR HGB CONC 29.3 g/dl (32.0-36.5); MEAN CORPUSCULAR VOLUME 80.6 fl (80.0-96.0); MONO # 0.7 10^3/uL (0.0-0.8); MONO % 9.6 % (2.0-8.0); NEUTROPHILS # 3.4 10^3/uL (1.5-8.5); NEUTROPHILS % 48.7 % (36.0-66.0); PLATELET COUNT, AUTOMATED 376 10^3/uL (150-450); RED BLOOD COUNT 4.49 10^6/uL (4.00-5.40); WHITE BLOOD COUNT 6.9 10^3/uL (4.0-10.0)
[2022-11-12 15:59] LABS: ALBUMIN 3.8 G/DL (3.2-5.2); BILIRUBIN,TOTAL 0.2 MG/DL (0.3-1.2); CALCIUM LEVEL 9.3 MG/DL (8.3-10.6); CHOLESTEROL RISK RATIO 2.62 (<5); CREATININE FOR GFR 1.29 MG/DL (0.55-1.30); HDL CHOLESTEROL 58.3 MG/DL (>40); LDL CHOLESTEROL 72.7 MG/DL (<100); POTASSIUM SERUM 5.2 MMOL/L (3.5-5.1); TOTAL PROTEIN 6.8 G/DL (5.7-8.2)
[2022-11-12 16:00] LABS: FERRITIN 18.6 NG/ML (7.3-270.7); TOTAL 25(OH) VITAMIN D 13.7 NG/ML (20.0-100.0)
[2022-11-12 16:08] LABS: HEMOGLOBIN A1c 6.6 % (4.0-6.0)
== END ==
LOC: M PLALAB 12:05
PROVIDERS: ATTEND Nurse Practitioner Family
DX: E11.9 Type 2 diabetes mellitus without complications (principal); I10 Essential (primary) hypertension; D50.9 Iron deficiency anemia, unspecified; E55.9 Vitamin D deficiency, unspecified; E78.5 Hyperlipidemia, unspecified

== ENCOUNTER → 2022-11-20 | Outpatient (CLI) | payer MEDICARE, MEDICAID | LOC: M WHC 12:39 | PROVIDERS: ATTEND Nurse Practitioner Family | DX: Z12.31 Encounter for screening mammogram for malignant neoplasm of breast (principal) ==

== ENCOUNTER → 2022-11-26 | Outpatient (REF) | payer MEDICARE, MEDICAID ==
[2022-11-26 10:05] LABS: INR 1.96; PROTHROMBIN TIME 22.7 SECONDS (12.5-14.5)
== END ==
PROVIDERS: ATTEND Nurse Practitioner Family
DX: E11.9 Type 2 diabetes mellitus without complications (principal); Z51.81 Encounter for therapeutic drug level monitoring

== ENCOUNTER → 2022-12-22 | Outpatient (REF) | payer MEDICARE, MEDICAID ==
[2022-12-22 10:43] LABS: INR 2.53; PROTHROMBIN TIME 27.7 SECONDS (12.5-14.5)
== END ==
PROVIDERS: ATTEND Nurse Practitioner Family
DX: I48.91 Unspecified atrial fibrillation (principal)

== ENCOUNTER → 2023-01-02 | Outpatient (REF) | payer MEDICARE, MEDICAID | LOC: M SFHCPLAZ 16:47 | PROVIDERS: ATTEND Physician Assistant | DX: L60.1 Onycholysis (principal) ==

== ENCOUNTER → 2023-01-19 | Outpatient (REF) | payer MEDICARE, MEDICAID ==
[2023-01-19 13:08] LABS: INR 2.58; PROTHROMBIN TIME 28.1 SECONDS (12.5-14.5)
== END ==
PROVIDERS: ATTEND Family Medicine
DX: M32.9 Systemic lupus erythematosus, unspecified (principal)

== ENCOUNTER → 2023-02-16 | Outpatient (REF) | payer MEDICARE, MEDICAID ==
[2023-02-16 11:55] LABS: INR 2.78; PROTHROMBIN TIME 29.8 SECONDS (12.5-14.5)
== END ==
PROVIDERS: ATTEND Nurse Practitioner Family
DX: I48.91 Unspecified atrial fibrillation (principal)

== ENCOUNTER → 2023-03-16 | Outpatient (REF) | payer MEDICARE, MEDICAID ==
[2023-03-16 10:50] LABS: INR 2.84; PROTHROMBIN TIME 30.3 SECONDS (12.5-14.5)
== END ==
PROVIDERS: ATTEND Nurse Practitioner Family
DX: Z51.81 Encounter for therapeutic drug level monitoring (principal); Z79.899 Other long term (current) drug therapy

== ENCOUNTER → 2023-04-27 | Outpatient (REF) | payer MEDICARE, MEDICAID ==
[~2023-04-27] MED LIST changes: +EUCECRE12 TOP; -HYDR200T3 PO; +HYDR200T46 PO; +JANU100T PO; +MACR100C43 PO; +MAGN400T35 PO; -MUSCCRE9 EXT; +MUSCCRE9 TOP
[2023-04-27 09:42] LABS: INR 2.75; PROTHROMBIN TIME 29.5 SECONDS (12.5-14.5)
== END ==
PROVIDERS: ATTEND Nurse Practitioner Family
DX: Z51.81 Encounter for therapeutic drug level monitoring (principal); Z79.899 Other long term (current) drug therapy

== ENCOUNTER 2023-04-28 14:03 | Emergency (ER) | payer MEDICARE, MEDICAID ==
[~2023-04-28] VITALS: Ht 167.6 cm; Wt 101.0 kg
[~2023-04-28 14:03] MED LIST changes: -EUCECRE12 TOP; -JANU100T PO; -MACR100C43 PO; -MAGN400T35 PO
[2023-04-28] MEDS ORDERED: MED REC IN PROGRESS XX SCH (14:35)
[2023-04-28] MEDS ORDERED: WARF-23 PO ×2 (14:55)
[2023-04-28] MEDS ORDERED: POTA-151 PO (14:55)
[2023-04-28] MEDS ORDERED: MACR100C43 PO (14:55)
[2023-04-28] MEDS ORDERED: EUCECRE12 TOP (14:55)
[2023-04-28] MEDS ORDERED: MAGN400T35 PO (14:55)
[2023-04-28] MEDS ORDERED: JANU100T PO (14:55)
[2023-04-28] MEDS ORDERED: HOME MED LIST COMPLETE! XX SCH (15:00)
[2023-04-28 17:25] VITALS: BP 131/65; TEMP 97.4; O2SAT 100
[2023-04-29] MEDS ORDERED: ZOLO100T PO (13:48)
== END 2023-04-28 17:26 | disposition home or self-care (01) ==
LOC: EDBD 14:03 → M ED 14:03
DX: S82.62XA Displaced fracture of lateral malleolus of left fibula, initial encounter for closed fracture (principal); M20.12 Hallux valgus (acquired), left foot; V00.838A Other accident with motorized mobility scooter, initial encounter; E78.5 Hyperlipidemia, unspecified; K76.9 Liver disease, unspecified; I10 Essential (primary) hypertension; E11.9 Type 2 diabetes mellitus without complications; J44.9 Chronic obstructive pulmonary disease, unspecified; N18.30 Chronic kidney disease, stage 3 unspecified; Z87.891 Personal history of nicotine dependence; Z88.8 Allergy status to other drugs, medicaments and biological substances; Z91.040 Latex allergy status; Z91.048 Other nonmedicinal substance allergy status; Z79.1 Long term (current) use of non-steroidal anti-inflammatories (NSAID); Z79.4 Long term (current) use of insulin; Z79.811 Long term (current) use of aromatase inhibitors; Z79.899 Other long term (current) drug therapy

== ENCOUNTER 2023-04-29 11:35 | Inpatient (IN) | payer MEDICARE, MEDICAID ==
[~2023-04-29] VITALS: Ht 170.2 cm; Wt 100.2 kg
[2023-04-29] MEDS ORDERED: PANTOPRAZOLE 40MG VIAL IV ONE (12:15)
[2023-04-29] MEDS ORDERED: SUCRALFATE 1 GM TAB PO ONE (12:15)
[2023-04-29 12:54] LABS: HEMATOCRIT 26.9 % (36.0-47.0); HEMOGLOBIN 7.9 g/dl (12.0-15.5); MEAN CORPUSCULAR HEMOGLOBIN 23.7 pg (27.0-33.0); MEAN CORPUSCULAR HGB CONC 29.4 g/dl (32.0-36.5); MEAN CORPUSCULAR VOLUME 80.8 fl (80.0-96.0); PLATELET COUNT, AUTOMATED 347 10^3/uL (150-450); RED BLOOD COUNT 3.33 10^6/uL (4.00-5.40); WHITE BLOOD COUNT 8.7 10^3/uL (4.0-10.0)
[2023-04-29 13:07] LABS: INR 2.85; PERCENT SATURATION 4.8 % (13.2-45.0); PROTHROMBIN TIME 30.4 SECONDS (12.5-14.5)
[2023-04-29 13:10] LABS: FERRITIN 17.6 NG/ML (7.3-270.7)
[2023-04-29 13:12] LABS: ALBUMIN 3.4 G/DL (3.2-5.2); BILIRUBIN,TOTAL 0.2 MG/DL (0.3-1.2); CALCIUM LEVEL 9.4 MG/DL (8.3-10.6); CREATININE FOR GFR 1.03 MG/DL (0.55-1.30); GLOMERULAR FILTRATION RATE 57.1 (>45); TOTAL PROTEIN 6.2 G/DL (5.7-8.2)
[2023-04-29] MEDS ORDERED: MED REC IN PROGRESS XX SCH (13:20)
[2023-04-29] MEDS ORDERED: MORPHINE 2 MG/ML 1ML VIAL IV ONE (13:30)
[2023-04-29] MEDS ORDERED: ZOLO100T PO (13:48)
[2023-04-29] MEDS ORDERED: HOME MED LIST COMPLETE! XX SCH (13:50)
[2023-04-29] MEDS ORDERED: ISOVUE-370 76% 100ML VIAL As Ordered ONE (14:51)
[2023-04-29] MEDS ORDERED: ACETAMINOPHEN 325 MG TAB PO PRN (17:20)
[2023-04-29] MEDS ORDERED: MIRALAX *UNIT DOSE* 17GM PACKET PO PRN (17:20)
[2023-04-29] MEDS ORDERED: TRIAMCINOLONE ACET 0.1% CREAM 80GM TOP PRN (17:20)
[2023-04-29] MEDS ORDERED: ACETAMINOPHEN TAB 650MG DOSE (2X325MG) PO PRN (17:20)
[2023-04-29] MEDS: SUCRALFATE SUSP 1GM/10ML UD PO SCH ×2 (17:30→23:06)
[2023-04-29] MEDS ORDERED: DEXTROSE 50% 50ML SYRINGE IV PRN (17:55)
[2023-04-29] MEDS ORDERED: GLUCAGON INJ 1MG VIAL SC PRN (17:55)
[2023-04-29] MEDS ORDERED: GLUCOSE 4GM CHEW TABLET PO PRN (17:55)
[2023-04-29] MEDS: INSULIN LISPRO (NovoLOG) PER UNIT SC SCH ×2 (18:00→23:08)
[2023-04-29] MEDS ORDERED: BISACODYL 5MG TAB PO ONE (19:00)
[2023-04-29] MEDS ORDERED: MOM 30ML SUSPENSION UDC PO ONE (19:00)
[2023-04-29 19:28] LABS: RSV AMPLIFICATION NEGATIVE (NEGATIVE)
[2023-04-29] MEDS ORDERED: NS 1,000 ML IV SCH (19:30)
[2023-04-29 20:00] VITALS: BP 125/73; TEMP 98.8; O2SAT 97
[2023-04-29] MEDS ORDERED: PHYTONADIONE 5 MG TAB PO ONE (21:20)
[2023-04-29 21:45] VITALS: BP 125/73; TEMP 98.8; O2SAT 97
[2023-04-29] MEDS: LEVEMIR (INSULIN DETEMIR) 1 UNITS/0.01ML SC SCH (22:44)
[2023-04-29] MEDS: ATORVASTATIN 20 MG TAB PO SCH (23:06)
[2023-04-29] MEDS: MIRALAX *UNIT DOSE* 17GM PACKET PO SCH (23:06)
[2023-04-29] MEDS: MAGNESIUM OXIDE 400MG TAB (MAG-OX) PO SCH (23:06)
[2023-04-29] MEDS: DOCUSATE SODIUM 100MG CAPSULE PO SCH (23:06)
[2023-04-29] MEDS: zolPIDEM TARTRATE 5 MG TAB PO SCH (23:06)
[2023-04-29] MEDS: FAMOTIDINE 20 MG TAB PO SCH (23:07)
[2023-04-29] MEDS: GABAPENTIN 100 MG CAP PO SCH (23:07)
[2023-04-29] MEDS: SENNA 8.6 MG TAB (SENOKOT) PO SCH (23:07)
[2023-04-29] MEDS: SERTRALINE 100 MG TAB PO SCH (23:07)
[2023-04-29] MEDS: SENOKOT S TAB PO SCH (23:07)
[2023-04-29] MEDS: D5W/0.9% SODIUM CHLORIDE 1,000 ML IV SCH (23:08)
[2023-04-29] MEDS: ACETAMINOPHEN TAB 650MG DOSE (2X325MG) PO SCH (23:09)
[2023-04-29] MEDS: traMADol 50 MG TAB PO PRN (23:10)
[2023-04-30] VITALS (12 sets, daily range): BP systolic 107–154; BP diastolic 52–83; TEMP 97.7–99.1; O2SAT 95–97
[2023-04-30] MEDS: PANTOPRAZOLE 40MG VIAL IV SCH ×2 (02:26→17:10)
[2023-04-30] MEDS: cefTRIAXone SOD 1 GM in D5W MINI-BAG PLUS 50 ML IV SCH (02:26)
[2023-04-30] MEDS: INSULIN LISPRO (NovoLOG) PER UNIT SC SCH ×4 (05:58→21:00)
[2023-04-30 06:03] LABS: HEMATOCRIT 26.6 % (36.0-47.0); HEMOGLOBIN 7.6 g/dl (12.0-15.5); MEAN CORPUSCULAR HEMOGLOBIN 23.2 pg (27.0-33.0); MEAN CORPUSCULAR HGB CONC 28.6 g/dl (32.0-36.5); MEAN CORPUSCULAR VOLUME 81.1 fl (80.0-96.0); PLATELET COUNT, AUTOMATED 335 10^3/uL (150-450); RED BLOOD COUNT 3.28 10^6/uL (4.00-5.40); WHITE BLOOD COUNT 6.7 10^3/uL (4.0-10.0)
[2023-04-30 06:19] LABS: ALBUMIN 3.2 G/DL (3.2-5.2); BILIRUBIN,TOTAL 0.2 MG/DL (0.3-1.2); CALCIUM LEVEL 9.2 MG/DL (8.3-10.6); CREATININE FOR GFR 1.05 MG/DL (0.55-1.30); GLOMERULAR FILTRATION RATE 55.8 (>45); POTASSIUM SERUM 4.4 MMOL/L (3.5-5.1); TOTAL PROTEIN 5.8 G/DL (5.7-8.2)
[2023-04-30] MEDS ORDERED: BISACODYL 5MG TAB PO ONE (07:00)
[2023-04-30] MEDS ORDERED: MOM 30ML SUSPENSION UDC PO ONE (07:00)
[2023-04-30] MEDS: SUCRALFATE SUSP 1GM/10ML UD PO SCH ×4 (07:30→22:23)
[2023-04-30] MEDS: SENNA 8.6 MG TAB (SENOKOT) PO SCH ×2 (09:00→21:00)
[2023-04-30] MEDS: MAGNESIUM OXIDE 400MG TAB (MAG-OX) PO SCH ×2 (09:00→22:22)
[2023-04-30] MEDS: DOCUSATE SODIUM 100MG CAPSULE PO SCH ×2 (09:00→21:00)
[2023-04-30] MEDS: ACETAMINOPHEN TAB 650MG DOSE (2X325MG) PO SCH ×3 (09:00→22:24)
[2023-04-30] MEDS: SENOKOT S TAB PO SCH ×2 (09:00→21:00)
[2023-04-30] MEDS: GABAPENTIN 100 MG CAP PO SCH ×3 (09:00→22:23)
[2023-04-30] MEDS ORDERED: ONDANSETRON 4MG 2ML VIAL IV PRN (09:40)
[2023-04-30] MEDS ORDERED: PROCHLORPERAZINE 10MG 2ML VIAL IV PRN (10:20)
[2023-04-30] MEDS: MIRALAX *UNIT DOSE* 17GM PACKET PO SCH ×2 (10:41→21:00)
[2023-04-30] MEDS ORDERED: propofoL 200 MG/20 ML VIAL As Ordered ONE (16:00)
[2023-04-30] MEDS ORDERED: LIDOCAINE 2% 100MG/5ML SDV (FOR ANES.) As Ordered ONE (16:01)
[2023-04-30] MEDS: FERROUS SULFATE 325MG TAB PO SCH (17:10)
[2023-04-30] MEDS: HYDROXYCHLOROQUINE 200 MG TAB PO SCH (17:10)
[2023-04-30] MEDS: POTASSIUM CHLORIDE 10MEQ SR TABLET PO SCH (17:10)
[2023-04-30] MEDS: TELMISARTAN 20 MG TAB PO SCH (17:11)
[2023-04-30] MEDS: METOPROLOL SUCC *XL* 25MG TAB (TopROL *XL*) PO SCH (17:11)
[2023-04-30] MEDS: D5W/0.9% SODIUM CHLORIDE 1,000 ML IV SCH (17:12)
[2023-04-30] MEDS: traMADol 50 MG TAB PO PRN (17:53)
[2023-04-30 21:25] LABS: HEMATOCRIT 33.2 % (36.0-47.0); MEAN CORPUSCULAR HEMOGLOBIN 25.4 pg (27.0-33.0); MEAN CORPUSCULAR HGB CONC 30.7 g/dl (32.0-36.5); MEAN CORPUSCULAR VOLUME 82.8 fl (80.0-96.0); PLATELET COUNT, AUTOMATED 299 10^3/uL (150-450); RED BLOOD COUNT 4.01 10^6/uL (4.00-5.40); WHITE BLOOD COUNT 9.2 10^3/uL (4.0-10.0)
[2023-04-30 21:30] LABS: HEMOGLOBIN 10.2 g/dl (12.0-15.5)
[2023-04-30 21:38] LABS: INR 1.56; PARTIAL THROMBOPLASTIN TIME 27.8 SECONDS (24.8-34.2)
[2023-04-30] MEDS: SERTRALINE 100 MG TAB PO SCH (22:22)
[2023-04-30] MEDS: ATORVASTATIN 20 MG TAB PO SCH (22:23)
[2023-04-30] MEDS: FAMOTIDINE 20 MG TAB PO SCH (22:23)
[2023-04-30] MEDS: zolPIDEM TARTRATE 5 MG TAB PO SCH (22:23)
[2023-04-30] MEDS: LEVEMIR (INSULIN DETEMIR) 1 UNITS/0.01ML SC SCH (22:25)
[2023-05-01] MEDS: cefTRIAXone SOD 1 GM in D5W MINI-BAG PLUS 50 ML IV SCH (01:21)
[2023-05-01] MEDS: PANTOPRAZOLE 40MG VIAL IV SCH ×2 (01:21→13:51)
[2023-05-01 05:43] VITALS: BP 141/72; TEMP 97.9; O2SAT 95
[2023-05-01 06:19] LABS: HEMATOCRIT 37.1 % (36.0-47.0); HEMOGLOBIN 11.2 g/dl (12.0-15.5); MEAN CORPUSCULAR HEMOGLOBIN 25.3 pg (27.0-33.0); MEAN CORPUSCULAR HGB CONC 30.2 g/dl (32.0-36.5); MEAN CORPUSCULAR VOLUME 83.7 fl (80.0-96.0); PLATELET COUNT, AUTOMATED 318 10^3/uL (150-450); RED BLOOD COUNT 4.43 10^6/uL (4.00-5.40); WHITE BLOOD COUNT 8.1 10^3/uL (4.0-10.0)
[2023-05-01 06:32] LABS: INR 1.33; PARTIAL THROMBOPLASTIN TIME 24.8 SECONDS (24.8-34.2); PROTHROMBIN TIME 16.7 SECONDS (12.5-14.5)
[2023-05-01 06:44] LABS: ALBUMIN 3.5 G/DL (3.2-5.2); BILIRUBIN,TOTAL 0.4 MG/DL (0.3-1.2); CALCIUM LEVEL 8.3 MG/DL (8.3-10.6); CREATININE FOR GFR 1.01 MG/DL (0.55-1.30); GLOMERULAR FILTRATION RATE 58.4 (>45); POTASSIUM SERUM 4.3 MMOL/L (3.5-5.1); TOTAL PROTEIN 6.5 G/DL (5.7-8.2)
[2023-05-01] MEDS ORDERED: PREVNAR-20 VACCINE 0.5ML SYRINGE IM.IMMUN ONE (09:00)
[2023-05-01] MEDS: INSULIN LISPRO (NovoLOG) PER UNIT SC SCH ×4 (09:31→20:36)
[2023-05-01] MEDS: SUCRALFATE SUSP 1GM/10ML UD PO SCH ×4 (09:32→21:58)
[2023-05-01] MEDS: GABAPENTIN 100 MG CAP PO SCH ×3 (09:32→22:00)
[2023-05-01] MEDS: MAGNESIUM OXIDE 400MG TAB (MAG-OX) PO SCH ×2 (09:32→22:02)
[2023-05-01] MEDS: HYDROXYCHLOROQUINE 200 MG TAB PO SCH (09:32)
[2023-05-01] MEDS: NITROFURANTOIN (MACROBID) 100 MG CAP PO SCH (09:32)
[2023-05-01] MEDS: POTASSIUM CHLORIDE 10MEQ SR TABLET PO SCH (09:32)
[2023-05-01] MEDS: METOPROLOL SUCC *XL* 25MG TAB (TopROL *XL*) PO SCH (09:33)
[2023-05-01] MEDS: TELMISARTAN 20 MG TAB PO SCH (09:33)
[2023-05-01] MEDS: ACETAMINOPHEN TAB 650MG DOSE (2X325MG) PO SCH ×3 (09:34→22:03)
[2023-05-01] MEDS: SENOKOT S TAB PO SCH ×2 (10:31→22:02)
[2023-05-01] MEDS: SENNA 8.6 MG TAB (SENOKOT) PO SCH ×2 (10:31→22:00)
[2023-05-01] MEDS: MIRALAX *UNIT DOSE* 17GM PACKET PO SCH ×2 (10:31→21:58)
[2023-05-01] MEDS: DOCUSATE SODIUM 100MG CAPSULE PO SCH ×2 (10:31→22:01)
[2023-05-01 14:00] VITALS: BP 138/78; TEMP 98.1; O2SAT 98
[2023-05-01] MEDS: CEPHALEXIN 500 MG CAP PO SCH ×2 (18:20→22:01)
[2023-05-01] MEDS: LEVEMIR (INSULIN DETEMIR) 1 UNITS/0.01ML SC SCH (21:00)
[2023-05-01 22:00] VITALS: BP 141/77; TEMP 98.4; O2SAT 95
[2023-05-01] MEDS: zolPIDEM TARTRATE 5 MG TAB PO SCH (22:01)
[2023-05-01] MEDS: SERTRALINE 100 MG TAB PO SCH (22:01)
[2023-05-01] MEDS: FAMOTIDINE 20 MG TAB PO SCH (22:02)
[2023-05-01] MEDS: ATORVASTATIN 20 MG TAB PO SCH (22:05)
[2023-05-02] MEDS: PANTOPRAZOLE 40MG VIAL IV SCH ×2 (01:51→13:01)
[2023-05-02 05:42] VITALS: BP 141/75; TEMP 98.1; O2SAT 96
[2023-05-02 06:08] LABS: HEMATOCRIT 33.5 % (36.0-47.0); HEMOGLOBIN 10.1 g/dl (12.0-15.5); MEAN CORPUSCULAR HEMOGLOBIN 25.3 pg (27.0-33.0); MEAN CORPUSCULAR HGB CONC 30.1 g/dl (32.0-36.5); MEAN CORPUSCULAR VOLUME 83.8 fl (80.0-96.0); PLATELET COUNT, AUTOMATED 280 10^3/uL (150-450); WHITE BLOOD COUNT 7.9 10^3/uL (4.0-10.0)
[2023-05-02 06:17] LABS: INR 1.14; PROTHROMBIN TIME 14.8 SECONDS (12.5-14.5)
[2023-05-02 06:18] LABS: PARTIAL THROMBOPLASTIN TIME 22.7 SECONDS (24.8-34.2)
[2023-05-02 06:22] LABS: ALBUMIN 2.9 G/DL (3.2-5.2); ALKALINE PHOSPHATASE 78 U/L (46-116); ALT/SGPT 24 U/L (7.0-40); AST/SGOT 53 U/L (<34); BILIRUBIN,TOTAL 0.3 MG/DL (0.3-1.2); BLOOD UREA NITROGEN 12 MG/DL (9-23); CARBON DIOXIDE LEVEL 27 MMOL/L (20-31); CHLORIDE LEVEL 109 MMOL/L (98-107); CREATININE FOR GFR 0.94 MG/DL (0.55-1.30); GLOMERULAR FILTRATION RATE > 60.0 (>45); GLUCOSE, FASTING 148 MG/DL (74-106); POTASSIUM SERUM 4.3 MMOL/L (3.5-5.1); SODIUM LEVEL 142 MMOL/L (136-145); TOTAL PROTEIN 5.5 G/DL (5.7-8.2)
[2023-05-02] MEDS: SUCRALFATE SUSP 1GM/10ML UD PO SCH ×4 (06:52→21:51)
[2023-05-02] MEDS: SENOKOT S TAB PO SCH ×2 (09:34→21:50)
[2023-05-02] MEDS: DOCUSATE SODIUM 100MG CAPSULE PO SCH ×2 (09:34→21:48)
[2023-05-02] MEDS: GABAPENTIN 100 MG CAP PO SCH ×3 (09:34→21:48)
[2023-05-02] MEDS: INSULIN LISPRO (NovoLOG) PER UNIT SC SCH ×4 (09:34→21:00)
[2023-05-02] MEDS: CEPHALEXIN 500 MG CAP PO SCH ×4 (09:34→21:47)
[2023-05-02] MEDS: FERROUS SULFATE 325MG TAB PO SCH (09:34)
[2023-05-02] MEDS: SENNA 8.6 MG TAB (SENOKOT) PO SCH ×2 (09:34→21:48)
[2023-05-02] MEDS: ACETAMINOPHEN TAB 650MG DOSE (2X325MG) PO SCH ×3 (09:35→21:47)
[2023-05-02] MEDS: HYDROXYCHLOROQUINE 200 MG TAB PO SCH (09:35)
[2023-05-02] MEDS: MAGNESIUM OXIDE 400MG TAB (MAG-OX) PO SCH ×2 (09:35→21:50)
[2023-05-02] MEDS: MIRALAX *UNIT DOSE* 17GM PACKET PO SCH ×2 (09:36→21:43)
[2023-05-02] MEDS: POTASSIUM CHLORIDE 10MEQ SR TABLET PO SCH (09:36)
[2023-05-02] MEDS: METOPROLOL SUCC *XL* 25MG TAB (TopROL *XL*) PO SCH (09:37)
[2023-05-02] MEDS: TELMISARTAN 20 MG TAB PO SCH (09:49)
[2023-05-02] MEDS: LEVEMIR (INSULIN DETEMIR) 1 UNITS/0.01ML SC SCH (21:46)
[2023-05-02] MEDS: SERTRALINE 100 MG TAB PO SCH (21:50)
[2023-05-02] MEDS: ATORVASTATIN 20 MG TAB PO SCH (21:50)
[2023-05-02] MEDS: FAMOTIDINE 20 MG TAB PO SCH (21:50)
[2023-05-02] MEDS: zolPIDEM TARTRATE 5 MG TAB PO SCH (21:51)
[2023-05-03] MEDS: PANTOPRAZOLE 40MG VIAL IV SCH (01:15)
[2023-05-03 05:09] VITALS: BP 139/74; TEMP 97.9; O2SAT 96
[2023-05-03 05:59] LABS: HEMATOCRIT 36.5 % (36.0-47.0); HEMOGLOBIN 10.9 g/dl (12.0-15.5); MEAN CORPUSCULAR HGB CONC 29.9 g/dl (32.0-36.5); MEAN CORPUSCULAR VOLUME 83.7 fl (80.0-96.0); PLATELET COUNT, AUTOMATED 341 10^3/uL (150-450); RED BLOOD COUNT 4.36 10^6/uL (4.00-5.40)
[2023-05-03 06:11] LABS: INR 0.96
[2023-05-03 06:23] LABS: ALBUMIN 3.1 G/DL (3.2-5.2); ALKALINE PHOSPHATASE 82 U/L (46-116); ALT/SGPT 27 U/L (7.0-40); AST/SGOT 51 U/L (<34); BILIRUBIN,TOTAL 0.3 MG/DL (0.3-1.2); BLOOD UREA NITROGEN 12 MG/DL (9-23); CALCIUM LEVEL 9.3 MG/DL (8.3-10.6); CARBON DIOXIDE LEVEL 26 MMOL/L (20-31); CHLORIDE LEVEL 107 MMOL/L (98-107); CREATININE FOR GFR 0.89 MG/DL (0.55-1.30); GLOMERULAR FILTRATION RATE > 60.0 (>45); GLUCOSE, FASTING 160 MG/DL (74-106); POTASSIUM SERUM 4.5 MMOL/L (3.5-5.1); SODIUM LEVEL 141 MMOL/L (136-145); TOTAL PROTEIN 5.9 G/DL (5.7-8.2)
[2023-05-03] MEDS: SUCRALFATE SUSP 1GM/10ML UD PO SCH ×4 (07:30→21:46)
[2023-05-03] MEDS: INSULIN LISPRO (NovoLOG) PER UNIT SC SCH ×4 (10:29→21:00)
[2023-05-03] MEDS: GABAPENTIN 100 MG CAP PO SCH ×3 (10:29→21:48)
[2023-05-03] MEDS: MIRALAX *UNIT DOSE* 17GM PACKET PO SCH (10:29)
[2023-05-03] MEDS: CEPHALEXIN 500 MG CAP PO SCH ×4 (10:29→21:47)
[2023-05-03] MEDS: SENOKOT S TAB PO SCH ×2 (10:30→21:48)
[2023-05-03] MEDS: SENNA 8.6 MG TAB (SENOKOT) PO SCH ×2 (10:30→21:47)
[2023-05-03] MEDS: MAGNESIUM OXIDE 400MG TAB (MAG-OX) PO SCH ×2 (10:30→21:48)
[2023-05-03] MEDS: POTASSIUM CHLORIDE 10MEQ SR TABLET PO SCH (10:30)
[2023-05-03] MEDS: HYDROXYCHLOROQUINE 200 MG TAB PO SCH (10:30)
[2023-05-03] MEDS: DOCUSATE SODIUM 100MG CAPSULE PO SCH ×2 (10:30→21:48)
[2023-05-03] MEDS: METOPROLOL SUCC *XL* 25MG TAB (TopROL *XL*) PO SCH (10:31)
[2023-05-03] MEDS: TELMISARTAN 20 MG TAB PO SCH (10:31)
[2023-05-03] MEDS: ACETAMINOPHEN TAB 650MG DOSE (2X325MG) PO SCH ×3 (10:31→21:47)
[2023-05-03] MEDS: PANTOPRAZOLE 40MG TAB (PROTONIX) PO SCH ×2 (13:18→21:48)
[2023-05-03] MEDS ORDERED: GOLYTELY SOLN 4000 ML BTL PO ONE ×2 (16:45→17:00)
[2023-05-03] MEDS: LEVEMIR (INSULIN DETEMIR) 1 UNITS/0.01ML SC SCH (21:00)
[2023-05-03] MEDS: ATORVASTATIN 20 MG TAB PO SCH (21:47)
[2023-05-03] MEDS: zolPIDEM TARTRATE 5 MG TAB PO SCH (21:47)
[2023-05-03] MEDS: SERTRALINE 100 MG TAB PO SCH (21:48)
[2023-05-03] MEDS: FAMOTIDINE 20 MG TAB PO SCH (21:48)
[2023-05-04] MEDS ORDERED: GOLYTELY SOLN 4000 ML BTL PO ONE ×2 (06:00→09:00)
[2023-05-04 06:31] LABS: HEMATOCRIT 36.5 % (36.0-47.0); HEMOGLOBIN 11.1 g/dl (12.0-15.5); MEAN CORPUSCULAR HEMOGLOBIN 25.1 pg (27.0-33.0); MEAN CORPUSCULAR HGB CONC 30.4 g/dl (32.0-36.5); MEAN CORPUSCULAR VOLUME 82.4 fl (80.0-96.0); PLATELET COUNT, AUTOMATED 328 10^3/uL (150-450); RED BLOOD COUNT 4.43 10^6/uL (4.00-5.40); WHITE BLOOD COUNT 8.9 10^3/uL (4.0-10.0)
[2023-05-04 06:41] VITALS: BP 137/73; TEMP 98.5; O2SAT 98
[2023-05-04 06:42] LABS: ALBUMIN 3.2 G/DL (3.2-5.2); ALKALINE PHOSPHATASE 83 U/L (46-116); ALT/SGPT 28 U/L (7.0-40); AST/SGOT 43 U/L (<34); BILIRUBIN,TOTAL 0.4 MG/DL (0.3-1.2); BLOOD UREA NITROGEN 11 MG/DL (9-23); CALCIUM LEVEL 9.1 MG/DL (8.3-10.6); CARBON DIOXIDE LEVEL 28 MMOL/L (20-31); CHLORIDE LEVEL 105 MMOL/L (98-107); CREATININE FOR GFR 0.88 MG/DL (0.55-1.30); GLOMERULAR FILTRATION RATE > 60.0 (>45); GLUCOSE, FASTING 138 MG/DL (74-106); POTASSIUM SERUM 4.3 MMOL/L (3.5-5.1); SODIUM LEVEL 140 MMOL/L (136-145)
[2023-05-04 06:43] LABS: INR 0.94; PARTIAL THROMBOPLASTIN TIME 22.8 SECONDS (24.8-34.2); PROTHROMBIN TIME 12.8 SECONDS (12.5-14.5)
[2023-05-04] MEDS: INSULIN LISPRO (NovoLOG) PER UNIT SC SCH ×4 (09:45→20:27)
[2023-05-04] MEDS: GABAPENTIN 100 MG CAP PO SCH ×3 (09:46→21:14)
[2023-05-04] MEDS: SUCRALFATE SUSP 1GM/10ML UD PO SCH ×4 (09:46→21:13)
[2023-05-04] MEDS: SENOKOT S TAB PO SCH ×2 (09:46→21:14)
[2023-05-04] MEDS: FERROUS SULFATE 325MG TAB PO SCH (09:46)
[2023-05-04] MEDS: CEPHALEXIN 500 MG CAP PO SCH ×4 (09:46→21:14)
[2023-05-04] MEDS: SENNA 8.6 MG TAB (SENOKOT) PO SCH ×2 (09:47→21:14)
[2023-05-04] MEDS: POTASSIUM CHLORIDE 10MEQ SR TABLET PO SCH (09:47)
[2023-05-04] MEDS: PANTOPRAZOLE 40MG TAB (PROTONIX) PO SCH ×2 (09:47→21:14)
[2023-05-04] MEDS: NITROFURANTOIN (MACROBID) 100 MG CAP PO SCH (09:47)
[2023-05-04] MEDS: ACETAMINOPHEN TAB 650MG DOSE (2X325MG) PO SCH ×3 (09:47→21:15)
[2023-05-04] MEDS: DOCUSATE SODIUM 100MG CAPSULE PO SCH ×2 (09:47→21:14)
[2023-05-04] MEDS: MAGNESIUM OXIDE 400MG TAB (MAG-OX) PO SCH ×2 (09:47→21:14)
[2023-05-04] MEDS: TELMISARTAN 20 MG TAB PO SCH (09:48)
[2023-05-04] MEDS: HYDROXYCHLOROQUINE 200 MG TAB PO SCH (09:48)
[2023-05-04] MEDS: METOPROLOL SUCC *XL* 25MG TAB (TopROL *XL*) PO SCH (09:48)
[2023-05-04] MEDS ORDERED: MAGNESIUM CITRATE 300ML BTL PO ONE (18:00)
[2023-05-04] MEDS: LEVEMIR (INSULIN DETEMIR) 1 UNITS/0.01ML SC SCH (20:28)
[2023-05-04] MEDS: ATORVASTATIN 20 MG TAB PO SCH (21:14)
[2023-05-04] MEDS: zolPIDEM TARTRATE 5 MG TAB PO SCH (21:14)
[2023-05-04] MEDS: FAMOTIDINE 20 MG TAB PO SCH (21:14)
[2023-05-04] MEDS: SERTRALINE 100 MG TAB PO SCH (21:14)
[2023-05-05 05:35] LABS: HEMATOCRIT 39.4 % (36.0-47.0); HEMOGLOBIN 11.8 g/dl (12.0-15.5); MEAN CORPUSCULAR HEMOGLOBIN 25.1 pg (27.0-33.0); MEAN CORPUSCULAR HGB CONC 29.9 g/dl (32.0-36.5); MEAN CORPUSCULAR VOLUME 83.7 fl (80.0-96.0); PLATELET COUNT, AUTOMATED 317 10^3/uL (150-450); RED BLOOD COUNT 4.71 10^6/uL (4.00-5.40); WHITE BLOOD COUNT 8.7 10^3/uL (4.0-10.0)
[2023-05-05 05:48] LABS: INR 0.93; PARTIAL THROMBOPLASTIN TIME 22.9 SECONDS (24.8-34.2); PROTHROMBIN TIME 12.7 SECONDS (12.5-14.5)
[2023-05-05 05:59] LABS: ALBUMIN 3.4 G/DL (3.2-5.2); ALKALINE PHOSPHATASE 88 U/L (46-116); ALT/SGPT 29 U/L (7.0-40); AST/SGOT 38 U/L (<34); BILIRUBIN,TOTAL 0.4 MG/DL (0.3-1.2); BLOOD UREA NITROGEN 12 MG/DL (9-23); CALCIUM LEVEL 9.9 MG/DL (8.3-10.6); CARBON DIOXIDE LEVEL 26 MMOL/L (20-31); CHLORIDE LEVEL 107 MMOL/L (98-107); CREATININE FOR GFR 0.92 MG/DL (0.55-1.30); GLOMERULAR FILTRATION RATE > 60.0 (>45); GLUCOSE, FASTING 104 MG/DL (74-106); POTASSIUM SERUM 4.5 MMOL/L (3.5-5.1); SODIUM LEVEL 140 MMOL/L (136-145); TOTAL PROTEIN 6.4 G/DL (5.7-8.2)
[2023-05-05 06:00] VITALS: BP 130/72; TEMP 97.7; O2SAT 98
[2023-05-05] MEDS: INSULIN LISPRO (NovoLOG) PER UNIT SC SCH ×4 (07:30→21:00)
[2023-05-05] MEDS: SUCRALFATE SUSP 1GM/10ML UD PO SCH ×4 (07:30→21:33)
[2023-05-05] MEDS ORDERED: propofoL 200 MG/20 ML VIAL As Ordered ONE (07:48)
[2023-05-05] MEDS ORDERED: LIDOCAINE 2% 100MG/5ML SDV (FOR ANES.) As Ordered ONE (07:48)
[2023-05-05] MEDS ORDERED: ONDANSETRON 4MG 2ML VIAL IV PRN (08:45)
[2023-05-05] MEDS ORDERED: LR 1,000 ML IV SCH (08:45)
[2023-05-05] MEDS: SENNA 8.6 MG TAB (SENOKOT) PO SCH ×2 (09:00→21:00)
[2023-05-05] MEDS: DOCUSATE SODIUM 100MG CAPSULE PO SCH ×2 (09:00→21:00)
[2023-05-05 09:40] VITALS: BP 137/69; TEMP 98.1; O2SAT 100
[2023-05-05] MEDS: PANTOPRAZOLE 40MG TAB (PROTONIX) PO SCH ×2 (09:51→21:33)
[2023-05-05] MEDS: METOPROLOL SUCC *XL* 25MG TAB (TopROL *XL*) PO SCH (09:51)
[2023-05-05] MEDS: TELMISARTAN 20 MG TAB PO SCH (09:51)
[2023-05-05] MEDS: HYDROXYCHLOROQUINE 200 MG TAB PO SCH (09:51)
[2023-05-05] MEDS: SENOKOT S TAB PO SCH ×2 (09:51→21:00)
[2023-05-05] MEDS: CEPHALEXIN 500 MG CAP PO SCH ×4 (09:51→21:33)
[2023-05-05] MEDS: GABAPENTIN 100 MG CAP PO SCH ×3 (09:52→21:33)
[2023-05-05] MEDS: ACETAMINOPHEN TAB 650MG DOSE (2X325MG) PO SCH ×3 (09:52→21:34)
[2023-05-05] MEDS: MAGNESIUM OXIDE 400MG TAB (MAG-OX) PO SCH ×2 (09:52→21:33)
[2023-05-05] MEDS: POTASSIUM CHLORIDE 10MEQ SR TABLET PO SCH (09:52)
[2023-05-05 10:50] VITALS: BP 130/60; TEMP 98.1; O2SAT 97
[2023-05-05] MEDS: ASPIRIN 81MG ENTERIC TABLET PO SCH (17:41)
[2023-05-05] MEDS: traMADol 50 MG TAB PO PRN (17:41)
[2023-05-05] MEDS: LEVEMIR (INSULIN DETEMIR) 1 UNITS/0.01ML SC SCH (21:00)
[2023-05-05] MEDS: FAMOTIDINE 20 MG TAB PO SCH (21:33)
[2023-05-05] MEDS: SERTRALINE 100 MG TAB PO SCH (21:33)
[2023-05-05] MEDS: zolPIDEM TARTRATE 5 MG TAB PO SCH (21:33)
[2023-05-05] MEDS: ATORVASTATIN 20 MG TAB PO SCH (21:33)
[2023-05-06 06:08] VITALS: BP 129/59; TEMP 97.3; O2SAT 98
[2023-05-06] MEDS: SUCRALFATE SUSP 1GM/10ML UD PO SCH (08:48)
[2023-05-06] MEDS: FERROUS SULFATE 325MG TAB PO SCH (08:49)
[2023-05-06] MEDS: SENNA 8.6 MG TAB (SENOKOT) PO SCH (08:49)
[2023-05-06] MEDS: NITROFURANTOIN (MACROBID) 100 MG CAP PO SCH (08:49)
[2023-05-06] MEDS: PANTOPRAZOLE 40MG TAB (PROTONIX) PO SCH (08:49)
[2023-05-06] MEDS: GABAPENTIN 100 MG CAP PO SCH (08:49)
[2023-05-06] MEDS: INSULIN LISPRO (NovoLOG) PER UNIT SC SCH (08:49)
[2023-05-06] MEDS: SENOKOT S TAB PO SCH (08:49)
[2023-05-06] MEDS: DOCUSATE SODIUM 100MG CAPSULE PO SCH (08:50)
[2023-05-06] MEDS: MAGNESIUM OXIDE 400MG TAB (MAG-OX) PO SCH (08:50)
[2023-05-06] MEDS: ACETAMINOPHEN TAB 650MG DOSE (2X325MG) PO SCH (08:51)
[2023-05-06] MEDS: POTASSIUM CHLORIDE 10MEQ SR TABLET PO SCH (08:51)
[2023-05-06 08:52] VITALS: BP 135/83
[2023-05-06] MEDS: TELMISARTAN 20 MG TAB PO SCH (08:52)
[2023-05-06] MEDS: HYDROXYCHLOROQUINE 200 MG TAB PO SCH (08:52)
[2023-05-06] MEDS: METOPROLOL SUCC *XL* 25MG TAB (TopROL *XL*) PO SCH (08:52)
[2023-05-06] MEDS: ASPIRIN 81MG ENTERIC TABLET PO SCH (08:52)
== END 2023-05-06 12:30 | DRG 378 ==
LOC: M ED 11:35 → EDBD 11:35 → M ED INP 17:16 → M MSPAV 21:45
PROVIDERS: ADMIT Internal Medicine; ATTEND Internal Medicine
PROC: 30233N1 Transfusion of Nonautologous Red Blood Cells into Peripheral Vein, Percutaneous Approach (ICD-10-PCS; 2023-04-30)
PROC: 0DJ08ZZ Inspection of Upper Intestinal Tract, Via Natural or Artificial Opening Endoscopic (ICD-10-PCS; principal; 2023-04-30 15:30)
PROC: 0DBM8ZX Excision of Descending Colon, Via Natural or Artificial Opening Endoscopic, Diagnostic (ICD-10-PCS; 2023-05-05)
DX: K92.1 Melena (principal); N39.0 Urinary tract infection, site not specified; D50.9 Iron deficiency anemia, unspecified; E11.42 Type 2 diabetes mellitus with diabetic polyneuropathy; M32.9 Systemic lupus erythematosus, unspecified; I10 Essential (primary) hypertension; K21.9 Gastro-esophageal reflux disease without esophagitis; E87.6 Hypokalemia; I48.91 Unspecified atrial fibrillation; F32.A Depression, unspecified; F41.9 Anxiety disorder, unspecified; Z91.040 Latex allergy status; Z79.01 Long term (current) use of anticoagulants; Z88.8 Allergy status to other drugs, medicaments and biological substances; Z79.899 Other long term (current) drug therapy; Z79.82 Long term (current) use of aspirin; Z79.4 Long term (current) use of insulin; Z87.891 Personal history of nicotine dependence; K63.5 Polyp of colon

== ENCOUNTER → 2023-04-29 | Outpatient (REF) | payer MEDICAID, MEDICARE ==
[~2023-04-29] MED LIST changes: +EUCECRE12 TOP; +JANU100T PO; +MACR100C43 PO; +MAGN400T35 PO
[2023-04-29 08:13] LABS: BASO % 0.4 % (0.0-1.0); EOS # 0.2 10^3/uL (0.0-0.5); EOS % 2.2 % (0.0-3.0); HEMOGLOBIN 7.3 g/dl (12.0-15.5); LYMPH # 2.9 10^3/uL (1.5-5.0); LYMPH % 37.8 % (24.0-44.0); MEAN CORPUSCULAR HEMOGLOBIN 23.5 pg (27.0-33.0); MEAN CORPUSCULAR HGB CONC 29.2 g/dl (32.0-36.5); MEAN CORPUSCULAR VOLUME 80.4 fl (80.0-96.0); MONO # 0.8 10^3/uL (0.0-0.8); MONO % 10.3 % (2.0-8.0); NEUTROPHILS # 3.7 10^3/uL (1.5-8.5); NEUTROPHILS % 48.9 % (36.0-66.0); PLATELET COUNT, AUTOMATED 326 10^3/uL (150-450); RED BLOOD COUNT 3.11 10^6/uL (4.00-5.40); WHITE BLOOD COUNT 7.6 10^3/uL (4.0-10.0)
[2023-04-29 08:48] LABS: HEMOGLOBIN A1c 5.6 % (4.0-6.0)
[2023-04-29 08:50] LABS: IRON (FE) 21 UG/DL (50-170); PERCENT SATURATION 6.4 % (13.2-45.0); TOTAL IRON BINDING CAPACITY 328 UG/DL (250-425)
[2023-04-29 08:51] LABS: ALBUMIN 3.1 G/DL (3.2-5.2); ALKALINE PHOSPHATASE 78 U/L (46-116); ALT/SGPT 25 U/L (7.0-40); AST/SGOT 21 U/L (<34); BILIRUBIN,TOTAL < 0.2 MG/DL (0.3-1.2); BLOOD UREA NITROGEN 16 MG/DL (9-23); CALCIUM LEVEL 8.3 MG/DL (8.3-10.6); CARBON DIOXIDE LEVEL 27 MMOL/L (20-31); CHLORIDE LEVEL 109 MMOL/L (98-107); CHOLESTEROL LEVEL 127 MG/DL (<200); CHOLESTEROL RISK RATIO 2.31 (<5); CREATININE FOR GFR 1.09 MG/DL (0.55-1.30); GLOMERULAR FILTRATION RATE 53.5 (>45); GLUCOSE, FASTING 206 MG/DL (74-106); HDL CHOLESTEROL 54.8 MG/DL (>40); LDL CHOLESTEROL 51.4 MG/DL (<100); NON-HDL-C 72.2 MG/DL; POTASSIUM SERUM 4.2 MMOL/L (3.5-5.1); SODIUM LEVEL 143 MMOL/L (136-145); TOTAL PROTEIN 5.4 G/DL (5.7-8.2); TRIGLYCERIDES LEVEL 104 MG/DL (<150)
[2023-04-29 08:52] LABS: TOTAL 25(OH) VITAMIN D 8.8 NG/ML (20.0-100.0)
== END ==
PROVIDERS: ATTEND Nurse Practitioner Family
DX: E11.9 Type 2 diabetes mellitus without complications (principal); I10 Essential (primary) hypertension; E78.5 Hyperlipidemia, unspecified; D50.9 Iron deficiency anemia, unspecified; E55.9 Vitamin D deficiency, unspecified

== ENCOUNTER → 2023-05-08 | Outpatient (REF) ==
[2023-05-08 07:54] LABS: INR 0.87
== END ==
PROVIDERS: ATTEND Internal Medicine
DX: I48.91 Unspecified atrial fibrillation (principal); E11.9 Type 2 diabetes mellitus without complications

== ENCOUNTER → 2023-05-27 | Outpatient (REF) ==
[2023-05-27 08:36] LABS: HEMATOCRIT 34.3 % (36.0-47.0); HEMOGLOBIN 10.2 g/dl (12.0-15.5); MEAN CORPUSCULAR HGB CONC 29.7 g/dl (32.0-36.5); MEAN CORPUSCULAR VOLUME 80.7 fl (80.0-96.0); PLATELET COUNT, AUTOMATED 291 10^3/uL (150-450); RED BLOOD COUNT 4.25 10^6/uL (4.00-5.40); WHITE BLOOD COUNT 6.5 10^3/uL (4.0-10.0)
[2023-05-27 08:57] LABS: CALCIUM LEVEL 8.4 MG/DL (8.3-10.6); CREATININE FOR GFR 0.99 MG/DL (0.55-1.30); GLOMERULAR FILTRATION RATE 59.6 (>45); POTASSIUM SERUM 4.1 MMOL/L (3.5-5.1)
== END ==
PROVIDERS: ATTEND Physician Assistant
DX: K92.2 Gastrointestinal hemorrhage, unspecified (principal)

== ENCOUNTER → 2023-06-02 | Outpatient (REF) | PROVIDERS: ATTEND Physician Assistant | DX: I48.91 Unspecified atrial fibrillation (principal); Z53.8 Procedure and treatment not carried out for other reasons ==

== ENCOUNTER → 2023-06-02 | Outpatient (REF) | PROVIDERS: ATTEND Physician Assistant | DX: I48.91 Unspecified atrial fibrillation (principal); Z53.8 Procedure and treatment not carried out for other reasons ==

== ENCOUNTER → 2023-06-02 | Outpatient (REF) ==
[2023-06-02 11:25] LABS: INR 1.31; PROTHROMBIN TIME 16.5 SECONDS (12.5-14.5)
== END ==
PROVIDERS: ATTEND Physician Assistant
DX: I48.91 Unspecified atrial fibrillation (principal)

== ENCOUNTER → 2023-06-02 | Outpatient (REF) | PROVIDERS: ATTEND Physician Assistant | DX: I48.91 Unspecified atrial fibrillation (principal); Z53.8 Procedure and treatment not carried out for other reasons ==

== ENCOUNTER → 2023-06-02 | Outpatient (REF) | PROVIDERS: ATTEND Physician Assistant | DX: I48.91 Unspecified atrial fibrillation (principal); Z53.8 Procedure and treatment not carried out for other reasons ==

== ENCOUNTER → 2023-06-02 | Outpatient (REF) | PROVIDERS: ATTEND Physician Assistant | DX: I48.91 Unspecified atrial fibrillation (principal); Z53.8 Procedure and treatment not carried out for other reasons ==

== ENCOUNTER → 2023-06-05 | Outpatient (REF) | payer MEDICARE, MEDICAID ==
[2023-06-05 08:28] LABS: INR 2.02; PROTHROMBIN TIME 23.2 SECONDS (12.5-14.5)
== END ==
PROVIDERS: ATTEND Nurse Practitioner Family
DX: Z51.81 Encounter for therapeutic drug level monitoring (principal); I48.91 Unspecified atrial fibrillation

== ENCOUNTER → 2023-06-08 | Outpatient (REF) | payer MEDICARE, MEDICAID ==
[2023-06-08 08:29] LABS: INR 2.07; PROTHROMBIN TIME 23.7 SECONDS (12.5-14.5)
== END ==
PROVIDERS: ATTEND Nurse Practitioner Family
DX: Z51.81 Encounter for therapeutic drug level monitoring (principal); Z79.899 Other long term (current) drug therapy

== ENCOUNTER → 2023-06-22 | Outpatient (CLI) | payer MEDICARE, MEDICAID | LOC: M SOG 14:16 | PROVIDERS: ATTEND Physician Assistant | DX: S82.62XS Displaced fracture of lateral malleolus of left fibula, sequela (principal) ==

== ENCOUNTER → 2023-06-24 | Outpatient (REF) | payer MEDICARE, MEDICAID ==
[2023-06-24 08:43] LABS: INR 2.64; PROTHROMBIN TIME 27.5 SECONDS (12.5-14.5)
== END ==
PROVIDERS: ATTEND Nurse Practitioner Family
DX: Z51.81 Encounter for therapeutic drug level monitoring (principal); Z79.899 Other long term (current) drug therapy

== ENCOUNTER → 2023-07-23 | Outpatient (CLI) | payer MEDICARE, MEDICAID | LOC: M SOG 08:56 | PROVIDERS: ATTEND Physician Assistant | DX: S93.492A Sprain of other ligament of left ankle, initial encounter (principal); M77.32 Calcaneal spur, left foot; Y93.9 Activity, unspecified; Y92.9 Unspecified place or not applicable ==

== ENCOUNTER → 2023-08-05 | Outpatient (REF) | payer MEDICARE, MEDICAID ==
[~2023-08-05] MED LIST changes: +GLIP5TAB17 PO; -GLIP5TAB8 PO
[2023-08-05 10:53] LABS: INR 2.24; PROTHROMBIN TIME 24.2 SECONDS (12.5-14.5)
== END ==
PROVIDERS: ATTEND Nurse Practitioner Family
DX: Z51.81 Encounter for therapeutic drug level monitoring (principal); Z79.01 Long term (current) use of anticoagulants

== ENCOUNTER → 2023-08-11 | Outpatient (CLI) | payer MEDICARE, MEDICAID ==
[~2023-08-11] MED LIST changes: -GLIP5TAB17 PO; +GLIP5TAB8 PO
== END ==
LOC: M PLAIMG 13:22
PROVIDERS: ATTEND Internal Medicine Gastroenterology
DX: T18.3XXA Foreign body in small intestine, initial encounter (principal); T18.4XXA Foreign body in colon, initial encounter; Y93.9 Activity, unspecified; Y92.9 Unspecified place or not applicable; K59.00 Constipation, unspecified

== ENCOUNTER → 2023-10-12 | Outpatient (CLI) | payer MEDICARE, MEDICAID ==
[~2023-10-12] MED LIST changes: +GLIP5TAB17 PO; -GLIP5TAB8 PO
== END ==
LOC: M WHC 09:23
PROVIDERS: ATTEND Nurse Practitioner Family
DX: K76.0 Fatty (change of) liver, not elsewhere classified (principal)

== ENCOUNTER → 2023-10-28 | Outpatient (REF) | payer MEDICARE, MEDICAID ==
[2023-10-28 10:04] LABS: INR 2.57; PROTHROMBIN TIME 26.6 SECONDS (12.5-14.5)
== END ==
PROVIDERS: ATTEND Nurse Practitioner Family
DX: Z51.81 Encounter for therapeutic drug level monitoring (principal)

== ENCOUNTER → 2023-12-10 | Outpatient (CLI) | payer MEDICARE, MEDICAID ==
[~2023-12-10] MED LIST changes: +NATU1TAB5 PO
== END ==
LOC: M RAD 09:38
PROVIDERS: ATTEND Nurse Practitioner Family
DX: S09.90XA Unspecified injury of head, initial encounter (principal); G44.301 Post-traumatic headache, unspecified, intractable; Y93.9 Activity, unspecified; Y92.9 Unspecified place or not applicable

== ENCOUNTER → 2023-12-14 | Outpatient (REF) | payer MEDICARE, MEDICAID ==
[~2023-12-14] MED LIST changes: -ASPI-161 PO; +ASPI-615 PO; -MIRA1POW3 PO; +MIRA33506 PO
[2023-12-14 11:48] LABS: INR 2.42; PROTHROMBIN TIME 25.4 SECONDS (12.5-14.5)
== END ==
PROVIDERS: ATTEND Nurse Practitioner Family
DX: Z79.01 Long term (current) use of anticoagulants (principal)

== ENCOUNTER 2023-12-22 06:25 | Day surgery (SDC) | payer MEDICARE, MEDICAID ==
[~2023-12-22] VITALS: Ht 167.6 cm; Wt 101.2 kg
[2023-12-22] MEDS ORDERED: LIDOCAINE 2% 100MG/5ML SDV (FOR ANES.) As Ordered ONE (06:57)
[2023-12-22] MEDS ORDERED: propofoL 200 MG/20 ML VIAL As Ordered ONE (06:57)
[2023-12-22] MEDS: NS 1,000 ML IV ONE (07:11)
[2023-12-22] MEDS ORDERED: GLUCAGON INJ 1MG VIAL As Ordered ONE (07:38)
[2023-12-22] MEDS ORDERED: fentaNYL 100 MCG/2 ML INJECTION As Ordered ONE (07:48)
[2023-12-22] MEDS ORDERED: PHENYLephrine 500MCG 5ML (100MCG/ML) SYRINGE As Ordered ONE (08:07)
[2023-12-22 08:10] VITALS: TEMP 96.2
[2023-12-22 08:40] VITALS: BP 122/58; O2SAT 96
== END 2023-12-22 13:03 | disposition home or self-care (01) ==
LOC: M OPP 06:25
PROVIDERS: ATTEND Internal Medicine Gastroenterology
DX: D12.3 Benign neoplasm of transverse colon (principal); D12.4 Benign neoplasm of descending colon; K57.30 Diverticulosis of large intestine without perforation or abscess without bleeding; K63.89 Other specified diseases of intestine; K64.8 Other hemorrhoids; D50.9 Iron deficiency anemia, unspecified; R93.3 Abnormal findings on diagnostic imaging of other parts of digestive tract; I48.91 Unspecified atrial fibrillation; E11.9 Type 2 diabetes mellitus without complications; Z86.73 Personal history of transient ischemic attack (TIA), and cerebral infarction without residual deficits; Z79.01 Long term (current) use of anticoagulants; Z79.02 Long term (current) use of antithrombotics/antiplatelets; Z79.4 Long term (current) use of insulin; Z79.82 Long term (current) use of aspirin; Z79.891 Long term (current) use of opiate analgesic; Z79.899 Other long term (current) drug therapy; Z88.8 Allergy status to other drugs, medicaments and biological substances; Z91.040 Latex allergy status; Z91.048 Other nonmedicinal substance allergy status
CPT/HCPCS: 45385; 88305; J1610; J2371; J3010

== ENCOUNTER → 2024-01-18 | Outpatient (REF) | payer MEDICARE, MEDICAID ==
[~2024-01-18] MED LIST changes: -MELA1TAB9 PO; +MELA5TAB58 PO
[2024-01-18 12:24] LABS: BASO % 0.5 % (0.0-1.0); EOS # 0.1 10^3/uL (0.0-0.5); EOS % 2.1 % (0.0-3.0); HEMOGLOBIN 12.2 g/dl (12.0-15.5); LYMPH # 2.3 10^3/uL (1.5-5.0); LYMPH % 37.2 % (24.0-44.0); MEAN CORPUSCULAR HEMOGLOBIN 25.7 pg (27.0-33.0); MEAN CORPUSCULAR HGB CONC 31.3 g/dl (32.0-36.5); MEAN CORPUSCULAR VOLUME 82.1 fl (80.0-96.0); MONO # 0.6 10^3/uL (0.0-0.8); MONO % 8.9 % (2.0-8.0); NEUTROPHILS # 3.1 10^3/uL (1.5-8.5); NEUTROPHILS % 51.1 % (36.0-66.0); PLATELET COUNT, AUTOMATED 264 10^3/uL (150-450); RED BLOOD COUNT 4.75 10^6/uL (4.00-5.40); WHITE BLOOD COUNT 6.2 10^3/uL (4.0-10.0)
[2024-01-18 12:56] LABS: FERRITIN 25.9 NG/ML (7.3-270.7); TOTAL 25(OH) VITAMIN D 60.2 NG/ML (20.0-100.0)
[2024-01-18 13:00] LABS: ALBUMIN 3.3 G/DL (3.2-5.2); BILIRUBIN,TOTAL 0.3 MG/DL (0.3-1.2); CALCIUM LEVEL 9.5 MG/DL (8.3-10.6); CHOLESTEROL RISK RATIO 2.9 (<5); CREATININE FOR GFR 1.01 MG/DL (0.55-1.30); GLOMERULAR FILTRATION RATE 58.2 (>45); HDL CHOLESTEROL 47.1 MG/DL (>40); LDL CHOLESTEROL 69.9 MG/DL (<100); NON-HDL-C 89.9 MG/DL; PERCENT SATURATION 20.5 % (13.2-45.0); POTASSIUM SERUM 4.3 MMOL/L (3.5-5.1); TOTAL PROTEIN 6.1 G/DL (5.7-8.2)
[2024-01-18 13:01] LABS: HEMOGLOBIN A1c 6.6 % (4.0-6.0)
== END ==
PROVIDERS: ATTEND Nurse Practitioner Family
DX: E78.5 Hyperlipidemia, unspecified (principal); D50.9 Iron deficiency anemia, unspecified; E11.9 Type 2 diabetes mellitus without complications; I10 Essential (primary) hypertension; E55.9 Vitamin D deficiency, unspecified; E53.8 Deficiency of other specified B group vitamins

== ENCOUNTER → 2024-01-25 | Outpatient (REF) | payer MEDICARE, MEDICAID ==
[2024-01-25 11:07] LABS: INR 3.06; PROTHROMBIN TIME 30.5 SECONDS (12.5-14.5)
== END ==
PROVIDERS: ATTEND Nurse Practitioner Family
DX: Z51.81 Encounter for therapeutic drug level monitoring (principal)

== ENCOUNTER → 2024-03-07 | Outpatient (REF) | payer MEDICARE, MEDICAID ==
[2024-03-07 11:41] LABS: INR 3.25; PROTHROMBIN TIME 31.9 SECONDS (12.5-14.5)
== END ==
PROVIDERS: ATTEND Nurse Practitioner Family
DX: Z51.81 Encounter for therapeutic drug level monitoring (principal); Z79.899 Other long term (current) drug therapy

== ENCOUNTER 2024-03-29 14:34 | Emergency (ER) | payer MEDICARE, MEDICAID ==
[~2024-03-29] VITALS: Ht 167.6 cm; Wt 96.4 kg
[2024-03-29 17:19] LABS: BASO % 0.4 % (0.0-1.0); EOS # 0.1 10^3/uL (0.0-0.5); EOS % 1.7 % (0.0-3.0); HEMATOCRIT 41.7 % (36.0-47.0); HEMOGLOBIN 13.1 g/dl (12.0-15.5); LYMPH # 2.6 10^3/uL (1.5-5.0); LYMPH % 37.9 % (24.0-44.0); MEAN CORPUSCULAR HEMOGLOBIN 25.7 pg (27.0-33.0); MEAN CORPUSCULAR HGB CONC 31.4 g/dl (32.0-36.5); MEAN CORPUSCULAR VOLUME 81.9 fl (80.0-96.0); MONO # 0.7 10^3/uL (0.0-0.8); MONO % 10.2 % (2.0-8.0); NEUTROPHILS # 3.4 10^3/uL (1.5-8.5); NEUTROPHILS % 49.7 % (36.0-66.0); PLATELET COUNT, AUTOMATED 272 10^3/uL (150-450); RED BLOOD COUNT 5.09 10^6/uL (4.00-5.40); WHITE BLOOD COUNT 6.9 10^3/uL (4.0-10.0)
[2024-03-29 17:50] LABS: BLOOD UREA NITROGEN 13 MG/DL (9-23); CALCIUM LEVEL 9.6 MG/DL (8.3-10.6); CARBON DIOXIDE LEVEL 28 MMOL/L (20-31); CHLORIDE LEVEL 106 MMOL/L (98-107); CREATININE FOR GFR 0.94 MG/DL (0.55-1.30); GLOMERULAR FILTRATION RATE > 60.0 (>45); GLUCOSE, FASTING 72 MG/DL (74-106); POTASSIUM SERUM 4.5 MMOL/L (3.5-5.1); SODIUM LEVEL 140 MMOL/L (136-145)
[2024-03-29 17:52] LABS: FREE T4 1.12 NG/DL (0.89-1.76)
[2024-03-29 17:53] LABS: THYROID STIMULATING HORMONE 1.231 uIU/ML (0.55-4.78)
[2024-03-29 20:29] VITALS: BP 178/84; TEMP 98.1; O2SAT 98
== END 2024-03-29 21:07 | disposition home or self-care (01) ==
LOC: M ED 14:34
DX: S80.11XA Contusion of right lower leg, initial encounter (principal); E11.9 Type 2 diabetes mellitus without complications; I10 Essential (primary) hypertension; K76.0 Fatty (change of) liver, not elsewhere classified; E78.5 Hyperlipidemia, unspecified; F32.A Depression, unspecified; Z86.79 Personal history of other diseases of the circulatory system; Z87.891 Personal history of nicotine dependence; Z88.8 Allergy status to other drugs, medicaments and biological substances; Z91.040 Latex allergy status; Z91.048 Other nonmedicinal substance allergy status; Z79.01 Long term (current) use of anticoagulants; Z79.1 Long term (current) use of non-steroidal anti-inflammatories (NSAID); Z79.82 Long term (current) use of aspirin; Z79.02 Long term (current) use of antithrombotics/antiplatelets; Z79.4 Long term (current) use of insulin; Z79.810 Long term (current) use of selective estrogen receptor modulators (SERMs); Z79.899 Other long term (current) drug therapy; Y92.009 Unspecified place in unspecified non-institutional (private) residence as the place of occurrence of the external cause; Y93.89 Activity, other specified; Y99.9 Unspecified external cause status

== ENCOUNTER → 2024-04-01 | Outpatient (REF) | payer MEDICARE, MEDICAID ==
[2024-04-01 17:49] LABS: APPEARANCE, URINE HAZY (CLEAR); BACTERIA, URINE AUTO 3+ (NEGATIVE); BILIRUBIN, URINE AUTO NEGATIVE (NEGATIVE); BLOOD, URINE BLOOD NEGATIVE (NEGATIVE); COLOR, URINE YELLOW (YELLOW); GLUCOSE, URINE (UA) AUTO 3+ mg/dL (NEGATIVE); KETONE, URINE AUTO NEGATIVE (NEGATIVE); LEUKOCYTE ESTERASE, URINE AUTO 2+ (NEGATIVE); MUCUS, URINE SMALL (NEGATIVE); NITRITE, URINE AUTO POSITIVE (NEGATIVE); PROTEIN, URINE AUTO NEGATIVE (NEGATIVE); RBC, URINE AUTO 0 /HPF (0-3); SPECIFIC GRAVITY URINE AUTO 1.018 (1.002-1.035); SQUAMOUS EPITHELIAL CELL UR AU 3 /HPF (0-6); UROBILINOGEN, URINE AUTO 0.2 mg/dL (0.0-2.0); WBC, URINE AUTO 114 /HPF (0-3)
== END ==
PROVIDERS: ATTEND Nurse Practitioner Family
DX: R39.9 Unspecified symptoms and signs involving the genitourinary system (principal)

== ENCOUNTER → 2024-05-02 | Outpatient (REF) | payer MEDICARE, MEDICAID ==
[~2024-05-02] MED LIST changes: +GABA-1490 PO; -GABA600T4 PO; +METH85CR6 TOP; -MUSCCRE9 TOP
[2024-05-02 15:26] LABS: BASO % 0.3 % (0.0-1.0); EOS # 0.2 10^3/uL (0.0-0.5); EOS % 2.7 % (0.0-3.0); HEMATOCRIT 39.3 % (36.0-47.0); HEMOGLOBIN 12.4 g/dl (12.0-15.5); LYMPH # 2.4 10^3/uL (1.5-5.0); LYMPH % 37.5 % (24.0-44.0); MEAN CORPUSCULAR HEMOGLOBIN 25.5 pg (27.0-33.0); MEAN CORPUSCULAR HGB CONC 31.6 g/dl (32.0-36.5); MEAN CORPUSCULAR VOLUME 80.9 fl (80.0-96.0); MONO # 0.7 10^3/uL (0.0-0.8); MONO % 10.9 % (2.0-8.0); NEUTROPHILS # 3.1 10^3/uL (1.5-8.5); NEUTROPHILS % 48.4 % (36.0-66.0); PLATELET COUNT, AUTOMATED 228 10^3/uL (150-450); RED BLOOD COUNT 4.86 10^6/uL (4.00-5.40); WHITE BLOOD COUNT 6.3 10^3/uL (4.0-10.0)
[2024-05-02 15:48] LABS: ALBUMIN 3.6 G/DL (3.2-5.2); ALKALINE PHOSPHATASE 66 U/L (46-116); ALT/SGPT 35 U/L (7.0-40); AST/SGOT 25 U/L (<34); BILIRUBIN,TOTAL 0.3 MG/DL (0.3-1.2); BLOOD UREA NITROGEN 13 MG/DL (9-23); CALCIUM LEVEL 9.2 MG/DL (8.3-10.6); CARBON DIOXIDE LEVEL 25 MMOL/L (20-31); CHLORIDE LEVEL 108 MMOL/L (98-107); CHOLESTEROL LEVEL 151 MG/DL (<200); CHOLESTEROL RISK RATIO 3.03 (<5); CREATININE FOR GFR 1.04 MG/DL (0.55-1.30); GLOMERULAR FILTRATION RATE 56.3 (>45); GLUCOSE, FASTING 101 MG/DL (74-106); HDL CHOLESTEROL 49.7 MG/DL (>40); LDL CHOLESTEROL 78.7 MG/DL (<100); NON-HDL-C 101.3 MG/DL; POTASSIUM SERUM 4.4 MMOL/L (3.5-5.1); SODIUM LEVEL 141 MMOL/L (136-145); TOTAL PROTEIN 6.4 G/DL (5.7-8.2); TRIGLYCERIDES LEVEL 113 MG/DL (<150)
[2024-05-02 15:56] LABS: FOLATE > 24.00 NG/ML (>5.4); VITAMIN B12 LEVEL > 2000 PG/ML (211-911)
[2024-05-02 16:47] LABS: HEMOGLOBIN A1c 5.1 % (4.0-6.0)
== END ==
PROVIDERS: ATTEND Nurse Practitioner Family
DX: E11.9 Type 2 diabetes mellitus without complications (principal); E55.9 Vitamin D deficiency, unspecified; E53.8 Deficiency of other specified B group vitamins; E78.5 Hyperlipidemia, unspecified; R26.81 Unsteadiness on feet; I69.351 Hemiplegia and hemiparesis following cerebral infarction affecting right dominant side; I48.0 Paroxysmal atrial fibrillation; I12.9 Hypertensive chronic kidney disease with stage 1 through stage 4 chronic kidney disease, or unspecified chronic kidney disease; M32.9 Systemic lupus erythematosus, unspecified; G47.00 Insomnia, unspecified; K21.9 Gastro-esophageal reflux disease without esophagitis; D50.9 Iron deficiency anemia, unspecified; F32.9 Major depressive disorder, single episode, unspecified; N18.30 Chronic kidney disease, stage 3 unspecified; D12.6 Benign neoplasm of colon, unspecified; K59.00 Constipation, unspecified; Z12.31 Encounter for screening mammogram for malignant neoplasm of breast; Z12.11 Encounter for screening for malignant neoplasm of colon; Z12.4 Encounter for screening for malignant neoplasm of cervix; Z79.01 Long term (current) use of anticoagulants; Z51.81 Encounter for therapeutic drug level monitoring
CPT/HCPCS: 36415; 80053; 80061; 82306; 82607; 82746; 83036; 85025; G0463

== ENCOUNTER → 2024-05-02 | Outpatient (CLI) | payer MEDICARE, MEDICAID ==
[~2024-05-02] MED LIST changes: -GABA-1490 PO; +GABA600T4 PO; -METH85CR6 TOP; +MUSCCRE9 TOP
[2024-05-02 12:46] LABS: BASO % 0.5 % (0.0-1.0); EOS # 0.1 10^3/uL (0.0-0.5); EOS % 2.2 % (0.0-3.0); HEMATOCRIT 41.7 % (36.0-47.0); LYMPH # 2.1 10^3/uL (1.5-5.0); LYMPH % 33.4 % (24.0-44.0); MEAN CORPUSCULAR HEMOGLOBIN 25.6 pg (27.0-33.0); MEAN CORPUSCULAR HGB CONC 31.2 g/dl (32.0-36.5); MEAN CORPUSCULAR VOLUME 82.1 fl (80.0-96.0); MONO # 0.6 10^3/uL (0.0-0.8); MONO % 10.2 % (2.0-8.0); NEUTROPHILS # 3.3 10^3/uL (1.5-8.5); NEUTROPHILS % 53.5 % (36.0-66.0); PLATELET COUNT, AUTOMATED 231 10^3/uL (150-450); RED BLOOD COUNT 5.08 10^6/uL (4.00-5.40); WHITE BLOOD COUNT 6.3 10^3/uL (4.0-10.0)
[2024-05-02 13:04] LABS: INR 1.83; PROTHROMBIN TIME 20.6 SECONDS (12.5-14.5)
[2024-05-02 13:28] LABS: ALKALINE PHOSPHATASE 70 U/L (46-116); ALT/SGPT 36 U/L (7.0-40); AST/SGOT 28 U/L (<34); BILIRUBIN,TOTAL 0.4 MG/DL (0.3-1.2); BLOOD UREA NITROGEN 13 MG/DL (9-23); CALCIUM LEVEL 9.6 MG/DL (8.3-10.6); CARBON DIOXIDE LEVEL 31 MMOL/L (20-31); CHLORIDE LEVEL 104 MMOL/L (98-107); CHOLESTEROL LEVEL 166 MG/DL (<200); CHOLESTEROL RISK RATIO 2.94 (<5); CREATININE FOR GFR 1.03 MG/DL (0.55-1.30); FOLATE > 24.00 NG/ML (>5.4); FREE T4 1.13 NG/DL (0.89-1.76); GLOMERULAR FILTRATION RATE 56.9 (>45); GLUCOSE, FASTING 95 MG/DL (74-106); HDL CHOLESTEROL 56.3 MG/DL (>40); LDL CHOLESTEROL 88.1 MG/DL (<100); NON-HDL-C 109.7 MG/DL; POTASSIUM SERUM 4.3 MMOL/L (3.5-5.1); SODIUM LEVEL 139 MMOL/L (136-145); THYROID STIMULATING HORMONE 2.222 uIU/ML (0.55-4.78); TOTAL PROTEIN 6.7 G/DL (5.7-8.2); TRIGLYCERIDES LEVEL 108 MG/DL (<150)
[2024-05-02 13:33] LABS: TOTAL 25(OH) VITAMIN D 76.6 NG/ML (20.0-100.0)
[2024-05-02 13:35] LABS: VITAMIN B12 LEVEL > 2000 PG/ML (211-911)
== END ==
LOC: M PLALAB 10:06
PROVIDERS: ATTEND Nurse Practitioner Family
DX: Z51.81 Encounter for therapeutic drug level monitoring (principal); E11.9 Type 2 diabetes mellitus without complications; E55.9 Vitamin D deficiency, unspecified; E53.8 Deficiency of other specified B group vitamins; E78.5 Hyperlipidemia, unspecified

== ENCOUNTER → 2024-05-04 | Outpatient (REF) | payer MEDICARE, MEDICAID ==
[2024-05-04 14:12] LABS: APPEARANCE, URINE CLOUDY (CLEAR); BACTERIA, URINE AUTO NEGATIVE (NEGATIVE); BILIRUBIN, URINE AUTO NEGATIVE (NEGATIVE); BLOOD, URINE BLOOD 1+ (NEGATIVE); COLOR, URINE YELLOW (YELLOW); GLUCOSE, URINE (UA) AUTO 3+ mg/dL (NEGATIVE); KETONE, URINE AUTO NEGATIVE (NEGATIVE); LEUKOCYTE ESTERASE, URINE AUTO 3+ (NEGATIVE); NITRITE, URINE AUTO NEGATIVE (NEGATIVE); PROTEIN, URINE AUTO 1+ mg/dL (NEGATIVE); RBC, URINE AUTO 68 /HPF (0-3); SPECIFIC GRAVITY URINE AUTO 1.027 (1.002-1.035); SQUAMOUS EPITHELIAL CELL UR AU 11 /HPF (0-6); UROBILINOGEN, URINE AUTO 0.2 mg/dL (0.0-2.0); WBC, URINE AUTO TNTC /HPF (0-3)
[2024-05-04 14:39] LABS: CREATININE, URINE 141.1 MG/DL; MAU/CREAT RATIO 48.9 MCG/MG (0.0-30.0)
== END ==
PROVIDERS: ATTEND Nurse Practitioner Family
DX: N39.0 Urinary tract infection, site not specified (principal); E11.9 Type 2 diabetes mellitus without complications

== ENCOUNTER → 2024-05-20 | Outpatient (REF) | payer MEDICARE, MEDICAID ==
[2024-05-20 17:11] LABS: INR 3.71; PROTHROMBIN TIME 35.4 SECONDS (12.5-14.5)
== END ==
PROVIDERS: ATTEND Internal Medicine Hematology
DX: Z51.81 Encounter for therapeutic drug level monitoring (principal); Z79.01 Long term (current) use of anticoagulants

== ENCOUNTER → 2024-05-23 | Outpatient (REF) | payer MEDICARE, MEDICAID ==
[2024-05-23 12:59] LABS: INR 2.86; PROTHROMBIN TIME 28.9 SECONDS (12.5-14.5)
== END ==
PROVIDERS: ATTEND Internal Medicine Hematology
DX: Z51.81 Encounter for therapeutic drug level monitoring (principal); Z79.01 Long term (current) use of anticoagulants

== ENCOUNTER → 2024-06-05 | Outpatient (REF) | payer MEDICARE, MEDICAID ==
[2024-06-05 01:11] LABS: APPEARANCE, URINE HAZY (CLEAR); BACTERIA, URINE AUTO NEGATIVE (NEGATIVE); BILIRUBIN, URINE AUTO NEGATIVE (NEGATIVE); BLOOD, URINE BLOOD NEGATIVE (NEGATIVE); COLOR, URINE YELLOW (YELLOW); GLUCOSE, URINE (UA) AUTO 3+ mg/dL (NEGATIVE); KETONE, URINE AUTO NEGATIVE (NEGATIVE); LEUKOCYTE ESTERASE, URINE AUTO 2+ (NEGATIVE); MUCUS, URINE SMALL (NEGATIVE); NITRITE, URINE AUTO NEGATIVE (NEGATIVE); PROTEIN, URINE AUTO 1+ mg/dL (NEGATIVE); RBC, URINE AUTO 14 /HPF (0-3); SPECIFIC GRAVITY URINE AUTO 1.029 (1.002-1.035); SQUAMOUS EPITHELIAL CELL UR AU 1 /HPF (0-6); UROBILINOGEN, URINE AUTO 0.2 mg/dL (0.0-2.0); WBC, URINE AUTO 145 /HPF (0-3)
== END ==
PROVIDERS: ATTEND Nurse Practitioner Family
DX: N39.0 Urinary tract infection, site not specified (principal)

== ENCOUNTER → 2024-06-24 | Outpatient (REF) | payer MEDICARE, MEDICAID ==
[~2024-06-24] MED LIST changes: +METH85CR6 TOP; -MUSCCRE9 TOP
[2024-06-24 07:42] LABS: INR 2.74
== END ==
PROVIDERS: ATTEND Nurse Practitioner Family
DX: Z51.81 Encounter for therapeutic drug level monitoring (principal); Z79.01 Long term (current) use of anticoagulants

== ENCOUNTER → 2024-07-26 | Outpatient (CLI) | payer MEDICARE, MEDICAID ==
[~2024-07-26] MED LIST changes: +GABA-1172 PO; +GABA-1490 PO; -GABA-282 PO; -GABA600T4 PO
== END ==
LOC: M EKG 11:21
PROVIDERS: ATTEND Internal Medicine Cardiovascular Disease
DX: R00.2 Palpitations (principal); Z53.9 Procedure and treatment not carried out, unspecified reason

== ENCOUNTER → 2024-08-05 | Outpatient (REF) | payer MEDICARE, MEDICAID ==
[2024-08-05 10:11] LABS: INR 2.61
== END ==
PROVIDERS: ATTEND Nurse Practitioner Family
DX: Z51.81 Encounter for therapeutic drug level monitoring (principal)

== ENCOUNTER → 2024-09-13 | Outpatient (CLI) | payer MEDICARE, MEDICAID | LOC: M PLAIMG 12:15 | PROVIDERS: ATTEND Internal Medicine Cardiovascular Disease | DX: R94.31 Abnormal electrocardiogram [ECG] [EKG] (principal); R60.0 Localized edema; I10 Essential (primary) hypertension ==

== ENCOUNTER → 2024-09-26 | Outpatient (REF) | payer MEDICARE, MEDICAID ==
[2024-09-26 09:44] LABS: INR 3.11; PROTHROMBIN TIME 31.9 SECONDS (12.5-14.5)
== END ==
PROVIDERS: ATTEND Nurse Practitioner Family
DX: Z79.01 Long term (current) use of anticoagulants (principal)

== ENCOUNTER 2024-10-21 07:58 | Day surgery (SDC) | payer MEDICARE, MEDICAID ==
[~2024-10-21] VITALS: Ht 170.2 cm; Wt 97.8 kg
[~2024-10-21 07:58] MED LIST changes: +ALIG4CAP PO; +B-12100010 PO; +FOLI1TAB11 PO; +SUCR1TAB56 PO
[2024-10-21] MEDS: SODIUM BICARBONATE 8.4% INJ 50MEQ 50ML VIAL XX ONE (08:30)
[2024-10-21] MEDS: LIDOCAINE W/EPINEPHRINE 1% 20ML VIAL XX ONE (08:30)
[2024-10-21] MEDS ORDERED: propofoL 200 MG/20 ML VIAL As Ordered ONE (09:03)
[2024-10-21] MEDS ORDERED: LIDOCAINE 2% 100MG/5ML SDV (FOR ANES.) As Ordered ONE (09:03)
[2024-10-21] MEDS ORDERED: KETOROLAC 60MG 2ML VIAL As Ordered ONE (09:03)
[2024-10-21] MEDS ORDERED: fentaNYL 250 MCG/5 ML INJECTION As Ordered ONE (09:03)
[2024-10-21] MEDS ORDERED: ONDANSETRON 4MG 2ML VIAL As Ordered ONE (09:03)
[2024-10-21] MEDS ORDERED: MIDAZOLAM INJ 2MG/2ML VIAL As Ordered ONE (09:04)
[2024-10-21] MEDS ORDERED: BACITRACIN OINTMENT 30GM TUBE As Ordered ONE (09:26)
[2024-10-21 10:06] VITALS: BP 146/74; TEMP 97; O2SAT 97
== END 2024-10-21 10:40 | disposition home or self-care (01) ==
LOC: M SDC 07:58
PROVIDERS: ATTEND Orthopaedic Surgery Hand Surgery
DX: M65.332 Trigger finger, left middle finger (principal); I48.0 Paroxysmal atrial fibrillation; E11.9 Type 2 diabetes mellitus without complications; I10 Essential (primary) hypertension; M32.9 Systemic lupus erythematosus, unspecified; D64.9 Anemia, unspecified; I69.351 Hemiplegia and hemiparesis following cerebral infarction affecting right dominant side; Z79.82 Long term (current) use of aspirin; Z79.84 Long term (current) use of oral hypoglycemic drugs; Z79.899 Other long term (current) drug therapy; Z87.891 Personal history of nicotine dependence

== ENCOUNTER → 2024-11-04 | Outpatient (REF) | payer MEDICARE, MEDICAID ==
[~2024-11-04] MED LIST changes: -ALIG4CAP PO; +ALIG4CAP3 PO; +ISON1TAB5 PO; -ISON300T18 PO
[2024-11-04 08:51] LABS: BASO % 0.6 % (0.0-1.0); EOS # 0.2 10^3/uL (0.0-0.5); EOS % 2.8 % (0.0-3.0); HEMATOCRIT 37.3 % (36.0-47.0); HEMOGLOBIN 11.4 g/dl (12.0-15.5); LYMPH # 2.4 10^3/uL (1.5-5.0); LYMPH % 43.9 % (24.0-44.0); MEAN CORPUSCULAR HEMOGLOBIN 24.6 pg (27.0-33.0); MEAN CORPUSCULAR HGB CONC 30.6 g/dl (32.0-36.5); MEAN CORPUSCULAR VOLUME 80.4 fl (80.0-96.0); MONO # 0.6 10^3/uL (0.0-0.8); MONO % 11.7 % (2.0-8.0); NEUTROPHILS # 2.2 10^3/uL (1.5-8.5); PLATELET COUNT, AUTOMATED 264 10^3/uL (150-450); RED BLOOD COUNT 4.64 10^6/uL (4.00-5.40); WHITE BLOOD COUNT 5.4 10^3/uL (4.0-10.0)
[2024-11-04 09:12] LABS: IRON (FE) 49 UG/DL (50-170); PERCENT SATURATION 16.3 % (13.2-45.0); TOTAL IRON BINDING CAPACITY 300 UG/DL (250-425)
[2024-11-04 09:13] LABS: ALBUMIN 3.2 G/DL (3.2-5.2); ALKALINE PHOSPHATASE 73 U/L (35-104); ALT/SGPT 17 U/L (7.0-40); AST/SGOT 14 U/L (<34); BILIRUBIN,TOTAL 0.3 MG/DL (0.3-1.2); BLOOD UREA NITROGEN 16 MG/DL (9-23); CALCIUM LEVEL 9.3 MG/DL (8.3-10.6); CARBON DIOXIDE LEVEL 29 MMOL/L (20-31); CHLORIDE LEVEL 108 MMOL/L (98-107); CHOLESTEROL LEVEL 144 MG/DL (<200); CHOLESTEROL RISK RATIO 2.85 (<5); CREATININE FOR GFR 1.21 MG/DL (0.55-1.30); GLOMERULAR FILTRATION RATE 57.1 (>45); GLUCOSE, FASTING 142 MG/DL (74-106); HDL CHOLESTEROL 50.4 MG/DL (>40); NON-HDL-C 93.6 MG/DL; POTASSIUM SERUM 4.4 MMOL/L (3.5-5.1); SODIUM LEVEL 143 MMOL/L (136-145); TOTAL PROTEIN 6.1 G/DL (5.7-8.2); TRIGLYCERIDES LEVEL 88 MG/DL (<150)
[2024-11-04 09:14] LABS: FREE T4 1.05 NG/DL (0.89-1.76)
[2024-11-04 09:15] LABS: THYROID STIMULATING HORMONE 0.754 uIU/ML (0.55-4.78)
[2024-11-04 09:16] LABS: VITAMIN B12 LEVEL > 2000 PG/ML (211-911)
== END ==
PROVIDERS: ATTEND Nurse Practitioner Family
DX: E11.9 Type 2 diabetes mellitus without complications (principal); E55.9 Vitamin D deficiency, unspecified; E53.8 Deficiency of other specified B group vitamins; D50.9 Iron deficiency anemia, unspecified; E78.5 Hyperlipidemia, unspecified; I48.0 Paroxysmal atrial fibrillation

== ENCOUNTER → 2024-11-08 | Outpatient (REF) | payer MEDICARE, MEDICAID ==
[2024-11-08 18:14] LABS: AMORPHOUS SEDIMENT SMALL (NEGATIVE); APPEARANCE, URINE CLOUDY (CLEAR); BACTERIA, URINE AUTO 1+ (NEGATIVE); BILIRUBIN, URINE AUTO NEGATIVE (NEGATIVE); BLOOD, URINE BLOOD NEGATIVE (NEGATIVE); COLOR, URINE YELLOW (YELLOW); GLUCOSE, URINE (UA) AUTO 3+ mg/dL (NEGATIVE); KETONE, URINE AUTO NEGATIVE (NEGATIVE); LEUKOCYTE ESTERASE, URINE AUTO 2+ (NEGATIVE); MUCUS, URINE SMALL (NEGATIVE); NITRITE, URINE AUTO POSITIVE (NEGATIVE); PROTEIN, URINE AUTO NEGATIVE (NEGATIVE); RBC, URINE AUTO 62 /HPF (0-3); SPECIFIC GRAVITY URINE AUTO 1.026 (1.002-1.035); SQUAMOUS EPITHELIAL CELL UR AU 4 /HPF (0-6); UROBILINOGEN, URINE AUTO 0.2 mg/dL (0.0-2.0); WBC, URINE AUTO TNTC /HPF (0-3); YEAST LIKE CELL URINE AUTO LARGE
== END ==
PROVIDERS: ATTEND Nurse Practitioner Family
DX: R39.15 Urgency of urination (principal)

== ENCOUNTER → 2024-11-09 | Outpatient (REF) | payer MEDICARE, MEDICAID ==
[2024-11-09 10:56] LABS: URIC ACID 5.7 MG/DL (3.1-7.8)
[2024-11-09 10:59] LABS: C REACTIVE PROTEIN QUANTITATIV 0.54 MG/DL (<1.0)
[2024-11-09 11:01] LABS: RHEUMATOID FACTOR QUANT < 3.5 IU/ML (<14)
[2024-11-09 11:06] LABS: HEMOGLOBIN A1c 6.8 % (4.0-6.0)
[2024-11-11 08:32] LABS: ANA PATTERN Nuclear, Speckled (NEGATIVE); ANA PATTERN 2 Nuclear, Homogeneous; ANA SCREEN, IFA POSITIVE (NEGATIVE)
[2024-11-11 11:23] LABS: CYCLIC CITRULLINATED PEPTIDE < 16 UNITS (<20)
[2024-11-17 12:07] LABS: HLA B5701-1 Negative (.)
== END ==
PROVIDERS: ATTEND Nurse Practitioner Family
DX: R39.15 Urgency of urination (principal); E11.9 Type 2 diabetes mellitus without complications; M32.9 Systemic lupus erythematosus, unspecified

== ENCOUNTER → 2024-11-16 | Outpatient (REF) | payer MEDICARE, MEDICAID ==
[2024-11-16 13:45] LABS: INR 2.33; PROTHROMBIN TIME 25.6 SECONDS (12.5-14.5)
== END ==
PROVIDERS: ATTEND Nurse Practitioner Family
DX: Z51.81 Encounter for therapeutic drug level monitoring (principal); Z79.01 Long term (current) use of anticoagulants

== ENCOUNTER → 2024-12-30 | Outpatient (CLI) | payer MEDICARE, MEDICAID | LOC: M CARPUL 14:03 | PROVIDERS: ATTEND Registered Nurse | DX: I31.39 Other pericardial effusion (noninflammatory) (principal) ==

== ENCOUNTER → 2025-01-02 | Outpatient (REF) | payer MEDICARE, MEDICAID ==
[2025-01-02 11:53] LABS: INR 2.09; PROTHROMBIN TIME 23.6 SECONDS (12.5-14.5)
== END ==
PROVIDERS: ATTEND Nurse Practitioner Family
DX: Z79.01 Long term (current) use of anticoagulants (principal)

== ENCOUNTER → 2025-05-03 | Outpatient (REF) | payer MEDICAID, MEDICARE ==
[~2025-05-03] MED LIST changes: -AMBI5TAB PO; +AMLO-751 PO; -AMLO10TA PO; +CEFD1CAP9 PO; +CETI10TA4 PO; +DAPA10TA5 PO; +ELIQ5TAB PO; +FLUT50BL; +GENT1SOL16 OU; +HYDR25TA87 PO; +POTA1TAB23 PO; +SENN8.6T28 PO; +SULF400T14 PO; +TRUL10IN SQ; +ZOLP-532 PO
[2025-05-03 09:30] LABS: PLATELET COUNT, AUTOMATED 329 10^3/uL (150-450)
[2025-05-03 10:01] LABS: CALCIUM LEVEL 9.5 MG/DL (8.3-10.6); CARBON DIOXIDE LEVEL 24.0 MMOL/L (20-31); CHLORIDE LEVEL 105.0 MMOL/L (98-107); CREATININE FOR GFR 1.19 MG/DL (0.55-1.30); GLOMERULAR FILTRATION RATE 49.8 (>45); POTASSIUM SERUM 4.1 MMOL/L (3.5-5.1); SODIUM LEVEL 143.0 MMOL/L (136-145)
== END ==
PROVIDERS: ATTEND Physician Assistant
DX: I48.91 Unspecified atrial fibrillation (principal)

== ENCOUNTER → 2025-05-10 | Outpatient (REF) | payer MEDICAID, MEDICARE ==
[2025-05-10 09:11] LABS: PLATELET COUNT, AUTOMATED 377 10^3/uL (150-450)
[2025-05-10 09:38] LABS: CALCIUM LEVEL 9.8 MG/DL (8.3-10.6); CARBON DIOXIDE LEVEL 27.0 MMOL/L (20-31); CHLORIDE LEVEL 107.0 MMOL/L (98-107); CREATININE FOR GFR 1.13 MG/DL (0.55-1.30); GLOMERULAR FILTRATION RATE 53.0 (>45); POTASSIUM SERUM 4.7 MMOL/L (3.5-5.1); SODIUM LEVEL 145.0 MMOL/L (136-145)
== END ==
PROVIDERS: ATTEND Physician Assistant
DX: I48.91 Unspecified atrial fibrillation (principal)

== ENCOUNTER → 2025-05-17 | Outpatient (REF) | payer MEDICAID, MEDICARE ==
[2025-05-17 10:32] LABS: PLATELET COUNT, AUTOMATED 448 10^3/uL (150-450)
[2025-05-17 11:05] LABS: CALCIUM LEVEL 9.4 MG/DL (8.3-10.6); CARBON DIOXIDE LEVEL 27.0 MMOL/L (20-31); CHLORIDE LEVEL 106.0 MMOL/L (98-107); CREATININE FOR GFR 1.16 MG/DL (0.55-1.30); GLOMERULAR FILTRATION RATE 51.0 (>45); POTASSIUM SERUM 4.5 MMOL/L (3.5-5.1); SODIUM LEVEL 144.0 MMOL/L (136-145)
== END ==
PROVIDERS: ATTEND Physician Assistant
DX: I48.91 Unspecified atrial fibrillation (principal)

== ENCOUNTER → 2025-05-24 | Outpatient (REF) | payer MEDICAID, MEDICARE ==
[2025-05-24 08:30] LABS: PLATELET COUNT, AUTOMATED 322 10^3/uL (150-450)
[2025-05-24 09:04] LABS: CALCIUM LEVEL 9.6 MG/DL (8.3-10.6); CARBON DIOXIDE LEVEL 25.0 MMOL/L (20-31); CHLORIDE LEVEL 107.0 MMOL/L (98-107); CREATININE FOR GFR 1.18 MG/DL (0.55-1.30); GLOMERULAR FILTRATION RATE 50.0 (>45); POTASSIUM SERUM 4.4 MMOL/L (3.5-5.1); SODIUM LEVEL 145.0 MMOL/L (136-145)
== END ==
PROVIDERS: ATTEND Physician Assistant
DX: I48.91 Unspecified atrial fibrillation (principal)

== ENCOUNTER → 2025-05-31 | Outpatient (REF) | payer MEDICARE, MEDICAID | PROVIDERS: ATTEND Physician Assistant | DX: I48.91 Unspecified atrial fibrillation (principal); Z85.3 Personal history of malignant neoplasm of breast ==

== ENCOUNTER → 2025-06-14 | Outpatient (REF) | payer MEDICARE, MEDICAID ==
[2025-06-14 12:16] LABS: PLATELET COUNT, AUTOMATED 351 10^3/uL (150-450)
[2025-06-14 12:50] LABS: CALCIUM LEVEL 9.6 MG/DL (8.3-10.6); CARBON DIOXIDE LEVEL 27.0 MMOL/L (20-31); CHLORIDE LEVEL 107.0 MMOL/L (98-107); CREATININE FOR GFR 1.09 MG/DL (0.55-1.30); GLOMERULAR FILTRATION RATE 55.0 (>45); POTASSIUM SERUM 4.9 MMOL/L (3.5-5.1); SODIUM LEVEL 144.0 MMOL/L (136-145)
== END ==
PROVIDERS: ATTEND Physician Assistant
DX: K92.2 Gastrointestinal hemorrhage, unspecified (principal)

== ENCOUNTER → 2025-06-16 | Outpatient (REF) | payer MEDICARE, MEDICAID ==
[2025-06-16 09:31] LABS: COMPLEMENT C4 44.4 MG/DL (12-36)
[2025-06-16 09:57] LABS: DRVV SCREEN 56.2 SECONDS
[2025-06-16 09:58] LABS: PTT LUPUS TYPE ANTICOAG SCREEN 1.45 (0-1.20)
[2025-06-16 10:05] LABS: DRVV CONFIRM 51.1 SECONDS; LUPUS CONFIRM RATIO 1.41; NORMALIZED RATIO 1.02 (0.00-1.20)
== END ==
PROVIDERS: ATTEND Internal Medicine
DX: R76.0 Raised antibody titer (principal); Z79.01 Long term (current) use of anticoagulants

== ENCOUNTER → 2025-07-12 | Outpatient (REF) | payer MEDICARE, MEDICAID ==
[~2025-07-12] MED LIST changes: +ZOLP10TA11 PO; -ZOLP10TA2 PO
[2025-07-12 12:12] LABS: PLATELET COUNT, AUTOMATED 321 10^3/uL (150-450)
[2025-07-12 12:30] LABS: CALCIUM LEVEL 9.6 MG/DL (8.3-10.6); CARBON DIOXIDE LEVEL 29.0 MMOL/L (20-31); CHLORIDE LEVEL 105.0 MMOL/L (98-107); CREATININE FOR GFR 1.2 MG/DL (0.55-1.30); GLOMERULAR FILTRATION RATE 49.0 (>45); POTASSIUM SERUM 4.5 MMOL/L (3.5-5.1); SODIUM LEVEL 143.0 MMOL/L (136-145)
== END ==
PROVIDERS: ATTEND Physician Assistant
DX: K92.2 Gastrointestinal hemorrhage, unspecified (principal)

== ENCOUNTER → 2025-07-17 | Outpatient (REF) | payer MEDICARE, MEDICAID ==
[2025-07-17 11:35] LABS: ALT/SGPT 18.0 U/L (7.0-40); AST/SGOT 13.0 U/L (<34); CALCIUM LEVEL 8.3 MG/DL (8.3-10.6); CARBON DIOXIDE LEVEL 28.0 MMOL/L (20-31); CHLORIDE LEVEL 107.0 MMOL/L (98-107); CREATININE FOR GFR 1.17 MG/DL (0.55-1.30); GLOMERULAR FILTRATION RATE 50.5 (>45); POTASSIUM SERUM 4.4 MMOL/L (3.5-5.1); SODIUM LEVEL 140.0 MMOL/L (136-145)
== END ==
PROVIDERS: ATTEND Nurse Practitioner Family
DX: N18.30 Chronic kidney disease, stage 3 unspecified (principal)

== ENCOUNTER → 2025-08-21 | Outpatient (REF) | payer MEDICARE, MEDICAID ==
[2025-08-21 14:10] LABS: BASO # 0.0 10^3/uL (0.0-0.2); BASO % 0.5 % (0.0-1.0); EOS # 0.2 10^3/uL (0.0-0.5); EOS % 3.4 % (0.0-3.0); LYMPH # 2.6 10^3/uL (1.5-5.0); LYMPH % 45.7 % (24.0-44.0); MONO # 0.5 10^3/uL (0.0-0.8); MONO % 9.5 % (2.0-8.0); NEUTROPHILS # 2.3 10^3/uL (1.5-8.5); NEUTROPHILS % 40.7 % (36.0-66.0); PLATELET COUNT, AUTOMATED 305 10^3/uL (150-450)
[2025-08-21 14:40] LABS: COMPLEMENT C4 48.0 MG/DL (12-36)
[2025-08-21 14:41] LABS: C REACTIVE PROTEIN QUANTITATIV 0.53 MG/DL (<1.0)
[2025-08-21 14:46] LABS: ALT/SGPT 18.0 U/L (7.0-40); AST/SGOT 15.0 U/L (<34); CALCIUM LEVEL 9.5 MG/DL (8.3-10.6); CARBON DIOXIDE LEVEL 25.0 MMOL/L (20-31); CHLORIDE LEVEL 104.0 MMOL/L (98-107); CREATININE FOR GFR 1.21 MG/DL (0.55-1.30); GLOMERULAR FILTRATION RATE 48.5 (>45); POTASSIUM SERUM 4.6 MMOL/L (3.5-5.1); SODIUM LEVEL 142.0 MMOL/L (136-145)
[2025-08-23 07:40] LABS: ERYTHROCYTE SEDIMENTATION RATE 11 mm/hr (0-20)
== END ==
PROVIDERS: ATTEND Internal Medicine Rheumatology
DX: R76.89 Other specified abnormal immunological findings in serum (principal); M32.9 Systemic lupus erythematosus, unspecified

== ENCOUNTER → 2025-08-22 | Outpatient (REF) | payer MEDICARE, MEDICAID | PROVIDERS: ATTEND Physician Assistant | DX: R10.11 Right upper quadrant pain (principal) ==

== ENCOUNTER → 2025-09-11 | Outpatient (CLI) | payer MEDICARE, MEDICAID | LOC: M RAD 11:12 | PROVIDERS: ATTEND Nurse Practitioner Family | DX: G62.9 Polyneuropathy, unspecified (principal); M79.662 Pain in left lower leg ==

== ENCOUNTER → 2025-09-15 | Outpatient (REF) | payer MEDICARE, MEDICAID ==
[2025-09-15 10:59] LABS: BASO # 0.0 10^3/uL (0.0-0.2); BASO % 0.8 % (0.0-1.0); EOS # 0.2 10^3/uL (0.0-0.5); EOS % 4.2 % (0.0-3.0); LYMPH # 2.0 10^3/uL (1.5-5.0); LYMPH % 38.7 % (24.0-44.0); MONO # 0.5 10^3/uL (0.0-0.8); MONO % 9.1 % (2.0-8.0); NEUTROPHILS # 2.5 10^3/uL (1.5-8.5); NEUTROPHILS % 47.0 % (36.0-66.0); PLATELET COUNT, AUTOMATED 304 10^3/uL (150-450)
[2025-09-15 11:32] LABS: ALT/SGPT 22.0 U/L (7.0-40); AST/SGOT 20.0 U/L (<34); CALCIUM LEVEL 9.6 MG/DL (8.3-10.6); CARBON DIOXIDE LEVEL 26.0 MMOL/L (20-31); CHLORIDE LEVEL 103.0 MMOL/L (98-107); CREATININE FOR GFR 1.17 MG/DL (0.55-1.30); GLOMERULAR FILTRATION RATE 50.5 (>45); POTASSIUM SERUM 4.7 MMOL/L (3.5-5.1); SODIUM LEVEL 141.0 MMOL/L (136-145)
[2025-09-15 11:33] LABS: COMPLEMENT C4 50.7 MG/DL (12-36)
== END ==
PROVIDERS: ATTEND Nurse Practitioner Family
DX: M32.9 Systemic lupus erythematosus, unspecified (principal)

== ENCOUNTER → 2025-09-15 | Outpatient (REF) | payer MEDICARE, MEDICAID | PROVIDERS: ATTEND Internal Medicine Rheumatology | DX: M32.9 Systemic lupus erythematosus, unspecified (principal); M35.00 Sjogren syndrome, unspecified; R06.02 Shortness of breath; R53.83 Other fatigue; I31.39 Other pericardial effusion (noninflammatory); R76.89 Other specified abnormal immunological findings in serum ==

== ENCOUNTER → 2025-09-18 | Outpatient (REF) | payer MEDICARE, MEDICAID ==
[2025-09-18 17:54] LABS: APPEARANCE, URINE CLOUDY (CLEAR); BACTERIA, URINE AUTO 1+ (NEGATIVE); BILIRUBIN, URINE AUTO NEGATIVE (NEGATIVE); BLOOD, URINE BLOOD 2+ (NEGATIVE); GLUCOSE, URINE (UA) AUTO 3+ mg/dL (NEGATIVE); KETONE, URINE AUTO NEGATIVE (NEGATIVE); LEUKOCYTE ESTERASE, URINE AUTO 2+ (NEGATIVE); MUCUS, URINE SMALL (NEGATIVE); NITRITE, URINE AUTO NEGATIVE (NEGATIVE); PROTEIN, URINE AUTO 2+ mg/dL (NEGATIVE); RBC, URINE AUTO 54 /HPF (0-3); SPECIFIC GRAVITY URINE AUTO 1.030 (1.002-1.035); SQUAMOUS EPITHELIAL CELL UR AU 18 /HPF (0-6); UROBILINOGEN, URINE AUTO 0.2 mg/dL (0.0-2.0); WBC, URINE AUTO TNTC /HPF (0-3); YEAST LIKE CELL URINE AUTO SMALL
[2025-09-18 18:16] LABS: TOTAL PROTEIN,RANDOM URINE 49.7 MG/DL (0.0-14.0)
== END ==
PROVIDERS: ATTEND Nurse Practitioner Family
DX: M32.9 Systemic lupus erythematosus, unspecified (principal)

== ENCOUNTER → 2025-09-18 | Outpatient (CLI) | payer MEDICARE, MEDICAID | LOC: M PLAIMG 09:37 | PROVIDERS: ATTEND Physician Assistant | DX: M19.041 Primary osteoarthritis, right hand (principal); M19.042 Primary osteoarthritis, left hand; M19.071 Primary osteoarthritis, right ankle and foot; M19.072 Primary osteoarthritis, left ankle and foot; M20.10 Hallux valgus (acquired), unspecified foot; M32.9 Systemic lupus erythematosus, unspecified ==

== ENCOUNTER → 2025-09-20 | Outpatient (REF) | payer MEDICARE, MEDICAID | PROVIDERS: ATTEND Internal Medicine Rheumatology | DX: Z53.8 Procedure and treatment not carried out for other reasons (principal) ==

== ENCOUNTER → 2025-10-02 | Outpatient (REF) | payer MEDICARE, MEDICAID ==
[~2025-10-02] MED LIST changes: -SULF400T14 PO; +SULF400T15 PO
[2025-10-02 13:01] LABS: ESTIMATED AVERAGE GLUCOSE 209.0 MG/DL (60-110)
== END ==
PROVIDERS: ATTEND Nurse Practitioner Family
DX: E11.9 Type 2 diabetes mellitus without complications (principal)

== ENCOUNTER → 2025-10-09 | Outpatient (REF) | payer MEDICARE, MEDICAID ==
[2025-10-09 10:27] LABS: PLATELET COUNT, AUTOMATED 320 10^3/uL (150-450)
[2025-10-09 10:53] LABS: CALCIUM LEVEL 8.7 MG/DL (8.3-10.6); CARBON DIOXIDE LEVEL 28.0 MMOL/L (20-31); CHLORIDE LEVEL 106.0 MMOL/L (98-107); CREATININE FOR GFR 1.09 MG/DL (0.55-1.30); GLOMERULAR FILTRATION RATE 55.0 (>45); POTASSIUM SERUM 3.9 MMOL/L (3.5-5.1); SODIUM LEVEL 144.0 MMOL/L (136-145)
== END ==
PROVIDERS: ATTEND Nurse Practitioner Family
DX: K92.2 Gastrointestinal hemorrhage, unspecified (principal)

== ENCOUNTER → 2025-10-12 | Outpatient (CLI) | payer MEDICARE, MEDICAID | LOC: M RAD 10:24 | PROVIDERS: ATTEND Nurse Practitioner Family | DX: M79.605 Pain in left leg (principal); I70.202 Unspecified atherosclerosis of native arteries of extremities, left leg ==

== ENCOUNTER → 2025-10-23 | Outpatient (REF) | payer MEDICARE, MEDICAID ==
[2025-10-23 17:48] LABS: PLATELET COUNT, AUTOMATED 325 10^3/uL (150-450)
[2025-10-23 18:11] LABS: ALT/SGPT 27.0 U/L (7.0-40); AST/SGOT 18.0 U/L (<34); CALCIUM LEVEL 8.9 MG/DL (8.3-10.6); CARBON DIOXIDE LEVEL 28.0 MMOL/L (20-31); CHLORIDE LEVEL 102.0 MMOL/L (98-107); CREATININE FOR GFR 1.16 MG/DL (0.55-1.30); GLOMERULAR FILTRATION RATE 51.0 (>45); POTASSIUM SERUM 5.2 MMOL/L (3.5-5.1); SODIUM LEVEL 139.0 MMOL/L (136-145)
== END ==
PROVIDERS: ATTEND Nurse Practitioner Family
DX: R10.11 Right upper quadrant pain (principal); E11.40 Type 2 diabetes mellitus with diabetic neuropathy, unspecified